=== PATIENT | female | born 1955 | race Caucasian/White ===

== ENCOUNTER → 2017-04-22 12:23 | Outpatient (CLI) | payer OTHER, SELFPAY ==
[2017-04-22 14:18] LABS: Hematocrit 42.1 % (37-47); Hemoglobin 14.1 g/dl (12.0-15.0); Mean Corp Hgb Conc 33.5 g/gl (32-36); Mean Corpuscular Hgb 35.6 pg (27.0-32.0); Mean Corpuscular Volume 106.3 fL (81-99); Mean Platelet Vol. 10.5 fl (6.2-12.0); Platelet Count 216 K/mm3 (150-450); RBC Distribution Width CV 15.3 % (11.6-14.6); Red Blood Count 3.96 M/mm3 (4.2-5.4)
[2017-04-22 14:19] LABS: Scan Indicated on CBC? Y/N NO
[2017-04-22 14:24] LABS: AST(SGOT) 49 U/L (15-37); Alanine Aminotransfer ALT/SGPT 49 U/L (12-78); Albumin, Serum 3.6 g/dL (3.4-5.0); Alkaline Phosphatase 45 U/L (45-117); Bilirubin, Direct 0.12 mg/dL (0.00-0.30); CPK Total, Creatine Kinase 924 U/L (26-192); Creatinine, Serum 0.56 mg/dL (0.55-1.02); EST Glomerular Filtration Rate 117 mL/min (>60); Est Glom Filt Rate - Afr Amer 142 mL/min (>60); Protein, Total 7.6 g/dL (6.4-8.2)
== END ==
PROVIDERS: Family Provider Internal Medicine; PCP Internal Medicine
DX: D89.89 Other specified disorders involving the immune mechanism, not elsewhere classified (principal); Z79.899 Other long term (current) drug therapy
CPT/HCPCS: 36415; 80076; 82550; 82565; 85027

== ENCOUNTER → 2017-06-18 09:28 | Outpatient (CLI) | payer OTHER, SELFPAY ==
[2017-06-18 12:28] LABS: Hematocrit 39.9 % (37-47); Hemoglobin 13.3 g/dl (12.0-15.0); Mean Corp Hgb Conc 33.3 g/gl (32-36); Mean Corpuscular Hgb 35.7 pg (27.0-32.0); Platelet Count 209 K/mm3 (150-450); RBC Distribution Width CV 15.9 % (11.6-14.6); RBC Distribution Width SD 61.8 fl (35.1-43.9); Red Blood Count 3.73 M/mm3 (4.2-5.4); White Blood Count 4.1 K/mm3 (4.4-11.0)
[2017-06-18 12:43] LABS: Scan Indicated on CBC? Y/N NO
[2017-06-18 13:28] LABS: AST(SGOT) 60 U/L (15-37); Alanine Aminotransfer ALT/SGPT 59 U/L (13-56); Albumin, Serum 3.4 g/dL (3.2-5.0); Alkaline Phosphatase 48 U/L (45-117); Bilirubin, Direct 0.12 mg/dL (0.00-0.30); CPK Total, Creatine Kinase 1418 U/L (26-192); Creatinine, Serum 0.41 mg/dL (0.55-1.02); EST Glomerular Filtration Rate 166 mL/min (>60); Est Glom Filt Rate - Afr Amer 201 mL/min (>60); Globulin 3.6 g/dL (2.2-4.2)
== END ==
PROVIDERS: Family Provider Internal Medicine; PCP Internal Medicine; Visit Provider Internal Medicine Rheumatology
DX: D89.89 Other specified disorders involving the immune mechanism, not elsewhere classified (principal); Z79.899 Other long term (current) drug therapy
CPT/HCPCS: 36415; 80076; 82550; 82565; 85027

== ENCOUNTER → 2017-07-14 14:09 | Outpatient (CLI) | payer OTHER, SELFPAY ==
[2017-07-14 15:41] LABS: Hemoglobin 13.1 g/dl (12.0-15.0); Mean Corp Hgb Conc 33.6 g/gl (32-36); Mean Corpuscular Hgb 35.7 pg (27.0-32.0); Mean Corpuscular Volume 106.3 fL (81-99); Mean Platelet Vol. 11.1 fl (6.2-12.0); Platelet Count 209 K/mm3 (150-450); RBC Distribution Width SD 57.7 fl (35.1-43.9); Red Blood Count 3.67 M/mm3 (4.2-5.4); White Blood Count 4.9 K/mm3 (4.4-11.0)
[2017-07-14 15:47] LABS: Scan Indicated on CBC? Y/N NO
[2017-07-14 15:51] LABS: AST(SGOT) 57 U/L (15-37); Alanine Aminotransfer ALT/SGPT 56 U/L (13-56); Albumin, Serum 3.6 g/dL (3.2-5.0); Alkaline Phosphatase 49 U/L (45-117); Bilirubin, Direct 0.13 mg/dL (0.00-0.30); Creatinine, Serum 0.49 mg/dL (0.55-1.02); EST Glomerular Filtration Rate 135 mL/min (>60); Est Glom Filt Rate - Afr Amer 164 mL/min (>60); Globulin 3.6 g/dL (2.2-4.2); Protein, Total 7.2 g/dL (6.4-8.2)
== END ==
PROVIDERS: Family Provider Internal Medicine; PCP Internal Medicine; Visit Provider Internal Medicine Rheumatology
DX: D89.89 Other specified disorders involving the immune mechanism, not elsewhere classified (principal); Z79.899 Other long term (current) drug therapy
CPT/HCPCS: 36415; 80076; 82565; 85027

== ENCOUNTER → 2017-08-23 09:13 | Outpatient (CLI) | payer OTHER, SELFPAY ==
[2017-08-23 12:41] LABS: Hematocrit 41.3 % (37-47); Mean Corp Hgb Conc 33.9 g/gl (32-36); Mean Corpuscular Hgb 36.2 pg (27.0-32.0); Mean Corpuscular Volume 106.7 fL (81-99); Mean Platelet Vol. 10.1 fl (6.2-12.0); Platelet Count 228 K/mm3 (150-450); RBC Distribution Width CV 14.9 % (11.6-14.6); Red Blood Count 3.87 M/mm3 (4.2-5.4); White Blood Count 3.5 K/mm3 (4.4-11.0)
[2017-08-23 13:08] LABS: AST(SGOT) 44 U/L (15-37); Alanine Aminotransfer ALT/SGPT 49 U/L (13-56); Albumin, Serum 3.5 g/dL (3.2-5.0); Alkaline Phosphatase 52 U/L (45-117); Bilirubin, Direct 0.16 mg/dL (0.00-0.30); CPK Total, Creatine Kinase 909 U/L (26-192); Creatinine, Serum 0.43 mg/dL (0.55-1.02); EST Glomerular Filtration Rate 159 mL/min (>60); Est Glom Filt Rate - Afr Amer 192 mL/min (>60); Globulin 3.8 g/dL (2.2-4.2); Protein, Total 7.3 g/dL (6.4-8.2)
[2017-08-23 13:14] LABS: Scan Indicated on CBC? Y/N NO
[2017-08-24 04:08] LABS: HEPATITIS B SURFACE AG Negative (Negative); Immunoglobulin A 165 mg/dL (87-352); Immunoglobulin G 1092 mg/dL (700-1600); Immunoglobulin M 202 mg/dL (26-217)
[2017-08-24 17:41] LABS: Hep B Surface Antibodies Reactive (.); Hep C Antibodies 0.1 s/co ratio (0.0-0.9); Hepatitis B Core Ab Total Negative (Negative)
== END ==
PROVIDERS: Family Provider Internal Medicine; PCP Internal Medicine
DX: Z79.899 Other long term (current) drug therapy (principal); D89.89 Other specified disorders involving the immune mechanism, not elsewhere classified
CPT/HCPCS: 36415; 80076; 82550; 82565; 82784; 85027; 86704; 86706; 86803; 87340

== ENCOUNTER → 2017-09-13 10:20 | Outpatient (CLI) | payer OTHER, SELFPAY ==
[2017-09-13 12:53] LABS: Absolute Lymphocyte Count 0.27 X10^3/ul (0.83-4.51); Absolute Neutrophil Count 3.5 X10^3/uL (2.0-7.7); Basophil# 0.03 X10^3/uL; Basophil% 0.7 % (0-1); Eosinophil# 0.09 X10^3/uL; Eosinophils% 2.2 % (0-5); Hematocrit 38.8 % (37-47); Hemoglobin 13.1 g/dl (12.0-15.0); Lymphocyte # 0.27 X10^3/ul (4.0); Lymphocyte % 6.5 % (19-41); Mean Corp Hgb Conc 33.8 g/gl (32-36); Mean Corpuscular Hgb 35.5 pg (27.0-32.0); Mean Corpuscular Volume 105.1 fL (81-99); Mean Platelet Vol. 10.5 fl (6.2-12.0); Monocyte# 0.25 X10^3/uL; Neutrophil # 3.51 X10^3/uL (2.7-7.7); Neutrophil % 84.4 % (47-70); Platelet Count 238 K/mm3 (150-450); RBC Distribution Width CV 14.8 % (11.6-14.6); RBC Distribution Width SD 55.6 fl (35.1-43.9); Red Blood Count 3.69 M/mm3 (4.2-5.4); White Blood Count 4.2 K/mm3 (4.4-11.0)
[2017-09-13 12:56] LABS: Differential Indicated SCAN CRITERIA MET; POSITIVE COUNT NO; POSITIVE DIFFERENTIAL YES; POSITIVE MORPHOLOGY NO
[2017-09-13 13:21] LABS: Basophilic Stippling RARE; Platelet Estimate ADEQUATE (ADEQ)
== END ==
PROVIDERS: Family Provider Internal Medicine; PCP Internal Medicine; Visit Provider Internal Medicine Rheumatology
DX: D72.819 Decreased white blood cell count, unspecified (principal)
CPT/HCPCS: 36415; 85025

== ENCOUNTER → 2017-10-22 12:13 | Outpatient (CLI) | payer OTHER, SELFPAY ==
[2017-10-22 14:18] LABS: Hematocrit 39.5 % (37-47); Hemoglobin 13.2 g/dl (12.0-15.0); Mean Corp Hgb Conc 33.4 g/gl (32-36); Mean Corpuscular Hgb 34.4 pg (27.0-32.0); Mean Corpuscular Volume 102.9 fL (81-99); Mean Platelet Vol. 10.2 fl (6.2-12.0); Platelet Count 204 K/mm3 (150-450); RBC Distribution Width SD 59.6 fl (35.1-43.9); Red Blood Count 3.84 M/mm3 (4.2-5.4)
[2017-10-22 14:19] LABS: Scan Indicated on CBC? Y/N NO
[2017-10-22 14:29] LABS: AST(SGOT) 33 U/L (15-37); Alanine Aminotransfer ALT/SGPT 36 U/L (13-56); Albumin, Serum 3.8 g/dL (3.2-5.0); Alkaline Phosphatase 43 U/L (45-117); Bilirubin, Direct 0.16 mg/dL (0.00-0.30); CPK Total, Creatine Kinase 577 U/L (26-192); Creatinine, Serum 0.49 mg/dL (0.55-1.02); EST Glomerular Filtration Rate 135 mL/min (>60); Est Glom Filt Rate - Afr Amer 163 mL/min (>60); Globulin 3.7 g/dL (2.2-4.2); Protein, Total 7.5 g/dL (6.4-8.2)
== END ==
PROVIDERS: Family Provider Internal Medicine; PCP Internal Medicine; Visit Provider Internal Medicine Rheumatology
DX: D89.89 Other specified disorders involving the immune mechanism, not elsewhere classified (principal); Z79.899 Other long term (current) drug therapy
CPT/HCPCS: 36415; 80076; 82550; 82565; 85027

== ENCOUNTER 2017-11-30 02:27 | Emergency (ER) | payer OTHER, SELFPAY ==
[2017-11-30 02:27] VITALS: BP 132/81; PULSE 89; RESP 18; TEMP 36.8; O2SAT 96; BMI 27.3
[2017-11-30] MEDS: Morphine 4 MG/ML Syringe IV ×2 (02:49→07:40)
[2017-11-30] MEDS: Ondansetron 4 MG/2 ML Vial IV (02:49)
[2017-11-30] MEDS: 0.9% Normal Saline 1,000 ML 150 ML IV (02:49)
[2017-11-30 03:04] LABS: Absolute Lymphocyte Count 0.21 X10^3/ul (0.83-4.51); Absolute Neutrophil Count 2.9 X10^3/uL (2.0-7.7); Basophil# 0.01 X10^3/uL; Basophil% 0.3 % (0-1); Eosinophil# 0.09 X10^3/uL; Eosinophils% 2.6 % (0-5); Hematocrit 38.9 % (37-47); Hemoglobin 13.6 g/dl (12.0-15.0); Lymphocyte # 0.21 X10^3/ul (4.0); Lymphocyte % 6.1 % (19-41); Mean Corpuscular Hgb 37.6 pg (27.0-32.0); Mean Corpuscular Volume 107.5 fL (81-99); Mean Platelet Vol. 9.8 fl (6.2-12.0); Monocyte# 0.22 X10^3/uL; Monocyte% 6.3 % (0-10); Neutrophil # 2.93 X10^3/uL (2.7-7.7); Neutrophil % 84.4 % (47-70); Platelet Count 182 K/mm3 (150-450); RBC Distribution Width CV 15.6 % (11.6-14.6); RBC Distribution Width SD 60.2 fl (35.1-43.9); Red Blood Count 3.62 M/mm3 (4.2-5.4); White Blood Count 3.5 K/mm3 (4.4-11.0)
[2017-11-30 03:10] LABS: Differential Indicated SCAN CRITERIA MET; POSITIVE COUNT NO; POSITIVE DIFFERENTIAL YES; POSITIVE MORPHOLOGY NO
[2017-11-30 03:17] LABS: AST(SGOT) 32 U/L (15-37); Alanine Aminotransfer ALT/SGPT 36 U/L (13-56); Albumin, Serum 3.6 g/dL (3.2-5.0); Alkaline Phosphatase 46 U/L (45-117); Anion Gap 10 (5-15); BUN 6 mg/dL (7-18); BUN/Creat Ratio 11.4 RATIO (10-20); Bilirubin, Direct 0.27 mg/dL (0.00-0.30); Calcium,Total 8.2 mg/dL (8.5-10.1); Chloride 101 mmol/L (98-107); Creatinine, Serum 0.53 mg/dL (0.55-1.02); EST Glomerular Filtration Rate 125 mL/min (>60); Est Glom Filt Rate - Afr Amer 151 mL/min (>60); Estimated Creatinine Clearance 95.04 ml/min; Globulin 3.9 g/dL (2.2-4.2); Glucose 103 mg/dL (74-106); Lipase 171 U/L (73-393); Potassium 3.6 mmol/L (3.5-5.1); Protein, Total 7.5 g/dL (6.4-8.2); Sodium Level 137 mmol/L (136-145)
[2017-11-30 03:56] LABS: Differential Comment SCANNED
--- NOTE | 2017-11-30 04:12 | US_ITS ---
STUDY: ABDOMINAL ULTRASOUND - RIGHT UPPER QUADRANT REASON FOR VISIT: Female, 62 years old. Right upper quadrant pain, nausea and vomiting TECHNIQUE: Ultrasound evaluation of the right upper quadrant was performed with real-time and static coe-scale imaging. TECHNICAL QUALITY: Adequate. COMPARISON: None. FINDINGS: Liver: The liver measures 16.2 cm. There is normal echogenicity of the liver. The bile ducts are within normal limits. There is hepatic color flow. The direction of portal flow is hepatopetal. There is no demonstrated mass lesion. Gallbladder: Normal distended gallbladder. The gallbladder wall measures 3 mm. There is a negative sonographic Wan's sign. There is no pericholecystic fluid. There are no gallstones. Common Bile Duct (C.B.D.): The common bile duct measures 3.2 mm. Pancreas: Normal size of the head, body and tail of the pancreas. There is normal echogenicity of the pancreas. There is no demonstrated pancreatic mass or cyst. Right Kidney: Normal size of the right kidney. The right kidney measures 11.4 x 6.3 x 5.5 cm. Normal renal cortex. The right cortex measures 1.9 cm. There is no demonstrated renal mass or cyst. There is no right hydronephrosis. US/Gallbladder IMPRESSION: Normal right upper quadrant ultrasound examination. Electronically Signed: Joseph Tony DO at 8:59 EDT Tel , Service support ,
--- NOTE | 2017-11-30 04:23 | ED.DCSUM_ITS ---
- ER Visit Summary Date of Service: 11/30/17 Chief Complaint: Patient arrives with colicky right upper quadrant abdominal pain radiating through to her back. History of Present Illness: The patient is a 62 F who presents because of colicky right upper quadrant pain for the past several hours associated with nausea and vomiting. Pain was made worse after eating chips. She does give history of intermittent pain with greasy/rich food. [place] She denies any leg pain or discoloration. She denies shortness of breath, chest pain of any type including pleuritic. She denies cough. She denies fever, chills or night sweats. She denies any ocular, auditory or visual symptoms. She denies trauma. She denies skin lesions. She denies dysuria, frequency, urgency or hematuria. She apparently did not feel well prior to vomiting. Physical Examination: Vital signs are marked for slight elevation in blood pressure. HEENT exam is marked for dry mucosa. Heart is regular without murmur , gallop or rub. S1 and S2 are normal. Lungs are clear to auscultation with good movement of air bilaterally. Abdomen is soft with tenderness in the right upper quadrant and the clinical Wan sign. Bowel sounds are slightly diminished. There is no tympana. There is no rebound tenderness. There is no CVA tenderness noted. There are no skin lesions and specifically lesions to suggest herpes varicella-zoster. Lower extremity exam is remarkable for bilateral pedal edema. Neuro exam is nonfocal. Test Results: CBC is 3.5 with 88 segs. Electro panels unremarkable. Hepatic is remarkable for total bilirubin of 1.1. 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 This may explain her neutropenia. Emergency Department Course and Treatment: IV was established she was medicated with 4 mg of Zofran and 4 mg of morphine. She had a 50% reduction in her pain. She states the pain is presently a 5. Appropriate blood work was obtained to evaluate for biliary disease and to determine if an emergent ultrasound was indicated versus waiting to the morning or outpatient. Treatment Plan: Patient was informed of her results. She was given option of staying until the weigh box tender presents in the morning for ultrasound or make arrangements for outpatient. She elected to stay in the department. At 0700 I was informed that patient requested more pain medicine. An additional 4 mg of morphine was ordered. Disposition: Pending ultrasound of the right upper quadrant. Patient was turned over Dr. Eliezer Sethi to make disposition. Impression: Acute right upper quadrant pain with nausea and vomiting This note was generated with [employer] dictation software. It may contain incorrect words, spelling, and punctuation that were not noted in review of the chart prior to signing ED Disposition - Plan for ED Patient: Chief Complaint: Abd Pain Referrals: Lorena Talbot MD [Primary Care Provider] -
[2017-11-30 05:01] VITALS: RESP 18
[2017-11-30 05:30] VITALS: BP 109/66; PULSE 71; RESP 18; O2SAT 99
[2017-11-30 07:34] VITALS: BP 102/58; PULSE 75; RESP 14; O2SAT 98
[2017-11-30 09:04] VITALS: BP 111/76; PULSE 67; RESP 14; O2SAT 97
--- NOTE | 2017-11-30 09:34 | ED.VISSUMM ---
- ER Visit Summary Date of Service: 11/30/17 Chief Complaint: [] History of Present Illness: The patient is a 62 F [] Physical Examination: [] Test Results: [] Emergency Department Course and Treatment: [] Treatment Plan: [] Disposition: [] Impression: [] This note was generated with [employer] dictation software. It may contain incorrect words, spelling, and punctuation that were not noted in review of the chart prior to signing ED Disposition - Plan for ED Patient: Disposition: Home or Assisted Living Chief Complaint: Abd Pain Diagnosis: Right upper quadrant abdominal pain of unknown etiology Instructions: ED Abdominal Pain Unkn Cause Prescriptions: Hydrocodone Bitart/Apap 5-325 [[place] 5MG-325MG] 1 tab PO Q6H PRN PRN 3 Days #10 tab PRN Reason: Pain Omeprazole [Prilosec] 20 mg PO DAILY #30 cap Referrals: Lorena Talbot MD [Primary Care Provider] -
--- NOTE | 2017-11-30 09:37 | ED.DCSUM_ITS ---
- ER Visit Summary Date of Service: 11/30/17 Chief Complaint: [] History of Present Illness: The patient is a 62 F [] Physical Examination: [] Test Results: [] Emergency Department Course and Treatment: [] Treatment Plan: [] Disposition: [] Impression: [] This note was generated with [employer] dictation software. It may contain incorrect words, spelling, and punctuation that were not noted in review of the chart prior to signing ED Disposition - Plan for ED Patient: Disposition: Home or Assisted Living Chief Complaint: Abd Pain Diagnosis: Right upper quadrant abdominal pain of unknown etiology Instructions: ED Abdominal Pain Unkn Cause Prescriptions: Hydrocodone Bitart/Apap 5-325 [[place] 5MG-325MG] 1 tab PO Q6H PRN PRN 3 Days #10 tab PRN Reason: Pain Omeprazole [Prilosec] 20 mg PO DAILY #30 cap Referrals: Lorena Talbot MD [Primary Care Provider] -
[2017-11-30 10:04] VITALS: BP 107/63; PULSE 73; RESP 16; O2SAT 100
== END 2017-11-30 10:06 | disposition home or self-care (01) ==
PROVIDERS: Emergency Provider Emergency Medicine; Family Provider Internal Medicine; PCP Internal Medicine
DX: R10.11 Right upper quadrant pain (principal); R11.2 Nausea with vomiting, unspecified; D89.89 Other specified disorders involving the immune mechanism, not elsewhere classified; Z87.891 Personal history of nicotine dependence; Z79.52 Long term (current) use of systemic steroids; Z79.899 Other long term (current) drug therapy
CPT/HCPCS: 76705; 80048; 80076; 83690; 85025; 96361; 96374; 96375; 96376; 99284; J7030; A4216; J2405

== ENCOUNTER → 2018-03-14 13:40 | Outpatient (CLI) | payer OTHER, SELFPAY ==
[2018-03-14 16:25] LABS: Absolute Lymphocyte Count 0.29 X10^3/ul (0.83-4.51); Absolute Neutrophil Count 5.5 X10^3/uL (2.0-7.7); Basophil# 0.02 X10^3/uL; Basophil% 0.3 % (0-1); Eosinophil# 0.06 X10^3/uL; Hematocrit 41.1 % (37-47); Hemoglobin 13.5 g/dl (12.0-15.0); Lymphocyte # 0.29 X10^3/ul (4.0); Lymphocyte % 4.8 % (19-41); Mean Corp Hgb Conc 32.8 g/gl (32-36); Mean Corpuscular Hgb 34.4 pg (27.0-32.0); Mean Corpuscular Volume 104.6 fL (81-99); Mean Platelet Vol. 9.9 fl (6.2-12.0); Monocyte# 0.14 X10^3/uL; Monocyte% 2.3 % (0-10); Neutrophil # 5.51 X10^3/uL (2.7-7.7); Neutrophil % 91.6 % (47-70); Platelet Count 255 K/mm3 (150-450); RBC Distribution Width CV 15.6 % (11.6-14.6); RBC Distribution Width SD 58.5 fl (35.1-43.9); Red Blood Count 3.93 M/mm3 (4.2-5.4)
[2018-03-14 16:32] LABS: Differential Indicated SCAN CRITERIA MET; POSITIVE COUNT NO; POSITIVE DIFFERENTIAL YES; POSITIVE MORPHOLOGY NO
[2018-03-14 16:50] LABS: AST(SGOT) 76 U/L (15-37); Alanine Aminotransfer ALT/SGPT 92 U/L (13-56); Albumin, Serum 3.6 g/dL (3.2-5.0); Alkaline Phosphatase 61 U/L (45-117); Bilirubin, Direct 0.14 mg/dL (0.00-0.30); CPK Total, Creatine Kinase 1954 U/L (26-192); Creatinine, Serum 0.57 mg/dL (0.55-1.02); EST Glomerular Filtration Rate 113 mL/min (>60); Est Glom Filt Rate - Afr Amer 137 mL/min (>60); Globulin 3.7 g/dL (2.2-4.2); Protein, Total 7.3 g/dL (6.4-8.2)
== END ==
PROVIDERS: Family Provider Internal Medicine; PCP Internal Medicine; Referring Provider Internal Medicine Rheumatology; Visit Provider Internal Medicine Rheumatology
DX: D89.89 Other specified disorders involving the immune mechanism, not elsewhere classified (principal); Z79.899 Other long term (current) drug therapy
CPT/HCPCS: 36415; 80076; 82550; 82565; 85025

== ENCOUNTER → 2018-03-24 09:18 | Outpatient (CLI) | payer OTHER, SELFPAY ==
--- NOTE | 2018-03-24 09:21 | BI_ITS ---
MAMMOGRAPHY - BILATERAL SCREENING REASON FOR EXAM: Female, 63 years old. Routine annual screening examination. PERTINENT HISTORY: Personal history of breast cancer. Prior left lumpectomy with radiation therapy. Sr. With breast cancer. Mother with breast cancer. Aunt with breast cancer. TECHNIQUE: Digital bilateral breast shanice (3D mammographic acquisition) in the CC and MLO projections. 2-D mediolateral oblique (MLO) and craniocaudad (CC) views of both breasts were obtained. CAD: Full Field Digital Mammography with Computer Added Detection was performed. COMPARISON: Comparison is made with prior examination dated March 16, 2017 and March 10, 2016. FINDINGS: Breast Composition: The breasts are heterogeneously dense, which may obscure small masses. There are no dominant masses or suspicious calcifications. Once again, there is evidence of a focal area of architectural distortion in the inferior midportion of the left breast in keeping with prior lumpectomy and radiation therapy. Stable postoperative scarring and focal calcification. A tissue clip marker is seen in the deep slightly lateral portion of the left breast. Stable skin thickening of the left breast. No other significant abnormalities are identified. There has been no significant change since the prior study. BI/SCREENING MAMM (CAD), BILAT IMPRESSION: Stable bilateral screening mammogram. Yearly follow-up mammogram recommended. (A) ASSESSMENT CATEGORY: BIRADS Category 2: Benign. A letter regarding these results will be sent to the patient by the facility within 30 days. Approximately 10% of breast cancers are not detected by mammography. A normal mammogram should not delay biopsy of a clinically suspicious abnormality. [id number] Electronically Signed: Tobin Salcido MD at 11:21 EST Tel [phone], Service support ,
--- NOTE | 2018-03-24 09:24 | BD_ITS ---
STUDY: DUAL ENERGY X-RAY ABSORPTIOMETRY / DXA REASON FOR EXAM: Female, 63 years old. The patient is postmenopausal. Loss of height. TECHNIQUE: Bone Mineral Density (BMD) measurements of lumbar spine and bilateral hips were obtained. COMPARISON: Comparison is made with prior study dated March 10, 2016. FINDINGS: Lumbar Spine (L1-L4): g/cm2 (1.214) / T-score (0.4) / Z-score (1.8) Findings are suggestive of normal bone density with a low fracture risk. Left Femur Total: g/cm2 (0.788) / T-score (-1.7) / Z-score (-0.7) Left Femoral Neck: g/cm2 (0.727) / T-score (-2.2) / Z-score (-0.9) Right Femur Total: g/cm2 (0.791) / T-score (-1.7) / Z-score (-0.6) Right Femoral Neck: g/cm2 (0.728) / T-score (-2.2) / Z-score (0.9) The T-Scores on the most recent prior examination were: Lumbar Spine (L1-L4): There has been improvement of bone density since the previous examination. Left Femur Total: which represents an improvement of 2.1%. Right Femur Total: which represents an improvement of 0.8%. BD/Dexa Bone Density Study IMPRESSION: The patient is considered osteopenic as outlined below according to World Jose Organization (WHO) criteria with a moderate fracture risk. There has been improvement of bone density since the previous examination. Reference Information: The T-score is the number of standard deviations above or below the standard which is normal for young adults at their peak bone mineral density. The World Health Organization (WHO) interprets the T-scores as follows: Above -1 Normal bone density Between -1 and -2.5 Osteopenia Equal to / or below -2.5 Osteoporosis As a practical clinical guideline, osteopenia may be graded as follows: Mild -1 through -1.5 Moderate -1.6 through -2.0 Severe -2.1 through -2.4 The Z-score is the number of standard deviations above or below age-matched controls. A Z-score of less than -1.5 would be considered abnormal. References: 1. NIH Osteoporosis and Related Bone Diseases http://www.osteo.org 2. International Society for Clinical Densitometry http://www.iscd.org 3. National Osteoporosis Foundation http://www.nof.org Electronically Signed: Tobin Salcido MD at 12:33 EST Tel [phone], Service support ,
--- OUTSIDE RECORDS SUMMARY | 2018-05-19 10:00 | XMS RPT_ITS | Continuity of Care Document ---
:1955 Author Organization [facility] Address [facility] [facility] [address] [place] [address] Phone Care Team Providers Name Role Phone Dahiana HERRING, Lorena Lewis Unavailable Trevor HERRING, Darline Lewis Unavailable Betzy HERRING, Jaxon Tee Unavailable Cricket Paz Unavailable Antonio Vang Unavailable Dr. Arsh Gimenez Unavailable Zaida Corbin LPN Unavailable Unavailable VINICIO Hillman Unavailable Unavailable Unavailable Unavailable Problems Name Dates Details Abdominal pain (R10.9, 789.00) Status: Active Abnormal ankle brachial index (R68.89, 796.4) Status: Active Acute foot pain, right (M79.671, 729.5) Comments: had over corrected bunion and now think needs fusion. 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 nesbitt-- CPK can be 3000+ currently 1900 / inflammation responding to treatment Status: Active BMI 25.0-25.9,adult (Z68.25, V85.21) Status: Active Cellulitis of arm (L03.119, 682.3) Comments: on omnicef 300mg bid x 10 days Status: Active Cough (R05, 786.2) Comments: not in [place] here in [place]. some PND no reflux. Status: Active Deliveries (Parity) Comments: 2 Status: Active Disordered sleep (G47.9, 780.50) Comments: using calm day and working stay away from [facility]. Status: Active Epigastric pain (R10.13, 789.06) Status: Active Hyperlipidemia, mild (E78.5, 272.4) Comments: reveiwed with patient recent tests adn ldl up but comp fairly good MPO good. willincrease fish , raw tree nuts, exercise and work with Dr. Gamble on nutural. supplements Status: Active Immunocompromised, acquired (D84.9, 279.3) Comments: from meds Status: Active Increased mean corpuscular volume (R71.8, 790.09) Comments: since 2013 ? meds tsh good. had vit b12 folate checked. usual ETOH twice a week Status: Active Inflammatory arthritis (M19.90, 714.9) Comments: saw Dr. Fitzpatrick at [facility] told antisynthatase syndrome. 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 Status: Active Nonsmoker (Z78.9, V49.89) Status: Active Osteoarthrosis, not specified whether generalized/localized, lower leg (M17.9, 715.96) Status: Active Osteoporosis (M81.0, 733.00) Comments: on Boniva 6 months and not help, doing Prolia due May 2017 labs good. no Forteo with XRT Status: Active Positive PPD (R76.11, 795.51) Comments: see ID at [facility] in past Status: Active Pregnancies () Comments: 2 Status: Active Preop examination (Z01.818, V72.84) Status: Active Screening mammogram, encounter for (Z12.31, V76.12) Status: Active Stress reaction (Renamed from Acute reaction to stress) (F43.0, 308.9) Comments: some issue with son. broke off with relationship had 2 years ago. some is winter. ding better. Status: Active Thrombophlebitis arm (I80.8, 451.84) Comments: she is already on Augmentin I do not think this is infectious I told her to use warm compresses Aleve two tablets twice a day just for a few days because of her liver elevation and a baby aspirin a day if it does not get better over the next few days or worsens will have to do an ultrasound and consider a different anabiotic Status: Active Well woman exam (Renamed from Encounter for well woman exam) (Z01.419, V72.31) Comments: 06-25-17 [facility] exam: Mammogram 03-16-17, Bone density 03-10-16, PHQ-9=46CIT=28/28 hx of total hysterectomy no pap and told by Dr. phillips no pap. colonscopy 11-06 good but family history colon cancer. need prevnar 13 Status: Active Medications Name Dates Details Ativan 1 MG Oral Tablet 1 (one) Tablet take one 30 min before flying for 0 days Quantity: 5 {Tablet} Refills: 0 Ordered:02-Nov-2017 Lorena Talbot MD, MD, Dana M Start : 02-Nov-2017 Active Comments:five11-02-17 called to BMT AZATHIOPRINE, 100MG (Oral Tablet) 2 Tablet daily for 0 days Quantity: 30 {Tablet} Refills: 0 Ordered:01-Jan-2015 Carmen Holt LPN Start : 28-Nov-2013 Active Comments:per Dr. Amari Mendoza 0.05 % External Cream 1 (one) Cream bid for 0 days Quantity: 1 {Tube} Refills: 0 Ordered:16-Apr-2016 Lorena Talbot MD, MD, Dana M Start : 16-Apr-2016 Active Hydrocodone-Acetaminophen 5-325 MG Oral Tablet 1 (one) Tablet every 6 hours prn for 0 days Quantity: 30 {Tablet} Refills: 0 Ordered:03-Apr-2016 Lorena Talbot MD, MD, Dana M Start : 03-Apr-2016 Active Comments:thirty OMEGA 3, 1000MG (Oral Capsule) qd (1000 MG) Active PredniSONE 5 MG Oral Tablet 1 (one) Tablet qd for 0 days Quantity: 18 {Tablet} Refills: 0 Ordered:28-Feb-2018 Lorena Talbot MD, MD, Dana M Start : 28-Feb-2018 Active Prolia 60 MG/ML Subcutaneous Solution 1 (one) Solution Solution every 6 months for 0 days Quantity: 1 {Each} Refills: 4 Ordered:16-Apr-2016 VINICIO Hillman Start : 02-Apr-2016 Active Proventil HFA 108 (90 Base) MCG/ACT Inhalation Aerosol Solution 1 (one) Aerosol Soln Aerosol Soln 2 puffs tid for 0 days Quantity: 1 {Each} Refills: 0 Ordered:02-Jul-2016 VINICIO Hillman Start : 02-Jul-2016 Active Turmeric 450 MG Oral Capsule 1 (one) Capsule qd for 0 days Quantity: 30 {Capsule} Refills: 0 Ordered:22-Sep-2016 Lorena Talbot MD, MD, Dana M Start : 22-Sep-2016 Active Align 4 MG Oral Capsule 1 (one) Capsule Capsule daily for 0 days Quantity: 30 {Capsule} Refills: 0 Ordered:31-Oct-2015 VINICIO Hillman Start : 11-Jul-2015 End : 31-Oct-2015 Inactive ALPRAZolam 1 MG Oral Tablet uad Tablet take 1/2 hour before travel and prn there after for 0 days Quantity: 5 {Tablet} Refills: 0 Ordered:09-Jan-2016 VINICIO Hillman Start : 09-Dec-2015 End : 09-Jan-2016 Inactive ARIMIDEX, 1MG (Oral Tablet) 1 qd for 0 days Refills: 0 Ordered:26-Jun-2010 VINICIO Hillman End : 26-Jun-2010 Inactive Augmentin 875-125 MG Oral Tablet 1 (one) Tablet Tablet bid for 10 days Quantity: 20 {Tablet} Refills: 0 Ordered:02-Jul-2016 Lorena Talbot MD, MD, Dana M Start : 02-Jul-2016 End : 12-Jul-2016 Inactive Cefdinir 300 MG Oral Capsule 1 (one) Capsule bid for 0 days Quantity: 20 {Capsule} Refills: 0 Ordered:30-Nov-2017 VINICIO Hillman Start : 20-Jul-2017 End : 30-Nov-2017 Inactive CHERATUSSIN AC, 100-10MG/5ML (Oral Syrup) 1-2 Teaspoon qhs prn for 0 days Quantity: 6 {Ounce} Refills: 0 Ordered:29-Mar-2015 Nichole Fuentes LPN Start : 04-Mar-2015 End : 29-Mar-2015 Inactive CIPROFLOXACIN HCL, 750MG (Oral Tablet) 1 Tablet daily for 3 days Quantity: 3 {Tablet} Refills: 0 Ordered:04-May-2011 Dahiana HERRING, Lorena Cheney MD, Lorena Lewis Start : 04-May-2011 End : 07-May-2011 Inactive CLARITIN, 10MG (Oral Capsule) 1 (one) Capsule Capsule daily for 0 days Quantity: 30 {Capsule} Refills: 0 Ordered:18-Dec-2013 Nichole Fuentes LPN Start : 18-Jul-2013 End : 18-Dec-2013 Inactive CLOBEX SPRAY, 0.05% (External Liquid) 1 Liquid apply to areas in hair bid for 0 days Quantity: 1 {Liquid} Refills: 0 Ordered:18-Jul-2013 Evelin Lance Start : 07-Oct-2012 End : 18-Jul-2013 Inactive FLEXERIL, 10MG (Oral Tablet) 1 Tablet three times daily, as needed for 0 days Quantity: 20 {Tablet} Refills: 0 Ordered:03-Sep-2009 VINICIO Hillman Start : 31-May-2009 Inactive Comments:Medication taken as needed. FLONASE, 50MCG/ACT (Nasal Suspension) 1 (one) Suspension Suspension 2 spray each nostril daily for 0 days Quantity: 1 {Container} Refills: 0 Ordered:18-Dec-2013 Nichole Fuentes LPN Start : 18-Jul-2013 End : 18-Dec-2013 Inactive FOLIC ACID, 1MG (Oral Tablet) 1 (one) Tablet Tablet qd for 0 days Quantity: 30 {Tablet} Refills: 0 Ordered:18-Dec-2013 Nichole Fuentes LPN Start : 08-May-2013 End : 18-Dec-2013 Inactive HYDROCODONE-ACETAMINOPHEN, 5-300MG (Oral Tablet) 1 Tablet at night for 0 days Quantity: 30 {Tablet} Refills: 0 Ordered:08-Jun-2013 Nichole Fuentes LPN Start : 07-Apr-2013 End : 08-Jun-2013 Inactive Comments:thirty LASIX, 20MG (Oral Tablet) 1 (one) Tablet daily for 3 days Quantity: 20 {Tablet} Refills: 0 Ordered:11-Aug-2013 Pat Buchanan CNP Start : 11-Aug-2013 End : 14-Aug-2013 Inactive Comments:ok for twenty pills but only taking for 3 days LIDODERM, 5% (External Patch) 1 for 0 days Refills: 0 Ordered:03-Apr-2008 Marilee Villavicencio Start : 03-Apr-2008 End : 27-Jun-2008 Inactive MERIDIA, 10MG (Oral Capsule) 1 Capsule daily for 0 days Quantity: 30 {Capsule} Refills: 0 Ordered:26-Jun-2010 VINICIO Hillman Start : 14-Nov-2009 End : 26-Jun-2010 Inactive METHOTREXATE, 2.5MG (Oral Tablet) 6 Tablet Tablet q weekly for 0 days Quantity: 16 {Tablet} Refills: 0 Ordered:19-Sep-2013 Elisa Mcgregor LPN Start : 18-Jul-2013 End : 19-Sep-2013 Inactive MOBIC, 7.5MG (Oral Tablet) 1 (one) Tablet bid for 0 days Quantity: 60 {Tablet} Refills: 0 Ordered:03-Sep-2009 VINICIO Hillman Start : 31-Jul-2009 Inactive Comments:with food MULTIVITAMIN (Oral Liquid) 1 (one) qd Inactive OMEPRAZOLE, 20MG (Oral Tablet Delayed Release) 1 (one) Tablet DR Tablet DR qd for 0 days Quantity: 30 {Tablet} Refills: 0 Ordered:18-Dec-2013 Nichole Fuentes LPN Start : 21-Jul-2013 End : 18-Dec-2013 Inactive POTASSIUM CHLORIDE ER, 20MEQ (Oral Tablet Extended Release) 1 (one) Tablet ER daily for 3 days Quantity: 20 {Tablet} Refills: 0 Ordered:11-Aug-2013 Jodyprincecirilo GARCIAPat Start : 11-Aug-2013 End : 14-Aug-2013 Inactive Comments:ok for twenty tabs PredniSONE 20 MG Oral Tablet 1 (one) Tablet 1 bid for 3 dys then 1 day for 3 days then 1.2 daily for 3 days then back to the 5 mg a day for 9 days Quantity: 9 {Tablet} Refills: 0 Ordered:02-Jul-2016 Dahiana HERRING, Lorena Cheney MD, Lorena Lewis Start : 02-Jul-2016 End : 11-Jul-2016 Inactive Sucralfate 1 GM Oral Tablet 1 (one) Tablet Tablet before meals and before bedtime for 2 weeks for 14 days Quantity: 56 {Tablet} Refills: 0 Ordered:30-Nov-2017 Lorena Talbot MD, MD, Dana M Start : 30-Nov-2017 End : 14-Dec-2017 Inactive TAMOXIFEN CITRATE, 20MG (Oral Tablet) 1 qd (20 MG) Inactive TiZANidine HCl 4 MG Oral Tablet 1 (one) Tablet Tablet q 6-8 hours prn for 0 days Quantity: 20 {Tablet} Refills: 0 Ordered:02-Apr-2016 VINICIO Hillman Start : 09-Jan-2016 End : 02-Apr-2016 Inactive Comments:twenty TOPICORT, 0.25% (External Cream) 1 Cream bid for 0 days Quantity: 1 {Cream} Refills: 0 Ordered:16-Oct-2008 VINICIO Hillman Start : 16-Oct-2008 End : 04-Apr-2009 Inactive TWINRIX, 720-20 (Intramuscular Suspension) 1 Suspension q weekly for 1 days Quantity: 1 {Suspension} Refills: 0 Ordered:04-May-2012 Lorena Talbot MD, MD, Dana M Start : 04-May-2012 End : 05-May-2012 Inactive Comments:#3 injection Zanaflex 4 MG Oral Tablet 1 (one) Tablet every 8 hours prn for 0 days Quantity: 20 {Tablet} Refills: 0 Ordered:25-Jun-2017 VINICIO Hillman Start : 22-Sep-2016 End : 25-Jun-2017 Inactive Zithromax Z-Jd 250 MG Oral Tablet uad Tablet Tablet until gone for 0 days Quantity: 1 {Package} Refills: 0 Ordered:22-Sep-2016 VINICIO Hillman Start : 30-Jun-2016 End : 22-Sep-2016 Inactive AMOXICILLIN, 125MG (Oral Tablet Chewable) 1 BID for 0 days Refills: 0 Ordered:27-Jun-2008 Marilee Villavicencio End : 02-Sep-2007 Discontinued BONIVA, 150MG (Oral Tablet) 1 (one) Tablet monthly for 0 days Quantity: 1 {Tablet} Refills: 5 Ordered:01-Jan-2015 Slarb Carmen BENAVIDES Start : 22-Feb-2014 End : 01-Jan-2015 Discontinued PATANOL, 0.1% (Ophthalmic Solution) 1 (one) Drop(s) BID for 0 days Quantity: 1 {Solution} Refills: 1 Ordered:23-Sep-2007 Marilee Villavicencio Start : 23-Sep-2007 End : 03-Apr-2008 Discontinued RANITIDINE HCL, 150MG (Oral Tablet) 1 (one) Tablet Tablet qhs for 0 days Quantity: 30 {Tablet} Refills: 0 Ordered:01-Jan-2015 Carmen Holt LPN Start : 21-Jul-2013 End : 01-Jan-2015 Discontinued TAMOXIFEN CITRATE, 20MG (Oral Tablet) 1 QD for 0 days Refills: 0 Ordered:27-Jun-2008 Marilee Villavicencio End : 02-Sep-2007 Discontinued TRAMADOL HCL, 50MG (Oral Tablet) 1 (one) Tablet Tablet every 6 horu prn severe pain for 0 days Quantity: 30 {Tablet} Refills: 0 Ordered:11-Jul-2015 Dahiana HERRING, Lorena Cheney MD, Lorena Lewis Start : 11-Jul-2015 End : 11-Jul-2015 Discontinued Comments:thirtycalled to BMT 01/02 cmanchak Allergies and Adverse Reactions Name Dates Details No Known Drug Allergies (Allergy) Status: Active Past Medical History Name Dates Details Abnormal blood chemistry (R79.9, 790.6) Comments: pos PATRICK-- pos CCP but neg RF Status: Inactive as of 11-Jul-2015 Acute bronchitis and bronchiolitis (J20.9, 466.0) Status: Inactive as of 22-Sep-2016 BMI 25.0-25.9,adult (Z68.25, V85.21) Status: Inactive as of 22-Sep-2016 BMI between 19-24,adult (V85.1) Status: Resolved as of 25-Jun-2017 Body mass index (BMI) of 19.0-24.9 (V85.1) Status: Resolved as of 25-Jun-2017 Breast density (R92.2, 611.79) Comments: Left breast 1.6x2x.8cm Density Left breast, deep in breast tissue Status: Inactive as of 11-Jul-2015 Breast pain, left (N64.4, 611.71) Comments: left 1pm position and left 7 pm positition Status: Inactive as of 11-Jul-2015 Breast screening (Z12.39, V76.10) Status: Inactive as of 11-Jul-2015 Carpal tunnel syndrome, unspecified laterality (G56.00, 354.0) Status: Inactive as of 11-Jul-2015 Cellulitis of arm (L03.119, 682.3) Comments: better on right arm clearing up .she is off aziathioprine for 2 weeks. Status: Inactive as of 22-Sep-2016 Cerumen impaction (H61.20, 380.4) Status: Inactive as of 11-Jul-2015 Contact dermatitis due to poison farhana (L23.7, 692.6) Status: Inactive as of 23-Oct-2008 Elevated CPK (R74.8, 790.5) Comments: REPEAT today with standing order labs Status: Inactive as of 11-Jul-2015 ETD (eustachian tube dysfunction), left (H69.82, 381.81) Comments: with recent sinusitis will take zyetic D and use afrin before on planen if continues or ongoingissue with travel and ears plugged and paintheb to ENT for tube and allergy testing Status: Inactive as of 24-Apr-2016 GERD (gastroesophageal reflux disease) (K21.9, 530.81) Status: Inactive as of 22-Sep-2016 Headache, occipital (R51, 784.0) Comments: think muscular had temporal artery biopsy negative on that side. last CRP adn ESR gbetter almost normal. alot stres right now. willdo stretches heat mscule relaxant. Status: Inactive as of 26-Nov-2016 Hearing loss of left ear due to cerumen impaction (H61.22, 389.8) Status: Inactive as of 22-Sep-2016 Joint pain (M25.50, 719.40) Status: Inactive as of 11-Jul-2015 Knee pain (M25.569, 719.46) Comments: do injection in knees reveiwed with patient xrays look up from the [facility]. CPPD. Status: Inactive as of 11-Jul-2015 Lipoma (D17.9, 214.9) Status: Inactive as of 11-Jul-2015 Low back pain (M54.5, 724.2) Status: Inactive as of 03-Oct-2008 Malnutrition (E46, 263.9) Status: Inactive as of 11-Jul-2015 Neck pain (M54.2, 723.1) Status: Inactive as of 22-Sep-2016 Obesity, unspecified (E66.9, 278.00) Status: Inactive as of 22-Sep-2016 Osteoarthritis (M17.10, 715.96) [facility] Status: Inactive as of 11-Jul-2015 Otalgia, unspecified ear (H92.09, 388.70) Status: Inactive as of 11-Jul-2015 Other general medical examination for administrative purposes (Z02.89, V70.3) Comments: mission trip physical Status: Inactive as of 11-Jul-2015 Otitis Media (382.9) Status: Inactive as of 11-Jul-2015 Pain in forearm, unspecified laterality (M79.639, 729.5) Comments: wrist Status: Inactive as of 11-Jul-2015 Pain in thoracic spine (M54.6, 724.1) Status: Inactive as of 11-Jul-2015 Pain of hand, unspecified laterality (M79.643, 729.5) Comments: in wrist on left. Status: Inactive as of 11-Jul-2015 Paresthesia (R20.2, 782.0) Status: Inactive as of 11-Jul-2015 Physical exam, routine (Z00.00, V70.0) Comments: working on weight loss. exercise alot. very active.working on diet. good BD 10-11. TAHBSO. getting mammo yearly. colonscopy 2000. chol fall 11 good Status: Inactive as of 11-Jul-2015 Plantar fasciitis (M72.2, 728.71) Status: Inactive as of 11-Jul-2015 Pneumonia (J18.9, 486) Status: Resolved as of 25-Jun-2017 Pre-operative general physical examination (Z01.818, V72.83) Status: Inactive as of 11-Jul-2015 Rash (R21, 782.1) Comments: around latera eye canthus. think contact dermatitis by look if vesicles like singles or pain. or if warm red hot then call Status: Inactive as of 22-Sep-2016 Sinusitis (J32.9, 473.9) Status: Inactive as of 22-Sep-2016 Sinusitis, acute (J01.90, 461.9) Status: Inactive as of 11-Jul-2015 Swelling (R60.9, 782.3) Comments: equal both legs recently off of prednisonehas Status: Inactive as of 11-Jul-2015 Tinnitus (H93.19, 388.30) Comments: ? related to MTX ? related sinus allergies Status: Inactive as of 11-Jul-2015 Tobacco abuse, in remission (Renamed from Tobacco dependence in remission) (F17.201, V15.82) Status: Inactive as of 20-Jul-2017 Travel sickness (T75.3XXA, 994.6) Status: Resolved as of 25-Jun-2017 Unspecified breast disorder (611.9) Status: Inactive as of 11-Jul-2015 Unspecified conjunctivitis (H10.9, 372.30) Comments: allergic Status: Inactive as of 03-Oct-2008 Unspecified Diagnosis Status: Inactive as of 11-Jul-2015 Unspecified Diagnosis Status: Inactive as of 11-Jul-2015 Unspecified Diagnosis Status: Inactive as of 11-Jul-2015 Unspecified Diagnosis Status: Inactive as of 10-Jan-2016 Unspecified Diagnosis Status: Inactive as of 11-Jul-2015 Unspecified Diagnosis Status: Inactive as of 11-Jul-2015 Upper respiratory disease (J39.9, 478.9) Comments: probably viral will return if no better in 7 days or sooner if develop new sx or get worse Status: Inactive as of 11-Jul-2015 WWV Status: Inactive as of 11-Jul-2015 Procedures Procedure Dates Details Appendectomy Completed Comments: 1961 Arthoscopic knee surgery left 1999 Completed bilateral foot [id number] Completed Carpal Tunnel Completed Comments: left 2010 Dr. Chandler Carpal Tunnel right wrist Completed Comments: Dr. Chandler 06-03-10 Colonoscopy Completed Comments: 11-06-13 Dr. Gimenez repeat in 10 years Hernia 1997 Completed Hysterectomy, Total Completed Comments: Dr. Mabry Lumpectomy Completed Comments: 06/2006- breast Tonsillectomy Completed Comments: 1960 Date Value Details 30-Nov-2017 Emergency Department Summary Result: Comments: See Note; NOTES: [facility] Medical Records Department [address] [place] [address] Emergency Department Summary 11/30/17 0934 MR#: [id number] Acct: [id number] Name: SYLVIA RAMIREZ Rep #: [id number] : 1955 62 From: Eliezer Ojeda DO PCP: Lorena Talbot MD Status: REG ER - ER Visit Summary Date of Service: 11/30/17 Chief Complaint: [] History of Present Il lness: The patient is a 62 F [] Physical Examination: [] Test Results: [] Emergency Department Course and Treatment: [] Treatment Plan: [] Disposition: [] Impression: [] This note was generated with [employer] software. It may contain incorrect words, spelling, and punctuation that were not noted in review of the chart prior to signing ED Disposition - Plan for ED Patient: Dispositio n: Home or Assisted Living Chief Complaint: Abd Pain Diagnosis: Right upper quadrant abdominal pain of unknown etiology Instructions: ED Abdominal Pain Unkn Cause Prescriptions: Hydrocodone Bitart/Apap 5-325 [Goree 5MG-325MG] 1 tab PO Q6H PRN PRN 3 Days #10 tab PRN Reason: Pain Omeprazole [Prilosec] 20 mg PO DAILY #30 cap Referrals: Lorena Talbot MD [Primary Care Provider] - What to do if you have Problems For any increased pain, shortness of breath, bleeding, nausea or vomiting, chest pain, or any unexpected problems, contact your Primary Care Provider. Call [facility] ([phone]) or report to the closest Emergency Room. Call 911 if necessary. 11/30/17 0937 <Electronically signed by Eliezer Ojeda DO> Date Eliezer sanchez DO Cosigner Signature (If Indicated): Date CC: Lorena Talbot MD 30-Nov-2017 Emergency Department Summary Result: Comments: See Note; NOTES: [facility] Medical Records Department [address] [place] [address] Emergency Department Summary 11/30/17 0417 MR#: [id number] Acct: [id number] Name: SYLVIA RAMIREZ Rep #: [id number] : 1955 62 From: Bladimir Parikh MD PCP: Lorena Talbot MD Status: REG ER ADDENDUM by Eliezer Ojeda DO on 11/30/17 at 0934 Care of the patient was turned over to ri a t 7 AM. Right upper quadrant ultrasound was obtained and was normal. Patient was given a prescription for Prilosec and a short course of Goree. Patient was instructed to follow-up with her primary care physician in 3-5 days. Patient understood and was agreeable with the plan. All questions were answered. Date Eliezer Ojeda DO cc: Lorena Talbot MD * Signed - ER Visit Summary Date of Service: 11/30/17 Chief Complaint: Patient arrives with colicky right upper quadrant abdominal pain radiating through to her back. History of Present Illness: The patient is a 62 F who presents because of colicky right upper quadrant pain for the past several hours associated with nausea and vomiting. Pain was made worse after eating chips. She does give history of intermittent pain with greasy/rich food. [place] and [place] was [place]. She denies any leg pain or discoloration. She denies shortness of breath, chest pain of any type including pleuritic. She denies cough. She denies fever, chills or night sweats. She denies any ocular, auditory or visual symptoms. She denies trauma. She denies skin lesions. She denies dysuria, frequency, ur gency or hematuria. She apparently did not feel well prior to vomiting. Physical Examination: Vital signs are marked for slight elevation in blood pressure. HEENT exam is marked for dry mucosa. Heart i s regular without murmur, gallop or rub. S1 and S2 are normal. Lungs are clear to auscultation with good movement of air bilaterally. Abdomen is soft with tenderness in the right upper quadrant and the clinical Wan sign. Bowel sounds are slightly diminished. There is no tympana. There is no rebound tenderness. There is no CVA tenderness noted. There are no skin lesions and specifically lesions to s uggest herpes varicella-zoster. Lower extremity exam is remarkable for bilateral pedal edema. Neuro exam is nonfocal. Test Results: CBC is 3.5 with 88 segs. Electro panels unremarkable. Hepatic is michelle rkable for total bilirubin of 1.1. 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 This may explain her neutropenia. Emergency Department Course and Hebert atment: IV was established she was medicated with 4 mg of Zofran and 4 mg of morphine. She had a 50% reduction in her pain. She states the pain is presently a 5. Appropriate blood work was obtained to e valuate for biliary disease and to determine if an emergent ultrasound was indicated versus waiting to the morning or outpatient. Treatment Plan: Patient was informed of her results. She was given opti on of staying until the international accounting manager presents in the morning for ultrasound or make arrangements for outpatient. She elected to stay in the department. At 0700 I was informed that patient requested more pain medicine. An additional 4 mg of morphine was ordered. Disposition: Pending ultrasound of the right upper quadrant. Patient was turned over Dr. Eliezer Sethi to make disposition. Impression: Acut e right upper quadrant pain with nausea and vomiting This note was generated with [employer] dictation software. It may contain incorrect words, spelling, and punctuation that were not noted in review of the chart prior to signing ED Disposition - Plan for ED Patient: Chief Complaint: Abd Pain Referrals: Lorena Talbot MD [Primary Care Provider] - What to do if you have Problems For any increased pain, shortness of breath, bleeding, nausea or vomiting, chest pain, or any unexpected problems, contact your Primary Care Provider. Call [facility] ([phone]) or report to the closest Emerge ncy Room. Call 911 if necessary. 11/30/17 0702 <Electronically signed by Bladimir Parikh MD> Date Bladimir Parikh MD Cosigner Signature (If Ind icated): Date CC: Lorena Talbot MD 30-Nov-2017 Emergency Department Summary Result: Comments: See Note; NOTES: [facility] Medical Records Department [address] [place] [address] Emergency Department Summary 11/30/17 0417 MR#: [id number] Acct: [id number] Name: SYLVIA RAMIREZ Rep #: [id number] : 1955 62 From: Bladimir Parikh MD PCP: Lorena Talbot MD Status: REG ER - ER Visit Summary Date of Service: 11/30/17 Chief Complaint: Patient arrives with colicky right upper quadrant abdominal pain radiating through to her back. History of Present Illness: The patient is a 62 F who presents because of colicky right upper quadrant pain for the past several hours associated with nausea and vomiting. Pain was made worse after eating chips. She does give history of intermittent pain with greasy/rich food. [place] and [place]. She den ies any leg pain or discoloration. She denies shortness of breath, chest pain of any type including pleuritic. She denies cough. She denies fever, chills or night sweats. She denies any ocular, casket liner y or visual symptoms. She denies trauma. She denies skin lesions. She denies dysuria, frequency, urgency or hematuria. She apparently did not feel well prior to vomiting. Physical Examination: Vital si gns are marked for slight elevation in blood pressure. HEENT exam is marked for dry mucosa. Heart is regular without murmur, gallop or rub. S1 and S2 are normal. Lungs are clear to auscultation with goo d movement of air bilaterally. Abdomen is soft with tenderness in the right upper quadrant and the clinical Wan sign. Bowel sounds are slightly diminished. There is no tympana. There is no rebound te nderness. There is no CVA tenderness noted. There are no skin lesions and specifically lesions to suggest herpes varicella-zoster. Lower extremity exam is remarkable for bilateral pedal edema. Neuro exa m is nonfocal. Test Results: CBC is 3.5 with 88 segs. Electro panels unremarkable. Hepatic is remarkable for total bilirubin of 1.1. 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 This may explain her neutropenia. Emergency Department Course and Treatment: IV was established she was medicated with 4 mg of Zofran and 4 mg of morphine. She had a 50% re duction in her pain. She states the pain is presently a 5. Appropriate blood work was obtained to evaluate for biliary disease and to determine if an emergent ultrasound was indicated versus waiting to the morning or outpatient. Treatment Plan: Patient was informed of her results. She was given option of staying until the international accounting manager presents in the morning for ultrasound or make arrangements for out patient. She elected to stay in the department. At 0700 I was informed that patient requested more pain medicine. An additional 4 mg of morphine was ordered. Disposition: Pending ultrasound of the rig ht upper quadrant. Patient was turned over Dr. Eliezer Sethi to make disposition. Impression: Acute right upper quadrant pain with nausea and vomiting This note was generated with [employer] s oftware. It may contain incorrect words, spelling, and punctuation that were not noted in review of the chart prior to signing ED Disposition - Plan for ED Patient: Chief Complaint: Abd Pain Referral s: Lorena Talbot MD [Primary Care Provider] - What to do if you have Problems For any increased pain, shortness of breath, bleeding, nausea or vomiting, chest pain, or any unexpected problems, conta ct your Primary Care Provider. Call [facility] ([phone]) or report to the closest Emergency Room. Call 911 if necessary. 11/30/17 0702 <Electronically signed by Bladimir Parikh MD&#62 ; Date Bladimir Parikh MD Cosigner Signature (If Indicated): Date CC: Lorena Talbot MD 30-Nov-2017 Gallbladder Result: Comments: See Note; NOTES: [facility] Imaging Services [address] [place] [address] Gallbladder MR#: [id number] Acct: [id number] Name: SYLVIA RAMIREZ Rep #: [id number] : 1 05/18/1954 F 62 From: Joseph Tony DO PCP: Lorena Talobt MD Status: REG ER Study: Gallbladder Date of Exam: 11/30/17 Exam# [id number] Ordering Dr: Bladimir Parikh MD STUDY: ABDOMINAL ULTRASOUND - RIGHT UP PER QUADRANT REASON FOR VISIT: Female, 62 years old. Right upper quadrant pain, nausea and vomiting TECHNIQUE: Ultrasound evaluation of the right upper quadrant was performed with real-time and static coe-scale imaging. TECHNICAL QUALITY: Adequate. COMPARISON: None. FINDINGS: Liver: The liver measures 16.2 cm. There is normal echogenicity of the liver. The bi le ducts are within normal limits. There is hepatic color flow. The direction of portal flow is hepatopetal. There is no demonstrated mass lesion. Gallbladder: Normal distended gallbladder. The gallbla dder wall measures 3 mm. There is a negative sonographic Wan's sign. There is no pericholecystic fluid. There are no gallstones. Common Bile Duct (C.B.D.): The common bile duct measures 3.2 mm. [place] creas: Normal size of the head, body and tail of the pancreas. There is normal echogenicity of the pancreas. There is no demonstrated pancreatic mass or cyst. Right Kidney: Normal size of the right kid hoang. The right kidney measures 11.4 x 6.3 x 5.5 cm. Normal renal cortex. The right cortex measures 1.9 cm. There is no demonstrated renal mass or cyst. There is no right hydronephrosis. US/Gallbladder IMPRESSION: Normal right upper quadrant ultrasound examination. Electronically Signed: Joseph Tony DO at 8:59 EDT Tel , Service support , CC: Lorena Talbot MD; Bladimir Parikh MD Hydroelectric Plant Mechanical Engineer: Signed 16-Mar-2017 SCREENING MAMM (CAD), BILAT Result: Comments: See Note; NOTES: [facility] Imaging Services [address] [place] [address] SCREENING MAMM (CAD), BILAT MR#: [id number] Acct: [id number] Name: SYLVIA RAMIREZ Rep #: [id number] : 1955 F 61 From: Tobin Sawant MD PCP: Lorena Talbot MD Status: REG CLI Study: SCREENING MAMM (CAD), BILAT Date of Exam: 03/16/17 Exam# [id number] Ordering Dr: Yomi Pérez AMMOGRAPHY - BILATERAL SCREENING REASON FOR EXAM: Female, 61 years old. Routine annual screening examination. PERTINENT HISTORY: Personal history of breast cancer. Prior left lumpectomy with radiation therapy. Sr. with breast cancer. Mother with breast cancer. Grandmother with breast cancer. Prior bilateral breast reduction. TECHNIQUE: Digital bilateral breast shanice (3D mammographic acquisition) in the CC and MLO projections. 2-D mediolateral oblique (MLO) and craniocaudad (CC) views of both breasts were obtained. CAD: Full Field Digital Mammography with Computer Added Detection was performed. CO MPARISON: Comparison is made with prior examination dated March 10, 2016 and March 08, 2015. FINDINGS: Breast Composition: The breasts are heterogeneously dens e, which may obscure small masses. There are no dominant masses or suspicious calcifications. Stable focal area of architectural distortion and tissue clip marker placement seen in the deep slightly la teral aspect of the left breast. This is in keeping with prior lumpectomy and stereotactic biopsy. There is evidence of postoperative scarring. The skin overlying the left breast is thickened. No other significant abnormalities are identified. There has been no significant change since the prior study. HPBI/SCREENING MAMM (CAD), BILAT IMPRESSIO N: Stable bilateral screening mammogram. Yearly follow-up mammogram recommended. (A) ASSESSMENT CATEGORY: BIRADS Category 2: Benign. A letter regarding these result s will be sent to the patient by the facility within 30 days. Approximately 10% of breast cancers are not detected by mammography. A normal mammogram should not delay biopsy of a clinically suspicious abnormality. [id number] Electronically Signed: Tobin Sawant MD at 10:39 EST Tel [phone], Service support , CC: Lorena Talbot MD; Yomi Pérez DO Hydroelectric Plant Mechanical Engineer: Signed 02-Jul-2016 Chest PA and Lateral Result: Comments: See Note; NOTES: [facility] Imaging Services [address] [place] [address] Verdana 4d Chest PA and Lateral MR#: [id number] Acct: [id number] Name: SYLVIA RAMIREZ Rep #: [id number] : 1955 F 61 From: Yecenia Khan MD PCP: Lorena Talbot MD Status: REG CLI Study: Chest PA and Lateral Date of Exam: 07/02/16 Exam# [id number] Ordering Dr: Lorena Talbot MD STUDY: X-RAY CHEST REASON FOR EXAM: Female, 61 years old. Acute bronchitis TECHNIQUE: 2 views COMPARISON: None. FINDINGS: The lung alston remain generally well expande d. Persistent bibasilar chronic changes appearing somewhat increased above the right costophrenic angle and in the retrocardiac left lung base. Mid and upper lung zones remain unchanged. Normal size he art. Normal mediastinum and kaz. Normal visualized pulmonary arteries. There is atherosclerotic calcification of the aortic arch with tortuosity. There are diffuse degenerative changes of the visualiz ed thoracic spine. Normal visualized ribs, clavicles, and shoulders. Surgical dipika associated with the soft tissues of the left breast and left axilla. RAD/Chest PA and Lateral IMPRESSION: Bilateral chronic lung changes most severe at the lung bases with a mild increase in airspace disease at the right lung base and in the retrocardiac area of the left lung base. Potential new atelectasis/infiltrate on pre-existing changes. Negative for pleural effusion. Electronically Signed: Yecenia Khan MD at 15:38 EST , Service support [phone], CC: Lorena Talbot MD Hydroelectric Plant Mechanical Engineer: Signed 10-Apr-2016 Vascular Test/LEAS/UEAS Result: Comments: See Note; NOTES: [facility] Cardiovascular Services [address] [place] [address] Verdana 4d Lower Ext Art Exam w/o Exercis MR#: [id number] Acct: [id number] Name: SYLVIA GUADARRAMA Rep #: [id number] : 1955 61 From: Jim Martin MD Primary Care: Lorena Talbot MD Status: REG CLI Ordering Dr: Lorena Talbot MD Sex: F C DATE OF SERVICE: 04/08/2016 NONINVASIVE LOWER EXTREMITY ARTERIAL STUDY: DATE OF STUDY: 04/08/2016. This is a 61-year-old female with a suspicion of atherosclerotic peripheral arterial occlusive disease. Suspecting the presence of such david rial occlusive disease, the patient was brought to the Noninvasive Vascular Laboratory at this time for the purpose of bilateral noninvasive lower extremity arterial assessment. Doppler signal assessme nt was used to evaluate the pulses at ankle level bilaterally. The posterior tibial and dorsalis pedis pulses were triphasic bilaterally. Segmental limb pressures were obtained at ankle level bilateral ly. The right ankle pressure, as determined by posterior tibial pulse, was measured at 118 mmHg. The right ankle pressure, as determined by dorsalis pedis pulse, was measured at 125 mmHg. The left ankle pressure, as determined by posterior tibial pulse, was measured at 126 mmHg. The left ankle pressure, as determined by dorsalis pedis pulse, was measured at 116 mmHg. Pulse-volume recordings were obta ined bilaterally and segmentally. Waveform amplitudes appeared to be satisfactory at all levels bilaterally, including low thigh, calf, ankle, and digital levels. Resting ankle-brachial indices were ca lculated bilaterally. The resting right ankle-brachial index was calculated to be 1.04. The resting left ankle-brachial index was calculated to be 1.05. IMPRESSION: Based upon the findings of this rest ing noninvasive lower extremity arterial study, there is no evidence of significant atherosclerotic peripheral arterial occlusive disease in the lower extremities bilaterally. Triphasic waveforms were n oted at ankle level bilaterally. Resting ankle-brachial indices were bilaterally normal. In summary, this represents a normal resting noninvasive lower extremity arterial study bilaterally. Jim Vidal MD T: NTS JOB: [id number] 04/10/16 1306 <Electronically signed by Jim Martin MD> Date Jim Martin MD CC: Lorena Talbot MD Date Dictated: 04/08/161722 Date Transcribed: 04/08/161722 Hydroelectric Plant Mechanical Engineer: Signed 10-Mar-2016 Bilat Scrn Digital AND CAD Result: Comments: See Note; NOTES: [facility] Imaging Services [address] [place] [address] Verdana 4d Bilat Scrn Digital AND CAD MR#: [id number] Acct: [id number] Name: SYLVIA RAMIREZ Rep #: [id number] : 1955 F 60 From: Tobin Sawant MD PCP: Lorena Talbot MD Status: REG CLI Study: Bilat Scrn Digital AND CAD Date of Exam: 03/10/16 Exam# [id number] Ordering Dr: Jose Pérez ul DO MAMMOGRAPHY - BILATERAL SCREENING REASON FOR EXAM: Female, 60 years old. Routine annual screening examination. PERTINENT HISTORY: Personal history of breast cancer. Sister with breast cancer, mother with breast cancer, grandmother and aunt with breast cancer. The patient is status post left lumpectomy with radiation treatment. TECHNIQUE: Digital bilateral breast shanice (3D mammographic acquis ition) in the CC and MLO projections. 2-D mediolateral oblique (MLO) and craniocaudad (CC) views of both breasts were obtained. CAD: Full Field Digital Mammography with Computer Added Detection was perf ormed. COMPARISON: Comparison is made with prior study dated February 21, 2014 and March 08, 2015. FINDINGS: Breast Composition: The breasts are heterogeneously d ense, which may obscure small masses. There are no dominant masses or suspicious calcifications. Focal area of architectural distortion and tissue clip marker is seen in the deep slightly lateral aspec t of the left breast in comparison with prior stereotactic biopsy and lumpectomy. There is evidence of overlying skin thickening in keeping with postoperative change. No other significant abnormalities are identified. There has been no significant change since the prior study. HPBI/Bilat Scrn Digital AND CAD IMPRESSION: Stable bilateral screeni ng mammogram. Yearly follow-up mammogram recommended. (A) ASSESSMENT CATEGORY: BIRADS Category 2: Benign. A [facility] regarding these results [facility] the facility within 30 days. Approximately 10% of breast cancers are not detected by mammography. A normal mammogram should not delay biopsy of a clinically suspicious abnormality. [id number] Elect ronically Signed: Tobin Sawant MD at 11:03 EST Tel [phone], Service support [phone], CC: Lorena Talbot MD; Yomi Pérez DO Hydroelectric Plant Mechanical Engineer: Signed 10-Mar-2016 Dexa Bone Density Study (HP) Result: Comments: See Note; NOTES: [facility] Imaging Services [address] [place] [address] Verdana 4d Dexa Bone Density Study () MR#: [id number] Acct: [id number] Name: MARCELA RAMIREZ Rep #: [id number] : 1955 F 60 From: Tobin Sawant MD PCP: Lorena Talbot MD Status: REG CLI Study: Dexa Bone Density Study () Date of Exam: 03/10/16 Exam# [id number] Ordering Dr: KODY NESBITT STUDY: DUAL ENERGY X-RAY ABSORPTIOMETRY / DXA REASON FOR EXAM: Female, 60 years old. The patient is postmenopausal. Prednisone use. TECHNIQUE: Bone Mineral Density (BMD) measurements of lum bar spine and bilateral hips were obtained. COMPARISON: Comparison is made with prior study dated February 21, 2014. FINDINGS: Lumbar Spine (L1-L4): g/cm2 (1.136) / T-score (-0.3) / Z-score (1.0) Findings are suggestive of normal bone density with a low fracture risk. Left Femur Total: g/cm2 (0.772) / T-score (-1.9) / Z-score (-0.9) Left Femoral Neck: g/cm2 (0.69 1) / T-score (-2.5) / Z-score (-1.2) Right Femur Total: g/cm2 (0.785) / T-score (-1.8) / Z-score (-0.8) Right Femoral Neck: g/cm2 (0.709) / T-score (-2.4) / Z- score (-1.1) The T-Scores on the most rece nt prior examination were: Lumbar Spine (L1-L4): There has been worsening of bone density since the previous examination. Left Femur Total: which represents a worsening of 8.1%. Right Femur Total: whi ch represents a worsening of 5.4%. HPBD/Dexa Bone Density Study (HP) IMPRESSION: The patient is considered osteopenic as outlined below according to World Jose Organization (WHO) criteria with a moderate fracture risk. There has been worsening of bone density since the previous examination. Reference Inform ation: The T-score is the number of standard deviations above or below the standard which is normal for young adults at their peak bone mineral density. The World Health Organization (WHO) interprets th e T-scores as follows: Above -1 Normal bone density Between -1 and -2.5 Osteopenia Equal to / or below -2.5 Osteoporosis As a practical clinical guideline, osteopenia may be graded as follows: Mild -1 through -1.5 Moderate -1.6 through -2.0 Severe -2.1 through -2.4 The Z-score is the number of standard deviations above or below age-matched controls. A Z- score of less than -1.5 would be considered a bnormal. References: 1. NIH Osteoporosis and Related Bone Diseases http://www.osteo.org 2. International Society for Clinical Densitometry http://www.iscd.org 3. National Osteoporosis Foundation http:/ /www.nof.org Electronically Signed: Tobin Sawant MD at 10:18 EST Tel [phone], Service support [phone], CC: Lorena Talbot MD; KODY NESBITT Hydroelectric Plant Mechanical Engineer: Signed 07-Jul-2015 History and Physical Exam Result: Comments: See Note; NOTES: [facility] Medical Records Department [address] [place] [address] History and Physical 07/07/15 1809 MR#: [id number] Acct: [id number] Name: SYLVIA RAMIREZ Rep #: [id number] : 1955 60 From: Lucy Figueroa MD PCP: Lorena Talbot MD Status: REG ER Y Location: ED Problem List (1) Cellulitis of left upper extremity Stat us: Acute (2) Antisynthetase syndrome Status: Chronic (3) History of breast cancer Status: Chronic (4) Mild interstitial lung disease Status: Chronic History of Present Illness Date of Admi ssion: 07/07/15 Chief Complaint: Left upper extremity soreness, swelling and redness. The patient is a 60 year old F with past medical history as mentioned above presented to the emergency room [facility] of left upper extremity soreness, pain, erythema and swelling. Her symptoms started 2 days ago with redness in the middle of her left arm associated with mild pain and soreness as well as swelling. Yesterday, the redness and soreness start to extend up to her left upper arm and down to her left hand. She continued to have significant dull aching pain, mild pain, 3-4 out of 10 in severity in the left upper extremity with worsening erythema and swelling. She had a small dry wound on the dorsal aspect of the left hand, no drainage. She denied fever or chills. She had a history of anti-synthetas e syndrome and she is on immunosuppressive drugs including prednisone and azathioprine. In the emergency room, her vital signs were stable, afebrile, not tachycardic. Routine blood work is unremarkabl e. She is being admitted for left upper extremity cellulitis. Past Medical History Past Medical History (Chronic Problems): Chronic Problems Antisynthetase syndrome (Chronic) History of breast c ancer (Chronic) Mild interstitial lung disease (Chronic) Allergies No Known Allergies Allergy (Verified 07/07/15 16:18) Home Medications: Ambulatory Orders Medication Instructions Recorde d Azathioprine 200 mg PO DAILY 04/04/15 PredniSONE 15 mg PO DAILY 04/04/15 Acetaminophen [Tylenol Extra 500 mg PO Q6H PRN PRN 07/07/15 Strength] Cholecalciferol (VIT D3) [Vitamin 2,000 unit PO DAILY 07/07/15 D] Rotan-3 Fatty Acids/Fish Oil 2 each PO DAILY 07/07/15 [Rotan 3 1,000 mg Softgel] Turmeric [Turmeric Root] gm MC DAILY 07/07/15 Surgical History: hysterectomy, - - Carpal tu nnel surgery. Lumpectomy for breast cancer Psychiatric History: No pertinent psych hx Smoking Status: Former smoker Alcohol: Rare Drugs: None - *Family History Maternal History Items: No per tinent history Paternal History Items: No pertinent history Review of Systems Constitutional: Denies: Anorexia, Chills, Fever, Weakness Eyes: Denies: Blurred vision, Double vision, Drainage, Redness HEENT: Denies: Difficulty Hearing, Ear Pain, Eye Pain, Nasal Congestion, Sore Throat Cardiovascular: Denies: Chest Pain, Chest Pressure, Chest Tightness, Edema, Heaviness, Palpitations, Parox ysmal Noc. Dyspnea, Syncope Respiratory: Denies: Cough, Hemoptysis, Shortness of Breath, Sputum production, Wheezing Gastrointestinal: Denies: Abdominal Pain, Constipation, Diarrhea, Nausea, Vomiting Genitourinary: Denies: Dysuria, Frequency, Hematuria Musculoskeletal: Reports: Arm Pain. Denies: Back Pain, Foot Pain, Joint Tenderness, Leg Pain Neurological: Denies: Balance problems, Blurred visio n, Double vision, Change in Speech, Slurred speech, Headaches, Incoordination, Numbness Psychiatric: Denies: Anxiety, Depression Endocrine: Denies: Change in Body Habitus, Polydipsia VTE Informatio n - Inpt Only VTE Present on Admission: No VTE Mechan Device Prophylaxis: None VTE Pharm Prophylaxis ordered?: Yes - Physical Exam General: Alert, Oriented x3, Cooperative, No apparent distress H EENT: Atraumatic, PERRLA, EOMI Oral: Moist Mucosa, No Gingival or Mucosal Lesions/ Ulcerations Neck: Supple, No JVD, Negative Carotid Bruits, Thyroid Normal Size and Texture Lungs: Clear to auscultat ion, No rhonchi, No wheeze, No rales, Diminished Cardiovascular: Regular rate, Regular Rhythm, Normal S1, Normal S2 Abdomen: Bowel Sounds Present, Soft, Non Tender, Non-Distended, No Hepato-splenomega ly Extremities: No clubbing, No cyanosis, No edema Skin: No rashes, No breakdown Musculoskeletal: - - Left upper extremity: Erythema and swelling on the palmar aspect of the left hand, left forearm extending up to left upper arm, no lymphadenopathy. No open wounds or drainage. Neurological: Cranial nerves II-XII grossly intact, Motor Exam 5/5 strength throughout Psych/Mental Status: Normal Affe ct, Appropriate Vital Signs Temp Pulse Resp BP Pulse Ox 99.0 F 84 18 120/83 98 07/07/15 16:21 07/07/15 16:21 07/07/15 16:21 07/07/15 16:21 07/07/15 16:21 Oxygen Delivery Method Room Air Nacho ght: 151 lb 0.266 oz Body Mass Index (BMI) 26.3 Laboratory Tests Past 24 Hrs 07/07/15 16:46 WBC 5.1 RBC 3.85 L Hgb 12.9 Hct 39.7 MCV 103.1 H MCH 33.5 H MCHC 32.5 RDW 16.1 H RDW Differential 60.9 H Plt Count 225 MPV 10.0 Immature Gran % (Auto) 0.200 Neut % (Auto) 92.3 H Lymph % (Auto) 4.1 L [place] % (Auto) 2.2 Eos % (Auto) 1.0 Baso % (Auto) 0.2 Absolute Neuts ( auto) 4.7 Absolute Lymphs (auto) 0.21 L Total Counted Not Reportable Differential Comment SCANNED Platelet Estimate ADEQUATE Anisocytosis 1+ Sodium 138 Potassium 4.2 Chloride 108 H Car bon Dioxide 27.0 Anion Gap 3 L BUN 10 Creatinine 0.69 Estim Creat Clear Calc 71.72 Est GFR (MDRD) Af Amer 112 Est GFR (MDRD) Non-Af 93 BUN/Creatinine Ratio 14.6 Glucose 111 H Calcium 8 .8 Assessment/Plan Active and Suspected Problems Cellulitis of left upper extremity (Acute) This is a 60 years old female patient admitted because of left upper extremity swelling, erythema a nd soreness and she was found to have left upper extremity cellulitis and she is immune, mild patient because she is on prednisone and azathioprine for anti- synthetase syndrome. #1 left upper extrem ity cellulitis: No evidence of sepsis or septic shock. This patient is immunecomprised because she is on prednisone and azathioprine. Plan: Admit to MedSurg floor, IV fluids for hydration, blood cultur e already done in the ER, start IV clindamycin every 8 hours, Tylenol when necessary for pain and fever, repeat CBC and BMP tomorrow morning. #2 anti-synthetase syndrome: Continue prednisone and azath ioprine. #3 mild interstitial lung disease: Clinically stable, maintaining her O2 saturation at 98% on room air. Chest is clear to auscultation. #4 history of breast cancer: Status post lumpectomy and radiation therapy. In remission, no acute issues. #5 DVT prophylaxis: Subcu Lovenox. This note was generated with Dragon dictation software. It may contain incorrect words, spelling, and punct uation that were not noted in checking the note before signing. 07/07/158 <Electronically signed by Lucy Figueroa MD> Date Lucy Figueroa MD Cosigner Signature (if applicable): Date CC: Lorena Talbot MD; Lucy Figueroa Signed 18-Apr-2015 Operative Report Result: Comments: See Note; NOTES: [facility] Medical Records Department [address] [place] [address] Operative Report MR#: [id number] Acct: [id number] Name: KIRSTEN RAMIREZ Rep #: [id number] : 1955 60 From: Galileo Quinones DPM PCP: Lorena Talbot MD Status: [facility] DATE OF SERVICE: DATE OF SURGERY: April 12, 2015. PROCEDURE: Excision of right 3rd in termetatarsal space neuroma. PREOPERATIVE DIAGNOSIS: Third intermetatarsal space neuroma, right foot. POSTOPERATIVE DIAGNOSIS: Third intermetatarsal space neuroma, right foot. SURGEON: Galileo Quinones D.P.M. ASSISTANTS: Rufino Haney D.P.M. ANESTHESIA: MAC anesthesia with local anesthesia. HEMOSTASIS: Right ankle pneumatic tourniquet set at 250 mmHg for a total of 32 minutes. MATE RIALS: 3-0 Vicryl, 4-0 Monocryl. INJECTABLES: 15 mL of 0.5 percent bupivacaine plain as well as 11 mL of 1 percent lidocaine plain given as a regional infiltrative nerve block around the 3rd interme tatarsal space on the right foot. 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 COMPLICATIONS: None. INDICATIONS: This is a 60-year-old female who has had chronic pain to the right foot despite extensive conservative management. She has tried changes in shoe gear, orthotics, corticosteroid injections, immobilization, anti- inflammatories, activity modifications; lenin nielsen, still has pain chronic pian to the right 3rd intermetatarsal space. 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 The surgical options were discussed with her and she wanted to proceed forward with excision of the 3rd intermetatarsal space neuroma on the right foot. All the risks and potential complications versus the possible benefits were discussed with her in great detail. All alternative options were reviewed with her as well. She expressed understanding and agreement and want ed to proceed forward with surgical intervention as noted above. The consent form was reviewed with her and she freely signed it. OPERATIVE PROCEDURE: The patient was brought back into the operating room and was placed on to the operating table in supine position. A safety belt was placed around her waist to carefully secure her to the operating room table. A timeout was performed and the patien t was properly identified and surgical plan was confirmed. The patient received 2 g of intravenous Ancef for antibiotic prophylaxis for this procedure. The patient received MAC anesthesia per the anes thesiologist and then a total of 10 mL of 0.5 percent bupivacaine plain was given as a regional infiltrative nerve block around the 3rd intermetatarsal space of the right foot, after the overlying skin was cleansed with 70 percent isopropyl alcohol, this was given in sterile fashion. A well- padded pneumatic tourniquet was applied around the right ankle. The right foot was scrubbed, prepped, and dr aped in the usual aseptic fashion. The right foot was elevated for a total of 3 minutes and the right ankle pneumatic tourniquet was inflated to 250 mmHg. Using #15 scalpel blade, a linear longitudin al skin incision was made on the dorsal aspect of the 3rd intermetatarsal space. Careful blunt dissection was completed down to the deep transverse intermetatarsal ligament. This was carefully release d. There was noted to be a large intermetatarsal space neuroma present in the 3rd intermetatarsal space. It was hypertrophic, yellow and degenerative with perineural fibrosis. This neuroma was carefu lly dissected out proximally and the branches were carefully dissected out distally. The neuroma was carefully excised. The proximal nerve stump was buried into the muscles of the plantar foot. At this time, all of the remaining tissues in the area appeared to be healthy, viable and stable at this time. All vital structures including all vital neurovascular structures to the area were identified, p rotected and retracted as necessary. The site was flushed with copious amounts of normal saline solution. The subcutaneous tissue layer was carefully reapproximated using 3-0 Vicryl and the skin was c arefully reapproximated using 4-0 Monocryl. Cavilon was gently painted along the skin edges, and Steri-Strips were applied across the sutured skin incision. A total of 6 mL of 1 percent lidocaine plai n had to be injected intraoperatively for further local anesthesia. At the end of operative procedure, an additional 5 mL of 0.5 percent lidocaine plain and 5 mL of 0.5 percent bupivacaine plain were given as the further infiltrative nerve block to the 3rd intermetatarsal space of the right foot. A dressing was applied which consisted of Betadine-soaked adaptic, 4 x 4 gauze, Kerlix and an Rajeev ban dage. The right ankle pneumatic tourniquet was deflated and there was immediate return of warmth and perfusion to the right foot and to all 5 toes of the right foot. Capillary refill time was within no rmal limits, it was less than 2 seconds. The patient was transported from the operating room to recovery room with vital signs stable and in good condition. Postoperative orders were placed. Postopera tive instructions were dispensed both verbal and written. She will follow up with me in 1 week or sooner if needed. Galileo Quinones DPM T: KRISHAN JOB: [id number] 04/18/15 0757 <Electronic ally signed by Galileo Quinones DPM> Date Galileo Quinones DPM Cosigner Signature (If Indicated): Date CC: Lorena Talbot MD; Galileo Quinones DPM Date Dictated: 04/12/151647 Date Transcribed: 04/12/151647 Hydroelectric Plant Mechanical Engineer: Signed 12-Apr-2015 Discharge Instruction Result: Comments: See Note; NOTES: [facility] Medical Records Department [address] [place] [address] Instructions for Home/Discharge Instructions 04/12/15 1639 MR#: [id number] Acct: [id number] Name: SYLVIA RAMIREZ Rep #: [id number] : 1955 60 From: Galileo Quinones DPM PCP: Lorena Talbot MD Status: REG SDC Discharge Diet: Light diet - advance as tolerated D ischarge Activity: May Not Drive Weight Bearing Status: Partial weight bearing - Heel weightbearing right foot, - Keep extremity elevated above heart level: Right Leg - Keep right foot elevated Call your doctor if your incision/area has: Increased Pain/ Swelling Call your doctor if you observe: Fever of 101 or Higher, Coldness, Increased Pain, Shortness of breath, Chest pain, Increased palpitation s (irregular heartbeat), Calf discomfort, Uncontrolled pain Cleanse incision/area with: Do not get Incision Wet, Keep Dressing Clean AND Dry Allergies/Adverse Reactions: Allergies No Known Allergie s Allergy (Verified 04/04/15 15:10) Medications to take at Discharge Azathioprine 200 mg PO DAILY 04/04/15 PredniSONE 5 mg PO DAILY 04/04/15 Please Follow Up With: Galileo Quinones When: 1 wee k or sooner if needed 04/12/151640 <Electronically signed by Galileo Quinones DPM> Date Galileo Quinones DPM CC: Lorena Talbot MD 04-Apr-2015 Chest PA and Lateral Result: Comments: See Note; NOTES: [facility] Imaging Services [address] [place] [address] Verdana 4d Chest PA and Lateral MR#: [id number] Acct: [id number] Name: SYLVIA RAMIREZ Rep #: [id number] : 1955 F 60 From: Jose Fagan MD PCP: Lorena Talbot MD Status: PRE [facility] Study: Chest PA and Lateral Date of Exam: 04/04/15 Exam# [id number] Ordering Dr: Virgen Quinones DPM STUDY: X-RAY CHEST REASON FOR EXAM: Female, 60 years old. Preop TECHNIQUE: PA and lateral views of the chest. COMPARISON: None. FINDINGS: Th e lungs are clear and expanded. There is no demonstrated pleural abnormality. Normal size heart. Normal mediastinum and kaz. Normal visualized pulmonary arteries. Normal visualized aortic arch and descending thoracic aorta. Normal visualized thoracic spine. Normal visualized ribs, clavicles, and shoulders. There are surgical clips in the left axilla. There is no demonstrated abnormality of the visualized soft tissue structures of the upper abdomen. IMPRESSION: No signs of acute cardiopulmonary disease Electronically Signed: Jose Fagan MD , FACR at 13:58 EST , Service support [phone], RAD/Chest PA and Lateral IMPRESSION: No signs of acute cardiopulmonary disease Electronically Signed: Jose Fagan MD, FACR at 13:58 EST , Service support [phone], CC: Lorena Talbot MD; Galileo Quinones DPM Hydroelectric Plant Mechanical Engineer: Signed 29-Mar-2015 EKG ([id number]) Comments: nsr no acute chg poor R wave progression Result: [MEASUREMENTS ANALYSIS] Date of Test: 03/29/2015 13:38:32; Heart Rate: 73; WV Interval: 180; QRS: 88; QT Interval: 380; Corrected QT Interval (QTc): 402; P Wave [place]: 33; QRS Wave [place]: 30; T Wave [place]: 29; Blood Pressure: 120/78 [ECG DIAGNOSTIC STATEMENTS] Date of Test: 03/29/2015 13:38:32; Summary: Sinus Rhythm WITHIN NORMAL LIMITS -Mar-2015 Inital Evaluation - PT Result: Comments: See Note; NOTES: [facility] Physical Therapy [facility] [address] [place] [address] Fax REHABILITATION SE RVICES INITIAL EVALUATION MR#: [id number] Acct: [id number] Name: SYLVIA RAMIREZ Rep #: [id number] : 1955 60 From: Gurdeep Carson Referring Dr.: Galileo Quinones DPM Status: REG RCR Ins urance: [facility] Date: Patient's Visit Information SYLVIA RAMIREZ is a 60 year old F, referred to Physical Therapy by Galileo Quinones,, with a diagnosis of R foot pain. Date of Evaluation: 03/28/15 Physical Therapist: Gurdeep Carson - Visit Plan Frequency: 2-3x /Week Duration: 2 Weeks - Subjective Pain since October. 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 Pt reports she has surgery scheduled for 04/12/15 to remove it. Pt reports she is hoping PT will make a difference. Pt reports she will occasionlly get tingling is she walks for a long time. Pt de nies sleep diff secondary to pain. Pt reports she is limited with her ex's here at secondary to pain and limited ROM. Pt reports her goal is to experience relief and not to have surgery. 0/[address], 9/10 at worst - Objective Palpation: Pt is tender with compression to R foot. No obvious deformity. Neuro: B LE sensation is WNL to light touch. MMT: B ankles= 5/5 throughout. ROM: L ankle DF= 9 , R ankle DF=0. 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 For Medicare and Medicare HMO plans, please review the plan of care and approve it. It will ne ed to be FAXED BACK to us at [phone] for Medicare purposes. Please let me know if there are questions or concerns regarding this plan of care. Physician Signature: Date: <Electronically signed by Gurdeep Carson > 03/28/15 1140 CC: Lorena Talbot MD; Galileo Quinones DPM [facility] Jeanne d For Medicare only, by signing this I certify the plan of care. Physicians Signature Date 08-Mar-2015 Unilat Rt Scrn Digital AND CAD Result: Comments: See Note; NOTES: [facility] Imaging Services [address] [place] [address] Verdana 4d Unilat Rt Scrn Digital AND CAD MR#: [id number] Acct: [id number] Na me: SYLVIA RAMIREZ Rep #: [id number] : 1955 F 59 From: Tobin Sawant MD PCP: Lorena Talbot MD Status: REG CLI Study: Unilat Rt Scrn Digital AND CAD Date of Exam: 03/08/15 Exam# [id number] Ordering Dr: Pat Buchanan MAMMOGRAPHY - UNILATERAL SCREENING: RIGHT BREAST REASON FOR EXAM: Female, 59 years old. Routine annual screening examination (unilateral). PERTINENT HISTORY: Personal history of breast cancer. Sister with breast cancer. Mother with breast cancer. Prior bilateral breast reduction. TECHNIQUE: Digital examination. Mediolateral oblique (MLO) and craniocaudad (CC) vie ws of the breast were obtained. CAD: CAD was performed on this study. COMPARISON: Comparison is made with prior study dated February 21, 2014 and February 20, 2013. _ FINDINGS: Breast Composition: The breasts are heterogeneously dense, which may obscure small masses. There are no dominant masses or suspicious calcifications. No other significant abnormaliti es are identified. There has been no significant change since the prior study. IMPRESSION: Stable unilateral screening mammogram. Yearly follow-up recommended. ( A) ASSESSMENT CATEGORY: BIRADS Category 2: Benign. A letter regarding these results will be sent to the patient by the facility within 30 days. Approximately 10% of breast cancers are not detected by mammography. A normal mammogram should not delay biopsy of a clinically suspicious abnormality. [id number] Electronically Signed: Tobin Sawant MD 201 09/03/12 at 11:11 EST Tel [phone], Service support [phone], CC: Pat Buchanan; Lorena Talbot MD Hydroelectric Plant Mechanical Engineer: Signed 04-Mar-2015 Lower Ext/No Jt/w/o Result: Comments: See Note; NOTES: [facility] Imaging Services [address] [place] [address] Verdana 4d Lower Ext/No Jt/w/o MR#: [id number] Acct: [id number] Name: Cirilo RAMIREZ Rep #: [id number] : 1955 F 59 From: Jose Fagan MD PCP: Lorena Talbot MD Status: REG CLI Study: Lower Ext/No Jt/w/o Date of Exam: 03/04/15 Exam# [id number] Ordering Dr: Ward Quinones DPM STUDY: MRI RIGHT FOOT REASON FOR EXAM: Female, 59 years old. Capsulitis,neuroma, pain third toe mainly also 2nd, pain into m.t, no injury TECHNIQUE: Standardized fat and water weighted pulse sequences were obtained in all 3 orthogonal planes. COMPARISON: None. FINDINGS: Normal talonavicular articulation. Normal calcaneocuboid articulation. Normal navicular-cuneiform articulations. Normal intercuneiform articulations. Normal first tarsometatarsal articulation. Normal Lisfranc ligament. Normal second and third tarsometatarsal articulati ons. Normal cuboid fourth and cuboid fifth tarsometatarsal articulation. There are postsurgical changes in the proximal first metatarsal probably related to prior hallux valgus surgery (coronal T2 s eries 9 image 12). Normal second through fifth metatarsals There are degenerative changes of the first MTP joint with joint space narrowing and marginal osteophytes. There are degenerative changes o f the first metatarsal sesamoid joints Normal metatarsal phalangeal joints and interphalangeal joints. There is a nodular lesion in the third interspace measuring approximately 5 mm in transverse diameter (axial T1 series 7 image 21 and 20), consistent with an intermetatarsal neuroma. Normal tibialis anterior tendon. Normal extensor hallucis longus tendon. Normal extensor digitorum longus te ndons. Normal peroneus longus tendon and distal insertion. Normal peroneus brevis tendon and distal insertion. Normal intrinsic muscles of the mid and forefoot region. Normal extensor digitorum brev is muscle. Normal subcutis adipose space. IMPRESSION: Nodular lesion in the third interspace consistent with an intermetatarsal neuroma. Degenerative changes of first MTP joint and first metatarsal sesamoid joints. Post surgical changes in the proximal first metatarsal. Electronically Signed: Jose Fagan MD, FACR at 10:47 EST Tel , Service support [phone], CC: Lorena Talbot MD; Galileo Quinones DPM Hydroelectric Plant Mechanical Engineer: Signed 15-Jan-2015 Breast Limited Unilateral Result: Comments: See Note; NOTES: [facility] Imaging Services [address] [place] [address] Ultrasound Report MR#: [id number] Acct: [id number] Name: SYLVIA RAMIREZ Rep #: [id number] : 1955 F 59 From: Tobin Sawant MD PCP: Lorena Talbot MD Status: REG CLI Study: Breast Limited Unilateral Date of Exam: 01/15/15 Exam# [id number] Ordering Dr: Pat Buchanan STUDY : ULTRASOUND BREAST - LEFT REASON FOR EXAM: Female, 59 years old. History of left lumpectomy and left breast pain. TECHNIQUE: Axial and longitudinal images of the LEFT breast were performed with a high resolution ultrasound transducer. COMPARISON: Comparison is made with prior mammogram dated January 01, 2015 and prior ultrasound dated January 01, 2015. FINDINGS: LEFT Breast: There is a 1.6 cm x 2 cm x 0.8 cm hypoechoic slightly irregular density deep in the left breast at the 3 to 4:00 position of the breast. A biopsy is recommended for further evaluation. IMPRESSION: 1.6 cm x 2 cm x 0.8 cm hypoechoic density deep in the breast adjacent to the chest wall at the 3 to 4:00 position. A biopsy is recommend ed for further evaluation. ASSESSMENT CATEGORY: BIRADS Category 4: Suspicious - Biopsy Should Be Considered. A letter regarding these results will be sent to th e patient by the facility within 30 days. Electronically Signed: Tobin Sawant MD at 13:27 EDT Tel [phone], Service support [phone], CC: Pat Buchanan ; Lorena Talbto MD Hydroelectric Plant Mechanical Engineer: Signed 01-Jan-2015 Breast Limited Unilateral Result: Comments: See Note; NOTES: [facility] Imaging Services [address] [place] [address] Ultrasound Report MR#: [id number] Acct: [id number] Name: SYLVIA RAMIREZ Rep #: [id number] : 1955 F 59 From: Frantz Rojas MD PCP: Lorena Talbot MD Status: REG CLI Study: Breast Limited Unilateral Date of Exam: 01/01/15 Exam# [id number] Ordering Dr: Pat Buchanan STUDY: ULT RASOUND BREAST - LEFT REASON FOR EXAM: Female, 59 years old. Pain left breast TECHNIQUE: Axial and longitudinal images of the LEFT breast were performed with a high resolution ultrasound transducer . COMPARISON: Mammogram from January 01, 2015 FINDINGS: LEFT Breast: There is a lesion in the upper outer quadrant. The lesion measures 1.7x1.6x0.9 cm in si ze. Clock notation: 3:30 o'clock position. Distance from nipple: 5 cm. Posterior Enhancement: No. Posterior Shadowing: Strong. Margins: Indistinct and jagged. Echogenicity: Hypoechoic. Compressio n effect on Shape: No change. IMPRESSION: Scar at the site of previous lumpectomy. There is no evidence of suspicious mass. There is no evidence of abscess or he matoma. ASSESSMENT CATEGORY: BIRADS Category 2: Benign. A letter regarding these results will be sent to the patient by the facility within 30 days. Benson maciel Signed: Laly Rojas MD at 15:39 EDT Tel , Service support [phone], CC: Pat Buchanan; Lorena Talbot MD Hydroelectric Plant Mechanical Engineer: Signed 01-Jan-2015 Unilat Lt Diag Digital AND CAD Result: Comments: See Note; NOTES: [facility] Imaging Services [address] [place] [address] Breast Imaging Report MR#: [id number] Acct: [id number] Name: SYLVIA RAMIREZ Rep #: [id number] : 1955 F 59 From: Frantz Rojas MD PCP: Lorena Talbot MD Status: REG CLI Study: Unilat Lt Diag Digital AND CAD Date of Exam: 01/01/15 Exam# [id number] Ordering Dr: Pat Buchanan AMMOGRAPHY - UNILATERAL DIAGNOSTIC: LEFT BREAST REASON FOR EXAM: Female, 59 years old. Left breast pain PERTINENT HISTORY: LEFT BREAST PAIN- FM HX- MOTHER @ 66, SISTER @ 49, MAT GMA 70'S. 2 MAT AUN TS 50'S. LT LUMPECTOMY 2006 WOTH RAD TX. BILAT REDUCTION 2010 T 2011. ON MED FOR RARE IMMUNE DZ. C/O LT UOQ PAIN IN LUMPECTOMY SITE X 4 DAYS, LT MOLE MARKED. TECHNIQUE: Digital examination. Mediolat eral oblique (MLO) and craniocaudad (CC) views of the breast were obtained. CAD: CAD was performed on this study. COMPARISON: February 21, 2014 and February 20, 2013 and February 19, 2012 FINDINGS: Breast Composition: The breasts are heterogeneously dense, which may obscure small masses. There is a spiculated mass with architectural distortion in the posteri or aspect of the upper outer quadrant of the left breast measures 2 cm. It has not changed since the previous study most likely represent radial scar. Once again, there is evidence of overlying skin thickening and architectural distortion in the left breast incomplete with prior surgery. No definite abnormality is seen to explain the patient's symptoms. There are suspicious calcifications. No other significant abnormalities are identified. IMPRESSION: Further mammographic evaluation recommended, as described above. (E) ASSESSMENT CATEGORY: BIRADS Category 0: Incomplete. Need additional imaging evaluation. A letter regarding these results will be sent to the patient by the facility within 30 days. Approxim ately 10% of breast cancers are not detected by mammography. A normal mammogram should not delay biopsy of a clinically suspicious abnormality. Electronically Signed: Laly Rojas MD a t 15:34 EDT Tel , Service support [phone], CC: Pat Buchanan; Lorena Talbot MD Hydroelectric Plant Mechanical Engineer: Signed 21-Feb-2014 Bilmarcin Moraes Digital & CAD Result: Comments: See Note; NOTES: [facility] Imaging Services [address] [place] [address] Breast Imaging Report MR#: [id number] Acct: [id number] Name: SYLVIA RAMIREZ Rep #: [id number] : 1955 F 58 From: Tobin Sawant MD PCP: Lorena Talbot MD [facility] Exam# [id number] Ordering Dr: Lorena Talbot MD MAMMOGRAPHY - BILATERAL SCREENING REASON FOR EXAM: Female, 58 years old. Routine annual screening examination. PERTINENT HISTORY: Personal history of breast cancer. The patient is status post left lumpectomy and bilateral breast reduction. Sister wi th breast cancer. Mother with breast cancer. Grandmother with breast cancer. TECHNIQUE: Digital examination. Mediolateral oblique (MLO) and craniocaudad (CC) views of both breasts were obtained. CAD : CAD was performed on this study. COMPARISON: Comparison is made with prior study dated February 20, 2013 and February 19, 2012. FINDINGS: Breast Composition: The breasts are heterogeneously dense, which may obscure small masses. There are no dominant masses or suspicious calcifications. Once again, there is evidence of architectural distortion of the lef t breast with overlying skin thickening. This is in keeping with prior lumpectomy and radiation treatment. Surgical clips are also seen in the left axillary region. No other significant abnormaliti es are identified. There has been no significant change since the prior study. IMPRESSION: Stable bilateral screening mammogram. Yearly follow-up recommended. (A ) ASSESSMENT CATEGORY: BIRADS Category 2: Benign finding(s). A letter regarding these results will be sent to the patient by the facility within 30 days. Appro ximately 10% of breast cancers are not detected by mammography. A normal mammogram should not delay biopsy of a clinically suspicious abnormality. Electronically Signed: Tobin Sawant MD 201 08/03/28 at 9:41 EDT Tel [phone], Service support [phone], CC: Lorena Talbot MD Hydroelectric Plant Mechanical Engineer: Signed 21-Feb-2014 Dexa Bone Density Study (HP) Result: Comments: See Note; NOTES: [facility] Imaging Services [address] [place] [address] Bone Density Report MR#: [id number] Acct: [id number] Name: SYLVIA RAMIREZ Rep #: [id number] : 1955 F 58 From: Tobin Sawant MD PCP: Lorena Talbot MD Status: REG CLI Study: Dexa Bone Density Study (HP) Date of Exam: 02/21/14 Exam# [id number] Ordering Dr: Lorena Talbot MD STUDY: DUAL ENERGY X-RAY ABSORPTIOMETRY / DXA REASON FOR EXAM: Female, 58 years old. The patient is postmenopausal. TECHNIQUE: Bone Mineral Density (BMD) measurements of lumbar spine and bilate ral hips were obtained. COMPARISON: Comparison is made with prior study dated February 17, 2011. FINDINGS: Lumbar Spine (L1-L4): g/cm2 (1.210) / T-score (0.3) / Z-score (1.4) Findings are suggestive of normal bone density with a low fracture risk. Left Femur Total: g/cm2 (0.840) / T-score (-1.3) / Z-score (-0.5) Left Femoral Neck: g/cm2 (0.746) / T-score ( -2.1) / Z-score (-0.9) Right Femur Total: g/cm2 (0.830) / T-score (-1.4) / Z- score (-0.6) Right Femoral Neck: g/cm2 (0.793) / T-score (-1.8) / Z-score (- 0.6) The T-Scores on the most recent prior ex amination were: Lumbar Spine (L1-L4): There has been worsening of bone density since the previous examination. Left Femur Total: which represents a worsening of 17.2%. Right Femur Total: which rep resents a worsening of 17.9%. IMPRESSION: The patient is considered osteopenic as outlined below according to World Jose Organization (WHO) criteria with a mode rate fracture risk. There has been worsening of bone density since the previous examination. Reference Information: The T-score is the number of standard deviat ions above or below the standard which is normal for young adults at their peak bone mineral density. The World Health Organization (WHO) interprets the T- scores as follows: Above -1 Normal bone de nsity Between -1 and -2.5 Osteopenia Equal to / or below -2.5 Osteoporosis As a practical clinical guideline, osteopenia may be graded as follows: Mild - 1 through -1.5 Moderate -1.6 through -2.0 Severe -2.1 through -2.4 The Z-score is the number of standard deviations above or below age-matched controls. A Z-score of less than -1.5 would be considered abnormal. References: 1. NIH Osteopor osis and Related Bone Diseases http://www.osteo.org 2. International Society for Clinical Densitometry http://www.iscd.org 3. National Osteoporosis Foundation http://www.nof.org Electronically Jeanne d: Tobin Sawant MD at 12:35 EDT Tel [phone], Service support [phone], CC: Lorena Talbot MD [employer] Mechanical Engineer: Signed 08-Feb-2014 PT Discharge Summary Result: Comments: See Note; NOTES: [facility] [address] [place] [address] Fax REHABILITATION SERVICES DISCHARGE SUMMARY MR#: [id number] Acct: [id number] Name: SYLVIA RAMIREZ Rep #: [id number] : 1955 58 From: Karrie Chris Referring DrMontrell: Haile Aguilera DO Status: REG RCR Eval Date: Disch rg Date: DATE OF SERVICE: Date of initial evaluation was January 01, 2014. The patient attended physical therapy for 8 visits. Subjectively, she reports that she feels great. She has pain on ly at night and very rarely. She feels that she has her life back. OBJECTIVE: POSTURE: Good throughout treatment session. GAIT: Slightly antalgic with decreased stance time on the left lower extrem ity out of habit. PALPATION: Not tender. STRENGTH: Core is fair plus. Hip is 5/5. Balance: She is able to single leg stance for approximately 15 seconds and then upper extremity assistance is requir ed. GOALS: The patient has either met or made progress towards all and PT feels it is appropriate she be discharged from [facility] and continue independent home exercise progra m. The patient was encouraged to call if she does have any questions or concerns. Karrie Chris DPT T: NTS JOB: [id number] <Electronically signed by Karrie Chris > 02/08/14 0705 CC: Signed 02-Jan-2014 Inital Evaluation - PT Result: Comments: See Note; NOTES: [facility] [address] [place], [place] [id number] Fax REHABILITATION SERVICES INITIAL EVALUATION MR#: [id number] Acct: [id number] Name: SYLVIA RAMIREZ Rep #: [id number] : 1955 58 From: Karrie Chris Referring Dr.: Haile Aguilera DO Status: REG R Insurance: [facility] Eval Date: DATE OF SERVICE: 01/01/2014 Sylvia Ramirez is a 58-year-old female referred to physical therapy by Dr. Aguilera with a medical diagnosis of hip pain. SUBJECTIVE: The patient repor ts that she was diagnosed with an autoimmune disease in April of last year. They have changed her medications and she has gotten incredibly better since spring and 95 percent better. Currently, at this time she reports that she has a bilateral knee pain and hip pain. The hip has been about 5 years and she thinks it is bursitis. Knee pain at its worse is 10/10, best is 0/10, currently is 0/10. It feels like tightness. The hip worst is 5/10, best is 0/10, currently is 0/10. Hips are more dull and achy. The patient reports aggravated by walking downhill, standing up from sitting. Eases ar e sitting and elevating her feet. Her sleep is disturbed when she rolls over, when she extends her knees. She has no problems going up and down steps and she sees a chiropractor for rib problems. On Wednesday she is leaving for the [employer] and will be gone for approximately 2 weeks and they would like to start physical therapy when she gets back. She does not work outside of her home and she does come in and work out with friend. PAST MEDICAL HISTORY: Includes autoimmune disease and breast cancer. MEDICATIONS: Medication for autoimmune disease and Tramadol. OBJECTIVE: POS TURE: Forward head, rounded shoulders, increased kyphosis. GAIT: Antalgic. She has decreased stance time on the right lower extremity and mild hip drop on the right. No assistive device. PALPATION: T rhoda medial joint line bilaterally on the knees and IT band from the knee to the greater trochanter of the hip on the right. RANGE OF MOTION: Within functional limits in all planes. SENSATION/REFLE XES: Intact. FLEXIBILITY: Hamstrings have a moderate restriction, gastrocs has a moderate restriction. STRENGTH: Core strength/stabilization is fair minus. Hip strength is 4-/5 throughout, knee fle xion extension is 5/5, dorsiflexion and plantarflexion 5/5. BALANCE: The patient is able to weight shift; however, she is unable to single leg stance on the right without upper extremity assistance. INITIAL TREATMENT EVALUATION: Educated the patient on diagnosis and plan of care. The patient is agreeable to plan of care. Instructed the patient on home exercise program, which included isometric abdominals, bridging, hip abduction and adduction, IT band stretching and hamstring stretching. ASSESSMENT: Sylvia is a 58-year-old female referred to physical therapy by Dr. Aguilera with a medic al diagnosis of hip pain. The patient presents with hypomobility. The patient has decreased lower extremity strength, flexibility, muscular endurance, decreased core strength/stabilization and abnor mal gait pattern. The patient's rehabilitation potential is fair. The patient will benefit from skilled physical therapy to solve the following problems and meet the following goals. PROBLEM LIST: 1. Decreased knowledge of exercise program. 2. Decreased lower extremity strength. 3. Decreased core strength/stabilization. 4. Abnormal gait pattern. GOALS: 1. The patient will be independent w ith home exercise program progression. 2. The patient will demonstrate 5/5 strength in lower extremities to ease ADLs. 3. The patient will maintain proper posture throughout treatment session and dem onstrate increased core strength/stabilization. 4. The patient will demonstrate ability to ambulate greater than 300 feet with a normalized gait pattern. PLAN OF CARE: The patient will be seen 2 times a week for 4 weeks when she returns from vacation. The patient will be educated on diagnosis and plan of care. The patient will be educated in home exercise program progression. Interventions to include therapeutic exercise, therapeutic activity, neuromuscular education, gait, manual modalities. The patient's anticipated discharge plan is independent with home exercise program and return to normal activities with decreased pain. Karrie Chris DPT T: NTS JOB: [id number] <Electronically signed by Karrie Chris > 01/02/14907 CC: Signed For Medicare only, by signing this I certify the plan of care. Physicians Signature Date Family History Unknown Family Member Name Dates Details Brother 1 Comments: diabetes Status: Active Brother 2 Comments: jaw cancer Status: Active Father Comments: polyps of colon, scarlet fever adn valve issuese Status: Active Mother Comments: breast cancer,colon cancer Status: Active Sister 1 Comments: breastcancer,kayleen hole in heart,emphysemia,pre diabetic Status: Active Social History Name Dates Details Alcohol Use Comments: Occasional alcohol use Status: Active Caffeine Use Comments: 3 cups of coffee a day Status: Active Current Work/Study Status Comments: Unemployed not looking for work Status: Active Exercise History Comments: Moderate Status: Active Living Situation Comments: single lives alone, annie olivares [phone] dtr Status: Active No Drug Use Status: Active Non Smoker/No Tobacco Use Status: Active Number of Adult (age 18 or over) Dependents Comments: 2 Status: Active Tobacco use: Former smoker. Status: Active Smoking Status Name Dates Details Former smoker Vital Signs Date Test Result Details [id number] Pulse 70 /min Comments: Pattern: Regular Respiration Rate 18 /min O2 SAT 97 % Comments: Room air BP Systolic 114 mm[Hg] Comments: Patient Position: Sitting BP Diastolic 70 mm[Hg] Comments: Patient Position: Sitting [id number] Temperature 97.6 f Comments: Method: Temporal Pulse 97 /min Comments: Pattern: Regular Respiration Rate 16 /min Comments: Pattern: Unlabored O2 SAT 98 % Comments: Room air BP Systolic 132 mm[Hg] Comments: Patient Position: Sitting; Cuff Location: Left Arm; Cuff Size: Standard BP Diastolic 70 mm[Hg] Comments: Patient Position: Sitting; Cuff Location: Left Arm; Cuff Size: Standard Weight 144 lb Height 63 in Body Mass Index Calculated 25.51 kg/m2 Body Surface Area Calculated 1.68 m2 :21 Temperature 97.6 f Comments: Method: Temporal Pulse 84 /min Comments: Pattern: Regular Respiration Rate 20 /min Comments: Pattern: Unlabored O2 SAT 97 % Comments: Room air BP Systolic 124 mm[Hg] Comments: Patient Position: Sitting; Cuff Location: Left Arm; Cuff Size: Standard BP Diastolic 76 mm[Hg] Comments: Patient Position: Sitting; Cuff Location: Left Arm; Cuff Size: Standard Weight 144 lb Height 63 in Body Mass Index Calculated 25.51 kg/m2 Body Surface Area Calculated 1.68 m2 :15 Temperature 97.8 f Comments: Method: Temporal Pulse 72 /min Comments: Pattern: Regular Respiration Rate 20 /min Comments: Pattern: Unlabored O2 SAT 99 % Comments: Room air BP Systolic 110 mm[Hg] Comments: Patient Position: Sitting; Cuff Location: Left Arm; Cuff Size: Standard BP Diastolic 74 mm[Hg] Comments: Patient Position: Sitting; Cuff Location: Left Arm; Cuff Size: Standard Weight 143 lb Height 63.5 in Body Mass Index Calculated 24.93 kg/m2 Body Surface Area Calculated 1.69 m2 :33 Temperature 98.3 f Comments: Method: Tympanic Pulse 80 /min Comments: Pattern: Regular Respiration Rate 18 /min Comments: Pattern: Unlabored O2 SAT 98 % Comments: Room air BP Systolic 102 mm[Hg] Comments: Patient Position: Sitting; Cuff Location: Left Arm; Cuff Size: Standard BP Diastolic 60 mm[Hg] Comments: Patient Position: Sitting; Cuff Location: Left Arm; Cuff Size: Standard Weight 143 lb Height 63.5 in Body Mass Index Calculated 24.93 kg/m2 Body Surface Area Calculated 1.69 m2 [id number] Temperature 97.6 f Comments: Method: Temporal Pulse 84 /min Comments: Pattern: Regular Respiration Rate 20 /min Comments: Pattern: Unlabored O2 SAT 98 % Comments: Room air BP Systolic 110 mm[Hg] Comments: Patient Position: Sitting; Cuff Location: Left Arm; Cuff Size: Standard BP Diastolic 74 mm[Hg] Comments: Patient Position: Sitting; Cuff Location: Left Arm; Cuff Size: Standard Weight 143 lb Height 63.5 in Body Mass Index Calculated 24.93 kg/m2 Body Surface Area Calculated 1.69 m2 :09 Temperature 97.9 f Comments: Method: Temporal Pulse 90 /min Comments: Pattern: Regular Respiration Rate 18 /min Comments: Pattern: Unlabored O2 SAT 98 % Comments: Room air BP Systolic 120 mm[Hg] Comments: Patient Position: Sitting; Cuff Location: Left Arm; Cuff Size: Standard BP Diastolic 78 mm[Hg] Comments: Patient Position: Sitting; Cuff Location: Left Arm; Cuff Size: Standard Weight 143 lb Height 63.5 in Body Mass Index Calculated 24.93 kg/m2 Body Surface Area Calculated 1.69 m2 :13 Temperature 98 f Pulse 78 /min Comments: Pattern: Regular Respiration Rate 16 /min Comments: Pattern: Unlabored O2 SAT 95 % Comments: Room air BP Systolic 104 mm[Hg] Comments: Patient Position: Sitting; Cuff Location: Left Arm; Cuff Size: Standard BP Diastolic 58 mm[Hg] Comments: Patient Position: Sitting; Cuff Location: Left Arm; Cuff Size: Standard Weight 149 lb Height 63 in Body Mass Index Calculated 26.39 kg/m2 Body Surface Area Calculated 1.71 m2 :01 Temperature 98.8 f Comments: Method: Temporal Pulse 74 /min Comments: Pattern: Regular Respiration Rate 18 /min Comments: Pattern: Unlabored O2 SAT 97 % Comments: Room air BP Systolic 116 mm[Hg] Comments: Patient Position: Sitting; Cuff Location: Left Arm; Cuff Size: Standard BP Diastolic 76 mm[Hg] Comments: Patient Position: Sitting; Cuff Location: Left Arm; Cuff Size: Standard Weight 149 lb Height 63 in Body Mass Index Calculated 26.39 kg/m2 Body Surface Area Calculated 1.71 m2 :17 Temperature 98 f Comments: Method: Temporal Pulse 74 /min Comments: Pattern: Regular Respiration Rate 20 /min Comments: Pattern: Unlabored O2 SAT 94 % Comments: Room air BP Systolic 118 mm[Hg] Comments: Patient Position: Sitting; Cuff Location: Left Arm; Cuff Size: Standard BP Diastolic 76 mm[Hg] Comments: Patient Position: Sitting; Cuff Location: Left Arm; Cuff Size: Standard Weight 149 lb Height 63 in Body Mass Index Calculated 26.39 kg/m2 Body Surface Area Calculated 1.71 m2 :40 Temperature 97.6 f Comments: Method: Temporal Pulse 90 /min Comments: Pattern: Regular Respiration Rate 20 /min Comments: Pattern: Unlabored O2 SAT 97 % Comments: Room air BP Systolic 116 mm[Hg] Comments: Patient Position: Sitting; Cuff Location: Left Arm; Cuff Size: Standard BP Diastolic 76 mm[Hg] Comments: Patient Position: Sitting; Cuff Location: Left Arm; Cuff Size: Standard Weight 149 lb Height 63 in Body Mass Index Calculated 26.39 kg/m2 Body Surface Area Calculated 1.71 m2 :13 Temperature 97.6 f Comments: Method: Temporal Pulse 78 /min Comments: Pattern: Regular Respiration Rate 18 /min Comments: Pattern: Unlabored O2 SAT 98 % Comments: Room air BP Systolic 140 mm[Hg] Comments: Patient Position: Sitting; Cuff Location: Left Arm; Cuff Size: Standard BP Diastolic 90 mm[Hg] Comments: Patient Position: Sitting; Cuff Location: Left Arm; Cuff Size: Standard Weight 149 lb Height 63 in Body Mass Index Calculated 26.39 kg/m2 Body Surface Area Calculated 1.71 m2 :25 Pulse 64 /min Comments: Pattern: Regular Respiration Rate 18 /min Comments: Pattern: Unlabored O2 SAT 98 % Comments: Room air BP Systolic 120 mm[Hg] Comments: Patient Position: Sitting; Cuff Location: Left Arm; Cuff Size: Standard BP Diastolic 78 mm[Hg] Comments: Patient Position: Sitting; Cuff Location: Left Arm; Cuff Size: Standard Weight 149.25 lb Height 63 in Body Mass Index Calculated 26.44 kg/m2 Body Surface Area Calculated 1.71 m2 :54 Temperature 99.6 f Comments: Method: Tympanic Respiration Rate 18 /min Comments: Pattern: Unlabored O2 SAT 98 % Comments: Room air BP Systolic 116 mm[Hg] Comments: Patient Position: Sitting; Cuff Location: Left Arm; Cuff Size: Standard BP Diastolic 64 mm[Hg] Comments: Patient Position: Sitting; Cuff Location: Left Arm; Cuff Size: Standard Weight 147 lb Height 63 in Body Mass Index Calculated 26.04 kg/m2 Body Surface Area Calculated 1.7 m2 :11 Temperature 98.4 f Pulse 79 /min Comments: Pattern: Regular Respiration Rate 16 /min Comments: Pattern: Unlabored O2 SAT 98 % Comments: Room air BP Systolic 118 mm[Hg] Comments: Patient Position: Sitting; Cuff Location: Left Arm; Cuff Size: Standard BP Diastolic 78 mm[Hg] Comments: Patient Position: Sitting; Cuff Location: Left Arm; Cuff Size: Standard Weight 146 lb Height 63 in Body Mass Index Calculated 25.86 kg/m2 Body Surface Area Calculated 1.69 m2 :54 Temperature 99.3 f Comments: Method: Oral Pulse 84 /min Comments: Pattern: Regular Respiration Rate 18 /min Comments: Pattern: Unlabored O2 SAT 97 % Comments: Room air BP Systolic 128 mm[Hg] Comments: Patient Position: Sitting; Cuff Location: Right Arm; Cuff Size: Standard BP Diastolic 78 mm[Hg] Comments: Patient Position: Sitting; Cuff Location: Right Arm; Cuff Size: Standard Weight 146 lb Height 63 in Body Mass Index Calculated 25.86 kg/m2 Body Surface Area Calculated 1.69 m2 :49 Temperature 98.5 f Comments: Method: Oral Pulse 84 /min Comments: Pattern: Regular Respiration Rate 16 /min Comments: Pattern: Unlabored BP Systolic 108 mm[Hg] Comments: Patient Position: Sitting; Cuff Location: Left Arm; Cuff Size: Standard BP Diastolic 70 mm[Hg] Comments: Patient Position: Sitting; Cuff Location: Left Arm; Cuff Size: Standard Weight 155.25 lb Height 63 in Body Mass Index Calculated 27.5 kg/m2 Body Surface Area Calculated 1.74 m2 :43 Temperature 97.6 f Comments: Method: Oral Pulse 74 /min Comments: Pattern: Regular Respiration Rate 16 /min O2 SAT 97 % Comments: Room air BP Systolic 118 mm[Hg] Comments: Patient Position: Sitting; Cuff Location: Left Arm; Cuff Size: Standard BP Diastolic 78 mm[Hg] Comments: Patient Position: Sitting; Cuff Location: Left Arm; Cuff Size: Standard Weight 155.25 lb Height 63 in Body Mass Index Calculated 27.5 kg/m2 Body Surface Area Calculated 1.74 m2 :11 Temperature 98.2 f Comments: Method: Temporal Pulse 85 /min Comments: Pattern: Regular Respiration Rate 16 /min Comments: Pattern: Unlabored O2 SAT 97 % Comments: Room air BP Systolic 124 mm[Hg] Comments: Patient Position: Sitting; Cuff Location: Left Arm; Cuff Size: Standard BP Diastolic 62 mm[Hg] Comments: Patient Position: Sitting; Cuff Location: Left Arm; Cuff Size: Standard Weight 155.25 lb Height 63 in Body Mass Index Calculated 27.5 kg/m2 Body Surface Area Calculated 1.74 m2 [id number] Temperature 98.9 f Comments: Method: Oral Pulse 82 /min Comments: Pattern: Regular Respiration Rate 16 /min O2 SAT 97 % Comments: Room air BP Systolic 122 mm[Hg] Comments: Patient Position: Sitting; Cuff Location: Left Arm; Cuff Size: Standard BP Diastolic 70 mm[Hg] Comments: Patient Position: Sitting; Cuff Location: Left Arm; Cuff Size: Standard Weight 159.25 lb Height 63 in Body Mass Index Calculated 28.21 kg/m2 Body Surface Area Calculated 1.76 m2 :09 Pulse 79 /min Comments: Pattern: Regular Respiration Rate 16 /min Comments: Pattern: Unlabored O2 SAT 98 % Comments: Room air BP Systolic 120 mm[Hg] Comments: Patient Position: Sitting; Cuff Location: Left Arm; Cuff Size: Standard BP Diastolic 76 mm[Hg] Comments: Patient Position: Sitting; Cuff Location: Left Arm; Cuff Size: Standard :12 Temperature 99.4 f Comments: Method: Oral Pulse 88 /min Comments: Pattern: Regular Respiration Rate 16 /min O2 SAT 97 % Comments: Room air BP Systolic 116 mm[Hg] Comments: Patient Position: Sitting; Cuff Location: Left Arm; Cuff Size: Standard BP Diastolic 70 mm[Hg] Comments: Patient Position: Sitting; Cuff Location: Left Arm; Cuff Size: Standard Weight 159.25 lb Height 63 in Body Mass Index Calculated 28.21 kg/m2 Body Surface Area Calculated 1.76 m2 :33 Temperature 97.4 f Comments: Method: Oral Pulse 81 /min Comments: Pattern: Regular Respiration Rate 16 /min Comments: Pattern: Unlabored O2 SAT 98 % Comments: Room air BP Systolic 122 mm[Hg] Comments: Patient Position: Sitting; Cuff Location: Left Arm; Cuff Size: Standard BP Diastolic 70 mm[Hg] Comments: Patient Position: Sitting; Cuff Location: Left Arm; Cuff Size: Standard Weight 154 lb Height 63 in Body Mass Index Calculated 27.28 kg/m2 Body Surface Area Calculated 1.73 m2 :54 Pulse 93 /min Comments: Pattern: Regular Respiration Rate 20 /min Comments: Pattern: Unlabored O2 SAT 97 % Comments: Room air BP Systolic 118 mm[Hg] Comments: Patient Position: Sitting; Cuff Location: Left Arm; Cuff Size: Large BP Diastolic 78 mm[Hg] Comments: Patient Position: Sitting; Cuff Location: Left Arm; Cuff Size: Large Weight 154 lb Height 63 in Body Mass Index Calculated 27.28 kg/m2 Body Surface Area Calculated 1.73 m2 :07 Temperature 97 f Comments: Method: Temporal Pulse 72 /min Comments: Pattern: Regular Respiration Rate 16 /min Comments: Pattern: Unlabored O2 SAT 98 % Comments: Room air BP Systolic 104 mm[Hg] Comments: Patient Position: Sitting; Cuff Location: Left Arm; Cuff Size: Standard BP Diastolic 72 mm[Hg] Comments: Patient Position: Sitting; Cuff Location: Left Arm; Cuff Size: Standard Weight 154 lb Height 63 in Body Mass Index Calculated 27.28 kg/m2 Body Surface Area Calculated 1.73 m2 :45 Temperature 98.2 f Comments: Method: Oral Pulse 80 /min Comments: Pattern: Regular Respiration Rate 20 /min Comments: Pattern: Unlabored BP Systolic 132 mm[Hg] Comments: Patient Position: Sitting; Cuff Location: Left Arm; Cuff Size: Large BP Diastolic 86 mm[Hg] Comments: Patient Position: Sitting; Cuff Location: Left Arm; Cuff Size: Large Weight 154 lb Height 63 in Body Mass Index Calculated 27.28 kg/m2 Body Surface Area Calculated 1.73 m2 :06 Pulse 60 /min Comments: Pattern: Regular Respiration Rate 16 /min Comments: Pattern: Unlabored BP Systolic 122 mm[Hg] Comments: Patient Position: Sitting; Cuff Location: Left Arm; Cuff Size: Large BP Diastolic 80 mm[Hg] Comments: Patient Position: Sitting; Cuff Location: Left Arm; Cuff Size: Large Weight 154 lb Height 63 in Body Mass Index Calculated 27.28 kg/m2 Body Surface Area Calculated 1.73 m2 :57 Temperature 98.2 f Comments: Method: Temporal Pulse 68 /min Comments: Pattern: Regular Respiration Rate 16 /min Comments: Pattern: Unlabored O2 SAT 98 % Comments: Room air BP Systolic 122 mm[Hg] Comments: Patient Position: Sitting; Cuff Location: Left Arm; Cuff Size: Standard BP Diastolic 74 mm[Hg] Comments: Patient Position: Sitting; Cuff Location: Left Arm; Cuff Size: Standard Weight 154 lb Height 63 in Body Mass Index Calculated 27.28 kg/m2 Body Surface Area Calculated 1.73 m2 :17 Temperature 97.8 f Comments: Method: Oral Pulse 70 /min Comments: Pattern: Regular Respiration Rate 18 /min Comments: Pattern: Unlabored BP Systolic 118 mm[Hg] Comments: Patient Position: Sitting; Cuff Location: Left Arm; Cuff Size: Standard BP Diastolic 78 mm[Hg] Comments: Patient Position: Sitting; Cuff Location: Left Arm; Cuff Size: Standard Weight 154 lb Height 63 in Body Mass Index Calculated 27.28 kg/m2 Body Surface Area Calculated 1.73 m2 :28 Temperature 98.2 f Comments: Method: Oral Pulse 70 /min Comments: Pattern: Regular Respiration Rate 18 /min Comments: Pattern: Unlabored BP Systolic 124 mm[Hg] Comments: Patient Position: Sitting; Cuff Location: Left Arm; Cuff Size: Standard BP Diastolic 78 mm[Hg] Comments: Patient Position: Sitting; Cuff Location: Left Arm; Cuff Size: Standard Weight 157 lb Height 63 in Body Mass Index Calculated 27.81 kg/m2 Body Surface Area Calculated 1.74 m2 :05 Temperature 98.2 f Comments: Method: Oral Pulse 70 /min Comments: Pattern: Regular Respiration Rate 18 /min Comments: Pattern: Unlabored BP Systolic 114 mm[Hg] Comments: Patient Position: Sitting; Cuff Location: Left Arm; Cuff Size: Standard BP Diastolic 74 mm[Hg] Comments: Patient Position: Sitting; Cuff Location: Left Arm; Cuff Size: Standard Weight 157 lb Height 63 in Body Mass Index Calculated 27.81 kg/m2 Body Surface Area Calculated 1.74 m2 :59 Pulse 68 /min Comments: Pattern: Regular Respiration Rate 18 /min Comments: Pattern: Unlabored BP Systolic 106 mm[Hg] Comments: Patient Position: Sitting; Cuff Location: Left Arm; Cuff Size: Standard BP Diastolic 72 mm[Hg] Comments: Patient Position: Sitting; Cuff Location: Left Arm; Cuff Size: Standard Weight 157 lb :18 Temperature 98.3 f Comments: Method: Oral Pulse 68 /min Comments: Pattern: Regular Respiration Rate 18 /min Comments: Pattern: Unlabored BP Systolic 108 mm[Hg] Comments: Patient Position: Sitting; Cuff Location: Right Arm; Cuff Size: Standard BP Diastolic 60 mm[Hg] Comments: Patient Position: Sitting; Cuff Location: Right Arm; Cuff Size: Standard Weight 157.5625 lb :33 Pulse 70 /min Comments: Pattern: Regular Respiration Rate 18 /min Comments: Pattern: Unlabored BP Systolic 112 mm[Hg] Comments: Patient Position: Sitting; Cuff Location: Left Arm; Cuff Size: Standard BP Diastolic 78 mm[Hg] Comments: Patient Position: Sitting; Cuff Location: Left Arm; Cuff Size: Standard Weight 156 lb :39 Pulse 72 /min Comments: Pattern: Regular Respiration Rate 18 /min Comments: Pattern: Unlabored BP Systolic 120 mm[Hg] Comments: Patient Position: Sitting; Cuff Location: Left Arm; Cuff Size: Standard BP Diastolic 92 mm[Hg] Comments: Patient Position: Sitting; Cuff Location: Left Arm; Cuff Size: Standard :35 Pulse 72 /min Comments: Pattern: Regular Respiration Rate 18 /min Comments: Pattern: Unlabored BP Systolic 114 mm[Hg] Comments: Patient Position: Sitting; Cuff Location: Left Arm; Cuff Size: Standard BP Diastolic 74 mm[Hg] Comments: Patient Position: Sitting; Cuff Location: Left Arm; Cuff Size: Standard Weight 161 lb Height 63 in Body Mass Index Calculated 28.52 kg/m2 Body Surface Area Calculated 1.76 m2 :12 Pulse 60 /min Comments: Pattern: Regular Respiration Rate 18 /min Comments: Pattern: Unlabored BP Systolic 116 mm[Hg] Comments: Patient Position: Sitting; Cuff Location: Left Arm; Cuff Size: Standard BP Diastolic 70 mm[Hg] Comments: Patient Position: Sitting; Cuff Location: Left Arm; Cuff Size: Standard Weight 158 lb :53 Pulse 70 /min Comments: Pattern: Regular Respiration Rate 16 /min Comments: Pattern: Unlabored BP Systolic 114 mm[Hg] Comments: Patient Position: Sitting; Cuff Location: Left Arm; Cuff Size: Standard BP Diastolic 68 mm[Hg] Comments: Patient Position: Sitting; Cuff Location: Left Arm; Cuff Size: Standard Weight 0 lb Height 0 in Head Circumference 0.00 cm :08 Temperature 98.4 f Comments: Method: Oral Pulse 74 /min Comments: Pattern: Regular Respiration Rate 16 /min Comments: Pattern: Unlabored BP Systolic 120 mm[Hg] Comments: Patient Position: Sitting; Cuff Location: Left Arm; Cuff Size: Standard BP Diastolic 78 mm[Hg] Comments: Patient Position: Sitting; Cuff Location: Left Arm; Cuff Size: Standard Weight 162 lb Height 0 in Head Circumference 0.00 cm :03 Pulse 72 /min Comments: Pattern: Regular Respiration Rate 20 /min Comments: Pattern: Unlabored BP Systolic 102 mm[Hg] Comments: Patient Position: Sitting; Cuff Location: Right Arm; Cuff Size: Standard BP Diastolic 68 mm[Hg] Comments: Patient Position: Sitting; Cuff Location: Right Arm; Cuff Size: Standard Weight 162 lb Height 63.5 in Body Mass Index Calculated 28.25 kg/m2 Body Surface Area Calculated 1.78 m2 Head Circumference 0.00 cm :44 Temperature 97.8 f Comments: Method: Oral Pulse 76 /min Comments: Pattern: Regular Respiration Rate 18 /min Comments: Pattern: Unlabored BP Systolic 122 mm[Hg] Comments: Patient Position: Sitting; Cuff Location: Right Arm; Cuff Size: Standard BP Diastolic 74 mm[Hg] Comments: Patient Position: Sitting; Cuff Location: Right Arm; Cuff Size: Standard Weight 0 lb Height 0 in Head Circumference 0.00 cm :18 Temperature 97.7 f Comments: Method: Oral Pulse 78 /min Comments: Pattern: Regular Respiration Rate 18 /min Comments: Pattern: Unlabored BP Systolic 112 mm[Hg] Comments: Patient Position: Sitting; Cuff Location: Left Arm; Cuff Size: Standard BP Diastolic 66 mm[Hg] Comments: Patient Position: Sitting; Cuff Location: Left Arm; Cuff Size: Standard Weight 162 lb Height 63.5 in Body Mass Index Calculated 28.25 kg/m2 Body Surface Area Calculated 1.78 m2 Head Circumference 0.00 cm :03 Temperature 98.4 f Comments: Method: Oral Pulse 74 /min Comments: Pattern: Regular Respiration Rate 16 /min Comments: Pattern: Unlabored BP Systolic 122 mm[Hg] Comments: Patient Position: Sitting; Cuff Location: Left Arm; Cuff Size: Standard BP Diastolic 78 mm[Hg] Comments: Patient Position: Sitting; Cuff Location: Left Arm; Cuff Size: Standard Weight 0 lb Height 0 in Head Circumference 0.00 cm :02 Temperature 98.2 f Comments: Method: Oral Pulse 70 /min Comments: Pattern: Regular Respiration Rate 18 /min Comments: Pattern: Unlabored BP Systolic 118 mm[Hg] Comments: Patient Position: Sitting; Cuff Location: Left Arm; Cuff Size: Standard BP Diastolic 72 mm[Hg] Comments: Patient Position: Sitting; Cuff Location: Left Arm; Cuff Size: Standard Weight 0 lb Height 0 in Head Circumference 0.00 cm :02 Temperature 98.2 f Comments: Method: Oral Pulse 68 /min Comments: Pattern: Regular Respiration Rate 18 /min Comments: Pattern: Unlabored BP Systolic 124 mm[Hg] Comments: Patient Position: Sitting; Cuff Location: Left Arm; Cuff Size: Standard BP Diastolic 76 mm[Hg] Comments: Patient Position: Sitting; Cuff Location: Left Arm; Cuff Size: Standard Weight 0 lb Height 0 in Head Circumference 0.00 cm :10 Temperature 98.8 f Comments: Method: Oral Pulse 68 /min Comments: Pattern: Regular Respiration Rate 16 /min Comments: Pattern: Unlabored BP Systolic 108 mm[Hg] Comments: Patient Position: Sitting; Cuff Location: Right Arm; Cuff Size: Standard BP Diastolic 78 mm[Hg] Comments: Patient Position: Sitting; Cuff Location: Right Arm; Cuff Size: Standard Weight 162.5625 lb Height 63.5 in Body Mass Index Calculated 28.34 kg/m2 Body Surface Area Calculated 1.78 m2 Head Circumference 0.00 cm Results Date Description Value Details :49 CBC W/Diff, Automated Comments: [facility] [address] [place], [place], [id number] SMEAR COMMENT (Normal) Comments: LYMPHOPENIA NOTED Absolute Lymph 0.29 {X10_3/ul} (Abnormal) Range: 0.83-4.51 Absolute Neut 5.5 {X10_3/uL} (Normal) Range: 2.0-7.7 IM GRAN % 0.000 % (Normal) Range: 0.0-0.9 Comments: IG% - Immature Granulocytes (promyelocytes, myelocytes andmetamyelocytes) > 1% indicates that a LEFT SHIFT is Present. BASO% 0.3 % (Normal) Range: 0-1 EO% 1.0 % (Normal) Range: 0-5 MONO% 2.3 % (Normal) Range: 0-10 LY% 4.8 % (Abnormal) Range: 19-41 NEUT% 91.6 % (Abnormal) Range: 47-70 MPV 9.9 fL (Normal) Range: 6.2-12.0 PLT 255 K/mm3 (Normal) Range: 150-450 RDW SD 58.5 fL (Abnormal) Range: 35.1-43.9 RDW CV 15.6 % (Abnormal) Range: 11.6-14.6 MCHC 32.8 {g/gl} (Normal) Range: 32-36 MCH 34.4 pg (Abnormal) Range: 27.0-32.0 MCV 104.6 fL (Abnormal) Range: 81-99 HCT 41.1 % (Normal) Range: 37-47 HGB 13.5 g/dL (Normal) Range: 12.0-15.0 RBC 3.93 {M/mm3} (Abnormal) Range: 4.2-5.4 WBC 6.0 K/mm3 (Normal) Range: 4.4-11.0 02-Cdt-092785:49 CPK Total, Creatine Kinase Comments: [address], [id number] CPK TOTAL 1954 U/L (Abnormal) Range: 26-192 76-Qet-160611:49 Liver Profile Comments: [address], [address] D BILI 0.14 mg/dL (Normal) Range: 0.00-0.30 T BILI 0.60 mg/dL (Normal) Range: 0.20-1.00 ALT 92 U/L (Abnormal) Range: 13-56 ALK P 61 U/L (Normal) Range: 45-117 AST 76 U/L (Abnormal) Range: 15-37 GLOB 3.7 g/dL (Normal) Range: 2.2-4.2 ALB 3.6 g/dL (Normal) Range: 3.2-5.0 T PROT 7.3 g/dL (Normal) Range: 6.4-8.2 14-Frz-675250:49 Serum Creatinine AND GFR Comments: [address], [id number] EST GFR - AA 137 mL/min (Normal) Comments: GFR Calc EST GFR 113 mL/min (Normal) Comments: Non- GFR Calc CREAT,SERUM 0.57 mg/dL (Normal) Range: 0.55-1.02 Comments: The validity of the calculated GFR AND GFRAA in patients over70 years has not been determined. Clinical correlation isessential. 51-Eqq-[id number]:35 Methymalonic Acid, Serum Comments: PATIENT NOT FASTINGPERFORMED BY: [address] [id number] BY: [place] [id number] [facility] [id number] ([id number]) Disclaimer: SPRCS (Normal) Comments: This test was developed and its performance characteristicsdetermined by manetch. It has not been cleared or approvedby the Food and Drug Administration. Methylmalonic Acid, Serum 82 nmol/L (Normal) Range: 0-378 81-Zsh-980059:35 Vitamin B-12 Comments: PATIENT NOT FASTINGPERFORMED BY: [address] [id number] BY: [facility] HospitalQuaDPharmaTodd [place] [id number] [facility] [id number] (cyanocobalamin) (73021) Vitamin B12 852 pg/mL (Normal) Range: 232-1245 57-Gcc-274487:35 HELICOBACTER PYLORI Comments: PATIENT NOT FASTINGPERFORMED BY: [address] [id number] BY: [place] [id number] [facility] [id number] ANTIBODY (44594) H. pylori, IgG Abs 0.17 {Index_Value} (Normal) Range: 0.00-0.79 Comments: Negative <0.80 Equivocal 0.80 - 0.89 Positive >0.89 55-Fkc-553857:35 Creatine Kinase Total Comments: PATIENT NOT FASTINGPERFORMED BY: [address] [id number] BY: [place] [id number] [facility] [id number] (39429) Creatine Kinase,Total 425 U/L (Abnormal) Range: 24-173 23-Cwe-991867:35 C-Reactive Protein Comments: PATIENT NOT FASTINGPERFORMED BY: [address] [place] [id number] BY: [facility] Uzaavu5[address] Brian FoxLake [facility] [place] [id number] ([address]) C-Reactive Protein, Quant 6.0 mg/L (Abnormal) Range: 0.0-4.9 :50 Basic Metabolic Profile (BMP) Comments: [facility] [address] [place], [place], [id number] GAP 10 (Normal) Range: 5-15 CO2 26.0 mmol/L (Normal) Range: 21.0-32.0 CL 101 mmol/L (Normal) Range: 98-107 K 3.6 mmol/L (Normal) Range: 3.5-5.1 NA 137 mmol/L (Normal) Range: 136-145 CA 8.2 mg/dL (Abnormal) Range: 8.5-10.1 BUN/CRE 11.4 {RATIO} (Normal) Range: 10-20 Estimated CRCL 95.04 ml/min (Normal) EST GFR - AA 151 mL/min (Normal) Comments: GFR Calc EST GFR 125 mL/min (Normal) Comments: Non- GFR Calc CREAT,SERUM 0.53 mg/dL (Abnormal) Range: 0.55-1.02 Comments: The validity of the calculated GFR AND GFRAA in patients over70 years has not been determined. Clinical correlation isessential. BUN 6 mg/dL (Abnormal) Range: 7-18 GLU 103 mg/dL (Normal) Range: 74-106 Comments: Fasting Glucose result from 100 to 125 mg/dLsuggests IMPAIRED HOMEOSTASIS per A.D.A. criteria.Please note revised GLUCOSE reference range /02/2018. :50 CBC W/Diff, Automated Comments: [facility] [address]. [place], [place], [id number] SMEAR COMMENT SCANNED (Normal) Absolute Lymph 0.21 {X10_3/ul} (Abnormal) Range: 0.83-4.51 Absolute Neut 2.9 {X10_3/uL} (Normal) Range: 2.0-7.7 IM GRAN % 0.300 % (Normal) Range: 0.0-0.9 Comments: IG% - Immature Granulocytes (promyelocytes, myelocytes andmetamyelocytes) > 1% indicates that a LEFT SHIFT is Present. BASO% 0.3 % (Normal) Range: 0-1 EO% 2.6 % (Normal) Range: 0-5 MONO% 6.3 % (Normal) Range: 0-10 LY% 6.1 % (Abnormal) Range: 19-41 NEUT% 84.4 % (Abnormal) Range: 47-70 MPV 9.8 fL (Normal) Range: 6.2-12.0 PLT 182 K/mm3 (Normal) Range: 150-450 RDW SD 60.2 fL (Abnormal) Range: 35.1-43.9 RDW CV 15.6 % (Abnormal) Range: 11.6-14.6 MCHC 35.0 {g/gl} (Normal) Range: 32-36 MCH 37.6 pg (Abnormal) Range: 27.0-32.0 MCV 107.5 fL (Abnormal) Range: 81-99 HCT 38.9 % (Normal) Range: 37-47 HGB 13.6 g/dL (Normal) Range: 12.0-15.0 RBC 3.62 {M/mm3} (Abnormal) Range: 4.2-5.4 WBC 3.5 K/mm3 (Abnormal) Range: 4.4-11.0 :50 Lipase Comments: [facility] [address] [place] [address], [id number] LIPASE 171 U/L (Normal) Range: 73-393 :50 Liver Profile Comments: [facility] [address] [place] [address], [id number] D BILI 0.27 mg/dL (Normal) Range: 0.00-0.30 T BILI 1.10 mg/dL (Abnormal) Range: 0.20-1.00 ALT 36 U/L (Normal) Range: 13-56 ALK P 46 U/L (Normal) Range: 45-117 AST 32 U/L (Normal) Range: 15-37 GLOB 3.9 g/dL (Normal) Range: 2.2-4.2 ALB 3.6 g/dL (Normal) Range: 3.2-5.0 T PROT 7.5 g/dL (Normal) Range: 6.4-8.2 43-Awt-611063:27 CBC-Complete Blood Cnt No Diff Comments: [facility] [address] [place], [place], [id number] MPV 10.2 fL (Normal) Range: 6.2-12.0 PLT 204 K/mm3 (Normal) Range: 150-450 RDW SD 59.6 fL (Abnormal) Range: 35.1-43.9 RDW CV 16.0 % (Abnormal) Range: 11.6-14.6 MCHC 33.4 {g/gl} (Normal) Range: 32-36 MCH 34.4 pg (Abnormal) Range: 27.0-32.0 MCV 102.9 fL (Abnormal) Range: 81-99 HCT 39.5 % (Normal) Range: 37-47 HGB 13.2 g/dL (Normal) Range: 12.0-15.0 RBC 3.84 {M/mm3} (Abnormal) Range: 4.2-5.4 WBC 4.0 K/mm3 (Abnormal) Range: 4.4-11.0 75-Tga-493352:27 CPK Total, Creatine Kinase Comments: [facility] [address] [place], [place], [id number] CPK TOTAL 577 U/L (Abnormal) Range: 26-192 36-Bmb-586338:27 Liver Profile Comments: [facility] [address] [place], [place], [address] D BILI 0.16 mg/dL (Normal) Range: 0.00-0.30 T BILI 0.90 mg/dL (Normal) Range: 0.20-1.00 ALT 36 U/L (Normal) Range: 13-56 ALK P 43 U/L (Abnormal) Range: 45-117 AST 33 U/L (Normal) Range: 15-37 GLOB 3.7 g/dL (Normal) Range: 2.2-4.2 ALB 3.8 g/dL (Normal) Range: 3.2-5.0 T PROT 7.5 g/dL (Normal) Range: 6.4-8.2 22-Eyo-866512:27 Serum Creatinine AND GFR Comments: [facility] [address] [place], [place], [address] EST GFR - AA 163 mL/min (Normal) Comments: GFR Calc EST GFR 135 mL/min (Normal) Comments: Non- GFR Calc CREAT,SERUM 0.49 mg/dL (Abnormal) Range: 0.55-1.02 Comments: The validity of the calculated GFR AND GFRAA in patients over70 years has not been determined. Clinical correlation isessential. 32-Gkg-568633:23 CBC W/Diff, Automated Comments: [facility] [address] [place], [place], [id number] BASO STIP RARE (Normal) PLT EST ADEQUATE (Normal) Absolute Lymph 0.27 {X10_3/ul} (Abnormal) Range: 0.83-4.51 Absolute Neut 3.5 {X10_3/uL} (Normal) Range: 2.0-7.7 IM GRAN % 0.200 % (Normal) Range: 0.0-0.9 Comments: IG% - Immature Granulocytes (promyelocytes, myelocytes andmetamyelocytes) > 1% indicates that a LEFT SHIFT is Present. BASO% 0.7 % (Normal) Range: 0-1 EO% 2.2 % (Normal) Range: 0-5 MONO% 6.0 % (Normal) Range: 0-10 LY% 6.5 % (Abnormal) Range: 19-41 NEUT% 84.4 % (Abnormal) Range: 47-70 MPV 10.5 fL (Normal) Range: 6.2-12.0 PLT 238 K/mm3 (Normal) Range: 150-450 RDW SD 55.6 fL (Abnormal) Range: 35.1-43.9 RDW CV 14.8 % (Abnormal) Range: 11.6-14.6 MCHC 33.8 {g/gl} (Normal) Range: 32-36 MCH 35.5 pg (Abnormal) Range: 27.0-32.0 MCV 105.1 fL (Abnormal) Range: 81-99 HCT 38.8 % (Normal) Range: 37-47 HGB 13.1 g/dL (Normal) Range: 12.0-15.0 RBC 3.69 {M/mm3} (Abnormal) Range: 4.2-5.4 WBC 4.2 K/mm3 (Abnormal) Range: 4.4-11.0 :34 CBC-Complete Blood Cnt No Diff Comments: [facility] [address] [place], [place], [phone] MPV 10.1 fL (Normal) Range: 6.2-12.0 PLT 228 K/mm3 (Normal) Range: 150-450 RDW SD 58.0 fL (Abnormal) Range: 35.1-43.9 RDW CV 14.9 % (Abnormal) Range: 11.6-14.6 MCHC 33.9 {g/gl} (Normal) Range: 32-36 MCH 36.2 pg (Abnormal) Range: 27.0-32.0 MCV 106.7 fL (Abnormal) Range: 81-99 HCT 41.3 % (Normal) Range: 37-47 HGB 14.0 g/dL (Normal) Range: 12.0-15.0 RBC 3.87 {M/mm3} (Abnormal) Range: 4.2-5.4 WBC 3.5 K/mm3 (Abnormal) Range: 4.4-11.0 :34 CPK Total, Creatine Kinase Comments: [facility] [address] [place], [place], [id number] CPK TOTAL 909 U/L (Abnormal) Range: 26-192 :34 Liver Profile Comments: [address] [place], [place], [id number] D BILI 0.16 mg/dL (Normal) Range: 0.00-0.30 T BILI 0.70 mg/dL (Normal) Range: 0.20-1.00 ALT 49 U/L (Normal) Range: 13-56 ALK P 52 U/L (Normal) Range: 45-117 AST 44 U/L (Abnormal) Range: 15-37 GLOB 3.8 g/dL (Normal) Range: 2.2-4.2 ALB 3.5 g/dL (Normal) Range: 3.2-5.0 T PROT 7.3 g/dL (Normal) Range: 6.4-8.2 :34 Serum Creatinine AND GFR Comments: [facility] [address] [place], [place], [phone] EST GFR - AA 192 mL/min (Normal) Comments: GFR Calc EST GFR 159 mL/min (Normal) Comments: Non- GFR Calc CREAT,SERUM 0.43 mg/dL (Abnormal) Range: 0.55-1.02 Comments: The validity of the calculated GFR AND GFRAA in patients over70 years has not been determined. Clinical correlation isessential. :23 Hep B Surface Antibodies Comments: Is Patient Fasting? [facility] (refer to report for specific site)refer to report for address and phone number Hep B Michael AB Reactive (Normal) Comments: Non Reactive: Inconsistent with immunity, less than 10 mIU/mL Reactive: Consistent with immunity, greater than 9.9 mIU/mL :23 Hepatitis B Surface Ag Comments: Is Patient Fasting? [facility] (refer to report for specific site)refer to report for address and phone number HB SURF AG Negative (Normal) :23 Hepatitis B Core Ab Total Comments: Is Patient Fasting? [facility] (refer to report for specific site)refer to report for address and phone number HEP B CORE,TOT Negative (Normal) Comments: Performed at: [facility] [id number] Director: Arsh Cuellar PhD, Phone: [phone] :23 Hepatitis C Antibodies Comments: Is Patient Fasting? [facility] (refer to report for specific site)refer to report for address and phone number HEP C AB 0.1 {s/co_ratio} (Normal) Range: 0.0-0.9 Comments: Negative: < 0.8 Indeterminate: 0.8 - 0.9 Positive: > 0.9 The CDC recommends that a positive HCV antibody result be followed up with a HCV Nucleic Acid Amplification test (452379). :23 Immunoglobulins G/A/M Comments: Is Patient Fasting? [facility] (refer to report for specific site)refer to report for address and phone number IMMUNOGL M 202 mg/dL (Normal) Range: 26-217 IMMUNO A 165 mg/dL (Normal) Range: 87-352 IMMUNO G 1092 mg/dL (Normal) Range: 700-1600 30-Zjz-137017:18 CBC-Complete Blood Cnt No Diff Comments: [facility] [address] [place], [place], [id number] MPV 11.1 fL (Normal) Range: 6.2-12.0 PLT 209 K/mm3 (Normal) Range: 150-450 RDW SD 57.7 fL (Abnormal) Range: 35.1-43.9 RDW CV 15.0 % (Abnormal) Range: 11.6-14.6 MCHC 33.6 {g/gl} (Normal) Range: 32-36 MCH 35.7 pg (Abnormal) Range: 27.0-32.0 MCV 106.3 fL (Abnormal) Range: 81-99 HCT 39.0 % (Normal) Range: 37-47 HGB 13.1 g/dL (Normal) Range: 12.0-15.0 RBC 3.67 {M/mm3} (Abnormal) Range: 4.2-5.4 WBC 4.9 K/mm3 (Normal) Range: 4.4-11.0 39-Xxi-573500:18 Liver Profile Comments: [facility] [address] [place], [place], [id number] D BILI 0.13 mg/dL (Normal) Range: 0.00-0.30 T BILI 0.60 mg/dL (Normal) Range: 0.20-1.00 ALT 56 U/L (Normal) Range: 13-56 Comments: Please note revised ALT reference range hmbonlpqo76/28/2018. ALK P 49 U/L (Normal) Range: 45-117 AST 57 U/L (Abnormal) Range: 15-37 GLOB 3.6 g/dL (Normal) Range: 2.2-4.2 ALB 3.6 g/dL (Normal) Range: 3.2-5.0 T PROT 7.2 g/dL (Normal) Range: 6.4-8.2 74-Jzm-809544:18 Serum Creatinine AND GFR Comments: [facility] [address] [place], [place], [id number] EST GFR - AA 164 mL/min (Normal) Comments: GFR Calc EST GFR 135 mL/min (Normal) Comments: Non- GFR Calc CREAT,SERUM 0.49 mg/dL (Abnormal) Range: 0.55-1.02 Comments: The validity of the calculated GFR AND GFRAA in patients over70 years has not been determined. Clinical correlation isessential. :40 CBC-Complete Blood Cnt No Diff Comments: [facility] [address] [place], [address] MPV 11.0 fL (Normal) Range: 6.2-12.0 PLT 209 K/mm3 (Normal) Range: 150-450 RDW SD 61.8 fL (Abnormal) Range: 35.1-43.9 RDW CV 15.9 % (Abnormal) Range: 11.6-14.6 MCHC 33.3 {g/gl} (Normal) Range: 32-36 MCH 35.7 pg (Abnormal) Range: 27.0-32.0 MCV 107.0 fL (Abnormal) Range: 81-99 HCT 39.9 % (Normal) Range: 37-47 HGB 13.3 g/dL (Normal) Range: 12.0-15.0 RBC 3.73 {M/mm3} (Abnormal) Range: 4.2-5.4 WBC 4.1 K/mm3 (Abnormal) Range: 4.4-11.0 :40 CPK Total, Creatine Kinase Comments: [facility] [address] [place], [address] CPK TOTAL 1418 U/L (Abnormal) Range: 26-192 16-Giv-35705:40 Liver Profile Comments: [facility] [address] [place], [address] D BILI 0.12 mg/dL (Normal) Range: 0.00-0.30 T BILI 0.60 mg/dL (Normal) Range: 0.20-1.00 ALT 59 U/L (Abnormal) Range: 13-56 Comments: Please note revised ALT reference range icqsflind64/28/2018. ALK P 48 U/L (Normal) Range: 45-117 AST 60 U/L (Abnormal) Range: 15-37 GLOB 3.6 g/dL (Normal) Range: 2.2-4.2 ALB 3.4 g/dL (Normal) Range: 3.2-5.0 T PROT 7.0 g/dL (Normal) Range: 6.4-8.2 86-Nfx-93185:40 Serum Creatinine AND GFR Comments: [facility] [address] [place], [place], [address] EST GFR - AA 201 mL/min (Normal) Comments: GFR Calc EST GFR 166 mL/min (Normal) Comments: Non- GFR Calc CREAT,SERUM 0.41 mg/dL (Abnormal) Range: 0.55-1.02 Comments: The validity of the calculated GFR AND GFRAA in patients over70 years has not been determined. Clinical correlation isessential. 34-Dwf-752412:31 CBC-Complete Blood Cnt No Diff Comments: [facility] [address] [place], [place], [phone] MPV 10.5 fL (Normal) Range: 6.2-12.0 PLT 216 K/mm3 (Normal) Range: 150-450 RDW SD 59.0 fL (Abnormal) Range: 35.1-43.9 RDW CV 15.3 % (Abnormal) Range: 11.6-14.6 MCHC 33.5 {g/gl} (Normal) Range: 32-36 MCH 35.6 pg (Abnormal) Range: 27.0-32.0 MCV 106.3 fL (Abnormal) Range: 81-99 HCT 42.1 % (Normal) Range: 37-47 HGB 14.1 g/dL (Normal) Range: 12.0-15.0 RBC 3.96 {M/mm3} (Abnormal) Range: 4.2-5.4 WBC 5.0 K/mm3 (Normal) Range: 4.4-11.0 96-Uhh-727317:31 CPK Total, Creatine Kinase Comments: [facility] [address] [place], [place], [id number] CPK TOTAL 924 U/L (Abnormal) Range: 26-192 19-Jab-605466:31 Liver Profile Comments: [facility] [address] [place], [place], [id number] D BILI 0.12 mg/dL (Normal) Range: 0.00-0.30 T BILI 0.70 mg/dL (Normal) Range: 0.20-1.00 ALT 49 U/L (Normal) Range: 12-78 ALK P 45 U/L (Normal) Range: 45-117 AST 49 U/L (Abnormal) Range: 15-37 GLOB 4.0 g/dL (Normal) Range: 2.2-4.2 ALB 3.6 g/dL (Normal) Range: 3.4-5.0 Comments: Please note revised Albumin AND Globulin reference rangeeffective 2017. T PROT 7.6 g/dL (Normal) Range: 6.4-8.2 10-Vpr-360359:31 Serum Creatinine AND GFR Comments: [facility] [address] [place], [place], [address] EST GFR - AA 142 mL/min (Normal) Comments: GFR Calc EST GFR 117 mL/min (Normal) Comments: Non- GFR Calc CREAT,SERUM 0.56 mg/dL (Normal) Range: 0.55-1.02 Comments: The validity of the calculated GFR AND GFRAA in patients over70 years has not been determined. Clinical correlation isessential. 06-Btc-34935:18 CBC-Complete Blood Cnt No Diff Comments: [facility] [address] [place], [place], [address] MPV 10.6 fL (Normal) Range: 6.2-12.0 PLT 227 K/mm3 (Normal) Range: 150-450 RDW SD 58.0 fL (Abnormal) Range: 35.1-43.9 RDW CV 15.1 % (Abnormal) Range: 11.6-14.6 MCHC 35.3 {g/gl} (Normal) Range: 32-36 MCH 36.8 pg (Abnormal) Range: 27.0-32.0 MCV 104.1 fL (Abnormal) Range: 81-99 HCT 38.5 % (Normal) Range: 37-47 HGB 13.6 g/dL (Normal) Range: 12.0-15.0 RBC 3.70 {M/mm3} (Abnormal) Range: 4.2-5.4 WBC 5.3 K/mm3 (Normal) Range: 4.4-11.0 :18 CPK Total, Creatine Kinase Comments: [facility] [address] [place], [place], [id number] CPK TOTAL 1718 U/L (Abnormal) Range: 26-192 :18 Liver Profile Comments: [facility] [id number] [place], [place], [id number] D BILI 0.14 mg/dL (Normal) Range: 0.00-0.30 T BILI 0.60 mg/dL (Normal) Range: 0.20-1.00 ALT 58 U/L (Normal) Range: 12-78 ALK P 48 U/L (Normal) Range: 45-117 AST 60 U/L (Abnormal) Range: 15-37 GLOB 3.7 g/dL (Normal) Range: 2.2-4.2 ALB 3.5 g/dL (Normal) Range: 3.4-5.0 Comments: Please note revised Albumin AND Globulin reference rangeeffective 2017. T PROT 7.2 g/dL (Normal) Range: 6.4-8.2 :18 Serum Creatinine AND GFR Comments: [facility] [id number] [place], [place], [id number] EST GFR - AA 175 mL/min (Normal) Comments: GFR Calc EST GFR 145 mL/min (Normal) Comments: Non- GFR Calc CREAT,SERUM 0.46 mg/dL (Abnormal) Range: 0.55-1.02 Comments: The validity of the calculated GFR AND GFRAA in patients over70 years has not been determined. Clinical correlation isessential. [id number] Basic Metabolic Profile (BMP) Comments: [facility] [address] [place], [place], [id number] GAP 9 (Normal) Range: 5-15 CO2 26.0 mmol/L (Normal) Range: 21.0-32.0 CL 103 mmol/L (Normal) Range: 98-107 K 4.1 mmol/L (Normal) Range: 3.5-5.1 NA 138 mmol/L (Normal) Range: 136-145 CA 8.7 mg/dL (Normal) Range: 8.5-10.1 BUN/CRE 23.9 {RATIO} (Abnormal) Range: 10-20 EST GFR - AA 177 mL/min (Normal) Comments: GFR Calc EST GFR 146 mL/min (Normal) Comments: Non- GFR Calc CREAT,SERUM 0.46 mg/dL (Abnormal) Range: 0.55-1.02 Comments: The validity of the calculated GFR AND GFRAA in patients over70 years has not been determined. Clinical correlation isessential. BUN 11 mg/dL (Normal) Range: 7-18 GLU 97 mg/dL (Normal) Range: 70-110 01-Vhl-024893:43 CBC W/Diff, Automated Comments: [facility] [address] [place], [place], [id number] OVALOCYTE RARE (Normal) MACROCYTE 1+ (Normal) PLT MORPH LARGE (Normal) Absolute Lymph 0.30 {X10_3/ul} (Abnormal) Range: 0.83-4.51 Absolute Neut 4.9 {X10_3/uL} (Normal) Range: 2.0-7.7 IM GRAN % 0.200 % (Normal) Range: 0.0-0.9 Comments: IG% - Immature Granulocytes (promyelocytes, myelocytes andmetamyelocytes) > 1% indicates that a LEFT SHIFT is Present. BASO% 0.5 % (Normal) Range: 0-1 EO% 2.0 % (Normal) Range: 0-5 MONO% 3.4 % (Normal) Range: 0-10 LY% 5.4 % (Abnormal) Range: 19-41 NEUT% 88.5 % (Abnormal) Range: 47-70 MPV 10.0 fL (Normal) Range: 6.2-12.0 PLT 214 K/mm3 (Normal) Range: 150-450 RDW SD 62.1 fL (Abnormal) Range: 35.1-43.9 RDW CV 15.9 % (Abnormal) Range: 11.6-14.6 MCHC 32.8 {g/gl} (Normal) Range: 32-36 MCH 35.0 pg (Abnormal) Range: 27.0-32.0 MCV 106.6 fL (Abnormal) Range: 81-99 HCT 40.5 % (Normal) Range: 37-47 HGB 13.3 g/dL (Normal) Range: 12.0-15.0 RBC 3.80 {M/mm3} (Abnormal) Range: 4.2-5.4 WBC 5.5 K/mm3 (Normal) Range: 4.4-11.0 92-Sxz-287539:43 CPK Total, Creatine Kinase Comments: [facility] [address] [place], [place], [phone] CPK TOTAL 1846 U/L (Abnormal) Range: 26-192 88-Hgi-696391:43 Liver Profile Comments: [facility] [address] [place], [place], [id number] D BILI 0.17 mg/dL (Normal) Range: 0.00-0.30 T BILI 0.70 mg/dL (Normal) Range: 0.20-1.00 ALT 60 U/L (Normal) Range: 12-78 ALK P 55 U/L (Normal) Range: 45-117 AST 69 U/L (Abnormal) Range: 15-37 GLOB 3.4 g/dL (Normal) Range: 2.3-3.5 ALB 3.7 g/dL (Normal) Range: 3.4-5.0 T PROT 7.1 g/dL (Normal) Range: 6.4-8.2 31-Vxi-924717:26 Basic Metabolic Profile (BMP) Comments: [facility] [address] [place], [place], [id number] GAP 6 (Normal) Range: 5-15 CO2 27.0 mmol/L (Normal) Range: 21.0-32.0 CL 106 mmol/L (Normal) Range: 98-107 K 4.1 mmol/L (Normal) Range: 3.5-5.1 NA 139 mmol/L (Normal) Range: 136-145 CA 8.9 mg/dL (Normal) Range: 8.5-10.1 BUN/CRE 27.4 {RATIO} (Abnormal) Range: 10-20 EST GFR - AA 207 mL/min (Normal) Comments: GFR Calc EST GFR 171 mL/min (Normal) Comments: Non- GFR Calc CREAT,SERUM 0.40 mg/dL (Abnormal) Range: 0.55-1.02 Comments: The validity of the calculated GFR AND GFRAA in patients over70 years has not been determined. Clinical correlation isessential. BUN 11 mg/dL (Normal) Range: 7-18 GLU 96 mg/dL (Normal) Range: 70-110 36-Kvt-374114:26 CBC W/Diff, Automated Comments: [facility] [address] [place], [place], [phone] Absolute Lymph 0.33 {X10_3/ul} (Abnormal) Range: 0.83-4.51 Absolute Neut 4.5 {X10_3/uL} (Normal) Range: 2.0-7.7 IM GRAN % 0.000 % (Normal) Range: 0.0-0.9 Comments: IG% - Immature Granulocytes (promyelocytes, myelocytes andmetamyelocytes) > 1% indicates that a LEFT SHIFT is Present. BASO% 0.8 % (Normal) Range: 0-1 EO% 2.7 % (Normal) Range: 0-5 MONO% 3.3 % (Normal) Range: 0-10 LY% 6.3 % (Abnormal) Range: 19-41 NEUT% 86.9 % (Abnormal) Range: 47-70 MPV 10.1 fL (Normal) Range: 6.2-12.0 PLT 210 K/mm3 (Normal) Range: 150-450 RDW SD 57.9 fL (Abnormal) Range: 35.1-43.9 RDW CV 15.2 % (Abnormal) Range: 11.6-14.6 MCHC 33.9 {g/gl} (Normal) Range: 32-36 MCH 36.1 pg (Abnormal) Range: 27.0-32.0 MCV 106.5 fL (Abnormal) Range: 81-99 HCT 39.2 % (Normal) Range: 37-47 HGB 13.3 g/dL (Normal) Range: 12.0-15.0 RBC 3.68 {M/mm3} (Abnormal) Range: 4.2-5.4 WBC 5.2 K/mm3 (Normal) Range: 4.4-11.0 63-Nhy-538060:26 CPK Total, Creatine Kinase Comments: [facility] [address] [place], [place], [address] CPK TOTAL 1661 U/L (Abnormal) Range: 26-192 03-Aok-125869:26 Liver Profile Comments: [facility] [address] [place], [place], [phone] D BILI 0.12 mg/dL (Normal) Range: 0.00-0.30 T BILI 0.60 mg/dL (Normal) Range: 0.20-1.00 ALT 54 U/L (Normal) Range: 12-78 ALK P 50 U/L (Normal) Range: 45-117 AST 58 U/L (Abnormal) Range: 15-37 GLOB 3.9 g/dL (Abnormal) Range: 2.3-3.5 ALB 3.6 g/dL (Normal) Range: 3.4-5.0 T PROT 7.5 g/dL (Normal) Range: 6.4-8.2 1-Dld-265672:44 CBC W/Diff, Automated Comments: ADD TO 0503:[id number] TO 0503:N199YlnezhkChristopher V[address] [place], [address] SMEAR COMMENT COMMENT (Normal) Comments: SLIDE SCANNED - LYMPHOPENIA NOTED. Absolute Lymph 0.26 {X10_3/ul} (Abnormal) Range: 0.83-4.51 Absolute Neut 4.9 {X10_3/uL} (Normal) Range: 2.0-7.7 IM GRAN % 0.400 % (Normal) Range: 0.0-0.9 Comments: IG% - Immature Granulocytes (promyelocytes, myelocytes andmetamyelocytes) > 1% indicates that a LEFT SHIFT is Present. BASO% 0.4 % (Normal) Range: 0-1 EO% 2.0 % (Normal) Range: 0-5 MONO% 2.2 % (Normal) Range: 0-10 LY% 4.8 % (Abnormal) Range: 19-41 NEUT% 90.2 % (Abnormal) Range: 47-70 MPV 11.4 fL (Normal) Range: 6.2-12.0 PLT 210 K/mm3 (Normal) Range: 150-450 RDW SD 65.0 fL (Abnormal) Range: 35.1-43.9 RDW CV 16.0 % (Abnormal) Range: 11.6-14.6 MCHC 32.3 {g/gl} (Normal) Range: 32-36 MCH 36.0 pg (Abnormal) Range: 27.0-32.0 MCV 111.7 fL (Abnormal) Range: 81-99 HCT 40.0 % (Normal) Range: 37-47 HGB 12.9 g/dL (Normal) Range: 12.0-15.0 RBC 3.58 {M/mm3} (Abnormal) Range: 4.2-5.4 WBC 5.4 K/mm3 (Normal) Range: 4.4-11.0 2-Wup-772597:42 CPK Total, Creatine Comments: ADD CPK/BMP/SUTAIOY0-1-KLbvuaax[facility] [address] [facility] [address] [place], [place], [phone] Kinase CPK TOTAL 1438 U/L (Abnormal) Range: 26-192 8-Xqu-560807:42 CRP Comments: ADD CPK/BMP/MNWPYPF0-0-IZelvktrCleveland Clinic [facility]ina Hospital [address] [place], [place], [phone] C-REACTIVE PROT 4.67 mg/L (Abnormal) Range: 0.0-3.0 Comments: C-Reactive Protein (CRP) provides useful information for thediagnosis, therapy and monitoring of inflammatory processesand associated diseases. For the evaluation of Relative Riskfor Cardiovascular Dise ase, a High Sensitivity CRP (HSCRP)should be ordered. 5-Trv-[id number]:42 Erythrocyte Sed Rate Comments: [facility] [address] [place], [place], [phone] SED RATE 39 mm/h (Abnormal) Range: 0-30 2-Ono-367806:42 Hepatitis ABC Profile Comments: [facility] (refer to report for specific site)refer to report for address and phone number COMMENT Comment (Normal) Comments: Non reactive HCV antibody screen is consistent with no HCVinfection, unless recent infection is suspected or otherevidence exists to indicate HCV infection.Performed at: - [facility] [address] [id number] Director: Arsh Cuellar PhD, Phone: [phone] HCV Ab <0.1 {s/co_ratio} (Normal) Range: 0.0-0.9 Hep B Michael AB Reactive (Normal) Comments: Non Reactive: Inconsistent with immunity, less than 10 mIU/mL Reactive: Consistent with immunity, greater than 9.9 mIU/mL HEP B CORE,TOT Negative (Normal) HB CORE [id number] Negative (Normal) HB SURF AG Negative (Normal) HEP A AB,T.6726 Positive (Abnormal) HEP A IgM 6734 Negative (Normal) 95-Zxv-650425:35 Basic Metabolic Profile (BMP) Comments: [facility] [address] [facility] [address] [place], [place], [phone] GAP 7 (Normal) Range: 5-15 CO2 26.0 mmol/L (Normal) Range: 21.0-32.0 CL 107 mmol/L (Normal) Range: 98-107 K 4.0 mmol/L (Normal) Range: 3.5-5.1 NA 140 mmol/L (Normal) Range: 136-145 CA 8.4 mg/dL (Abnormal) Range: 8.5-10.1 BUN/CRE 18.1 {RATIO} (Normal) Range: 10-20 EST GFR - AA 186 mL/min (Normal) Comments: GFR Calc EST GFR 154 mL/min (Normal) Comments: Non- GFR Calc CREAT,SERUM 0.44 mg/dL (Abnormal) Range: 0.55-1.02 Comments: The validity of the calculated GFR AND GFRAA in patients over70 years has not been determined. Clinical correlation isessential. BUN 8 mg/dL (Normal) Range: 7-18 GLU 105 mg/dL (Normal) Range: 70-110 28-Uek-684684:35 CBC W/Diff, Automated Comments: [facility] [address] [place], [place], [phone] Absolute Lymph 0.28 {X10_3/ul} (Abnormal) Range: 0.83-4.51 Absolute Neut 4.8 {X10_3/uL} (Normal) Range: 2.0-7.7 IM GRAN % 0.400 % (Normal) Range: 0.0-0.9 Comments: IG% - Immature Granulocytes (promyelocytes, myelocytes andmetamyelocytes) > 1% indicates that a LEFT SHIFT is Present. BASO% 0.4 % (Normal) Range: 0-1 EO% 2.3 % (Normal) Range: 0-5 MONO% 1.3 % (Normal) Range: 0-10 LY% 5.3 % (Abnormal) Range: 19-41 NEUT% 90.3 % (Abnormal) Range: 47-70 MPV 10.9 fL (Normal) Range: 6.2-12.0 PLT 229 K/mm3 (Normal) Range: 150-450 RDW SD 61.8 fL (Abnormal) Range: 35.1-43.9 RDW CV 15.7 % (Abnormal) Range: 11.6-14.6 MCHC 31.9 {g/gl} (Abnormal) Range: 32-36 MCH 34.2 pg (Abnormal) Range: 27.0-32.0 MCV 107.4 fL (Abnormal) Range: 81-99 HCT 40.5 % (Normal) Range: 37-47 HGB 12.9 g/dL (Normal) Range: 12.0-15.0 RBC 3.77 {M/mm3} (Abnormal) Range: 4.2-5.4 WBC 5.3 K/mm3 (Normal) Range: 4.4-11.0 55-Nzs-325515:35 CPK Total, Creatine Kinase Comments: [facility] [address] [place], [place], [phone] CPK TOTAL 2479 U/L (Abnormal) Range: 26-192 07-Fxd-703159:35 Liver Profile Comments: [facility] [address] [facility] [address] [place], [place], [phone] D BILI 0.17 mg/dL (Normal) Range: 0.00-0.30 T BILI 0.90 mg/dL (Normal) Range: 0.20-1.00 ALT 105 U/L (Abnormal) Range: 12-78 ALK P 52 U/L (Normal) Range: 45-117 AST 102 U/L (Abnormal) Range: 15-37 GLOB 3.6 g/dL (Abnormal) Range: 2.3-3.5 ALB 3.5 g/dL (Normal) Range: 3.4-5.0 T PROT 7.1 g/dL (Normal) Range: 6.4-8.2 :33 Basic Metabolic Profile (BMP) Comments: [facility] [address] [place], [place], [phone] GAP 9 (Normal) Range: 5-15 CO2 27.0 mmol/L (Normal) Range: 21.0-32.0 CL 104 mmol/L (Normal) Range: 98-107 K 3.9 mmol/L (Normal) Range: 3.5-5.1 NA 140 mmol/L (Normal) Range: 136-145 CA 8.4 mg/dL (Abnormal) Range: 8.5-10.1 BUN/CRE 18.2 {RATIO} (Normal) Range: 10-20 EST GFR - AA 218 mL/min (Normal) Comments: GFR Calc EST GFR 180 mL/min (Normal) Comments: Non- GFR Calc CREAT,SERUM 0.38 mg/dL (Abnormal) Range: 0.55-1.02 Comments: The validity of the calculated GFR AND GFRAA in patients over70 years has not been determined. Clinical correlation isessential. BUN 7 mg/dL (Normal) Range: 7-18 GLU 94 mg/dL (Normal) Range: 70-110 :33 CBC W/Diff, Automated Comments: [facility] [address] [place], [place], [phone] ANISO 2+ (Normal) Absolute Lymph 0.32 {X10_3/ul} (Abnormal) Range: 0.83-4.51 Absolute Neut 4.2 {X10_3/uL} (Normal) Range: 2.0-7.7 IM GRAN % 0.200 % (Normal) Range: 0.0-0.9 Comments: IG% - Immature Granulocytes (promyelocytes, myelocytes andmetamyelocytes) > 1% indicates that a LEFT SHIFT is Present. BASO% 0.2 % (Normal) Range: 0-1 EO% 2.1 % (Normal) Range: 0-5 MONO% 2.9 % (Normal) Range: 0-10 LY% 6.6 % (Abnormal) Range: 19-41 NEUT% 88.0 % (Abnormal) Range: 47-70 MPV 9.7 fL (Normal) Range: 6.2-12.0 PLT 242 K/mm3 (Normal) Range: 150-450 RDW SD 60.7 fL (Abnormal) Range: 35.1-43.9 RDW CV 15.5 % (Abnormal) Range: 11.6-14.6 MCHC 32.7 {g/gl} (Normal) Range: 32-36 MCH 35.0 pg (Abnormal) Range: 27.0-32.0 MCV 106.8 fL (Abnormal) Range: 81-99 HCT 39.4 % (Normal) Range: 37-47 HGB 12.9 g/dL (Normal) Range: 12.0-15.0 RBC 3.69 {M/mm3} (Abnormal) Range: 4.2-5.4 WBC 4.8 K/mm3 (Normal) Range: 4.4-11.0 8-Qjy-920617:33 CPK Total, Creatine Kinase Comments: [facility] [address] [place], [place], [address] CPK TOTAL 2987 U/L (Abnormal) Range: 26-192 9-Ntp-486185:33 Liver Profile Comments: [facility] [address] [place], [place], [address] D BILI 0.09 mg/dL (Normal) Range: 0.00-0.30 T BILI 0.60 mg/dL (Normal) Range: 0.20-1.00 ALT 120 U/L (Abnormal) Range: 12-78 ALK P 62 U/L (Normal) Range: 45-117 AST 115 U/L (Abnormal) Range: 15-37 GLOB 3.6 g/dL (Abnormal) Range: 2.3-3.5 ALB 3.5 g/dL (Normal) Range: 3.4-5.0 T PROT 7.1 g/dL (Normal) Range: 6.4-8.2 94-Kcu-229396:54 Basic Metabolic Profile (BMP) Comments: [facility] [address] [place], [place], [phone] GAP 11 (Normal) Range: 5-15 CO2 25.0 mmol/L (Normal) Range: 21.0-32.0 CL 107 mmol/L (Normal) Range: 98-107 K 3.7 mmol/L (Normal) Range: 3.5-5.1 NA 143 mmol/L (Normal) Range: 136-145 CA 8.6 mg/dL (Normal) Range: 8.5-10.1 BUN/CRE 21.9 {RATIO} (Abnormal) Range: 10-20 EST GFR - AA 179 mL/min (Normal) Comments: GFR Calc EST GFR 148 mL/min (Normal) Comments: Non- GFR Calc CREAT,SERUM 0.46 mg/dL (Abnormal) Range: 0.55-1.02 Comments: The validity of the calculated GFR AND GFRAA in patients over70 years has not been determined. Clinical correlation isessential. BUN 10 mg/dL (Normal) Range: 7-18 GLU 102 mg/dL (Normal) Range: 70-110 31-Spn-959338:54 CBC W/Diff, Automated Comments: [facility] [address] [facility] [address] [place], [place], [phone] POIK RARE (Normal) PLT EST ADEQUATE (Normal) SMEAR COMMENT SCANNED (Normal) Absolute Lymph 0.26 {X10_3/ul} (Abnormal) Range: 0.83-4.51 Absolute Neut 4.6 {X10_3/uL} (Normal) Range: 2.0-7.7 IM GRAN % 0.200 % (Normal) Range: 0.0-0.9 Comments: IG% - Immature Granulocytes (promyelocytes, myelocytes andmetamyelocytes) > 1% indicates that a LEFT SHIFT is Present. BASO% 0.4 % (Normal) Range: 0-1 EO% 2.2 % (Normal) Range: 0-5 MONO% 2.4 % (Normal) Range: 0-10 LY% 5.1 % (Abnormal) Range: 19-41 NEUT% 89.7 % (Abnormal) Range: 47-70 MPV 10.0 fL (Normal) Range: 6.2-12.0 PLT 230 K/mm3 (Normal) Range: 150-450 RDW SD 56.5 fL (Abnormal) Range: 35.1-43.9 RDW CV 14.9 % (Abnormal) Range: 11.6-14.6 MCHC 33.8 {g/gl} (Normal) Range: 32-36 MCH 36.2 pg (Abnormal) Range: 27.0-32.0 MCV 107.1 fL (Abnormal) Range: 81-99 HCT 39.1 % (Normal) Range: 37-47 HGB 13.2 g/dL (Normal) Range: 12.0-15.0 RBC 3.65 {M/mm3} (Abnormal) Range: 4.2-5.4 WBC 5.1 K/mm3 (Normal) Range: 4.4-11.0 46-Lfl-699098:54 CPK Total, Creatine Kinase Comments: [address], [phone] CPK TOTAL 1840 U/L (Abnormal) Range: 26-192 01-Wac-213855:54 Liver Profile Comments: [address], [id number] D BILI 0.13 mg/dL (Normal) Range: 0.00-0.30 T BILI 0.50 mg/dL (Normal) Range: 0.20-1.00 ALT 70 U/L (Normal) Range: 12-78 ALK P 56 U/L (Normal) Range: 45-117 AST 76 U/L (Abnormal) Range: 15-37 GLOB 3.7 g/dL (Abnormal) Range: 2.3-3.5 ALB 3.5 g/dL (Normal) Range: 3.4-5.0 T PROT 7.2 g/dL (Normal) Range: 6.4-8.2 07-Kje-941840:55 TEMPORAL ARTERY BX See Note (Normal) Comments: [address], [phone] Comments: Patient: SYLVIA RAMIREZ : 1955 (60/F) Acct Num: [id number] Phys: Keri HERRING,Lyndon Unit Num: [id number] Loc: [facility] Specimen: [id number] Received: 01/20/16 - 1814 Spec Type : TEMPORAL TISSUES TISSUES: COMMENT Elastic stain with matched control is used in the evaluation of the specimen. GROSS DESCRIPTION Received is one container labeled with the pat ient's name and designated left temporal artery. The specimen consists of a single elongated fragment of wiley tissue measuring 0.5 x <0.1 x <0.1 cm. The specimen is totally submitted in oneca ette for post fixation serial sectioning. / AM:rickie 01/21/16 TC:5 CPT:00715, 73441 HEADER OPERATION: Left temporal artery biopsy PRE-OP DIAGNOSIS: Increased sed. rate; possible temporal arteri tis; S/P left temporal artery biopsy TISSUE SUBMITTED: Portion of left temporal artery MICROSCOPIC DESCRIPTION Slides are reviewed. MICROSCOPIC DIAGNOSIS Left temporal artery, biopsy: Negative for giant cell arteritis. Mild intimal hyperplasia. SJ:rickie 01/22/16 Signed Hi Hernandez 01/22/16 <signature on file> 92-Qqh-10102:05 CBC W/Diff, Automated Comments: Order Date: 01/10/16Order Date: [facility]16[facility] [address] [place], [place], [phone] SMEAR COMMENT SCANNED (Normal) Absolute Lymph 0.26 {X10_3/ul} (Abnormal) Range: 0.83-4.51 Absolute Neut 5.6 {X10_3/uL} (Normal) Range: 2.0-7.7 IM GRAN % 0.200 % (Normal) Range: 0.0-0.9 Comments: IG% - Immature Granulocytes (promyelocytes, myelocytes andmetamyelocytes) > 1% indicates that a LEFT SHIFT is Present. BASO% 0.3 % (Normal) Range: 0-1 EO% 1.1 % (Normal) Range: 0-5 MONO% 4.8 % (Normal) Range: 0-10 LY% 4.1 % (Abnormal) Range: 19-41 NEUT% 89.5 % (Abnormal) Range: 47-70 MPV 10.3 fL (Normal) Range: 6.2-12.0 PLT 219 K/mm3 (Normal) Range: 150-450 RDW SD 61.2 fL (Abnormal) Range: 35.1-43.9 RDW CV 16.0 % (Abnormal) Range: 11.6-14.6 MCHC 34.2 {g/gl} (Normal) Range: 32-36 MCH 35.9 pg (Abnormal) Range: 27.0-32.0 MCV 105.2 fL (Abnormal) Range: 81-99 HCT 36.3 % (Abnormal) Range: 37-47 HGB 12.4 g/dL (Normal) Range: 12.0-15.0 RBC 3.45 {M/mm3} (Abnormal) Range: 4.2-5.4 WBC 6.3 K/mm3 (Normal) Range: 4.4-11.0 :05 CRP Comments: Order Date: 01/10/16Order Date: 01/10/16[facility] [address] [place], [place], [address] C-REACTIVE PROT 192.00 mg/L (Abnormal) Range: 0.0-3.0 Comments: C-Reactive Protein (CRP) provides useful information for thediagnosis, therapy and monitoring of inflammatory processesand associated diseases. For the evaluation of Relative Riskfor Cardiovascular Dise ase, a High Sensitivity CRP (HSCRP)should be ordered. :05 Erythrocyte Sed Rate Comments: Order Date: 01/10/16Order Date: 01/10/16[facility] [address] [place] [place], [address] SED RATE 79 mm/h (Abnormal) Range: 0-30 :46 Basic Metabolic Profile (BMP) Comments: [facility] [address] [place], [address] GAP 3 (Abnormal) Range: 5-15 CO2 27.0 mmol/L (Normal) Range: 21.0-32.0 CL 108 mmol/L (Abnormal) Range: 98-107 K 4.2 mmol/L (Normal) Range: 3.5-5.1 NA 138 mmol/L (Normal) Range: 136-145 CA 8.8 mg/dL (Normal) Range: 8.5-10.1 BUN/CRE 14.6 {RATIO} (Normal) Range: 10-20 Estimated CRCL 71.72 ml/min (Normal) EST GFR - AA 112 mL/min (Normal) Comments: GFR Calc EST GFR 93 mL/min (Normal) Comments: Non- GFR Calc CREAT,SERUM 0.69 mg/dL (Normal) Range: 0.55-1.20 Comments: The validity of the calculated GFR AND GFRAA in patients over70 years has not been determined. Clinical correlation isessential. BUN 10 mg/dL (Normal) Range: 7-18 GLU 111 mg/dL (Abnormal) Range: 70-110 Comments: Fasting Glucose result from 110 to <126 mg/dLsuggests IMPAIRED HOMEOSTASIS per A.D.A. criteria. 77-Wmc-757100:46 CBC W/Diff, Automated Comments: [facility] [address] [place], [place], [id number] ANISO 1+ (Normal) PLT EST ADEQUATE (Normal) SMEAR COMMENT SCANNED (Normal) Absolute Lymph 0.21 {X10_3/ul} Range: 0.83-4.51 (Abnormal) Absolute Neut 4.7 {X10_3/uL} Range: 2.0-7.7 (Normal) IM GRAN % 0.200 % (Normal) Range: 0.0-0.9 Comments: IG% - Immature Granulocytes (promyelocytes, myelocytes andmetamyelocytes) > 1% indicates that a LEFT SHIFT is Present. BASO% 0.2 % (Normal) Range: 0-1 EO% 1.0 % (Normal) Range: 0-5 MONO% 2.2 % (Normal) Range: 0-10 LY% 4.1 % (Abnormal) Range: 19-41 NEUT% 92.3 % (Abnormal) Range: 47-70 MPV 10.0 fL (Normal) Range: 6.2-12.0 PLT 225 K/mm3 (Normal) Range: 150-450 RDW SD 60.9 fL (Abnormal) Range: 35.1-43.9 RDW CV 16.1 % (Abnormal) Range: 11.6-14.6 MCHC 32.5 {g/gl} (Normal) Range: 32-36 MCH 33.5 pg (Abnormal) Range: 27.0-32.0 MCV 103.1 fL (Abnormal) Range: 81-99 HCT 39.7 % (Normal) Range: 37-47 HGB 12.9 g/dL (Normal) Range: 12.0-15.0 RBC 3.85 {M/mm3} Range: 4.2-5.4 (Abnormal) WBC 5.1 K/mm3 (Normal) Range: 4.4-11.0 : NEUROMA - See Note (Normal) Comments: [facility] [address] [place], [place], [address] 00 FOUNTAIN'S/TRAUMATIC Comments: Patient: SYLVIA RAMIREZ : 1955 (60/F) Acct Num: [id number] Phys: Omari Quinones DPMrey Unit Num: [id number] Loc: [facility] [place] Specimen: [id number] Received: 04/15/15 - 0755 Spec Type: N EUROMA TISSUES TISSUES: GROSS DESCRIPTION Received is one container labeled with the patient name and designated right third intermetatarsal space neuroma. The specimen consists of multiple pieces of wiley-yellow soft tissue measuring in aggregate 2.5 x 2 x 0.3 cm. The specimenis totally submitted in one cassette. 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 MICROSCOPIC DIAGNOSIS Soft tissue of right hand, third intermetatarsal space, excision: Consistent with neuroma. AM: 04/16/15 Signed [facility] 04/16/15 <signature on file> : BREAST BIOPSY (CHOOSE See Note (Normal) Comments: [facility] [address] [place], [address] 10 SITE) Comments: Patient: SYLVIA RAMIREZ : 1955 (59/F) Acct Num: [id number] Phys: Preeti HERRING,Jaxon Unit Num: [id number] Loc: LABSPEC Specimen: [id number] Received: 02/06/151614 Spec Type: BREAST BX TISSUES TISSUES: COMMENT Reference is made to the patient's previous specimen, ([id number]) left breast, mastectomy/lumpectomy with diagnosis of invasive lobular carcinoma. GROSS DESCRIPTION Received is one container labeled with the patient name and designated needle core biopsy. The specimen consists of two irregular and elongated fragments oftan-white soft tis gloria measuring in aggregate 2.2 x 0.2 x 0.1 cm. The specimen is totally submitted in one cassette. / AM: 02/07/15 TC:5 CPT: 16698 HEADER OPERATION: U/S guided core biopsy left breast PRE-OP DIAGNOSIS: Abnormal mammogram R92.8 TISSUE SUBMITTED: Needle core biopsy left breast ISCHEMIC TIME: 5 seconds MICROSCOPIC DESCRIPTION Slides are reviewed. MICROSCOPIC DIAGNOSIS Left br east, U/S guided core biopsy: Extensive dense fibrosis and fibrocystic changes. Negative for atypia or malignancy in the submitted specimen. SJ: 02/08/15 Signed Hi Hernandez 02/08/15 <signature on file> :45 LIPID VLDL 12 mg/dL (Normal) Range: 5-40 LDL 132 mg/dL (Abnormal) Range: 0-130 HDL 69 mg/dL (Normal) Comments: Reference RangeHDL <40 mg/dL Low HDL CholesterolHDL >or= 60 mg/dL High HDL Cholesterol TRIG 59 mg/dL (Normal) Range: 0-199 Comments: Serum Triglycerides Reference IntervalNormal <150 mg/dLBorderline high 150 - 199 mg/dLHigh 200 - 499 mg/ dLVery High > or = 500 mg/dL CHOL 213 mg/dL (Abnormal) Comments: <200 mg/dL [id number] mg/dL Borderline>240 mg/dL High Risk [id number] PARATHORMONE (98024) Comments: PATIENT NOT FASTINGPERFORMED BY: CB [facility] [address] [place] [id number] Information: R88254,2ND ORDER NO DRAW F EE PTH, Intact 23 pg/mL (Normal) Range: 15-65 [id number]-Spp-[id number]:02 TSH (THYROID STIMULATING Comments: PATIENT NOT FASTINGPERFORMED BY: CB [facility] [id number] [place] [id number] HORMONE) (80580) TSH 0.733 {uIU/mL} (Normal) Range: 0.450-4.500 06-Nfe-924958:02 CALCIFEDIOL (84687) Comments: PATIENT NOT FASTINGPERFORMED BY: CB [facility] [id number] [place] [id number] Vitamin D, 25-Hydroxy 28.9 ng/mL (Abnormal) Range: 30.0-100.0 Comments: Vitamin D deficiency has been defined by the [employer] and an Endocrine Society practice guideline as alevel of serum 25-OH vitamin D less than 20 ng/mL (1,2).The Endocrine Society went on to further define vitamin Dinsufficiency as a level between 21 and 29 ng/mL (2).1. IOM ([place] [employer]). 2010. Dietary reference intakes for calcium and D. [place]: The National Academies Press.2. Fernie MF, Saida NC, Esdras JIMENEZ, et al. Evaluation, treatment, and prevention of vitamin D deficiency: an Endocrine Society clinical practice guideline. JCEM. 2010; 96(7):1911-30. 50-Dsz-814416:02 METABOLIC PANEL, Comments: PATIENT NOT FASTINGPERFORMED BY: CB [facility] Nxeemb7[address] RoadDublin [place] [id number] Information: [id number] COMPREHENSIVE (68044) ALT (SGPT) 77 [iU]/L (Abnormal) Range: 0-32 AST (SGOT) 90 [iU]/L (Abnormal) Range: 0-40 Alkaline Phosphatase, S 74 [iU]/L (Normal) Range: 39-117 Bilirubin, Total 0.4 mg/dL (Normal) Range: 0.0-1.2 A/G Ratio 1.8 (Normal) Range: 1.1-2.5 Globulin, Total 2.3 g/dL (Normal) Range: 1.5-4.5 Albumin, Serum 4.1 g/dL (Normal) Range: 3.5-5.5 Protein, Total, Serum 6.4 g/dL (Normal) Range: 6.0-8.5 Calcium, Serum 9.3 mg/dL (Normal) Range: 8.7-10.2 Carbon Dioxide, Total 21 mmol/L (Normal) Range: 18-29 Chloride, Serum 99 mmol/L (Normal) Range: 97-108 Potassium, Serum 4.4 mmol/L (Normal) Range: 3.5-5.2 Sodium, Serum 137 mmol/L (Normal) Range: 134-144 BUN/Creatinine Ratio 26 (Abnormal) Range: 9-23 eGFR If Africn Am 126 mL/min/1.73 (Normal) eGFR If NonAfricn Am 109 mL/min/1.73 (Normal) Creatinine, Serum 0.47 mg/dL (Abnormal) Range: 0.57-1.00 BUN 12 mg/dL (Normal) Range: 6-24 Glucose, Serum 110 mg/dL (Abnormal) Range: 65-99 69-Ggb-140012:28 CBCD Comments: NO CHARGE REDRAW ANC 7.5 {X10_3/uL} (Normal) Range: 2.0-7.7 IG% 0.100 % (Normal) Range: 0.0-0.9 Comments: IG% - Immature Granulocytes (promyelocytes, myelocytes andmetamyelocytes) > 1% indicates that a LEFT SHIFT is Present. B% 0.4 % (Normal) Range: 0-1 E% 2.5 % (Normal) Range: 0-5 M% 3.2 % (Normal) Range: 0-10 L% 6.1 % (Abnormal) Range: 19-41 MPV 10.2 fL (Normal) Range: 6.2-12.0 N% 87.7 % (Abnormal) Range: 47-70 PLT 304 K/mm3 (Normal) Range: 150-450 RDWSD 47.0 fL (Abnormal) Range: 35.1-43.9 RDWCV 14.4 % (Normal) Range: 11.6-14.6 MCH 30.5 pg (Normal) Range: 27.0-32.0 MCHC 33.6 {g/gl} (Normal) Range: 32-36 MCV 90.7 fL (Normal) Range: 81-99 HCT 39.9 % (Normal) Range: 37-47 HGB 13.4 g/dL (Normal) Range: 12.0-15.0 RBC 4.40 {M/mm3} (Normal) Range: 4.2-5.4 WBC 8.6 K/mm3 (Normal) Range: 4.4-11.0 43-Ecz-996934:29 SED Comments: NO CHARGE REDRAW tSEDRATE 20 mm/h (Normal) Range: 0-30 61-Wfc-775658:42 Urinalysis, Office (56677) UA - LEUKOCYTE ESTERASE Negative (Normal) UA - NITRITE Negative (Normal) URINE UROBILINGN MARIE TIMED Normal mg/dL (Normal) UA - PROTEIN Negative mg/dL (Normal) UA - PH 7 (Normal) UA - BLOOD Negative (Normal) UA - SPECIFIC GRAVITY 1.020 (Normal) UA - KETONES Small mg/dL (Normal) UA - BILIRUBIN Negative (Normal) UA - GLUCOSE Negative (Normal) 5-Qyk-755924:38 Systemic Lupus Profile Comments: PATIENT NOT FASTINGPERFORMED BY: [facility] [id number] [facility] [id number] Information: [id number] (06043) Anti-DNA (DS) Ab Qn 3 {IU/mL} (Normal) Range: 0-9 Comments: Negative <5 Equivocal 5 - 9 Positive >9 Sjogren's Anti-SS-B 0.2 {AI} (Normal) Range: 0.0-0.9 Sjogren's Anti-SS-A <0.2 {AI} (Normal) Range: 0.0-0.9 Antichromatin Antibodies <0.2 {AI} (Normal) Range: 0.0-0.9 RA Latex Turbid. 8.4 {IU/mL} (Normal) Range: 0.0-13.9 Iraheta Antibodies <0.2 {AI} (Normal) Range: 0.0-0.9 CASHIER HOST/HOSTESS Antibodies <0.2 {AI} (Normal) Range: 0.0-0.9 0-Mow-645530:05 HAND MIN 3 VIEWS Radiology Report See Note Comments: PROCEDURE: X-RAY - RIGHT HAND REASON FOR EXAM: Female, 57 years old. Swelling and pain. TECHNIQUE: Three view(s) of the hand. COMPARISON: None. FINDINGS:Flori (Normal) l visualized carpal bones and carpal articulations. Normal carpometacarpal articulation of the thumb. Normal second throughfifth carpometacarpal joints. Normal metacarpi. Normal metacarpophalangeal (M CP) joints. Normalvisualized phalanges and interphalangeal joints. Soft tissue swelling. IMPRESSION:Soft tissue swelling. Signed:Tobin Sawant M.D.November 25 3 at 2:42:01 PM [id number] Signed GP/GP If you are the referring physician and would like to consult with theradiologist who provided this interpretation, please contact Amber calixto M.D. at [phone]. If this radiologist is unavailable, youwill be directed to another radiologist to assist. If you are a patient with a question regarding this report, pleasecontactyour referr ing physician directly. Professional Interpretation Provided By: [employer], Phone , These documents contain legally protected and confidential healthinformation intended only for the use of the individual or entity namedabove. If you are not the intended recipient, you are hereby notifiedthatany disclosure, copying, distribution, or other use of these documents isstrict ly prohibited. If you have received this information in error,pleasenotify the sender immediately and arrange for the return or destructionofthese documents. Dictated on 11/25/12 1442 by Stacy Sawant MDribed on 11/25/12 1454 by ITS IMPORTSign by Tobin Sawant MD on 11/25/12 1454 Sign by: Tobin Sawant MD 0-Rhv-409483:04 HAND MIN 3 VIEWS Radiology Report See Note Comments: PROCEDURE: X-RAY - LEFT HAND REASON FOR EXAM: Female, 57 years old. Swelling and joint pain. TECHNIQUE: Three view(s) of the hand. COMPARISON: None. FINDINGS: (Normal) Normal visualized carpal bones and carpal articulations. Normal carpometacarpal articulation of the thumb. Normal second throughfifth carpometacarpal joints. Normal metacarpi. Normal metacarpophalange al (MCP) joints. Normalvisualized phalanges and interphalangeal joints. Soft tissue swelling. IMPRESSION:Soft tissue swelling. Signed:Tobin Sawant M.D.November at 2:42:30 PM [id number] Signed GP/GP If you are the referring physician and would like to consult with theradiologist who provided this interpretation, please contact Tobin Sawant M.D. at [phone]. If this radiologist is unavailable, youwill be directed to another radiologist to assist. If you are a patient with a question regarding this report, pleasecontactyour [facility] physician directly. Professional Interpretation Provided By: [employer], Phone , These documents contain legally protected and confidential healthinformation inte nded only for the use of the individual or entity namedabove. If you are not the intended recipient, you are hereby notifiedthatany disclosure, copying, distribution, or other use of these documents iss trictly prohibited. If you have received this information in error,pleasenotify the sender immediately and arrange for the return or destructionofthese documents. Dictated on 11/25/12 1442 by Vera Ornelas MDscribed on 11/25/12 1453 by ITS IMPORTSign by Tobin Sawant MD on 11/25/12 1454 Sign by: Tobin Sawant MD 6-Ntu-067860:04 WRIST MIN 3 VIEWS Radiology See Note Comments: PROCEDURE: X-RAY - RIGHT WRIST REASON FOR EXAM: Female, 57 years old. Pain and swelling. TECHNIQUE: Three views of the wrist were obtained. COMPARISON: None. Report (Normal) FINDINGS:Normal visualized distal radius and ulna. Normal radiocarpalarticulation.Normal distal radioulnar articulation. Normal carpal bones. Normalcarpal articulations. Normal carpometacarpal articu lation of the thumb. Normal second throughfifth carpometacarpal articulations. Normal visualized metacarpal bones. The soft tissue structures are unremarkable. IMPRES JOSE:Normal x-ray examination of the wrist. Signed:Tobin Sawant M.D.November 25, 2012 at 2:43:33 PM [id number] Signed GP/GP If you are the referring physician and would like to co nsult with theradiologist who provided this interpretation, please contact Jaz Falk at [phone]. If this radiologist is unavailable, youwill be directed to another radiologist to [facility] ling. If you are a patient with a question regarding this report, pleasecontactyour referring physician directly. Professional Interpretation Provided By: [employer], Phone ,Fax These documents contain legally protected and confidential healthinformation intended only for the use of the individual or entity namedabove. If you are not the intended recipient, you are hereby not ifiedthatany disclosure, copying, distribution, or other use of these documents isstrictly prohibited. If you have received this information in error,pleasenotify the sender immediately and arrange for the return or destructionofthese documents. Dictated on 11/25/12 1443 by Ru Sawant MDranscribed on 11/25/12 1455 by ITS IMPORTSign by Tobin Sawant MD on 11/25/12 1456 Sign by: Tobin Sawant MD 9-Gry-953296:04 WRIST MIN 3 VIEWS Radiology See Note Comments: PROCEDURE: X-RAY - LEFT WRIST REASON FOR EXAM: Female, 57 years old. Pain and swelling. TECHNIQUE: Three views of the wrist were obtained. COMPARISON: None. F Report (Normal) INDINGS:Normal visualized distal radius and ulna. Normal radiocarpalarticulation.Normal distal radioulnar articulation. Normal carpal bones. Normalcarpal articulations. Normal carpometacarpal articul ation of the thumb. Normal second throughfifth carpometacarpal articulations. Normal visualized metacarpal bones. The soft tissue structures are unremarkable. IMPRESS ION:Normal x-ray examination of the wrist. Signed:Tobin Sawant M.D.November 25, 2012 at 2:42:31 PM [id number] Signed GP/GP If you are the referring physician and would like to con sult with theradiologist who provided this interpretation, please contact Jaz Falk at [phone]. If this radiologist is unavailable, youwill be directed to another radiologist to ed slaughter. If you are a patient with a question regarding this report, pleasecontactyour referring physician directly. Professional Interpretation Provided By: [employer], Phone , These documents contain legally protected and confidential healthinformation intended only for the use of the individual or entity namedabove. If you are not the intended recipient, you are hereby noti fiedthatany disclosure, copying, distribution, or other use of these documents isstrictly prohibited. If you have received this information in error,pleasenotify the sender immediately and arrange for t he return or destructionofthese documents. Dictated on 11/25/12 1442 by Loly HERRING,CurtriRomeoranscribed on 11/25/12 145 by ITS IMPORTSign by Tobin Sawant MD on 11/25/121456 Sign by: Tobin Sawant MD 3-Qav-244295:50 CCP ANTIBODY (52418) Comments: PATIENT NOT FASTINGPERFORMED BY: ShopifyMeadowlands Hospital Medical CenterNxcdac6860 [facility] [id number] BY: [address] [id number] CCP Antibodies IgG/IgA 21 {units} (Abnormal) Range: 0-19 Comments: Negative <20 Weak positive 20 - 39 Moderate positive 40 - 59 Strong positive >59 3-Qhd-081813:50 SED RATE ERYTHROCYTE Comments: PATIENT NOT FASTINGPERFORMED BY: BioAegis TherapeuticsMeadowlands Hospital Medical CenterLvykwu0074 [facility] [id number] BY: [address] [id number] (12002) Sedimentation Rate-Westergren 2 mm/h (Normal) Range: 0-40 1-Tsv-441167:50 C-REACTIVE PROTEIN (76471) Comments: PATIENT NOT FASTINGPERFORMED BY: BioAegis TherapeuticsMeadowlands Hospital Medical CenterOencwd1194 [facility] [id number] BY: [address] [id number] C-Reactive Protein, Quant 1.6 mg/L (Normal) Range: 0.0-4.9 5-Mgw-010689:50 TSH (44524) Comments: PATIENT NOT FASTINGPERFORMED BY: [facility]6370 [facility] [id number] BY: [address] [id number] TSH 1.410 {uIU/mL} (Normal) Range: 0.450-4.500 3-Qbt-700841:50 RHEUMATOID FACTOR-QUANT Comments: PATIENT NOT FASTINGPERFORMED BY: [facility] 8571870 [facility] [id number] BY: [address] [id number] (03801) RA Latex Turbid. 5.4 {IU/mL} (Normal) Range: 0.0-13.9 7-Ope-260220:50 PATRICK (ANTINUCLEAR ANTIBODY) Comments: PATIENT NOT FASTINGPERFORMED BY: Lab[place] 8571870 [facility] [id number] BY: [address] [id number] (92466) PATRICK Direct Positive (Abnormal) 5-Mhs-119458:50 CBC WITH MANUAL DIFF Comments: PATIENT NOT FASTINGPERFORMED BY: Lab[place] 8571870 [facility] [id number] BY: [address] [id number] Inf ormation: [id number] (75654) Immature Grans (Abs) 0.0 {x10E3/uL} (Normal) Range: 0.0-0.1 Immature Granulocytes 0 % (Normal) Range: 0-2 Baso (Absolute) 0.0 {x10E3/uL} (Normal) Range: 0.0-0.2 Eos (Absolute) 0.1 {x10E3/uL} (Normal) Range: 0.0-0.4 Monocytes(Absolute) 0.4 {x10E3/uL} (Normal) Range: 0.1-1.0 Lymphs (Absolute) 1.1 {x10E3/uL} (Normal) Range: 0.7-4.5 Neutrophils (Absolute) 3.1 {x10E3/uL} (Normal) Range: 1.8-7.8 Basos 1 % (Normal) Range: 0-3 Eos 2 % (Normal) Range: 0-7 Monocytes 9 % (Normal) Range: 4-13 Lymphs 24 % (Normal) Range: 14-46 Neutrophils 64 % (Normal) Range: 40-74 Platelets 225 {x10E3/uL} (Normal) Range: 140-415 RDW 13.6 % (Normal) Range: 12.3-15.4 MCHC 32.9 g/dL (Normal) Range: 31.5-35.7 MCH 30.4 pg (Normal) Range: 26.6-33.0 MCV 93 fL (Normal) Range: 79-97 Hematocrit 44.4 % (Normal) Range: 34.0-46.6 Hemoglobin 14.6 g/dL (Normal) Range: 11.1-15.9 RBC 4.80 {x10E6/uL} (Normal) Range: 3.77-5.28 WBC 4.7 {x10E3/uL} (Normal) Range: 4.0-10.5 7-Qzm-351692:50 METABOLIC PANEL, Comments: PATIENT NOT FASTINGPERFORMED BY: CB [facility] Xohndo8148 [facility] [id number] BY: BN [facility] [address] [id number] [facility] (43911) ALT (SGPT) 22 [iU]/L (Normal) Range: 0-32 AST (SGOT) 21 [iU]/L (Normal) Range: 0-40 Alkaline Phosphatase, S 78 [iU]/L (Normal) Range: 42-107 Bilirubin, Total 0.5 mg/dL (Normal) Range: 0.0-1.2 A/G Ratio 2.1 (Normal) Range: 1.1-2.5 Globulin, Total 2.3 g/dL (Normal) Range: 1.5-4.5 Albumin, Serum 4.8 g/dL (Normal) Range: 3.5-5.5 Protein, Total, Serum 7.1 g/dL (Normal) Range: 6.0-8.5 Calcium, Serum 9.9 mg/dL (Normal) Range: 8.7-10.2 Carbon Dioxide, Total 22 mmol/L (Normal) Range: 19-28 Chloride, Serum 103 mmol/L (Normal) Range: 97-108 Potassium, Serum 3.9 mmol/L (Normal) Range: 3.5-5.2 Sodium, Serum 141 mmol/L (Normal) Range: 134-144 BUN/Creatinine Ratio 16 (Normal) Range: 9-23 eGFR If Africn Am 112 mL/min/1.73 (Normal) eGFR If NonAfricn Am 97 mL/min/1.73 (Normal) Creatinine, Serum 0.68 mg/dL (Normal) Range: 0.57-1.00 BUN 11 mg/dL (Normal) Range: 6-24 Glucose, Serum 93 mg/dL (Normal) Range: 65-99 :49 LIPID,HEALTHPNT VLDL 14 mg/dL (Normal) Range: 5-40 LDL 131 mg/dL (Abnormal) Range: 0-130 HDL 81 mg/dL (Normal) Comments: Reference Range HDL <40 mg/dL Low HDL Cholesterol HDL >or= 60 mg/dL High HDL Cholesterol TRIG 72 mg/dL (Normal) Comments: Serum Triglycerides Reference Interval Normal <150 mg/dL Borderline high 150 - 199 mg/dL High 200 - 499 mg/dL Very High > or = 500 mg/dL CHOL 226 mg/dL (Abnormal) Comments: <200 mg/dL Desirable 200-240 mg/dL Borderline >240 mg/dL High Risk :18 METABOLIC PANEL, COMPREHENSIVE Comments: PATIENT WAS FASTINGPERFORMED BY: LabCoMeadowlands Hospital Medical CenterQbgisn8081 [facility] [id number] (51523) ALT (SGPT) 20 [iU]/L (Normal) Range: 0-40 Alkaline Phosphatase, S 79 [iU]/L (Normal) Range: 25-150 AST (SGOT) 21 [iU]/L (Normal) Range: 0-40 Bilirubin, Total 0.6 mg/dL (Normal) Range: 0.1-1.2 A/G Ratio 2.0 (Normal) Range: 1.1-2.5 Albumin, Serum 4.4 g/dL (Normal) Range: 3.5-5.5 Calcium, Serum 9.3 mg/dL (Normal) Range: 8.7-10.2 Globulin, Total 2.2 g/dL (Normal) Range: 1.5-4.5 Protein, Total, Serum 6.6 g/dL (Normal) Range: 6.0-8.5 Carbon Dioxide, Total 23 mmol/L (Normal) Range: 20-32 Chloride, Serum 104 mmol/L (Normal) Range: 97-108 Potassium, Serum 4.0 mmol/L (Normal) Range: 3.5-5.2 Sodium, Serum 142 mmol/L (Normal) Range: 135-145 BUN/Creatinine Ratio 10 (Normal) Range: 8-27 eGFR AfricanAmerican >59 mL/min/1.73 Comments: Note: Persistent reduction for 3 months or more in an eGFR<60 mL/min/1.73 m2 defines CKD. Patients with eGFR values>/=60 mL/min/1.73 m2 may also have CKD if evidence of persistentproteinuria is (Normal) present. Additional information may be found [email or web address]. Creatinine, Serum 0.73 mg/dL (Normal) Range: 0.57-1.00 eGFR >59 mL/min/1.73 (Normal) BUN 7 mg/dL (Normal) Range: 5-26 Glucose, Serum 93 mg/dL (Normal) Range: 65-99 31-Jul-20099:18 CBC WITH MANUAL DIFF Comments: PATIENT WAS FASTINGPERFORMED BY: [facility]Be[facility]6370 [facility] [id number] Information: [id number] (24106) Baso (Absolute) 0.0 {x10E3/uL} (Normal) Range: 0.0-0.2 Eos (Absolute) 0.1 {x10E3/uL} (Normal) Range: 0.0-0.4 Lymphs (Absolute) 1.0 {x10E3/uL} (Normal) Range: 0.7-4.5 Monocytes(Absolute) 0.3 {x10E3/uL} (Normal) Range: 0.1-1.0 Neutrophils (Absolute) 2.3 {x10E3/uL} (Normal) Range: 1.8-7.8 Basos 1 % (Normal) Range: 0-3 Eos 3 % (Normal) Range: 0-7 Lymphs 26 % (Normal) Range: 14-46 Monocytes 9 % (Normal) Range: 4-13 Neutrophils 61 % (Normal) Range: 40-74 Platelets 197 {x10E3/uL} (Normal) Range: 140-415 MCH 32.7 pg (Normal) Range: 27.0-34.0 MCHC 34.6 g/dL (Normal) Range: 32.0-36.0 RDW 13.6 % (Normal) Range: 11.7-15.0 Hematocrit 42.0 % (Normal) Range: 34.0-44.0 Hemoglobin 14.5 g/dL (Normal) Range: 11.5-15.0 MCV 95 fL (Normal) Range: 80-98 RBC 4.44 {x10E6/uL} (Normal) Range: 3.80-5.10 WBC 3.7 {x10E3/uL} (Abnormal) Range: 4.0-10.5 :18 LIPID PANEL (23907) Comments: PATIENT WAS FASTINGPERFORMED BY: LabCoMeadowlands Hospital Medical CenterGjpqjd7285 [facility] [id number] LDL Cholesterol Calc 128 mg/dL (Abnormal) Range: 0-99 LDL/HDL Ratio 1.4 {ratio_units} (Normal) Range: 0.0-3.2 VLDL Cholesterol Jeffrey 8 mg/dL (Normal) Range: 5-40 HDL Cholesterol 89 mg/dL (Normal) Comments: According to ATP-III Guidelines, HDL-C >59 mg/dL is considered anegative risk factor for CHD. Triglycerides 41 mg/dL (Normal) Range: 0-149 Cholesterol, Total 225 mg/dL (Abnormal) Range: 100-199 :05 RIBS,UNI,MIN 3V,W/PA CHEST Radiology Report See Note (Normal) Comments: Exam Number: [id number] UNILATERAL LEFT RIBS Several views of the left ribs were obtained. HISTORYThis is a 54-year-old female patient with history of left mid chestpain. FINDINGSSurgical clips are seen in the left axillary region in keeping withprior axillary node dissection. There is no evidence of rib fracture.No bony destruction is seen. IMPRESSIONNo significant abnormality is present. Surgical c lips are seen in theleft axillary region in keeping with the prior axillary nodedissection. Reported By: TOBIN SAWANT :04 DORSAL SPINE,3 VIEWS Radiology Report See Note (Normal) Comments: Exam Number: [id number] DORSAL SPINE AP and lateral views were obtained. HISTORYThis is a 54-year-old female patient with history of left posteriorchest pain. FINDINGSThere is evidence of disc space narr owing throughout the dorsal spine.There is no evidence of vertebral compression fracture. No bonydestruction is seen. Reported By: TOBIN SAWANT :36 CBCD BASO% 0.7 % (Normal) Range: 0-1 EO% 2.1 % (Normal) Range: 0-5 HCT 40.0 % (Normal) Range: 37-47 HGB 13.9 g/dL (Normal) Range: 12.0-16.0 LY% 29.7 % (Normal) Range: 19-41 MCH 32.9 pg (Abnormal) Range: 27.0-32.0 MCHC 34.8 g/dL (Normal) Range: 32-36 MCV 94.4 fL (Normal) Range: 81-99 MONO% 10.2 % (Abnormal) Range: 0-10 MPV 9.2 fL (Normal) Range: 6.5-12.0 NEUT% 57.3 % (Normal) Range: 47-70 PLT 181 K/mm3 (Normal) Range: 150-450 RBC 4.23 {M/mm3} (Normal) Range: 4.2-5.4 RDW 12.9 % (Normal) Range: 11.6-14.6 WBC 3.1 K/mm3 (Abnormal) Range: 4.4-11.0 :36 COMP METABOLIC A/G 1.1 {RATIO} (Normal) Range: 0.9-2.4 ALB 3.2 g/dL (Abnormal) Range: 3.4-5.0 ALK P 35 U/L (Abnormal) Range: 50-136 ALT 30 [iU]/L (Normal) Range: 30-65 AST 20 U/L (Normal) Range: 15-37 CA 8.5 mg/dL (Normal) Range: 8.5-10.1 CL 105 mmol/L (Normal) Range: 98-107 CO2 27.8 mmol/L (Normal) Range: 21.0-32.0 Comments: Please Note Reference Interval Change GAP 7 (Normal) Range: 5-15 GLOB 3.0 g/dL (Normal) Range: 2.7-4.2 Comments: Please Note Reference Interval Change K 3.4 mmol/L (Abnormal) Range: 3.5-5.1 NA 140 mmol/L (Normal) Range: 136-145 T BILI 0.42 mg/dL (Normal) Range: 0.00-1.00 BUN 8 mg/dL (Normal) Range: 7-18 BUN/CRE 11.4 {RATIO} (Normal) Range: 10-20 CREAT,SERUM 0.7 mg/dL (Normal) Range: 0.6-1.0 GLU 89 mg/dL (Normal) Range: 70-110 T PROT 6.2 g/dL (Abnormal) Range: 6.4-8.2 :36 ROUTINE UA BILIRUBIN URINE SeeNote (Normal) Comments: Result: NEGATIVE CLARITY CLEAR (Normal) COLOR YELLOW (Normal) GLUCOSE, UR SeeNote (Normal) Comments: Result: NEGATIVE KETONE UR SeeNote mg/dL (Normal) Comments: Result: NEGATIVE LEUK ESTERASE SeeNote (Normal) Comments: Result: NEGATIVE NITRITE UR SeeNote (Normal) Comments: Result: NEGATIVE OCCULT BLOOD-UR 1+ (Abnormal) pH UR 6.5 (Normal) Range: 5.0-8.0 PROT DIPSTX SeeNote (Normal) Comments: Result: NEGATIVE SP.GR. DIPSTX 1.010 (Normal) Range: 1.002-1.030 UROBILI 0.2 EU/dl (Normal) Range: 0.2 - 1.0 Plan of Care Name Dates Details Instructions Nonsmoker : Follow up if no improvement or if symptoms worsen Indication: Nonsmoker Cellulitis of arm : Reviewed Diagnostic Tests Indication: Cellulitis of arm Cellulitis of arm : Reviewed Lab Indication: Cellulitis of arm Nonsmoker : Eprescribed prescriptions (G8553) Indication: Nonsmoker BMI between 19-24,adult : Eprescribed prescriptions (G8553) Indication: BMI between 19-24,adult Thrombophlebitis arm : Eprescribed prescriptions (G8553) Indication: Thrombophlebitis arm Pre-operative general physical examination : Instructions for the Patient Before and After Surgery *: instructions Indication: Pre-operative general physical examination Cough : *URI Treatment Indication: Cough Cough : *URI Symptoms Indication: Cough Breast pain, left : Follow up - Make appt after diagnostic tests Indication: Breast pain, left Knee pain : Knee Injections Indication: Knee pain Knee pain : Bursitis: knee Indication: Knee pain Knee pain : Eprescribed prescriptions (G8553) Indication: Knee pain Knee pain : Reviewed Diagnostic Tests Indication: Knee pain Knee pain : Follow up in 1 week please neida stauffer for Dr. Looney to injedt her knees with steroid. 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 Malnutrition : Diet, Exercise, and Wt loss Indication: Malnutrition Joint pain : Reviewed Lab Indication: Joint pain Joint pain : Reviewed Diagnostic Tests Indication: Joint pain Joint pain : Follow up in 1 week Indication: Joint pain Pain in forearm, unspecified laterality : Carpal Tunnel Injection Indication: Pain in forearm, unspecified laterality Carpal tunnel syndrome, unspecified laterality : Carpal Tunnel Injection Indication: Carpal tunnel syndrome, unspecified laterality Carpal tunnel syndrome, unspecified laterality : Carpal Tunnel Injection Indication: Carpal tunnel syndrome, unspecified laterality Carpal tunnel syndrome, unspecified laterality : Carpal Tunnel Injection Indication: Carpal tunnel syndrome, unspecified laterality Contact dermatitis due to poison farhana : Poison Farhana Education Indication: Contact dermatitis due to poison farhana Carpal tunnel syndrome, unspecified laterality : Carpal Tunnel Injection Indication: Carpal tunnel syndrome, unspecified laterality Carpal tunnel syndrome, unspecified laterality : Carpal Tunnel Injection Indication: Carpal tunnel syndrome, unspecified laterality Carpal tunnel syndrome, unspecified laterality : Carpal Tunnel Injection Indication: Carpal tunnel syndrome, unspecified laterality Planned Observations METABOLIC PANEL, COMPREHENSIVE (71494)Indication: Hyperlipidemia, mild On: :49 Request LIPOPROTEIN, BLD, BY NMR (88983)Indication: Hyperlipidemia, mild On: :49 Request HEPATIC FUNCTION PANEL (39198)Indication: Hyperlipidemia, mild On: Request LIPOPROTEIN, BLD, BY NMR ([id number])Indication: Hyperlipidemia, mild On: Request CBC, Platelets & Auto Diff ([id number])Indication: Headache, occipital On: Request Comments: all labs stat C-Reactive Protein ([id number])Indication: Headache, occipital On: : Request Sed Rate Erythrocyte ([id number])Indication: Headache, occipital On: Request Sed Rate Erythrocyte ([id number])Indication: Headache, occipital On: :09 Request LIPID PANEL ([id number])Indication: Osteoarthrosis, not specified whether generalized/localized, lower leg On: Request Parathyroid Hormone-related Peptide (PTH-rP) ([id number])Indication: Abnormal blood chemistry On: 38-Tou-460117:02 Request METABOLIC PANEL, COMPREHENSIVE ([id number])Indication: Swelling On: 15 Request Comments: Add to standing order to be done today CPK TOTAL & ISOENZYMES ([id number])Indication: Elevated CPK On: :14 Request Comments: repeat today add to standing labs C-Reactive Protein ([id number])Indication: Elevated CPK On: :14 Request Comments: include with standing labs today TSH ([id number])Indication: Swelling On: :12 Request Comments: Add to current standing order for today only Print this for pt MICROALBUMIN URINE QUANT ([id number])Indication: Swelling On: 43 Request MICROALBUMIN: CREATININE RATIO ([id number]) AND ([id number])Indication: Swelling On: :43 Request EXTRCTBL NUCLR ANTGEN EA ([id number]) test code 520407Fmhqwlmpta: Abnormal blood chemistry On: Request ANTI-Sm (ANTI [place] ANTIBODY) (03541) test code 362930Hragnansml: Abnormal blood chemistry On: Request ANTI-CASHIER HOST/HOSTESS (ANTI RIBONUCLEAR PROTEIN ANTIBODY) ([id number]) test code [id number]: Abnormal blood chemistry On: Request DNA ANTIBODY-NATV/DBL ST ([id number]) test code [id number]: Abnormal blood chemistry On: 0-Krt-895229:25 Request URINALYSIS ([id number])Indication: Malignant neoplasm of breast (female) On: :27 Request CBC (Auto) ([id number])Indication: Malignant neoplasm of breast (female) On: :22 Request Metabolic Panel, Comprehensive ([id number])Indication: Malignant neoplasm of breast (female) On: : Request Planned Procedures MAMMOGRAM BREAST BILATERAL On: 21-Mar-2018 Intent SCREENING DIGITAL ([id number])By: Lorena Talbot MD, MD, Dana M INJECTION, PROLIA ([id number])By: Visit, On: 24-Feb-2018 Intent Nurse Comments: [id number] syringer arm, SCMLONG Bone Density StudyBy: Dahiana HERRING, On: 01-Feb-2018 Intent Lorena Hopson MD Comments: due after 03-10-18 INJECTION, PROLIA ([id number])By: On: 14-Jul-2017 Intent Lorena Talbot MD, MD, Dana Comments: lot: [id number]: 09/2019site/route: R arm/SQamt: prefilled syringeVIS signed when applicableBLU Waters INJECTION, PROLIA ([id number])By: On: 17-Dec-2016 Lorena Holbrook MD, MD, Dana Comments: Lot:[id number]:02/11Dose:60mlRoute:sub q Site:r armGiven By:CHARLETTE signed M Radiology - ChestBy: Dahiana HERRING, On: 02-Jul-2016 Intent Lorena Hopson MD Comments: recheck approx. 4 weeks check before 08-03-16 follow up Radiology - Chest- PA and LatBy: On: 02-Jul-2016 Intent Lorena Talbot MD, MD, Dana M Inhaler Demo ([id number])By: Dahiana HERRING, On: 02-Jul-2016 Intent Lorena Hopson MD Aerosol Treatment ([id number])By: On: 02-Jul-2016 Intent Lorena Talbot MD, MD, Dana M INJECTION, PROLIA ([id number])By: On: 12-Jun-2016 Intent Lorena Talbot MD, MD, Dana Comments: lot: [id number]: 08/12site/route: R arm/SQamt: prefilled syringe 60mgVIS signed when applicableBLU Waters LE Arterial Exam - LowerBy: Dahiana On: 02-Apr-2016 Intent Lorena HERRING MD, Dana M Aerosol Treatment ([id number])By: Dewayne On: 04-Mar-2015 Intent Pat GARCIA RIGHT MAMMOGRAM ([id number])By: Dewayne On: 04-Mar-2015 Pat Patel CNP Breast Ultrasound - LeftBy: Dewayne On: 01-Jan-2015 Pat Patel CNP Comments: call results to [facility] at [facility] LEFT MAMMOGRAM ([id number])By: Dewayne On: 01-Jan-2015 Intent Pat GARCIA Comments: call MMontrell Buchanan at [facility] with results Bone Density StudyBy: Dahiana HERRING, On: 31-Jan-2014 Intent Lorena Hopson MD BILATERAL MAMMOGRAMS ([id number])By: On: 31-Jan-2014 Intent Lorena Talbot MD, MD, Dana M Kenalog Injection, 10 mgm On: 05-Dec-2013 Intent ([id number])By: Lorena Talbot MD Comments: lot: [id number]: 04/09site/route: L and R knee/joint injamt: 1cc in each kneeVIS signed when applicablex8 Lorena Talbot MD Echo CompleteBy: Pat Buchanan CNP On: 11-Aug-2013 Intent Eprescribed prescriptions On: 11-Aug-2013 Intent ([id number])By: Pat Buchanan CNP Eprescribed prescriptions On: 18-Jul-2013 Intent ([id number])By: Lorena Talbot MD, MD, Dana M Eprescribed prescriptions On: 08-Jun-2013 Intent ([id number])By: Becky Bryan DO Wax CurettesBy: Becky Bryan DO On: 08-Jun-2013 Intent Ear Irrigation ([id number])By: Randi On: 08-Jun-2013 Intent Becky THOMAS Comments: small amt came out of both ears but still thin film on rim Radiology - Wrist - BilateralBy: On: 25-Nov-2012 Intent Becky Bryan DO Radiology - Hand - BilateralBy: On: 25-Nov-2012 Intent Becky Bryan DO IMMUNIZATION ADMIN ([id number])By: On: 04-May-2012 Intent Katerina Broderick Comments: Lot:[id number]:07-30-13Dose:prefilledRoute:IMSite:R armGiven By:ALYSSA COMPLETE ON THIS DATE IMMUNIZATION ADMIN ([id number])By: On: 09-Jun-2011 Intent Eneida Beth Comments: Lot:[id number]:01/30/13Amt:prefilledRoute:IMSite:right deltGiven By: KENNEDY Greene IMMUNIZATION ADMIN ([id number])By: On: 11-May-2011 Intent Shavon Bunch LPN Comments: Lot #[id number]/1/13Site-right deltoidgiven by: Jeffrey Bunch LPN TDAP VACCINE >7 IM ([id number])By: On: 04-May-2011 Intent Lorena Talbot MD, MD, Dana M IMMUNIZATION ADMIN ([id number])By: On: 04-May-2011 Intent Lorena Talbot MD, MD, Dana M Kenalog Injection, 10 mgm On: 27-Jun-2010 Intent ([id number])By: Lorena Talbot MD, MD, Dana M Kenalog Injection, 10 mgm On: 27-Jun-2010 Intent ([id number])By: Lorena Talbot MD, MD, Dana M DXA, BONE DENSITY, AXIAL SKELETON On: 14-Nov-2009 Intent ([id number])By: Lorena Talbot MD Comments: estrogen def, medication high risk Lorena Talbot MD Venous Doppler - LeftBy: Dahiana On: 25-Sep-2009 Intent Lorena HERRING MD, Dana M Comments: lower Hveebizyn-Rdb-Tmjz ([id number])By: On: 31-May-2009 Intent Dahiana HERRING, Lorena Hopson MD Comments: pain along rib M Radiology - Thoracic SpineBy: On: 31-May-2009 Intent Lorena Talbot MD, MD, Dana M PHYSICAL THERAPY EVALUATION On: 03-Apr-2008 Intent ([id number])By: Dewayne GARCIA, [place] Radiology - ChestBy: Ciesa PRE ASSEMBLY WIRER, On: 03-Apr-2008 Intent Asuncion Kenalog Injection, 10 mgm On: 04-Nov-2007 Intent ([id number])By: Lorena Talbot MD Comments: x 4 Lorena Talbot MD EMGBy: Lorena Talbot MD On: 02-Sep-2007 Intent Lorena HERRING Nerve ConductionBy: Dahiana HERRING, On: 02-Sep-2007 Intent Lorena Hopson MD Comments: upper extremities bilateral Planned Medications INJECTION, PROLIA Ordered: 12-Jun-2016 Pending Lorena Talbot MD, MD, Dana M INJECTION, PROLIA Ordered: 17-Dec-2016 Pending Lorena Talbot MD, MD, Lorena Lewis INJECTION, PROLIA Ordered: 14-Jul-2017 Pending Lorena Talbot MD, MD, Lorena Lewis INJECTION, PROLIA Ordered: 24-Feb-2018 Pending Visit, Nurse INJECTION, TRIAMCINOLONE ACETONIDE, NOT OTHERWISE SPECIFIED, 10 MG Ordered: 27-Jun-2010 PendLorena Farrar MD, MD, Dana M INJECTION, TRIAMCINOLONE ACETONIDE, NOT OTHERWISE SPECIFIED, 10 MG Ordered: 27-Jun-2010 Pending Lorena Talbot MD, MD, Dana M INJECTION, TRIAMCINOLONE ACETONIDE, NOT OTHERWISE SPECIFIED, 10 MG Ordered: 05-Dec-2013 Pending Lorena Talbot MD, MD, Dana M Instructions Name Dates Details Nonsmoker : Patient Instructions Indication: Nonsmoker Nonsmoker : How to access health information online Indication: Nonsmoker Nonsmoker : How to access health information online - Detail Indication: Nonsmoker Headache, occipital : How to access health information online Indication: Headache, occipital Headache, occipital : How to access health information online - Detail Indication: Headache, occipital Headache, occipital : Patient Instructions Indication: Headache, occipital BMI between 19-24,adult : How to access health information online - Detail Indication: BMI between 19-24,adult BMI between 19-24,adult : How to access health information online Indication: BMI between 19-24,adult BMI between 19-24,adult : Patient Instructions Indication: BMI between 19-24,adult BMI 25.0-25.9,adult : How to access health information online Indication: BMI 25.0-25.9,adult BMI 25.0-25.9,adult : How to access health information online - Detail Indication: BMI 25.0-25.9,adult BMI 25.0-25.9,adult : Patient Instructions Indication: BMI 25.0-25.9,adult Thrombophlebitis arm : How to access health information online Indication: Thrombophlebitis arm Thrombophlebitis arm : How to access health information online - Detail Indication: Thrombophlebitis arm Thrombophlebitis arm : Patient Instructions Indication: Thrombophlebitis arm Headache, occipital : How to access health information online Indication: Headache, occipital Headache, occipital : How to access health information online - Detail Indication: Headache, occipital Headache, occipital : Patient Instructions Indication: Headache, occipital Travel sickness : How to access health information online Indication: Travel sickness Travel sickness : How to access health information online - Detail Indication: Travel sickness Travel sickness : Patient Instructions Indication: Travel sickness Sinusitis : How to access health information online Indication: Sinusitis Sinusitis : How to access health information online - Detail Indication: Sinusitis Sinusitis : Patient Instructions Indication: Sinusitis Cellulitis of arm : How to access health information online Indication: Cellulitis of arm Cellulitis of arm : How to access health information online - Detail Indication: Cellulitis of arm Cellulitis of arm : Patient Instructions Indication: Cellulitis of arm Pre-operative general physical examination : How to access health information online Indication: Pre-operative general physical examination Pre-operative general physical examination : How to access health information online - Detail Indication: Pre-operative general physical examination Pre-operative general physical examination : Patient Instructions Indication: Pre-operative general physical examination Antisynthetase syndrome : How to access health information online Indication: Antisynthetase syndrome Antisynthetase syndrome : How to access health information online - Detail Indication: Antisynthetase syndrome Antisynthetase syndrome : Patient Instructions Indication: Antisynthetase syndrome Knee pain : How to access health information online Indication: Knee pain Knee pain : How to access health information online - Detail Indication: Knee pain Knee pain : Patient Instructions Indication: Knee pain Osteoarthritis : Patient Instructions Indication: Osteoarthritis Lipoma : Patient Instructions Indication: Lipoma Swelling : Patient Instructions Indication: Swelling Otitis Media : Patient Instructions Indication: Otitis Media Cerumen impaction : Patient Instructions Indication: Cerumen impaction Encounters Phone Encounter On: 21-Mar-2018 11:24 Encounter Diagnosis: Screening mammogram, encounter for End: 21-Mar-2018 11:25 [facility] Office Visit On: 24-Feb-2018 14:47 Encounter Reason: Injections - The medication the patient is here to receive is other.Encounter Diagnosis: Osteoporosis End: 24-Feb-2018 15:08 [facility] Phone Encounter On: 01-Feb-2018 11:20 Encounter Diagnosis: Osteoporosis End: 01-Feb-2018 11:22 [facility] Office Visit On: 06-Dec-2017 10:26 Encounter Diagnosis: Antisynthetase syndrome, Epigastric pain, Increased mean corpuscular volume, Preop examination End: 06-Dec-2017 11:10 [facility] Phone Encounter On: 30-Nov-2017 10:28 Encounter Diagnosis: Abdominal pain End: 30-Nov-2017 10:30 [facility] Phone Encounter On: 20-Jul-2017 12:31 Encounter Diagnosis: Cellulitis of arm End: 20-Jul-2017 12:44 [facility] Office Visit On: 20-Jul-2017 10:55 Encounter Reason: Follow up acute care visit - The patient improving (started atb Wednesday). Note for Follow up acute care visit: In [place] and noted left arm red streak from left antecubital down forearm( called D End: 20-Jul-2017 11:53 marivel Talbot) called in med antibiotic x 4 days. Rt hand swelling and left hand swelling anti synthitase syndrome followed by Dr. Nesbitt in [facility] on imuran. But holding it now.Encounter Diagnosis: BMI 25.0-25.9,adult, Nonsmoker, Antisynthetase syndrome, Cellulitis of arm [facility] Office Visit On: 14-Jul-2017 14:52 Encounter Reason: Injections - The medication the patient is here to receive is other (prolia).Encounter Diagnosis: Osteoporosis End: 15-Jul-2017 19:17 [facility] Office Visit On: 25-Jun-2017 9:20 Encounter Reason: Physical female exam - Last seen between 6-12 months ago. General health: feels well with minor complaints and has good energy level. The patient's appetite is normal. Nutrition: supplemental vitamins & End: 28-Jun-2017 7:21 amp; iron. Sleeps on average 7 hours per night. Normal bowel and bladder habits. Safety measures include appropriate use of safety belts and home smoke detectors. screening, colonoscopy (2013) and screening, mammography (). Encounter Diagnosis: BMI 25.0-25.9,adult, Tobacco abuse, in remission (Renamed from Tobacco dependence in remission), Well woman exam (Renamed from Encounter for well woman exam), Antisynthetase syndrome, Disordered sleep, Immunocompromised, acquired , Inflammatory arthritis, Acute foot pain, right, Increased mean corpuscular volume, Thrombophlebitis arm, Osteoarthrosis, not specified whether generalized/localized, lower leg, Interstitial lung disease, Osteoporosis, Abnormal ankle brachial index , Hyperlipidemia, mild, Positive PPD, Malignant neoplasm of breast (female), Cough, Stress reaction (Renamed from Acute reaction to stress) [facility] Office Visit On: 17-Dec-2016 13:54 Encounter Reason: Injections - The medication the patient is here to receive is vitamin B12 IM.Encounter Diagnosis: Osteoporosis End: 18-Dec-2016 12:00 [facility] Office Visit On: 22-Sep-2016 13:14 Encounter Diagnosis: Tobacco abuse, in remission (Renamed from Tobacco dependence in remission), Body mass index (BMI) of 19.0-24.9, Headache, occipital End: 22-Sep-2016 13:42 [facility] Phone Encounter On: 02-Jul-2016 15:51 Encounter Diagnosis: Pneumonia End: 02-Jul-2016 15:54 [facility] Office Visit On: 02-Jul-2016 10:29 Encounter Reason: Cough - The cough is characterized as productive of mucoid sputum (feels stuck).Encounter Diagnosis: Nonsmoker, BMI between 19-24,adult, Acute bronchitis and bronchiolitis End: 02-Jul-2016 10:51 [facility] Office Visit On: 12-Jun-2016 10:14 Encounter Reason: Injections - The medication the patient is here to receive is other (prolia).Encounter Diagnosis: Osteoporosis End: 15-Jun-2016 7:07 [facility] Office Visit On: 16-Apr-2016 10:17 Encounter Diagnosis: Rash (782.1) End: 16-Apr-2016 10:44 [facility] Phone Encounter On: 03-Apr-2016 10:15 [facility] End: 03-Apr-2016 10:16 Office Visit On: 02-Apr-2016 6:40 Encounter Diagnosis: BMI 25.0-25.9,adult, Well woman exam (Renamed from Encounter for well woman exam), Tobacco abuse, in remission (Renamed from Tobacco dependence in remission), Sinusitis, Inflammatory arthritis, End: 03-Apr-2016 7:27 GERD (gastroesophageal reflux disease), Obesity, unspecified, Interstitial lung disease, Immunocompromised, acquired, Antisynthetase syndrome, Hearing loss of left ear due to cerumen impaction, Neck pain, Disordered sleep, Thrombophlebitis arm, Headache, occipital, Nonsmoker, Osteoarthrosis, not specified whether generalized/localized, lower leg, Positive PPD, Malignant neoplasm of breast (female), BMI between 19- 24,adult, Travel sickness, ETD (eustachian tube dysfunction), left, Cellulitis of arm, Arch pain of left foot, Hyperlipidemia, mild, Increased mean corpuscular volume, Abnormal ankle brachial index, Osteoporosis [facility] Office Visit On: 23-Jan-2016 9:09 Encounter Reason: Cellulitis - The last clinic visit was 3 day(s) ago. Symptoms include pain, swelling and tenderness. Symptoms are located on the left arm. The patient describes the pain as aching (bruised feeling). The End: 23-Jan-2016 11:33 symptoms occur constantly. The patient describes this as mild.Encounter Diagnosis: BMI between 19-24,adult, Nonsmoker, Thrombophlebitis arm, Headache, occipital [facility] Office Visit On: 10-Jan-2016 7:01 Encounter Diagnosis: Headache, occipital, Tobacco abuse, in remission (Renamed from Tobacco dependence in remission), Immunocompromised, acquired End: 10-Jan-2016 7:34 [facility] Refill Request On: 09-Jan-2016 9:53 Encounter Diagnosis: Neck pain End: 09-Jan-2016 9:55 [facility] Office Visit On: 09-Dec-2015 15:16 Encounter Reason: Earache - The onset of the earache has been acute and has been occurring in a persistent pattern for days. The course has been increasing. The earache is described as a pressure sensation. It affects elder End: 10-Dec-2015 13:10 th ears. The pain affects the internal ear. There has been associated decreased hearing and nasal congestion. Note for Earache: will be leaving wednesday for [facility]. had sinusitis month ag o. feel great but mucous tickle cough, truied mucinex help little. Encounter Diagnosis: Travel sickness, Tobacco abuse, in remission (Renamed from Tobacco dependence in remission), Hearing loss of left ear due to cerumen impaction, ETD (eustachian tube dysfunction), left [facility] Annotation/Addendum On: 31-Oct-2015 13:17 Encounter Diagnosis: Unspecified Diagnosis End: 07-Nov-2015 7:06 [facility] Office Visit On: 31-Oct-2015 12:39 Encounter Reason: Sinusitis/ - The duration of the symptoms are 2 weeks The course has been gradually worsening. The sinusitis/ has no relieving factors. Associated features include The symptoms have been associated with End: 31-Oct-2015 13:17 cough, nasal discharge/stuffy nose and sinus pain.Encounter Diagnosis: Sinusitis, Tobacco abuse, in remission (Renamed from Tobacco dependence in remission), Immunocompromised, acquired, Antisynthetase syndrome [facility] Office Visit On: 11-Jul-2015 12:13 Encounter Reason: Follow up hospital - Reason for ER visit: note: (cellulitus ). The patient feels well with no complaints and has good energy level. Patient has been compliant with instructions. Current medication use: End: 11-Jul-2015 12:51 no side effects and compliant with dosing regimen. Patient sleeps 7 hours per night. Impact of disease: emotional impact-mild. Nutrition: balanced diet and supplemental vitamins.Encounter Diagnosis: Cellulitis of arm, Tobacco abuse, in remission (Renamed from Tobacco dependence in remission), Inflammatory arthritis, Immunocompromised, acquired [facility] Office Visit On: 29-Mar-2015 13:14 Encounter Reason: Pre-Op Visit - The procedure scheduled is a rt foot sx on 04/12. The surgeon for the procedure will be Dr. Rohan Quinones.Encounter Diagnosis: Pre-operative general physical examination, Immunocompromised, acquired, End: 29-Mar-2015 14:27 Antisynthetase syndrome, Interstitial lung disease [facility] Office Visit On: 04-Mar-2015 10:47 Encounter Reason: Cough - Symptoms include cough, chills, fever and stuffy nose. The cough is described as brassy and loose. Cough onset was gradual 1 week(s) ago. Symptoms are relieved by cough medicine. Associated symp End: 04-Mar-2015 11:24 toms include headache. Note for Cough: Cough 6 days[place] Diagnosis[place] Breast screening, Cough [facility] Annotation/Addendum On: 15-Jan-2015 14:26 Encounter Diagnosis: Breast density End: 15-Jan-2015 14:36 [facility] Office Visit On: 01-Jan-2015 11:06 Encounter Reason: Breast pain - The onset of the breast pain has been sudden (4) and has been occurring for days. The course has been constant. The breast pain is described as moderate. The location of the pain is in the End: 01-Jan-2015 11:27 left upper outer quadrant. The pain is described as throbbing (feels bruised).Encounter Diagnosis: Breast pain, left [facility] Office Visit On: 26-Feb-2014 6:42 Encounter Diagnosis: Positive PPD End: 26-Feb-2014 6:44 [facility] Phone Encounter On: 22-Feb-2014 9:11 Encounter Diagnosis: Unspecified Diagnosis End: 22-Feb-2014 9:16 [facility] Phone Encounter On: 31-Jan-2014 11:07 Encounter Diagnosis: osteoarthrosis, lower leg (715.36) End: 31-Jan-2014 11:14 [facility] Phone Encounter On: 31-Jan-2014 10:55 Encounter Diagnosis: Breast screening End: 31-Jan-2014 11:06 [facility] Office Visit On: 18-Dec-2013 11:54 Encounter Diagnosis: Upper respiratory disease, Antisynthetase syndrome End: 18-Dec-2013 12:38 [facility] Phone Encounter On: 14-Dec-2013 14:57 Encounter Diagnosis: Abnormal Blood Chemistry (790.6) End: 14-Dec-2013 14:58 [facility] Phone Encounter On: 08-Dec-2013 15:54 Encounter Diagnosis: Abnormal Blood Chemistry (790.6) End: 08-Dec-2013 16:03 [facility] Annotation/Addendum On: 07-Dec-2013 10:25 Encounter Diagnosis: osteoarthrosis, lower leg (715.36) End: 07-Dec-2013 10:27 [facility] Office Visit On: 05-Dec-2013 15:46 Encounter Reason: Injections - The medication the patient is here to receive is other (knee injections).Encounter Diagnosis: Knee pain (719.46) End: 07-Dec-2013 10:15 [facility] Annotation/Addendum On: 01-Dec-2013 15:24 Encounter Diagnosis: Unspecified Diagnosis End: 01-Dec-2013 15:25 [facility] Office Visit On: 28-Nov-2013 15:28 Encounter Reason: Follow up tests - Diagnostic tests include X-Ray (knee). Date: (11/22/13). Follow up visit with no current symptoms.Encounter Diagnosis: Osteoarthritis (715.96), Inflammatory arthritis (714.9), Knee pain (719.46) End: 28-Nov-2013 16:27 [facility] Phone Encounter On: 27-Nov-2013 16:18 [facility] End: 27-Nov-2013 16:19 Office Visit On: 02-Nov-2013 12:08 Encounter Reason: LumpsEncounter Diagnosis: Inflammatory arthritis (714.9), Lipoma End: 02-Nov-2013 12:46 [facility] Office Visit On: 19-Sep-2013 10:57 Encounter Reason: Sore Throat - Symptoms include sore throat, odynophagia and swollen glands. The symptoms are symmetrical. The pain radiates to the right neck. Onset was sudden. The symptoms occur constantly. The patien End: 19-Sep-2013 11:35 t describes this as moderate in severity and worsening. Associated symptoms include headache and hoarseness.Encounter Diagnosis: SINUSITIS, ACUTE NOS (461.9), Cerumen Impaction (380.4) [facility] Annotation/Addendum On: 11-Aug-2013 14:38 Encounter Diagnosis: Swelling End: 11-Aug-2013 14:49 [facility] Office Visit On: 11-Aug-2013 11:04 Encounter Reason: Follow up acute care visit - The patient feeling better since last seen. Patient has been compliant with instructions., [ADDITIONAL REASON] Follow up tests - Date: (08/11/13 blood work). Encounter Diagnosis: Swelling, Elevated CPK End: 11-Aug-2013 11:53 [facility] Office Visit On: 08-Aug-2013 11:02 Encounter Reason: Edema - The onset of the edema has been sudden and has been occurring in a persistent pattern for 2 weeks. The course has been constant. The edema is described as being located in both lower extremities End: 08-Aug-2013 12:18 . The symptoms have been associated with fatigue, while the symptoms have not been associated with wheezing, cough or short of breath. Note for Edema: 2 weeks ago on feet for long On methotrexate and prednisone, until first week of June. Encounter Diagnosis: Swelling, Antisynthetase syndrome, Malnutrition, Elevated CPK [facility] Refill Request On: 21-Jul-2013 6:43 Encounter Diagnosis: GERD (gastroesophageal reflux disease) End: 21-Jul-2013 6:44 [facility] Office Visit On: 18-Jul-2013 14:28 Encounter Reason: Tinnitus - The onset of the tinnitus has been acute and has been occurring in a persistent pattern for 1 month. The course has been constant. It is characterized as ringing. It affects both ears. There End: 18-Jul-2013 15:26 has been no associated dizziness, headache, hearing loss or vertigo.Encounter Diagnosis: Otitis Media (382.9), Inflammatory arthritis (714.9), Antisynthetase syndrome, Tinnitus, Interstitial lung disease, WWV [facility] Office Visit On: 08-Jun-2013 10:48 Encounter Reason: Earache - The onset of the earache has been sudden and has been occurring in a persistent pattern for 1 month. The course has been constant. The earache is described as a mild pressure sensation. It aff End: 08-Jun-2013 12:19 ects the left ear. The pain affects the internal ear. There has been associated decreased hearing, while there has been no chills, crying or fever.Encounter Diagnosis: Immunocompromised, acquired, Otalgia, Unspecified (388.70), Cerumen Impaction (380.4), Otitis Media (382.9) [facility] Prescription Refill On: 08-May-2013 7:32 Encounter Diagnosis: Inflammatory arthritis (714.9) End: 08-May-2013 7:34 [facility] Office Visit On: 07-Apr-2013 14:05 Encounter Reason: Joint Pain - Onset was 3 year(s) ago.Encounter Diagnosis: Inflammatory arthritis (714.9), Rash (782.1) End: 07-Apr-2013 14:41 [facility] Office Visit On: 02-Dec-2012 10:32 Encounter Reason: Follow up tests - Date: (labs and x-ray 11-25-12).Encounter Diagnosis: Abnormal Blood Chemistry (790.6), Joint pain (719.40) End: 02-Dec-2012 11:28 [facility] Office Visit On: 25-Nov-2012 11:04 Encounter Reason: Joint Pain - The last clinic visit was week(s) ago. Symptoms include joint pain, joint swelling, joint stiffness, decreased range of motion and morning stiffness, while symptoms do not include joint red End: 25-Nov-2012 14:50 ness, joint warmth or joint deformity. Symptoms are located in the left wrist and right wrist. The patient describes the pain as aching. Onset was gradual week(s) ago. There is no known event that prece ded symptom onset. The symptoms occur constantly. The patient describes this as moderate in severity and worsening.Encounter Diagnosis: Joint pain (719.40), Calf pain (729.5), Forearm Pain (719.43) [facility] Office Visit On: 07-Oct-2012 8:56 Encounter Reason: Rash - The last clinic visit was 3 week(s) ago.Encounter Diagnosis: Rash (782.1), WWV End: 07-Oct-2012 9:29 [facility] Office Visit On: 04-May-2012 11:53 Encounter Reason: Nurse procedure visitEncounter Diagnosis: Unspecified Diagnosis End: 06-May-2012 5:56 [facility] Office Visit On: 27-Nov-2011 8:17 Encounter Reason: Physical female exam - Last seen between 6-12 months ago. General health: feels well with no complaints, has good energy level and is sleeping well. The patient's appetite is normal. Nutrition: normal/a End: 27-Nov-2011 8:58 dequate. Exercises 3 days per week. Sleeps on average 7 hours per night. Normal bowel and bladder habits. Safety measures include appropriate use of safety belts and home smoke detectors. There are no c urrent emotional problems. screening, colonoscopy (never has had one needs new order ), screening, mammography (January 2011 ) and screening, Pap smear (seen Dr. Phillips end of last year says dont need to have any more paps ).Encounter Diagnosis: Physical exam, routine (V70.0), Breast Cancer (174.9) [facility] Office Visit On: 09-Jun-2011 14:53 Encounter Reason: Injections - The medication the patient is here to receive is other (twinrix (hep a and b)).Encounter Diagnosis: Unspecified Diagnosis End: 11-Jun-2011 6:37 [facility] Office Visit On: 11-May-2011 15:11 Encounter Reason: Injections - The medication the patient is here to receive is other (Hep A & B).Encounter Diagnosis: Unspecified Diagnosis End: 12-May-2011 9:46 [facility] Office Visit On: 04-May-2011 8:27 Encounter Diagnosis: Other general medical examination for administrative purposes (V70.3) End: 04-May-2011 8:56 [facility] Phone Encounter On: 02-Mar-2011 7:49 [facility] End: 02-Mar-2011 7:49 Office Visit On: 26-Jun-2010 11:04 Encounter Reason: Injections - The medication the patient is here to receive is other (left wrist 1/2cc marcaine, 1/2cc kenalog ).Encounter Diagnosis: Hand Pain (719.44), Forearm Pain (719.43) End: 27-Jun-2010 15:24 [facility] Office Visit On: 14-Nov-2009 12:58 Encounter Reason: Injections - The medication the patient is here to receive is other (right wrist 1/2cc marcaine 1/2cc kenalog). Encounter Diagnosis: Obesity,unspecified (278.00), Carpel tunnel syndrome (354.0), [facility] End: 14-Nov-2009 13:25 [facility] Office Visit On: 25-Sep-2009 9:12 Encounter Reason: Calf pain - The onset of the pain has been acute and has been occurring in an intermittent pattern for 3 days. The course has been recurrent. The pain is described as moderate. The symptoms exercise. End: 25-Sep-2009 9:42 e symptoms are relieved by elevating the legs (decreases the pain but the swelling remains). The symptoms have been associated with calf swelling (left). Note for Calf pain: drove to [place] and at [employer] wearing fit flops. in 4-10 left knee injury and better now.Encounter Diagnosis: Calf pain (729.5) [facility] Office Visit On: 03-Sep-2009 14:32 Encounter Reason: Jade visit - Exercises 4 times per week. The patient's dietary intake is no fast food ,no fried food ,no regular soda and restricting calories. Weight [employer]. Encounter Diagnosis: Obesity,unspecified (278.00) End: 03-Sep-2009 15:06 [facility] Office Visit On: 31-Jul-2009 8:32 Encounter Reason: Knee Pain - The onset of the knee pain has been sudden following an incident not at work (working out at [employer] and has been occurring in an intermittent pattern for 5 days. The course has been recurre End: 01-Aug-2009 23:35 nt. The knee pain is moderate to severe. The knee pain is characterized as a dull aching (to sharp). The knee pain is described as being located in the posterior knee (left knee) and medial knee. The kn ee pain is aggravated by physical activity (more she is up on it the more it hurts) and prolonged rest. The knee pain is relieved by elevation of leg (and keeping leg straight). The symptoms have been a ssociated with muscle swelling ,muscle weakness ,medial pain ,painful ROM ,decreased ROM and difficulty going up and down stairs, while the symptoms have not been associated with muscle stiffness ,catch ing ,locking ,lateral pain ,popping/crepitus ,warmth ,burning sensation ,fever ,chills or difficulty arising from chair. Note for Knee Pain: had meniscus sx 10 years ago on same knee- swollen no purpl e- did ice- and has gotten alittle better- but gets worse through day-hurts behind and medial left knee- felt popEncounter Diagnosis: Knee pain (719.46) [facility] Office Visit On: 25-Jul-2009 10:35 Encounter Reason: Physical female exam - Last seen between 1-3 months ago. General health: feels well with minor complaints ,has decreased energy level and is sleeping poorly. The patient's appetite is normal. Nutrition: End: 25-Jul-2009 11:30 normal/adequate. Exercises 3 days per week. Sleeps on average 4 hours per night. Normal bowel and bladder habits. Safety measures include appropriate use of safety belts and home smoke detectors. Curre nt emotional problems include sleep disturbances. screening, colonoscopy (approx. 8-10 years ago) ,screening, mammography (2009) and screening, Pap smear (hysterectomy). Encounter Diagnosis: Breast Cancer (174.9), Carpel tunnel syndrome (354.0), Osteoarthritis (715.96), Sleep disorder (780.50), Obesity,unspecified (278.00), [facility] Office Visit On: 31-May-2009 7:11 Encounter Diagnosis: Pain in thoracic spine (724.1) End: 31-May-2009 15:25 [facility] Office Visit On: 04-Apr-2009 10:52 Encounter Reason: Injections - The medication the patient is here to receive is other (1/2 cc kenalog, 1/2cc marcaine right wrist ). Encounter Diagnosis: Carpel tunnel syndrome (354.0), Plantar Fascititis (728.71) End: 04-Apr-2009 11:13 [facility] Office Visit On: 16-Oct-2008 8:05 Encounter Reason: Rash - The onset of the rash has been acute and has been occurring in a persistent pattern for 4 days. The course has been constant. The rash is characterized as red. The rash was first seen on the lowe End: 16-Oct-2008 8:18 r extremity. It spread to the trunk. There has been associated itching. Encounter Diagnosis: CONTACT DERMATITIS D/T POISON FARHANA, (692.6) [facility] Office Visit On: 03-Oct-2008 11:00 Encounter Reason: Numbness and tingling - The onset of the numbness and tingling has been gradual and has been occurring in a persistent pattern for 3 weeks. The course has been constant. The numbness and tingling is described as moderate. End: 03-Oct-2008 11:16 Encounter Diagnosis: Carpel tunnel syndrome (354.0) [facility] Office Visit On: 27-Jun-2008 11:38 Encounter Reason: Wrist Pain - The onset of the wrist pain has been sudden following no specific incident and has been occurring in a persistent pattern for 3 weeks. The course has been gradually worsening. The wrist doris End: 27-Jun-2008 12:39 n is moderate to severe. The wrist pain is characterized as a cramping. The wrist pain is described as being located in the entire wrist. Aggravating factors include physical activity and any movement. There are no relieving factors. Associated features include: muscle cramps ,muscle weakness ,instability ,painful ROM ,decreased ROM ,burning sensation and other joint complaints (left wrist), but not m uscle atrophy ,muscle stiffness ,muscle swelling ,joint swelling ,popping/crepitus ,warmth ,erythema ,fever ,chills ,difficulty opening doors ,difficulty turning keys in the ignition ,difficulty with sh aking hands ,difficulty with fine motor skills or difficulty with lifting. The wrist pain was preceeded by wrist problem as a child. Previous diagnostic tests include EMG/PNCV's. Previous evaluations jimenez ve included primary care physician. There has been no previous physical therapies. There have been no previous surgeries. Assistive devices have included wrist splint. Previous medications have included Ibuprofen. Encounter Diagnosis: Carpel tunnel syndrome (354.0) [facility] Office Visit On: 03-Apr-2008 15:14 Encounter Reason: Back pain - The onset of the pain has been acute and has been occurring in a persistent pattern for 1 weeks. The course has been constant. The pain is characterized as stabbing. The pain is described as End: 03-Apr-2008 16:47 being located in the upper back. The pain does not radiate. There are no precipitating factors. The symptoms have no aggravating factors. The symptoms have no relieving factors. There has been no assoc iated abdominal pain ,chills ,back stiffness ,dysuria ,flank pain or hip pain. Encounter Diagnosis: Breast Cancer (174.9), Low back pain (724.2) [facility] Office Visit On: 04-Nov-2007 9:03 Encounter Reason: Injections - The medication the patient is here to receive is other (1cc marcaine 1/2 cc kenalog right wrist ). Encounter Diagnosis: Carpel tunnel syndrome (354.0) End: 04-Nov-2007 9:40 [facility] Office Visit On: 23-Sep-2007 11:01 Encounter Reason: Follow up acute care visit - The patient feeling better since last seen and improving. Patient has been compliant with instructions. Current medication use: no side effects ,experiencing side effects ,h End: 23-Sep-2007 11:26 as decreased dose ,has increased dose ,compliant with dosing regimen ,non-compliant with dosing regimen ,considered effective by patient and not considered effective by patient. Patient sleeps 6 hours p er night. Impact of disease: emotional impact-mild. Nutrition: balanced diet. The medical issues the patient is following up for include other (paraesthesia ). Encounter Diagnosis: Parasthesia (782.0), Conjunctivitis, unspecified (372.30) [facility] Office Visit On: 02-Sep-2007 14:01 Encounter Reason: Follow up, Diagnostic Procedure Results - Diagnostic tests include X-Ray. Current symptoms include other (cervical/neck pain, numbness tingling in bilateral arms and hands ). There is a family history o End: 02-Sep-2007 15:35 f cardiovascular disease. Past medical history includes other (hx breast cancer ). Note for Follow up, Diagnostic Procedure Results: 1 month ago tingling in fingers. had on and off before. have troubl e with sleeping the hands fall asleep at night--had xray of neck mild degenerative changes. had to use pain meds. 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 General health: feels well with minor complaints (soreness in L breast) ,has good energy level and i End: 07-Jan-2007 14:29 s sleeping poorly. The patient's appetite is normal. Nutrition: supplemental vitamins & iron. Exercises 3 days per week. Sleeps on average 7 hours per night. Normal bowel and bladder habits. Safety measures include appropriate use of safety belts and home smoke detectors. There are no current emotional problems. screening, colonoscopy (1999) ,screening, mammography () and screening, Pap smear ( was last pap). Encounter Diagnosis: Breast Cancer (174.9), WWV, Osteoarthritis (715.96), Unspecified breast disorder (611.9) [facility] Payers Tiffanie RAMIREZ; a guarantor
--- OUTSIDE RECORDS SUMMARY | 2018-05-19 10:01 | XMS RPT_ITS | Continuity of Care Document ---
:1955 Author Organization [facility] Address [address] [facility] [address] [place] [address] Phone Care Team Providers Name Role Phone Dahiana HERRING, Lorena Lewis Unavailable Trevor HERRING, Darline Lewis Unavailable Betzy HERRING, Jaxon Tee Unavailable Cricket Paz Unavailable Antonio Vang Unavailable Dr. Arsh Gimenez Unavailable Zaida Corbin LPN Unavailable Unavailable Unavailable Unavailable Problems Name Dates [...] Active Cough (R05, 786.2) Comments: not in [place] here in [place]. some PND no reflux. Status: Active Deliveries (Parity) Comments: 2 Status: Active Disordered sleep (G47.9, 780.50) Comments: using calm day and working stay away from [facility]. 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 [facility] 11-16 PFTs normal stable Status: Active Malignant [...] PPD (R76.11, 795.51) Comments: see ID at [facility] in past Status: Active Pregnancies () Comments: 2 Status: Active Preop examination (Z01.818, V72.84) Status: Active Stress reaction (Renamed from Acute [...] Quantity: 5 {Tablet} Refills: 0 Ordered:09-Jan-2016 VINICIO Hillamn Start : 09-Dec-2015 End : 09-Jan-2016 Inactive [...] days Quantity: 20 {Tablet} Refills: 0 Ordered:03-Sep-2009 VNIICIO Hillman Start : 31-May-2009 Inactive Comments:Medication taken [...] days Quantity: 20 {Tablet} Refills: 0 Ordered:11-Aug-2013 Dewayne GARCIA Asuncion Start : 11-Aug-2013 End : 14-Aug-2013 Inactive [...] days Quantity: 20 {Tablet} Refills: 0 Ordered:11-Aug-2013 Dewayne GARCIAPat Start : 11-Aug-2013 End : 14-Aug-2013 Inactive Comments:ok for twenty tabs PredniSONE 20 MG Oral Tablet 1 (one) Tablet 1 bid for 3 dys then 1 day for 3 days then 1.2 daily for 3 days then back to the 5 mg a day for 9 days Quantity: 9 {Tablet} Refills: 0 Ordered:02-Jul-2016 Lorena Talbot MD, MD, Dana M Start : 02-Jul-2016 End : 11-Jul-2016 Inactive Sucralfate 1 GM Oral Tablet 1 (one) Tablet Tablet before meals and before bedtime for 2 weeks for 14 days Quantity: 56 {Tablet} Refills: 0 Ordered:30-Nov-2017 Lorena Talbot MD, MD, Lorena Lewis Start : 30-Nov-2017 End : 14-Dec-2017 Inactive [...] Refills: 0 Ordered:04-May-2012 Lorena Talbot MD, MD, Lorena Lewis Start : 04-May-2012 End : 05-May-2012 Inactive [...] days Quantity: 1 {Tablet} Refills: 5 Ordered:01-Jan-2015 Carmen Holt LPN Start : 22-Feb-2014 End : 01-Jan-2015 Discontinued [...] QD for 0 days Refills: 0 Ordered:27-Jun-2008 Saud Marilee End : 02-Sep-2007 Discontinued TRAMADOL HCL, 50MG [...] with patient xrays look up from the [facility]. CPPD. Status: Inactive as of 11-Jul-2015 Lipoma (D17.9, 214.9) Status: Inactive as of 11-Jul-2015 Low back pain (M54.5, 724.2) Status: Inactive as of 03-Oct-2008 Malnutrition (E46, 263.9) Status: Inactive as of 11-Jul-2015 Neck pain (M54.2, 723.1) Status: Inactive as of 22-Sep-2016 Obesity, unspecified (E66.9, 278.00) Status: Inactive as of 22-Sep-2016 Osteoarthritis (M17.10, 715.96) [facility] compartment Status: [...] knee surgery left 1999 Completed bilateral foot [id number] Completed Carpal Tunnel Completed Comments: left 2010 Dr. Chandler Carpal Tunnel right wrist Completed Comments: Dr. Chandler 06-03-10 Colonoscopy Completed Comments: 11-06-13 Dr. Gimenez repeat in 10 years Hernia 1998 Completed Hysterectomy, Total Completed Comments: Dr. Mabry Lumpectomy Completed Comments: 06/2006-lft breast Tonsillectomy Completed Comments: 1960 Date Value Details 30-Nov-2017 Emergency Department Summary Result: Comments: See Note; NOTES: [facility] Medical Records Department [address] [place] [address] Emergency Department Summary 11/30/17 0934 MR#: [id number] Acct: [id number] Name: SYLVIA RAMIREZ Rep #: [id number] : 1955 62 From: Eliezer Ojeda DO PCP: Lorena Talbot MD Status: REG ER - ER Visit Summary Date of Service: 11/30/17 Chief Complaint: [] History of Present Il lness: The patient is a 62 F [] Physical Examination: [] Test Results: [] Emergency Department Course and Treatment: [] Treatment Plan: [] Disposition: [] Impression: [] This note was generated with Intellect Neurosciencesation software. It may contain incorrect words, spelling, and punctuation that were not noted in review of the chart prior to signing ED Disposition - Plan for ED Patient: Dispositio n: Home or Assisted Living Chief Complaint: Abd Pain Diagnosis: Right upper quadrant abdominal pain of unknown etiology Instructions: ED Abdominal Pain Unkn Cause Prescriptions: Hydrocodone Bitart/Apap 5-325 [Livonia 5MG-325MG] 1 tab PO Q6H PRN PRN 3 Days #10 tab PRN Reason: Pain Omeprazole [Prilosec] 20 mg PO DAILY #30 cap Referrals: Lorena Talbot MD [Primary Care Provider] - What to do if you have Problems For any increased pain, shortness of breath, bleeding, nausea or vomiting, chest pain, or any unexpected problems, contact your Primary Care Provider. Call [facility] ([phone]) or report to the closest Emergency Room. Call 911 if necessary. 11/30/17 0937 <Electronically signed by Eliezer Ojeda DO> Date Eliezer sanchez DO Cosigner Signature (If Indicated): Date CC: Lorena Talbot MD 30-Nov-2017 Emergency Department Summary Result: Comments: See Note; NOTES: [facility] Medical Records Department [address] [place] [address] Emergency Department Summary 11/30/17 0417 MR#: [id number] Acct: [id number] Name: SYLVIA RAMIREZ Rep #: [id number] : 1955 62 From: Bladimir Parikh MD PCP: Lorena Talbot MD Status: REG ER ADDENDUM by Eliezer Ojeda DO on 11/30/17 at 0934 Care of the patient was turned over to me a t 7 AM. Right upper quadrant ultrasound was obtained and was normal. Patient was given a prescription for Prilosec and a short course of [place]. Patient was instructed to follow-up with her [...] given opti on of staying until the composition floor setter presents in the morning for ultrasound or [...] and vomiting This note was generated with ServiceFrame dictation software. It may contain incorrect words, [...] your Primary Care Provider. Call [facility] ([phone]) or report to the closest Emerge ncy Room. Call 911 if necessary. 11/30/17 0702 <Electronically signed by Bladimir Parikh MD> Date Bladimir Parikh MD Cosigner Signature (If Ind icated): Date CC: Lorena Talbot MD 30-Nov-2017 Emergency Department Summary Result: Comments: See Note; NOTES: [facility] Medical Records Department [address] [place] [address] Emergency Department Summary 11/30/17 0417 MR#: [id number] Acct: [id number] Name: SYLVIA RAMIREZ Rep #: [id number] : 1955 62 From: Bladimir Parikh MD [...] or night sweats. She denies any ocular, account auditor y or visual symptoms. She denies trauma. [...] was given option of staying until the composition floor setter presents in the morning for ultrasound or [...] and vomiting This note was generated with [employer] s go2 mediatware. It may contain incorrect words, spelling, and [...] your Primary Care Provider. Call [facility] ([phone]) or report to the closest Emergency Room. Call 911 if necessary. 11/30/17 0702 <Electronically signed by lBadimir Parikh MD&#62 ; Date Bladimir Parikh MD Cosigner Signature (If Indicated): Date CC: Lorena Talbot MD 30-Nov-2017 Gallbladder Result: Comments: See Note; NOTES: [facility] Imaging Services [address] [place] [address] [place] [address] Gallbladder MR#: [id number] Acct: [id number] Name: SYLVIA RAMIREZ Rep #: [id number] : 1 05/18/1954 F 62 From: Joseph Tony DO PCP: Lorena Talbot MD Status: REG ER Study: Gallbladder Date of Exam: 11/30/17 Exam# [id number] Ordering Dr: Bladimir Parikh MD STUDY: ABDOMINAL [...] CC: Lorena Talbot MD; Bladimir Parikh MD Greige Goods Inspector: Signed 16-Mar-2017 SCREENING MAMM (CAD), BILAT Result: Comments: See Note; NOTES: [facility] Imaging Services [address] [place] [address] SCREENING MAMM (CAD), BILAT MR#: [id number] Acct: [id number] Name: SYLVIA RAMIREZ Rep #: [id number] : 1955 F 61 From: Tobin Sawant MD PCP: Lorena Talbot MD Status: REG CLI Study: SCREENING MAMM (CAD), BILAT Date of Exam: 03/16/17 Exam# [id number] Ordering Dr: Yomi Pérez AMMOGRAPHY - BILATERAL [...] since the prior study. HPBI/SCREENING MAMM (CAD), EFREN GUZMANIO N: Stable bilateral screening mammogram. Yearly follow-up mammogram recommended. (A) ASSESSMENT CATEGORY: BIRADS Category 2: Benign. A letter regarding these result s will be sent to the patient by the facility within 30 days. Approximately 10% of breast cancers are not detected by mammography. A normal mammogram should not delay biopsy of a clinically suspicious abnormality. [id number] Electronically Signed: Tobin Sawant MD at 10:39 EST Tel [phone], Service support , CC: Lorena Talbot MD; Yomi Pérez DO Greige Goods Inspector: Signed 02-Jul-2016 Chest PA and Lateral Result: Comments: See Note; NOTES: [facility] Imaging Services [address] [place] [address] Verdana 4d Chest PA and Lateral MR#: [id number] Acct: [id number] Name: SYLVIA RAMIREZ Rep #: [id number] : 1955 F 61 From: Yecenia Khan MD PCP: Lorena Talbot MD Status: REG CLI Study: Chest PA and Lateral Date of Exam: 07/02/16 Exam# [id number] Ordering Dr: Lorena Talbot MD STUDY: X-RAY [...] MD at 15:38 EST , Service support [phone], CC: Lorena Talbot MD Greige Goods Inspector: Signed 10-Apr-2016 Vascular Test/LEAS/UEAS Result: Comments: See Note; NOTES: [facility] Cardiovascular Services [address] [place] [address] Verdana 4d Lower Ext Art Exam w/o Exercis MR#: [id number] Acct: [id number] Name: SYLVIA GUADARRAMA Rep #: [id number] : 1955 61 From: Jim Martin MD [...] bilaterally. Jim Vidal MD T: NTS JOB: [id number] 04/10/16 1306 <Electronically signed by Jim Martin MD> Date Jim Martin MD CC: Lorena Talbot MD Date Dictated: 04/08/161722 Date Transcribed: 04/08/161722 Greige Goods Inspector: Signed 10-Mar-2016 Bilat Scrn Digital AND CAD Result: Comments: See Note; NOTES: [facility] Imaging Services [address] [place] [address] Verdana 4d Bilat Scrn Digital AND CAD MR#: [id number] Acct: [id number] Name: SYLVIA RAMIREZ Rep #: [id number] : 1955 F 60 From: Tobin Sawant MD PCP: Lorena Talbot MD Status: REG CLI Study: Bilat Scrn Digital AND CAD Date of Exam: 03/10/16 Exam# [id number] Ordering Dr: Jose Pérez ul DO MAMMOGRAPHY [...] no significant change since the prior study. BI/Bilat Scrn Digital AND CAD IMPRESSION: Stable bilateral screeni ng mammogram. Yearly follow-up mammogram recommended. (A) ASSESSMENT CATEGORY: BIRADS Category 2: Benign. A [facility] regarding these results [facility] the facility within 30 days. Approximately 10% of breast cancers are not detected by mammography. A normal mammogram should not delay biopsy of a clinically suspicious abnormality. [id number] Elect ronically Signed: Tobin Sawant MD at 11:03 EST Tel [phone], Service support [phone], CC: Lorena Talbot MD; Yomi Pérez DO Greige Goods Inspector: Signed 10-Mar-2016 Dexa Bone Density Study (HP) Result: Comments: See Note; NOTES: [facility] Imaging Services [address] [place] [address] Verdana 4d Dexa Bone Density Study (HP) MR#: [id number] Acct: [id number] Name: MARCELA RAMIREZ Rep #: [id number] : 1955 F 60 From: Tobin Sawant MD PCP: Lorena Talbot MD Status: REG CLI Study: Dexa Bone Density Study (HP) Date of Exam: 03/10/16 Exam# [id number] Ordering Dr: KODY NESBITT STUDY: DUAL ENERGY [...] Tobin Sawant MD at 10:18 EST Tel [phone], Service support [phone], CC: Lorena Talbot MD; KODY NESBITT Greige Goods Inspector: Signed 07-Jul-2015 History and Physical Exam Result: Comments: See Note; NOTES: [facility] Medical Records Department [address] [place] [address] History and Physical 07/07/15 1809 MR#: [id number] Acct: [id number] Name: ALICIA RAMIREZETTE Rep #: [id number] : 1955 60 From: Lucy Figueroa MD [...] mentioned above presented to the emergency room [facility] of left upper extremity soreness, pain, [...] [Vitamin 2,000 unit PO DAILY 07/07/15 D] Burnside-3 Fatty Acids/Fish Oil 2 each PO DAILY 07/07/15 [Burnside 3 1,000 mg Softgel] Turmeric [Turmeric Root] [...] 92.3 H Lymph % (Auto) 4.1 L Alger % (Auto) 2.2 Eos % (Auto) 1.0 [...] Subcu Lovenox. This note was generated with ServiceFrame dictation software. It may contain incorrect words, spelling, and punct uation that were not noted in checking the note before signing. 07/07/15 1818 <Electronically signed by Lucy Figueroa MD> Date Lucy Figueroa MD Cosigner Signature (if applicable): Date CC: Lorena Talbot MD; Lucy Figueroa Signed 18-Apr-2015 Operative Report Result: Comments: See Note; NOTES: [facility] Medical Records Department [address] [place] [address] Operative Report MR#: [id number] Acct: [id number] Name: KIRSTEN RAMIREZ Rep #: [id number] : 1955 60 From: Galileo Quinones DPM PCP: Lorena Talbot MD Status: [facility] DATE OF SERVICE: DATE OF SURGERY: April [...] sooner if needed. Galileo Quinones DPM T: NTS JOB: [id number] 04/18/15 0757 <Electronic ally signed by Galileo Quinones DPM> Date Galileo Quinones DPM Cosigner Signature (If Indicated): Date CC: Lorena Talbot MD; Galileo Quinones DPM Date Dictated: 04/12/15 1648 Date Transcribed: 04/12/151647 Greige Goods Inspector: Signed 12-Apr-2015 Discharge Instruction Result: Comments: See Note; NOTES: [facility] Medical Records Department [address] [place] [address] Instructions for Home/Discharge Instructions 04/12/15 1639 MR#: [id number] Acct: [id number] Name: SYLVIA RAMIREZ Rep #: [id number] : 1955 60 From: Galileo Quinones DPM [...] Result: Comments: See Note; NOTES: [facility] Imaging Services [address] [place] [address] Verdana 4d Chest PA and Lateral MR#: [id number] Acct: [id number] Name: ALICIA RAMIREZETTE Rep #: [id number] : 1955 F 60 From: Jose Fagan MD PCP: Lorena Talbot MD Status: PRE SDC Study: Chest PA and Lateral Date of Exam: 04/04/15 Exam# [id number] Ordering Dr: Virgen Quinones DPM STUDY: X-RAY [...] FACR at 13:58 EST , Service support [phone], RAD/Chest PA and Lateral IMPRESSION: No signs of acute cardiopulmonary disease Electronically Signed: Jose Fagan MD, FACR at 13:58 EST , Service support [phone], CC: Lorena Talbot MD; Galileo Quinones DPM Greige Goods Inspector: Signed 29-Mar-2015 EKG ([id number]) Comments: nsr no acute chg poor R wave progression Result: [MEASUREMENTS ANALYSIS] Date of Test: 03/29/2015 13:38:32; Heart Rate: 73; IN Interval: 180; QRS: 88; QT Interval: 380; Corrected QT Interval (QTc): 402; P Wave [place]: 33; QRS Wave [place]: 30; T Wave [place]: 29; Blood Pressure: 120/78 [ECG DIAGNOSTIC STATEMENTS] Date of Test: 03/29/2015 13:38:32; Summary: Sinus Rhythm WITHIN NORMAL LIMITS -Mar-2015 Inital Evaluation - PT Result: Comments: See Note; NOTES: [facility] [address] [place] [address] Fax REHABILITATION SE DEL CID INITIAL EVALUATION MR#: [id number] Acct: [id number] Name: SYLVIA RAMIREZ Rep #: [id number] : 1955 60 From: Gurdeep Carson Referring Dr.: Galileo Quinones DPM Status: REG RCR Ins urance: [facility] Date: Patient's Visit Information SYLVIA RAMIREZ [...] to be FAXED BACK to us at [phone] for Medicare purposes. Please let me know if there are questions or concerns regarding this plan of care. Physician Signature: Date: <Electronically signed by Gurdeep Carson > 03/28/15 1140 CC: Lorena Talbot MD; Galileo Quinones DPM [facility] Jeanne d For Medicare only, by signing this I certify the plan of care. Physicians Signature Date 08-Mar-2015 Unilat Rt Scrn Digital AND CAD Result: Comments: See Note; NOTES: [facility] Imaging Services [address] [place] [address] Verdana 4d Unilat Rt Scrn Digital AND CAD MR#: [id number] Acct: [id number] Na me: SYLVIA RAMIREZ Rep #: [id number] : 1955 F 59 From: Tobin Sawant MD PCP: Lorena Talbot MD Status: REG CLI Study: Unilat Rt Scrn Digital AND CAD Date of Exam: 03/08/15 Exam# [id number] Ordering Dr: Pat Buchanan MAMMOGRAPHY - UNILATERAL [...] delay biopsy of a clinically suspicious abnormality. [id number] Electronically Signed: Tobin Sawant MD 201 09/03/12 at 11:11 EST Tel [phone], Service support [phone], CC: Pat Buchanan; Lorena Talbot MD Greige Goods Inspector: Signed 04-Mar-2015 Lower Ext/No Jt/w/o Result: Comments: See Note; NOTES: [facility] Imaging Services [address] [place] [address] Verdana 4d Lower Ext/No Jt/w/o MR#: [id number] Acct: [id number] Name: Cirilo RAMIREZ Rep #: [id number] : 1955 F 59 From: Jose Fagan MD PCP: Lorena Talbot MD Status: REG CLI Study: Lower Ext/No Jt/w/o Date of Exam: 03/04/15 Exam# [id number] Ordering Dr: Ward Quinones DPM STUDY: MRI [...] at 10:47 EST Tel , Service support [phone], CC: Lorena Talbot MD; Galileo Quinones DPM Greige Goods Inspector: Signed 15-Jan-2015 Breast Limited Unilateral Result: Comments: See Note; NOTES: [facility] Imaging Services [address] [place] [address] Ultrasound Report MR#: [id number] Acct: [id number] Name: SYLVIA RAMIREZ Rep #: [id number] : 1955 F 59 From: Tobin Sawant MD PCP: Lorena Talbot MD Status: REG CLI Study: Breast Limited Unilateral Date of Exam: 01/15/15 Exam# [id number] Ordering Dr: Pat Buchanan STUDY : ULTRASOUND [...] regarding these results will be sent to e patient by the facility within 30 days. Electronically Signed: Tobin Sawant MD at 13:27 EDT Tel [phone], Service support [phone], CC: Pat Buchanan ; Lorena Talbot MD Greige Goods Inspector: Signed 01-Jan-2015 Breast Limited Unilateral Result: Comments: See Note; NOTES: [facility] Imaging Services [address] [place] [address] Ultrasound Report MR#: [id number] Acct: [id number] Name: SYLVIA RAMIREZ Rep #: [id number] : 1955 F 59 From: Frantz Rojas MD PCP: Lorena Talbot MD Status: REG CLI Study: Breast Limited Unilateral Date of Exam: 01/01/15 Exam# [id number] Ordering Dr: Pat Buchanan STUDY: ULT RASOUND [...] patient by the facility within 30 days. Bneson maciel Signed: Laly Rojas MD at 15:39 EDT Tel , Service support [phone], CC: Pat Buchanan; Lorena Talbot MD Greige Goods Inspector: Signed 01-Jan-2015 Unilat Lt Diag Digital AND CAD Result: Comments: See Note; NOTES: [facility] Imaging Services [address] [place] [address] Breast Imaging Report MR#: [id number] Acct: [id number] Name: SYLVIA RAMIREZ Rep #: [id number] : 1955 F 59 From: Frantz Rojas MD PCP: Lorena Talbot MD Status: REG CLI Study: Unilat Lt Diag Digital AND CAD Date of Exam: 01/01/15 Exam# [id number] Ordering Dr: Pat Buchanan AMMOGRAPHY - UNILATERAL [...] t 15:34 EDT Tel , Service support [phone], CC: Pat Buchanan; Lorena Talbot MD Greige Goods Inspector: Signed 21-Feb-2014 Bilat Scrn Digital & CAD Result: Comments: See Note; NOTES: [facility] Imaging Services [address] [place] [address] Breast Imaging Report MR#: [id number] Acct: [id number] Name: SYLVIA RAMIREZ Rep #: [id number] : 1955 F 58 From: Tobin Sawant MD PCP: Lorena Talbot MD Status: REG CLI Exam# [id number] Ordering Dr: Lorena Talbot MD MAMMOGRAPHY - [...] MD 201 08/03/28 at 9:41 EDT Tel [phone], Service support [phone], CC: Lorena Talbot MD Greige Goods Inspector: Signed 21-Feb-2014 Dexa Bone Density Study (HP) Result: Comments: See Note; NOTES: [facility] Imaging Services [address] [place] [address] Bone Density Report MR#: [id number] Acct: [id number] Name: SYLVIA RAMIREZ Rep #: [id number] : 1955 F 58 From: Tobin Sawant MD PCP: Lorena Talbot MD Status: [facility] CLI Study: Dexa Bone Density Study (HP) Date of Exam: 02/21/14 Exam# [id number] Ordering Dr: Lorena Talbot MD STUDY: DUAL [...] Osteoporosis Foundation [email or web address] Electronically Jeanne d: Tobin Sawnat MD at 12:35 EDT Tel [phone], Service support [phone], CC: Lorena Talbot MD Greige Goods Inspector: Signed 08-Feb-2014 PT Discharge Summary Result: Comments: See Note; NOTES: [facility] [address] [place] [address] Fax REHABILITATION SERVICES DISCHARGE SUMMARY MR#: [id number] Acct: [id number] Name: SYLVIA RAMIREZ Rep #: [id number] : 1955 58 From: Karrie Chris Referring Dr.: Haile Aguilera DO Status: REG RCR Eval Date: Discha rg Date: DATE OF SERVICE: Date of [...] it is appropriate she be discharged from [facility] and continue independent home exercise progra m. The patient was encouraged to call if she does have any questions or concerns. Karrie Chris DPT T: KRISHAN JOB: [id number] <Electronically signed by Karrie Chris > 02/08/14 0705 CC: Signed 02-Jan-2014 Inital Evaluation - PT Result: Comments: See Note; NOTES: [facility] [address] [place] [address] Fax REHABILITATION SERVICES INITIAL EVALUATION MR#: [id number] Acct: [id number] Name: SYLVIA RAMIREZ Rep #: [id number] : 1955 58 From: Karrie Chris Referring Dr.: Haile Aguilera DO Status: REG R [facility] Eval Date: DATE OF SERVICE: 01/01/2014 [...] On Wednesday she is leaving for the [place] and will be gone for approximately 2 [...] pain. Karrie Chris DPT T: NTS JOB: [id number] <Electronically signed by Karrie Jhaveri Aries > 01/02/14 0908 CC: Signed For Medicare only, by signing [...] Situation Comments: single lives alone, annie olivares [phone] dtr Status: Active No Drug Use Status: Active Non Smoker/No Tobacco Use Status: Active Number of Adult (age 18 or over) Dependents Comments: 2 Status: Active Tobacco use: Former smoker. Status: Active Smoking Status Name Dates Details Former smoker Vital Signs Date Test Result Details 70-Fxf-727875:39 Pulse 70 /min Comments: Pattern: Regular Respiration Rate 18 /min O2 SAT 97 % Comments: Room air BP Systolic 114 mm[Hg] Comments: Patient Position: Sitting BP Diastolic 70 mm[Hg] Comments: Patient Position: Sitting 88-Tfi-344073:58 Temperature 97.6 f Comments: Method: Temporal Pulse [...] kg/m2 Body Surface Area Calculated 1.69 m2 :17 Temperature 97.6 f Comments: Method: Temporal Pulse [...] kg/m2 Body Surface Area Calculated 1.74 m2 :02 Temperature 98.9 f Comments: Method: Oral Pulse [...] 0.00 cm Results Date Description Value Details 30-Hkx-350627:35 Methymalonic Acid, Serum Comments: PATIENT NOT FASTINGPERFORMED BY: [employer] [id number] BY: [address] [id number] ([address]) Disclaimer: SPRCS (Normal) Comments: This test was developed and its performance characteristicsdetermined by [employer]. It has not been cleared or approvedby the Food and Drug Administration. Methylmalonic Acid, Serum 82 nmol/L (Normal) Range: 0-378 91-Mhw-723833:35 Vitamin B-12 Comments: PATIENT NOT FASTINGPERFORMED BY: [employer] [id number] BY: [employer] [id number] (cyanocobalamin) (15773) Vitamin B12 852 pg/mL (Normal) Range: 232-1245 10-Zvk-043736:35 HELICOBACTER PYLORI Comments: PATIENT NOT FASTINGPERFORMED BY: [address] [id number] BY: [facility] [facility] [id number] ANTIBODY (77406) H. pylori, IgG Abs 0.17 {Index_Value} (Normal) Range: 0.00-0.79 Comments: Negative <0.80 Equivocal 0.80 - 0.89 Positive >0.89 94-Otz-736377:35 Creatine Kinase Total Comments: PATIENT NOT FASTINGPERFORMED BY: [employer] [id number] BY: [place] [id number] [facility] [id number] ([id number]) Creatine Kinase,Total 425 U/L (Abnormal) Range: 24-173 33-Djr-850405:35 C-Reactive Protein Comments: PATIENT NOT FASTINGPERFORMED BY: [employer] [id number] BY: [address] [id number] ([id number]) C-Reactive Protein, Quant 6.0 mg/L (Abnormal) Range: 0.0-4.9 30-Nov-20172:50 Basic Metabolic Profile (BMP) Comments: [facility] Onayposhub5257 [place], [address] GAP 10 (Normal) Range: 5-15 CO2 26.0 [...] A.D.A. criteria.Please note revised GLUCOSE reference range rkofzqfwm72/02/2018. :50 CBC W/Diff, Automated Comments: [facility] Tljbvzwkdj5754 [address]. [place], [place], [id number] SMEAR COMMENT SCANNED (Normal) Absolute Lymph 0.21 [...] K/mm3 (Abnormal) Range: 4.4-11.0 :50 Lipase Comments: [facility] Afsbowfuxw7[address] [place], [id number] LIPASE 171 U/L (Normal) Range: 73-393 30-Nov-20172:50 Liver Profile Comments: [address] [place], [id number] D BILI 0.27 mg/dL (Normal) Range: 0.00-0.30 T BILI 1.10 mg/dL (Abnormal) Range: 0.20-1.00 ALT 36 U/L (Normal) Range: 13-56 ALK P 46 U/L (Normal) Range: 45-117 AST 32 U/L (Normal) Range: 15-37 GLOB 3.9 g/dL (Normal) Range: 2.2-4.2 ALB 3.6 g/dL (Normal) Range: 3.2-5.0 T PROT 7.5 g/dL (Normal) Range: 6.4-8.2 82-Vsq-313093:27 CBC-Complete Blood Cnt No Diff Comments: [address] [place], [place], [address] MPV 10.2 fL (Normal) Range: 6.2-12.0 PLT [...] 4.2-5.4 WBC 4.0 K/mm3 (Abnormal) Range: 4.4-11.0 10-Isn-644379:27 CPK Total, Creatine Kinase Comments: [address] [place], [address] CPK TOTAL 577 U/L (Abnormal) Range: 26-192 46-Djf-782445:27 Liver Profile Comments: [facility] Ktxkjuzcfc7480 [address]. [place], [place], [address] D BILI 0.16 mg/dL (Normal) Range: 0.00-0.30 T BILI 0.90 mg/dL (Normal) Range: 0.20-1.00 ALT 36 U/L (Normal) Range: 13-56 ALK P 43 U/L (Abnormal) Range: 45-117 AST 33 U/L (Normal) Range: 15-37 GLOB 3.7 g/dL (Normal) Range: 2.2-4.2 ALB 3.8 g/dL (Normal) Range: 3.2-5.0 T PROT 7.5 g/dL (Normal) Range: 6.4-8.2 01-Uom-112887:27 Serum Creatinine AND GFR Comments: [facility] Yzvsyjjlpr1230 [address] [place], [place], [address] EST GFR - AA 163 mL/min (Normal) Comments: GFR Calc EST GFR 135 mL/min (Normal) Comments: Non- GFR Calc CREAT,SERUM 0.49 mg/dL (Abnormal) Range: 0.55-1.02 Comments: The validity of the calculated GFR AND GFRAA in patients over70 years has not been determined. Clinical correlation isessential. 91-Jef-186665:23 CBC W/Diff, Automated Comments: [facility] Ykvxhjpabn6138 [address] [place], [place], [id number] BASO STIP RARE (Normal) PLT EST ADEQUATE [...] :34 CBC-Complete Blood Cnt No Diff Comments: [facility] Tblowhlztk9146 [facility] [address] [place], [place], [phone](090) MPV 10.1 fL (Normal) Range: 6.2-12.0 PLT [...] 4.4-11.0 :34 CPK Total, Creatine Kinase Comments: [facility] [address] [place], [place], [address] CPK TOTAL 909 U/L (Abnormal) Range: 26-192 :34 Liver Profile Comments: [facility] Nilxmelykd6365 [place], [address] D BILI 0.16 mg/dL (Normal) Range: 0.00-0.30 T BILI 0.70 mg/dL (Normal) Range: 0.20-1.00 ALT 49 U/L (Normal) Range: 13-56 ALK P 52 U/L (Normal) Range: 45-117 AST 44 U/L (Abnormal) Range: 15-37 GLOB 3.8 g/dL (Normal) Range: 2.2-4.2 ALB 3.5 g/dL (Normal) Range: 3.2-5.0 T PROT 7.3 g/dL (Normal) Range: 6.4-8.2 :34 Serum Creatinine AND GFR Comments: [facility] Lbbuzicixn8627 [address] [place], [place], [address] EST GFR - AA 192 mL/min (Normal) [...] B CORE,TOT Negative (Normal) Comments: Performed at: - [facility] [id number] Director: Arsh Cuellar PhD, Phone: [phone] 06-Qjt-23376:23 Hepatitis C Antibodies Comments: [facility] Patient F[facility]? [facility] (refer to report for specific site)refer to report for address and phone number HEP C AB 0.1 {s/co_ratio} (Normal) Range: 0.0-0.9 Comments: Negative: < 0.8 Indeterminate: 0.8 - 0.9 Positive: > 0.9 The CDC recommends that a positive HCV antibody result be followed up with a HCV Nucleic Acid Amplification test (961957). :23 Immunoglobulins G/A/M Comments: Is Patient Fasting? [facility] (refer to report for specific site)refer to report for address and phone number IMMUNOGL M 202 mg/dL (Normal) Range: 26-217 IMMUNO A 165 mg/dL (Normal) Range: 87-352 IMMUNO G 1092 mg/dL (Normal) Range: 700-1600 20-Wme-183598:18 CBC-Complete Blood Cnt No Diff Comments: [facility] [address] [place], [place], [address] MPV 11.1 fL (Normal) Range: 6.2-12.0 PLT [...] 4.2-5.4 WBC 4.9 K/mm3 (Normal) Range: 4.4-11.0 86-Fsg-254246:18 Liver Profile Comments: [facility] [address] [place], [place], [address] D BILI 0.13 mg/dL (Normal) Range: 0.00-0.30 T BILI 0.60 mg/dL (Normal) Range: 0.20-1.00 ALT 56 U/L (Normal) Range: 13-56 Comments: Please note revised ALT reference range /28/2018. ALK P 49 U/L (Normal) Range: 45-117 AST 57 U/L (Abnormal) Range: 15-37 GLOB 3.6 g/dL (Normal) Range: 2.2-4.2 ALB 3.6 g/dL (Normal) Range: 3.2-5.0 T PROT 7.2 g/dL (Normal) Range: 6.4-8.2 77-Sex-307274:18 Serum Creatinine AND GFR Comments: [facility] Fsonuazncf2805 [facility] [address] [place], [place], [address] EST GFR - AA 164 mL/min (Normal) Comments: GFR Calc EST GFR 135 mL/min (Normal) Comments: Non- GFR Calc CREAT,SERUM 0.49 mg/dL (Abnormal) Range: 0.55-1.02 Comments: The validity of the calculated GFR AND GFRAA in patients over70 years has not been determined. Clinical correlation isessential. 13-Hta-57365:40 CBC-Complete Blood Cnt No Diff Comments: [facility] Wwuqpyuepz9732 [address]. [place], [place], [address] MPV 11.0 fL (Normal) Range: 6.2-12.0 PLT [...] 4.4-11.0 :40 CPK Total, Creatine Kinase Comments: [facility] Rcymdmechh4653 [address] [place], [address] CPK TOTAL 1418 U/L (Abnormal) Range: 26-192 72-Xil-17788:40 Liver Profile Comments: [place] [address] [place], [address] D BILI 0.12 mg/dL (Normal) Range: 0.00-0.30 T BILI 0.60 mg/dL (Normal) Range: 0.20-1.00 ALT 59 U/L (Abnormal) Range: 13-56 Comments: Please note revised ALT reference range fqoyqekgx44/28/2018. ALK P 48 U/L (Normal) Range: 45-117 AST 60 U/L (Abnormal) Range: 15-37 GLOB 3.6 g/dL (Normal) Range: 2.2-4.2 ALB 3.4 g/dL (Normal) Range: 3.2-5.0 T PROT 7.0 g/dL (Normal) Range: 6.4-8.2 :40 Serum Creatinine AND GFR Comments: [facility] Nadzadhbfe7545 [place], [address] EST GFR - AA 201 mL/min (Normal) Comments: GFR Calc EST GFR 166 mL/min (Normal) Comments: Non- GFR Calc CREAT,SERUM 0.41 mg/dL (Abnormal) Range: 0.55-1.02 Comments: The validity of the calculated GFR AND GFRAA in patients over70 years has not been determined. Clinical correlation isessential. 00-Hlm-796975:31 CBC-Complete Blood Cnt No Diff Comments: [facility] Uriodpppyg6320 [place], [address] MPV 10.5 fL (Normal) Range: 6.2-12.0 PLT [...] 4.2-5.4 WBC 5.0 K/mm3 (Normal) Range: 4.4-11.0 59-Vng-773118:31 CPK Total, Creatine Kinase Comments: [facility] Abklkbxhyr2035 [facility] [address] [place], [place], [address] CPK TOTAL 924 U/L (Abnormal) Range: 26-192 44-Xkh-784786:31 Liver Profile Comments: [facility] Bwbkjvqgbf0697 [address] [place], [place], [address] D BILI 0.12 mg/dL (Normal) Range: 0.00-0.30 T BILI 0.70 mg/dL (Normal) Range: 0.20-1.00 ALT 49 U/L (Normal) Range: 12-78 ALK P 45 U/L (Normal) Range: 45-117 AST 49 U/L (Abnormal) Range: 15-37 GLOB 4.0 g/dL (Normal) Range: 2.2-4.2 ALB 3.6 g/dL (Normal) Range: 3.4-5.0 Comments: Please note revised Albumin AND Globulin reference rangeeffective 2017. T PROT 7.6 g/dL (Normal) Range: 6.4-8.2 46-Pyp-665388:31 Serum Creatinine AND GFR Comments: [facility] Ojfumhxedn1174 [address]. [place], [place], [address] EST GFR - AA 142 mL/min (Normal) Comments: GFR Calc EST GFR 117 mL/min (Normal) Comments: Non- GFR Calc CREAT,SERUM 0.56 mg/dL (Normal) Range: 0.55-1.02 Comments: The validity of the calculated GFR AND GFRAA in patients over70 years has not been determined. Clinical correlation isessential. :18 CBC-Complete Blood Cnt No Diff Comments: [facility] Cjnuttlpow0605 [address]. [place], [address] MPV 10.6 fL (Normal) Range: 6.2-12.0 PLT [...] 4.4-11.0 :18 CPK Total, Creatine Kinase Comments: [facility] Xjhbjxouwx2398 [address] [place], [place], [address] CPK TOTAL 1718 U/L (Abnormal) Range: 26-192 :18 Liver Profile Comments: [facility] Jjbhkwkynv9555 [address]. [place], [place], [address] D BILI 0.14 mg/dL (Normal) Range: 0.00-0.30 T BILI 0.60 mg/dL (Normal) Range: 0.20-1.00 ALT 58 U/L (Normal) Range: 12-78 ALK P 48 U/L (Normal) Range: 45-117 AST 60 U/L (Abnormal) Range: 15-37 GLOB 3.7 g/dL (Normal) Range: 2.2-4.2 ALB 3.5 g/dL (Normal) Range: 3.4-5.0 Comments: Please note revised Albumin AND Globulin reference rangeeffective 2017. T PROT 7.2 g/dL (Normal) Range: 6.4-8.2 66-Esk-94774:18 Serum Creatinine AND GFR Comments: [facility] Gqwqtpxmmt6046 [address] [place], [place], [address] EST GFR - AA 175 mL/min (Normal) Comments: GFR Calc EST GFR 145 mL/min (Normal) Comments: Non- GFR Calc CREAT,SERUM 0.46 mg/dL (Abnormal) Range: 0.55-1.02 Comments: The validity of the calculated GFR AND GFRAA in patients over70 years has not been determined. Clinical correlation isessential. 87-Tzg-310808:43 Basic Metabolic Profile (BMP) Comments: [facility] Zyrnupzmku4706 [place], [address] GAP 9 (Normal) Range: 5-15 CO2 26.0 [...] 7-18 GLU 97 mg/dL (Normal) Range: 70-110 11-Nyd-527494:43 CBC W/Diff, Automated Comments: [facility] Pcubiytoqo6417 [place], [address] OVALOCYTE RARE (Normal) MACROCYTE 1+ (Normal) PLT [...] 4.2-5.4 WBC 5.5 K/mm3 (Normal) Range: 4.4-11.0 00-Btm-984018:43 CPK Total, Creatine Kinase Comments: [facility] [address] [place], [place], [address] CPK TOTAL 1846 U/L (Abnormal) Range: 26-192 24-Xut-518220:43 Liver Profile Comments: [facility] Dvbhvnepfs4688 [facility]. [place], [place], [address] D BILI 0.17 mg/dL (Normal) Range: 0.00-0.30 T BILI 0.70 mg/dL (Normal) Range: 0.20-1.00 ALT 60 U/L (Normal) Range: 12-78 ALK P 55 U/L (Normal) Range: 45-117 AST 69 U/L (Abnormal) Range: 15-37 GLOB 3.4 g/dL (Normal) Range: 2.3-3.5 ALB 3.7 g/dL (Normal) Range: 3.4-5.0 T PROT 7.1 g/dL (Normal) Range: 6.4-8.2 53-Rvi-771702:26 Basic Metabolic Profile (BMP) Comments: [facility] Sxlnvhnbnz7022 [address] [place], [place], [address] GAP 6 (Normal) Range: 5-15 CO2 27.0 [...] 7-18 GLU 96 mg/dL (Normal) Range: 70-110 94-Lcm-307361:26 CBC W/Diff, Automated Comments: [facility] Fnpsbwbuqb2464 [address] [place], [place], [address] Absolute Lymph 0.33 {X10_3/ul} (Abnormal) Range: 0.83-4.51 [...] 4.2-5.4 WBC 5.2 K/mm3 (Normal) Range: 4.4-11.0 65-Vth-515492:26 CPK Total, Creatine Kinase Comments: [facility] [address] [place] [address], [address] CPK TOTAL 1661 U/L (Abnormal) Range: 26-192 29-Qfr-152522:26 Liver Profile Comments: [address], [address] D BILI 0.12 mg/dL (Normal) Range: 0.00-0.30 T BILI 0.60 mg/dL (Normal) Range: 0.20-1.00 ALT 54 U/L (Normal) Range: 12-78 ALK P 50 U/L (Normal) Range: 45-117 AST 58 U/L (Abnormal) Range: 15-37 GLOB 3.9 g/dL (Abnormal) Range: 2.3-3.5 ALB 3.6 g/dL (Normal) Range: 3.4-5.0 T PROT 7.5 g/dL (Normal) Range: 6.4-8.2 4-Bqu-966463:44 CBC W/Diff, Automated Comments: ADD TO 0503:A194RLA TO 0503:U180CtftsptOhioHealth [facility] Jgrowfhuff5668 [facility] [place], [address] SMEAR COMMENT COMMENT (Normal) Comments: [...] 4.2-5.4 WBC 5.4 K/mm3 (Normal) Range: 4.4-11.0 0-Ufs-583214:42 CPK Total, Creatine Comments: ADD CPK/BMP/VCKVYQR6-6-ZRfgpvocMer[facility] [place] [facility] Snesbedtee6606 [address] [place], [address] Kinase CPK TOTAL 1438 U/L (Abnormal) Range: 26-192 8-Pzo-111087:42 CRP Comments: ADD CPK/BMP/LDEGCVM8-5-CXxfsakoMer[facility] [place] [facility] Lggajtwlya1586 [place], [address] C-REACTIVE PROT 4.67 mg/L (Abnormal) Range: 0.0-3.0 Comments: C-Reactive Protein (CRP) provides useful information for thediagnosis, therapy and monitoring of inflammatory processesand associated diseases. For the evaluation of Relative Riskfor Cardiovascular Dise ase, a High Sensitivity CRP (HSCRP)should be ordered. 4-Gid-834104:42 Erythrocyte Sed Rate Comments: [facility] Ulrmfcljry8207 [place], [address] SED RATE 39 mm/h (Abnormal) Range: 0-30 0-Osj-713238:42 Hepatitis ABC Profile Comments: [facility] (refer to report for specific site)refer to report for address and phone number COMMENT Comment (Normal) Comments: Non reactive HCV antibody screen is consistent with no HCVinfection, unless recent infection is suspected or otherevidence exists to indicate HCV infection.Performed at: [facility] [address] [id number] Director: Arsh Cuellar PhD, Phone: [phone] HCV Ab <0.1 {s/co_ratio} (Normal) Range: 0.0-0.9 Hep B Michael AB Reactive (Normal) Comments: Non Reactive: Inconsistent with immunity, less than 10 mIU/mL Reactive: Consistent with immunity, greater than 9.9 mIU/mL HEP B CORE,TOT Negative (Normal) HB CORE [id number] Negative (Normal) HB SURF AG Negative (Normal) HEP A AB,T.6726 Positive (Abnormal) HEP A IgM 6734 Negative (Normal) 42-Pkz-445144:35 Basic Metabolic Profile (BMP) Comments: [facility] Dfnqnqjpnm9916 [place], [address] GAP 7 (Normal) Range: 5-15 CO2 26.0 [...] 7-18 GLU 105 mg/dL (Normal) Range: 70-110 24-Fqu-182141:35 CBC W/Diff, Automated Comments: [facility] Scdafjbikg5207 [address] [place], [place], [address] Absolute Lymph 0.28 {X10_3/ul} (Abnormal) Range: 0.83-4.51 [...] 4.2-5.4 WBC 5.3 K/mm3 (Normal) Range: 4.4-11.0 60-Jvu-035513:35 CPK Total, Creatine Kinase Comments: [facility] Vmwboptzzj5510 [address] [place], [place], [address] CPK TOTAL 2479 U/L (Abnormal) Range: 26-192 32-Vmf-052467:35 Liver Profile Comments: [facility] Wqbvatwwqs7434 [address] [place], [place], [address] D BILI 0.17 mg/dL (Normal) Range: 0.00-0.30 T BILI 0.90 mg/dL (Normal) Range: 0.20-1.00 ALT 105 U/L (Abnormal) Range: 12-78 ALK P 52 U/L (Normal) Range: 45-117 AST 102 U/L (Abnormal) Range: 15-37 GLOB 3.6 g/dL (Abnormal) Range: 2.3-3.5 ALB 3.5 g/dL (Normal) Range: 3.4-5.0 T PROT 7.1 g/dL (Normal) Range: 6.4-8.2 2-Gta-024253:33 Basic Metabolic Profile (BMP) Comments: [facility] Xazfgqtpsp2357 [address] [place], [place], [address] GAP 9 (Normal) Range: 5-15 CO2 27.0 [...] 7-18 GLU 94 mg/dL (Normal) Range: 70-110 2-Okl-189253:33 CBC W/Diff, Automated Comments: [facility] Dwnwpvcryj1654 [address] [place], [place], [address] ANISO 2+ (Normal) Absolute Lymph 0.32 {X10_3/ul} [...] 4.2-5.4 WBC 4.8 K/mm3 (Normal) Range: 4.4-11.0 1-Tkq-577220:33 CPK Total, Creatine Kinase Comments: [facility] Sxjifuogyx2373 [place], [address] CPK TOTAL 2987 U/L (Abnormal) Range: 26-192 8-Tbt-252478:33 Liver Profile Comments: [facility] Qaibrgnzke8062 [address]. [place], [place], [address] D BILI 0.09 mg/dL (Normal) Range: 0.00-0.30 T BILI 0.60 mg/dL (Normal) Range: 0.20-1.00 ALT 120 U/L (Abnormal) Range: 12-78 ALK P 62 U/L (Normal) Range: 45-117 AST 115 U/L (Abnormal) Range: 15-37 GLOB 3.6 g/dL (Abnormal) Range: 2.3-3.5 ALB 3.5 g/dL (Normal) Range: 3.4-5.0 T PROT 7.1 g/dL (Normal) Range: 6.4-8.2 92-Wuy-668467:54 Basic Metabolic Profile (BMP) Comments: [facility] Mhxsabkzln9327 [address] [place], [place], [address] GAP 11 (Normal) Range: 5-15 CO2 25.0 [...] 7-18 GLU 102 mg/dL (Normal) Range: 70-110 11-Pis-643891:54 CBC W/Diff, Automated Comments: [facility] Mwqasbqgvw8563 [address] [place], [place], [address] POIK RARE (Normal) PLT EST ADEQUATE (Normal) [...] 4.2-5.4 WBC 5.1 K/mm3 (Normal) Range: 4.4-11.0 79-Vct-488463:54 CPK Total, Creatine Kinase Comments: [facility] [address] [place], [place], [address] CPK TOTAL 1840 U/L (Abnormal) Range: 26-192 40-Wsz-797033:54 Liver Profile Comments: [facility] [address] [place], [place], [address] D BILI 0.13 mg/dL (Normal) Range: 0.00-0.30 T BILI 0.50 mg/dL (Normal) Range: 0.20-1.00 ALT 70 U/L (Normal) Range: 12-78 ALK P 56 U/L (Normal) Range: 45-117 AST 76 U/L (Abnormal) Range: 15-37 GLOB 3.7 g/dL (Abnormal) Range: 2.3-3.5 ALB 3.5 g/dL (Normal) Range: 3.4-5.0 T PROT 7.2 g/dL (Normal) Range: 6.4-8.2 :55 TEMPORAL ARTERY BX See Note (Normal) Comments: [facility] Quuqhgvlub9056 [address] [place], [place], [address] Comments: Patient: SYLVIA RAMIREZ : 1955 (60/F) Acct Num: [id number] Phys: Lyndon Saavedra MD Unit Num: [id number] Loc: [facility] Specimen: [id number] Received: 01/20/161813 Spec Type : TEMPORAL TISSUES TISSUES: COMMENT Elastic stain with matched control is used in the evaluation of the specimen. GROSS DESCRIPTION Received is one container labeled with the pat ient's name and designated left temporal artery. The specimen consists of a single elongated fragment of wiley tissue measuring 0.5 x <0.1 x <0.1 cm. The specimen is totally submitted in [facility] ette for post fixation serial sectioning. / AM:rickie 01/21/16 TC:5 CPT:60082, 41364 HEADER OPERATION: Left temporal artery biopsy PRE-OP DIAGNOSIS: Increased sed. rate; possible temporal arteri tis; S/P left temporal artery biopsy TISSUE SUBMITTED: Portion of left temporal artery MICROSCOPIC DESCRIPTION Slides are reviewed. MICROSCOPIC DIAGNOSIS Left temporal artery, biopsy: Negative for giant cell arteritis. Mild intimal hyperplasia. SJ:rickie 01/22/16 Signed Hi Hernandez 01/22/16 <signature on file> :05 CBC W/Diff, Automated Comments: Order Date: 01/10/16Order Date: [facility]16[facility] Iikfrypwyu9060 [place], [address] SMEAR COMMENT SCANNED (Normal) Absolute Lymph 0.26 [...] 4.2-5.4 WBC 6.3 K/mm3 (Normal) Range: 4.4-11.0 25-Azo-92535:05 CRP Comments: Order Date: 01/10/16Order Date: 01/10/16[facility] Sviooxttmd5868 [place], [address] C-REACTIVE PROT 192.00 mg/L (Abnormal) Range: 0.0-3.0 Comments: C-Reactive Protein (CRP) provides useful information for thediagnosis, therapy and monitoring of inflammatory processesand associated diseases. For the evaluation of Relative Riskfor Cardiovascular Dise ase, a High Sensitivity CRP (HSCRP)should be ordered. :05 Erythrocyte Sed Rate Comments: Order Date: 01/10/16Order Date: 01/10/16W[facility] Xkgfpsymzp8025 [address] [place], [address] SED RATE 79 mm/h (Abnormal) Range: 0-30 35-Cbe-588456:46 Basic Metabolic Profile (BMP) Comments: [facility] Hhgxwjbchb5856 [address] [place], [address] GAP 3 (Abnormal) Range: 5-15 CO2 27.0 [...] <126 mg/dLsuggests IMPAIRED HOMEOSTASIS per A.D.A. criteria. :46 CBC W/Diff, Automated Comments: [facility] Jauqwhmmaz2334 [address] [place], [address] ANISO 1+ (Normal) PLT EST ADEQUATE (Normal) [...] (Abnormal) WBC 5.1 K/mm3 (Normal) Range: 4.4-11.0 84-Wxx-952075: NEUROMA - See Note (Normal) Comments: [facility] Nbqwsmyofi5894 [place], [address] 00 [facility]/TRAUMATIC Comments: Patient: SYLVIA RAMIREZ : 1955 (60/F) Acct Num: [id number] Phys: Stacie BEARDENTyler Unit Num: [id number] Loc: [facility] [place] Specimen: [id number] Received: 04/15/15 - 0755 Spec Type: N EUROMA TISSUES TISSUES: GROSS DESCRIPTION Received is one container labeled with the patient name and designated right third intermetatarsal space neuroma. The specimen consists of multiple pieces of wiley-yellow soft tissue measuring in aggregate 2.5 x 2 x 0.3 cm. The specimenis totally submitted in one cassette. 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 MICROSCOPIC DIAGNOSIS Soft tissue of right hand, third intermetatarsal space, excision: Consistent with neuroma. AM: 04/16/15 Signed [facility] 04/16/15 <signature on file> 92-Ubq-708340: BREAST BIOPSY (CHOOSE See Note (Normal) Comments: [facility] Qaezgpugtf8921 [place], [address] 10 SITE) Comments: Patient: SYLVIA RAMIREZ : 1955 (59/F) Acct Num: [id number] Phys: Preeti HERRING,Jaxon Unit Num: [id number] Loc: [facility] Specimen: [id number] Received: 02/06/151614 Spec Type: BREAST BX TISSUES [...] one cassette. / AM: 02/07/15 TC:5 CPT: 83076 HEADER OPERATION: U/S guided core biopsy left [...] CHOL 213 mg/dL (Abnormal) Comments: <200 mg/dL Xdyxwqfqa543-517 mg/dL Borderline>240 mg/dL High Risk 54-Tux-739748:03 PARATHORMONE (33119) Comments: PATIENT NOT FASTINGPERFORMED BY: [place] [id number] Information: [id number],2ND ORDER NO DRAW F EE PTH, Intact 23 pg/mL (Normal) Range: 15-65 26-Vry-531377:02 TSH (THYROID STIMULATING Comments: PATIENT NOT FASTINGPERFORMED BY: [employer] LabEdynrp Yifhbc3461 REVShareFormerly [facility] [id number] HORMONE) (59746) TSH 0.733 {uIU/mL} (Normal) Range: 0.450-4.500 :02 CALCIFEDIOL (16176) Comments: PATIENT NOT FASTINGPERFORMED BY: [employer] [facility] Ydzpmn9088 [facility] [place] [id number] Vitamin D, 25-Hydroxy 28.9 ng/mL (Abnormal) Range: 30.0-100.0 Comments: Vitamin D deficiency has been defined by the [place] of[place] and an Endocrine Society practice guideline as alevel of serum 25-OH vitamin D less than 20 ng/mL (1,2).The Endocrine Society went on to further define vitamin Dinsufficiency as a level between 21 and 29 ng/mL (2).1. IOM ([place] of [employer]). 2010. Dietary reference intakes for calcium and D. [place]: The National Academies Press.2. Holick MF, Saida OCONNOR, Esdras JIMENEZ, et al. Evaluation, treatment, and prevention of vitamin D deficiency: an Endocrine Society clinical practice guideline. JCEM. 2010; 96(7):1911-30. [id number]-Hgb-[id number]:02 METABOLIC PANEL, Comments: PATIENT NOT FASTINGPERFORMED BY: [facility] [id number] [facility] [id number] Information: [id number] COMPREHENSIVE (91434) ALT (SGPT) 77 [iU]/L (Abnormal) Range: 0-32 [...] Glucose, Serum 110 mg/dL (Abnormal) Range: 65-99 [id number]-Jxw-053719:28 CBCD Comments: NO CHARGE REDRAW ANC 7.5 [...] 4.2-5.4 WBC 8.6 K/mm3 (Normal) Range: 4.4-11.0 [id number]-Yvr-[id number] SED Comments: NO CHARGE REDRAW tSEDRATE 20 mm/h (Normal) Range: 0-30 46-Ysv-800431:42 Urinalysis, Office (42189) UA - LEUKOCYTE ESTERASE Negative (Normal) UA - NITRITE Negative (Normal) URINE UROBILINGN MARIE TIMED Normal mg/dL (Normal) UA - PROTEIN Negative mg/dL (Normal) UA - PH 7 (Normal) UA - BLOOD Negative (Normal) UA - SPECIFIC GRAVITY 1.020 (Normal) UA - KETONES Small mg/dL (Normal) UA - BILIRUBIN Negative (Normal) UA - GLUCOSE Negative (Normal) [id number]-[id number] Systemic Lupus Profile Comments: PATIENT NOT FASTINGPERFORMED BY: [id number] [id number] Information: [id number] ([id number]) Anti-DNA (DS) Ab Qn 3 {IU/mL} (Normal) Range: 0-9 Comments: Negative <5 Equivocal 5 - 9 Positive >9 Sjogren's Anti-SS-B 0.2 {AI} (Normal) Range: 0.0-0.9 Sjogren's Anti-SS-A <0.2 {AI} (Normal) Range: 0.0-0.9 Antichromatin Antibodies <0.2 {AI} (Normal) Range: 0.0-0.9 RA Latex Turbid. 8.4 {IU/mL} (Normal) Range: 0.0-13.9 Iraheta Antibodies <0.2 {AI} (Normal) Range: 0.0-0.9 COIL PLACER Antibodies <0.2 {AI} (Normal) Range: 0.0-0.9 [id number]-Csu-[id number]:05 HAND MIN 3 VIEWS Radiology Report See [...] IMPRESSION:Soft tissue swelling. Signed:Tobin Sawant M.D.November 25 at 2:42:01 PM [id number] Signed GP/GP If you are the referring physician and would like to consult with theradiologist who provided this interpretation, please contact Amber calixto M.D. at [phone]. If this radiologist is unavailable, youwill be directed to another radiologist to assist. If you are a patient with a question regarding this report, pleasecontactyour referr ing physician directly. Professional Interpretation Provided By: Maimaibao, Phone , These documents contain legally protected [...] documents. Dictated on 11/25/12 1442 by Vera Sawant MDscribed on 11/25/12 1454 by ITS IMPORTSign by Tobin Sawant MD on 11/25/124 Sign by: Tobin Sawant MD 3-Tuo-224374:04 HAND MIN 3 VIEWS Radiology Report See [...] swelling. Signed:Tobin Sawant M.D.November at 2:42:30 PM [id number] Signed GP/GP If you are the referring physician and would like to consult with theradiologist who provided this interpretation, please contact Tobin Sawant M.D. at [phone]. If this radiologist is unavailable, youwill be directed to another radiologist to assist. If you are a patient with a question regarding this report, pleasecontactyour daniel fry physician directly. Professional Interpretation Provided By: Maimaibao, Phone , These documents contain legally protected [...] destructionofthese documents. Dictated on 11/25/12 1442 by Judy harden MD,Verascribed on 11/25/12 1453 by ITS IMPORTSign by Tobin Sawant MD on 11/25/12 1454 Sign by: Tobin Sawant MD 4-Ehv-664622:04 WRIST MIN 3 VIEWS Radiology See Note [...] Sawant M.D.November 25, 2012 at 2:42:31 PM [id number] Signed GP/GP If you are the referring physician and would like to con sult with theradiologist who provided this interpretation, please contact Jaz Falk at [phone]. If this radiologist is unavailable, youwill be directed to another radiologist to ed slaughter. If you are a patient with a question regarding this report, pleasecontactyour referring physician directly. Professional Interpretation Provided By: Maimaibao, Phone , These documents contain legally protected [...] documents. Dictated on 11/25/12 1442 by Loly HERRING,Ruranscribed on 11/25/12 1456 by ITS IMPORTSign by Tobin Sawant MD on 11/25/12 1457 Sign by: Tobin Sawant MD 1-Upo-341095:04 WRIST MIN 3 VIEWS Radiology See Note [...] Sawant M.D.November 25, 2012 at 2:43:33 PM [id number] Signed GP/GP If you are the referring physician and would like to co nsult with theradiologist who provided this interpretation, please contact Jaz Falk at [phone]. If this radiologist is unavailable, youwill be directed to another radiologist to [facility]. If you are a patient with a question regarding this report, pleasecontactyour referring physician directly. Professional Interpretation Provided By: Maimaibao, Phone ,Fax These documents contain legally protected [...] 11/25/12 1456 Sign by: Tobin Sawant MD 5-Ooy-903728:50 CCP ANTIBODY (81757) Comments: PATIENT NOT FASTINGPERFORMED BY: CB [facility] Isydbh6525 [facility] [id number] BY: BN [facility] [address] [id number] CCP Antibodies IgG/IgA 21 {units} (Abnormal) Range: 0-19 Comments: Negative <20 Weak positive 20 - 39 Moderate positive 40 - 59 Strong positive >59 4-Vcc-028726:50 SED RATE ERYTHROCYTE Comments: PATIENT NOT FASTINGPERFORMED BY: [facility] Bqyzbi5077 [facility] [place] [id number] BY: [address] [id number] (69587) Sedimentation Rate-Westergren 2 mm/h (Normal) Range: 0-40 3-Qfl-352573:50 C-REACTIVE PROTEIN (55304) Comments: PATIENT NOT FASTINGPERFORMED BY: [facility] Pauxks7194 [facility] [id number] BY: [address] [id number] C-Reactive Protein, Quant 1.6 mg/L (Normal) Range: 0.0-4.9 9-Ahs-589127:50 TSH (86834) Comments: PATIENT NOT FASTINGPERFORMED BY: [facility] Xidjoz8596 [facility] [id number] BY: [address] [id number] TSH 1.410 {uIU/mL} (Normal) Range: 0.450-4.500 6-Jkl-816751:50 RHEUMATOID FACTOR-QUANT Comments: PATIENT NOT FASTINGPERFORMED BY: [facility]6370 [facility] [id number] BY: [address] [id number] (92293) RA Latex Turbid. 5.4 {IU/mL} (Normal) Range: 0.0-13.9 4-Fmi-593087:50 PATRICK (ANTINUCLEAR ANTIBODY) Comments: PATIENT NOT FASTINGPERFORMED BY: [facility] Rhgwuk7182 [facility] [id number] BY: [address] [id number] (69802) PATRICK Direct Positive (Abnormal) 3-Tkp-944157:50 CBC WITH MANUAL DIFF Comments: PATIENT NOT FASTINGPERFORMED BY: [facility] Sopado4420 [facility] [id number] BY: BN [facility] [id number] Inf ormation: [id number] ([id number]) Immature Grans (Abs) 0.0 {x10E3/uL} (Normal) Range: [...] 3.77-5.28 WBC 4.7 {x10E3/uL} (Normal) Range: 4.0-10.5 6-Hzb-697292:50 METABOLIC PANEL, Comments: PATIENT NOT FASTINGPERFORMED BY: [facility] HospitalAfhpmp0468 [facility] [id number] BY: [facility] [id number] [facility] (78930) ALT (SGPT) 22 [iU]/L (Normal) Range: 0-32 [...] Glucose, Serum 93 mg/dL (Normal) Range: 65-99 17-Dov-32508:49 LIPID,HEALTHPNT VLDL 14 mg/dL (Normal) Range: 5-40 [...] PANEL, COMPREHENSIVE Comments: PATIENT WAS FASTINGPERFORMED BY: [facility] Avdsym2040 [facility] [id number] ([id number]) ALT (SGPT) 20 [iU]/L (Normal) Range: 0-40 [...] Glucose, Serum 93 mg/dL (Normal) Range: 65-99 :18 CBC WITH MANUAL DIFF Comments: PATIENT WAS FASTINGPERFORMED BY: [facility] Obyylj5875 [facility] [id number] Information: [id number] (57461) Baso (Absolute) 0.0 {x10E3/uL} (Normal) Range: 0.0-0.2 [...] {x10E3/uL} (Abnormal) Range: 4.0-10.5 :18 LIPID PANEL (63497) Comments: PATIENT WAS FASTINGPERFORMED BY: [facility] HospitalFmxmoo4225 [facility] [id number] LDL Cholesterol Calc 128 mg/dL (Abnormal) Range: [...] Report See Note (Normal) Comments: Exam Number: [id number] UNILATERAL LEFT RIBS Several views of the [...] Report See Note (Normal) Comments: Exam Number: [id number] DORSAL SPINE AP and lateral views were [...] Follow up in 1 week please neida next for Dr. Looney to injedt her knees [...] unspecified laterality Planned Observations METABOLIC PANEL, COMPREHENSIVE (92545)Indication: Hyperlipidemia, mild On: :49 Request LIPOPROTEIN, BLD, BY NMR (06118)Indication: Hyperlipidemia, mild On: :49 Request HEPATIC FUNCTION PANEL (92047)Indication: Hyperlipidemia, mild On: :28 Request LIPOPROTEIN, BLD, BY NMR (33006)Indication: Hyperlipidemia, mild On: :28 Request CBC, Platelets & Auto Diff (50615)Indication: Headache, occipital On: :26 Request Comments: all labs stat C-Reactive Protein (56985)Indication: Headache, occipital On: : Request Sed Rate Erythrocyte (31955)Indication: Headache, occipital On: : Request Sed Rate Erythrocyte (37615)Indication: Headache, occipital On: :09 Request LIPID PANEL (13122)Indication: Osteoarthrosis, not specified whether generalized/localized, lower leg On: 2-Stp-435795:11 Request Parathyroid Hormone-related Peptide (PTH-rP) (31995)Indication: Abnormal blood chemistry On: 09-Wll-524133:02 Request METABOLIC PANEL, COMPREHENSIVE (70448)Indication: Swelling On: :15 Request Comments: Add to standing order to be done today CPK TOTAL & ISOENZYMES (77015)Indication: Elevated CPK On: 14-Huf-166752:14 Request Comments: repeat today add to standing labs C-Reactive Protein (20618)Indication: Elevated CPK On: 53-Vyd-404985:14 Request Comments: include with standing labs today TSH (61422)Indication: Swelling On: 08-Oiv-493877:12 Request Comments: Add to current standing order for today only Print this for pt MICROALBUMIN URINE QUANT (58755)Indication: Swelling On: 53-Ywp-015765:43 Request MICROALBUMIN: CREATININE RATIO (79569) AND (04045)Indication: Swelling On: :43 Request EXTRCTBL NUCLR ANTGEN EA (08959) test code 071156Grozvnpznv: Abnormal blood chemistry On: Request ANTI-Sm (ANTI IRAHETA ANTIBODY) (77873) test code 501126Aedktocfqb: Abnormal blood chemistry On: Request ANTI-COIL PLACER (ANTI RIBONUCLEAR PROTEIN ANTIBODY) (17574) test code 893062Gfrtkvibxm: Abnormal blood chemistry On: Request DNA ANTIBODY-NATV/DBL ST (68558) test code 964089Xuahltaprr: Abnormal blood chemistry On: Request URINALYSIS (78444)Indication: Malignant neoplasm of breast (female) On: :27 Request CBC (Auto) (70031)Indication: Malignant neoplasm of breast (female) On: :22 Request Metabolic Panel, Comprehensive (00160)Indication: Malignant neoplasm of breast (female) On: :22 Request Planned Procedures INJECTION, PROLIA (J0897)By: On: 24-Feb-2018 Intent Visit, Nurse Comments: [id number] syringer arm, SCMLONG Bone Density StudyBy: Dahiana On: 01-Feb-2018 Lorena Patel MD, MD, Dana M Comments: due after 03-10-18 INJECTION, PROLIA (J0897)By: On: 14-Jul-2017 Amanda Talbot MD, Lorena Talbot MD, Comments: lot: [id number]: 09/2019site/route: R arm/SQamt: prefilled syringeVIS signed when applicableBLU Waters INJECTION, PROLIA (J0897)By: On: 17-Dec-2016 Amanda Talbot MD, Lorena Talbot MD, Comments: Lot:[id number]:02/11Dose:60mlRoute:sub q Site:r armGiven By:JKMVIS signed Lorena Lewis Radiology - ChestBy: Dahiana On: 02-Jul-2016 Lorena Patel MD, MD, Dana M Comments: recheck approx. 4 weeks check before 08-03-16 follow up Radiology - Chest- PA and On: 02-Jul-2016 Intent LatBy: Lorena Talbot MD, MD, Dana M Inhaler Demo (34361)By: Dahiana On: 02-Jul-2016 Lorena Patel MD, MD, Dana M Aerosol Treatment (81983)By: On: 02-Jul-2016 Lorena Holbrook MD, MD, Dana M INJECTION, PROLIA (J0897)By: On: 12-Jun-2016 Lorena Holbrook MD, MD, Comments: lot: [id number]: 08/12site/route: R arm/SQamt: prefilled syringe 60mgVIS signed when applicableBLU Waters LE Arterial Exam - LowerBy: On: 02-Apr-2016 Lorena Holbrook MD, MD, Dana M Aerosol Treatment (85283)By: On: 04-Mar-2015 Pat Bright CNP RIGHT MAMMOGRAM (53510)By: On: 04-Mar-2015 Pat Bright CNP Breast Ultrasound - LeftBy: On: 01-Jan-2015 Pat Bright CNP Comments: call results to Nabil at [facility] LEFT MAMMOGRAM ([id number])By: Dewayne On: 01-Jan-2015 Pat Patel CNP Comments: call Agus Buchanan at [facility] with results Bone Density StudyBy: Dahiana On: 31-Jan-2014 Lorena Patel MD, MD, Dana M BILATERAL MAMMOGRAMS (04987)By: On: 31-Jan-2014 Lorena Holbrook MD, MD, Dana M Kenalog Injection, 10 mgm On: 05-Dec-2013 Intent (J3301)By: Lorena Talbot MD Comments: lot: [id number]: 04/09site/route: L and R knee/joint injamt: 1cc in each kneeVIS signed when applicablex8 Dahiana HERRING, Lorena Lewis Echo CompleteBy: Dewayne GARCIA, On: 11-Aug-2013 Intent Asuncion Eprescribed prescriptions On: 11-Aug-2013 Intent (G8553)By: Dewayne GARCIA, Asuncion Eprescribed prescriptions On: 18-Jul-2013 Intent (G8553)By: Lorena Talbot MD, MD, Dana M Eprescribed prescriptions On: 08-Jun-2013 Intent (G8553)By: Becky Bryan DO Wax CurettesBy: Randi THOMAS, On: 08-Jun-2013 Intent Becky Ear Irrigation (23375)By: On: 08-Jun-2013 Intent Becky Bryan DO Comments: small amt came out of both ears but still thin film on rim Radiology - Wrist - On: 25-Nov-2012 Intent BilateralBy: Becky Bryan DO Radiology - Hand - BilateralBy: On: 25-Nov-2012 Intent Becky Bryan DO IMMUNIZATION ADMIN (75418)By: On: 04-May-2012 Intent Katerina Broderick Comments: Lot:[id number]:07-30-13Dose:prefilledRoute:IMSite:R armGiven By:ALYSSA COMPLETE ON THIS DATE IMMUNIZATION ADMIN (95353)By: On: 09-Jun-2011 Intent Eneida Beth Comments: Lot:[id number]:01/30/13Amt:prefilledRoute:IMSite:right deltGiven By: KENNEDY Greene IMMUNIZATION ADMIN (51206)By: On: 11-May-2011 Intent Shavon Bunch LPN Comments: Lot #[id number]/1/13Site-right deltoidgiven by: Jeffrey Bunch LPN TDAP VACCINE >7 IM (80046)By: On: 04-May-2011 Intent Lorena Talbot MD, MD, Dana M IMMUNIZATION ADMIN (58793)By: On: 04-May-2011 Intent Lorena Talbot MD, MD, Lorena M Kenalog Injection, 10 mgm On: 27-Jun-2010 Intent (J3301)By: Lorena Talbot MD, MD, Dana M Kenalog Injection, 10 mgm On: 27-Jun-2010 Intent (J3301)By: Lorena Talbot MD, MD, Dana M DXA, BONE DENSITY, AXIAL On: 14-Nov-2009 Intent SKELETON (14853)By: Dahiana HERRING, Comments: estrogen def, medication high risk Lorena Hopson MD Venous Doppler - LeftBy: On: 25-Sep-2009 Intent Lorena Talbot MD, MD, Comments: lower Lorena Lewis Ftoywkkjw-Ksg-Xjxz (80008)By: On: 31-May-2009 Intent Lorena Talbot MD, MD, Comments: pain along rib Lorena Lewis Radiology - Thoracic SpineBy: On: 31-May-2009 Intent Lorena Talbot MD, MD, Dana M PHYSICAL THERAPY EVALUATION On: 03-Apr-2008 Intent (35637)By: Dewayne MEDIC TECHNICIAN, Pat Dowling Radiology - ChestBy: Ciesa MEDIC TECHNICIAN, On: 03-Apr-2008 Intent Asuncion Kenalog Injection, 10 mgm On: 04-Nov-2007 Intent (J3301)By: Lorena Talbot MD Comments: x 4 Lorena Talbot MD EMGBy: Lorena Talbot MD On: 02-Sep-2007 Intent Lorena Talbot MD Nerve ConductionBy: Dahiana HERRING, On: 02-Sep-2007 Intent Lorena Hopson MD Comments: upper extremities bilateral Planned Medications INJECTION, PROLIA Ordered: 12-Jun-2016 Pending Lorena Talbot MD, MD, Dana M INJECTION, PROLIA Ordered: 17-Dec-2016 Pending Lorena Talbot MD, MD, Dana M INJECTION, PROLIA Ordered: 14-Jul-2017 Pending Lorena Talbot MD, MD, Dana M INJECTION, PROLIA Ordered: 24-Feb-2018 Pending Visit, Nurse INJECTION, TRIAMCINOLONE ACETONIDE, NOT OTHERWISE SPECIFIED, 10 MG Ordered: 27-Jun-2010 Pending Dahiana HERRING, Lorena Talbot MD, Lorena Lewis INJECTION, TRIAMCINOLONE ACETONIDE, NOT OTHERWISE SPECIFIED, 10 MG Ordered: 27-Jun-2010 Pending Dahiana HERRING, Lorena Talbot MD, Lorena Lewis INJECTION, TRIAMCINOLONE ACETONIDE, NOT OTHERWISE SPECIFIED, 10 MG Ordered: 05-Dec-2013 Pending Dahiana HERRING, Lorena Talbot MD, Lorena Lewis Instructions Name Dates Details Nonsmoker : Patient [...] : Patient Instructions Indication: Cerumen impaction Encounters Office Visit On: 24-Feb-2018 14:47 Encounter Reason: [...] for Follow up acute care visit: In [place] and noted left arm red streak from [...] for Earache: will be leaving wednesday for [facility]. had sinusitis month ag o. feel great [...] Diagnosis: Obesity,unspecified (278.00), Carpel tunnel syndrome (354.0), WWV End: 14-Nov-2009 13:25 Comprehensive Internal Medicine Office Visit On: 25-Sep-2009 9:12 Encounter Reason: Calf pain - The onset of the pain has been acute and has been occurring in an intermittent pattern for 3 days. The course has been recurrent. The pain is described as moderate. The symptoms exercise. Th End: 25-Sep-2009 9:42 e symptoms are relieved by elevating the legs (decreases the pain but the swelling remains). The symptoms have been associated with calf swelling (left). Note for Calf pain: [place] to [place] and at [employer]. wearing fit flops. in - left knee injury and better now.Encounter Diagnosis: [...] incident not at work (working out at [employer]) and has been occurring in an intermittent [...] Osteoarthritis (715.96), Sleep disorder (780.50), Obesity,unspecified (278.00), [facility] Comprehensive Internal Medicine Office Visit On: 31-May-2009 [...] and type alot and also restart at [facility] Diagnosis: Parasthesia (782.0) Comprehensive Internal Medicine Office [...]
--- OUTSIDE RECORDS SUMMARY | 2018-05-19 10:02 | XMS RPT_ITS | Continuity of Care Document ---
:1955 Author Organization [facility] Address [address] [facility] [address] [place] [address] Phone Care Team Providers Name Role Phone [...] Comments: [place] in [place] here in [place]. some PND no reflux. Status: Active Deliveries (Parity) Comments: 2 Status: Active Disordered sleep (G47.9, 780.50) Comments: using calm day and working stay away from [facility]. 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 Status: Active Interstitial lung disease (J84.9, 515) Comments: fall 2014 lung fcn was normal - consultants intern dr Liang at [facility] 11-16 PFTs normal stable Status: Active [...] PPD (R76.11, 795.51) Comments: see ID at [facility] in past Status: Active Pregnancies () [...] with patient xrays look up from the [facility]. CPPD. Status: Inactive as of 11-Jul-2015 Lipoma (D17.9, 214.9) Status: Inactive as of 11-Jul-2015 Low back pain (M54.5, 724.2) Status: Inactive as of 03-Oct-2008 Malnutrition (E46, 263.9) Status: Inactive as of 11-Jul-2015 Neck pain (M54.2, 723.1) Status: Inactive as of 22-Sep-2016 Obesity, unspecified (E66.9, 278.00) Status: Inactive as of 22-Sep-2016 Osteoarthritis (M17.10, 715.96) Comments[facility] [...] knee surgery left 1999 Completed bilateral foot [id number] Completed Carpal Tunnel Completed Comments: left 2010 Dr. Chandler Carpal Tunnel right wrist Completed Comments: Dr. Chandler 06-03-10 Colonoscopy Completed Comments: 11-06-13 Dr. Gimenez repeat in 10 years Hernia 1998 Completed Hysterectomy, Total Completed Comments: Dr. Mabry Lumpectomy Completed Comments: 06/2006-lft breast Tonsillectomy Completed Comments: 1960 Date Value Details 30-Nov-2017 Emergency Department Summary Result: Comments: See Note; NOTES: [facility] Medical Records Department [address] [place] [address] Emergency Department Summary 11/30/17 0934 MR#: [id number] Acct: [id number] Name: SYLVIA RAMIREZ Rep #: [id number] : 1955 62 From: Eliezer Ojeda DO PCP: Lorena Talbot MD Status: REG ER - ER Visit Summary Date of Service: 11/30/17 Chief Complaint: [] History of Present Il lness: The patient is a 62 F [] Physical Examination: [] Test Results: [] Emergency Department Course and Treatment: [] Treatment Plan: [] Disposition: [] Impression: [] This note was generated with Swoon Editionsation software. It may contain incorrect words, spelling, and punctuation that were not noted in review of the chart prior to signing ED Disposition - Plan for ED Patient: Dispositio n: Home or Assisted Living Chief Complaint: Abd Pain Diagnosis: Right upper quadrant abdominal pain of unknown etiology Instructions: ED Abdominal Pain Unkn Cause Prescriptions: Hydrocodone Bitart/Apap 5-325 [Eldorado 5MG-325MG] 1 tab PO Q6H PRN PRN 3 Days #10 tab PRN Reason: Pain Omeprazole [Prilosec] 20 mg PO DAILY #30 cap Referrals: Lorena Talbot MD [Primary Care Provider] - What to do if you have Problems For any increased pain, shortness of breath, bleeding, nausea or vomiting, chest pain, or any unexpected problems, contact your Primary Care Provider. Call [facility] ([phone]) or report to the closest Emergency Room. Call 911 if necessary. 11/30/17 0937 <Electronically signed by Eliezer Ojeda DO> Date Eliezer sanchez DO Cosigner Signature (If Indicated): Date CC: Lorena Talbot MD 30-Nov-2017 Emergency Department Summary Result: Comments: See Note; NOTES: [facility] Medical Records Department [address] [place] [address] Emergency Department Summary 11/30/17 0417 MR#: [id number] Acct: [id number] Name: SYLVIA RAMIREZ Rep #: [id number] : 1955 62 From: Bladimir Parikh MD PCP: Lorena Talbot MD Status: REG ER ADDENDUM by Eliezer Ojeda DO on 11/30/17 at 0934 Care of the patient was turned over to me a t 7 AM. Right upper quadrant ultrasound was obtained and was normal. Patient was given a prescription for Prilosec and a short course of [place]orado. Patient was instructed to follow-up with her [...] given opti on of staying until the crown perforator operator presents in the morning for ultrasound or [...] and vomiting This note was generated with Be-Bound dictation software. It may contain incorrect words, [...] your Primary Care Provider. Call [facility] ([phone]) or report to the closest Emerge ncy Room. Call 911 if necessary. 11/30/17 0702 <Electronically signed by Bladimir Parikh MD> Date Bladimir Parikh MD Cosigner Signature (If Ind icated): Date CC: Lorena Talbot MD 30-Nov-2017 Emergency Department Summary Result: Comments: See Note; NOTES: [facility] Medical Records Department [address] [place] [address] Emergency Department Summary 11/30/17 0417 MR#: [id number] Acct: [id number] Name: SYLVIA RAMIREZ Rep #: [id number] : 1955 62 From: Bladimir Parikh MD [...] or night sweats. She denies any ocular, coding compliance auditor y or visual symptoms. She denies [...] was given option of staying until the crown perforator operator presents in the morning for ultrasound or [...] and vomiting This note was generated with Intelligent Fingerprinting s Horn[employer] Network[employer]. It may contain incorrect words, spelling, and [...] your Primary Care Provider. Call [facility] ([phone]) or report to the closest Emergency Room. Call 911 if necessary. 11/30/17 0702 <Electronically signed by Bladimir Parikh MD&#62 ; Date Bladimir Parikh MD Cosigner Signature (If Indicated): Date CC: Lorena Talbot MD 30-Nov-2017 Gallbladder Result: Comments: See Note; NOTES: [facility] Imaging Services [address] [place] [address] [place] [address] Gallbladder MR#: [id number] Acct: [id number] Name: SYLVIA RAMIREZ Rep #: [id number] : 1 05/18/1954 F 62 From: Joseph Tony DO PCP: Lorena Talbot MD Status: REG ER Study: Gallbladder Date of Exam: 11/30/17 Exam# [id number] Ordering Dr: Bladimir Parikh MD STUDY: ABDOMINAL [...] CC: Lorena Talbot MD; Bladimir Parikh MD Dredge Engineer: Signed 16-Mar-2017 SCREENING MAMM (CAD), BILAT Result: Comments: See Note; NOTES: [facility] Imaging Services [address] [place] [address] SCREENING MAMM (CAD), BILAT MR#: [id number] Acct: [id number] Name: SYLVIA RAMIREZ Rep #: [id number] : 1955 F 61 From: Tobin Sawant MD PCP: Lorena Talbot MD Status: REG CLI Study: SCREENING MAMM (CAD), BILAT Date of Exam: 03/16/17 Exam# [id number] Ordering Dr: Yomi Pérez AMMOGRAPHY - BILATERAL [...] delay biopsy of a clinically suspicious abnormality. [id number] Electronically Signed: Tobin Sawant MD at 10:39 EST Tel [phone], Service support , CC: Lorena Talbot MD; Yomi Pérez DO Dredge Engineer: Signed 02-Jul-2016 Chest PA and Lateral Result: Comments: See Note; NOTES: [facility] Imaging Services [address] [place] [address] Verdana 4d Chest PA and Lateral MR#: [id number] Acct: [id number] Name: SYLVIA RAMIREZ Rep #: [id number] : 1955 F 61 From: Yecenia Khan MD PCP: Lorena Talbot MD Status: REG CLI Study: Chest PA and Lateral Date of Exam: 07/02/16 Exam# [id number] Ordering Dr: Lorena Talbot MD STUDY: X-RAY [...] MD at 15:38 EST , Service support [phone], CC: Lorena Talbot MD Dredge Engineer: Signed 10-Apr-2016 Vascular Test/LEAS/UEAS Result: Comments: See Note; NOTES: [facility] Cardiovascular Services [address] [place] [address] Verdana 4d Lower Ext Art Exam w/o Exercis MR#: [id number] Acct: [id number] Name: SYLVIA GUADARRAMA Rep #: [id number] : 1955 61 From: Jim Martin MD [...] bilaterally. Jim Vidal MD T: NTS JOB: [id number] 04/10/16 1306 <Electronically signed by Jim Martin MD> Date Jim Martin MD CC: Lorena Talbot MD Date Dictated: 04/08/161722 Date Transcribed: 04/08/161722 Dredge Engineer: Signed 10-Mar-2016 Bilat Scrn Digital AND CAD Result: Comments: See Note; NOTES: [facility] Imaging Services [address] [place] [address] Verdana 4d Bilat Scrn Digital AND CAD MR#: [id number] Acct: [id number] Name: SYLVIA RAMIREZ Rep #: [id number] : 1955 F 60 From: Tobin Sawant MD PCP: Lorena Talbot MD Status: REG CLI Study: Bilat Scrn Digital AND CAD Date of Exam: 03/10/16 Exam# [id number] Ordering Dr: Jose Pérez ul DO MAMMOGRAPHY [...] these results will be sent to [facility] by the facility within 30 days. Approximately 10% of breast cancers are not detected by mammography. A normal mammogram should not delay biopsy of a clinically suspicious abnormality. [id number] Elect ronically Signed: Tobin Sawant MD at 11:03 EST Tel [phone], Service support [phone], CC: Lorena Talbot MD; Yomi Pérez DO Dredge Engineer: Signed 10-Mar-2016 Dexa Bone Density Study (HP) Result: Comments: See Note; NOTES: [facility] Imaging Services [address] [place] [address] Verdana 4d Dexa Bone Density Study (HP) MR#: [id number] Acct: [id number] Name: MARCELA RAMIREZ Rep #: [id number] : 1955 F 60 From: Tobin Sawant MD PCP: Lorena Talbot MD Status: REG CLI Study: Dexa Bone Density Study (HP) Date of Exam: 03/10/16 Exam# [id number] Ordering Dr: KODY NESBITT STUDY: DUAL ENERGY [...] Tobin Sawant MD at 10:18 EST Tel [phone], Service support [phone], CC: Lorena Talbot MD; KODY NESBITT Dredge Engineer: Signed 07-Jul-2015 History and Physical Exam Result: Comments: See Note; NOTES: [facility] Medical Records Department [address] [place] [address] History and Physical 07/07/15 1809 MR#: [id number] Acct: [id number] Name: ALICIA RAMIREZETTE Rep #: [id number] : 1955 60 From: Lucy Figueroa MD [...] mentioned above presented to the emergency room [facility] of left upper extremity soreness, pain, erythema [...] [Vitamin 2,000 unit PO DAILY 07/07/15 D] [place]-3 Fatty Acids/Fish Oil 2 each PO DAILY 07/07/15 [[place] 3 1,000 mg Softgel] Turmeric [Turmeric Root] [...] 92.3 H Lymph % (Auto) 4.1 L [place] % (Auto) 2.2 Eos % (Auto) 1.0 [...] Subcu Lovenox. This note was generated with Be-Bound dictation software. It may contain incorrect words, spelling, and punct uation that were not noted in checking the note before signing. 07/07/15 1818 <Electronically signed by Lucy Figueroa MD> Date Lucy Figueroa MD Cosigner Signature (if applicable): Date CC: Lorena Talbot MD; Lucy Figueroa Signed 18-Apr-2015 Operative Report Result: Comments: See Note; NOTES: [facility] Medical Records Department [address] [place] [address] Operative Report MR#: [id number] Acct: [id number] Name: KIRSTEN RAMIREZ Rep #: [id number] : 1955 60 From: Galileo Quinones DPM PCP: Lorena Talbot MD Status: [facility] DATE OF SERVICE: DATE OF SURGERY: April [...] needed. Galileo Quinones DPM T: NTS JOB: [id number] 04/18/15 0757 <Electronic ally signed by Galileo Quinones DPM> Date Galileo Quinones DPM Cosigner Signature (If Indicated): Date CC: Lorena Talbot MD; Galileo Quinones DPM Date Dictated: 04/12/15 1648 Date Transcribed: 04/12/151647 Dredge Engineer: Signed 12-Apr-2015 Discharge Instruction Result: Comments: See Note; NOTES: [facility] Medical Records Department [address] [place] [address] Instructions for Home/Discharge Instructions 04/12/15 1639 MR#: [id number] Acct: [id number] Name: SYLVIA RAMIREZ Rep #: [id number] : 1955 60 From: Galileo Quinones DPM [...] and Lateral Result: Comments: See Note; NOTES: [facility] Imaging Services [address] [place] [address] Verdana 4d Chest PA and Lateral MR#: [id number] Acct: [id number] Name: ALICIA RAMIREZETTE Rep #: [id number] : 1955 F 60 From: Jose Fagan MD PCP: Lorena Talbot MD Status: PRE SDC Study: Chest PA and Lateral Date of Exam: 04/04/15 Exam# [id number] Ordering Dr: Virgen Quinones DPM STUDY: X-RAY [...] FACR at 13:58 EST , Service support [phone], RAD/Chest PA and Lateral IMPRESSION: No signs of acute cardiopulmonary disease Electronically Signed: Jose Fagan MD, FACR at 13:58 EST , Service support [phone], CC: Lorena Talbot MD; Galileo Quinones DPM Dredge Engineer: Signed 29-Mar-2015 EKG ([id number]) Comments: nsr no acute chg poor R wave progression Result: [MEASUREMENTS ANALYSIS] Date of Test: 03/29/2015 13:38:32; Heart Rate: 73; NV Interval: 180; QRS: 88; QT Interval: 380; Corrected QT Interval (QTc): 402; P Wave [place]: 33; QRS Wave [place]: 30; T Wave [place]: 29; Blood Pressure: 120/78 [ECG DIAGNOSTIC STATEMENTS] Date of Test: 03/29/2015 13:38:32; Summary: Sinus Rhythm WITHIN NORMAL LIMITS -Mar-2015 Inital Evaluation - PT Result: Comments: See Note; NOTES: [facility] [address] [place] [address] Fax REHABILITATION SE DEL CID INITIAL EVALUATION MR#: [id number] Acct: [id number] Name: SYLVIA RAMIREZ Rep #: [id number] : 1955 60 From: Gurdeep Carson Referring Dr.: Galileo Quinones DPM Status: REG RCR Ins urance: [facility] Date: Patient's Visit Information SYLVIA RAMIREZ is [...] to be FAXED BACK to us at [phone] for Medicare purposes. Please let me know if there are questions or concerns regarding this plan of care. Physician Signature: Date: <Electronically signed by Gurdeep Carson > 03/28/15 1140 CC: Lorena Talbot MD; Galileo Quinones DPM [facility] Jeanne d For Medicare only, by signing this I certify the plan of care. Physicians Signature Date 08-Mar-2015 Unilat Rt Scrn Digital AND CAD Result: Comments: See Note; NOTES: [facility] Imaging Services [address] [place] [address] Verdana 4d Unilat Rt Scrn Digital AND CAD MR#: [id number] Acct: [id number] Na me: SYLVIA RAMIREZ Rep #: [id number] : 1955 F 59 From: Tobin Sawant MD PCP: Lorena Talbot MD Status: REG CLI Study: Unilat Rt Scrn Digital AND CAD Date of Exam: 03/08/15 Exam# [id number] Ordering Dr: Pat Buchanan MAMMOGRAPHY - UNILATERAL [...] delay biopsy of a clinically suspicious abnormality. [id number] Electronically Signed: Tobin Sawant MD 201 09/03/12 at 11:11 EST Tel [phone], Service support [phone], CC: Pat Buchanan; Lorena Talbot MD Dredge Engineer: Signed 04-Mar-2015 Lower Ext/No Jt/w/o Result: Comments: See Note; NOTES: [facility] Imaging Services [address] [place] [address] Verdana 4d Lower Ext/No Jt/w/o MR#: [id number] Acct: [id number] Name: Cirilo RAMIREZ Rep #: [id number] : 1955 F 59 From: Joes Fagan MD PCP: Lorena Talbot MD Status: REG CLI Study: Lower Ext/No Jt/w/o Date of Exam: 03/04/15 Exam# [id number] Ordering Dr: Ward Quinones DPM STUDY: MRI [...] at 10:47 EST Tel , Service support [phone], CC: Lorena Talbot MD; Galileo Quinones DPM Dredge Engineer: Signed 15-Jan-2015 Breast Limited Unilateral Result: Comments: See Note; NOTES: [facility] Imaging Services [address] [place] [address] Ultrasound Report MR#: [id number] Acct: [id number] Name: SYLVIA RAMIREZ Rep #: [id number] : 1955 F 59 From: Tobin Sawant MD PCP: Lorena Talbot MD Status: REG CLI Study: Breast Limited Unilateral Date of Exam: 01/15/15 Exam# [id number] Ordering Dr: Pat Buchanan STUDY : ULTRASOUND [...] Tobin Sawant MD at 13:27 EDT Tel [phone], Service support [phone], CC: Pat Buchanan ; Lorena Talbot MD Dredge Engineer: Signed 01-Jan-2015 Breast Limited Unilateral Result: Comments: See Note; NOTES: [facility] Imaging Services [address] [place] [address] Ultrasound Report MR#: [id number] Acct: [id number] Name: SYLVIA RAMIREZ Rep #: [id number] : 1955 F 59 From: Frantz Rojas MD PCP: Lorena Talbot MD Status: REG CLI Study: Breast Limited Unilateral Date of Exam: 01/01/15 Exam# [id number] Ordering Dr: Pat Buchanan STUDY: ULT RASOUND [...] at 15:39 EDT Tel , Service support [phone], CC: Pat Buchanan; Lorena Talbot MD Dredge Engineer: Signed 01-Jan-2015 Unilat Lt Diag Digital AND CAD Result: Comments: See Note; NOTES: [facility] Imaging Services [address] [place] [address] Breast Imaging Report MR#: [id number] Acct: [id number] Name: SYLVIA RAMIREZ Rep #: [id number] : 1955 F 59 From: Frantz Rojas MD PCP: Lorena Talbot MD Status: REG CLI Study: Unilat Lt Diag Digital AND CAD Date of Exam: 01/01/15 Exam# [id number] Ordering Dr: Pat Buchanan AMMOGRAPHY - UNILATERAL [...] t 15:34 EDT Tel , Service support [phone], CC: Pat Buchanan; Lorena Talbot MD Dredge Engineer: Signed 21-Feb-2014 Bilat Scrn Digital & CAD Result: Comments: See Note; NOTES: [facility] Imaging Services [address] [place] [address] Breast Imaging Report MR#: [id number] Acct: [id number] Name: SYLVIA RAMIREZ Rep #: [id number] : 1955 F 58 From: Tobin Sawant MD PCP: Lorena Talbot MD Status: REG CLI Exam# [id number] Ordering Dr: Lorena Talbot MD MAMMOGRAPHY - [...] MD 201 08/03/28 at 9:41 EDT Tel [phone], Service support [phone], CC: Lorena Talbot MD Dredge Engineer: Signed 21-Feb-2014 Dexa Bone Density Study (HP) Result: Comments: See Note; NOTES: [facility] Imaging Services [address] [place] [address] Bone Density Report MR#: [id number] Acct: [id number] Name: SYLVIA RAMIREZ Rep #: [id number] : 1955 F 58 From: Tobin Sawant MD PCP: Lorena Talbot MD Status: [facility] CLI Study: Dexa Bone Density Study (HP) Date of Exam: 02/21/14 Exam# [id number] Ordering Dr: Lorena Talbot MD STUDY: DUAL [...] Tobin Sawant MD at 12:35 EDT Tel [phone], Service support [phone], CC: Lorena Talbot MD Dredge Engineer: Signed 08-Feb-2014 PT Discharge Summary Result: Comments: See Note; NOTES: [facility] [address] [place] [address] Fax REHABILITATION SERVICES DISCHARGE SUMMARY MR#: [id number] Acct: [id number] Name: SYLVIA RAMIREZ Rep #: [id number] : 1955 58 From: Karrie Chris Referring [...] it is appropriate she be discharged from [facility] and continue independent home exercise progra m. The patient was encouraged to call if she does have any questions or concerns. Karrie Chris DPT T: KRISHAN JOB: [id number] <Electronically signed by Karrie Chris > 02/08/14 0705 CC: Signed 02-Jan-2014 Inital Evaluation - PT Result: Comments: See Note; NOTES: [facility] [address] [place] [address] Fax REHABILITATION SERVICES INITIAL EVALUATION MR#: [id number] Acct: [id number] Name: SYLVIA RAMIREZ Rep #: [id number] : 1955 58 From: Karrie Chris Referring Dr.: Haile Aguilera DO Status: REG R Insurance: [facility] Eval Date: DATE OF SERVICE: 01/01/2014 [...] On Wednesday she is leaving for the [facility] and will be gone for approximately 2 [...] pain. Karrie Chris DPT T: NTS JOB: [id number] <Electronically signed by Karrie Jhaveri Aries > [...] Situation Comments: single lives alone, annie olivares [phone] dtr Status: Active No Drug Use Status: Active Non Smoker/No Tobacco Use Status: Active Number of Adult (age 18 or over) Dependents Comments: 2 Status: Active Tobacco use: Former smoker. Status: Active Smoking Status Name Dates Details Former smoker Vital Signs Date Test Result Details 36-Npt-045576:39 Pulse 70 /min Comments: Pattern: Regular Respiration Rate 18 /min O2 SAT 97 % Comments: Room air BP Systolic 114 mm[Hg] Comments: Patient Position: Sitting BP Diastolic 70 mm[Hg] Comments: Patient Position: Sitting 76-Aza-406626:58 Temperature 97.6 f Comments: Method: Temporal Pulse [...] 0.00 cm Results Date Description Value Details 31-Izr-536597:35 Methymalonic Acid, Serum Comments: PATIENT NOT FASTINGPERFORMED BY: [email or web address] [id number] BY: [address] [id number] ([address]) Disclaimer: SPRCS (Normal) Comments: This test was developed and its performance characteristicsdetermined by [employer]. It has not been cleared or approvedby the Food and Drug Administration. Methylmalonic Acid, Serum 82 nmol/L (Normal) Range: 0-378 77-Mdh-496823:35 Vitamin B-12 Comments: PATIENT NOT FASTINGPERFORMED BY: [employer] [id number] BY: [employer] [id number] (cyanocobalamin) (04147) Vitamin B12 852 pg/mL (Normal) Range: 232-1245 56-Wxp-948451:35 HELICOBACTER PYLORI Comments: PATIENT NOT FASTINGPERFORMED BY: [address] [id number] BY: [facility] [id number] ANTIBODY (62118) H. pylori, IgG Abs 0.17 {Index_Value} (Normal) Range: 0.00-0.79 Comments: Negative <0.80 Equivocal 0.80 - 0.89 Positive >0.89 63-Lcy-067224:35 Creatine Kinase Total Comments: PATIENT NOT FASTINGPERFORMED BY: [employer] [id number] BY: [place] [address] [id number] (378[address]) Creatine Kinase,Total 425 U/L (Abnormal) Range: 24-173 60-Ytq-428275:35 C-Reactive Protein Comments: PATIENT NOT FASTINGPERFORMED BY: [email or web address] [id number] BY: [address] [id number] (93325) C-Reactive Protein, Quant 6.0 mg/L (Abnormal) Range: 0.0-4.9 30-Nov-20172:50 Basic Metabolic Profile (BMP) Comments: [facility] [address] [place], [address] GAP 10 (Normal) Range: 5-15 CO2 26.0 [...] A.D.A. criteria.Please note revised GLUCOSE reference range marxzguyh75/02/2018. :50 CBC W/Diff, Automated Comments: [facility] [address] [place], [place], [id number] SMEAR COMMENT SCANNED (Normal) Absolute Lymph 0.21 [...] K/mm3 (Abnormal) Range: 4.4-11.0 :50 Lipase Comments: [facility] [address] [place], [id number] LIPASE 171 U/L (Normal) Range: 73-393 30-Nov-20172:50 Liver Profile Comments: [address] [place], [id number] D BILI 0.27 mg/dL (Normal) Range: 0.00-0.30 T BILI 1.10 mg/dL (Abnormal) Range: 0.20-1.00 ALT 36 U/L (Normal) Range: 13-56 ALK P 46 U/L (Normal) Range: 45-117 AST 32 U/L (Normal) Range: 15-37 GLOB 3.9 g/dL (Normal) Range: 2.2-4.2 ALB 3.6 g/dL (Normal) Range: 3.2-5.0 T PROT 7.5 g/dL (Normal) Range: 6.4-8.2 17-Crh-069420:27 CBC-Complete Blood Cnt No Diff Comments: [address] [place], [place], [id number] MPV 10.2 fL (Normal) Range: 6.2-12.0 PLT [...] 4.2-5.4 WBC 4.0 K/mm3 (Abnormal) Range: 4.4-11.0 37-Jpw-683962:27 CPK Total, Creatine Kinase Comments: [address] [place], [address] CPK TOTAL 577 U/L (Abnormal) Range: 26-192 59-Roy-946937:27 Liver Profile Comments: [facility] [address] [place], [place], [address] D BILI 0.16 mg/dL (Normal) Range: 0.00-0.30 T BILI 0.90 mg/dL (Normal) Range: 0.20-1.00 ALT 36 U/L (Normal) Range: 13-56 ALK P 43 U/L (Abnormal) Range: 45-117 AST 33 U/L (Normal) Range: 15-37 GLOB 3.7 g/dL (Normal) Range: 2.2-4.2 ALB 3.8 g/dL (Normal) Range: 3.2-5.0 T PROT 7.5 g/dL (Normal) Range: 6.4-8.2 01-Oec-473600:27 Serum Creatinine AND GFR Comments: [facility] [address] [place], [place], [phone] EST GFR - AA 163 mL/min (Normal) Comments: GFR Calc EST GFR 135 mL/min (Normal) Comments: Non- GFR Calc CREAT,SERUM 0.49 mg/dL (Abnormal) Range: 0.55-1.02 Comments: The validity of the calculated GFR AND GFRAA in patients over70 years has not been determined. Clinical correlation isessential. 33-Naz-346736:23 CBC W/Diff, Automated Comments: [facility] [address] [place], [place], [phone] BASO STIP RARE (Normal) PLT EST ADEQUATE [...] :34 CBC-Complete Blood Cnt No Diff Comments: [facility] [address] [place], [place], [phone]) MPV 10.1 fL (Normal) Range: 6.2-12.0 PLT [...] 4.4-11.0 :34 CPK Total, Creatine Kinase Comments: [facility] [address] [place], [place], [address] CPK TOTAL 909 U/L (Abnormal) Range: 26-192 :34 Liver Profile Comments: [facility] [address] [place], [address] D BILI 0.16 mg/dL (Normal) Range: 0.00-0.30 T BILI 0.70 mg/dL (Normal) Range: 0.20-1.00 ALT 49 U/L (Normal) Range: 13-56 ALK P 52 U/L (Normal) Range: 45-117 AST 44 U/L (Abnormal) Range: 15-37 GLOB 3.8 g/dL (Normal) Range: 2.2-4.2 ALB 3.5 g/dL (Normal) Range: 3.2-5.0 T PROT 7.3 g/dL (Normal) Range: 6.4-8.2 :34 Serum Creatinine AND GFR Comments: [facility] Rprexhwfdh[address] [place], [place], [id number] EST GFR - AA 192 mL/min (Normal) [...] for address and phone number Hep B [place] AB Reactive (Normal) Comments: Non Reactive: Inconsistent [...] CORE,TOT Negative (Normal) Comments: Performed at: - [facility] [id number] Director: Arsh Cuellar PhD, Phone: [phone] 24-Lhq-18719:23 Hepatitis C Antibodies Comments: Is Patient Fasting? [facility] (refer to report for specific site)refer to report for address and phone number HEP C AB 0.1 {s/co_ratio} (Normal) Range: 0.0-0.9 Comments: Negative: < 0.8 Indeterminate: 0.8 - 0.9 Positive: > 0.9 The CDC recommends that a positive HCV antibody result be followed up with a HCV Nucleic Acid Amplification test (393973). :23 Immunoglobulins G/A/M Comments: Is Patient Fasting? [facility] (refer to report for specific site)refer to report for address and phone number IMMUNOGL M 202 mg/dL (Normal) Range: 26-217 IMMUNO A 165 mg/dL (Normal) Range: 87-352 IMMUNO G 1092 mg/dL (Normal) Range: 700-1600 29-Hqg-754950:18 CBC-Complete Blood Cnt No Diff Comments: [facility] [address] [place], [place], [id number] MPV 11.1 fL (Normal) Range: 6.2-12.0 PLT [...] 4.2-5.4 WBC 4.9 K/mm3 (Normal) Range: 4.4-11.0 80-Gfj-831964:18 Liver Profile Comments: [facility] [address] [place], [place], [address] D BILI 0.13 mg/dL (Normal) Range: 0.00-0.30 T BILI 0.60 mg/dL (Normal) Range: 0.20-1.00 ALT 56 U/L (Normal) Range: 13-56 Comments: Please note revised ALT reference range lkkmsufpe57/28/2018. ALK P 49 U/L (Normal) Range: 45-117 AST 57 U/L (Abnormal) Range: 15-37 GLOB 3.6 g/dL (Normal) Range: 2.2-4.2 ALB 3.6 g/dL (Normal) Range: 3.2-5.0 T PROT 7.2 g/dL (Normal) Range: 6.4-8.2 06-Xxb-408167:18 Serum Creatinine AND GFR Comments: [facility] Qamxptoahf4495 [facility] [address]. [place], [place], [id number] EST GFR - AA 164 mL/min (Normal) Comments: GFR Calc EST GFR 135 mL/min (Normal) Comments: Non- GFR Calc CREAT,SERUM 0.49 mg/dL (Abnormal) Range: 0.55-1.02 Comments: The validity of the calculated GFR AND GFRAA in patients over70 years has not been determined. Clinical correlation isessential. 81-Pzl-03678:40 CBC-Complete Blood Cnt No Diff Comments: [facility] [address]vwr[address] [place], [place], [address] MPV 11.0 fL (Normal) Range: 6.2-12.0 PLT [...] 4.4-11.0 :40 CPK Total, Creatine Kinase Comments: [facility] [address]co[address] [place], [id number] CPK TOTAL 1418 U/L (Abnormal) Range: 26-192 62-Usy-27268:40 Liver Profile Comments: [place] [address] [place], [address] D BILI 0.12 mg/dL (Normal) Range: 0.00-0.30 T BILI 0.60 mg/dL (Normal) Range: 0.20-1.00 ALT 59 U/L (Abnormal) Range: 13-56 Comments: Please note revised ALT reference range faohparxi47/28/2018. ALK P 48 U/L (Normal) Range: 45-117 AST 60 U/L (Abnormal) Range: 15-37 GLOB 3.6 g/dL (Normal) Range: 2.2-4.2 ALB 3.4 g/dL (Normal) Range: 3.2-5.0 T PROT 7.0 g/dL (Normal) Range: 6.4-8.2 :40 Serum Creatinine AND GFR Comments: [facility] [address] [place], [address] EST GFR - AA 201 mL/min (Normal) Comments: GFR Calc EST GFR 166 mL/min (Normal) Comments: Non- GFR Calc CREAT,SERUM 0.41 mg/dL (Abnormal) Range: 0.55-1.02 Comments: The validity of the calculated GFR AND GFRAA in patients over70 years has not been determined. Clinical correlation isessential. 25-Gug-570586:31 CBC-Complete Blood Cnt No Diff Comments: [facility] [address] [place], [address] MPV 10.5 fL (Normal) Range: 6.2-12.0 [...] 4.2-5.4 WBC 5.0 K/mm3 (Normal) Range: 4.4-11.0 46-Ovw-779510:31 CPK Total, Creatine Kinase Comments: [facility] Spqkcwnykc9702 [facility] [address]. [place], [place], [address] CPK TOTAL 924 U/L (Abnormal) Range: 26-192 75-Mhu-190832:31 Liver Profile Comments: [facility] [address] [place], [place], [phone] D BILI 0.12 mg/dL (Normal) Range: 0.00-0.30 T BILI 0.70 mg/dL (Normal) Range: 0.20-1.00 ALT 49 U/L (Normal) Range: 12-78 ALK P 45 U/L (Normal) Range: 45-117 AST 49 U/L (Abnormal) Range: 15-37 GLOB 4.0 g/dL (Normal) Range: 2.2-4.2 ALB 3.6 g/dL (Normal) Range: 3.4-5.0 Comments: Please note revised Albumin AND Globulin reference rangeeffective 2017. T PROT 7.6 g/dL (Normal) Range: 6.4-8.2 08-Qul-849720:31 Serum Creatinine AND GFR Comments: [facility] [address] [place], [place], [address] EST GFR - AA 142 mL/min (Normal) Comments: GFR Calc EST GFR 117 mL/min (Normal) Comments: Non- GFR Calc CREAT,SERUM 0.56 mg/dL (Normal) Range: 0.55-1.02 Comments: The validity of the calculated GFR AND GFRAA in patients over70 years has not been determined. Clinical correlation isessential. :18 CBC-Complete Blood Cnt No Diff Comments: [facility] [address] [place], [id number] MPV 10.6 fL (Normal) Range: 6.2-12.0 PLT [...] 4.4-11.0 :18 CPK Total, Creatine Kinase Comments: [facility] [address] [place], [place], [address] CPK TOTAL 1718 U/L (Abnormal) Range: 26-192 :18 Liver Profile Comments: [facility] [address] [place], [place], [address] D BILI 0.14 mg/dL (Normal) Range: 0.00-0.30 T BILI 0.60 mg/dL (Normal) Range: 0.20-1.00 ALT 58 U/L (Normal) Range: 12-78 ALK P 48 U/L (Normal) Range: 45-117 AST 60 U/L (Abnormal) Range: 15-37 GLOB 3.7 g/dL (Normal) Range: 2.2-4.2 ALB 3.5 g/dL (Normal) Range: 3.4-5.0 Comments: Please note revised Albumin AND Globulin reference rangeeffective 2017. T PROT 7.2 g/dL (Normal) Range: 6.4-8.2 74-Qrt-85319:18 Serum Creatinine AND GFR Comments: [facility] [address] [place], [place], [address] EST GFR - AA 175 mL/min (Normal) Comments: GFR Calc EST GFR 145 mL/min (Normal) Comments: Non- GFR Calc CREAT,SERUM 0.46 mg/dL (Abnormal) Range: 0.55-1.02 Comments: The validity of the calculated GFR AND GFRAA in patients over70 years has not been determined. Clinical correlation isessential. 51-Thd-345841:43 Basic Metabolic Profile (BMP) Comments: [facility] [address] [place], [address] GAP 9 (Normal) Range: 5-15 [...] 7-18 GLU 97 mg/dL (Normal) Range: 70-110 57-Rjl-422062:43 CBC W/Diff, Automated Comments: [facility] [address] [place], [address] OVALOCYTE RARE (Normal) MACROCYTE 1+ [...] 4.2-5.4 WBC 5.5 K/mm3 (Normal) Range: 4.4-11.0 94-Raj-057165:43 CPK Total, Creatine Kinase Comments: [facility] [address] [place], [place], [address] CPK TOTAL 1846 U/L (Abnormal) Range: 26-192 69-Akb-267412:43 Liver Profile Comments: [facility] Lfcjpydjlc9376 [facility]. [place], [place], [address] D BILI 0.17 mg/dL (Normal) Range: 0.00-0.30 T BILI 0.70 mg/dL (Normal) Range: 0.20-1.00 ALT 60 U/L (Normal) Range: 12-78 ALK P 55 U/L (Normal) Range: 45-117 AST 69 U/L (Abnormal) Range: 15-37 GLOB 3.4 g/dL (Normal) Range: 2.3-3.5 ALB 3.7 g/dL (Normal) Range: 3.4-5.0 T PROT 7.1 g/dL (Normal) Range: 6.4-8.2 02-Krm-018331:26 Basic Metabolic Profile (BMP) Comments: [facility] [address] [place], [place], [address] GAP 6 (Normal) Range: 5-15 CO2 27.0 [...] 7-18 GLU 96 mg/dL (Normal) Range: 70-110 43-Alf-220624:26 CBC W/Diff, Automated Comments: [facility] [address] [place], [place], [address] Absolute Lymph 0.33 {X10_3/ul} (Abnormal) Range: 0.83-4.51 [...] 4.2-5.4 WBC 5.2 K/mm3 (Normal) Range: 4.4-11.0 64-Weg-550629:26 CPK Total, Creatine Kinase Comments: [facility] [address] [place] [address], [address] CPK TOTAL 1661 U/L (Abnormal) Range: 26-192 21-Npq-965500:26 Liver Profile Comments: [address], [address] D BILI 0.12 mg/dL (Normal) Range: 0.00-0.30 T BILI 0.60 mg/dL (Normal) Range: 0.20-1.00 ALT 54 U/L (Normal) Range: 12-78 ALK P 50 U/L (Normal) Range: 45-117 AST 58 U/L (Abnormal) Range: 15-37 GLOB 3.9 g/dL (Abnormal) Range: 2.3-3.5 ALB 3.6 g/dL (Normal) Range: 3.4-5.0 T PROT 7.5 g/dL (Normal) Range: 6.4-8.2 4-Ajt-637820:44 CBC W/Diff, Automated Comments: ADD TO 0503:V851PBP TO 0503:E456PdahjraKindred Hospital Lima Cxlszbxful3902 [facility] [place], [address] SMEAR COMMENT COMMENT (Normal) Comments: [...] 4.2-5.4 WBC 5.4 K/mm3 (Normal) Range: 4.4-11.0 7-Bqc-053125:42 CPK Total, Creatine Comments: ADD CPK/BMP/HIKITGN1-8-RFszucggFirelands [facility] Center X[address]stkgqwa56[address] [place], [address] Kinase CPK TOTAL 1438 U/L (Abnormal) Range: 26-192 3-Fja-837385:42 CRP Comments: ADD CPK/BMP/KSPZQYL2-4-IOquxwcyFirelands Regional Medical Center [address]cl[address]heqr5[address] [place], [address] C-REACTIVE PROT 4.67 mg/L (Abnormal) Range: 0.0-3.0 Comments: C-Reactive Protein (CRP) provides useful information for thediagnosis, therapy and monitoring of inflammatory processesand associated diseases. For the evaluation of Relative Riskfor Cardiovascular Dise ase, a High Sensitivity CRP (HSCRP)should be ordered. 5-Naf-526057:42 Erythrocyte Sed Rate Comments: [facility] [address] [place], [address] SED RATE 39 mm/h (Abnormal) Range: 0-30 7-Hbj-978736:42 Hepatitis ABC Profile Comments: [facility] (refer to report for specific site)refer to report for address and phone number COMMENT Comment (Normal) Comments: Non reactive HCV antibody screen is consistent with no HCVinfection, unless recent infection is suspected or otherevidence exists to indicate HCV infection.Performed at: [facility] [address] [id number] Director: Arsh Cuellar PhD, Phone: [phone] HCV Ab <0.1 {s/co_ratio} (Normal) Range: 0.0-0.9 Hep B Michael AB Reactive (Normal) Comments: Non Reactive: Inconsistent with immunity, less than 10 mIU/mL Reactive: Consistent with immunity, greater than 9.9 mIU/mL HEP B CORE,TOT Negative (Normal) HB CORE IJ48570 Negative (Normal) HB SURF AG Negative (Normal) HEP A AB,T.6726 Positive (Abnormal) HEP A IgM 6734 Negative (Normal) 14-Rde-101815:35 Basic Metabolic Profile (BMP) Comments: [facility] [address] [place], [address] GAP 7 (Normal) Range: 5-15 [...] 7-18 GLU 105 mg/dL (Normal) Range: 70-110 82-Orh-768796:35 CBC W/Diff, Automated Comments: [facility] [address] [place], [place], [address] Absolute Lymph 0.28 {X10_3/ul} (Abnormal) Range: 0.83-4.51 [...] 4.2-5.4 WBC 5.3 K/mm3 (Normal) Range: 4.4-11.0 00-Mdg-918920:35 CPK Total, Creatine Kinase Comments: [facility] [address]fwtvmztkc[address] [place], [place], [address] CPK TOTAL 2479 U/L (Abnormal) Range: 26-192 56-Ztw-799886:35 Liver Profile Comments: [facility] [address] [place], [place], [address] D BILI 0.17 mg/dL (Normal) Range: 0.00-0.30 T BILI 0.90 mg/dL (Normal) Range: 0.20-1.00 ALT 105 U/L (Abnormal) Range: 12-78 ALK P 52 U/L (Normal) Range: 45-117 AST 102 U/L (Abnormal) Range: 15-37 GLOB 3.6 g/dL (Abnormal) Range: 2.3-3.5 ALB 3.5 g/dL (Normal) Range: 3.4-5.0 T PROT 7.1 g/dL (Normal) Range: 6.4-8.2 3-Mgk-414006:33 Basic Metabolic Profile (BMP) Comments: [facility] [address] [place], [place], [address] GAP 9 (Normal) Range: 5-15 CO2 27.0 [...] 7-18 GLU 94 mg/dL (Normal) Range: 70-110 3-Zta-951691:33 CBC W/Diff, Automated Comments: [facility] [address] [place], [place], [address] ANISO 2+ (Normal) Absolute Lymph 0.32 {X10_3/ul} [...] 4.2-5.4 WBC 4.8 K/mm3 (Normal) Range: 4.4-11.0 3-Zvo-920651:33 CPK Total, Creatine Kinase Comments: [facility] [address]mpx[address] [place], [address] CPK TOTAL 2987 U/L (Abnormal) Range: 26-192 8-Gnd-201887:33 Liver Profile Comments: [facility] Oxrxeesckc[address] [place], [place], [address] D BILI 0.09 mg/dL (Normal) Range: 0.00-0.30 T BILI 0.60 mg/dL (Normal) Range: 0.20-1.00 ALT 120 U/L (Abnormal) Range: 12-78 ALK P 62 U/L (Normal) Range: 45-117 AST 115 U/L (Abnormal) Range: 15-37 GLOB 3.6 g/dL (Abnormal) Range: 2.3-3.5 ALB 3.5 g/dL (Normal) Range: 3.4-5.0 T PROT 7.1 g/dL (Normal) Range: 6.4-8.2 07-Dsu-430541:54 Basic Metabolic Profile (BMP) Comments: [facility] [address] [place], [place], [address] GAP 11 (Normal) Range: 5-15 CO2 25.0 [...] 7-18 GLU 102 mg/dL (Normal) Range: 70-110 41-Skd-435224:54 CBC W/Diff, Automated Comments: [facility] [address] [place], [place], [address] POIK RARE (Normal) PLT EST ADEQUATE (Normal) [...] 4.2-5.4 WBC 5.1 K/mm3 (Normal) Range: 4.4-11.0 23-Cwh-971052:54 CPK Total, Creatine Kinase Comments: [facility] [address] [place], [place], [address] CPK TOTAL 1840 U/L (Abnormal) Range: 26-192 77-Cja-510958:54 Liver Profile Comments: [facility] [address] [place], [place], [address] D BILI 0.13 mg/dL (Normal) Range: 0.00-0.30 T BILI 0.50 mg/dL (Normal) Range: 0.20-1.00 ALT 70 U/L (Normal) Range: 12-78 ALK P 56 U/L (Normal) Range: 45-117 AST 76 U/L (Abnormal) Range: 15-37 GLOB 3.7 g/dL (Abnormal) Range: 2.3-3.5 ALB 3.5 g/dL (Normal) Range: 3.4-5.0 T PROT 7.2 g/dL (Normal) Range: 6.4-8.2 :55 TEMPORAL ARTERY BX See Note (Normal) Comments: [facility] [address] [place], [place], [address] Comments: Patient: SYLVIA RAMIREZ : 1955 (60/F) Acct Num: [id number] Phys: Lyndon Saavedra MD Unit Num: [id number] Loc: [facility] Specimen: [id number] Received: 01/20/161813 Spec Type : TEMPORAL TISSUES TISSUES: COMMENT Elastic stain with matched control is used in the evaluation of the specimen. GROSS DESCRIPTION Received is one container labeled with the pat ient's name and designated left temporal artery. The specimen consists of a single elongated fragment of wiley tissue measuring 0.5 x <0.1 x <0.1 cm. The specimen is totally submitted in [facility] ette for post fixation serial sectioning. / AM:rickie 01/21/16 TC:5 CPT:27382, 20476 HEADER OPERATION: Left temporal artery biopsy PRE-OP [...] W/Diff, Automated Comments: Order Date: 01/10/16[facility] Date: [facility]16[facility] Sqlulyqcda93[address] [place], [address] SMEAR COMMENT SCANNED (Normal) Absolute [...] 4.2-5.4 WBC 6.3 K/mm3 (Normal) Range: 4.4-11.0 49-Pyl-99146:05 CRP Comments: Order Date: 01/10/16Order Date: [facility]/10/16[facility] [address]asxluyhc87[address] [place], [address] C-REACTIVE PROT 192.00 mg/L (Abnormal) Range: 0.0-3.0 Comments: C-Reactive Protein (CRP) provides useful information for thediagnosis, therapy and monitoring of inflammatory processesand associated diseases. For the evaluation of Relative Riskfor Cardiovascular Dise ase, a High Sensitivity CRP (HSCRP)should be ordered. :05 Erythrocyte Sed Rate Comments: Order Date: 01/10/16Order Date: [facility]/10/16[facility] [address]sfxwllpw[address] [place], [address] SED RATE 79 mm/h (Abnormal) Range: 0-30 69-Rgl-368898:46 Basic Metabolic Profile (BMP) Comments: [facility] Ujsbwempax9[address] [place], [address] GAP 3 (Abnormal) Range: 5-15 CO2 27.0 [...] A.D.A. criteria. :46 CBC W/Diff, Automated Comments: [facility] [address]jgghp4[address] [place], [address] ANISO 1+ (Normal) PLT EST ADEQUATE (Normal) [...] (Abnormal) WBC 5.1 K/mm3 (Normal) Range: 4.4-11.0 95-Kdc-490671: NEUROMA - See Note (Normal) Comments: [facility] [address] [place], [address] FOUNTAIN'S/TRAUMATIC Comments: Patient: SYLVIA RAMIREZ : 1955 (60/F) Acct Num: [id number] Phys: Stacie BEARDENPeridot Unit Num: [id number] Loc: [facility] Specimen: [id number] Received: 04/15/15 - 0755 Spec Type: N EUROMA TISSUES TISSUES: GROSS DESCRIPTION Received is one container labeled with the patient name and designated right third intermetatarsal space neuroma. The specimen consists of multiple pieces of wiley-yellow soft tissue measuring in aggregate 2.5 x 2 x 0.3 cm. The specimenis totally submitted in one cassette. 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 MICROSCOPIC DIAGNOSIS Soft tissue of right hand, third intermetatarsal space, excision: Consistent with neuroma. AM: 04/16/[address] [facility] 04/16/15 <signature on file> 16-Jrh-314416: BREAST BIOPSY (CHOOSE See Note (Normal) Comments: [facility] [address]bvuv[address] [place], [address] 10 SITE) Comments: Patient: SYLVIA RAMIREZ : 1955 (59/F) Acct Num: [id number] Phys: Preeti HERRING,Jaxon Unit Num: [id number] Loc: [facility] Specimen: [id number] Received: 02/06/151614 Spec Type: BREAST BX TISSUES [...] one cassette. / AM: 02/07/15 TC:5 CPT: 71637 HEADER OPERATION: U/S guided core biopsy left [...] CHOL 213 mg/dL (Abnormal) Comments: <200 mg/dL Ijgodjtjj444-838 mg/dL Borderline>240 mg/dL High Risk 33-Dbv-488735:03 PARATHORMONE (48603) Comments: PATIENT NOT FASTINGPERFORMED BY: [employer] [place] [id number] Information: [id number],2ND ORDER NO DRAW F EE PTH, Intact 23 pg/mL (Normal) Range: 15-65 49-Tvn-561599:02 TSH (THYROID STIMULATING Comments: PATIENT NOT FASTINGPERFORMED BY: AVOB [facility] Rjvalh3068 [facility] [id number] HORMONE) (11359) TSH 0.733 {uIU/mL} (Normal) Range: 0.450-4.500 :02 CALCIFEDIOL (25363) Comments: PATIENT NOT FASTINGPERFORMED BY: AVOB [facility] Hmecpz2145 Torres [facility] [place] [id number] Vitamin D, 25-Hydroxy 28.9 ng/mL (Abnormal) Range: 30.0-100.0 Comments: Vitamin D deficiency has been defined by the [place] of[place]icine and an Endocrine Society practice guideline as alevel of serum 25-OH vitamin D less than 20 ng/mL (1,2).The Endocrine Society went on to further define vitamin Dinsufficiency as a level between 21 and 29 ng/mL (2).1. IOM ([place] of Medicine). 2010. Dietary reference intakes for calcium and D. [place]: The National Academies Press.2. Holick MF, Saida OCONNOR, Esdras JIMENEZ, et al. Evaluation, treatment, and prevention of vitamin D deficiency: an Endocrine Society clinical practice guideline. JCEM. 2010; 96(7):1911-30. 63-Jfb-162985:02 METABOLIC PANEL, Comments: PATIENT NOT FASTINGPERFORMED BY: [facility] Cravyb2671 [facility] [id number] Information: [id number] COMPREHENSIVE (58819) ALT (SGPT) 77 [iU]/L (Abnormal) Range: 0-32 [...] Glucose, Serum 110 mg/dL (Abnormal) Range: 65-99 18-Lkh-335809:28 CBCD Comments: NO CHARGE REDRAW ANC 7.5 [...] 4.2-5.4 WBC 8.6 K/mm3 (Normal) Range: 4.4-11.0 04-Ord-518484:29 SED Comments: NO CHARGE REDRAW tSEDRATE 20 mm/h (Normal) Range: 0-30 05-Hqr-692900:42 Urinalysis, Office (81511) UA - LEUKOCYTE ESTERASE Negative (Normal) UA - NITRITE Negative (Normal) URINE UROBILINGN MARIE TIMED Normal mg/dL (Normal) UA - PROTEIN Negative mg/dL (Normal) UA - PH 7 (Normal) UA - BLOOD Negative (Normal) UA - SPECIFIC GRAVITY 1.020 (Normal) UA - KETONES Small mg/dL (Normal) UA - BILIRUBIN Negative (Normal) UA - GLUCOSE Negative (Normal) 0-Aue-055565:38 Systemic Lupus Profile Comments: PATIENT NOT FASTINGPERFORMED BY: [facility]Fnfwbb2326 [facility] [id number] Information: [id number] (56057) Anti-DNA (DS) Ab Qn 3 {IU/mL} (Normal) Range: 0-9 Comments: Negative <5 Equivocal 5 - 9 Positive >9 Sjogren's Anti-SS-B 0.2 {AI} (Normal) Range: 0.0-0.9 Sjogren's Anti-SS-A <0.2 {AI} (Normal) Range: 0.0-0.9 Antichromatin Antibodies <0.2 {AI} (Normal) Range: 0.0-0.9 RA Latex Turbid. 8.4 {IU/mL} (Normal) Range: 0.0-13.9 Iraheta Antibodies <0.2 {AI} (Normal) Range: 0.0-0.9 CLERK TELEGRAPH SERVICE Antibodies <0.2 {AI} (Normal) Range: 0.0-0.9 8-Sdg-315527:05 HAND MIN 3 VIEWS Radiology Report See [...] Signed:Tobin Sawant M.D.November 25 at 2:42:01 PM [id number] Signed GP/GP If you are the referring physician and would like to consult with theradiologist who provided this interpretation, please contact Amber calixto M.D. at [phone]. If this radiologist is unavailable, youwill be directed to another radiologist to assist. If you are a patient with a question regarding this report, pleasecontactyour referr ing physician directly. Professional Interpretation Provided By: [employer], Phone , These documents contain legally protected [...] 11/25/12 1454 by ITS IMPORTSign by Tobin aSwant MD on 11/25/124 Sign by: Tobin Sawant MD 8-Wdb-727064:04 HAND MIN 3 VIEWS Radiology Report See [...] swelling. Signed:Tobin Sawant M.D.November at 2:42:30 PM [id number] Signed GP/GP If you are the referring physician and would like to consult with theradiologist who provided this interpretation, please contact Tobin Sawant M.D. at [phone]. If this radiologist is unavailable, youwill be directed to another radiologist to assist. If you are a patient with a question regarding this report, pleasecontactyour daniel fry physician directly. Professional Interpretation Provided By: [employer], Phone , These documents contain legally protected [...] 11/25/12 1454 Sign by: Tobin Sawant MD 8-Kng-144046:04 WRIST MIN 3 VIEWS Radiology See Note [...] Sawant M.D.November 25, 2012 at 2:43:33 PM [id number] Signed GP/GP If you are the referring physician and would like to co nsult with theradiologist who provided this interpretation, please contact Jaz Falk at [phone]. If this radiologist is unavailable, youwill be directed to another radiologist to [facility] . If you are a patient with a question regarding this report, pleasecontactyour referring physician directly. Professional Interpretation Provided By: [employer], Phone ,Fax These documents contain legally protected [...] 11/25/12 1456 Sign by: Tobin Sawant MD 5-Qkr-994622:04 WRIST MIN 3 VIEWS Radiology See Note [...] Sawant M.D.November 25, 2012 at 2:42:31 PM [id number] Signed GP/GP If you are the referring physician and would like to con sult with theradiologist who provided this interpretation, please contact Jaz Falk at [phone]. If this radiologist is unavailable, youwill be directed to another radiologist to ed slaughter. If you are a patient with a question regarding this report, pleasecontactyour referring physician directly. Professional Interpretation Provided By: [facility], Phone , These documents contain legally protected [...] destructionofthese documents. Dictated on 11/25/12 1442 by Ru Sawant MDranscribed on 11/25/12 1456 by ITS IMPORTSign by Tobin Sawant MD on 11/25/12 1457 Sign by: Tobin Sawant MD 3-Toc-020046:50 CCP ANTIBODY ([id number]) Comments: PATIENT NOT FASTINGPERFORMED BY: CB [facility] [id number] [facility] [id number] BY: BN [facility] [address] [id number] CCP Antibodies IgG/IgA 21 {units} (Abnormal) Range: 0-19 Comments: Negative <20 Weak positive 20 - 39 Moderate positive 40 - 59 Strong positive >59 [id number]:50 SED RATE ERYTHROCYTE Comments: PATIENT NOT FASTINGPERFORMED BY: [facility] Isdauu8440 [facility] [place] [id number] BY: [address] [id number] ([id number]) Sedimentation Rate-Westergren 2 mm/h (Normal) Range: 0-40 9-Sfn-444460:50 C-REACTIVE PROTEIN ([id number]) Comments: PATIENT NOT FASTINGPERFORMED BY: [facility] [id number] [facility] [id number] BY: [address] [id number] C-Reactive Protein, Quant 1.6 mg/L (Normal) Range: 0.0-4.9 1-Tvq-734936:50 TSH ([id number]) Comments: PATIENT NOT FASTINGPERFORMED BY: [facility] Ekahsw0149 [facility] [id number] BY: [address] [id number] TSH 1.410 {uIU/mL} (Normal) Range: 0.450-4.500 2-Sjy-990016:50 RHEUMATOID FACTOR-QUANT Comments: PATIENT NOT FASTINGPERFORMED BY: [facility]6[address] [facility] [id number] BY: [address] [id number] ([id number]) RA Latex Turbid. 5.4 {IU/mL} (Normal) Range: 0.0-13.9 4-Pkk-816380:50 PATRICK (ANTINUCLEAR ANTIBODY) Comments: PATIENT NOT FASTINGPERFORMED BY: [facility] Knodav8048 [facility] [id number] BY: [address] [id number] ([id number]) PATRICK Direct Positive (Abnormal) 5-Pcu-373051:50 CBC WITH MANUAL DIFF Comments: PATIENT NOT FASTINGPERFORMED BY: [facility] Zhxsrx8476 [facility] [id number] BY: BN [facility] [id number] Inf ormation: [id number] ([id number]) Immature Grans (Abs) 0.0 {x10E3/uL} (Normal) Range: [...] 3.77-5.28 WBC 4.7 {x10E3/uL} (Normal) Range: 4.0-10.5 4-Etq-420101:50 METABOLIC PANEL, Comments: PATIENT NOT FASTINGPERFORMED BY: [facility]Sdgfds1327 [facility] [id number] BY: [facility] [id number] [facility] (13343) ALT (SGPT) 22 [iU]/L (Normal) Range: 0-32 [...] Glucose, Serum 93 mg/dL (Normal) Range: 65-99 67-Zwi-41742:49 LIPID,HEALTHPNT VLDL 14 mg/dL (Normal) Range: 5-40 [...] PANEL, COMPREHENSIVE Comments: PATIENT WAS FASTINGPERFORMED BY: [facility] Cfnxiq7769 [facility] [id number] (03467) ALT (SGPT) 20 [iU]/L (Normal) Range: 0-40 [...] MANUAL DIFF Comments: PATIENT WAS FASTINGPERFORMED BY: [facility] Mpaokn7628 [facility] [id number] Information: [id number] (49726) Baso (Absolute) 0.0 {x10E3/uL} (Normal) Range: 0.0-0.2 [...] {x10E3/uL} (Abnormal) Range: 4.0-10.5 :18 LIPID PANEL (47400) Comments: PATIENT WAS FASTINGPERFORMED BY: [facility]Co[facility]Cnufcj2068 [facility] [id number] LDL Cholesterol Calc 128 mg/dL (Abnormal) Range: [...] Report See Note (Normal) Comments: Exam Number: [id number] UNILATERAL LEFT RIBS Several views of the [...] Report See Note (Normal) Comments: Exam Number: [id number] DORSAL SPINE AP and lateral views were [...] unspecified laterality Planned Observations METABOLIC PANEL, COMPREHENSIVE (53870)Indication: Hyperlipidemia, mild On: :49 Request LIPOPROTEIN, BLD, BY NMR (62410)Indication: Hyperlipidemia, mild On: :49 Request HEPATIC FUNCTION PANEL (43822)Indication: Hyperlipidemia, mild On: :28 Request LIPOPROTEIN, BLD, BY NMR (78020)Indication: Hyperlipidemia, mild On: :28 Request CBC, Platelets & Auto Diff (85496)Indication: Headache, occipital On: :26 Request Comments: all labs stat C-Reactive Protein (23260)Indication: Headache, occipital On: : Request Sed Rate Erythrocyte (17270)Indication: Headache, occipital On: : Request Sed Rate Erythrocyte (28020)Indication: Headache, occipital On: :09 Request LIPID PANEL (33617)Indication: Osteoarthrosis, not specified whether generalized/localized, lower leg On: 8-Hma-643773:11 Request Parathyroid Hormone-related Peptide (PTH-rP) (79717)Indication: Abnormal blood chemistry On: 72-Npi-215596:02 Request METABOLIC PANEL, COMPREHENSIVE (82907)Indication: Swelling On: :15 Request Comments: Add to standing order to be done today CPK TOTAL & ISOENZYMES (56654)Indication: Elevated CPK On: 38-Ckh-110514:14 Request Comments: repeat today add to standing labs C-Reactive Protein (15197)Indication: Elevated CPK On: 37-Hws-094843:14 Request Comments: include with standing labs today TSH (29651)Indication: Swelling On: 40-Pcb-110233:12 Request Comments: Add to current standing order for today only Print this for pt MICROALBUMIN URINE QUANT (65617)Indication: Swelling On: 19-Tvh-617734:43 Request MICROALBUMIN: CREATININE RATIO (10203) AND (03523)Indication: Swelling On: :43 Request EXTRCTBL NUCLR ANTGEN EA (64317) test code 686164Ueryslavol: Abnormal blood chemistry On: Request ANTI-Sm (ANTI [place]HE[place] ANTIBODY) (70232) test code 047869Preelxvgaw: Abnormal blood chemistry On: Request ANTI-CLERK TELEGRAPH SERVICE (ANTI RIBONUCLEAR PROTEIN ANTIBODY) (08051) test code 691842Ukcleviagh: Abnormal blood chemistry On: Request DNA ANTIBODY-NATV/DBL ST (30071) test code 175987Mfafoaspfi: Abnormal blood chemistry On: Request URINALYSIS (17208)Indication: Malignant neoplasm of breast (female) On: :27 Request CBC (Auto) (21300)Indication: Malignant neoplasm of breast (female) On: :22 Request Metabolic Panel, Comprehensive (34624)Indication: Malignant neoplasm of breast (female) On: :22 Request Planned Procedures INJECTION, PROLIA (J0897)By: On: 24-Feb-2018 Intent Visit, Nurse Comments: [id number] syringer arm, SCMLONG Bone Density StudyBy: Dahiana On: 01-Feb-2018 Lorena Patel MD, MD, Dana M Comments: due after 03-10-18 INJECTION, PROLIA (J0897)By: On: 14-Jul-2017 Amanda Talbot MD, Lorena Talbot MD, Comments: lot: [id number]: 09/2019site/route: R arm/SQamt: prefilled syringeVIS signed when applicableBLU Waters INJECTION, PROLIA (J0897)By: On: 17-Dec-2016 Amanda Talbot MD, Lorena Talbot MD, Comments: Lot:[id number]:02/11Dose:60mlRoute:sub q Site:r armGiven By:JKMVIS signed Lorena Lewis Radiology - ChestBy: Dahiana On: 02-Jul-2016 Lorena Patel MD, MD, Dana M Comments: recheck approx. 4 weeks check before 08-03-16 follow up Radiology - Chest- PA and On: 02-Jul-2016 Intent LatBy: Lorena Talbot MD, MD, Dana M Inhaler Demo ([id number])By: Dahiana On: 02-Jul-2016 Lorena Patel MD, MD, Dana M Aerosol Treatment (20969)By: On: 02-Jul-2016 Lorena Holbrook MD, MD, Dana M INJECTION, PROLIA (J0897)By: On: 12-Jun-2016 Lorena Holbrook MD, MD, Comments: lot: [id number]: 08/12site/route: R arm/SQamt: prefilled syringe 60mgVIS signed when applicableBLU Waters LE Arterial Exam - LowerBy: On: 02-Apr-2016 Lorena Holbrook MD, MD, Dana M Aerosol Treatment (19101)By: On: 04-Mar-2015 Pat Bright CNP RIGHT MAMMOGRAM (21318)By: On: 04-Mar-2015 Pat Bright CNP Breast Ultrasound - LeftBy: On: 01-Jan-2015 Pat Bright CNP Comments: call results to Nabil at [facility] LEFT MAMMOGRAM ([id number])By: Dewayne On: 01-Jan-2015 Pat Patel CNP Comments: call Agus Buchanan at [facility] with results Bone Density StudyBy: Dahiana On: 31-Jan-2014 Lorena Patel MD, MD, Dana M BILATERAL MAMMOGRAMS (56451)By: On: 31-Jan-2014 Lorena Holbrook MD, MD, Dana M Kenalog Injection, 10 mgm On: 05-Dec-2013 Intent (J3301)By: Lorena Talbot MD Comments: lot: [id number]: 04/09site/route: L and R knee/joint injamt: 1cc [...] THOMAS, On: 08-Jun-2013 Intent Becky Ear Irrigation (96309)By: On: 08-Jun-2013 Intent Becky Bryan DO Comments: small amt came out of both ears but still thin film on rim Radiology - Wrist - On: 25-Nov-2012 Intent BilateralBy: Becky Bryan DO Radiology - Hand - BilateralBy: On: 25-Nov-2012 Intent Becky Bryan DO IMMUNIZATION ADMIN (11243)By: On: 04-May-2012 Intent Katerina Broderick Comments: Lot:[id number]:07-30-13Dose:prefilledRoute:IMSite:R armGiven By:ALYSSA COMPLETE ON THIS DATE IMMUNIZATION ADMIN (60002)By: On: 09-Jun-2011 Intent Eneida Beth Comments: Lot:[id number]:01/30/13Amt:prefilledRoute:IMSite:right deltGiven By: KENNEDY Greene IMMUNIZATION ADMIN (12549)By: On: 11-May-2011 Intent Shavon Bunch LPN Comments: Lot #[id number]/1/13Site-right deltoidgiven by: Jeffrey Bunch LPN TDAP VACCINE >7 IM (47997)By: On: 04-May-2011 Intent Lorena Talbot MD, MD, Dana M IMMUNIZATION ADMIN (01647)By: On: 04-May-2011 Intent Lorena Talbot MD, MD, Lorena M Kenalog Injection, 10 mgm On: 27-Jun-2010 Intent (J3301)By: Lorena Talbot MD, MD, Dana M Kenalog Injection, 10 mgm On: 27-Jun-2010 Intent (J3301)By: Lorena Talbot MD, MD, Dana M DXA, BONE DENSITY, AXIAL On: 14-Nov-2009 Intent SKELETON (37044)By: Dahiana HERRING, Comments: estrogen def, medication high risk Lorena Hopson MD Venous Doppler - LeftBy: On: 25-Sep-2009 Intent Lorena Talbot MD, MD, Comments: lower Lorena Lewis Fexpmyiht-Yau-Emyh (43890)By: On: 31-May-2009 Intent Lorena Talbot MD, MD, Comments: pain along rib Lorena Lewis Radiology - Thoracic SpineBy: On: 31-May-2009 Intent Lorena Talbot MD, MD, Dana M PHYSICAL THERAPY EVALUATION On: 03-Apr-2008 Intent ([id number])By: Dewayne LABORER WHARF, Pat Dowling Radiology - ChestBy: Ciesa LABORER WHARF, On: 03-Apr-2008 Intent Asuncion Kenalog Injection, 10 [...] for Follow up acute care visit: In [place] and noted left arm red streak from [...] described as a pressure sensation. It affects leder End: 10-Dec-2015 13:10 th ears. The pain affects the internal ear. There has been associated decreased hearing and nasal congestion. Note for Earache: will be leaving wednesday for [facility]. had sinusitis month ag o. feel great [...] (left). Note for Calf pain: drove to [place] and at [employer]. wearing fit flops. in - left knee [...] incident not at work (working out at [employer]) and has been occurring in an intermittent [...] Osteoarthritis (715.96), Sleep disorder (780.50), Obesity,unspecified (278.00), [facility] Comprehensive Internal Medicine Office Visit On: [...] and type alot and also restart at [facility] Diagnosis: Parasthesia (782.0) Comprehensive Internal Medicine Office [...]
--- OUTSIDE RECORDS SUMMARY | 2018-05-19 10:03 | XMS RPT_ITS | Continuity of Care Document ---
:1955 Author Organization [facility] Address [address] [place] [address] Phone Care Team Providers Name Role Phone [...] Active Cough (R05, 786.2) Comments: [place] in [place] here in [place]. some PND no reflux. Status: Active Deliveries (Parity) Comments: 2 Status: Active Disordered sleep (G47.9, 780.50) Comments: using calm day and working stay away from [facility]. 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 at [facility] 11-16 PFTs normal stable Status: Active Malignant [...] PPD (R76.11, 795.51) Comments: see ID at [facility] in past Status: Active Pregnancies () Comments: [...] Active PredniSONE 5 MG Oral Tablet 1 Tablet once daily for 0 days Quantity: 30 {Tablet} Refills: 0 Ordered:30-Nov-2017 Lorena Talbot MD, MD, Dana M Start : 30-Nov-2017 Active Prolia 60 MG/ML Subcutaneous Solution 1 [...] days Quantity: 9 {Tablet} Refills: 0 Ordered:02-Jul-2016 Daihana HERRING, Lorena Sanchez MD Start : 02-Jul-2016 End : 11-Jul-2016 Inactive [...] for 0 days Refills: 0 Ordered:27-Jun-2008 Marilee Vlilavicencio End : 02-Sep-2007 Discontinued BONIVA, 150MG (Oral Tablet) 1 (one) Tablet monthly for 0 days Quantity: 1 {Tablet} Refills: 5 Ordered:01-Jan-2015 SlaCarmen malloy LPN Start : 22-Feb-2014 End : 01-Jan-2015 [...] with patient xrays look up from the [facility]. CPPD. Status: Inactive as of 11-Jul-2015 Lipoma (D17.9, 214.9) Status: Inactive as of 11-Jul-2015 Low back pain (M54.5, 724.2) Status: Inactive as of 03-Oct-2008 Malnutrition (E46, 263.9) Status: Inactive as of 11-Jul-2015 Neck pain (M54.2, 723.1) Status: Inactive as of 22-Sep-2016 Obesity, unspecified (E66.9, 278.00) Status: Inactive as of 22-Sep-2016 Osteoarthritis (M17.10, 715.96) Comments: [facility] lateral left joint compartment Status: [...] knee surgery left 1999 Completed bilateral foot nyyyvdpci-2011-1527 Completed Carpal Tunnel Completed Comments: left 2010 Dr. Chandler Carpal Tunnel right wrist Completed Comments: Dr. Chandler 06-03-10 Colonoscopy Completed Comments: 11-06-13 Dr. Gimenez repeat in 10 years Hernia 1998 Completed Hysterectomy, Total Completed Comments: Dr. Mabry Lumpectomy Completed Comments: 06/2006-lft breast Tonsillectomy Completed Comments: 1959 Date Value Details 30-Nov-2017 Emergency Department Summary Result: Comments: See Note; NOTES: [facility] Medical Records Department [address] [place] [address] Emergency Department Summary 11/30/17 0934 MR#: [id number] Acct: [id number] Name: SYLVIA RAMIREZ Rep #: [id number] : 1955 62 From: Eliezer Ojeda DO PCP: Lorena Talbot MD Status: REG ER - ER Visit Summary Date of Service: 11/30/17 Chief Complaint: [] History of Present Il lness: The patient is a 62 F [] Physical Examination: [] Test Results: [] Emergency Department Course and Treatment: [] Treatment Plan: [] Disposition: [] Impression: [] This note was generated with Trips n Salsaation software. It may contain incorrect words, spelling, and punctuation that were not noted in review of the chart prior to signing ED Disposition - Plan for ED Patient: Dispositio n: Home or Assisted Living Chief Complaint: Abd Pain Diagnosis: Right upper quadrant abdominal pain of unknown etiology Instructions: ED Abdominal Pain Unkn Cause Prescriptions: Hydrocodone Bitart/Apap 5-325 [Enid 5MG-325MG] 1 tab PO Q6H PRN PRN 3 Days #10 tab PRN Reason: Pain Omeprazole [Prilosec] 20 mg PO DAILY #30 cap Referrals: Lorena Talbot MD [Primary Care Provider] - What to do if you have Problems For any increased pain, shortness of breath, bleeding, nausea or vomiting, chest pain, or any unexpected problems, contact your Primary Care Provider. Call [facility] ([phone]) or report to the closest Emergency Room. Call 911 if necessary. 11/30/17 0937 <Electronically signed by Eliezer Ojeda DO> Date Eliezer sanchez DO Cosigner Signature (If Indicated): Date CC: Lorena Talbot MD 30-Nov-2017 Emergency Department Summary Result: Comments: See Note; NOTES: [facility] Medical Records Department [address] [facility] [place] [address] Emergency Department Summary 11/30/17 0417 MR#: [id number] Acct: [id number] Name: SYLVIA RAMIREZ Rep #: [id number] : 1955 62 From: Bladimir Parikh MD PCP: Lorena Talbot MD Status: REG ER ADDENDUM by Eliezer Ojeda DO on 11/30/17 at 0934 Care of the patient was turned over to me a t 7 AM. Right upper quadrant ultrasound was obtained and was normal. Patient was given a prescription for Prilosec and a short course of Enid. Patient was instructed to follow-up with her [...] given opti on of staying until the stablehand presents in the morning for ultrasound or [...] and vomiting This note was generated with InsightSquared dictation software. It may contain incorrect words, [...] your Primary Care Provider. Call [facility] ([phone]) or report to the closest Emerge ncy Room. Call 911 if necessary. 11/30/17 0702 <Electronically signed by Bladimir Parikh MD> Date Bladimir Parikh MD Cosigner Signature (If Ind icated): Date CC: Lorena Talbot MD 30-Nov-2017 Emergency Department Summary Result: Comments: See Note; NOTES: [facility] Medical Records Department [address] [place] [address] Emergency Department Summary 11/30/17 0417 MR#: [id number] Acct: [id number] Name: SYLVIA RAMIREZ Rep #: [id number] : 1955 62 From: Bladimir Parikh MD [...] or night sweats. She denies any ocular, county auditor y or visual symptoms. She denies [...] was given option of staying until the stablehand presents in the morning for ultrasound or [...] and vomiting This note was generated with crossvertise s oftware. It may contain incorrect words, [...] your Primary Care Provider. Call [facility] ([phone]) or report to the closest Emergency Room. Call 911 if necessary. 11/30/17 0702 <Electronically signed by Bladimir Parikh MD&#62 ; Date Bladimir Parikh MD Cosigner Signature (If Indicated): Date CC: Lorena Talbot MD 30-Nov-2017 Gallbladder Result: Comments: See Note; NOTES: [facility] Imaging Services [address] [place], [place] [address] [address] Gallbladder MR#: [id number] Acct: [id number] Name: SYLVIA RAMIREZ Rep #: [id number] : 1 05/18/1954 F 62 From: Joseph Tony DO PCP: Lorena Talbot MD Status: REG ER Study: Gallbladder Date of Exam: 11/30/17 Exam# [id number] Ordering Dr: Bladimir Parikh MD STUDY: ABDOMINAL [...] CC: Lorena Talbot MD; Bladimir Parikh MD Movie Stunt Performer: Signed 16-Mar-2017 SCREENING MAMM (CAD), BILAT Result: Comments: See Note; NOTES: [facility] Imaging Services [address] [place] [address] SCREENING MAMM (CAD), BILAT MR#: [id number] Acct: [id number] Name: SYLVIA RAMIREZ Rep #: [id number] : 1955 F 61 From: Tobin Sawant MD PCP: Lorena Talbot MD Status: REG CLI Study: SCREENING MAMM (CAD), BILAT Date of Exam: 03/16/17 Exam# [id number] Ordering Dr: Yomi Pérez AMMOGRAPHY - BILATERAL [...] the prior study. HPBI/SCREENING MAMM (CAD), EFREN MEGANIO N: Stable bilateral screening mammogram. Yearly follow-up mammogram recommended. (A) ASSESSMENT CATEGORY: BIRADS Category 2: Benign. A letter regarding these result s will be sent to the patient by the facility within 30 days. Approximately 10% of breast cancers are not detected by mammography. A normal mammogram should not delay biopsy of a clinically suspicious abnormality. [id number] Electronically Signed: Tobin Sawant MD at 10:39 EST Tel [phone], Service support , CC: Lorena Talbot MD; Yomi Pérez DO Movie Stunt Performer: Signed 02-Jul-2016 Chest PA and Lateral Result: Comments: See Note; NOTES: [facility] Imaging Services [address] [place] [address] Verdana 4d Chest PA and Lateral MR#: [id number] Acct: [id number] Name: SYLVIA RAMIREZ Rep #: [id number] : 1955 F 61 From: Yecenia Khan MD PCP: Lorena Talbot MD Status: REG CLI Study: Chest PA and Lateral Date of Exam: 07/02/16 Exam# [id number] Ordering Dr: Lorena Talbot MD STUDY: X-RAY [...] MD at 15:38 EST , Service support [phone], CC: Lorena Talbot MD Movie Stunt Performer: Signed 10-Apr-2016 Vascular Test/LEAS/UEAS Result: Comments: See Note; NOTES: [facility] Cardiovascular Services [address] [place] [address] Verdana 4d Lower Ext Art Exam w/o Exercis MR#: [id number] Acct: [id number] Name: SYLVIA GUADARRAMA Rep #: [id number] : 1955 61 From: Jim Martin MD [...] bilaterally. Jim Vidal MD T: NTS JOB: [id number] 04/10/16 1306 <Electronically signed by Jim Martin MD> Date Jim Martin MD CC: Lorena Talbot MD Date Dictated: 04/08/161722 Date Transcribed: 04/08/161722 Movie Stunt Performer: Signed 10-Mar-2016 Bilat Scrn Digital AND CAD Result: Comments: See Note; NOTES: [facility] Imaging Services [address] [place] [address] Verdana 4d Bilat Scrn Digital AND CAD MR#: [id number] Acct: [id number] Name: SYLVIA RAMIREZ Rep #: [id number] : 1955 F 60 From: Tobin Sawant MD PCP: Lorena Talbot MD Status: REG CLI Study: Bilat Scrn Digital AND CAD Date of Exam: 03/10/16 Exam# [id number] Ordering Dr: Jose Pérez ul DO MAMMOGRAPHY [...] these results will be sent to the [facility] by the facility within 30 days. Approximately 10% of breast cancers are not detected by mammography. A normal mammogram should not delay biopsy of a clinically suspicious abnormality. [id number] Elect ronically Signed: Tobin Sawant MD at 11:03 EST Tel [phone], Service support [phone], CC: Lorena Talbot MD; Yomi Pérez DO Movie Stunt Performer: Signed 10-Mar-2016 Dexa Bone Density Study (HP) Result: Comments: See Note; NOTES: [facility] Imaging Services [address] [place] [address] Verdana 4d Dexa Bone Density Study (HP) MR#: [id number] Acct: [id number] Name: MARCELA RAMIREZ Rep #: [id number] : 1955 F 60 From: Tobin Sawant MD PCP: Loerna Talbot MD Status: REG CLI Study: Dexa Bone Density Study (HP) Date of Exam: 03/10/16 Exam# [id number] Ordering Dr: KODY NESBITT STUDY: DUAL ENERGY [...] Tobin Sawant MD at 10:18 EST Tel [phone], Service support [phone], CC: Lorena Talbot MD; KODY NESBITT Movie Stunt Performer: Signed 07-Jul-2015 History and Physical Exam Result: Comments: See Note; NOTES: [facility] Medical Records Department [address] [place] [address] History and Physical 07/07/15 1809 MR#: [id number] Acct: [id number] Name: ANNAMARIASYLVIA Rep #: [id number] : 1955 60 From: Lucy Figueroa MD [...] mentioned above presented to the emergency room [facility] of left upper extremity soreness, pain, erythema [...] [Vitamin 2,000 unit PO DAILY 07/07/15 D] [place]-3 Fatty Acids/Fish Oil 2 each PO DAILY 07/07/15 [[place] 3 1,000 mg Softgel] Turmeric [Turmeric Root] [...] 92.3 H Lymph % (Auto) 4.1 L [place] % (Auto) 2.2 Eos % (Auto) 1.0 [...] Subcu Lovenox. This note was generated with Trips n Salsaation software. It may contain incorrect words, spelling, and punct uation that were not noted in checking the note before signing. 07/07/15 1818 <Electronically signed by Lucy Figueroa MD> Date Lucy Figueroa MD Cosigner Signature (if applicable): Date CC: Lroena Talbot MD; Lucy Figueroa Signed 18-Apr-2015 Operative Report Result: Comments: See Note; NOTES: [facility] Medical Records Department [address] [place] [address] Operative Report MR#: [id number] Acct: [id number] Name: KIRSTEN RAMIREZ Rep #: [id number] : 1955 60 From: Galileo Quinones DPM PCP: Lorena Talbot MD Status: [facility] DATE OF SERVICE: DATE OF SURGERY: April [...] corticosteroid injections, immobilization, anti- inflammatories, activity modifications; phelps morales, still has pain chronic pian to the [...] needed. Galileo Quinones DPM T: NTS JOB: [id number] 04/18/15 0757 <Electronic ally signed by Galileo Quinones DPM> Date Galileo Quinones DPM Cosigner Signature (If Indicated): Date CC: Lorena Talbot MD; Galileo Quinones DPM Date Dictated: 04/12/15 1647 Date Transcribed: 04/12/151647 Movie Stunt Performer: Signed 12-Apr-2015 Discharge Instruction Result: Comments: See Note; NOTES: [facility] Medical Records Department [address] [place] [address] Instructions for Home/Discharge Instructions 04/12/15 1639 MR#: [id number] Acct: [id number] Name: SYLVIA RAMIREZ Rep #: [id number] : 1955 60 From: Galileo Quinones DPM PCP: Lorena Talbot MD Status: REG [facility] Discharge Diet: Light diet - advance as [...] and Lateral Result: Comments: See Note; NOTES: [facility] Imaging Services [address] [place] [address] Verdana 4d Chest PA and Lateral MR#: [id number] Acct: [id number] Name: ALICIA RAMIREZETTE Rep #: [id number] : 1955 F 60 From: Jose Fagan MD PCP: Lorena Talbot MD Status: PRE SDC Study: Chest PA and Lateral Date of Exam: 04/04/15 Exam# [id number] Ordering Dr: Virgen Quinones DPM STUDY: X-RAY [...] FACR at 13:58 EST , Service support [phone], RAD/Chest PA and Lateral IMPRESSION: No signs of acute cardiopulmonary disease Electronically Signed: Jose Fagan MD, FACR at 13:58 EST , Service support [phone], CC: Lorena Talbot MD; Galileo Quinones DPM Movie Stunt Performer: Signed 29-Mar-2015 EKG (34834) Comments: nsr no acute chg poor R wave progression Result: [MEASUREMENTS ANALYSIS] Date of Test: 03/29/2015 13:38:32; Heart Rate: 73; DC Interval: 180; QRS: 88; QT Interval: 380; Corrected QT Interval (QTc): 402; P Wave [place]: 33; QRS Wave [place]: 30; T Wave [place]: 29; Blood Pressure: 120/78 [ECG DIAGNOSTIC STATEMENTS] Date of Test: 03/29/2015 13:38:32; Summary: Sinus Rhythm WITHIN NORMAL LIMITS -Mar-2015 Inital Evaluation - PT Result: Comments: See Note; NOTES: [facility] [address] [place] [address] Fax REHABILITATION SE DEL CID INITIAL EVALUATION MR#: [id number] Acct: [id number] Name: SYLVIA RAMIREZ Rep #: [id number] : 1955 60 From: Gurdeep Carson Referring Dr.: Galileo Quinones DPM Status: REG RCR Ins urance: [facility] Evva Date: Patient's Visit Information SYLVIA RAMIREZ is [...] to be FAXED BACK to us at [phone] for Medicare purposes. Please let me know if there are questions or concerns regarding this plan of care. Physician Signature: Date: <Electronically signed by Gurdeep Carson > 03/28/15 1140 CC: Lorena Talbot MD; Galileo Quinones DPM [facility] Jeanne d For Medicare only, by signing this I certify the plan of care. Physicians Signature Date 08-Mar-2015 Unilat Rt Scrn Digital AND CAD Result: Comments: See Note; NOTES: [facility] Imaging Services [address] [place] [address] Verdana 4d Unilat Rt Scrn Digital AND CAD MR#: [id number] Acct: [id number] Na me: SYLVIA RAMIREZ Rep #: [id number] : 1955 F 59 From: Tobin Sawant MD PCP: Lorena Talbot MD Status: REG CLI Study: Unilat Rt Scrn Digital AND CAD Date of Exam: 03/08/15 Exam# [id number] Ordering Dr: Pat Buchanan MAMMOGRAPHY - UNILATERAL [...] delay biopsy of a clinically suspicious abnormality. [id number] Electronically Signed: Tobin Sawant MD 201 09/03/12 at 11:11 EST Tel [phone], Service support [phone], CC: Pat Buchanan; Lorena Talbot MD Movie Stunt Performer: Signed 04-Mar-2015 Lower Ext/No Jt/w/o Result: Comments: See Note; NOTES: [facility] Imaging Services [address] [place] [address] Verdalila 4d Lower Ext/No Jt/w/o MR#: [id number] Acct: [id number] Name: Cirilo RAMIREZ Rep #: [id number] : 1955 F 59 From: Jose Fagan MD PCP: Lorena Talbot MD Status: REG CLI Study: Lower Ext/No Jt/w/o Date of Exam: 03/04/15 Exam# [id number] Ordering Dr: Ward Quinones DPM STUDY: MRI [...] at 10:47 EST Tel , Service support [phone], CC: Lorena Talbot MD; Galileo Quinones DPM Movie Stunt Performer: Signed 15-Jan-2015 Breast Limited Unilateral Result: Comments: See Note; NOTES: [facility] Imaging Services [address] [place] [address] Ultrasound Report MR#: [id number] Acct: [id number] Name: SYLVIA RAMIREZ Rep #: [id number] : 1955 F 59 From: Tobin Sawant MD PCP: Lorena Talbot MD Status: REG CLI Study: Breast Limited Unilateral Date of Exam: 01/15/15 Exam# [id number] Ordering Dr: Pat Buchanan STUDY : ULTRASOUND [...] Tobin Sawant MD at 13:27 EDT Tel [phone], Service support [phone], CC: Pat Buchanan ; Lorena Talbot MD Movie Stunt Performer: Signed 01-Jan-2015 Breast Limited Unilateral Result: Comments: See Note; NOTES: [facility] Imaging Services [address] [place] [address] Ultrasound Report MR#: [id number] Acct: [id number] Name: SYLVIA RAMIREZ Rep #: [id number] : 1955 F 59 From: Frantz Rojas MD PCP: Lorena Talbot MD Status: REG CLI Study: Breast Limited Unilateral Date of Exam: 01/01/15 Exam# [id number] Ordering Dr: Pat Buchanan STUDY: ULT RASOUND [...] patient by the facility within 30 days. Azucenai janell Signed: Laly Rojas MD at 15:39 EDT Tel , Service support [phone], CC: Pat Buchanan; Lorena Talbot MD Movie Stunt Performer: Signed 01-Jan-2015 Unilat Lt Diag Digital AND CAD Result: Comments: See Note; NOTES: [facility] Imaging Services [address] [place] [address] Breast Imaging Report MR#: [id number] Acct: [id number] Name: SYLVIA RAMIREZ Rep #: [id number] : 1955 F 59 From: Frantz Rojas MD PCP: Lorena Talbot MD Status: REG CLI Study: Unilat Lt Diag Digital AND CAD Date of Exam: 01/01/15 Exam# [id number] Ordering Dr: Pat Buchanan AMMOGRAPHY - UNILATERAL [...] t 15:34 EDT Tel , Service support [phone], CC: Pat Buchanan; Lorena Talbot MD Movie Stunt Performer: Signed 21-Feb-2014 Bilat Scrn Digital & CAD Result: Comments: See Note; NOTES: [facility] Imaging Services [address] [place] [address] Breast Imaging Report MR#: [id number] Acct: [id number] Name: SYLVIA RAMIREZ Rep #: [id number] : 1955 F 58 From: Tobin Sawant MD PCP: Lorena Talbot MD Status: REG CLI Exam# [id number] Ordering Dr: Lorena Talbot MD MAMMOGRAPHY - [...] MD 201 08/03/28 at 9:41 EDT Tel [phone], Service support [phone], CC: Lorena Talbot MD Movie Stunt Performer: Signed 21-Feb-2014 Dexa Bone Density Study (HP) Result: Comments: See Note; NOTES: [facility] Imaging Services [address] [place] [address] Bone Density Report MR#: [id number] Acct: [id number] Name: SYLVIA RAMIREZ Rep #: [id number] : 1955 F 58 From: Tobin Sawant MD PCP: Lorena Talbot MD Status: [facility] CLI Study: Dexa Bone Density Study (HP) Date of Exam: 02/21/14 Exam# [id number] Ordering Dr: Lorena Talbot MD STUDY: DUAL [...] Tobin Sawant MD at 12:35 EDT Tel [phone], Service support [phone], CC: Lorena Talbot MD Movie Stunt Performer: Signed 08-Feb-2014 PT Discharge Summary Result: Comments: See Note; NOTES: [facility] [place] [address] Fax REHABILITATION SERVICES DISCHARGE SUMMARY MR#: [id number] Acct: [id number] Name: SYLVIA RAMIREZ Rep #: [id number] : 1955 58 From: Karrie Chris Referring [...] it is appropriate she be discharged from [facility] and continue independent home exercise progra m. The patient was encouraged to call if she does have any questions or concerns. Karrie Chris DPT T: KRISHAN JOB: [id number] <Electronically signed by Karrie Chris > 02/08/14 0705 CC: Signed 02-Jan-2014 Inital Evaluation - PT Result: Comments: See Note; NOTES: [facility] [address] [place] [address] Fax REHABILITATION SERVICES INITIAL EVALUATION MR#: [id number] Acct: [id number] Name: SYLVIA RAMIREZ Rep #: [id number] : 1955 58 From: Karrie Chris Referring Dr.: Haile Aguilera DO Status: REG R [facility] Eval Date: DATE OF SERVICE: [...] On Wednesday she is leaving for the [place] and will be gone for approximately 2 [...] return to normal activities with decreased pain. ERIN [place]: KRISHAN JOB: [id number] <Electronically signed by Karrie Chris > 01/02/14 0908 CC: Signed For Medicare [...] Situation Comments: single lives alone, annie olivares [phone] dtr Status: Active No Drug Use Status: Active Non Smoker/No Tobacco Use Status: Active Number of Adult (age 18 or over) Dependents Comments: 2 Status: Active Tobacco use: Former smoker. Status: Active Smoking Status Name Dates Details Former smoker Vital Signs Date Test Result Details :39 Pulse 70 /min Comments: Pattern: Regular Respiration Rate 18 /min O2 SAT 97 % Comments: Room air BP Systolic 114 mm[Hg] Comments: Patient Position: Sitting BP Diastolic 70 mm[Hg] Comments: Patient Position: Sitting :58 Temperature 97.6 f Comments: Method: Temporal Pulse [...] 0.00 cm Results Date Description Value Details 29-Pfu-879466:35 Methymalonic Acid, Serum Comments: PATIENT NOT FASTINGPERFORMED BY: [employer] [id number] BY: [employer] [id number] ([address]) Disclaimer: SPRCS (Normal) Comments: This test was developed and its performance characteristicsdetermined by [employer]. It has not been cleared or approvedby the Food and Drug Administration. Methylmalonic Acid, Serum 82 nmol/L (Normal) Range: 0-378 50-Ebh-160923:35 Vitamin B-12 Comments: PATIENT NOT FASTINGPERFORMED BY: [employer] [id number] BY: [employer] [id number] (cyanocobalamin) (94005) Vitamin B12 852 pg/mL (Normal) Range: 232-1245 83-Nul-264798:35 HELICOBACTER PYLORI Comments: PATIENT NOT FASTINGPERFORMED BY: [employer] [id number] BY: [facility] [facility] [id number] ANTIBODY (03044) H. pylori, IgG Abs 0.17 {Index_Value} (Normal) Range: 0.00-0.79 Comments: Negative <0.80 Equivocal 0.80 - 0.89 Positive >0.89 60-Mdq-869066:35 Creatine Kinase Total Comments: PATIENT NOT FASTINGPERFORMED BY: [address] [id number] BY: [place] [id number] [facility] [id number] (78240) Creatine Kinase,Total 425 U/L (Abnormal) Range: 24-173 76-Jiy-400257:35 C-Reactive Protein Comments: PATIENT NOT FASTINGPERFORMED BY: [employer] [id number] BY: [address] [id number] ([address]) C-Reactive Protein, Quant 6.0 mg/L (Abnormal) Range: 0.0-4.9 30-Nov-20172:50 Basic Metabolic Profile (BMP) Comments: [facility] [address] [place], [address] GAP 10 (Normal) Range: 5-15 CO2 26.0 [...] A.D.A. criteria.Please note revised GLUCOSE reference range nuhczichy97/02/2018. :50 CBC W/Diff, Automated Comments: [facility] [address] [place], [place], [id number] SMEAR COMMENT SCANNED (Normal) Absolute Lymph 0.21 [...] 4.4-11.0 :50 Lipase Comments: [facility] [address] [place], [id number] LIPASE 171 U/L (Normal) Range: 73-393 30-Nov-20172:50 Liver Profile Comments: [address] [place], [id number] D BILI 0.27 mg/dL (Normal) Range: 0.00-0.30 T BILI 1.10 mg/dL (Abnormal) Range: 0.20-1.00 ALT 36 U/L (Normal) Range: 13-56 ALK P 46 U/L (Normal) Range: 45-117 AST 32 U/L (Normal) Range: 15-37 GLOB 3.9 g/dL (Normal) Range: 2.2-4.2 ALB 3.6 g/dL (Normal) Range: 3.2-5.0 T PROT 7.5 g/dL (Normal) Range: 6.4-8.2 82-Rik-238865:27 CBC-Complete Blood Cnt No Diff Comments: [facility] [address] [place], [place], [id number] MPV 10.2 fL (Normal) Range: 6.2-12.0 PLT [...] 4.2-5.4 WBC 4.0 K/mm3 (Abnormal) Range: 4.4-11.0 71-Umz-480564:27 CPK Total, Creatine Kinase Comments: [address] [place], [id number] CPK TOTAL 577 U/L (Abnormal) Range: 26-192 56-Vhq-127238:27 Liver Profile Comments: [facility] [address] [place], [place], [address] D BILI 0.16 mg/dL (Normal) Range: 0.00-0.30 T BILI 0.90 mg/dL (Normal) Range: 0.20-1.00 ALT 36 U/L (Normal) Range: 13-56 ALK P 43 U/L (Abnormal) Range: 45-117 AST 33 U/L (Normal) Range: 15-37 GLOB 3.7 g/dL (Normal) Range: 2.2-4.2 ALB 3.8 g/dL (Normal) Range: 3.2-5.0 T PROT 7.5 g/dL (Normal) Range: 6.4-8.2 44-Vvi-757775:27 Serum Creatinine AND GFR Comments: [facility] [address] [place], [place], [address] EST GFR - AA 163 mL/min (Normal) Comments: GFR Calc EST GFR 135 mL/min (Normal) Comments: Non- GFR Calc CREAT,SERUM 0.49 mg/dL (Abnormal) Range: 0.55-1.02 Comments: The validity of the calculated GFR AND GFRAA in patients over70 years has not been determined. Clinical correlation isessential. 24-Zic-390154:23 CBC W/Diff, Automated Comments: [facility] [address] [place], [place], [address] BASO STIP RARE (Normal) PLT EST ADEQUATE [...] Cnt No Diff Comments: [facility] [address] [place], [place], [address] MPV 10.1 fL (Normal) Range: 6.2-12.0 PLT [...] Total, Creatine Kinase Comments: [facility] [address] [place], [place], [address] CPK TOTAL 909 U/L (Abnormal) Range: 26-192 :34 Liver Profile Comments: [facility] [address] [place], [address] D BILI 0.16 mg/dL (Normal) Range: 0.00-0.30 T BILI 0.70 mg/dL (Normal) Range: 0.20-1.00 ALT 49 U/L (Normal) Range: 13-56 ALK P 52 U/L (Normal) Range: 45-117 AST 44 U/L (Abnormal) Range: 15-37 GLOB 3.8 g/dL (Normal) Range: 2.2-4.2 ALB 3.5 g/dL (Normal) Range: 3.2-5.0 T PROT 7.3 g/dL (Normal) Range: 6.4-8.2 :34 Serum Creatinine AND GFR Comments: [facility] [address] [place], [place], [address] EST GFR - AA 192 mL/min (Normal) [...] B CORE,TOT Negative (Normal) Comments: Performed at: [facility] [place], [place] [id number] Director: Arsh Cuellar PhD, Phone: [phone] 13-Tbp-32500:23 Hepatitis C Antibodies Comments: Is Patient F[facility]? [facility] (refer to report for specific site)refer to report for address and phone number HEP C AB 0.1 {s/co_ratio} (Normal) Range: 0.0-0.9 Comments: Negative: < 0.8 Indeterminate: 0.8 - 0.9 Positive: > 0.9 The CDC recommends that a positive HCV antibody result be followed up with a HCV Nucleic Acid Amplification test (029887). :23 Immunoglobulins G/A/M Comments: Is Patient Fasting? [facility] (refer to report for specific site)refer to report for address and phone number IMMUNOGL M 202 mg/dL (Normal) Range: 26-217 IMMUNO A 165 mg/dL (Normal) Range: 87-352 IMMUNO G 1092 mg/dL (Normal) Range: 700-1600 87-Rxv-347151:18 CBC-Complete Blood Cnt No Diff Comments: [facility] [address] [place], [place], [address] MPV 11.1 fL (Normal) Range: 6.2-12.0 PLT [...] 4.2-5.4 WBC 4.9 K/mm3 (Normal) Range: 4.4-11.0 93-Lkg-102937:18 Liver Profile Comments: [facility] [address] [place], [address] D BILI 0.13 mg/dL (Normal) Range: 0.00-0.30 T BILI 0.60 mg/dL (Normal) Range: 0.20-1.00 ALT 56 U/L (Normal) Range: 13-56 Comments: Please note revised ALT reference range lrhufbfbl94/28/2018. ALK P 49 U/L (Normal) Range: 45-117 AST 57 U/L (Abnormal) Range: 15-37 GLOB 3.6 g/dL (Normal) Range: 2.2-4.2 ALB 3.6 g/dL (Normal) Range: 3.2-5.0 T PROT 7.2 g/dL (Normal) Range: 6.4-8.2 87-Ygj-728316:18 Serum Creatinine AND GFR Comments: [facility] F[address]wf[address]azgmo79[address] [facility] [address]. [place], [place], [address] EST GFR - AA 164 mL/min (Normal) Comments: GFR Calc EST GFR 135 mL/min (Normal) Comments: Non- GFR Calc CREAT,SERUM 0.49 mg/dL (Abnormal) Range: 0.55-1.02 Comments: The validity of the calculated GFR AND GFRAA in patients over70 years has not been determined. Clinical correlation isessential. 22-Jjs-26932:40 CBC-Complete Blood Cnt No Diff Comments: [facility] [address] [place], [address] MPV 11.0 fL (Normal) Range: [...] Total, Creatine Kinase Comments: [facility] [address] [place], [address] CPK TOTAL 1418 U/L (Abnormal) Range: 26-192 25-Gzh-93812:40 Liver Profile Comments: [facility] [address] [place], [address] D BILI 0.12 mg/dL (Normal) Range: 0.00-0.30 T BILI 0.60 mg/dL (Normal) Range: 0.20-1.00 ALT 59 U/L (Abnormal) Range: 13-56 Comments: Please note revised ALT reference range pzgfqbuqe53/28/2018. ALK P 48 U/L (Normal) Range: 45-117 AST 60 U/L (Abnormal) Range: 15-37 GLOB 3.6 g/dL (Normal) Range: 2.2-4.2 ALB 3.4 g/dL (Normal) Range: 3.2-5.0 T PROT 7.0 g/dL (Normal) Range: 6.4-8.2 :40 Serum Creatinine AND GFR Comments: [facility] [address] [place], [address] EST GFR - AA 201 mL/min (Normal) Comments: GFR Calc EST GFR 166 mL/min (Normal) Comments: Non- GFR Calc CREAT,SERUM 0.41 mg/dL (Abnormal) Range: 0.55-1.02 Comments: The validity of the calculated GFR AND GFRAA in patients over70 years has not been determined. Clinical correlation isessential. 61-Rdw-357609:31 CBC-Complete Blood Cnt No Diff Comments: [facility] [address] [place] [place], [address] MPV 10.5 fL (Normal) Range: 6.2-12.0 PLT [...] 4.2-5.4 WBC 5.0 K/mm3 (Normal) Range: 4.4-11.0 76-Lkt-809792:31 CPK Total, Creatine Kinase Comments: [facility] N[address]xf[address] [facility] [address]. [place], [place], [address] CPK TOTAL 924 U/L (Abnormal) Range: 26-192 33-Xkd-667366:31 Liver Profile Comments: [facility] [address] [place], [address] D BILI 0.12 mg/dL (Normal) [...] T PROT 7.6 g/dL (Normal) Range: 6.4-8.2 88-Mvl-859699:31 Serum Creatinine AND GFR Comments: [facility] [address] [place], [place], [address] EST GFR - AA 142 mL/min (Normal) Comments: GFR Calc EST GFR 117 mL/min (Normal) Comments: Non- GFR Calc CREAT,SERUM 0.56 mg/dL (Normal) Range: 0.55-1.02 Comments: The validity of the calculated GFR AND GFRAA in patients over70 years has not been determined. Clinical correlation isessential. :18 CBC-Complete Blood Cnt No Diff Comments: [facility] [address] [place], [place], [address] MPV 10.6 fL (Normal) Range: 6.2-12.0 PLT [...] 4.2-5.4 WBC 5.3 K/mm3 (Normal) Range: 4.4-11.0 03-Pih-10371:18 CPK Total, Creatine Kinase Comments: [facility] [address] [place], [place], [address] CPK TOTAL 1718 U/L (Abnormal) Range: 26-192 05-Yjy-25719:18 Liver Profile Comments: [facility] [address] [place], [place], [address] D BILI 0.14 mg/dL (Normal) Range: 0.00-0.30 T BILI 0.60 mg/dL (Normal) Range: 0.20-1.00 ALT 58 U/L (Normal) Range: 12-78 ALK P 48 U/L (Normal) Range: 45-117 AST 60 U/L (Abnormal) Range: 15-37 GLOB 3.7 g/dL (Normal) Range: 2.2-4.2 ALB 3.5 g/dL (Normal) Range: 3.4-5.0 Comments: Please note revised Albumin AND Globulin reference rangeeffective 2017. T PROT 7.2 g/dL (Normal) Range: 6.4-8.2 94-Eig-05795:18 Serum Creatinine AND GFR Comments: [facility] [address] [place], [place], [address] EST GFR - AA 175 mL/min (Normal) Comments: GFR Calc EST GFR 145 mL/min (Normal) Comments: Non- GFR Calc CREAT,SERUM 0.46 mg/dL (Abnormal) Range: 0.55-1.02 Comments: The validity of the calculated GFR AND GFRAA in patients over70 years has not been determined. Clinical correlation isessential. 90-Ulc-074150:43 Basic Metabolic Profile (BMP) Comments: [facility] [address] [place], [address] GAP 9 (Normal) Range: 5-15 [...] 7-18 GLU 97 mg/dL (Normal) Range: 70-110 08-Rce-944749:43 CBC W/Diff, Automated Comments: [facility] [address] [place], [address] OVALOCYTE RARE (Normal) MACROCYTE 1+ [...] 4.2-5.4 WBC 5.5 K/mm3 (Normal) Range: 4.4-11.0 65-Iyf-038905:43 CPK Total, Creatine Kinase Comments: [facility] [address] [place], [place], [address] CPK TOTAL 1846 U/L (Abnormal) Range: 26-192 47-Lfu-013510:43 Liver Profile Comments: [facility] Birjdvcvfi7930 [facility] [place], [place], [address] D BILI 0.17 mg/dL (Normal) Range: 0.00-0.30 T BILI 0.70 mg/dL (Normal) Range: 0.20-1.00 ALT 60 U/L (Normal) Range: 12-78 ALK P 55 U/L (Normal) Range: 45-117 AST 69 U/L (Abnormal) Range: 15-37 GLOB 3.4 g/dL (Normal) Range: 2.3-3.5 ALB 3.7 g/dL (Normal) Range: 3.4-5.0 T PROT 7.1 g/dL (Normal) Range: 6.4-8.2 41-Kka-667143:26 Basic Metabolic Profile (BMP) Comments: [facility] [address] [place], [place], [address] GAP 6 (Normal) Range: 5-15 CO2 27.0 [...] 7-18 GLU 96 mg/dL (Normal) Range: 70-110 93-Inq-262675:26 CBC W/Diff, Automated Comments: [facility] [address] [place], [place], [address] Absolute Lymph 0.33 {X10_3/ul} (Abnormal) Range: 0.83-4.51 [...] 4.2-5.4 WBC 5.2 K/mm3 (Normal) Range: 4.4-11.0 27-Tou-291832:26 CPK Total, Creatine Kinase Comments: [facility] [address] [place] [address], [address] CPK TOTAL 1661 U/L (Abnormal) Range: 26-192 60-Dqv-090545:26 Liver Profile Comments: [address], [address] D BILI 0.12 mg/dL (Normal) Range: 0.00-0.30 T BILI 0.60 mg/dL (Normal) Range: 0.20-1.00 ALT 54 U/L (Normal) Range: 12-78 ALK P 50 U/L (Normal) Range: 45-117 AST 58 U/L (Abnormal) Range: 15-37 GLOB 3.9 g/dL (Abnormal) Range: 2.3-3.5 ALB 3.6 g/dL (Normal) Range: 3.4-5.0 T PROT 7.5 g/dL (Normal) Range: 6.4-8.2 6-Fcr-994412:44 CBC W/Diff, Automated Comments: ADD TO 0503:I822YKN TO 0503:H545[facility] [address]rfkkg[address] [place] [address], [address] SMEAR COMMENT COMMENT (Normal) Comments: SLIDE [...] 4.2-5.4 WBC 5.4 K/mm3 (Normal) Range: 4.4-11.0 4-Tlm-688096:42 CPK Total, Creatine Comments: ADD CPK/BMP/MQTZOTY8-6-HAhwwlxyUniversity [facility]als [facility] [address] [place], [place], [address] Kinase CPK TOTAL 1438 U/L (Abnormal) Range: 26-192 7-Gas-464945:42 CRP Comments: ADD CPK/BMP/PXTYPYL0-4-FDhswwqcUniversity Hospitals [facility] [address] [place], [place], [address] C-REACTIVE PROT 4.67 mg/L (Abnormal) Range: 0.0-3.0 Comments: C-Reactive Protein (CRP) provides useful information for thediagnosis, therapy and monitoring of inflammatory processesand associated diseases. For the evaluation of Relative Riskfor Cardiovascular Dise ase, a High Sensitivity CRP (HSCRP)should be ordered. 2-Lxa-327071:42 Erythrocyte Sed Rate Comments: [facility] [address] [place], [address] SED RATE 39 mm/h (Abnormal) Range: 0-30 9-Hbd-767311:42 Hepatitis ABC Profile Comments: [facility] (refer to report for specific site)refer to report for address and phone number COMMENT Comment (Normal) Comments: Non reactive HCV antibody screen is consistent with no HCVinfection, unless recent infection is suspected or otherevidence exists to indicate HCV infection.Performed at: [facility] [address] [id number] Director: Arsh Cuellar PhD, Phone: [phone] HCV Ab <0.1 {s/co_ratio} (Normal) Range: 0.0-0.9 Hep B Michael AB Reactive (Normal) Comments: Non Reactive: Inconsistent with immunity, less than 10 mIU/mL Reactive: Consistent with immunity, greater than 9.9 mIU/mL HEP B CORE,TOT Negative (Normal) HB CORE MC85219 Negative (Normal) HB SURF AG Negative (Normal) HEP A AB,T.6726 Positive (Abnormal) HEP A IgM 6734 Negative (Normal) 44-Iiu-930836:35 Basic Metabolic Profile (BMP) Comments: [facility] [address] [place], [address] GAP 7 (Normal) Range: 5-15 [...] 7-18 GLU 105 mg/dL (Normal) Range: 70-110 71-Qxb-023519:35 CBC W/Diff, Automated Comments: [facility] [address] [place], [place], [address] Absolute Lymph 0.28 {X10_3/ul} (Abnormal) Range: 0.83-4.51 [...] 4.2-5.4 WBC 5.3 K/mm3 (Normal) Range: 4.4-11.0 90-Kkl-058448:35 CPK Total, Creatine Kinase Comments: [facility] [address] [place], [place], [address] CPK TOTAL 2479 U/L (Abnormal) Range: 26-192 57-Ufa-227493:35 Liver Profile Comments: [facility] [address] [place], [place], [address] D BILI 0.17 mg/dL (Normal) Range: 0.00-0.30 T BILI 0.90 mg/dL (Normal) Range: 0.20-1.00 ALT 105 U/L (Abnormal) Range: 12-78 ALK P 52 U/L (Normal) Range: 45-117 AST 102 U/L (Abnormal) Range: 15-37 GLOB 3.6 g/dL (Abnormal) Range: 2.3-3.5 ALB 3.5 g/dL (Normal) Range: 3.4-5.0 T PROT 7.1 g/dL (Normal) Range: 6.4-8.2 5-Bag-291518:33 Basic Metabolic Profile (BMP) Comments: [facility] [address] [place], [place], [address] GAP 9 (Normal) Range: 5-15 CO2 27.0 [...] 7-18 GLU 94 mg/dL (Normal) Range: 70-110 6-Opc-346411:33 CBC W/Diff, Automated Comments: [facility] [address] [place], [address] ANISO 2+ (Normal) Absolute Lymph 0.32 {X10_3/ul} [...] 4.2-5.4 WBC 4.8 K/mm3 (Normal) Range: 4.4-11.0 1-Sqy-349663:33 CPK Total, Creatine Kinase Comments: [facility] [address]td[address] [place], [place], [address] CPK TOTAL 2987 U/L (Abnormal) Range: 26-192 3-Ilu-887576:33 Liver Profile Comments: [facility] [address] [place], [place], [address] D BILI 0.09 mg/dL (Normal) Range: 0.00-0.30 T BILI 0.60 mg/dL (Normal) Range: 0.20-1.00 ALT 120 U/L (Abnormal) Range: 12-78 ALK P 62 U/L (Normal) Range: 45-117 AST 115 U/L (Abnormal) Range: 15-37 GLOB 3.6 g/dL (Abnormal) Range: 2.3-3.5 ALB 3.5 g/dL (Normal) Range: 3.4-5.0 T PROT 7.1 g/dL (Normal) Range: 6.4-8.2 48-Vaz-570617:54 Basic Metabolic Profile (BMP) Comments: [facility] [address] [place], [place], [address] GAP 11 (Normal) Range: 5-15 CO2 25.0 [...] 7-18 GLU 102 mg/dL (Normal) Range: 70-110 17-Oxe-898631:54 CBC W/Diff, Automated Comments: [facility] [address] [place], [place], [address] POIK RARE (Normal) PLT EST ADEQUATE (Normal) [...] 4.2-5.4 WBC 5.1 K/mm3 (Normal) Range: 4.4-11.0 56-Jlh-389795:54 CPK Total, Creatine Kinase Comments: [facility] [address] [place], [place], [address] CPK TOTAL 1840 U/L (Abnormal) Range: 26-192 00-Rxx-583946:54 Liver Profile Comments: [facility] [address] [place], [place], [address] D BILI 0.13 mg/dL (Normal) Range: 0.00-0.30 T BILI 0.50 mg/dL (Normal) Range: 0.20-1.00 ALT 70 U/L (Normal) Range: 12-78 ALK P 56 U/L (Normal) Range: 45-117 AST 76 U/L (Abnormal) Range: 15-37 GLOB 3.7 g/dL (Abnormal) Range: 2.3-3.5 ALB 3.5 g/dL (Normal) Range: 3.4-5.0 T PROT 7.2 g/dL (Normal) Range: 6.4-8.2 :55 TEMPORAL ARTERY BX See Note (Normal) Comments: [facility] [address] [place], [place], [address] Comments: Patient: SYLVIA RAMIREZ : 1955 (60/F) Acct Num: [id number] Phys: Lyndon Saavedra MD Unit Num: [id number] Loc: LABSPEC Specimen: [id number] Received: 01/20/161813 Spec Type : TEMPORAL TISSUES TISSUES: COMMENT Elastic stain with matched control is used in the evaluation of the specimen. GROSS DESCRIPTION Received is one container labeled with the pat ient's name and designated left temporal artery. The specimen consists of a single elongated fragment of wiley tissue measuring 0.5 x <0.1 x <0.1 cm. The specimen is totally submitted in [facility] ette for post fixation serial sectioning. / AM:rickie 01/21/16 TC:5 CPT:38371, 34463 HEADER OPERATION: Left temporal artery biopsy PRE-OP [...] W/Diff, Automated Comments: Order Date: 01/10/16[facility] Date: [facility] [address]dcdiufaot4[address] [place], [place], [address] SMEAR COMMENT SCANNED (Normal) Absolute Lymph 0.26 [...] :05 CRP Comments: Order Date: 01/10/16Order Date: [facility] [address]czzg[address] [place], [place], [address] C-REACTIVE PROT 192.00 mg/L (Abnormal) Range: 0.0-3.0 Comments: C-Reactive Protein (CRP) provides useful information for thediagnosis, therapy and monitoring of inflammatory processesand associated diseases. For the evaluation of Relative Riskfor Cardiovascular Dise ase, a High Sensitivity CRP (HSCRP)should be ordered. :05 Erythrocyte Sed Rate Comments: Order Date: 01/10/16Order Date: [facility] [address]gxjuab[address] [place], [address] SED RATE 79 mm/h (Abnormal) Range: 0-30 46-Sdm-216293:46 Basic Metabolic Profile (BMP) Comments: [facility] [address]td[address] [place], [address] GAP 3 (Abnormal) Range: 5-15 CO2 27.0 [...] CBC W/Diff, Automated Comments: [facility] [address] [place], [address] ANISO 1+ (Normal) PLT EST ADEQUATE (Normal) [...] (Abnormal) WBC 5.1 K/mm3 (Normal) Range: 4.4-11.0 65-Nqr-246825: NEUROMA - See Note (Normal) Comments: [facility] [address] [place], [address] [facility]/TRAUMATIC Comments: Patient: SYLVIA RAMIREZ : 1955 (60/F) Acct Num: [id number] Phys: Stacie [facility] Unit Num: [id number] [place] [facility]: [id number] Received: 04/15/15 - 0755 Spec Type: N EUROMA TISSUES TISSUES: GROSS DESCRIPTION Received is one container labeled with the patient name and designated right third intermetatarsal space neuroma. The specimen consists of multiple pieces of wiley-yellow soft tissue measuring in aggregate 2.5 x 2 x 0.3 cm. The specimenis totally submitted in one cassette. 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 MICROSCOPIC DIAGNOSIS Soft tissue of right hand, third intermetatarsal space, excision: Consistent with neuroma. AM: 04/16/15 Signed [facility] 04/16/15 <signature on file> 12-Ttx-488128: BREAST BIOPSY (CHOOSE See Note (Normal) Comments: [facility] [address] [place], [address] 10 SITE) Comments: Patient: SYLVIA RAMIREZ : 1955 (59/F) Acct Num: [id number] Phys: Preeti HERRING,Jaxon Unit Num: [id number] Loc: LABSPEC Specimen: [id number] Received: 02/06/151614 Spec Type: BREAST BX TISSUES [...] one cassette. / AM: 02/07/15 TC:5 CPT: 49340 HEADER OPERATION: U/S guided core biopsy left [...] CHOL 213 mg/dL (Abnormal) Comments: <200 mg/dL Qzxepmpcu359-115 mg/dL Borderline>240 mg/dL High Risk 47-Mfk-795665:03 PARATHORMONE (49259) Comments: PATIENT NOT FASTINGPERFORMED BY: [facility]VoltsEC[facility] [id number] Information: G76687,2ND ORDER NO DRAW F EE PTH, Intact 23 pg/mL (Normal) Range: 15-65 27-Xpc-214187:02 TSH (THYROID STIMULATING Comments: PATIENT NOT FASTINGPERFORMED BY: [employer] LabWanna Migraterp Hgqrwv7364 NewzstandEC[facility] [id number] HORMONE) (47922) TSH 0.733 {uIU/mL} (Normal) Range: 0.450-4.500 :02 CALCIFEDIOL (91611) Comments: PATIENT NOT FASTINGPERFORMED BY: [facility] Lffdiq3260 [facility] [place] [id number] Vitamin D, 25-Hydroxy 28.9 ng/mL (Abnormal) Range: 30.0-100.0 Comments: Vitamin D deficiency has been defined by the [place] ofMedicine and an Endocrine Society practice guideline as alevel of serum 25-OH vitamin D less than 20 ng/mL (1,2).The Endocrine Society went on to further define vitamin Dinsufficiency as a level between 21 and 29 ng/mL (2).1. IOM ([place] of Medicine). 2010. Dietary reference intakes for calcium and D. [place]: The National Academies Press.2. Fernie FERGUSON, Saida OCONNOR, Esdras JIMENEZ, et al. Evaluation, treatment, and prevention of vitamin D deficiency: an Endocrine Society clinical practice guideline. JCEM. 2010; 96(7):1911-30. 30-Hnz-034045:02 METABOLIC PANEL, Comments: PATIENT NOT FASTINGPERFORMED BY: STEPH [facility] Jvilzx2964 [facility] [id number] Information: [id number],X02122 COMPREHENSIVE (39707) ALT (SGPT) 77 [iU]/L (Abnormal) Range: 0-32 [...] Glucose, Serum 110 mg/dL (Abnormal) Range: 65-99 04-Epb-538145:28 CBCD Comments: NO CHARGE REDRAW ANC 7.5 [...] 4.2-5.4 WBC 8.6 K/mm3 (Normal) Range: 4.4-11.0 86-Qva-138994:29 SED Comments: NO CHARGE REDRAW tSEDRATE 20 mm/h (Normal) Range: 0-30 13-Ayr-430336:42 Urinalysis, Office (75495) UA - LEUKOCYTE ESTERASE Negative (Normal) UA - NITRITE Negative (Normal) URINE UROBILINGN MARIE TIMED Normal mg/dL (Normal) UA - PROTEIN Negative mg/dL (Normal) UA - PH 7 (Normal) UA - BLOOD Negative (Normal) UA - SPECIFIC GRAVITY 1.020 (Normal) UA - KETONES Small mg/dL (Normal) UA - BILIRUBIN Negative (Normal) UA - GLUCOSE Negative (Normal) 9-Mgy-523082:38 Systemic Lupus Profile Comments: PATIENT NOT FASTINGPERFORMED BY: [facility]CoAdvanced [facility] Southern New MexicoEjeayn2534 [facility] [id number] Information: [id number] (76117) Anti-DNA (DS) Ab Qn 3 {IU/mL} (Normal) Range: 0-9 Comments: Negative <5 Equivocal 5 - 9 Positive >9 Sjogren's Anti-SS-B 0.2 {AI} (Normal) Range: 0.0-0.9 Sjogren's Anti-SS-A <0.2 {AI} (Normal) Range: 0.0-0.9 Antichromatin Antibodies <0.2 {AI} (Normal) Range: 0.0-0.9 RA Latex Turbid. 8.4 {IU/mL} (Normal) Range: 0.0-13.9 Iraheta Antibodies <0.2 {AI} (Normal) Range: 0.0-0.9 BATCH ATTENDANT Antibodies <0.2 {AI} (Normal) Range: 0.0-0.9 2-Ecr-383762:05 HAND MIN 3 VIEWS Radiology Report See [...] Signed:Tobin Sawant M.D.November 25 at 2:42:01 PM [id number] Signed GP/GP If you are the referring physician and would like to consult with theradiologist who provided this interpretation, please contact Amber calixto M.D. at [phone]. If this radiologist is unavailable, youwill be directed to another radiologist to assist. If you are a patient with a question regarding this report, pleasecontactyour referr ing physician directly. Professional Interpretation Provided By: [employer], Phone , These documents contain legally protected [...] documents. Dictated on 11/25/12 1442 by Loly HERRING ,Verascribed on 11/25/124 by ITS IMPORTSign by Tobin Sawant MD on 11/25/124 Sign by: Tobin Sawant MD [id number] HAND MIN 3 VIEWS Radiology Report See [...] swelling. Signed:Tobin Sawant M.D.November at 2:42:30 PM [id number] Signed GP/GP If you are the referring physician and would like to consult with theradiologist who provided this interpretation, please contact Tobin Sawant M.D. at [phone]. If this radiologist is unavailable, youwill be directed to another radiologist to assist. If you are a patient with a question regarding this report, pleasecontactyoanur daniel fry physician directly. Professional Interpretation Provided By: [employer], Phone , These documents contain legally protected [...] Dictated on 11/25/12 1442 by Judy harden MD,Ruranscribed on 11/25/12 1453 by ITS IMPORTSign by Tobin Sawant MD on 11/25/12 1454 Sign by: Tobin Sawant MD [id number] WRIST MIN 3 VIEWS Radiology See Note [...] Sawant M.D.November 25, 2012 at 2:43:33 PM [id number] Signed GP/GP If you are the referring physician and would like to co nsult with theradiologist who provided this interpretation, please contact Jaz Falk at [phone]. If this radiologist is unavailable, youwill be directed to another radiologist to nan ling. If you are a patient with a question regarding this report, pleasecontactyour referring physician directly. Professional Interpretation Provided By: [employer], Phone ,Fax These documents contain legally protected [...] 11/25/12 1456 Sign by: Tobin Sawant MD [id number] WRIST MIN 3 VIEWS Radiology See Note [...] Sawant M.D.November 25, 2012 at 2:42:31 PM [id number] Signed GP/GP If you are the referring physician and would like to con sult with theradiologist who provided this interpretation, please contact Jaz Falk at [phone]. If this radiologist is unavailable, youwill be directed to another radiologist to ed slaughter. If you are a patient with a question regarding this report, pleasecontactyour referring physician directly. Professional Interpretation Provided By: [employer], Phone , These documents contain legally protected [...] 11/25/12 1457 Sign by: Tobin Sawant MD 8-Iwt-572267:50 CCP ANTIBODY ([id number]) Comments: PATIENT NOT FASTINGPERFORMED BY: CB [facility] Snhrhk1671 [facility] [id number] BY: [facility] [address] [id number] CCP Antibodies IgG/IgA 21 {units} (Abnormal) Range: 0-19 Comments: Negative <20 Weak positive 20 - 39 Moderate positive 40 - 59 Strong positive >59 4-Fbh-482879:50 SED RATE ERYTHROCYTE Comments: PATIENT NOT FASTINGPERFORMED BY: CB [facility] Xdqgyd5203 [facility] [place] [id number] BY: [address] [id number] (34007) Sedimentation Rate-Westergren 2 mm/h (Normal) Range: 0-40 4-Zvf-561527:50 C-REACTIVE PROTEIN ([id number]) Comments: PATIENT NOT FASTINGPERFORMED BY: [facility] Eitrqi7065 [facility] [id number] BY: [address] [id number] C-Reactive Protein, Quant 1.6 mg/L (Normal) Range: 0.0-4.9 5-Hhm-195221:50 TSH (51306) Comments: PATIENT NOT FASTINGPERFORMED BY: [facility] Onzgzo6595 [facility] [id number] BY: [address] [id number] TSH 1.410 {uIU/mL} (Normal) Range: 0.450-4.500 5-Hil-565316:50 RHEUMATOID FACTOR-QUANT Comments: PATIENT NOT FASTINGPERFORMED BY: [facility]6370 [facility] [id number] BY: [address] [id number] ([id number]) RA Latex Turbid. 5.4 {IU/mL} (Normal) Range: 0.0-13.9 8-Cfv-425545:50 PATRICK (ANTINUCLEAR ANTIBODY) Comments: PATIENT NOT FASTINGPERFORMED BY: [facility] Eoknph8802 [facility] [id number] BY: [address] [id number] ([id number]) PATRICK Direct Positive (Abnormal) 5-Wuh-451994:50 CBC WITH MANUAL DIFF Comments: PATIENT NOT FASTINGPERFORMED BY: [facility] Oejhph5661 [facility] [id number] BY: [place] 325517 [facility] [id number] Inf ormation: [id number] ([id number]) Immature Grans (Abs) 0.0 {x10E3/uL} (Normal) Range: [...] 3.77-5.28 WBC 4.7 {x10E3/uL} (Normal) Range: 4.0-10.5 6-Fhx-105932:50 METABOLIC PANEL, Comments: PATIENT NOT FASTINGPERFORMED BY: [facility]Co[facility] CenterHfvxqa9509 [facility] [id number] BY: LabWanna MigrateLeslie [place] 877557 [facility] [id number] COMPREHENSIVE (14153) ALT (SGPT) 22 [iU]/L (Normal) Range: 0-32 [...] PANEL, COMPREHENSIVE Comments: PATIENT WAS FASTINGPERFORMED BY: STEPH [employer] Tbvppv8470 [facility] [id number] (36121) ALT (SGPT) 20 [iU]/L (Normal) Range: 0-40 [...] MANUAL DIFF Comments: PATIENT WAS FASTINGPERFORMED BY: [employer] Frdabl2500 [facility] [id number] Information: [id number] (34613) Baso (Absolute) 0.0 {x10E3/uL} (Normal) Range: 0.0-0.2 [...] 3.80-5.10 WBC 3.7 {x10E3/uL} (Abnormal) Range: 4.0-10.5 31-Jul-20099:18 LIPID PANEL (39046) Comments: PATIENT WAS FASTINGPERFORMED BY: LabCoChristopher [place] 9696870 [facility] [id number] LDL Cholesterol Calc 128 mg/dL (Abnormal) Range: [...] Report See Note (Normal) Comments: Exam Number: [id number] UNILATERAL LEFT RIBS Several views of the [...] Report See Note (Normal) Comments: Exam Number: [id number] DORSAL SPINE AP and lateral views were [...] unspecified laterality Planned Observations METABOLIC PANEL, COMPREHENSIVE (54977)Indication: Hyperlipidemia, mild On: :49 Request LIPOPROTEIN, BLD, BY NMR (52905)Indication: Hyperlipidemia, mild On: :49 Request HEPATIC FUNCTION PANEL (88885)Indication: Hyperlipidemia, mild On: :28 Request LIPOPROTEIN, BLD, BY NMR (64067)Indication: Hyperlipidemia, mild On: :28 Request CBC, Platelets & Auto Diff (20182)Indication: Headache, occipital On: :26 Request Comments: all labs stat C-Reactive Protein (63502)Indication: Headache, occipital On: : Request Sed Rate Erythrocyte (96770)Indication: Headache, occipital On: : Request Sed Rate Erythrocyte (58831)Indication: Headache, occipital On: :09 Request LIPID PANEL (14398)Indication: Osteoarthrosis, not specified whether generalized/localized, lower leg On: 5-Oqs-838830:11 Request Parathyroid Hormone-related Peptide (PTH-rP) (58161)Indication: Abnormal blood chemistry On: 98-Mtm-164883:02 Request METABOLIC PANEL, COMPREHENSIVE (70967)Indication: Swelling On: :15 Request Comments: Add to standing order to be done today CPK TOTAL & ISOENZYMES (71036)Indication: Elevated CPK On: 51-Raz-230850:14 Request Comments: repeat today add to standing labs C-Reactive Protein (74547)Indication: Elevated CPK On: 81-Itc-812077:14 Request Comments: include with standing labs today TSH (53243)Indication: Swelling On: 98-Oyq-168851:12 Request Comments: Add to current standing order for today only Print this for pt MICROALBUMIN URINE QUANT (18579)Indication: Swelling On: 88-Drm-904638:43 Request MICROALBUMIN: CREATININE RATIO (48018) AND (30833)Indication: Swelling On: :43 Request EXTRCTBL NUCLR ANTGEN EA (40208) test code 661356Ohynkopscs: Abnormal blood chemistry On: : Request ANTI-Sm (ANTI IRAHETA ANTIBODY) (12260) test code 683904Yapbbyjrxi: Abnormal blood chemistry On: Request ANTI-BATCH ATTENDANT (ANTI RIBONUCLEAR PROTEIN ANTIBODY) (54795) test code 079252Slqsupqqbu: Abnormal blood chemistry On: Request DNA ANTIBODY-NATV/DBL ST (20746) test code 987865Gyjqxisgbs: Abnormal blood chemistry On: Request URINALYSIS (56893)Indication: Malignant neoplasm of breast (female) On: :27 Request CBC (Auto) (32768)Indication: Malignant neoplasm of breast (female) On: :22 Request Metabolic Panel, Comprehensive (72155)Indication: Malignant neoplasm of breast (female) On: :22 Request Planned Procedures INJECTION, PROLIA (J0897)By: On: 24-Feb-2018 Intent Visit, Nurse Comments: [id number] syringer arm, SCMLONG Bone Density StudyBy: Dahiana On: 01-Feb-2018 Lorena Patel MD, MD, Dana M Comments: due after 03-10-18 INJECTION, PROLIA (J0897)By: On: 14-Jul-2017 Amanda Talbot MD, Lorena Talbot MD, Comments: lot: [id number]: 09/2019site/route: R arm/SQamt: prefilled syringeVIS signed when applicableBLU Waters INJECTION, PROLIA (J0897)By: On: 17-Dec-2016 Amanda Talbot MD, Lorena Talbot MD, Comments: Lot:[id number]:02/11Dose:60mlRoute:sub q Site:r armGiven By:JKMVIS signed Lorena Lewis Radiology - ChestBy: Dahiana On: 02-Jul-2016 Lorena Patel MD, MD, Dana M Comments: recheck approx. 4 weeks check before 08-03-16 follow up Radiology - Chest- PA and On: 02-Jul-2016 Intent LatBy: Lorena Talbot MD, MD, Dana M Inhaler Demo (37539)By: Dahiana On: 02-Jul-2016 Lorena Patel MD, MD, Dana M Aerosol Treatment (65637)By: On: 02-Jul-2016 Lorena Holbrook MD, MD, Dana M INJECTION, PROLIA (J0897)By: On: 12-Jun-2016 Lorena Holbrook MD, MD, Comments: lot: [id number]: 08/12site/route: R arm/SQamt: prefilled syringe 60mgVIS signed when applicableBLU Waters LE Arterial Exam - LowerBy: On: 02-Apr-2016 Intent Lorena Talbot MD, MD, Dana M Aerosol Treatment (05680)By: On: 04-Mar-2015 Pat Bright CNP RIGHT MAMMOGRAM (39924)By: On: 04-Mar-2015 Pat Bright CNP Breast Ultrasound - LeftBy: On: 01-Jan-2015 Pat Bright CNP Comments: call results to Nabil at [facility] LEFT MAMMOGRAM ([id number])By: Dewayne On: 01-Jan-2015 Pat Patel CNP Comments: call Agus Buchanan at [facility] with results Bone Density StudyBy: Dahiana On: 31-Jan-2014 Lorena Patel MD, MD, Dana M BILATERAL MAMMOGRAMS (56150)By: On: 31-Jan-2014 Lorena Holbrook MD, MD, Dana M Kenalog Injection, 10 mgm On: 05-Dec-2013 Intent (J3301)By: Lorena Talbot MD Comments: lot: [id number]: 04/09site/route: L and R knee/joint injamt: 1cc in each kneeVIS signed when applicablex8 Dahiana HERRING, Lorena Lewis Echo CompleteBy: Dewayne GARCIA, On: 11-Aug-2013 Intent Asuncion Eprescribed prescriptions On: 11-Aug-2013 Intent (G8553)By: Dewayne GARCIA, Pat Dowling Eprescribed prescriptions On: 18-Jul-2013 Intent (G8553)By: Lorena Talbot MD, MD, Dana M Eprescribed prescriptions On: 08-Jun-2013 Intent (G8553)By: Becky Bryan DO Wax CurettesBy: Randi THOMAS, On: 08-Jun-2013 Intent Becky Ear Irrigation (19859)By: On: 08-Jun-2013 Intent Becky Bryan DO Comments: small amt came out of both ears but still thin film on rim Radiology - Wrist - On: 25-Nov-2012 Intent BilateralBy: Becky Bryan DO Radiology - Hand - BilateralBy: On: 25-Nov-2012 Intent Becky Bryan DO IMMUNIZATION ADMIN ([id number])By: On: 04-May-2012 Intent Katerina Broderick Comments: Lot:[id number]:07-30-13Dose:prefilledRoute:IMSite:R armGiven By:ALYSSA COMPLETE ON THIS DATE IMMUNIZATION ADMIN ([id number])By: On: 09-Jun-2011 Intent Eneida Beth Comments: Lot:[id number]:01/30/13Amt:prefilledRoute:IMSite:right deltGiven By: KENNEDY Greene IMMUNIZATION ADMIN (59774)By: On: 11-May-2011 Intent Shavon Bunch LPN Comments: Lot #[id number]-01/1/13Site-right deltoidgiven by: Jeffrey Bunch LPN TDAP VACCINE >7 IM (91010)By: On: 04-May-2011 Intent Lorena Talbot MD, MD, Dana M IMMUNIZATION ADMIN (08018)By: On: 04-May-2011 Intent Lorena Talbot MD, MD, Lorena Lewis Kenalog Injection, 10 mgm On: 27-Jun-2010 Intent (J3301)By: Lorena Talbot MD, MD, Dana M Kenalog Injection, 10 mgm On: 27-Jun-2010 Intent (J3301)By: Lorena Talbot MD, MD, Dana M DXA, BONE DENSITY, AXIAL On: 14-Nov-2009 Intent SKELETON (63603)By: Dahiana HERRING, Comments: estrogen def, medication high risk Lorena Hopson MD Venous Doppler - LeftBy: On: 25-Sep-2009 Intent Lorena Talbot MD, MD, Comments: lower Lorena Lewis Ftnhzcdoj-Hnp-Esfl (66324)By: On: 31-May-2009 Intent Lorena Talbot MD, MD, Comments: pain along rib Lorena Lewis Radiology - Thoracic SpineBy: On: 31-May-2009 Intent Lorena Talbot MD, MD, Dana M PHYSICAL THERAPY EVALUATION On: 03-Apr-2008 Intent (97171)By: Dewayne GARCIA, Asuncion Radiology - ChestBy: Cimark TIRE INSPECTOR, On: 03-Apr-2008 Intent Asuncion Kenalog Injection, 10 [...] for Follow up acute care visit: In [place] and noted left arm red streak from [...] will be leaving wednesday for [facility]. had sinusitis month ag o. feel [...] (left). Note for Calf pain: drove to [place] and at [employer]. wearing fit flops. in - left knee [...] incident not at work (working out at [employer]) and has been occurring in an intermittent [...] Osteoarthritis (715.96), Sleep disorder (780.50), Obesity,unspecified (278.00), [facility] Comprehensive Internal Medicine Office Visit On: [...] and type alot and also restart at [facility] Diagnosis: Parasthesia (782.0) Comprehensive Internal Medicine [...]
--- OUTSIDE RECORDS SUMMARY | 2018-05-19 10:05 | XMS RPT_ITS | Continuity of Care Document ---
:1955 Author Organization [facility] Address [address] [place] [address] Phone Care Team Providers Name Role Phone Dahiana HERRING, Lorena Lewis Unavailable Trevor HERRING, Darline Lewis Unavailable Betzy HERRING, Jaxon Tee Unavailable Cricket Paz Unavailable Antonio Vang Unavailable Dr. Arsh Gimenez Unavailable Zaida Corbin LPN Unavailable Unavailable VINICIO Hillman Unavailable Unavailable Unavailable Unavailable Problems Name Dates Details Abnormal ankle brachial index (R68.89, 796.4) Status: Active Acute foot pain, right (M79.671, 729.5) Comments: had over corrected bunion and now think needs fusion. 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 nesbitt-- CPK can be 3000+ currently 1900 / inflammation responding to treatment Status: Active BMI 25.0-25.9,adult (Z68.25, V85.21) Status: Active Deliveries (Parity) Comments: 2 Status: Active Disordered sleep (G47.9, 780.50) Comments: using calm day and working stay away from [facility]. Status: Active Epigastric pain (R10.13, 789.06) Status: [...] (M19.90, 714.9) Comments: saw Dr. Fitzpatrick at [facility] told antisynthatase syndrome. 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 Status: Active Nonsmoker (Z78.9, V49.89) Status: Active Osteoarthrosis, not specified whether generalized/localized, lower leg (M17.9, 715.96) Status: Active Osteoporosis (M81.0, 733.00) Comments: on Boniva 6 months and not help, doing Prolia due May 2017 labs good. no Forteo with XRT Status: Active Positive PPD (R76.11, 795.51) Comments: see ID at [facility] in past Status: Active Pregnancies () Comments: 2 Status: Active Stress reaction (Renamed from Acute reaction to stress) (F43.0, 308.9) Comments: some issue with son. broke off with relationship had 2 years ago. some is winter. ding better. Status: Active Unspecified Diagnosis Status: Active Well woman exam (Renamed from Encounter for well woman exam) (Z01.419, V72.31) Comments: 06-25-17 [facility] Wellness exam: Mammogram 11-21-17, Bone density 11-15-16, PHQ-9=46CIT=28/28 hx of total hysterectomy no pap and told by Dr. phillips no pap. colonscopy 7-14 good but family history colon cancer. need prevnar 13 Status: Active Medications Name Dates Details AcetaZOLAMIDE 125 MG Oral Tablet uad Tablet 1 or 2 bid-tid as directed for 0 days Quantity: 25 {Tablet} Refills: 0 Ordered:25-Mar-2018 Rafy VINICIO Start : 25-Mar-2018 Active Comments:begin taking 1-2 days prior to ascent and continue for next 5 days during higher altitudeas needed Ativan 1 MG Oral Tablet 1 (one) Tablet take one 30 min before flying for 0 days Quantity: 10 {Tablet} Refills: 0 Ordered:24-Mar-2018 Lorena Talbot MD, MD, Dana M Start : 24-Mar-2018 Active Comments:ten AZATHIOPRINE, 100MG (Oral Tablet) 2 Tablet daily for 0 days Quantity: 30 {Tablet} Refills: 0 Ordered:01-Jan-2015 Carmen Holt LPN Start : 28-Nov-2013 Active Comments:per Dr. Fitzpatrick [place] 0.05 % External Cream 1 (one) Cream bid for 0 days Quantity: 1 {Tube} Refills: 0 Ordered:16-Apr-2016 Lorena Talbot MD, MD, Dana M Start : 16-Apr-2016 Active Hydrocodone-Acetaminophen 5-325 MG Oral Tablet 1 (one) Tablet every 6 hours prn for 0 days Quantity: 30 {Tablet} Refills: 0 Ordered:03-Apr-2016 Lorena Talbot MD, MD, Dana M Start : 03-Apr-2016 Active Comments:thirty Levaquin 500 MG Oral Tablet 1 (one) Tablet daily for 0 days Quantity: 7 {Tablet} Refills: 0 Ordered:25-Mar-2018 Lorena Talbot MD, MD, Dana M Start : 25-Mar-2018 Active OMEGA 3, 1000MG (Oral Capsule) qd (1000 [...] Ordered:02-Jul-2016 VINICIO Hillman Start : 02-Jul-2016 Active TraMADol HCl 50 MG Oral Tablet 1 (one) Tablet q 6 hours prn pain for 0 days Quantity: 30 {Tablet} Refills: 0 Ordered:24-Mar-2018 Lorena Talbot MD, MD, Dana M Start : 24-Mar-2018 Active Comments:thirtyDX:M17.9 Turmeric 450 MG Oral Capsule 1 (one) [...] 20 {Tablet} Refills: 0 Ordered:11-Aug-2013 Dewayne GARCIA Pat Dowling Start : 11-Aug-2013 End : 14-Aug-2013 Inactive Comments:ok for twenty pills but only taking for 3 days LIDODERM, 5% (External Patch) 1 for 0 days Refills: 0 Ordered:03-Apr-2008 Saud Marilee Start : 03-Apr-2008 End : 27-Jun-2008 Inactive [...] 20 {Tablet} Refills: 0 Ordered:11-Aug-2013 Dewayne GARCIA Pat Dowling Start : 11-Aug-2013 End : 14-Aug-2013 Inactive [...] days Quantity: 30 {Tablet} Refills: 0 Ordered:01-Jan-2015 Slarb Carmen BENAVIDES Start : 21-Jul-2013 End : 01-Jan-2015 Discontinued TAMOXIFEN CITRATE, 20MG (Oral Tablet) 1 QD for 0 days Refills: 0 Ordered:27-Jun-2008 Marilee Villavicencio End : 02-Sep-2007 Discontinued Allergies and Adverse Reactions Name Dates Details No Known Drug Allergies (Allergy) Status: Active Past Medical History Name Dates Details Abdominal pain (R10.9, 789.00) Status: Resolved as of 24-Mar-2018 Abnormal blood chemistry (R79.9, 790.6) Comments: pos [...] 2 weeks. Status: Inactive as of 22-Sep-2016 Cellulitis of arm (L03.119, 682.3) Comments: on omnicef 300mg bid x 10 days Status: Resolved as of 24-Mar-2018 Cerumen impaction (H61.20, 380.4) Status: Inactive as of 11-Jul-2015 Contact dermatitis due to poison farhana (L23.7, 692.6) Status: Inactive as of 23-Oct-2008 Cough (R05, 786.2) Comments: not in [place] here in [place]. some PND no reflux. Status: Resolved as of 24-Mar-2018 Elevated CPK (R74.8, 790.5) Comments: REPEAT today [...] (M17.10, 715.96) Comments[facility] [place] lateral left joint compartment Status: [...] (J18.9, 486) Status: Resolved as of 25-Jun-2017 Preop examination (Z01.818, V72.84) Status: Resolved as of 24-Mar-2018 Pre-operative general physical examination (Z01.818, V72.83) Status: Inactive as of 11-Jul-2015 Rash (R21, 782.1) Comments: around latera eye canthus. think contact dermatitis by look if vesicles like singles or pain. or if warm red hot then call Status: Inactive as of 22-Sep-2016 Screening mammogram, encounter for (Z12.31, V76.12) Status: Resolved as of 24-Mar-2018 Sinusitis (J32.9, 473.9) Status: Inactive as of 22-Sep-2016 Sinusitis, acute (J01.90, 461.9) Status: Inactive as of 11-Jul-2015 Swelling (R60.9, 782.3) Comments: equal both legs recently off of prednisonehas Status: Inactive as of 11-Jul-2015 Thrombophlebitis arm (I80.8, 451.84) Comments: she is [...] ultrasound and consider a different anabiotic Status: Resolved as of 24-Mar-2018 Tinnitus (H93.19, 388.30) Comments: ? related to [...] Unspecified Diagnosis Status: Inactive as of 10-Jan-2016 Upper respiratory disease (J39.9, 478.9) Comments: probably viral will return if no better in 7 days or sooner if develop new sx or get worse Status: Inactive as of 11-Jul-2015 WWV Status: Inactive as of 11-Jul-2015 Procedures Procedure Dates Details Appendectomy Completed Comments: 1961 Arthoscopic knee surgery left 1999 Completed bilateral foot [id number] Completed Carpal Tunnel Completed Comments: left 2010 Dr. Chandler Carpal Tunnel right wrist Completed Comments: Dr. Chandler 06-03-10 Colonoscopy Completed Comments: 11-06-13 Dr. Gimenez repeat in 10 years Hernia 1997 Completed Hysterectomy, Total Completed Comments: Dr. Mabry Lumpectomy Completed Comments: 06/2006- breast Tonsillectomy Completed Comments: 1959 Date Value Details 24-Mar-2018 Dexa Bone Density Study Result: Comments: See Note; NOTES: [facility] Imaging Services [address] [place] [address] Dexa Bone Density Study MR#: [id number] Acct: [id number] Name: SYLVIA RAMIREZ Rep #: [id number] : 1955 F 63 From: Tobin Sawant MD PCP: Lorena Talbot MD Status: REG CLI Study: Dexa Bone Density Study Date of Exam: 03/24/18 Exam# [id number] Ordering Dr: Lorena Talbot MD STUDY: D UAL ENERGY X-RAY ABSORPTIOMETRY / DXA REASON FOR EXAM: Female, 63 years old. The patient is postmenopausal. Loss of height. TECHNIQUE: Bone Mineral Density (BMD) measurements of lumbar spine and bilat eral hips were obtained. COMPARISON: Comparison is made with prior study dated March 10, 2016. FINDINGS: Lumbar Spine (L1-L4): g/cm2 (1.214) / T-score (0.4) / Z -score (1.8) Findings are suggestive of normal bone density with a low fracture risk. Left Femur Total: g/cm2 (0.788) / T-score (-1.7) / Z-score (-0.7) Left Femoral Neck: g/cm2 (0.727) / T-score (-2.2) / Z-score (-0.9) Right Femur Total: g/cm2 (0.791) / T-score (-1.7) / Z-score (-0.6) Right Femoral Neck: g/cm2 (0.728) / T-score (-2.2) / Z-score (0.9) The T-Scores on the most recent prior examination were: Lumbar Spine (L1-L4): There has been improvement of bone density since the previous examination. Left Femur Total: which represents an improvement of 2.1%. Right Femur Total: which represents a n improvement of 0.8%. BD/Dexa Bone Density Study IMPRESSION: The patient is considered osteopenic as outlined below according to World [place] Org anization (WHO) criteria with a moderate fracture risk. There has been improvement of bone density since the previous examination. Reference Information: The T-scor e is the number of standard deviations above or below the standard which is normal for young adults at their peak bone mineral density. The World Health Organization (WHO) interprets the T-scores as fol lows: Above -1 Normal bone density Between -1 and -2.5 Osteopenia Equal to / or below -2.5 Osteoporosis As a practical clinical guideline, osteopenia may be graded as follows: Mild -1 through -1.5 Mod erate -1.6 through -2.0 Severe -2.1 through -2.4 The Z-score is the number of standard deviations above or below age-matched controls. A Z-score of less than -1.5 would be considered abnormal. Referen gio: 1. NIH Osteoporosis and Related Bone Diseases http://www.osteo.org 2. International Society for Clinical Densitometry http://www.iscd.org 3. National Osteoporosis Foundation http://www.nof.org Kaylie ctronically Signed: Tobin Sawant MD at 12:33 EST Tel [phone], Service support , CC: Lorena Talbot MD Mask Inspector: Signed 24-Mar-2018 SCREENING MAMM (CAD), BILAT Result: Comments: See Note; NOTES: [facility] Imaging Services [address] [place] [address] SCREENING MAMM (CAD), BILAT MR#: [id number] Acct: [id number] Name: SYLVIA RAMIREZ Rep #: [id number] : 1955 F 63 From: Tobin Sawant MD PCP: Lorena Talbot MD Status: REG CLI Study: SCREENING MAMM (CAD), BILAT Date of Exam: 03/24/18 Exam# [id number] Ordering Dr: Lorena Talbot MD MAMMOGRAPHY - BILATERAL SCREENING REASON FOR EXAM: Female, 63 years old. Routine annual screening examination. PERTINENT HISTORY: Personal history of breast cancer. Prior left lumpectomy with radiatio n therapy. Sr. With breast cancer. Mother with breast cancer. Aunt with breast cancer. TECHNIQUE: Digital bilateral breast shanice (3D mammographic acquisition) in the CC and MLO projections. 2-D mediolat eral oblique (MLO) and craniocaudad (CC) views of both breasts were obtained. CAD: Full Field Digital Mammography with Computer Added Detection was performed. COMPARISON: Comparison is made with prior examination dated March 16, 2017 and March 10, 2016. FINDINGS: Breast Composition: The breasts are heterogeneously dense, which may obscure small masses. Ther e are no dominant masses or suspicious calcifications. Once again, there is evidence of a focal area of architectural distortion in the inferior midportion of the left breast in keeping with prior lumpe ctomy and radiation therapy. Stable postoperative scarring and focal calcification. A tissue clip marker is seen in the deep slightly lateral portion of the left breast. Stable skin thickening of the le ft breast. No other significant abnormalities are identified. There has been no significant change since the prior study. BI/SCREENING MAMM (CAD ), BILAT IMPRESSION: Stable bilateral screening mammogram. Yearly follow-up mammogram recommended. (A) ASSESSMENT CATEGORY: BIRADS Category 2: Benign. A letter rega rding these results will be sent to the patient by the facility within 30 days. Approximately 10% of breast cancers are not detected by mammography. A normal mammogram should not delay biopsy of a clin ically suspicious abnormality. [id number] Electronically Signed: Tobin Sawant MD at 11:21 EST Tel [phone], Service support , CC: Lorena Talbot MD Mask Inspector: Signed 30-Nov-2017 Emergency Department Summary Result: Comments: See Note; NOTES: [facility] Medical Records Department [address] [place] [address] Emergency Department Summary 11/30/17 0934 MR#: [id number] Acct: [id number] Name: SYLVIA RAMIREZ Rep #: [id number] : 1955 62 From: Eliezer Ojeda DO PCP: Lorena Talbot MD Status: REG ER - ER Visit Summary Date of Service: 11/30/17 Chief Complaint: [] History of Present Il lness: The patient is a 62 F [] Physical Examination: [] Test Results: [] Emergency Department Course and Treatment: [] Treatment Plan: [] Disposition: [] Impression: [] This note was generated with Hatchtech dictation software. It may contain incorrect words, spelling, and punctuation that were not noted in review of the chart prior to signing ED Disposition - Plan for ED Patient: Dispositio n: Home or Assisted Living Chief Complaint: Abd Pain Diagnosis: Right upper quadrant abdominal pain of unknown etiology Instructions: ED Abdominal Pain Unkn Cause Prescriptions: Hydrocodone Bitart/Apap 5-325 [Chester 5MG-325MG] 1 tab PO Q6H PRN PRN 3 Days #10 tab PRN Reason: Pain Omeprazole [Prilosec] 20 mg PO DAILY #30 cap Referrals: Lorena Talbot MD [Primary Care Provider] - What to do if you have Problems For any increased pain, shortness of breath, bleeding, nausea or vomiting, chest pain, or any unexpected problems, contact your Primary Care Provider. Call [facility] ([phone]) or report to the closest Emergency Room. Call 911 if necessary. 11/30/17 0937 <Electronically signed by Eliezer Ojeda DO> Date Eliezer sanchez DO Cosigner Signature (If Indicated): Date CC: Lorena Talbot MD 30-Nov-2017 Emergency Department Summary Result: Comments: See Note; NOTES: [facility] Medical Records Department [address] [place] [address] Emergency Department Summary 11/30/17 0417 MR#: [id number] Acct: [id number] Name: SYLVIA RAMIREZ Rep #: [id number] : 1955 62 From: Bladimir Parikh MD PCP: Lorena Talbot MD Status: REG ER ADDENDUM by Eliezer Ojeda DO on 11/30/17 at 0934 Care of the patient was turned over to me a t 7 AM. Right upper quadrant ultrasound was obtained and was normal. Patient was given a prescription for Prilosec and a short course of Chester. Patient was instructed to follow-up with her [...] given opti on of staying until the agency service coordinator presents in the morning for ultrasound or [...] and vomiting This note was generated with Hatchtech dictation software. It may contain incorrect words, [...] your Primary Care Provider. Call [facility] ([phone]) or report to the closest Emerge ncy Room. Call 911 if necessary. 11/30/17 0702 <Electronically signed by Bladimir Parikh MD> Date Bladimir Parikh MD Cosigner Signature (If Ind icated): Date CC: Lorena Talbot MD 30-Nov-2017 Emergency Department Summary Result: Comments: See Note; NOTES: [facility] Medical Records Department [address] [place] [address] Emergency Department Summary 11/30/17 0417 MR#: [id number] Acct: [id number] Name: SYLVIA RAMIREZ Rep #: [id number] : 1955 62 From: Bladimir Parikh MD [...] or night sweats. She denies any ocular, loan auditor y or visual symptoms. She denies [...] was given option of staying until the agency service coordinator presents in the morning for ultrasound or [...] and vomiting This note was generated with Loog[employer]ation s oftware. It may contain incorrect words, [...] your Primary Care Provider. Call [facility] ([phone]) or report to the closest Emergency Room. Call 911 if necessary. 11/30/17 0702 <Electronically signed by Bladimir Parikh MD&#62 ; Date Bladimir Parikh MD Cosigner Signature (If Indicated): Date CC: Lorena Talbot MD 30-Nov-2017 Gallbladder Result: Comments: See Note; NOTES: [facility] Imaging Services [address] [place] [address] Gallbladder MR#: [id number] Acct: [id number] Name: SYLVIA RAMIREZ Rep #: [id number] : 1 05/18/1954 F 62 From: Joseph Tony DO PCP: Lorena Talbot MD Status: REG ER Study: Gallbladder Date of Exam: 11/30/17 Exam# [id number] Ordering Dr: Bladimir Parikh MD STUDY: ABDOMINAL [...] CC: Lorena Talbot MD; Bladimir Parikh MD Mask Inspector: Signed 16-Mar-2017 SCREENING MAMM (CAD), BILAT Result: Comments: See Note; NOTES: [facility] Imaging Services [address] [place] [address] SCREENING MAMM (CAD), BILAT MR#: [id number] Acct: [id number] Name: ALICIA RAMIREZCALLUM Kelley Rep #: [id number] : 1955 F 61 From: Tobin Sawant MD PCP: Lorena Talbot MD Status: REG CLI Study: SCREENING MAMM (CAD), BILAT Date of Exam: 03/16/17 Exam# [id number] Ordering Dr: Yomi Pérez AMMOGRAPHY - BILATERAL [...] delay biopsy of a clinically suspicious abnormality. [id number] Electronically Signed: Tobin Sawant MD at 10:39 EST Tel [phone], Service support , CC: Lorena Talbot MD; Yomi Pérez DO Mask Inspector: Signed 02-Jul-2016 Chest PA and Lateral Result: Comments: See Note; NOTES: [facility] Imaging Services [address] [place] [address] Verdana 4d Chest PA and Lateral MR#: [id number] Acct: [id number] Name: SYLVIA RAMIREZ Rep #: [id number] : 1955 F 61 From: Yecenia Khan MD PCP: Lorena Talbot MD Status: REG CLI Study: Chest PA and Lateral Date of Exam: 07/02/16 Exam# [id number] Ordering Dr: Lorena Talbot MD STUDY: X-RAY [...] MD at 15:38 EST , Service support [phone], CC: Lorena Talbot MD Mask Inspector: Signed 10-Apr-2016 Vascular Test/LEAS/UEAS Result: Comments: See Note; NOTES: [facility] Cardiovascular Services [address] [place] [address] Verdana 4d Lower Ext Art Exam w/o Exercis MR#: [id number] Acct: [id number] Name: SYLVIA GUADARRAMA Rep #: [id number] : 1955 61 From: Jim Martin MD [...] bilaterally. Jim Vidal MD T: NTS JOB: [id number] 04/10/16 1306 <Electronically signed by Jim Martin MD> Date Jim Martin MD CC: Lorena Talbot MD Date Dictated: 04/08/161722 Date Transcribed: 04/08/161722 Mask Inspector: Signed 10-Mar-2016 Bilat Scrn Digital AND CAD Result: Comments: See Note; NOTES: [facility] Imaging Services [address] [place] [address] Verdana 4d Bilat Scrn Digital AND CAD MR#: [id number] Acct: [id number] Name: SYLVIA RAMIREZ Rep #: [id number] : 1955 F 60 From: Tobin Sawant MD PCP: Lorena Talbot MD Status: REG CLI Study: Bilat Scrn Digital AND CAD Date of Exam: 03/10/16 Exam# [id number] Ordering Dr: Jose Pérez DO MAMMOGRAPHY - BILATERAL SCREENING REASON FOR [...] [facility] facility within 30 days. Approximately 10% of breast cancers are not detected by mammography. A normal mammogram should not delay biopsy of a clinically suspicious abnormality. [id number] Elect ronically Signed: Tobin Sawant MD at 11:03 EST Tel [phone], Service support [phone], CC: Lorena Talbot MD; Yomi Pérez DO Mask Inspector: Signed 10-Mar-2016 Dexa Bone Density Study (HP) Result: Comments: See Note; NOTES: [facility] Imaging Services [address] [place] [address] Verdana 4d Dexa Bone Density Study () MR#: [id number] Acct: [id number] Name: MARCELA RAMIREZ Rep #: [id number] : 1955 F 60 From: Tobin Sawant MD PCP: Lorena Talbot MD Status: REG CLI Study: Dexa Bone Density Study (HP) Date of Exam: 03/10/16 Exam# [id number] Ordering Dr: KODY NESBITT STUDY: DUAL ENERGY [...] Tobin Sawant MD at 10:18 EST Tel [phone], Service support [phone], CC: Lorena Talbot MD; KODY NESBITT Mask Inspector: Signed 07-Jul-2015 History and Physical Exam Result: Comments: See Note; NOTES: [facility] Medical Records Department [address] [place] [address] History and Physical 07/07/15 1809 MR#: [id number] Acct: [id number] Name: SYLVIA RAMIREZ Rep #: [id number] : 1955 60 From: Lucy Figueroa MD [...] mentioned above presented to the emergency [facility] of left upper extremity soreness, pain, [...] [Vitamin 2,000 unit PO DAILY 07/07/15 D] Terra [place]ta-3 Fatty Acids/Fish Oil 2 each PO DAILY 07/07/15 [Terra [place] 3 1,000 mg Softgel] Turmeric [Turmeric Root] [...] 92.3 H Lymph % (Auto) 4.1 L [place] % (Auto) 2.2 Eos % (Auto) 1.0 [...] on prednisone and azathioprine. Plan: Admit to [facility] floor, IV fluids for hydration, blood cultur [...] Subcu Lovenox. This note was generated with Hatchtech dictation software. It may contain incorrect words, spelling, and punct uation that were not noted in checking the note before signing. 07/07/151817 <Electronically signed by Lucy Figueroa MD> Date Lucy Figueroa MD Cosigner Signature (if applicable): Date CC: Lorena Talbot MD; Lucy Figueroa Signed 18-Apr-2015 Operative Report Result: Comments: See Note; NOTES: [facility] Medical Records Department [address] [place] [address] Operative Report MR#: [id number] Acct: [id number] Name: KIRSTEN RAMIREZ Nitesh Rep #: [id number] : 1955 60 From: Galileo Quinones DPM PCP: Lorena Talbot MD Status: [facility] DATE OF SERVICE: DATE OF SURGERY: [...] needed. Galileo Quinones DPM T: NTS JOB: [id number] 04/18/15 0757 <Electronic ally signed by Galileo Quinones DPM> Date Galileo Quinones DPM Cosigner Signature (If Indicated): Date CC: Lorena Talbot MD; Galileo Quinones DPM Date Dictated: 04/12/151647 Date Transcribed: 04/12/151647 Mask Inspector: Signed 12-Apr-2015 Discharge Instruction Result: Comments: See Note; NOTES: [facility] Medical Records Department [address] [place] [address] Instructions for Home/Discharge Instructions 04/12/15 1639 MR#: [id number] Acct: [id number] Name: ALICIA RAMIREZETTE Rep #: [id number] : 1955 60 From: Galileo Quinones DPM PCP: Lorena Talbot MD Status: REG [facility] Discharge Diet: Light diet - advance as [...] 1 wee k or sooner if needed 04/12/15 1641 <Electronically signed by Galileo Quinones DPM> Date Galileo Quinones DPM CC: Lorena Talbot MD 04-Apr-2015 Chest PA and Lateral Result: Comments: See Note; NOTES: [facility] Imaging Services [address] [place] [address] Verdana 4d Chest PA and Lateral MR#: [id number] Acct: [id number] Name: SYLVIA RAMIREZ Rep #: [id number] : 1955 F 60 From: Jose Fagan MD PCP: Lorena Talbot MD Status: PRE SDC Study: Chest PA and Lateral Date of Exam: 04/04/15 Exam# [id number] Ordering Dr: Virgen Quinones DPM STUDY: X-RAY [...] FACR at 13:58 EST , Service support [phone], RAD/Chest PA and Lateral IMPRESSION: No signs of acute cardiopulmonary disease Electronically Signed: Jose Fagan MD, FACR at 13:58 EST , Service support [phone], CC: Lorena Talbot MD; Galileo Quinones DPM Mask Inspector: Signed 29-Mar-2015 EKG (98200) Comments: nsr no acute chg poor R wave progression Result: [MEASUREMENTS ANALYSIS] Date of Test: 03/29/2015 13:38:32; Heart Rate: 73; MT Interval: 180; QRS: 88; QT Interval: 380; Corrected QT Interval (QTc): 402; P Wave Arp: 33; QRS Wave Arp: 30; T Wave Arp: 29; Blood Pressure: 120/78 [ECG DIAGNOSTIC STATEMENTS] Date of Test: 03/29/2015 13:38:32; Summary: Sinus Rhythm WITHIN NORMAL LIMITS 28-Mar-2015 Inital Evaluation - PT Result: Comments: See Note; NOTES: [facility] [address] [place] [address]. [address] [place] [address] Fax REHABILITATION SE RVICES INITIAL EVALUATION MR#: [id number] Acct: [id number] Name: SYLVIA RAMIREZ Rep #: [id number] : 1955 60 From: Gurdeep Carson Referring DrMontrell: Galileo Quinones DPM Status: REG RCR Ins urance: [facility] Date: Patient's Visit Information SYLVIA RAMIREZ is [...] is limited with her ex's here at [facility] secondary to pain and limited ROM. Pt [...] to be FAXED BACK to us at [phone] for Medicare purposes. Please let me know if there are questions or concerns regarding this plan of care. Physician Signature: Date: <Electronically signed by Gurdeep Carson > 03/28/15 1140 CC: Lorena Talbot MD; Galileo Quinones DPM [facility] Jeanne d For Medicare only, by signing this I certify the plan of care. Physicians Signature Date 08-Mar-2015 Unilat Rt Scrn Digital AND CAD Result: Comments: See Note; NOTES: [facility] Imaging Services [address] [place] [address] Verdana 4d Unilat Rt Scrn Digital AND CAD MR#: [id number] Acct: [id number] Na me: LEATHAAllieSYLVIA Rep #: [id number] : 1955 F 59 From: Tobin Sawant MD PCP: Lorena Talbot MD Status: REG CLI Study: Unilat Rt Scrn Digital AND CAD Date of Exam: 03/08/15 Exam# [id number] Ordering Dr: Pat Buchanan MAMMOGRAPHY - UNILATERAL [...] delay biopsy of a clinically suspicious abnormality. [id number] Electronically Signed: Tobin Sawant MD 201 09/03/12 at 11:11 EST Tel [phone], Service support [phone], CC: Pat Buchanan; Lorena Talbot MD Mask Inspector: Signed 04-Mar-2015 Lower Ext/No Jt/w/o Result: Comments: See Note; NOTES: [facility] Imaging Services [address] [place] [address] Verdana 4d Lower Ext/No Jt/w/o MR#: [id number] Acct: [id number] Name: Cirilo RAMIREZ Rep #: [id number] : 1955 F 59 From: Jose Fagan MD PCP: Lorena Talbot MD Status: REG CLI Study: Lower Ext/No Jt/w/o Date of Exam: 03/04/15 Exam# [id number] Ordering Dr: Ward Quinones DPM STUDY: MRI [...] at 10:47 EST Tel , Service support [phone], CC: Lorena Talbot MD; Galileo Quinones DPM Mask Inspector: Signed 15-Jan-2015 Breast Limited Unilateral Result: Comments: See Note; NOTES: [facility] Imaging Services [address] [place] [address] Ultrasound Report MR#: [id number] Acct: [id number] Name: SYLVIA RAMIREZ Rep #: [id number] : 1955 F 59 From: Tobin Sawant MD PCP: Lorena Talbot MD Status: REG CLI Study: Breast Limited Unilateral Date of Exam: 01/15/15 Exam# [id number] Ordering Dr: Pat Buchanan STUDY : ULTRASOUND [...] Tobin Sawant MD at 13:27 EDT Tel [phone], Service support [phone], CC: Pat Buchanan ; Lorena Talbot MD Mask Inspector: Signed 01-Jan-2015 Breast Limited Unilateral Result: Comments: See Note; NOTES: [facility] Imaging Services [address] [place] [address] Ultrasound Report MR#: [id number] Acct: [id number] Name: SYLVIA RAMIREZ Rep #: [id number] : 1955 F 59 From: Frantz Rojas MD PCP: Lorena Talbot MD Status: REG CLI Study: Breast Limited Unilateral Date of Exam: 01/01/15 Exam# [id number] Ordering Dr: Pat Buchanan STUDY: ULT RASOUND [...] at 15:39 EDT Tel , Service support [phone], CC: Pat Buchanan; Lorena Talbot MD Mask Inspector: Signed 01-Jan-2015 Shadow Puppet Diag Digital AND CAD Result: Comments: See Note; NOTES: [facility] Imaging Services [address] [place] [address] Breast Imaging Report MR#: [id number] Acct: [id number] Name: SYLVIA RAMIREZ Rep #: [id number] : 1955 F 59 From: Frantz Rojas MD PCP: Lorena Talbot MD Status: REG CLI Study: Unilat Lt Diag Digital AND CAD Date of Exam: 01/01/15 Exam# [id number] Ordering Dr: Pat Buchanan AMMOGRAPHY - UNILATERAL DIAGNOSTIC: LEFT BREAST REASON FOR EXAM: Female, 59 years old. Left breast pain PERTINENT HISTORY: LEFT BREAST PAIN- FM HX- MOTHER @ 66, SISTER @ 49, MAT GMA 70'S. 2 MAT AUN TS 50'S. LT LUMPECTOMY 2007 WOTH RAD [place]. BILAT REDUCTION 2010 T [...] t 15:34 EDT Tel , Service support [phone], CC: Pat Buchanan; Lorena Talbot MD Mask Inspector: Signed 21-Feb-2014 Bilat Scrn Digital & CAD Result: Comments: See Note; NOTES: [facility] Imaging Services [address] [place] [address] Breast Imaging Report MR#: [id number] Acct: [id number] Name: SYLVIA RAMIREZ Rep #: [id number] : 1955 F 58 From: Tobin Sawant MD PCP: Lorena Talbot MD Status: REG CLI Exam# [id number] Ordering Dr: Lorena Talbot MD MAMMOGRAPHY - [...] MD 201 08/03/28 at 9:41 EDT Tel [phone], Service support [phone], CC: Lorena Talbot MD Mask Inspector: Signed 21-Feb-2014 Dexa Bone Density Study ([facility]) Result: Comments: See Note; NOTES: [facility] Imaging Services [address] [place] [address] Bone Density Report MR#: [id number] Acct: [id number] Name: SYLVIA RAMIREZ Rep #: [id number] : 1955 F 58 From: Tobin Sawant MD PCP: Lorena Talbot MD Status: REG CLI Study: Dexa Bone Density Study ([facility]) Date of Exam: 02/21/14 Exam# [id number] Ordering Dr: Lorena Talbot MD STUDY: DUAL [...] Tobin Sawant MD at 12:35 EDT Tel [phone], Service support [phone], CC: Lorena Talbot MD Mask Inspector: Signed 08-Feb-2014 PT Discharge Summary Result: Comments: See Note; NOTES: [facility] [address] [place] [address]. [address] [place], [place] [address] Fax REHABILITATION SERVICES DISCHARGE SUMMARY MR#: [id number] Acct: [id number] Name: SYLVIA RAMIREZ Rep #: [id number] : 1955 58 From: Karrie Chris Referring : Haile Aguilera DO Status: REG RCR Eval Date: Disch rge Date: DATE OF SERVICE: Date of initial [...] it is appropriate she be discharged from [facility] and continue independent home exercise progra m. The patient was encouraged to call if she does have any questions or concerns. Karrie Chris DPT T: KRISHAN JOB: [id number] <Electronically signed by Karrie Chris > 02/08/14 0705 CC: Signed 02-Jan-2014 Inital Evaluation - PT Result: Comments: See Note; NOTES: [facility] [address] [place] [address]. [address] [place] [phone] Fax REHABILITATION SERVICES INITIAL EVALUATION MR#: [id number] Acct: [id number] Name: SYLVIA RAMIREZ Rep #: [id number] : 1955 58 From: Karrie Chris Referring : Haile Aguilera DO Status: REG RCR [facility] Eval Date: DATE OF SERVICE: 01/01/2014 [...] On Wednesday she is leaving for the [employer] and will be gone for approximately 2 [...] with decreased pain. Karrie Chris DPT T: KRISHAN JOB: [id number] <Electronically signed by Karrie Chris > 01/02/14 [...] Situation Comments: single lives alone, annie olivares [phone] dtr Status: Active No Drug Use Status: [...] Value Details :49 CBC W/Diff, Automated Comments: [facility] [address] [place], [place], [id number] SMEAR COMMENT (Normal) Comments: LYMPHOPENIA NOTED Absolute [...] 4.2-5.4 WBC 6.0 K/mm3 (Normal) Range: 4.4-11.0 34-Hdp-219442:49 CPK Total, Creatine Kinase Comments: [facility] [address] [place], [address] CPK TOTAL 1954 U/L (Abnormal) Range: 26-192 01-Lya-346590:49 Liver Profile Comments: [facility] [address] [facility] [place], [address] D BILI 0.14 mg/dL (Normal) Range: 0.00-0.30 T BILI 0.60 mg/dL (Normal) Range: 0.20-1.00 ALT 92 U/L (Abnormal) Range: 13-56 ALK P 61 U/L (Normal) Range: 45-117 AST 76 U/L (Abnormal) Range: 15-37 GLOB 3.7 g/dL (Normal) Range: 2.2-4.2 ALB 3.6 g/dL (Normal) Range: 3.2-5.0 T PROT 7.3 g/dL (Normal) Range: 6.4-8.2 40-Upr-798853:49 Serum Creatinine AND GFR Comments: [facility] [address] [place], [place], [address] EST GFR - AA 137 mL/min (Normal) Comments: GFR Calc EST GFR 113 mL/min (Normal) Comments: Non- GFR Calc CREAT,SERUM 0.57 mg/dL (Normal) Range: 0.55-1.02 Comments: The validity of the calculated GFR AND GFRAA in patients over70 years has not been determined. Clinical correlation isessential. 88-Mcb-276039:35 Methymalonic Acid, Serum Comments: PATIENT NOT FASTINGPERFORMED BY: [employer] [id number] BY: [employer] [id number] ([address]) Disclaimer: SPR (Normal) Comments: This test was developed and its performance characteristicsdetermined by [employer]. It has not been cleared or approvedby the Food and Drug Administration. Methylmalonic Acid, Serum 82 nmol/L (Normal) Range: 0-378 42-Yob-552320:35 Vitamin B-12 Comments: PATIENT NOT FASTINGPERFORMED BY: [employer] [id number] BY: [employer] [id number] (cyanocobalamin) (68103) Vitamin B12 852 pg/mL (Normal) Range: 232-1245 82-Clp-543561:35 HELICOBACTER PYLORI Comments: PATIENT NOT FASTINGPERFORMED BY: [employer] [id number] BY: [facility] Hospital[facility] AssociatesAmanda [place] [address] [facility] [id number] ANTIBODY (86059) H. pylori, IgG Abs 0.17 {Index_Value} (Normal) Range: 0.00-0.79 Comments: Negative <0.80 Equivocal 0.80 - 0.89 Positive >0.89 64-Bkj-541986:35 Creatine Kinase Total Comments: PATIENT NOT FASTINGPERFORMED BY: [employer] [id number] BY: [facility] [id number] ([address]) Creatine Kinase,Total 425 U/L (Abnormal) Range: 24-173 36-Khu-340240:35 C-Reactive Protein Comments: PATIENT NOT FASTINGPERFORMED BY: [employer] [id number] BY: [employer] [id number] ([address]) C-Reactive Protein, Quant 6.0 mg/L (Abnormal) Range: 0.0-4.9 30-Nov-20172:50 Basic Metabolic Profile (BMP) Comments: [facility] [address] [place], [address] GAP 10 (Normal) Range: 5-15 CO2 26.0 [...] A.D.A. criteria.Please note revised GLUCOSE reference range oxlrjiwar76/02/2018. 30-Nov-20172:50 CBC W/Diff, Automated Comments: [facility] [address] [place], [place], [address] SMEAR COMMENT SCANNED (Normal) Absolute Lymph 0.21 [...] K/mm3 (Abnormal) Range: 4.4-11.0 :50 Lipase Comments: [facility] [address] [place], [place], [address] LIPASE 171 U/L (Normal) Range: 73-393 30-Nov-20172:50 Liver Profile Comments: [facility] [address] [place], [place], [address] D BILI 0.27 mg/dL (Normal) Range: 0.00-0.30 T BILI 1.10 mg/dL (Abnormal) Range: 0.20-1.00 ALT 36 U/L (Normal) Range: 13-56 ALK P 46 U/L (Normal) Range: 45-117 AST 32 U/L (Normal) Range: 15-37 GLOB 3.9 g/dL (Normal) Range: 2.2-4.2 ALB 3.6 g/dL (Normal) Range: 3.2-5.0 T PROT 7.5 g/dL (Normal) Range: 6.4-8.2 48-Xly-167440:27 CBC-Complete Blood Cnt No Diff Comments: [facility] [address] [place], [place], [address] MPV 10.2 fL (Normal) Range: 6.2-12.0 PLT [...] 4.2-5.4 WBC 4.0 K/mm3 (Abnormal) Range: 4.4-11.0 09-Uri-943449:27 CPK Total, Creatine Kinase Comments: [facility] [address] [place], [place], [address] CPK TOTAL 577 U/L (Abnormal) Range: 26-192 09-Won-932843:27 Liver Profile Comments: [facility] [address] [place], [place], [address] D BILI 0.16 mg/dL (Normal) Range: 0.00-0.30 T BILI 0.90 mg/dL (Normal) Range: 0.20-1.00 ALT 36 U/L (Normal) Range: 13-56 ALK P 43 U/L (Abnormal) Range: 45-117 AST 33 U/L (Normal) Range: 15-37 GLOB 3.7 g/dL (Normal) Range: 2.2-4.2 ALB 3.8 g/dL (Normal) Range: 3.2-5.0 T PROT 7.5 g/dL (Normal) Range: 6.4-8.2 36-Zhi-430110:27 Serum Creatinine AND GFR Comments: [facility] [address] [place], [place], [address] EST GFR - AA 163 mL/min (Normal) Comments: GFR Calc EST GFR 135 mL/min (Normal) Comments: Non- GFR Calc CREAT,SERUM 0.49 mg/dL (Abnormal) Range: 0.55-1.02 Comments: The validity of the calculated GFR AND GFRAA in patients over70 years has not been determined. Clinical correlation isessential. 27-Tpf-201658:23 CBC W/Diff, Automated Comments: [facility] [address] [place], [place], [address] BASO STIP RARE (Normal) PLT EST ADEQUATE [...] 4.2-5.4 WBC 4.2 K/mm3 (Abnormal) Range: 4.4-11.0 21-Tjb-60324:34 CBC-Complete Blood Cnt No Diff Comments: [facility] [address] [place], [place], [address](176) MPV 10.1 fL (Normal) Range: 6.2-12.0 PLT [...] 4.4-11.0 :34 CPK Total, Creatine Kinase Comments: [facility] [address] [place], [place], [address] CPK TOTAL 909 U/L (Abnormal) Range: 26-192 :34 Liver Profile Comments: [facility] [address] [place], [place], [address] D BILI 0.16 mg/dL (Normal) Range: 0.00-0.30 T BILI 0.70 mg/dL (Normal) Range: 0.20-1.00 ALT 49 U/L (Normal) Range: 13-56 ALK P 52 U/L (Normal) Range: 45-117 AST 44 U/L (Abnormal) Range: 15-37 GLOB 3.8 g/dL (Normal) Range: 2.2-4.2 ALB 3.5 g/dL (Normal) Range: 3.2-5.0 T PROT 7.3 g/dL (Normal) Range: 6.4-8.2 :34 Serum Creatinine AND GFR Comments: [facility] [address] [place], [place], [address] EST GFR - AA 192 mL/min (Normal) [...] CORE,TOT Negative (Normal) Comments: Performed at: - [facility] [id number] Director: Arsh Cuellar PhD, Phone: [phone] 75-Gos-21810:23 Hepatitis C Antibodies Comments: [facility] Patient F[facility]? [facility] (refer to report for specific site)refer to report for address and phone number HEP C AB 0.1 {s/co_ratio} (Normal) Range: 0.0-0.9 Comments: Negative: < 0.8 Indeterminate: 0.8 - 0.9 Positive: > 0.9 The CDC recommends that a positive HCV antibody result be followed up with a HCV Nucleic Acid Amplification test (883931). :23 Immunoglobulins G/A/M Comments: Is Patient Fasting? [facility] (refer to report for specific site)refer to report for address and phone number IMMUNOGL M 202 mg/dL (Normal) Range: 26-217 IMMUNO A 165 mg/dL (Normal) Range: 87-352 IMMUNO G 1092 mg/dL (Normal) Range: 700-1600 47-Vfi-907350:18 CBC-Complete Blood Cnt No Diff Comments: [facility] [address] [place], [place], [address] MPV 11.1 fL (Normal) Range: 6.2-12.0 PLT [...] 4.2-5.4 WBC 4.9 K/mm3 (Normal) Range: 4.4-11.0 11-Ifv-033812:18 Liver Profile Comments: [facility] [address] [place], [place], [address] D BILI 0.13 mg/dL (Normal) Range: 0.00-0.30 T BILI 0.60 mg/dL (Normal) Range: 0.20-1.00 ALT 56 U/L (Normal) Range: 13-56 Comments: Please note revised ALT reference range innnkalke35/28/2018. ALK P 49 U/L (Normal) Range: 45-117 AST 57 U/L (Abnormal) Range: 15-37 GLOB 3.6 g/dL (Normal) Range: 2.2-4.2 ALB 3.6 g/dL (Normal) Range: 3.2-5.0 T PROT 7.2 g/dL (Normal) Range: 6.4-8.2 48-Cmj-354829:18 Serum Creatinine AND GFR Comments: [facility] [address] [place], [place], [address] EST GFR - AA 164 mL/min (Normal) Comments: GFR Calc EST GFR 135 mL/min (Normal) Comments: Non- GFR Calc CREAT,SERUM 0.49 mg/dL (Abnormal) Range: 0.55-1.02 Comments: The validity of the calculated GFR AND GFRAA in patients over70 years has not been determined. Clinical correlation isessential. 17-Xvs-92468:40 CBC-Complete Blood Cnt No Diff Comments: [facility] [address] [place], [place], [address] MPV 11.0 fL (Normal) Range: 6.2-12.0 PLT [...] 4.4-11.0 :40 CPK Total, Creatine Kinase Comments: [facility] [address] [place], [place], [address] CPK TOTAL 1418 U/L (Abnormal) Range: 26-192 :40 Liver Profile Comments: [facility] [address] [place], [address] D BILI 0.12 mg/dL (Normal) Range: 0.00-0.30 T BILI 0.60 mg/dL (Normal) Range: 0.20-1.00 ALT 59 U/L (Abnormal) Range: 13-56 Comments: Please note revised ALT reference range rjbbdtiaq15/28/2018. ALK P 48 U/L (Normal) Range: 45-117 AST 60 U/L (Abnormal) Range: 15-37 GLOB 3.6 g/dL (Normal) Range: 2.2-4.2 ALB 3.4 g/dL (Normal) Range: 3.2-5.0 T PROT 7.0 g/dL (Normal) Range: 6.4-8.2 :40 Serum Creatinine AND GFR Comments: [facility] [address] [place], [address] EST GFR - AA 201 mL/min (Normal) Comments: GFR Calc EST GFR 166 mL/min (Normal) Comments: Non- GFR Calc CREAT,SERUM 0.41 mg/dL (Abnormal) Range: 0.55-1.02 Comments: The validity of the calculated GFR AND GFRAA in patients over70 years has not been determined. Clinical correlation isessential. 95-Zsv-519712:31 CBC-Complete Blood Cnt No Diff Comments: [facility] [address] [place], [address] MPV 10.5 fL (Normal) Range: 6.2-12.0 [...] 4.2-5.4 WBC 5.0 K/mm3 (Normal) Range: 4.4-11.0 05-Sqn-842164:31 CPK Total, Creatine Kinase Comments: [facility] [address] [facility] [place], [place], [address] CPK TOTAL 924 U/L (Abnormal) Range: 26-192 94-Irk-297004:31 Liver Profile Comments: [facility] [address] [facility] [place], [place], [address] D BILI 0.12 mg/dL (Normal) Range: 0.00-0.30 T BILI 0.70 mg/dL (Normal) Range: 0.20-1.00 ALT 49 U/L (Normal) Range: 12-78 ALK P 45 U/L (Normal) Range: 45-117 AST 49 U/L (Abnormal) Range: 15-37 GLOB 4.0 g/dL (Normal) Range: 2.2-4.2 ALB 3.6 g/dL (Normal) Range: 3.4-5.0 Comments: Please note revised Albumin AND Globulin reference rangeeffective 2017. T PROT 7.6 g/dL (Normal) Range: 6.4-8.2 78-Wtj-412864:31 Serum Creatinine AND GFR Comments: [facility] [address] [place], [place], [address] EST GFR - AA 142 mL/min (Normal) Comments: GFR Calc EST GFR 117 mL/min (Normal) Comments: Non- GFR Calc CREAT,SERUM 0.56 mg/dL (Normal) Range: 0.55-1.02 Comments: The validity of the calculated GFR AND GFRAA in patients over70 years has not been determined. Clinical correlation isessential. :18 CBC-Complete Blood Cnt No Diff Comments: [facility] [address] [place], [place], [address] MPV 10.6 fL (Normal) Range: 6.2-12.0 PLT [...] 4.4-11.0 :18 CPK Total, Creatine Kinase Comments: [facility] [address] [place], [place], [address] CPK TOTAL 1718 U/L (Abnormal) Range: 26-192 :18 Liver Profile Comments: [facility] [address] [place], [place], [address] D BILI 0.14 mg/dL (Normal) Range: 0.00-0.30 T BILI 0.60 mg/dL (Normal) Range: 0.20-1.00 ALT 58 U/L (Normal) Range: 12-78 ALK P 48 U/L (Normal) Range: 45-117 AST 60 U/L (Abnormal) Range: 15-37 GLOB 3.7 g/dL (Normal) Range: 2.2-4.2 ALB 3.5 g/dL (Normal) Range: 3.4-5.0 Comments: Please note revised Albumin AND Globulin reference rangeeffective 2017. T PROT 7.2 g/dL (Normal) Range: 6.4-8.2 02-Vas-01646:18 Serum Creatinine AND GFR Comments: [facility] [address] [place], [place], [address] EST GFR - AA 175 mL/min (Normal) Comments: GFR Calc EST GFR 145 mL/min (Normal) Comments: Non- GFR Calc CREAT,SERUM 0.46 mg/dL (Abnormal) Range: 0.55-1.02 Comments: The validity of the calculated GFR AND GFRAA in patients over70 years has not been determined. Clinical correlation isessential. 20-Ejw-751845:43 Basic Metabolic Profile (BMP) Comments: [facility] [address] [place], [place], [address] GAP 9 (Normal) Range: 5-15 CO2 26.0 [...] 7-18 GLU 97 mg/dL (Normal) Range: 70-110 64-Kna-169493:43 CBC W/Diff, Automated Comments: [facility] [address] [place], [place], [address] OVALOCYTE RARE (Normal) MACROCYTE 1+ (Normal) PLT [...] 4.2-5.4 WBC 5.5 K/mm3 (Normal) Range: 4.4-11.0 90-Lcb-232078:43 CPK Total, Creatine Kinase Comments: [facility] [address] [place] [address], [address] CPK TOTAL 1846 U/L (Abnormal) Range: 26-192 52-Jvt-488168:43 Liver Profile Comments: [address], [address] D BILI 0.17 mg/dL (Normal) Range: 0.00-0.30 T BILI 0.70 mg/dL (Normal) Range: 0.20-1.00 ALT 60 U/L (Normal) Range: 12-78 ALK P 55 U/L (Normal) Range: 45-117 AST 69 U/L (Abnormal) Range: 15-37 GLOB 3.4 g/dL (Normal) Range: 2.3-3.5 ALB 3.7 g/dL (Normal) Range: 3.4-5.0 T PROT 7.1 g/dL (Normal) Range: 6.4-8.2 :26 Basic Metabolic Profile (BMP) Comments: [facility] [address] [place], [place], [address] GAP 6 (Normal) Range: 5-15 CO2 27.0 [...] 7-18 GLU 96 mg/dL (Normal) Range: 70-110 :26 CBC W/Diff, Automated Comments: [facility] [address] [place], [place], [address] Absolute Lymph 0.33 {X10_3/ul} (Abnormal) Range: 0.83-4.51 [...] 4.2-5.4 WBC 5.2 K/mm3 (Normal) Range: 4.4-11.0 22-Loq-730906:26 CPK Total, Creatine Kinase Comments: [facility] [address] [place] [address], [address] CPK TOTAL 1661 U/L (Abnormal) Range: 26-192 03-Lhj-613392:26 Liver Profile Comments: [facility] [address] [place] [address], [address] D BILI 0.12 mg/dL (Normal) Range: 0.00-0.30 T BILI 0.60 mg/dL (Normal) Range: 0.20-1.00 ALT 54 U/L (Normal) Range: 12-78 ALK P 50 U/L (Normal) Range: 45-117 AST 58 U/L (Abnormal) Range: 15-37 GLOB 3.9 g/dL (Abnormal) Range: 2.3-3.5 ALB 3.6 g/dL (Normal) Range: 3.4-5.0 T PROT 7.5 g/dL (Normal) Range: 6.4-8.2 :44 CBC W/Diff, Automated Comments: ADD TO 0503:A324QGM TO 0503:F758GmverucGreen Cross Hospital [address] [place], [address] SMEAR COMMENT COMMENT (Normal) Comments: [...] 4.2-5.4 WBC 5.4 K/mm3 (Normal) Range: 4.4-11.0 9-Pgx-596920:42 CPK Total, Creatine Comments: ADD CPK/BMP/SPTFFEJ6-5-DDwzuvwcA[facility] [address] [place], [address] Kinase CPK TOTAL 1438 U/L (Abnormal) Range: 26-192 7-Myq-512828:42 CRP Comments: ADD CPK/BMP/RNFFDKU4-3-YLkrwqlkAultman [facility] Hospital [address] [place], [address] C-REACTIVE PROT 4.67 mg/L (Abnormal) Range: 0.0-3.0 Comments: C-Reactive Protein (CRP) provides useful information for thediagnosis, therapy and monitoring of inflammatory processesand associated diseases. For the evaluation of Relative Riskfor Cardiovascular Dise ase, a High Sensitivity CRP (HSCRP)should be ordered. 2-Yrp-638002:42 Erythrocyte Sed Rate Comments: [facility] [address] [place], [address] SED RATE 39 mm/h (Abnormal) Range: 0-30 6-Eei-845238:42 Hepatitis ABC Profile Comments: [facility] (refer to report for specific site)refer to report for address and phone number COMMENT Comment (Normal) Comments: Non reactive HCV antibody screen is consistent with no HCVinfection, unless recent infection is suspected or otherevidence exists to indicate HCV infection.Performed at: - [facility] [id number] Director: Arsh Cuellar PhD, Phone: [phone] HCV Ab <0.1 {s/co_ratio} (Normal) Range: 0.0-0.9 Hep B Michael AB Reactive (Normal) Comments: Non Reactive: Inconsistent with immunity, less than 10 mIU/mL Reactive: Consistent with immunity, greater than 9.9 mIU/mL HEP B CORE,TOT Negative (Normal) HB CORE [id number] Negative (Normal) HB SURF AG Negative (Normal) HEP A AB,T.6726 Positive (Abnormal) HEP A IgM 6734 Negative (Normal) 95-Ycl-256477:35 Basic Metabolic Profile (BMP) Comments: [facility] [address] [place], [place], [address] GAP 7 (Normal) Range: 5-15 CO2 26.0 [...] 7-18 GLU 105 mg/dL (Normal) Range: 70-110 43-Gqg-543152:35 CBC W/Diff, Automated Comments: [facility] [address] [place], [address] Absolute Lymph 0.28 {X10_3/ul} (Abnormal) Range: 0.83-4.51 [...] 4.2-5.4 WBC 5.3 K/mm3 (Normal) Range: 4.4-11.0 92-Wya-973417:35 CPK Total, Creatine Kinase Comments: [facility] [id number] [place], [place], [id number] CPK TOTAL 2479 U/L (Abnormal) Range: 26-192 13-Mxq-576634:35 Liver Profile Comments: [facility] [id number] [facility] [address] [place], [place], [id number] D BILI 0.17 mg/dL (Normal) Range: 0.00-0.30 T BILI 0.90 mg/dL (Normal) Range: 0.20-1.00 ALT 105 U/L (Abnormal) Range: 12-78 ALK P 52 U/L (Normal) Range: 45-117 AST 102 U/L (Abnormal) Range: 15-37 GLOB 3.6 g/dL (Abnormal) Range: 2.3-3.5 ALB 3.5 g/dL (Normal) Range: 3.4-5.0 T PROT 7.1 g/dL (Normal) Range: 6.4-8.2 3-Rsl-[id number]:33 Basic Metabolic Profile (BMP) Comments: [facility] [address] [facility] [address] [place], [place], [id number] GAP 9 (Normal) Range: 5-15 CO2 27.0 [...] Range: 70-110 :33 CBC W/Diff, Automated Comments: [facility] [id number] [place], [place], [id number] ANISO 2+ (Normal) Absolute Lymph 0.32 {X10_3/ul} [...] 4.2-5.4 WBC 4.8 K/mm3 (Normal) Range: 4.4-11.0 :33 CPK Total, Creatine Kinase Comments: [facility] [address] [place], [place], [address] CPK TOTAL 2987 U/L (Abnormal) Range: 26-192 8-Gyd-378757:33 Liver Profile Comments: [facility] [address] [place], [id number] D BILI 0.09 mg/dL (Normal) Range: 0.00-0.30 T BILI 0.60 mg/dL (Normal) Range: 0.20-1.00 ALT 120 U/L (Abnormal) Range: 12-78 ALK P 62 U/L (Normal) Range: 45-117 AST 115 U/L (Abnormal) Range: 15-37 GLOB 3.6 g/dL (Abnormal) Range: 2.3-3.5 ALB 3.5 g/dL (Normal) Range: 3.4-5.0 T PROT 7.1 g/dL (Normal) Range: 6.4-8.2 75-Mme-176610:54 Basic Metabolic Profile (BMP) Comments: [facility] [address] [place], [place], [address] GAP 11 (Normal) Range: 5-15 CO2 25.0 [...] 7-18 GLU 102 mg/dL (Normal) Range: 70-110 31-Hhp-336309:54 CBC W/Diff, Automated Comments: [facility] [address] [place], [address] POIK RARE (Normal) PLT EST ADEQUATE (Normal) [...] 4.2-5.4 WBC 5.1 K/mm3 (Normal) Range: 4.4-11.0 62-Zzs-232895:54 CPK Total, Creatine Kinase Comments: [facility] [address] [place], [address] CPK TOTAL 1840 U/L (Abnormal) Range: 26-192 72-Qki-587610:54 Liver Profile Comments: [facility] [address] [place], [address] D BILI 0.13 mg/dL (Normal) Range: 0.00-0.30 T BILI 0.50 mg/dL (Normal) Range: 0.20-1.00 ALT 70 U/L (Normal) Range: 12-78 ALK P 56 U/L (Normal) Range: 45-117 AST 76 U/L (Abnormal) Range: 15-37 GLOB 3.7 g/dL (Abnormal) Range: 2.3-3.5 ALB 3.5 g/dL (Normal) Range: 3.4-5.0 T PROT 7.2 g/dL (Normal) Range: 6.4-8.2 :55 TEMPORAL ARTERY BX See Note (Normal) Comments: [facility] [address] [place], [place], [address] Comments: Patient: SYLVIA RAMIREZ : 1955 (60/F) Acct Num: [id number] Phys: Lyndon Saavedra MD Unit Num: [id number] Loc: LABSPEC Specimen: [id number] Received: 01/20/161813 Spec Type : TEMPORAL TISSUES [...] fixation serial sectioning. / AM:rickie 01/21/16 TC:5 CPT:56659, 18042 HEADER OPERATION: Left temporal artery biopsy PRE-OP [...] W/Diff, Automated Comments: Order Date: 01/10/16Order Date: 01/10/16[facility] [address] [place], [address] SMEAR COMMENT SCANNED (Normal) Absolute [...] :05 CRP Comments: Order Date: 01/10/16Order Date: 01/10/16[facility] [address] [place], [id number] C-REACTIVE PROT 192.00 mg/L (Abnormal) Range: 0.0-3.0 Comments: C-Reactive Protein (CRP) provides useful information for thediagnosis, therapy and monitoring of inflammatory processesand associated diseases. For the evaluation of Relative Riskfor Cardiovascular Dise ase, a High Sensitivity CRP (HSCRP)should be ordered. :05 Erythrocyte Sed Rate Comments: Order Date: 01/10/16[facility] Date: [facility] [address] [place], [id number] SED RATE 79 mm/h (Abnormal) Range: 0-30 76-Mnh-701570:46 Basic Metabolic Profile (BMP) Comments: [facility] [address] [place], [address] GAP 3 (Abnormal) Range: 5-15 CO2 27.0 [...] <126 mg/dLsuggests IMPAIRED HOMEOSTASIS per A.D.A. criteria. 76-Mxw-349118:46 CBC W/Diff, Automated Comments: [facility] [address] [place], [address] ANISO 1+ (Normal) PLT EST ADEQUATE (Normal) [...] (Abnormal) WBC 5.1 K/mm3 (Normal) Range: 4.4-11.0 76-Waj-033445: NEUROMA - See Note (Normal) Comments: [facility] [address] [place], [place], [address] 00 [facility]TRAUMATIC Comments: Patient: SYLVIA RAMIREZ : 1955 (60/F) Acct Num: [id number] Phys: Omari Quinones DPMrey Unit Num: [id number] Loc: [facility] Specimen: [id number] Received: 04/15/15 0755 Spec Type: N EUROMA TISSUES TISSUES: GROSS DESCRIPTION Received is one container labeled with the patient name and designated right third intermetatarsal space neuroma. The specimen consists of multiple pieces of wiley-yellow soft tissue measuring in aggregate 2.5 x 2 x 0.3 cm. The specimenis totally submitted in one cassette. 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 MICROSCOPIC DIAGNOSIS Soft tissue of right hand, third intermetatarsal space, excision: Consistent with neuroma. AM: 04/16/15 Signed Joel [facility] 04/16/15 <signature on file> 43-Lzo-026215: BREAST BIOPSY (CHOOSE See Note (Normal) Comments: [facility] [address] [place], [place], [address] 10 [facility]) Comments: Patient: SYLVIA RAMIREZ : 1955 (59/F) Acct Num: [id number] Phys: Preeti HERRING,Jaxon Unit Num: [id number] Loc: LABSPEC Specimen: [id number] Received: 02/06/151614 Spec Type: BREAST BX TISSUES [...] one cassette. / AM: 02/07/15 TC:5 CPT: 99674 HEADER OPERATION: U/S guided core biopsy left breast PRE-OP DIAGNOSIS: Abnormal mammogram R92.8 TISSUE SUBMITTED: Needle core biopsy left breast ISCHEMIC TIME: 5 seconds MICROSCOPIC DESCRIPTION Slides are reviewed. MICROSCOPIC DIAGNOSIS Left br east, U/S guided core biopsy: Extensive dense fibrosis and fibrocystic changes. Negative for atypia or malignancy in the submitted specimen. SJ: 02/08/15 Signed Hi Hernandez 02/08/15 <signature on file> 10-Bxa-28199:45 LIPID VLDL 12 mg/dL (Normal) Range: 5-40 [...] CHOL 213 mg/dL (Abnormal) Comments: <200 mg/dL Weipyfbku262-029 mg/dL Borderline>240 mg/dL High Risk 03-Eax-580818:03 PARATHORMONE (79589) Comments: PATIENT NOT FASTINGPERFORMED BY: [facility] [address] [id number] Information: K53687,2ND ORDER NO DRAW F EE PTH, Intact 23 pg/mL (Normal) Range: 15-65 93-Gjb-238743:02 TSH (THYROID STIMULATING Comments: PATIENT NOT FASTINGPERFORMED BY: [facility] [address] GridD[place] [id number] HORMONE) (75624) TSH 0.733 {uIU/mL} (Normal) Range: 0.450-4.500 80-Aoo-097339:02 CALCIFEDIOL (83756) Comments: PATIENT NOT FASTINGPERFORMED BY: [facility] Mjitsj[address] Torres RoadDublin [place] [id number] Vitamin D, 25-Hydroxy 28.9 ng/mL (Abnormal) Range: 30.0-100.0 Comments: Vitamin D deficiency has been defined by the [place] [employer] and an Endocrine Society practice guideline as alevel of serum 25-OH vitamin D less than 20 ng/mL (1,2).The Endocrine Society went on to further define vitamin Dinsufficiency as a level between 21 and 29 ng/mL (2).1. IOM ([place] [employer]). 2010. Dietary reference intakes for calcium and D. [place]: The National Academies Press.2. Fernie MF, Saida COONNOR, Esdras JIMENEZ, et al. Evaluation, treatment, and prevention of vitamin D deficiency: an Endocrine Society clinical practice guideline. JCEM. 2010; 96(7):1911-30. :02 METABOLIC PANEL, Comments: PATIENT NOT FASTINGPERFORMED BY: [facility] Vaw[address]un2186 [facility] [id number] Information: [id number] COMPREHENSIVE (98995) ALT (SGPT) 77 [iU]/L (Abnormal) Range: 0-32 [...] Glucose, Serum 110 mg/dL (Abnormal) Range: 65-99 12-Xkz-793450:28 CBCD Comments: NO CHARGE REDRAW ANC 7.5 [...] 4.2-5.4 WBC 8.6 K/mm3 (Normal) Range: 4.4-11.0 59-Nsy-562483:29 SED Comments: NO CHARGE REDRAW tSEDRATE 20 mm/h (Normal) Range: 0-30 03-Zvn-652564:42 Urinalysis, Office (46669) UA - LEUKOCYTE ESTERASE Negative (Normal) UA - NITRITE Negative (Normal) URINE UROBILINGN MARIE TIMED Normal mg/dL (Normal) UA - PROTEIN Negative mg/dL (Normal) UA - PH 7 (Normal) UA - BLOOD Negative (Normal) UA - SPECIFIC GRAVITY 1.020 (Normal) UA - KETONES Small mg/dL (Normal) UA - BILIRUBIN Negative (Normal) UA - GLUCOSE Negative (Normal) 2-Cwb-181412:38 Systemic Lupus Profile Comments: PATIENT NOT FASTINGPERFORMED BY: STEPH [facility] Zdwnsk1058 Brian EspinoAt[facility] Health [facility] West [id number] Information: [id number] (38115) Anti-DNA (DS) Ab Qn 3 {IU/mL} (Normal) Range: 0-9 Comments: Negative <5 Equivocal 5 - 9 Positive >9 Sjogren's Anti-SS-B 0.2 {AI} (Normal) Range: 0.0-0.9 Sjogren's Anti-SS-A <0.2 {AI} (Normal) Range: 0.0-0.9 Antichromatin Antibodies <0.2 {AI} (Normal) Range: 0.0-0.9 RA Latex Turbid. 8.4 {IU/mL} (Normal) Range: 0.0-13.9 Iraheta Antibodies <0.2 {AI} (Normal) Range: 0.0-0.9 COMPUTER TECH Antibodies <0.2 {AI} (Normal) Range: 0.0-0.9 8-Cqs-485515:05 HAND MIN 3 VIEWS Radiology Report See [...] Sawant M.D.November 25 3 at 2:42:01 PM [id number] Signed GP/GP If you are the referring physician and would like to consult with theradiologist who provided this interpretation, please contact Amber calixto M.D. at [phone]. If this radiologist is unavailable, youwill be directed to another radiologist to assist. If you are a patient with a question regarding this report, pleasecontactyour referr ing physician directly. Professional Interpretation Provided By: [employer], Phone , These documents contain legally protected [...] Dictated on 11/25/12 1442 by Loly HERRING ,Ruranscribed on 11/25/12 1454 by ITS IMPORTSign by Tobin Sawant MD on 11/25/12 1454 Sign by: Tobin Sawant MD 3-Anp-502376:04 HAND MIN 3 VIEWS Radiology Report See [...] swelling. Signed:Tobin Sawant M.D.November at 2:42:30 PM [id number] Signed GP/GP If you are the referring physician and would like to consult with theradiologist who provided this interpretation, please contact Tobin Sawant M.D. at [phone]. If this radiologist is unavailable, youwill be directed to another radiologist to assist. If you are a patient with a question regarding this report, pleasecontactyour r joleenerring physician directly. Professional Interpretation Provided By: [employer], Phone , These documents contain legally protected [...] 11/25/12 1454 Sign by: Tobin Sawant MD 8-Grd-978656:04 WRIST MIN 3 VIEWS Radiology See Note [...] Sawant M.D.November 25, 2012 at 2:43:33 PM [id number] Signed GP/GP If you are the referring physician and would like to co nsult with theradiologist who provided this interpretation, please contact Jaz Falk at [phone]. If this radiologist is unavailable, youwill be directed to another radiologist to [facility]. If you are a patient with a question regarding this report, pleasecontactyour referring physician directly. Professional Interpretation Provided By: [employer], Phone ,Fax These documents contain legally protected [...] destructionofthese documents. Dictated on 11/25/12 1443 by Vera Sawant MDscribed on 11/25/12 1455 by ITS IMPORTSign by Tobin Sawant MD on 11/25/12 1456 Sign by: Tobin Sawant MD 0-Iis-939262:04 WRIST MIN 3 VIEWS Radiology See Note [...] Sawant M.D.November 25, 2012 at 2:42:31 PM [id number] Signed GP/GP If you are the referring physician and would like to con sult with theradiologist who provided this interpretation, please contact Jaz Falk at [phone]. If this radiologist is unavailable, youwill be directed to another radiologist to [facility]. If you are a patient with a question regarding this report, pleasecontactyour referring physician directly. Professional Interpretation Provided By: [employer], Phone , These documents contain legally protected [...] 11/25/12 1457 Sign by: Tobin Sawant MD 9-Nqo-897726:50 CCP ANTIBODY (25113) Comments: PATIENT NOT FASTINGPERFORMED BY: [facility] Drziom2287 [facility] [id number] BY: [facility] [address] [id number] CCP Antibodies IgG/IgA 21 {units} (Abnormal) Range: 0-19 Comments: Negative <20 Weak positive 20 - 39 Moderate positive 40 - 59 Strong positive >59 8-Xdf-748597:50 SED RATE ERYTHROCYTE Comments: PATIENT NOT FASTINGPERFORMED BY: LabCynthia [place] 3032070 [facility] [id number] BY: [address] [id number] (81055) Sedimentation Rate-Westergren 2 mm/h (Normal) Range: 0-40 7-Ndn-267090:50 C-REACTIVE PROTEIN (94428) Comments: PATIENT NOT FASTINGPERFORMED BY: [place] 2686270 [facility] [id number] BY: [address] [id number] C-Reactive Protein, Quant 1.6 mg/L (Normal) Range: 0.0-4.9 2-Zky-735524:50 TSH (18574) Comments: PATIENT NOT FASTINGPERFORMED BY: [facility] [place] 3032070 [facility] [id number] BY: [address] [id number] TSH 1.410 {uIU/mL} (Normal) Range: 0.450-4.500 4-Qzj-063828:50 RHEUMATOID FACTOR-QUANT Comments: PATIENT NOT FASTINGPERFORMED BY: [place] 2686270 [facility] [id number] BY: [address] [id number] (50777) RA Latex Turbid. 5.4 {IU/mL} (Normal) Range: 0.0-13.9 7-Fgg-390914:50 PATRICK (ANTINUCLEAR ANTIBODY) Comments: PATIENT NOT FASTINGPERFORMED BY: [facility] 3032070 [facility] [id number] BY: [address] [id number] (78205) PATRICK Direct Positive (Abnormal) 5-Yys-409913:50 CBC WITH MANUAL DIFF Comments: PATIENT NOT FASTINGPERFORMED BY: STEPH Work in Field Gbvvbl0879 [facility] [id number] BY: LabUtility AssociatesDaniel Ville 169287 [facility] [id number] Inf ormation: [id number] (90453) Immature Grans (Abs) 0.0 {x10E3/uL} (Normal) Range: [...] 3.77-5.28 WBC 4.7 {x10E3/uL} (Normal) Range: 4.0-10.5 6-Mvx-268177:50 METABOLIC PANEL, Comments: PATIENT NOT FASTINGPERFORMED BY: STEPH Work in FieldNew Bridge Medical CenterKcsxil5987 [facility] [id number] BY: [facility] [address] [id number] [facility] (37341) ALT (SGPT) 22 [iU]/L (Normal) Range: 0-32 [...] Glucose, Serum 93 mg/dL (Normal) Range: 65-99 98-Ien-94413:49 LIPID,HEALTHPNT VLDL 14 mg/dL (Normal) Range: 5-40 [...] COMPREHENSIVE Comments: PATIENT WAS FASTINGPERFORMED BY: STE[facility] Lxgfjx3250 [facility] [id number] (99633) ALT (SGPT) 20 [iU]/L (Normal) Range: 0-40 [...] MANUAL DIFF Comments: PATIENT WAS FASTINGPERFORMED BY: Work in FieldSanta Ana Health CenterXcpbgw6563 [facility] [id number] Information: [id number] (86522) Baso (Absolute) 0.0 {x10E3/uL} (Normal) Range: 0.0-0.2 [...] {x10E3/uL} (Abnormal) Range: 4.0-10.5 :18 LIPID PANEL (50363) Comments: PATIENT WAS FASTINGPERFORMED BY: CloudAppsCoNew Bridge Medical CenterDiozza2777 [facility] [id number] LDL Cholesterol Calc 128 mg/dL (Abnormal) Range: [...] Report See Note (Normal) Comments: Exam Number: [id number] UNILATERAL LEFT RIBS Several views of the [...] Report See Note (Normal) Comments: Exam Number: [id number] DORSAL SPINE AP and lateral views were [...] unspecified laterality Planned Observations METABOLIC PANEL, COMPREHENSIVE (91410)Indication: Hyperlipidemia, mild On: 9-Liz-914771:49 Request LIPOPROTEIN, BLD, BY NMR (23290)Indication: Hyperlipidemia, mild On: 7-Zyv-434991:49 Request HEPATIC FUNCTION PANEL (58429)Indication: Hyperlipidemia, mild On: :28 Request LIPOPROTEIN, BLD, BY NMR (12358)Indication: Hyperlipidemia, mild On: :28 Request CBC, Platelets & Auto Diff (46651)Indication: Headache, occipital On: : Request Comments: all labs stat C-Reactive Protein (31387)Indication: Headache, occipital On: : Request Sed Rate Erythrocyte (05626)Indication: Headache, occipital On: : Request Sed Rate Erythrocyte (69570)Indication: Headache, occipital On: :09 Request LIPID PANEL (42219)Indication: Osteoarthrosis, not specified whether generalized/localized, lower leg On: 5-Faq-253123:11 Request Parathyroid Hormone-related Peptide (PTH-rP) (28266)Indication: Abnormal blood chemistry On: 16-Llg-062291:02 Request METABOLIC PANEL, COMPREHENSIVE (88991)Indication: Swelling On: 84-Uqg-545550:15 Request Comments: Add to standing order to be done today CPK TOTAL & ISOENZYMES (26511)Indication: Elevated CPK On: 93-Phj-674625:14 Request Comments: repeat today add to standing labs C-Reactive Protein (27485)Indication: Elevated CPK On: 78-Wxd-165125:14 Request Comments: include with standing labs today TSH (45158)Indication: Swelling On: :12 Request Comments: Add to current standing order for today only Print this for pt MICROALBUMIN URINE QUANT (97564)Indication: Swelling On: 91-Cfe-161579:43 Request MICROALBUMIN: CREATININE RATIO (18268) AND (08695)Indication: Swelling On: 11-Jiz-256166:43 Request EXTRCTBL NUCLR ANTGEN EA (26263) test code 568527Gceaepwjmu: Abnormal blood chemistry On: : Request ANTI-Sm (ANTI IRAHETA ANTIBODY) (46249) test code 223109Cajkcktecd: Abnormal blood chemistry On: : Request ANTI-COMPUTER TECH (ANTI RIBONUCLEAR PROTEIN ANTIBODY) (44616) test code 072283Xpcrmfgjal: Abnormal blood chemistry On: : Request DNA ANTIBODY-NATV/DBL ST (57995) test code 515970Vldjrpimdx: Abnormal blood chemistry On: :25 Request URINALYSIS (93000)Indication: Malignant neoplasm of breast (female) On: :27 Request CBC (Auto) (68882)Indication: Malignant neoplasm of breast (female) On: 72-Cdd-518485:22 Request Metabolic Panel, Comprehensive (40310)Indication: Malignant neoplasm of breast (female) On: 66-Oqb-173152:22 Request Planned Encounters Medical; [facility] Pre Wellness Exam (DB Nurse) - On: 03-Jun-2018 8:30 [facility] VINICIO Hillman; VIP Pre Wellness Exam (DB Nurse) - On: 05-Jul-2018 8:00 [facility] Dahiana HERRING, Lorena Talbot MD, Lorena Lewis Planned Procedures MAMMOGRAM BREAST BILATERAL On: 21-Mar-2018 Intent SCREENING DIGITAL (47584)By: Dahiana HERRING, Lorena Hopson MD INJECTION, PROLIA (J0897)By: Visit, On: 24-Feb-2018 Intent Nurse Comments: [id number]/20prefilled syringer arm, SCMLONG Bone Density StudyBy: Dahiana HERRING, On: 01-Feb-2018 Intent Lorena Hopson MD Comments: due after 03-10-18 INJECTION, PROLIA (J0897)By: On: 14-Jul-2017 Intent Lorena Talbot MD, MD, Dana Comments: lot: [id number]: 09/2019site/route: R arm/SQamt: prefilled syringeVIS signed when applicableBLU Waters INJECTION, PROLIA (J0897)By: On: 17-Dec-2016 Intent Lorena Talbot MD, MD, Dana Comments: Lot:[id number]:02/11Dose:60mlRoute:sub q Site:r armGiven By:JKMEDUAR mooney M Radiology - ChestBy: Dahiana HERRING, On: 02-Jul-2016 Intent Lorena Hopson MD Comments: recheck approx. 4 weeks check before 08-03-16 follow up Radiology - Chest- PA and LatBy: On: 02-Jul-2016 Intent Lorena Talbot MD, MD, Dana M Inhaler Demo (18170)By: Dahiana HERRING, On: 02-Jul-2016 Intent Lorena Hopson MD Aerosol Treatment (70699)By: On: 02-Jul-2016 Intent Lorena Talbot MD, MD, Dana M INJECTION, PROLIA (J0897)By: On: 12-Jun-2016 Intent Lorena Talbot MD, MD, Dana Comments: lot: [id number]: 08/12site/route: R arm/SQamt: prefilled syringe 60mgVIS signed when applicableBLU Waters LE Arterial Exam - LowerBy: Dahiana On: 02-Apr-2016 Intent Lorena HERRING MD, Dana M Aerosol Treatment (55004)By: Dewayne On: 04-Mar-2015 Intent Pat GARCIA RIGHT MAMMOGRAM (81901)By: Dewayne On: 04-Mar-2015 Intent Pat GARCIA Breast Ultrasound - LeftBy: Dewayne On: 01-Jan-2015 Intent Pat GARCIA Comments: call results to Nabil at [facility] LEFT MAMMOGRAM (72557)By: Dewayne On: 01-Jan-2015 Intent Pat GARCIA Comments: call Agus Buchanan at [facility] with results Bone Density StudyBy: Dahiana HERRING, On: 31-Jan-2014 Intent Lorena Hopson MD BILATERAL MAMMOGRAMS (24219)By: On: 31-Jan-2014 Intent Lorena Talbot MD, MD, Dana M Kenalog Injection, 10 mgm On: 05-Dec-2013 Intent (J3301)By: Lorena Talbot MD Comments: lot: [id number]: 04/09site/route: L and R knee/joint injamt: 1cc in each kneeVIS signed when applicablex8 Lorena Talbot MD Echo CompleteBy: Pat Buchanan CNP On: 11-Aug-2013 Intent Eprescribed prescriptions On: 11-Aug-2013 Intent (G8553)By: Pat Buchanan CNP Eprescribed prescriptions On: 18-Jul-2013 Intent (G8553)By: Lorena Talbot MD, MD, Dana M Eprescribed prescriptions On: 08-Jun-2013 Intent (G8553)By: Becky Bryan DO Wax CurettesBy: Becky Byran DO On: 08-Jun-2013 Intent Ear Irrigation (43000)By: Randi On: 08-Jun-2013 Intent Becky THOMAS Comments: small amt came out of both ears but still thin film on rim Radiology - Wrist - BilateralBy: On: 25-Nov-2012 Intent Becky Bryan DO Radiology - Hand - BilateralBy: On: 25-Nov-2012 Intent Becky Bryan DO IMMUNIZATION ADMIN (32358)By: On: 04-May-2012 Intent Katerina Broderick Comments: Lot:[id number]:07-30-13Dose:prefilledRoute:IMSite:R armGiven By:JKMSERSEKOU COMPLETE ON THIS DATE IMMUNIZATION ADMIN (48829)By: On: 09-Jun-2011 Intent Eneida Beth Comments: Lot:[id number]:01/30/13Amt:prefilledRoute:IMSite:right deltGiven By: KENNEDY Greene IMMUNIZATION ADMIN (66749)By: On: 11-May-2011 Intent Julio C BENAVIDESShavon Comments: Lot #[id number]-09/1/13Site-right deltoidgiven by: Jeffrey Bunch LPN TDAP VACCINE >7 IM (19262)By: On: 04-May-2011 Intent Lorena Talbot MD, MD, Dana M IMMUNIZATION ADMIN (55876)By: On: 04-May-2011 Intent Lorena Talbot MD, MD, Dana M Kenalog Injection, 10 mgm On: 27-Jun-2010 Intent (J3301)By: Lorena Talbot MD, MD, Dana M Kenalog Injection, 10 mgm On: 27-Jun-2010 Intent (J3301)By: Lorena Talbot MD, MD, Dana M DXA, BONE DENSITY, AXIAL SKELETON On: 14-Nov-2009 Intent (05065)By: Lorena Talbot MD Comments: estrogen def, medication high risk Lorena Talbot MD Venous Doppler - LeftBy: Dahiana On: 25-Sep-2009 Intent Lorena HERRING MD, Dana M Comments: lower Gnstdykma-Qdb-Ebdm (19912)By: On: 31-May-2009 Intent Lorena Talbot MD, MD, Dana Comments: pain along rib M Radiology - Thoracic SpineBy: On: 31-May-2009 Intent Lorena Talbot MD, MD, Dana M PHYSICAL THERAPY EVALUATION On: 03-Apr-2008 Intent (52302)By: Dewayne GARCIA, Pat Dowling Radiology - ChestBy: [employer] GEOTECHNICIAL PROPERTIES TECHNICIAN, On: 03-Apr-2008 Intent Asuncion Kenalog Injection, 10 mgm On: 04-Nov-2007 Intent (J3301)By: Lorena Talbot MD Comments: x 4 Lorena Talbot MD EMGBy: Lorena Talbot MD On: 02-Sep-2007 Intent Lorena HERRING Nerve ConductionBy: Dahiana HERRING, On: 02-Sep-2007 Intent Lorena Talbot MD, Lorena Lewis Comments: upper extremities bilateral Planned Medications INJECTION, PROLIA Ordered: 12-Jun-2016 Ender Talbot MD, Lorena Talbot MD, Lorena Lewis INJECTION, PROLIA Ordered: 17-Dec-2016 Lorena Smith MD, MD, Lorena Lewis INJECTION, PROLIA Ordered: 14-Jul-2017 Pending Lorena Talbot MD, MD, Lorena Lewis INJECTION, PROLIA Ordered: 24-Feb-2018 Pending Visit, Nurse INJECTION, TRIAMCINOLONE ACETONIDE, NOT OTHERWISE SPECIFIED, 10 MG Ordered: 27-Jun-2010 Ender Talbot MD, Lorena Talbot MD, Lorena Lewis INJECTION, TRIAMCINOLONE ACETONIDE, NOT OTHERWISE SPECIFIED, 10 MG Ordered: 27-Jun-2010 Lorena Smith MD, MD, Lorena Lewis INJECTION, TRIAMCINOLONE ACETONIDE, NOT OTHERWISE SPECIFIED, 10 MG Ordered: 05-Dec-2013 Pendolive Talbot MD, Lorena Talbot MD, Lorena Lewis Instructions Name [...] Indication: Cerumen impaction Encounters Phone Encounter On: 25-Mar-2018 11:50 Encounter Diagnosis: Altitude sickness prophylaxis End: 25-Mar-2018 11:54 [facility] Office Visit On: 25-Mar-2018 10:33 Encounter Diagnosis: Unspecified Diagnosis End: 25-Mar-2018 10:34 [facility] Phone Encounter On: 21-Mar-2018 11:24 Encounter Diagnosis: [...] for Follow up acute care visit: In [place] and noted left arm red streak from [...] for Earache: will be leaving wednesday for [facility]. had sinusitis month ag o. feel [...] (left). Note for Calf pain: drove to [place] and at [employer]. wearing fit flops. in 4-10 left knee [...] incident not at work (working out at [employer]) and has been occurring in an intermittent [...] Osteoarthritis (715.96), Sleep disorder (780.50), Obesity,unspecified (278.00), [facility] Office Visit On: [...] and type alot and also restart at [facility] Diagnosis: Parasthesia (782.0) [facility] [...]
--- OUTSIDE RECORDS SUMMARY | 2018-05-19 10:06 | XMS RPT_ITS | Continuity of Care Document ---
:1955 Author Organization [facility] Address [facility] [place] [address] Phone Care Team Providers Name Role Phone [...] calm day and working stay away from [facility]. Status: Active Epigastric pain (R10.13, 789.06) [...] (M19.90, 714.9) Comments: saw Dr. 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 broke off with relationship had 2 years ago. some is winter. ding better. Status: Active Well woman exam (Renamed from Encounter for well woman exam) (Z01.419, V72.31) Comments: 06-25-17 [facility] Wellness exam: Mammogram 03-16-17, Bone density 03-10-16, [...] 0 Ordered:01-Jan-2015 Slarb Carmen BENAVIDES Start : 28-Nov-2013 Active Comments:per Dr. Fitzpatrick Desonide 0.05 % External Cream 1 (one) Cream [...] days Quantity: 30 {Tablet} Refills: 0 Ordered:24-Mar-2018 BoneLorena burroughs MD, MD, Dana M Start : 24-Mar-2018 [...] days Quantity: 3 {Tablet} Refills: 0 Ordered:04-May-2011 Lorena Talbot MD, MD, Dana M Start : 04-May-2011 End : 07-May-2011 Inactive [...] days Quantity: 20 {Tablet} Refills: 0 Ordered:11-Aug-2013 Jodymark RADHAPat Start : 11-Aug-2013 End : 14-Aug-2013 Inactive [...] days Quantity: 30 {Tablet} Refills: 0 Ordered:01-Jan-2015 Binu Holt LPNa Start : 21-Jul-2013 End : 01-Jan-2015 Discontinued [...] 23-Oct-2008 Cough (R05, 786.2) Comments: [place] here in [place]. some PND no reflux. Status: Resolved as [...] with patient xrays look up from the [facility]. CPPD. Status: Inactive as of 11-Jul-2015 Lipoma (D17.9, 214.9) Status: Inactive as of 11-Jul-2015 Low back pain (M54.5, 724.2) Status: Inactive as of 03-Oct-2008 Malnutrition (E46, 263.9) Status: Inactive as of 11-Jul-2015 Neck pain (M54.2, 723.1) Status: Inactive as of 22-Sep-2016 Obesity, unspecified (E66.9, 278.00) Status: Inactive as of 22-Sep-2016 Osteoarthritis (M17.10, 715.96) Comments[facility] [place] lateral left joint compartment Status: [...] knee surgery left 1999 Completed bilateral foot [id number] Completed Carpal Tunnel Completed Comments: left 2010 Dr. Chandler Carpal Tunnel right wrist Completed Comments: Dr. Chandler 06-03-10 Colonoscopy Completed Comments: 11-06-13 Dr. Gimenez repeat in 10 years Hernia 1997 Completed Hysterectomy, Total Completed Comments: Dr. Mabry Lumpectomy Completed Comments: 06/2006-lft breast Tonsillectomy Completed Comments: 1959 Date Value Details 24-Mar-2018 Dexa Bone Density Study Result: Comments: See Note; NOTES: [facility] Imaging Services [address] [place] [address] Dexa Bone Density Study MR#: [id number] Acct: [id number] Name: SYLVIA RAMIREZ Rep #: [id number] : 1955 F 63 From: Tobin Sawant MD PCP: Lorena Talbot MD Status: REG CLI Study: Dexa Bone Density Study Date of Exam: 03/24/18 Exam# [id number] Ordering Dr: Lorena Talbot MD STUDY: D [...] Densitometry http://www.iscd.org 3. National Osteoporosis Foundation http://www.nof.org Akylie ctronically Signed: Tobin Sawant MD at 12:33 EST Tel [phone], Service support , CC: Lorena Talbot MD Manager Fleet: Signed 24-Mar-2018 SCREENING MAMM (CAD), BILAT Result: Comments: See Note; NOTES: [facility] Imaging Services [address] [place] [address] SCREENING MAMM (CAD), BILAT MR#: [id number] Acct: [id number] Name: SYLVIA RAMIREZ Rep #: [id number] : 1955 F 63 From: Tobin Sawant MD PCP: Lorena Talbot MD Status: [facility] CL Study: SCREENING MAMM (CAD), BILAT Date of Exam: 03/24/18 Exam# [id number] Ordering Dr: Lorena Talbot MD MAMMOGRAPHY - [...] biopsy of a clin ically suspicious abnormality. [id number] Electronically Signed: Tobin Sawant MD at 11:21 EST Tel [phone], Service support , CC: Lorena Talbot MD Manager Fleet: Signed 30-Nov-2017 Emergency Department Summary Result: Comments: See Note; NOTES: [facility] Medical Records Department [address] [place] [address] Emergency Department Summary 11/30/17 0934 MR#: [id number] Acct: [id number] Name: SYLVIA RAMIREZ Rep #: [id number] : 1955 62 From: Eliezer Ojeda DO PCP: Lorena Talbot MD Status: REG ER - ER Visit Summary Date of Service: 11/30/17 Chief Complaint: [] History of Present Il lness: The patient is a 62 F [] Physical Examination: [] Test Results: [] Emergency Department Course and Treatment: [] Treatment Plan: [] Disposition: [] Impression: [] This note was generated with [employer] Midstream[employer] software. It may contain incorrect words, spelling, and punctuation that were not noted in review of the chart prior to signing ED Disposition - Plan for ED Patient: Dispositio n: Home or Assisted Living Chief Complaint: Abd Pain Diagnosis: Right upper quadrant abdominal pain of unknown etiology Instructions: ED Abdominal Pain Unkn Cause Prescriptions: Hydrocodone Bitart/Apap 5-325 [[place] 5MG-325MG] 1 tab PO Q6H PRN PRN 3 Days #10 tab PRN Reason: Pain Omeprazole [Prilosec] 20 mg PO DAILY #30 cap Referrals: Lorena Talbot MD [Primary Care Provider] - What to do if you have Problems For any increased pain, shortness of breath, bleeding, nausea or vomiting, chest pain, or any unexpected problems, contact your Primary Care Provider. Call [facility] ([phone]) or report to the closest Emergency Room. Call 911 if necessary. 11/30/17 0937 <Electronically signed by Eliezer Ojeda DO> Date Eliezer sanchez DO Cosigner Signature (If Indicated): Date CC: Lorena Talbot MD 30-Nov-2017 Emergency Department Summary Result: Comments: See Note; NOTES: [facility] Medical Records Department [address] [place] [address] Emergency Department Summary 11/30/17 0417 MR#: [id number] Acct: [id number] Name: SYLVIA RAMIREZ Rep #: [id number] : 1955 62 From: Bladimir Parikh MD PCP: Lorena Talbot MD Status: REG ER ADDENDUM by Eliezer Ojeda DO on 11/30/17 at 0934 Care of the patient was turned over to de a t 7 AM. Right upper quadrant ultrasound was obtained and was normal. Patient was given a prescription for Prilosec and a short course of [place]. Patient was instructed to follow-up with her [...] given opti on of staying until the nurse private duty presents in the morning for ultrasound or [...] and vomiting This note was generated with [employer] dictation software. It may contain incorrect words, [...] your Primary Care Provider. Call [facility] ([phone]) or report to the closest Emerge ncy Room. Call 911 if necessary. 11/30/17 0702 <Electronically signed by Bladimir Parikh MD> Date Bladimir Parikh MD Cosigner Signature (If Ind icated): Date CC: Lorena Talbot MD 30-Nov-2017 Emergency Department Summary Result: Comments: See Note; NOTES: [facility] Medical Records Department [address] [place] [address] Emergency Department Summary 11/30/17 0417 MR#: [id number] Acct: [id number] Name: SYLVIA RAMIREZ Rep #: [id number] : 1955 62 From: Bladimir Parikh MD [...] or night sweats. 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 She denies [...] was given option of staying until the nurse private duty presents in the morning for ultrasound or [...] and vomiting This note was generated with [employer] Midstream[employer] s oftware. It may contain incorrect words, [...] your Primary Care Provider. Call [facility] ([phone]) or report to the closest Emergency Room. Call 911 if necessary. 11/30/17 0702 <Electronically signed by Bladimir Parikh MD&#62 ; Date Bladimir Parikh MD Cosigner Signature (If Indicated): Date CC: Lorena Talbot MD 30-Nov-2017 Gallbladder Result: Comments: See Note; NOTES: [facility] Imaging Services [address] [place] [address] Gallbladder MR#: [id number] Acct: [id number] Name: SYLVIA RAMIREZ Rep #: [id number] : 1 05/18/1954 F 62 From: Joseph Tony DO PCP: Lorena Talbot MD Status: REG ER Study: Gallbladder Date of Exam: 11/30/17 Exam# [id number] Ordering Dr: Bladimir Parikh MD STUDY: ABDOMINAL [...] upper quadrant ultrasound examination. Electronically Signed: Joseph TonyDO at 8:59 EDT Tel , Service support , CC: Lorena Talbot MD; Bladimir Parikh MD Manager Fleet: Signed 16-Mar-2017 SCREENING MAMM (CAD), BILAT Result: Comments: See Note; NOTES: [facility] Imaging Services [address] [place] [address] SCREENING MAMM (CAD), BILAT MR#: [id number] Acct: [id number] Name: SYLVIA RAMIREZ Rep #: [id number] : 1955 F 61 From: Tobin Sawant MD PCP: Lorena Talbot MD Status: REG CLI Study: SCREENING MAMM (CAD), BILAT Date of Exam: 03/16/17 Exam# [id number] Ordering Dr: Yomi Pérez AMMOGRAPHY - BILATERAL [...] delay biopsy of a clinically suspicious abnormality. [id number] Electronically Signed: Tobin Sawant MD at 10:39 EST Tel [phone], Service support , CC: Lorena Talbot MD; Yomi Pérez DO Manager Fleet: Signed 02-Jul-2016 Chest PA and Lateral Result: Comments: See Note; NOTES: [facility] Imaging Services [address] [place] [address] Verdana 4d Chest PA and Lateral MR#: [id number] Acct: [id number] Name: ANNAMARIASYLVIA S Rep #: [id number] : 1955 F 61 From: Yecenia Khan MD PCP: Lorena Talbot MD Status: REG CLI Study: Chest PA and Lateral Date of Exam: 07/02/16 Exam# [id number] Ordering Dr: Lorena Talbot MD STUDY: X-RAY [...] MD at 15:38 EST , Service support [phone], CC: Lorena Talbot MD Manager Fleet: Signed 10-Apr-2016 Vascular Test/LEAS/UEAS Result: Comments: See Note; NOTES: [facility] Cardiovascular Services [address] [place] [address] Verdana 4d Lower Ext Art Exam w/o Exercis MR#: [id number] Acct: [id number] Name: ALICIA GUADARRAMACALLUM Kelley Rep #: [id number] : 1955 61 From: Jim Martin MD [...] bilaterally. Jim Vidal MD T: NTS JOB: [id number] 04/10/16 1306 <Electronically signed by Jim Martin MD> Date Jim Martin MD CC: Lorena Talbot MD Date Dictated: 04/08/161722 Date Transcribed: 04/08/161722 Manager Fleet: Signed 10-Mar-2016 Bilat Scrn Digital AND CAD Result: Comments: See Note; NOTES: [facility] Imaging Services [address] [place] [address] Verdana 4d Bilat Scrn Digital AND CAD MR#: [id number] Acct: [id number] Name: SYLVIA RAMIREZ Rep #: [id number] : 1955 F 60 From: Tobin Sawant MD PCP: Lorena Talbot MD Status: REG CLI Study: Bilat Scrn Digital AND CAD Date of Exam: 03/10/16 Exam# [id number] Ordering Dr: Jose Pérez ul DO MAMMOGRAPHY [...] will be sent to the [facility] by the facility within 30 days. Approximately 10% of breast cancers are not detected by mammography. A normal mammogram should not delay biopsy of a clinically suspicious abnormality. [id number] Elect ronically Signed: Tobin Sawant MD at 11:03 EST Tel [phone], Service support [phone], CC: Lorena aTlbot MD; Yomi Pérez DO Manager Fleet: Signed 10-Mar-2016 Dexa Bone Density Study (HP) Result: Comments: See Note; NOTES: [facility] Imaging Services [address] [place] [address] Verdana 4d Dexa Bone Density Study (HP) MR#: [id number] Acct: [id number] Name: MARCELA RAMIREZ Rep #: [id number] : 1955 F 60 From: Tobin Sawant MD PCP: Lorena Talbot MD Status: REG CLI Study: Dexa Bone Density Study () Date of Exam: 03/10/16 Exam# [id number] Ordering Dr: KODY NESBITT STUDY: DUAL ENERGY [...] Tobin Sawant MD at 10:18 EST Tel [phone], Service support [phone], CC: Lorena Talbot MD; KODY NESBITT Manager Fleet: Signed 07-Jul-2015 History and Physical Exam Result: Comments: See Note; NOTES: [facility] Medical Records Department [address] [place] [address] History and Physical 07/07/15 1809 MR#: [id number] Acct: [id number] Name: SYLVIA RAMIREZ Rep #: [id number] : 1955 60 From: Lucy Figueroa MD [...] presented to the emergency room [facility] of left upper extremity soreness, [...] [Vitamin 2,000 unit PO DAILY 07/07/15 D] [place]-3 Fatty Acids/Fish Oil 2 each PO DAILY 07/07/15 [[place] 3 1,000 mg Softgel] Turmeric [Turmeric Root] [...] 92.3 H Lymph % (Auto) 4.1 L [place] % (Auto) 2.2 Eos % (Auto) 1.0 [...] Subcu Lovenox. This note was generated with Cardinal Midstreamation software. It may contain incorrect words, spelling, and punct uation that were not noted in checking the note before signing. 07/07/15 1818 <Electronically signed by Lucy Figueroa MD> Date Lucy Figueroa MD Cosigner Signature (if applicable): Date CC: Lorena Talbot MD; Lucy Figueroa Signed 18-Apr-2015 Operative Report Result: Comments: See Note; NOTES: [facility] Medical Records Department [address] [place] [address] Operative Report MR#: [id number] Acct: [id number] Name: KIRSTEN RAMIREZ Rep #: [id number] : 1955 60 From: Galileo Quinones DPM PCP: Lorena Talbot MD Status: [facility] DATE OF SERVICE: DATE OF SURGERY: April [...] injections, immobilization, anti- inflammatories, activity modifications; phelps jovanny, still has pain chronic pian to the [...] transverse intermetatarsal ligament. This was carefully release dMontrell There was noted to be a large [...] needed. Galileo Quinones DPM T: KRISHAN JOB: [id number] 04/18/15 0757 <Electronic ally signed by Galileo Quinones DPM> Date Galileo Quinones DPM Cosigner Signature (If Indicated): Date CC: Lorena Talbot MD; Galileo Quinones DPM Date Dictated: 04/12/151647 Date Transcribed: 04/12/151647 Manager Fleet: Signed 12-Apr-2015 Discharge Instruction Result: Comments: See Note; NOTES: [facility] Medical Records Department [address] [place] [address] Instructions for Home/Discharge Instructions 04/12/15 1639 MR#: [id number] Acct: [id number] Name: SYLVIA RAMIREZ Rep #: [id number] : 1955 60 From: Galileo Quinones DPM PCP: Lorena Talbot MD Status: [facility] [place] Diet: Light diet - advance as [...] and Lateral Result: Comments: See Note; NOTES: [facility] Imaging Services [address] [place] [address] Jovannydana 4d Chest PA and Lateral MR#: [id number] Acct: [id number] Name: SYLVIA RAMIREZ Rep #: [id number] : 1955 F 60 From: Jose Fagan MD PCP: Lorena Talbot MD Status: PRE IDC Study: Chest PA and Lateral Date of Exam: 04/04/15 Exam# [id number] Ordering Dr: Virgen Quinones DPM STUDY: X-RAY [...] FACR at 13:58 EST , Service support [phone], RAD/Chest PA and Lateral IMPRESSION: No signs of acute cardiopulmonary disease Electronically Signed: Jose Fagan MD, FACR at 13:58 EST , Service support [phone], CC: Lorena Talbot MD; Galileo Quinones DPM Manager Fleet: Signed 29-Mar-2015 EKG ([id number]) Comments: nsr no acute chg poor R wave progression Result: [MEASUREMENTS ANALYSIS] Date of Test: 03/29/2015 13:38:32; Heart Rate: 73; [place] Interval: 180; QRS: 88; QT Interval: 380; Corrected QT Interval (QTc): 402; P Wave [place]: 33; QRS Wave [place]: 30; T Wave [place]: 29; Blood Pressure: 120/78 [ECG DIAGNOSTIC STATEMENTS] Date of Test: 03/29/2015 13:38:32; Summary: Sinus Rhythm WITHIN NORMAL LIMITS 28-Mar-2015 Inital Evaluation - PT Result: Comments: See Note; NOTES: [facility] [address] [place] [address] Fax REHABILITATION [facility] INITIAL EVALUATION MR#: [id number] Acct: [id number] Name: SYLVIA RAMIREZ Rep #: [id number] : 1955 60 From: Gurdeep Carson Referring Dr.: Galileo Quinones DPM Status: REG RCR Ins urance: [facility] Date: Patient's Visit Information SYLVIA RAMIREZ [...] to be FAXED BACK to us at [phone] for Medicare purposes. Please let me know if there are questions or concerns regarding this plan of care. Physician Signature: Date: <Electronically signed by Gurdeep Carson > 03/28/15 1140 CC: Lorena Talbot MD; Galileo Quinones DPM [facility] Jeanne d For Medicare only, by signing this I certify the plan of care. Physicians Signature Date 08-Mar-2015 Unilat Rt Scrn Digital AND CAD Result: Comments: See Note; NOTES: [facility] Imaging Services [address] [place] [address] Verdana 4d Unilat Rt Scrn Digital AND CAD MR#: [id number] Acct: [id number] Na me: SYLVIA RAMIREZ Rep #: [id number] : 1955 F 59 From: Tobin Sawant MD PCP: Lorena Talbot MD Status: REG CLI Study: Unilat Rt Scrn Digital AND CAD Date of Exam: 03/08/15 Exam# [id number] Ordering Dr: Pat Buchanan MAMMOGRAPHY - UNILATERAL [...] delay biopsy of a clinically suspicious abnormality. [id number] Electronically Signed: Tobin Sawant MD 201 09/03/12 at 11:11 EST Tel [phone], Service support [phone], CC: Pat Buchanan; Lorena Talbot MD Manager Fleet: Signed 04-Mar-2015 Lower Ext/No Jt/w/o Result: Comments: See Note; NOTES: [facility] Imaging Services [address] [place] [address] Verdana 4d Lower Ext/No Jt/w/o MR#: [id number] Acct: [id number] Name: Cirilo RAMIREZ Rep #: [id number] : 1955 F 59 From: Jose Fagan MD PCP: Lorena Talbot MD Status: REG CLI Study: Lower Ext/No Jt/w/o Date of Exam: 03/04/15 Exam# [id number] Ordering Dr: Ward Quinones DPM STUDY: MRI [...] at 10:47 EST Tel , Service support [phone], CC: Lorena Talbot MD; Galileo Quinones DPM Manager Fleet: Signed 15-Jan-2015 Breast Limited Unilateral Result: Comments: See Note; NOTES: [facility] Imaging Services [address] [place] [address] Ultrasound Report MR#: [id number] Acct: [id number] Name: SYLVIA RAMIREZ Rep #: [id number] : 1955 F 59 From: Tobin Sawant MD PCP: Lorena Talbot MD Status: REG CLI Study: Breast Limited Unilateral Date of Exam: 01/15/15 Exam# [id number] Ordering Dr: Pat Buchanan STUDY : ULTRASOUND [...] Tobin Sawant MD at 13:27 EDT Tel [phone], Service support [phone], CC: Pat Buchanan ; Lorena Talbot MD Manager Fleet: Signed 01-Jan-2015 Breast Limited Unilateral Result: Comments: See Note; NOTES: [facility] Imaging Services [address] [place] [address] Ultrasound Report MR#: [id number] Acct: [id number] Name: SYLVIA RAMIREZ Rep #: [id number] : 1955 F 59 From: Frantz Rojas MD PCP: Lorena Talbot MD Status: REG CLI Study: Breast Limited Unilateral Date of Exam: 01/01/15 Exam# [id number] Ordering Dr: Pat Buchanan STUDY: ULT RASOUND [...] at 15:39 EDT Tel , Service support [phone], CC: Pat Buchanan; Lorena Talbot MD Manager Fleet: Signed 01-Jan-2015 Unilat Lt Diag Digital AND CAD Result: Comments: See Note; NOTES: [facility] Imaging Services [address] [place] [address] Breast Imaging Report MR#: [id number] Acct: [id number] Name: SYLVIA RAMIREZ Rep #: [id number] : 1955 F 59 From: Frantz Rojas MD PCP: Lorena Talbot MD Status: REG CLI Study: Unilat Lt Diag Digital AND CAD Date of Exam: 01/01/15 Exam# [id number] Ordering Dr: Pat Buchanan AMMOGRAPHY - UNILATERAL [...] t 15:34 EDT Tel , Service support [phone], CC: Pat Buchanan; Lorena Talbot MD Manager Fleet: Signed 21-Feb-2014 Abhay Moraes Digital & CAD Result: Comments: See Note; NOTES: [facility] Imaging Services [address] [place] [address] Breast Imaging Report MR#: [id number] Acct: [id number] Name: SYLVIA RAMIREZ Rep #: [id number] : 1955 F 58 From: Tobin Sawant MD PCP: Lorena Talbot MD Status: REG CLI Exam# [id number] Ordering Dr: Lorena Talbot MD MAMMOGRAPHY - [...] MD 201 08/03/28 at 9:41 EDT Tel [phone], Service support [phone], CC: Lorena Talbot MD Manager Fleet: Signed 21-Feb-2014 Dexa Bone Density Study (HP) Result: Comments: See Note; NOTES: [facility] Imaging Services [address] [facility] [place] [address] Bone Density Report MR#: [id number] Acct: [id number] Name: SYLVIA RAMIREZ Rep #: [id number] : 1955 F 58 From: Tobin Sawant MD PCP: Lorena Talbot MD Status: REG CLI Study: Dexa Bone Density Study () Date of Exam: 02/21/14 Exam# [id number] Ordering Dr: Lorena Talbot MD STUDY: DUAL [...] Tobin Sawant MD at 12:35 EDT Tel [phone], Service support [phone], CC: Lorena Talbot MD Manager Fleet: Signed 08-Feb-2014 PT Discharge Summary Result: Comments: See Note; NOTES: [facility] [address] [place] [address]. [address] [place], [place] [address] Fax REHABILITATION SERVICES DISCHARGE SUMMARY MR#: [id number] Acct: [id number] Name: SYLVIA RAMIREZ Rep #: [id number] : 1955 58 From: Karrie Chris Referring : Haile Aguilera DO Status: REG RCR Eval Date: Discha rge Date: DATE OF SERVICE: Date of [...] appropriate she be discharged from [facility] and continue independent home exercise progra m. The patient was encouraged to call if she does have any questions or concerns. Karrie Chris DPT T: NTS JOB: [id number] <Electronically signed by Karrie Chris > 02/08/14 0705 CC: Signed 02-Jan-2014 Inital Evaluation - PT Result: Comments: See Note; NOTES: [facility] [facility] [place], [place] [address] Fax REHABILITATION SERVICES INITIAL EVALUATION MR#: [id number] Acct: [id number] Name: SYLVIA RAMIREZ Rep #: [id number] : 1955 58 From: Karrie Chris Referring Dr.: Haile Aguilera DO Status: REG R Insurance: [facility] Eval Date: DATE OF SERVICE: 01/01/2014 [...] On Wednesday she is leaving for the [employer] and will be gone for approximately 2 [...] with decreased pain. Karrie Chris DPT T: [facility] JOB: [id number] <Electronically signed by Karrie Chris > 01/02/14907 [...] Active Living Situation Comments: single lives alone, [facility] [place] [phone] dtr Status: Active No Drug Use Status: [...] 0.00 cm Results Date Description Value Details 04-Vfe-584499:49 CBC W/Diff, Automated Comments: [facility] [address] [place], [place], [id number] SMEAR COMMENT (Normal) Comments: LYMPHOPENIA NOTED Absolute [...] 4.2-5.4 WBC 6.0 K/mm3 (Normal) Range: 4.4-11.0 87-Crl-424154:49 CPK Total, Creatine Kinase Comments: [facility] [address] [place], [address] CPK TOTAL 1954 U/L (Abnormal) Range: 26-192 21-Avn-241853:49 Liver Profile Comments: [address] [place], [place], [address] D BILI 0.14 mg/dL (Normal) Range: 0.00-0.30 T BILI 0.60 mg/dL (Normal) Range: 0.20-1.00 ALT 92 U/L (Abnormal) Range: 13-56 ALK P 61 U/L (Normal) Range: 45-117 AST 76 U/L (Abnormal) Range: 15-37 GLOB 3.7 g/dL (Normal) Range: 2.2-4.2 ALB 3.6 g/dL (Normal) Range: 3.2-5.0 T PROT 7.3 g/dL (Normal) Range: 6.4-8.2 69-Pci-318616:49 Serum Creatinine AND GFR Comments: [address] [place], [address] EST GFR - AA 137 mL/min (Normal) Comments: GFR Calc EST GFR 113 mL/min (Normal) Comments: Non- GFR Calc CREAT,SERUM 0.57 mg/dL (Normal) Range: 0.55-1.02 Comments: The validity of the calculated GFR AND GFRAA in patients over70 years has not been determined. Clinical correlation isessential. 65-Ktm-909569:35 Methymalonic Acid, Serum Comments: PATIENT NOT FASTINGPERFORMED BY: [employer] [id number] BY: [facility] [id number] ([id number]) Disclaimer: SPRCS (Normal) Comments: This test was developed and its performance characteristicsdetermined by [employer]. It has not been cleared or approvedby the Food and Drug Administration. Methylmalonic Acid, Serum 82 nmol/L (Normal) Range: 0-378 27-Eda-101659:35 Vitamin B-12 Comments: PATIENT NOT FASTINGPERFORMED BY: [employer] [address] [id number] BY: [employer] [facility] [id number] (cyanocobalamin) (00666) Vitamin B12 852 pg/mL (Normal) Range: 232-1245 90-Aim-425697:35 HELICOBACTER PYLORI Comments: PATIENT NOT FASTINGPERFORMED BY: [facility] [id number] BY: [employer] [facility] [id number] ANTIBODY (29833) H. pylori, IgG Abs 0.17 {Index_Value} (Normal) Range: 0.00-0.79 Comments: Negative <0.80 Equivocal 0.80 - 0.89 Positive >0.89 49-Oua-635878:35 Creatine Kinase Total Comments: PATIENT NOT FASTINGPERFORMED BY: [employer] [id number] BY: [employer] [id number] (52204) Creatine Kinase,Total 425 U/L (Abnormal) Range: 24-173 46-Gwd-824637:35 C-Reactive Protein Comments: PATIENT NOT FASTINGPERFORMED BY: [facility] Imutdhbcbb4335 [facility] [id number] BY: [facility] CenterJxvahz8423 [facility] [id number] (02857) C-Reactive Protein, Quant 6.0 mg/L (Abnormal) Range: 0.0-4.9 30-Nov-20172:50 Basic Metabolic Profile (BMP) Comments: [facility] [address] [place], [address] GAP 10 (Normal) Range: 5-15 CO2 26.0 [...] A.D.A. criteria.Please note revised GLUCOSE reference range bjkidqkpr48/02/2018. 30-Nov-20172:50 CBC W/Diff, Automated Comments: [facility] [address] [place], [place], [id number] SMEAR COMMENT SCANNED (Normal) Absolute Lymph 0.21 [...] 4.2-5.4 WBC 3.5 K/mm3 (Abnormal) Range: 4.4-11.0 30-Nov-20172:50 Lipase Comments: [facility] [address] [place], [place], [id number] LIPASE 171 U/L (Normal) Range: 73-393 :50 Liver Profile Comments: [facility] Hzaocgjvze3356 [facility]. [place], [place], [address] D BILI 0.27 mg/dL (Normal) Range: 0.00-0.30 T BILI 1.10 mg/dL (Abnormal) Range: 0.20-1.00 ALT 36 U/L (Normal) Range: 13-56 ALK P 46 U/L (Normal) Range: 45-117 AST 32 U/L (Normal) Range: 15-37 GLOB 3.9 g/dL (Normal) Range: 2.2-4.2 ALB 3.6 g/dL (Normal) Range: 3.2-5.0 T PROT 7.5 g/dL (Normal) Range: 6.4-8.2 64-Ihg-421439:27 CBC-Complete Blood Cnt No Diff Comments: [address] [place], [place], [address] MPV 10.2 fL (Normal) Range: 6.2-12.0 PLT [...] 4.2-5.4 WBC 4.0 K/mm3 (Abnormal) Range: 4.4-11.0 87-Gqk-380238:27 CPK Total, Creatine Kinase Comments: [address] [place], [place], [address] CPK TOTAL 577 U/L (Abnormal) Range: 26-192 30-Izl-551931:27 Liver Profile Comments: [address] [place], [address] D BILI 0.16 mg/dL (Normal) Range: 0.00-0.30 T BILI 0.90 mg/dL (Normal) Range: 0.20-1.00 ALT 36 U/L (Normal) Range: 13-56 ALK P 43 U/L (Abnormal) Range: 45-117 AST 33 U/L (Normal) Range: 15-37 GLOB 3.7 g/dL (Normal) Range: 2.2-4.2 ALB 3.8 g/dL (Normal) Range: 3.2-5.0 T PROT 7.5 g/dL (Normal) Range: 6.4-8.2 98-Ips-586362:27 Serum Creatinine AND GFR Comments: [facility] [address] [place], [place], [address] EST GFR - AA 163 mL/min (Normal) Comments: GFR Calc EST GFR 135 mL/min (Normal) Comments: Non- GFR Calc CREAT,SERUM 0.49 mg/dL (Abnormal) Range: 0.55-1.02 Comments: The validity of the calculated GFR AND GFRAA in patients over70 years has not been determined. Clinical correlation isessential. 20-Rjn-674615:23 CBC W/Diff, Automated Comments: [facility] [address] [place], [address] BASO STIP RARE (Normal) PLT EST ADEQUATE [...] 4.2-5.4 WBC 4.2 K/mm3 (Abnormal) Range: 4.4-11.0 65-Jyo-55693:34 CBC-Complete Blood Cnt No Diff Comments: [facility] [address] [place], [place], [address] MPV 10.1 fL (Normal) Range: 6.2-12.0 PLT [...] 4.4-11.0 :34 CPK Total, Creatine Kinase Comments: [facility] [address] [place], [place], [address] CPK TOTAL 909 U/L (Abnormal) Range: 26-192 :34 Liver Profile Comments: [address] [place], [place], [address] D BILI 0.16 mg/dL (Normal) Range: 0.00-0.30 T BILI 0.70 mg/dL (Normal) Range: 0.20-1.00 ALT 49 U/L (Normal) Range: 13-56 ALK P 52 U/L (Normal) Range: 45-117 AST 44 U/L (Abnormal) Range: 15-37 GLOB 3.8 g/dL (Normal) Range: 2.2-4.2 ALB 3.5 g/dL (Normal) Range: 3.2-5.0 T PROT 7.3 g/dL (Normal) Range: 6.4-8.2 :34 Serum Creatinine AND GFR Comments: [facility] [address] [place], [address] EST GFR - AA 192 mL/min (Normal) [...] CORE,TOT Negative (Normal) Comments: Performed at: - [facility] [id number] Director: Arsh Cuellar PhD, Phone: [phone] :[phone] Hepatitis C Antibodies Comments: Is Patient Fasting? [facility] (refer to report for specific site)refer to report for address and phone number HEP C AB 0.1 {s/co_ratio} (Normal) Range: 0.0-0.9 Comments: Negative: < 0.8 Indeterminate: 0.8 - 0.9 Positive: > 0.9 The CDC recommends that a positive HCV antibody result be followed up with a HCV Nucleic Acid Amplification test (208893). 20-Keu-52854:23 Immunoglobulins G/A/M Comments: Is Patient Fasting? [facility] (refer to report for specific site)refer to report for address and phone number IMMUNOGL M 202 mg/dL (Normal) Range: 26-217 IMMUNO A 165 mg/dL (Normal) Range: 87-352 IMMUNO G 1092 mg/dL (Normal) Range: 700-1600 90-Vmf-165773:18 CBC-Complete Blood Cnt No Diff Comments: [facility] [address] [facility] [address] [place], [place], [address] MPV 11.1 fL (Normal) Range: 6.2-12.0 PLT [...] 4.2-5.4 WBC 4.9 K/mm3 (Normal) Range: 4.4-11.0 68-Rgh-074792:18 Liver Profile Comments: [facility] [address] [facility] [address] [place], [place], [address] D BILI 0.13 mg/dL (Normal) Range: 0.00-0.30 T BILI 0.60 mg/dL (Normal) Range: 0.20-1.00 ALT 56 U/L (Normal) Range: 13-56 Comments: Please note revised ALT reference range eyysculxp89/28/2018. ALK P 49 U/L (Normal) Range: 45-117 AST 57 U/L (Abnormal) Range: 15-37 GLOB 3.6 g/dL (Normal) Range: 2.2-4.2 ALB 3.6 g/dL (Normal) Range: 3.2-5.0 T PROT 7.2 g/dL (Normal) Range: 6.4-8.2 79-Ckk-721144:18 Serum Creatinine AND GFR Comments: [facility] [address] [place], [id number] EST GFR - AA 164 mL/min (Normal) Comments: GFR Calc EST GFR 135 mL/min (Normal) Comments: Non- GFR Calc CREAT,SERUM 0.49 mg/dL (Abnormal) Range: 0.55-1.02 Comments: The validity of the calculated GFR AND GFRAA in patients over70 years has not been determined. Clinical correlation isessential. :40 CBC-Complete Blood Cnt No Diff Comments: [facility] [address] [place], [id number] MPV 11.0 fL (Normal) Range: 6.2-12.0 PLT [...] 4.4-11.0 :40 CPK Total, Creatine Kinase Comments: [facility] [address] [place], [address] CPK TOTAL 1418 U/L (Abnormal) Range: 26-192 :40 Liver Profile Comments: [facility] [address] [place], [address] D BILI 0.12 mg/dL (Normal) Range: 0.00-0.30 T BILI 0.60 mg/dL (Normal) Range: 0.20-1.00 ALT 59 U/L (Abnormal) Range: 13-56 Comments: Please note revised ALT reference range rkjlawggn75/28/2018. ALK P 48 U/L (Normal) Range: 45-117 AST 60 U/L (Abnormal) Range: 15-37 GLOB 3.6 g/dL (Normal) Range: 2.2-4.2 ALB 3.4 g/dL (Normal) Range: 3.2-5.0 T PROT 7.0 g/dL (Normal) Range: 6.4-8.2 86-Hbm-38697:40 Serum Creatinine AND GFR Comments: [facility] [address] [place], [place], [address] EST GFR - AA 201 mL/min (Normal) Comments: GFR Calc EST GFR 166 mL/min (Normal) Comments: Non- GFR Calc CREAT,SERUM 0.41 mg/dL (Abnormal) Range: 0.55-1.02 Comments: The validity of the calculated GFR AND GFRAA in patients over70 years has not been determined. Clinical correlation isessential. 62-Pgj-896245:31 CBC-Complete Blood Cnt No Diff Comments: [facility] [address] [place], [place], [address] MPV 10.5 fL (Normal) Range: 6.2-12.0 PLT [...] 4.2-5.4 WBC 5.0 K/mm3 (Normal) Range: 4.4-11.0 61-Nsx-385347:31 CPK Total, Creatine Kinase Comments: [facility] [address] [place], [address] CPK TOTAL 924 U/L (Abnormal) Range: 26-192 50-Tnz-154161:31 Liver Profile Comments: [facility] [address] [place], [address] D BILI 0.12 mg/dL (Normal) Range: 0.00-0.30 T BILI 0.70 mg/dL (Normal) Range: 0.20-1.00 ALT 49 U/L (Normal) Range: 12-78 ALK P 45 U/L (Normal) Range: 45-117 AST 49 U/L (Abnormal) Range: 15-37 GLOB 4.0 g/dL (Normal) Range: 2.2-4.2 ALB 3.6 g/dL (Normal) Range: 3.4-5.0 Comments: Please note revised Albumin AND Globulin reference rangeeffective 2017. T PROT 7.6 g/dL (Normal) Range: 6.4-8.2 06-Dzc-029557:31 Serum Creatinine AND GFR Comments: [facility] [address] [place], [id number] EST GFR - AA 142 mL/min (Normal) Comments: GFR Calc EST GFR 117 mL/min (Normal) Comments: Non- GFR Calc CREAT,SERUM 0.56 mg/dL (Normal) Range: 0.55-1.02 Comments: The validity of the calculated GFR AND GFRAA in patients over70 years has not been determined. Clinical correlation isessential. 02-Wmg-49923:18 CBC-Complete Blood Cnt No Diff Comments: [facility] [address] [place], [address] MPV 10.6 fL (Normal) Range: 6.2-12.0 PLT [...] 4.4-11.0 :18 CPK Total, Creatine Kinase Comments: [facility] [address] [facility] [address] [place], [place], [address] CPK TOTAL 1718 U/L (Abnormal) Range: 26-192 :18 Liver Profile Comments: [facility] [address] [place], [place], [address] D BILI 0.14 mg/dL (Normal) Range: 0.00-0.30 [...] 6.4-8.2 :18 Serum Creatinine AND GFR Comments: [facility] [address] [place], [place], [address] EST GFR - AA 175 mL/min (Normal) Comments: GFR Calc EST GFR 145 mL/min (Normal) Comments: Non- GFR Calc CREAT,SERUM 0.46 mg/dL (Abnormal) Range: 0.55-1.02 Comments: The validity of the calculated GFR AND GFRAA in patients over70 years has not been determined. Clinical correlation isessential. 95-Czp-518869:43 Basic Metabolic Profile (BMP) Comments: [facility] [address] [place], [place], [address] GAP 9 (Normal) Range: 5-15 CO2 26.0 [...] 7-18 GLU 97 mg/dL (Normal) Range: 70-110 :43 CBC W/Diff, Automated Comments: [facility] [address] [place], [place], [address] OVALOCYTE RARE (Normal) MACROCYTE 1+ (Normal) PLT [...] 4.2-5.4 WBC 5.5 K/mm3 (Normal) Range: 4.4-11.0 18-Lbp-690574:43 CPK Total, Creatine Kinase Comments: [facility] [address] [place], [place], [address] CPK TOTAL 1846 U/L (Abnormal) Range: 26-192 34-Ecz-340089:43 Liver Profile Comments: [facility] [address] [place], [place], [address] D BILI 0.17 mg/dL (Normal) Range: 0.00-0.30 T BILI 0.70 mg/dL (Normal) Range: 0.20-1.00 ALT 60 U/L (Normal) Range: 12-78 ALK P 55 U/L (Normal) Range: 45-117 AST 69 U/L (Abnormal) Range: 15-37 GLOB 3.4 g/dL (Normal) Range: 2.3-3.5 ALB 3.7 g/dL (Normal) Range: 3.4-5.0 T PROT 7.1 g/dL (Normal) Range: 6.4-8.2 96-Cgk-206931:26 Basic Metabolic Profile (BMP) Comments: [facility] [address] [place], [place], [address] GAP 6 (Normal) Range: 5-15 CO2 27.0 [...] 7-18 GLU 96 mg/dL (Normal) Range: 70-110 99-Daq-014017:26 CBC W/Diff, Automated Comments: [facility] [address] [place], [place], [address] Absolute Lymph 0.33 {X10_3/ul} (Abnormal) Range: 0.83-4.51 [...] 4.2-5.4 WBC 5.2 K/mm3 (Normal) Range: 4.4-11.0 :26 CPK Total, Creatine Kinase Comments: [facility] [address] [place], [place], [address] CPK TOTAL 1661 U/L (Abnormal) Range: 26-192 95-Qrx-825960:26 Liver Profile Comments: [address] [place], [place], [address] D BILI 0.12 mg/dL (Normal) Range: 0.00-0.30 T BILI 0.60 mg/dL (Normal) Range: 0.20-1.00 ALT 54 U/L (Normal) Range: 12-78 ALK P 50 U/L (Normal) Range: 45-117 AST 58 U/L (Abnormal) Range: 15-37 GLOB 3.9 g/dL (Abnormal) Range: 2.3-3.5 ALB 3.6 g/dL (Normal) Range: 3.4-5.0 T PROT 7.5 g/dL (Normal) Range: 6.4-8.2 9-Tny-365891:44 CBC W/Diff, Automated Comments: ADD TO 0503:N870LBH TO 0503:X580Uelwaxu[address] [place], [place], [address] SMEAR COMMENT COMMENT (Normal) Comments: SLIDE SCANNED [...] 4.2-5.4 WBC 5.4 K/mm3 (Normal) Range: 4.4-11.0 :42 CPK Total, Creatine Comments: ADD CPK/BMP/JILHHQR0-9-FJaceqjaAdena [facility] [address] [place], [address] Kinase CPK TOTAL 1438 U/L (Abnormal) Range: 26-192 8-Ptk-976384:42 CRP Comments: ADD CPK/BMP/DRFEGHQ2-8-HZexejivAdena [facility] [address] [place], [address] C-REACTIVE PROT 4.67 mg/L (Abnormal) Range: 0.0-3.0 Comments: C-Reactive Protein (CRP) provides useful information for thediagnosis, therapy and monitoring of inflammatory processesand associated diseases. For the evaluation of Relative Riskfor Cardiovascular Dise ase, a High Sensitivity CRP (HSCRP)should be ordered. 7-Mhd-312408:42 Erythrocyte Sed Rate Comments: [facility] [address] [place], [address] SED RATE 39 mm/h (Abnormal) Range: 0-30 6-Jsj-534166:42 Hepatitis ABC Profile Comments: [facility] (refer to report for specific site)refer to report for address and phone number COMMENT Comment (Normal) Comments: Non reactive HCV antibody screen is consistent with no HCVinfection, unless recent infection is suspected or otherevidence exists to indicate HCV infection.Performed at: [facility] [id number] Director: Arsh Cuellar PhD, Phone: [phone] HCV Ab <0.1 {s/co_ratio} (Normal) Range: 0.0-0.9 Hep B Michael AB Reactive (Normal) Comments: Non Reactive: Inconsistent with immunity, less than 10 mIU/mL Reactive: Consistent with immunity, greater than 9.9 mIU/mL HEP B CORE,TOT Negative (Normal) HB CORE QT89153 Negative (Normal) HB SURF AG Negative (Normal) HEP A AB,T.6726 Positive (Abnormal) HEP A IgM 6734 Negative (Normal) 92-Ggn-614381:35 Basic Metabolic Profile (BMP) Comments: [facility] [address] [place], [address] GAP 7 (Normal) Range: 5-15 CO2 26.0 [...] 7-18 GLU 105 mg/dL (Normal) Range: 70-110 15-Dyx-833372:35 CBC W/Diff, Automated Comments: [facility] [address] [place], [address] Absolute Lymph 0.28 {X10_3/ul} (Abnormal) Range: 0.83-4.51 [...] 4.2-5.4 WBC 5.3 K/mm3 (Normal) Range: 4.4-11.0 95-Goz-758866:35 CPK Total, Creatine Kinase Comments: [facility] [address]ts[address] [facility] [place], [address] CPK TOTAL 2479 U/L (Abnormal) Range: 26-192 43-Ijj-708482:35 Liver Profile Comments: [facility] [address] [place], [address] D BILI 0.17 mg/dL (Normal) Range: 0.00-0.30 T BILI 0.90 mg/dL (Normal) Range: 0.20-1.00 ALT 105 U/L (Abnormal) Range: 12-78 ALK P 52 U/L (Normal) Range: 45-117 AST 102 U/L (Abnormal) Range: 15-37 GLOB 3.6 g/dL (Abnormal) Range: 2.3-3.5 ALB 3.5 g/dL (Normal) Range: 3.4-5.0 T PROT 7.1 g/dL (Normal) Range: 6.4-8.2 5-Zxx-495799:33 Basic Metabolic Profile (BMP) Comments: [facility] [address] [place], [address] GAP 9 (Normal) Range: 5-15 CO2 27.0 [...] 7-18 GLU 94 mg/dL (Normal) Range: 70-110 6-Rrc-481734:33 CBC W/Diff, Automated Comments: [facility] [address] [place], [address] ANISO 2+ (Normal) Absolute Lymph [...] 4.2-5.4 WBC 4.8 K/mm3 (Normal) Range: 4.4-11.0 0-Yhl-558886:33 CPK Total, Creatine Kinase Comments: [facility] [address] [place] [address], [address] CPK TOTAL 2987 U/L (Abnormal) Range: 26-192 3-Bmf-763025:33 Liver Profile Comments: [facility] [address] [place], [place], [address] D BILI 0.09 mg/dL (Normal) Range: 0.00-0.30 T BILI 0.60 mg/dL (Normal) Range: 0.20-1.00 ALT 120 U/L (Abnormal) Range: 12-78 ALK P 62 U/L (Normal) Range: 45-117 AST 115 U/L (Abnormal) Range: 15-37 GLOB 3.6 g/dL (Abnormal) Range: 2.3-3.5 ALB 3.5 g/dL (Normal) Range: 3.4-5.0 T PROT 7.1 g/dL (Normal) Range: 6.4-8.2 80-Isj-628234:54 Basic Metabolic Profile (BMP) Comments: [facility] [address] [place], [place], [address] GAP 11 (Normal) Range: 5-15 CO2 25.0 [...] 7-18 GLU 102 mg/dL (Normal) Range: 70-110 87-Dga-736405:54 CBC W/Diff, Automated Comments: [facility] [address] [place], [place], [id number] POIK RARE (Normal) PLT EST ADEQUATE (Normal) [...] 4.2-5.4 WBC 5.1 K/mm3 (Normal) Range: 4.4-11.0 :54 CPK Total, Creatine Kinase Comments: [address], [address] CPK TOTAL 1840 U/L (Abnormal) Range: 26-192 28-Ckn-213038:54 Liver Profile Comments: [address], [address] D BILI 0.13 mg/dL (Normal) Range: 0.00-0.30 T BILI 0.50 mg/dL (Normal) Range: 0.20-1.00 ALT 70 U/L (Normal) Range: 12-78 ALK P 56 U/L (Normal) Range: 45-117 AST 76 U/L (Abnormal) Range: 15-37 GLOB 3.7 g/dL (Abnormal) Range: 2.3-3.5 ALB 3.5 g/dL (Normal) Range: 3.4-5.0 T PROT 7.2 g/dL (Normal) Range: 6.4-8.2 :55 TEMPORAL ARTERY BX See Note (Normal) Comments: [address], [address] Comments: Patient: SYLVIA RAMIREZ : 1955 (60/F) Acct Num: [id number] Phys: Lyndon Saavedra MD Unit Num: [id number] Loc: [facility] Specimen: [id number] Received: 01/20/161813 Spec Type : TEMPORAL TISSUES [...] fixation serial sectioning. / AM:rickie 01/21/16 TC:5 CPT:65345, 74635 HEADER OPERATION: Left temporal artery biopsy PRE-OP DIAGNOSIS: Increased sed. rate; possible temporal arteri tis; S/P left temporal artery biopsy TISSUE SUBMITTED: Portion of left temporal artery MICROSCOPIC DESCRIPTION Slides are reviewed. MICROSCOPIC DIAGNOSIS Left temporal artery, biopsy: Negative for giant cell arteritis. Mild intimal hyperplasia. SJ:rickie 01/22/16 Signed Hi Hernandez 01/22/16 <signature on file> 15-Jnx-95852:05 CBC W/Diff, Automated Comments: Order Date: 01/10/16Order Date: 01/10/16[facility] [address] [place], [place], [address] SMEAR COMMENT SCANNED (Normal) Absolute Lymph 0.26 [...] :05 CRP Comments: Order Date: 01/10/16Order Date: 01/10/16[facility] [address] [place], [place], [address] C-REACTIVE PROT 192.00 mg/L (Abnormal) Range: 0.0-3.0 Comments: C-Reactive Protein (CRP) provides useful information for thediagnosis, therapy and monitoring of inflammatory processesand associated diseases. For the evaluation of Relative Riskfor Cardiovascular Dise ase, a High Sensitivity CRP (HSCRP)should be ordered. :05 Erythrocyte Sed Rate Comments: Order Date: 01/10/16Order Date: 01/10/16[facility] [address] [place], [address] SED RATE 79 mm/h (Abnormal) Range: 0-30 :46 Basic Metabolic Profile (BMP) Comments: [facility] [address] [place], [address] GAP 3 (Abnormal) Range: 5-15 CO2 27.0 [...] <126 mg/dLsuggests IMPAIRED HOMEOSTASIS per A.D.A. criteria. 95-Ezu-163152:46 CBC W/Diff, Automated Comments: [facility] [address] [place], [place], [address] ANISO 1+ (Normal) PLT EST ADEQUATE (Normal) [...] : NEUROMA - See Note (Normal) Comments: [facility] [address] [place], [address] 00 [facility]/TRAUMATIC Comments: Patient: SYLVIA RAMIREZ : 1955 (60/F) Acct Num: [id number] Phys: Stacie PORTILLOFalling Waters Unit Num: [id number] [place] [facility] [place]: [id number] Received: 04/15/15 - 0755 Spec Type: N EUROMA TISSUES TISSUES: GROSS DESCRIPTION Received is one container labeled with the patient name and designated right third intermetatarsal space neuroma. The specimen consists of multiple pieces of wiley-yellow soft tissue measuring in aggregate 2.5 x 2 x 0.3 cm. The specimenis totally submitted in one cassette. 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 MICROSCOPIC DIAGNOSIS Soft tissue of right hand, third intermetatarsal space, excision: Consistent with neuroma. AM:lonny 04/16/15 Signed [facility] 04/16/15 <signature on file> : BREAST BIOPSY (CHOOSE See Note (Normal) Comments: [facility] [address] [place], [address] 10 SITE) Comments: Patient: SYLVIA RAMIREZ : 1955 (59/F) Acct Num: [id number] Phys: Jaxon Álvarez MD Unit Num: [id number] Loc: [facility] Specimen: [id number] Received: 02/06/151614 Spec Type: BREAST BX TISSUES [...] one cassette. / AM: 02/07/15 TC:5 CPT: 32128 HEADER OPERATION: U/S guided core biopsy left breast PRE-OP DIAGNOSIS: Abnormal mammogram R92.8 TISSUE SUBMITTED: Needle core biopsy left breast ISCHEMIC TIME: 5 seconds MICROSCOPIC DESCRIPTION Slides are reviewed. MICROSCOPIC DIAGNOSIS Left br east, U/S guided core biopsy: Extensive dense fibrosis and fibrocystic changes. Negative for atypia or malignancy in the submitted specimen. SJ: 02/08/15 Signed Hi Hernandez 02/08/15 <signature on file> 41-Vwr-18192:45 LIPID VLDL 12 mg/dL (Normal) Range: 5-40 [...] CHOL 213 mg/dL (Abnormal) Comments: <200 mg/dL Xfdmyvfty487-686 mg/dL Borderline>240 mg/dL High Risk 86-Xwp-059344:03 PARATHORMONE (95706) Comments: PATIENT NOT FASTINGPERFORMED BY: [facility] Qpbtgy[address] [facility] [place] [id number] Information: [id number],2ND ORDER NO DRAW F EE PTH, Intact 23 pg/mL (Normal) Range: 15-65 13-Edm-990116:02 TSH (THYROID STIMULATING Comments: PATIENT NOT FASTINGPERFORMED BY: [facility] Zuekpb[address] [facility] [place] [id number] HORMONE) (23400) TSH 0.733 {uIU/mL} (Normal) Range: 0.450-4.500 :02 CALCIFEDIOL (47669) Comments: PATIENT NOT FASTINGPERFORMED BY: [facility] Jxgkwn4[address] [facility] [place] [id number] Vitamin D, 25-Hydroxy 28.9 ng/mL (Abnormal) Range: 30.0-100.0 Comments: Vitamin D deficiency has been defined by the [place] ofMedicine and an Endocrine Society practice guideline as alevel of serum 25-OH vitamin D less than 20 ng/mL (1,2).The Endocrine Society went on to further define vitamin Dinsufficiency as a level between 21 and 29 ng/mL (2).1. IOM ([place] of Medicine). 2010. Dietary reference intakes for calcium and D. [place]: The National Academies Press.2. Fernie MF, Saida NC, Esdras JIMENEZ, et al. Evaluation, treatment, and prevention of vitamin D deficiency: an Endocrine Society clinical practice guideline. JCEM. 2010; 96(7):1911-30. 48-[id number]:02 METABOLIC PANEL, Comments: PATIENT NOT FASTINGPERFORMED BY: [facility] [id number] RoadDublin [place] [id number] Information: [id number] COMPREHENSIVE ([id number]) ALT (SGPT) 77 [iU]/L (Abnormal) Range: 0-32 [...] Glucose, Serum 110 mg/dL (Abnormal) Range: 65-99 48-Tjg-[id number] CBCD Comments: NO CHARGE REDRAW ANC 7.5 [...] 4.2-5.4 WBC 8.6 K/mm3 (Normal) Range: 4.4-11.0 72-Pet-[id number]:29 SED Comments: NO CHARGE REDRAW tSEDRATE 20 mm/h (Normal) Range: 0-30 49-Mmz-054731:42 Urinalysis, Office ([id number]) UA - LEUKOCYTE ESTERASE Negative (Normal) UA - NITRITE Negative (Normal) URINE UROBILINGN MARIE TIMED Normal mg/dL (Normal) UA - PROTEIN Negative mg/dL (Normal) UA - PH 7 (Normal) UA - BLOOD Negative (Normal) UA - SPECIFIC GRAVITY 1.020 (Normal) UA - KETONES Small mg/dL (Normal) UA - BILIRUBIN Negative (Normal) UA - GLUCOSE Negative (Normal) [id number]-Amw-[id number]:38 Systemic Lupus Profile Comments: PATIENT NOT FASTINGPERFORMED BY: [id number] [id number] Information: [id number] ([id number]) Anti-DNA (DS) Ab Qn 3 {IU/mL} (Normal) Range: 0-9 Comments: Negative <5 Equivocal 5 - 9 Positive >9 Sjogren's Anti-SS-B 0.2 {AI} (Normal) Range: 0.0-0.9 Sjogren's Anti-SS-A <0.2 {AI} (Normal) Range: 0.0-0.9 Antichromatin Antibodies <0.2 {AI} (Normal) Range: 0.0-0.9 RA Latex Turbid. 8.4 {IU/mL} (Normal) Range: 0.0-13.9 Iraheta Antibodies <0.2 {AI} (Normal) Range: 0.0-0.9 VIBRATION TECHNICIAN Antibodies <0.2 {AI} (Normal) Range: 0.0-0.9 4-Dyq-[id number]:05 HAND MIN 3 VIEWS Radiology Report See [...] Signed:Tobin Sawant M.D.November 25 at 2:42:01 PM [id number] Signed GP/GP If you are the referring physician and would like to consult with theradiologist who provided this interpretation, please contact Amber calixto M.D. at [phone]. If this radiologist is unavailable, youwill be directed to another radiologist to assist. If you are a patient with a question regarding this report, pleasecontactyour referr ing physician directly. Professional Interpretation Provided By: [email or web address], Phone , These documents contain legally protected [...] 11/25/12 1454 Sign by: Tobin Sawant MD 9-Wnf-607474:04 HAND MIN 3 VIEWS Radiology Report See [...] swelling. Signed:Tobin Sawant M.D.November at 2:42:30 PM [id number] Signed GP/GP If you are the referring physician and would like to consult with theradiologist who provided this interpretation, please contact Tobin Sawant M.D. at [phone]. If this radiologist is unavailable, youwill be directed to another radiologist to assist. If you are a patient with a question regarding this report, pleasecontactyour daniel fry physician directly. Professional Interpretation Provided By: [email or web address], Phone , These documents contain legally protected [...] 11/25/12 1454 Sign by: Tobin Sawant MD 9-Hrf-195026:04 WRIST MIN 3 VIEWS Radiology See Note [...] Sawant M.D.November 25, 2012 at 2:43:33 PM [id number] Signed GP/GP If you are the referring physician and would like to co nsult with theradiologist who provided this interpretation, please contact Jaz Falk at [phone]. If this radiologist is unavailable, youwill be directed to another radiologist to nan ling. If you are a patient with a question regarding this report, pleasecontactyour referring physician directly. Professional Interpretation Provided By: [email or web address], Phone ,Fax These documents contain legally protected [...] 11/25/12 1456 Sign by: Tobin Sawant MD 9-Tgg-866764:04 WRIST MIN 3 VIEWS Radiology See Note [...] Sawant M.D.November 25, 2012 at 2:42:31 PM [id number] Signed GP/GP If you are the referring physician and would like to con sult with theradiologist who provided this interpretation, please contact Jaz Falk at [phone]. If this radiologist is unavailable, youwill be directed to another radiologist to ed slaughter. If you are a patient with a question regarding this report, pleasecontactyour referring physician directly. Professional Interpretation Provided By: [email or web address], Phone , These documents contain legally protected [...] IMPORTSign by Tobin Sawant MD on 11/25/12 145 Sign by: Tobin Sawant MD 4-Mws-183185:50 CCP ANTIBODY (52887) Comments: PATIENT NOT FASTINGPERFORMED BY: [employer] [id number] BY: [employer] [id number] CCP Antibodies IgG/IgA 21 {units} (Abnormal) Range: 0-19 Comments: Negative <20 Weak positive 20 - 39 Moderate positive 40 - 59 Strong positive >59 3-Vyi-891057:50 SED RATE ERYTHROCYTE Comments: PATIENT NOT FASTINGPERFORMED BY: [facility]6[address] [employer] [facility] [id number] BY: [employer] [id number] ([id number]) Sedimentation Rate-Westergren 2 mm/h (Normal) Range: 0-40 0-Ppz-097367:50 C-REACTIVE PROTEIN (47472) Comments: PATIENT NOT FASTINGPERFORMED BY: [employer]70 [facility] [id number] BY: [address] [id number] C-Reactive Protein, Quant 1.6 mg/L (Normal) Range: 0.0-4.9 :50 TSH (29735) Comments: PATIENT NOT FASTINGPERFORMED BY: [address] [id number] BY: [address] [id number] TSH 1.410 {uIU/mL} (Normal) Range: 0.450-4.500 8-Mco-989506:50 RHEUMATOID FACTOR-QUANT Comments: PATIENT NOT FASTINGPERFORMED BY: [address] [id number] BY: [address] [id number] (23363) RA Latex Turbid. 5.4 {IU/mL} (Normal) Range: 0.0-13.9 :50 PATRICK (ANTINUCLEAR ANTIBODY) Comments: PATIENT NOT FASTINGPERFORMED BY: [address] [id number] BY: [address] [id number] (33086) PATRICK Direct Positive (Abnormal) :50 CBC WITH MANUAL DIFF Comments: PATIENT NOT FASTINGPERFORMED BY: [address] [id number] BY: [address] [id number] Inf ormation: [id number] (17554) Immature Grans (Abs) 0.0 {x10E3/uL} (Normal) Range: [...] 3.77-5.28 WBC 4.7 {x10E3/uL} (Normal) Range: 4.0-10.5 2-Zwp-626789:50 METABOLIC PANEL, Comments: PATIENT NOT FASTINGPERFORMED BY: CB [facility] Trjiip9248 [facility] [id number] BY: [facility] [address] [id number] [facility] (03290) ALT (SGPT) 22 [iU]/L (Normal) Range: 0-32 [...] 200-240 mg/dL Borderline >240 mg/dL High Risk 31-Jul-20099:18 METABOLIC PANEL, COMPREHENSIVE Comments: PATIENT WAS FASTINGPERFORMED BY: [facility] CenterFtmihg9875 [facility] [id number] ([id number]) ALT (SGPT) 20 [iU]/L (Normal) Range: 0-40 [...] MANUAL DIFF Comments: PATIENT WAS FASTINGPERFORMED BY: [facility]6370 [facility] [id number] Information: [id number] (55930) Baso (Absolute) 0.0 {x10E3/uL} (Normal) Range: 0.0-0.2 [...] {x10E3/uL} (Abnormal) Range: 4.0-10.5 :18 LIPID PANEL (23395) Comments: PATIENT WAS FASTINGPERFORMED BY: [facility] CenterAlamzs2503 [facility] [id number] LDL Cholesterol Calc 128 mg/dL (Abnormal) Range: [...] Report See Note (Normal) Comments: Exam Number: [id number] UNILATERAL LEFT RIBS Several views of the [...] Report See Note (Normal) Comments: Exam Number: [id number] DORSAL SPINE AP and lateral views were [...] unspecified laterality Planned Observations METABOLIC PANEL, COMPREHENSIVE (98088)Indication: Hyperlipidemia, mild On: :49 Request LIPOPROTEIN, BLD, BY NMR (04001)Indication: Hyperlipidemia, mild On: :49 Request HEPATIC FUNCTION PANEL (05634)Indication: Hyperlipidemia, mild On: :28 Request LIPOPROTEIN, BLD, BY NMR (07789)Indication: Hyperlipidemia, mild On: : Request CBC, Platelets & Auto Diff (00715)Indication: Headache, occipital On: : Request Comments: all labs stat C-Reactive Protein (16582)Indication: Headache, occipital On: Request Sed Rate Erythrocyte (33796)Indication: Headache, occipital On: Request Sed Rate Erythrocyte (04080)Indication: Headache, occipital On: :09 Request LIPID PANEL (37622)Indication: Osteoarthrosis, not specified whether generalized/localized, lower leg On: :11 Request Parathyroid Hormone-related Peptide (PTH-rP) (51665)Indication: Abnormal blood chemistry On: 14-Dvc-537036:02 Request METABOLIC PANEL, COMPREHENSIVE (45159)Indication: Swelling On: :15 Request Comments: Add to standing order to be done today CPK TOTAL & ISOENZYMES (57335)Indication: Elevated CPK On: :14 Request Comments: repeat today add to standing labs C-Reactive Protein (37183)Indication: Elevated CPK On: :14 Request Comments: include with standing labs today TSH (27113)Indication: Swelling On: :12 Request Comments: Add to current standing order for today only Print this for pt MICROALBUMIN URINE QUANT (83440)Indication: Swelling On: 43 Request MICROALBUMIN: CREATININE RATIO (35508) AND (02993)Indication: Swelling On: :43 Request EXTRCTBL NUCLR ANTGEN EA (12609) test code 774159Lipheyflfq: Abnormal blood chemistry On: :25 Request ANTI-Sm (ANTI IRAHE[place] ANTIBODY) (30502) test code 297105Mzrzcbxszp: Abnormal blood chemistry On: Request ANTI-VIBRATION TECHNICIAN (ANTI RIBONUCLEAR PROTEIN ANTIBODY) (87635) test code 510240Kqfwruljbw: Abnormal blood chemistry On: Request DNA ANTIBODY-NATV/DBL ST (47948) test code 738350Dxxwcdurkm: Abnormal blood chemistry On: Request URINALYSIS (84102)Indication: Malignant neoplasm of breast (female) On: : Request CBC (Auto) (86245)Indication: Malignant neoplasm of breast (female) On: : Request Metabolic Panel, Comprehensive (87745)Indication: Malignant neoplasm of breast (female) On: Request Planned Procedures MAMMOGRAM BREAST BILATERAL On: 21-Mar-2018 Intent SCREENING DIGITAL (69282)By: Lorena Talbot MD, MD, Dana M INJECTION, PROLIA (J0897)By: Visit, On: 24-Feb-2018 Intent Nurse Comments: [id number]/20prefilled syringer arm, SCMLONG Bone Density StudyBy: Dahiana HERRING, On: 01-Feb-2018 Intent Lorena Hopson MD Comments: due after 03-10-18 INJECTION, PROLIA (J0897)By: On: 14-Jul-2017 Intent Lorena Talbot MD, MD, Dana Comments: lot: [id number]: 09/2019site/route: R arm/SQamt: prefilled syringeVIS signed when applicableBLU Waters INJECTION, PROLIA (J0897)By: On: 17-Dec-2016 Intent Lorena Talbot MD, MD, Dana Comments: Lot:[id number]:02/11Dose:60mlRoute:sub q Site:r armGiven By:CHARLETTE mooney M Radiology - ChestBy: Dahiana HERRING, On: 02-Jul-2016 Intent Lorena Hopson MD Comments: recheck approx. 4 weeks check before 17 follow up Radiology - Chest- PA and LatBy: On: 02-Jul-2016 Intent Lorena Talbot MD, MD, Dana M Inhaler Demo (41362)By: Dahiana HERRING, On: 02-Jul-2016 Intent Lorena Hopson MD Aerosol Treatment (75424)By: On: 02-Jul-2016 Intent Lorena Talbot MD, MD, Dana M INJECTION, PROLIA (J0897)By: On: 12-Jun-2016 Intent Lorena Talbot MD, MD, Dana Comments: lot: [id number]: 08/12site/route: R arm/SQamt: prefilled syringe 60mgVIS signed when applicableBLU Waters LE Arterial Exam - LowerBy: Dahiana On: 02-Apr-2016 Intent Lorena HERRING MD, Dana M Aerosol Treatment (20000)By: Dewayne On: 04-Mar-2015 Pat Patel CNP RIGHT MAMMOGRAM (02620)By: Dewayne On: 04-Mar-2015 Pat Patel CNP Breast Ultrasound - LeftBy: Dewayne On: 01-Jan-2015 Pat Patel CNP Comments: call results to Nabil at [facility] LEFT MAMMOGRAM (05529)By: Dewayne On: 01-Jan-2015 Pat Patel CNP Comments: call Agus Buchanan at [facility] with results Bone Density StudyBy: Dahiana HERRING, On: 31-Jan-2014 Intent Lorena Hopson MD BILATERAL MAMMOGRAMS (08817)By: On: 31-Jan-2014 Intent Lorena Talbot MD, MD, Dana M Kenalog Injection, 10 mgm On: 05-Dec-2013 Intent (J3301)By: Lorena Talbot MD Comments: lot: [id number]: 04/09site/route: L and R knee/joint injamt: 1cc in each kneeVIS signed when applicablex8 Lorena Talbot MD Echo CompleteBy: Pat Buchanan CNP On: 11-Aug-2013 Intent Eprescribed prescriptions On: 11-Aug-2013 Intent (G8553)By: Pat Buchanan CNP Eprescribed prescriptions On: 18-Jul-2013 Intent (G8553)By: Lorena Talbot MD, MD, Lorena Lewis Eprescribed prescriptions On: 08-Jun-2013 Intent (G8553)By: Becky Bryan DO Wax CurettesBy: Becky Bryan DO On: 08-Jun-2013 Intent Ear Irrigation (96332)By: Randi On: 08-Jun-2013 Intent Becky THOMAS Comments: small amt came out of both ears but still thin film on rim Radiology - Wrist - BilateralBy: On: 25-Nov-2012 Intent Becky Bryan DO Radiology - Hand - BilateralBy: On: 25-Nov-2012 Intent Becky Bryan DO IMMUNIZATION ADMIN (94882)By: On: 04-May-2012 Intent Katerina Broderick Comments: Lot:[id number]:07-30-13Dose:prefilledRoute:IMSite:R armGiven By:JKMKAYE COMPLETE ON THIS DATE IMMUNIZATION ADMIN (89334)By: On: 09-Jun-2011 Intent Eneida Beth Comments: Lot:[id number]:01/30/13Amt:prefilledRoute:IMSite:right deltGiven By: KENNEDY Greene IMMUNIZATION ADMIN (18082)By: On: 11-May-2011 Intent Shavon Bunch LPN Comments: Lot #[id number]-11/1/13Site-right deltoidgiven by: Jeffrey Bunch LPN TDAP VACCINE >7 IM (01045)By: On: 04-May-2011 Intent Dahiana HERRING, Lorena Hopson MD IMMUNIZATION ADMIN (44641)By: On: 04-May-2011 Intent Lorena Talbot MD, MD, Dana M Kenalog Injection, 10 mgm On: 27-Jun-2010 Intent (J3301)By: Lorena Talbot MD, MD, Dana M Kenalog Injection, 10 mgm On: 27-Jun-2010 Intent (J3301)By: Lorena Talbot MD, MD, Dana M DXA, BONE DENSITY, AXIAL SKELETON On: 14-Nov-2009 Intent (68761)By: Lorena Talbot MD Comments: estrogen def, medication high risk Lorena Talbot MD Venous Doppler - LeftBy: Dahiana On: 25-Sep-2009 Intent Lorena HERRING MD, Dana M Comments: lower Unhmumyzh-Kis-Eddx (15769)By: On: 31-May-2009 Intent Lorena Talbot MD, MD, Dana Comments: pain along rib M Radiology - Thoracic SpineBy: On: 31-May-2009 Intent Lorena Talbot MD, MD, Dana M PHYSICAL THERAPY EVALUATION On: 03-Apr-2008 Intent (25949)By: Dewayne ENGINE INSTALLER, Pat Dowling Radiology - ChestBy: Ciesa ENGINE INSTALLER, On: 03-Apr-2008 Intent Pat Dowling Kenalog Injection, 10 mgm On: 04-Nov-2007 Intent [...] for Follow up acute care visit: In [place] and noted left arm red streak from [...] for Earache: will be leaving wednesday for [facility]. had sinusitis month ag o. [...] (left). Note for Calf pain: [place] and at [employer]. wearing fit flops. in 4-10 left knee [...] incident not at work (working out at [employer]) and has been occurring in an intermittent [...] type alot and also restart at [facility] Diagnosis: Parasthesia (782.0) [facility] [...] WWV, Osteoarthritis (715.96), Unspecified breast disorder (611.9) [facility] Payers Tiffanie RAMIREZ; a guarantor
--- OUTSIDE RECORDS SUMMARY | 2018-05-19 10:07 | XMS RPT_ITS | Continuity of Care Document ---
:1955 Author Organization [facility] Address [facility] [address] [place] [address] Phone Care Team Providers Name Role Phone [...] Active Cough (R05, 786.2) Comments: [place] in [place] in [place]. some PND no reflux. 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 Status: Active Interstitial lung disease (J84.9, 515) Comments: fall 2014 lung fcn was normal - cribber dr Liang at [facility] 11-16 PFTs normal stable Status: Active Malignant [...] PPD (R76.11, 795.51) Comments: see ID at [facility] in past Status: Active Pregnancies () Comments: [...] with patient xrays look up from the [facility]. CPPD. Status: Inactive as of 11-Jul-2015 Lipoma (D17.9, 214.9) Status: Inactive as of 11-Jul-2015 Low back pain (M54.5, 724.2) Status: Inactive as of 03-Oct-2008 Malnutrition (E46, 263.9) Status: Inactive as of 11-Jul-2015 Neck pain (M54.2, 723.1) Status: Inactive as of 22-Sep-2016 Obesity, unspecified (E66.9, 278.00) Status: Inactive as of 22-Sep-2016 Osteoarthritis (M17.10, 715.96) [facility] [...] knee surgery left 1999 Completed bilateral foot evqtplbyp-[id number] Completed Carpal Tunnel Completed Comments: left 2010 Dr. Chandler Carpal Tunnel right wrist Completed Comments: Dr. Chandler 06-03-10 Colonoscopy Completed Comments: 11-06-13 Dr. Gimenez repeat in 10 years Hernia 1997 Completed Hysterectomy, Total Completed Comments: Dr. Mabry Lumpectomy Completed Comments: 06/2006- breast Tonsillectomy Completed Comments: 1960 Date Value Details 30-Nov-2017 Emergency Department Summary Result: Comments: See Note; NOTES: [facility] Medical Records Department [address] [place] [address] Emergency Department Summary 11/30/17 0934 MR#: [id number] Acct: [id number] Name: SYLVIA RAMIREZ Rep #: [id number] : 1955 62 From: Eliezer Ojeda DO PCP: Lorena Talbot MD Status: REG ER - ER Visit Summary Date of Service: 11/30/17 Chief Complaint: [] History of Present Il lness: The patient is a 62 F [] Physical Examination: [] Test Results: [] Emergency Department Course and Treatment: [] Treatment Plan: [] Disposition: [] Impression: [] This note was generated with Fresh Interactive Technologiesation software. It may contain incorrect words, spelling, and punctuation that were not noted in review of the chart prior to signing ED Disposition - Plan for ED Patient: Dispositio n: Home or Assisted Living Chief Complaint: Abd Pain Diagnosis: Right upper quadrant abdominal pain of unknown etiology Instructions: ED Abdominal Pain Unkn Cause Prescriptions: Hydrocodone Bitart/Apap 5-325 [Alto 5MG-325MG] 1 tab PO Q6H PRN PRN 3 Days #10 tab PRN Reason: Pain Omeprazole [Prilosec] 20 mg PO DAILY #30 cap Referrals: Lorena Talbot MD [Primary Care Provider] - What to do if you have Problems For any increased pain, shortness of breath, bleeding, nausea or vomiting, chest pain, or any unexpected problems, contact your Primary Care Provider. Call [facility] ([phone]) or report to the closest Emergency Room. Call 911 if necessary. 11/30/17 0937 <Electronically signed by Eliezer Ojeda DO> Date Eliezer sanchez DO Cosigner Signature (If Indicated): Date CC: Lorena Talbot MD 30-Nov-2017 Emergency Department Summary Result: Comments: See Note; NOTES: [facility] Medical Records Department [address] [place] [address] Emergency Department Summary 11/30/17 0417 MR#: [id number] Acct: [id number] Name: SYLVIA RAMIREZ Rep #: [id number] : 1955 62 From: Bladimir Parikh MD PCP: Lorena Talbot MD Status: REG ER ADDENDUM by Eliezer Ojeda DO on 11/30/17 at 0934 Care of the patient was turned over to nc a t 7 AM. Right upper quadrant ultrasound was obtained and was normal. Patient was given a prescription for Prilosec and a short course of Alto. Patient was instructed to follow-up with her [...] given opti on of staying until the program arranger presents in the morning for ultrasound or [...] and vomiting This note was generated with Webt[employer] dictation software. It may contain incorrect words, [...] your Primary Care Provider. Call [facility] ([phone]) or report to the closest Emerge ncy Room. Call 911 if necessary. 11/30/17 0702 <Electronically signed by Bladimir Parikh MD> Date Bladimir Parikh MD Cosigner Signature (If Ind icated): Date CC: Lorena Talbot MD 30-Nov-2017 Emergency Department Summary Result: Comments: See Note; NOTES: [facility] Medical Records Department [address] [place] [address] Emergency Department Summary 11/30/17 0417 MR#: [id number] Acct: [id number] Name: SYLVIA RAMIREZ Rep #: [id number] : 1955 62 From: Bladimir Parikh MD [...] or night sweats. She denies any ocular, financial services auditor y or visual symptoms. She denies [...] was given option of staying until the program arranger presents in the morning for ultrasound or [...] and vomiting This note was generated with Exav[employer] s oftware. It may contain incorrect words, [...] your Primary Care Provider. Call [facility] ([phone]) or report to the closest Emergency Room. Call 911 if necessary. 11/30/17 0702 <Electronically signed by Bladimir Parikh MD&#62 ; Date Bladimir Parikh MD Cosigner Signature (If Indicated): Date CC: Lorena Talbot MD 30-Nov-2017 Gallbladder Result: Comments: See Note; NOTES: [facility] Imaging Services [address] [place] [address] Gallbladder MR#: [id number] Acct: [id number] Name: SYLVIA RAMIREZ Rep #: [id number] : 1 05/18/1954 F 62 From: Joseph Tony DO PCP: Lorena Talbot MD Status: REG ER Study: Gallbladder Date of Exam: 11/30/17 Exam# [id number] Ordering Dr: Bladimir Parikh MD STUDY: ABDOMINAL [...] CC: Lorena Talbot MD; Bladimir Parikh MD Cage Clerk: Signed 16-Mar-2017 SCREENING MAMM (CAD), BILAT Result: Comments: See Note; NOTES: [facility] Imaging Services [address] [place] [address] SCREENING MAMM (CAD), BILAT MR#: [id number] Acct: [id number] Name: SYLVIA RAMIREZ Rep #: [id number] : 1955 F 61 From: Tobin Sawant MD PCP: Lorena Talbot MD Status: REG CLI Study: SCREENING MAMM (CAD), BILAT Date of Exam: 03/16/17 Exam# [id number] Ordering Dr: Yomi Pérez AMMOGRAPHY - BILATERAL [...] delay biopsy of a clinically suspicious abnormality. [id number] Electronically Signed: Tobin Sawant MD at 10:39 EST Tel [phone], Service support , CC: Lorena Talbot MD; Yomi Pérez DO Cage Clerk: Signed 02-Jul-2016 Chest PA and Lateral Result: Comments: See Note; NOTES: [facility] Imaging Services [address] [place] [address] Verdana 4d Chest PA and Lateral MR#: [id number] Acct: [id number] Name: SYLVIA RAMIREZ Rep #: [id number] : 1955 F 61 From: Yecenia Khan MD PCP: Lorena Talbot MD Status: REG CLI Study: Chest PA and Lateral Date of Exam: 07/02/16 Exam# [id number] Ordering Dr: Lorena Talbot MD STUDY: X-RAY [...] MD at 15:38 EST , Service support [phone], CC: Lorena Talbot MD Cage Clerk: Signed 10-Apr-2016 Vascular Test/LEAS/UEAS Result: Comments: See Note; NOTES: [facility] Cardiovascular Services [address] [place] [address] Verdana 4d Lower Ext Art Exam w/o Exercis MR#: [id number] Acct: [id number] Name: SYLVIA GUADARRAMA Rep #: [id number] : 1955 61 From: Jim Martin MD [...] bilaterally. Jim Vidal MD T: NTS JOB: [id number] 04/10/16 1306 <Electronically signed by Jim Martin MD> Date Jim Martin MD CC: Lorena Talbot MD Date Dictated: 04/08/161722 Date Transcribed: 04/08/161722 Cage Clerk: Signed 10-Mar-2016 Bilat Scrn Digital AND CAD Result: Comments: See Note; NOTES: [facility] Imaging Services [address] [place] [address] Verdana 4d Bilat Scrn Digital AND CAD MR#: [id number] Acct: [id number] Name: SYLVIA RAMIREZ Rep #: [id number] : 1955 F 60 From: Tobin Sawant MD PCP: Lorena Talbot MD Status: REG CLI Study: Bilat Scrn Digital AND CAD Date of Exam: 03/10/16 Exam# [id number] Ordering Dr: Jose Pérez ul DO MAMMOGRAPHY [...] results will be sent to the [facility] by the facility within 30 days. Approximately 10% of breast cancers are not detected by mammography. A normal mammogram should not delay biopsy of a clinically suspicious abnormality. [id number] Elect ronically Signed: Tobin Sawant MD at 11:03 EST Tel [phone], Service support [phone], CC: Lorena Talbot MD; Yomi Pérez DO Cage Clerk: Signed 10-Mar-2016 Dexa Bone Density Study (HP) Result: Comments: See Note; NOTES: [facility] Imaging Services [address] [place] [address] Verdana 4d Dexa Bone Density Study () MR#: [id number] Acct: [id number] Name: MARCELA RAMIREZ Rep #: [id number] : 1955 F 60 From: Tobin Sawant MD PCP: Lorena Talbot MD Status: REG CLI Study: Dexa Bone Density Study () Date of Exam: 03/10/16 Exam# [id number] Ordering Dr: KODY NESBITT STUDY: DUAL ENERGY [...] Tobin Sawant MD at 10:18 EST Tel [phone], Service support [phone], CC: Lorena Talbot MD; KODY NESBITT Cage Clerk: Signed 07-Jul-2015 History and Physical Exam Result: Comments: See Note; NOTES: [facility] Medical Records Department [address] [place] [address] History and Physical 07/07/15 1809 MR#: [id number] Acct: [id number] Name: SYLVIA RAMIREZ Rep #: [id number] : 1955 60 From: Lucy Figueroa MD [...] mentioned above presented to the emergency room [facility] of left upper extremity soreness, [...] [Vitamin 2,000 unit PO DAILY 07/07/15 D] Waleska-3 Fatty Acids/Fish Oil 2 each PO DAILY 07/07/15 [Waleska 3 1,000 mg Softgel] Turmeric [Turmeric Root] [...] 92.3 H Lymph % (Auto) 4.1 L [place] % (Auto) 2.2 Eos % (Auto) 1.0 [...] Result: Comments: See Note; NOTES: [facility] Medical Records Department [address] [place] [address] Operative Report MR#: [id number] Acct: [id number] Name: KIRSTEN RAMIREZ Rep #: [id number] : 1955 60 From: Galileo Quinones DPM PCP: Lorena Talbot MD Status: [facility] DATE OF SERVICE: DATE OF SURGERY: April [...] needed. Galileo Quinones DPM T: KRISHAN JOB: [id number] 04/18/15 0757 <Electronic ally signed by Galileo Quinones DPM> Date Galileo Quinones DPM Cosigner Signature (If Indicated): Date CC: Lorena Talbot MD; Galileo Quinones DPM Date Dictated: 04/12/151647 Date Transcribed: 04/12/151647 Cage Clerk: Signed 12-Apr-2015 Discharge Instruction Result: Comments: See Note; NOTES: [facility] Medical Records Department [address] [place] [address] Instructions for Home/Discharge Instructions 04/12/15 1639 MR#: [id number] Acct: [id number] Name: SYLVIA RAMIREZ Rep #: [id number] : 1955 60 From: Galileo Quinones DPM [...] DAILY 04/04/15 Please Follow Up With: Galileo Qiunones When: 1 wee k or sooner if needed 04/12/151640 <Electronically signed by Galileo Quinones DPM> Date Galileo Quinones DPM CC: Lorena Talbot MD 04-Apr-2015 Chest PA and Lateral Result: Comments: See Note; NOTES: [facility] Imaging Services [address] [place] [address] Verdana 4d Chest PA and Lateral MR#: [id number] Acct: [id number] Name: SYLVIA RAMIREZ Rep #: [id number] : 1955 F 60 From: Jose Fagan MD PCP: Lorena Talbot MD Status: PRE [place] Study: Chest PA and Lateral Date of Exam: 04/04/15 Exam# [id number] Ordering Dr: Virgen Quinones DPM STUDY: X-RAY [...] FACR at 13:58 EST , Service support [phone], RAD/Chest PA and Lateral IMPRESSION: No signs of acute cardiopulmonary disease Electronically Signed: Jose Fagan MD, FACR at 13:58 EST , Service support [phone], CC: Lorena Talbot MD; Galileo Quinones DPM Cage Clerk: Signed 29-Mar-2015 EKG ([id number]) Comments: nsr no acute chg poor R wave progression Result: [MEASUREMENTS ANALYSIS] Date of Test: 03/29/2015 13:38:32; Heart Rate: 73; WA Interval: 180; QRS: 88; QT Interval: 380; Corrected QT Interval (QTc): 402; P Wave Malcolm: 33; QRS Wave Malcolm: 30; T Wave Malcolm: 29; Blood Pressure: 120/78 [ECG DIAGNOSTIC STATEMENTS] Date of Test: 03/29/2015 13:38:32; Summary: Sinus Rhythm WITHIN NORMAL LIMITS -Mar-2015 Inital Evaluation - PT Result: Comments: See Note; NOTES: [facility] Physical Therapy [facility] [address] [place] [address] Fax REHABILITATION SE RVICES INITIAL EVALUATION MR#: [id number] Acct: [id number] Name: SYLVIA RAMIREZ Rep #: [id number] : 1955 60 From: Gurdeep Carson Referring Dr.: Gailleo Quinones DPM Status: REG RCR Ins urance: [facility] Date: Patient's Visit Information SYLVIA [...] to be FAXED BACK to us at [phone] for Medicare purposes. Please let me know if there are questions or concerns regarding this plan of care. Physician Signature: Date: <Electronically signed by Gurdeep Carson > 03/28/15 1140 CC: Lorena Talbot MD; Galileo Quinones DPM [facility] Jeanne d For Medicare only, by signing this I certify the plan of care. Physicians Signature Date 08-Mar-2015 Unilat Rt Scrn Digital AND CAD Result: Comments: See Note; NOTES: [facility] Imaging Services [address] [place] [address] Verdana 4d Unilat Rt Scrn Digital AND CAD MR#: [id number] Acct: [id number] Na me: SYLVIA RAMIREZ Rep #: [id number] : 1955 F 59 From: Tobin Sawant MD PCP: Lorena Talbot MD Status: REG CLI Study: Unilat Rt Scrn Digital AND CAD Date of Exam: 03/08/15 Exam# [id number] Ordering Dr: Pat Buchanan MAMMOGRAPHY - UNILATERAL [...] delay biopsy of a clinically suspicious abnormality. [id number] Electronically Signed: Tobin Sawant MD 201 09/03/12 at 11:11 EST Tel [phone], Service support [phone], CC: Pat uBchanan; Lorena Talbot MD Cage Clerk: Signed 04-Mar-2015 Lower Ext/No Jt/w/o Result: Comments: See Note; NOTES: [facility] Imaging Services [address] [place] [address] Verdana 4d Lower Ext/No Jt/w/o MR#: [id number] Acct: [id number] Name: Cirilo RAMIREZ Rep #: [id number] : 1955 F 59 From: Jose Fagan MD PCP: Lorena Talbot MD Status: REG CLI Study: Lower Ext/No Jt/w/o Date of Exam: 03/04/15 Exam# [id number] Ordering Dr: Ward Quinones DPM STUDY: MRI [...] at 10:47 EST Tel , Service support [phone], CC: Lorena Talbot MD; Galileo Quinones DPM Cage Clerk: Signed 15-Jan-2015 Breast Limited Unilateral Result: Comments: See Note; NOTES: [facility] Imaging Services [address] [place] [address] Ultrasound Report MR#: [id number] Acct: [id number] Name: SYLVIA RAMIREZ Rep #: [id number] : 1955 F 59 From: Tobin Sawant MD PCP: Lorena Talbot MD Status: REG CLI Study: Breast Limited Unilateral Date of Exam: 01/15/15 Exam# [id number] Ordering Dr: Pat Buchanan STUDY : ULTRASOUND [...] Tobin Sawant MD at 13:27 EDT Tel [phone], Service support [phone], CC: Pat Buchanan ; Lorena Talbot MD Cage Clerk: Signed 01-Jan-2015 Breast Limited Unilateral Result: Comments: See Note; NOTES: [facility] Imaging Services [address] [place] [address] Ultrasound Report MR#: [id number] Acct: [id number] Name: SYLVIA RAMIREZ Rep #: [id number] : 1955 F 59 From: Frantz Rojas MD PCP: Lorena Talbot MD Status: REG CLI Study: Breast Limited Unilateral Date of Exam: 01/01/15 Exam# [id number] Ordering Dr: Pat Buchanan STUDY: ULT RASOUND [...] at 15:39 EDT Tel , Service support [phone], CC: Pat Buchanan; Lorena Talbot MD Cage Clerk: Signed 01-Jan-2015 Unilat Lt Diag Digital AND CAD Result: Comments: See Note; NOTES: [facility] Imaging Services [address] [place] [address] Breast Imaging Report MR#: [id number] Acct: [id number] Name: SYLVIA RAMIREZ Rep #: [id number] : 1955 F 59 From: Frantz Rojas MD PCP: Lorena Talbot MD Status: REG CLI Study: Unilat Lt Diag Digital AND CAD Date of Exam: 01/01/15 Exam# [id number] Ordering Dr: Pat Buchanan AMMOGRAPHY - UNILATERAL [...] t 15:34 EDT Tel , Service support [phone], CC: Pat Buchanan; Lorena Talbot MD Cage Clerk: Signed 21-Feb-2014 Bilmarcin Moraes Digital & CAD Result: Comments: See Note; NOTES: [facility] Imaging Services [address] [place] [address] Breast Imaging Report MR#: [id number] Acct: [id number] Name: SYLVIA RAMIREZ Rep #: [id number] : 1955 F 58 From: Tobin Sawant MD PCP: Lorena Talbot MD [facility]# [id number] Ordering Dr: Lorena Talbot MD MAMMOGRAPHY - [...] MD 201 08/03/28 at 9:41 EDT Tel [phone], Service support [phone], CC: Lorena Talbot MD Cage Clerk: Signed 21-Feb-2014 Dexa Bone Density Study (HP) Result: Comments: See Note; NOTES: [facility] Imaging Services [address] [place] [address] Bone Density Report MR#: [id number] Acct: [id number] Name: SYLVIA RAMIREZ Rep #: [id number] : 1955 F 58 From: Tobin Sawant MD PCP: Lorena Talbot MD Status: REG CLI Study: Dexa Bone Density Study (HP) Date of Exam: 02/21/14 Exam# [id number] Ordering Dr: Lorena Talbot MD STUDY: DUAL [...] Tobin Sawant MD at 12:35 EDT Tel [phone], Service support [phone], CC: Lorena Talbot MD Cage Clerk: Signed 08-Feb-2014 PT Discharge Summary Result: Comments: See Note; NOTES: [facility] Physical Therapy [address] [place] [address] Fax REHABILITATION SERVICES DISCHARGE SUMMARY MR#: [id number] Acct: [id number] Name: SYLVIA RAMIREZ Rep #: [id number] : 1955 58 From: Karrie Chris Referring [...] it is appropriate she be discharged from [facility] Physical Therapy and continue independent home exercise progra m. The patient was encouraged to call if she does have any questions or concerns. Karrie Chris DPT T: NTS JOB: [id number] <Electronically signed by Karrie Chris > 02/08/14 0705 CC: Signed 02-Jan-2014 Inital Evaluation - PT Result: Comments: See Note; NOTES: [facility] Physical Therapy [facility] [address] [place], [place] [address] Fax REHABILITATION SERVICES INITIAL EVALUATION MR#: [id number] Acct: [id number] Name: SYLVIA RAMIREZ Rep #: [id number] : 1955 58 From: Karrie Chris Referring Dr.: Haile Aguilera DO Status: REG R Insurance: [facility] Eval Date: DATE OF SERVICE: 01/01/2014 [...] On Wednesday she is leaving for the [place] and will be gone for approximately 2 [...] pain. Karrie Chris DPT T: NTS JOB: [id number] <Electronically signed by Karrie Chris > 01/02/14907 [...] Situation Comments: single lives alone, annie olivares [phone] dtr Status: Active No Drug Use Status: Active Non Smoker/No Tobacco Use Status: Active Number of Adult (age 18 or over) Dependents Comments: 2 Status: Active Tobacco use: Former smoker. Status: Active Smoking Status Name Dates Details Former smoker Vital Signs Date Test Result Details 14-Zva-105573:39 Pulse 70 /min Comments: Pattern: Regular Respiration Rate 18 /min O2 SAT 97 % Comments: Room air BP Systolic 114 mm[Hg] Comments: Patient Position: Sitting BP Diastolic 70 mm[Hg] Comments: Patient Position: Sitting 34-Qrp-480700:58 Temperature 97.6 f Comments: Method: Temporal Pulse [...] kg/m2 Body Surface Area Calculated 1.69 m2 46-Wog-093528:17 Temperature 97.6 f Comments: Method: Temporal Pulse [...] kg/m2 Body Surface Area Calculated 1.74 m2 06-Gqm-984504:02 Temperature 98.9 f Comments: Method: Oral Pulse [...] Value Details :49 CBC W/Diff, Automated Comments: [facility] [address] [place], [place], [id number] SMEAR COMMENT (Normal) Comments: LYMPHOPENIA NOTED Absolute [...] 4.2-5.4 WBC 6.0 K/mm3 (Normal) Range: 4.4-11.0 26-Dzp-427253:49 CPK Total, Creatine Kinase Comments: [address], [id number] CPK TOTAL 1954 U/L (Abnormal) Range: 26-192 21-Ggu-748196:49 Liver Profile Comments: [address], [address] D BILI 0.14 mg/dL (Normal) Range: 0.00-0.30 T BILI 0.60 mg/dL (Normal) Range: 0.20-1.00 ALT 92 U/L (Abnormal) Range: 13-56 ALK P 61 U/L (Normal) Range: 45-117 AST 76 U/L (Abnormal) Range: 15-37 GLOB 3.7 g/dL (Normal) Range: 2.2-4.2 ALB 3.6 g/dL (Normal) Range: 3.2-5.0 T PROT 7.3 g/dL (Normal) Range: 6.4-8.2 47-Ods-546347:49 Serum Creatinine AND GFR Comments: [address], [id number] EST GFR - AA 137 mL/min (Normal) Comments: GFR Calc EST GFR 113 mL/min (Normal) Comments: Non- GFR Calc CREAT,SERUM 0.57 mg/dL (Normal) Range: 0.55-1.02 Comments: The validity of the calculated GFR AND GFRAA in patients over70 years has not been determined. Clinical correlation isessential. 95-Igq-150104:35 Methymalonic Acid, Serum Comments: PATIENT NOT FASTINGPERFORMED BY: [address] [id number] BY: [place] [id number] [facility] [id number] ([id number]) Disclaimer: SPRCS (Normal) Comments: This test was developed and its performance characteristicsdetermined by [employer]. It has not been cleared or approvedby the Food and Drug Administration. Methylmalonic Acid, Serum 82 nmol/L (Normal) Range: 0-378 26-Naz-281801:35 Vitamin B-12 Comments: PATIENT NOT FASTINGPERFORMED BY: [address] [id number] BY: [facility] HospitalRen[facility] FibreChristopher [place] [id number] [facility] [id number] (cyanocobalamin) (29517) Vitamin B12 852 pg/mL (Normal) Range: 232-1245 43-Wzn-301075:35 HELICOBACTER PYLORI Comments: PATIENT NOT FASTINGPERFORMED BY: [address] [id number] BY: [place] [id number] [facility] [id number] ANTIBODY (25026) H. pylori, IgG Abs 0.17 {Index_Value} (Normal) Range: 0.00-0.79 Comments: Negative <0.80 Equivocal 0.80 - 0.89 Positive >0.89 51-Why-162817:35 Creatine Kinase Total Comments: PATIENT NOT FASTINGPERFORMED BY: [address] [id number] BY: [place] [id number] [facility] [id number] (12939) Creatine Kinase,Total 425 U/L (Abnormal) Range: 24-173 47-Cnv-696317:35 C-Reactive Protein Comments: PATIENT NOT FASTINGPERFORMED BY: [address] [place] [id number] BY: [facility]PH [facility] [address] Brian FoxRandolph Healthbrigitte [place] [id number] ([address]) C-Reactive Protein, Quant 6.0 mg/L (Abnormal) Range: 0.0-4.9 :50 Basic Metabolic Profile (BMP) Comments: [facility] [address] [place], [place], [address] GAP 10 (Normal) Range: 5-15 CO2 26.0 [...] A.D.A. criteria.Please note revised GLUCOSE reference range nwxpregqa22/02/2018. :50 CBC W/Diff, Automated Comments: [facility] [address] [place], [place], [id number] SMEAR COMMENT SCANNED (Normal) Absolute Lymph 0.21 [...] K/mm3 (Abnormal) Range: 4.4-11.0 :50 Lipase Comments: [facility] [address] [place] [address], [address] LIPASE 171 U/L (Normal) Range: 73-393 :50 Liver Profile Comments: [facility] [address] [place] [address], [address] D BILI 0.27 mg/dL (Normal) Range: 0.00-0.30 T BILI 1.10 mg/dL (Abnormal) Range: 0.20-1.00 ALT 36 U/L (Normal) Range: 13-56 ALK P 46 U/L (Normal) Range: 45-117 AST 32 U/L (Normal) Range: 15-37 GLOB 3.9 g/dL (Normal) Range: 2.2-4.2 ALB 3.6 g/dL (Normal) Range: 3.2-5.0 T PROT 7.5 g/dL (Normal) Range: 6.4-8.2 14-Wvd-591489:27 CBC-Complete Blood Cnt No Diff Comments: [facility] [address] [place], [place], [address] MPV 10.2 fL (Normal) Range: 6.2-12.0 PLT [...] 4.2-5.4 WBC 4.0 K/mm3 (Abnormal) Range: 4.4-11.0 68-Evm-531503:27 CPK Total, Creatine Kinase Comments: [facility] [address] [place], [place], [phone] CPK TOTAL 577 U/L (Abnormal) Range: 26-192 25-Bhj-004326:27 Liver Profile Comments: [facility] [address] [place], [place], [id number] D BILI 0.16 mg/dL (Normal) Range: 0.00-0.30 T BILI 0.90 mg/dL (Normal) Range: 0.20-1.00 ALT 36 U/L (Normal) Range: 13-56 ALK P 43 U/L (Abnormal) Range: 45-117 AST 33 U/L (Normal) Range: 15-37 GLOB 3.7 g/dL (Normal) Range: 2.2-4.2 ALB 3.8 g/dL (Normal) Range: 3.2-5.0 T PROT 7.5 g/dL (Normal) Range: 6.4-8.2 16-Vnv-664630:27 Serum Creatinine AND GFR Comments: [facility] Xmbhbfejii[address] [place], [place], [address] EST GFR - AA 163 mL/min (Normal) Comments: GFR Calc EST GFR 135 mL/min (Normal) Comments: Non- GFR Calc CREAT,SERUM 0.49 mg/dL (Abnormal) Range: 0.55-1.02 Comments: The validity of the calculated GFR AND GFRAA in patients over70 years has not been determined. Clinical correlation isessential. 96-Hol-925477:23 CBC W/Diff, Automated Comments: [facility] Rxnfmbxyon00[address] [place], [place], [id number] BASO STIP RARE (Normal) PLT EST ADEQUATE [...] :34 CBC-Complete Blood Cnt No Diff Comments: [facility] Sectinnfjl9[address] [place], [place], [address] MPV 10.1 fL (Normal) Range: 6.2-12.0 PLT [...] 4.4-11.0 :34 CPK Total, Creatine Kinase Comments: [facility] [address]jgrxy[address] [place], [place], [address] CPK TOTAL 909 U/L (Abnormal) Range: 26-192 :34 Liver Profile Comments: [address] [place], [place], [address] D BILI 0.16 mg/dL (Normal) Range: 0.00-0.30 T BILI 0.70 mg/dL (Normal) Range: 0.20-1.00 ALT 49 U/L (Normal) Range: 13-56 ALK P 52 U/L (Normal) Range: 45-117 AST 44 U/L (Abnormal) Range: 15-37 GLOB 3.8 g/dL (Normal) Range: 2.2-4.2 ALB 3.5 g/dL (Normal) Range: 3.2-5.0 T PROT 7.3 g/dL (Normal) Range: 6.4-8.2 :34 Serum Creatinine AND GFR Comments: [facility] Hsqfotdnjv[address] [place], [place], [address] EST GFR - AA 192 mL/min (Normal) [...] B CORE,TOT Negative (Normal) Comments: Performed at: [facility] [address] [id number] Director: Arsh Cuellar PhD, Phone: [phone] :23 Hepatitis C Antibodies Comments: [facility]? [facility] (refer to report for specific site)refer to report for address and phone number HEP C AB 0.1 {s/co_ratio} (Normal) Range: 0.0-0.9 Comments: Negative: < 0.8 Indeterminate: 0.8 - 0.9 Positive: > 0.9 The CDC recommends that a positive HCV antibody result be followed up with a HCV Nucleic Acid Amplification test (682241). :23 Immunoglobulins G/A/M Comments: Is Patient Fasting? [facility] (refer to report for specific site)refer to report for address and phone number IMMUNOGL M 202 mg/dL (Normal) Range: 26-217 IMMUNO A 165 mg/dL (Normal) Range: 87-352 IMMUNO G 1092 mg/dL (Normal) Range: 700-1600 49-Hgi-037349:18 CBC-Complete Blood Cnt No Diff Comments: [facility] Oqvhltcbvu49[address] [place], [place], [address] MPV 11.1 fL (Normal) Range: 6.2-12.0 PLT [...] 4.2-5.4 WBC 4.9 K/mm3 (Normal) Range: 4.4-11.0 89-Szd-365996:18 Liver Profile Comments: [facility] [address]kn[address]oplom9416 [address] [place], [place], [address] D BILI 0.13 mg/dL (Normal) Range: 0.00-0.30 T BILI 0.60 mg/dL (Normal) Range: 0.20-1.00 ALT 56 U/L (Normal) Range: 13-56 Comments: Please note revised ALT reference range qcxoratpz53/28/2018. ALK P 49 U/L (Normal) Range: 45-117 AST 57 U/L (Abnormal) Range: 15-37 GLOB 3.6 g/dL (Normal) Range: 2.2-4.2 ALB 3.6 g/dL (Normal) Range: 3.2-5.0 T PROT 7.2 g/dL (Normal) Range: 6.4-8.2 16-Bzv-128363:18 Serum Creatinine AND GFR Comments: [facility] Fpnobeybhn6[address] [place], [place], [address] EST GFR - AA 164 mL/min (Normal) Comments: GFR Calc EST GFR 135 mL/min (Normal) Comments: Non- GFR Calc CREAT,SERUM 0.49 mg/dL (Abnormal) Range: 0.55-1.02 Comments: The validity of the calculated GFR AND GFRAA in patients over70 years has not been determined. Clinical correlation isessential. :40 CBC-Complete Blood Cnt No Diff Comments: [facility] [address]is[address]jl[address] [place], [address] MPV 11.0 fL (Normal) Range: [...] 4.4-11.0 :40 CPK Total, Creatine Kinase Comments: [facility] [address] [place], [address] CPK TOTAL 1418 U/L (Abnormal) Range: 26-192 61-Ebn-36654:40 Liver Profile Comments: [facility] [address] [place], [address] D BILI 0.12 mg/dL (Normal) Range: 0.00-0.30 T BILI 0.60 mg/dL (Normal) Range: 0.20-1.00 ALT 59 U/L (Abnormal) Range: 13-56 Comments: Please note revised ALT reference range snhkzzibr05/28/2018. ALK P 48 U/L (Normal) Range: 45-117 AST 60 U/L (Abnormal) Range: 15-37 GLOB 3.6 g/dL (Normal) Range: 2.2-4.2 ALB 3.4 g/dL (Normal) Range: 3.2-5.0 T PROT 7.0 g/dL (Normal) Range: 6.4-8.2 60-Jye-37687:40 Serum Creatinine AND GFR Comments: [facility] Aud[address]vcqe[address] [place], [place], [address] EST GFR - AA 201 mL/min (Normal) Comments: GFR Calc EST GFR 166 mL/min (Normal) Comments: Non- GFR Calc CREAT,SERUM 0.41 mg/dL (Abnormal) Range: 0.55-1.02 Comments: The validity of the calculated GFR AND GFRAA in patients over70 years has not been determined. Clinical correlation isessential. 10-Bqd-517569:31 CBC-Complete Blood Cnt No Diff Comments: [facility] F[address]bpbvech64[address] [place], [place], [address] MPV 10.5 fL (Normal) Range: 6.2-12.0 PLT [...] 4.2-5.4 WBC 5.0 K/mm3 (Normal) Range: 4.4-11.0 07-Bys-246833:31 CPK Total, Creatine Kinase Comments: [facility] Uicbeiyjsh79[address] [place], [place], [address] CPK TOTAL 924 U/L (Abnormal) Range: 26-192 78-Rbz-032544:31 Liver Profile Comments: [facility] Ozadnurhya7[address] [place], [place], [address] D BILI 0.12 mg/dL (Normal) Range: 0.00-0.30 T BILI 0.70 mg/dL (Normal) Range: 0.20-1.00 ALT 49 U/L (Normal) Range: 12-78 ALK P 45 U/L (Normal) Range: 45-117 AST 49 U/L (Abnormal) Range: 15-37 GLOB 4.0 g/dL (Normal) Range: 2.2-4.2 ALB 3.6 g/dL (Normal) Range: 3.4-5.0 Comments: Please note revised Albumin AND Globulin reference rangeeffective 2017. T PROT 7.6 g/dL (Normal) Range: 6.4-8.2 38-Tfk-001366:31 Serum Creatinine AND GFR Comments: [facility] Eefkhynscw[address] [place], [place], [address] EST GFR - AA 142 mL/min (Normal) Comments: GFR Calc EST GFR 117 mL/min (Normal) Comments: Non- GFR Calc CREAT,SERUM 0.56 mg/dL (Normal) Range: 0.55-1.02 Comments: The validity of the calculated GFR AND GFRAA in patients over70 years has not been determined. Clinical correlation isessential. 96-Jdf-55420:18 CBC-Complete Blood Cnt No Diff Comments: [facility] Wgpsenvvgo75[address] [place], [place], [address] MPV 10.6 fL (Normal) Range: 6.2-12.0 PLT [...] 4.4-11.0 :18 CPK Total, Creatine Kinase Comments: [facility] [address] [place], [place], [address] CPK TOTAL 1718 U/L (Abnormal) Range: 26-192 :18 Liver Profile Comments: [facility] [address] [place], [place], [address] D BILI 0.14 mg/dL (Normal) Range: 0.00-0.30 [...] 6.4-8.2 :18 Serum Creatinine AND GFR Comments: [facility] [address] [place], [place], [address] EST GFR - AA 175 mL/min (Normal) Comments: GFR Calc EST GFR 145 mL/min (Normal) Comments: Non- GFR Calc CREAT,SERUM 0.46 mg/dL (Abnormal) Range: 0.55-1.02 Comments: The validity of the calculated GFR AND GFRAA in patients over70 years has not been determined. Clinical correlation isessential. 62-Taw-081309:43 Basic Metabolic Profile (BMP) Comments: [facility] [address] [place], [place], [address] GAP 9 (Normal) Range: 5-15 CO2 26.0 [...] 7-18 GLU 97 mg/dL (Normal) Range: 70-110 28-Tug-566202:43 CBC W/Diff, Automated Comments: [facility] Gyec[address]avvwk26[address] [place], [place], [address] OVALOCYTE RARE (Normal) MACROCYTE 1+ (Normal) PLT [...] 4.2-5.4 WBC 5.5 K/mm3 (Normal) Range: 4.4-11.0 42-Cbc-709028:43 CPK Total, Creatine Kinase Comments: [facility] [address] [place], [place], [address] CPK TOTAL 1846 U/L (Abnormal) Range: 26-192 58-Krh-880605:43 Liver Profile Comments: [facility] [address] [place], [place], [address] D BILI 0.17 mg/dL (Normal) Range: 0.00-0.30 T BILI 0.70 mg/dL (Normal) Range: 0.20-1.00 ALT 60 U/L (Normal) Range: 12-78 ALK P 55 U/L (Normal) Range: 45-117 AST 69 U/L (Abnormal) Range: 15-37 GLOB 3.4 g/dL (Normal) Range: 2.3-3.5 ALB 3.7 g/dL (Normal) Range: 3.4-5.0 T PROT 7.1 g/dL (Normal) Range: 6.4-8.2 09-Nwj-596403:26 Basic Metabolic Profile (BMP) Comments: [facility] [address] [place], [place], [address] GAP 6 (Normal) Range: 5-15 CO2 27.0 [...] 7-18 GLU 96 mg/dL (Normal) Range: 70-110 96-Ocl-563238:26 CBC W/Diff, Automated Comments: [facility] Gldbulomlp58[address] [place], [place], [address] Absolute Lymph 0.33 {X10_3/ul} (Abnormal) Range: 0.83-4.51 [...] 4.2-5.4 WBC 5.2 K/mm3 (Normal) Range: 4.4-11.0 79-Kjt-314886:26 CPK Total, Creatine Kinase Comments: [facility] B[address]jqzsf4[address] [place], [place], [address] CPK TOTAL 1661 U/L (Abnormal) Range: 26-192 97-Mrr-626371:26 Liver Profile Comments: [facility] Zgizxhqoci9310 [address] [place], [place], [address] D BILI 0.12 mg/dL (Normal) Range: 0.00-0.30 T BILI 0.60 mg/dL (Normal) Range: 0.20-1.00 ALT 54 U/L (Normal) Range: 12-78 ALK P 50 U/L (Normal) Range: 45-117 AST 58 U/L (Abnormal) Range: 15-37 GLOB 3.9 g/dL (Abnormal) Range: 2.3-3.5 ALB 3.6 g/dL (Normal) Range: 3.4-5.0 T PROT 7.5 g/dL (Normal) Range: 6.4-8.2 6-Taa-787582:44 CBC W/Diff, Automated Comments: ADD TO 0503:F041WFC TO 0503:O877LdxayzqJerry V[place] [address] [place], [address] SMEAR COMMENT COMMENT (Normal) Comments: [...] 4.2-5.4 WBC 5.4 K/mm3 (Normal) Range: 4.4-11.0 5-Fij-945761:42 CPK Total, Creatine Comments: ADD CPK/BMP/AHRYPYK6-4-[facility]ksnftz[facility] Zmuwvuoaju8965 [facility] [address]. [place], [place], [address] Kinase CPK TOTAL 1438 U/L (Abnormal) Range: 26-192 9-Wod-487209:42 CRP Comments: ADD CPK/BMP/XHZRNRD1-3-XRwwhtnrEast [facility] City Hospital Zeszrrokfh9806 [address] [place], [place], [address] C-REACTIVE PROT 4.67 mg/L (Abnormal) Range: 0.0-3.0 Comments: C-Reactive Protein (CRP) provides useful information for thediagnosis, therapy and monitoring of inflammatory processesand associated diseases. For the evaluation of Relative Riskfor Cardiovascular Dise ase, a High Sensitivity CRP (HSCRP)should be ordered. 5-Mko-101556:42 Erythrocyte Sed Rate Comments: [facility] Owvktusgul88[address] [place], [place], [address] SED RATE 39 mm/h (Abnormal) Range: 0-30 2-Slk-797686:42 Hepatitis ABC Profile Comments: [facility] (refer to report for specific site)refer to report for address and phone number COMMENT Comment (Normal) Comments: Non reactive HCV antibody screen is consistent with no HCVinfection, unless recent infection is suspected or otherevidence exists to indicate HCV infection.Performed at: - [facility] [address] [id number] Director: Arsh Cuellar PhD, Phone: [phone] HCV Ab <0.1 {s/co_ratio} (Normal) Range: 0.0-0.9 Hep B Michael AB Reactive (Normal) Comments: Non Reactive: Inconsistent with immunity, less than 10 mIU/mL Reactive: Consistent with immunity, greater than 9.9 mIU/mL HEP B CORE,TOT Negative (Normal) HB CORE [id number] Negative (Normal) HB SURF AG Negative (Normal) HEP A AB,T.6726 Positive (Abnormal) HEP A IgM 6734 Negative (Normal) 89-Ams-795691:35 Basic Metabolic Profile (BMP) Comments: [facility] [address] [facility] [address] [place], [place], [address] GAP 7 (Normal) Range: 5-15 CO2 26.0 [...] 7-18 GLU 105 mg/dL (Normal) Range: 70-110 84-Bia-090967:35 CBC W/Diff, Automated Comments: [facility] [address] [place], [place], [address] Absolute Lymph 0.28 {X10_3/ul} (Abnormal) Range: 0.83-4.51 [...] 4.2-5.4 WBC 5.3 K/mm3 (Normal) Range: 4.4-11.0 30-Qsu-554044:35 CPK Total, Creatine Kinase Comments: [facility] [address] [place], [place], [address] CPK TOTAL 2479 U/L (Abnormal) Range: 26-192 18-Quo-534757:35 Liver Profile Comments: [facility] [address]kqa[address] [facility] [address] [place], [place], [address] D BILI 0.17 mg/dL (Normal) Range: 0.00-0.30 T BILI 0.90 mg/dL (Normal) Range: 0.20-1.00 ALT 105 U/L (Abnormal) Range: 12-78 ALK P 52 U/L (Normal) Range: 45-117 AST 102 U/L (Abnormal) Range: 15-37 GLOB 3.6 g/dL (Abnormal) Range: 2.3-3.5 ALB 3.5 g/dL (Normal) Range: 3.4-5.0 T PROT 7.1 g/dL (Normal) Range: 6.4-8.2 :33 Basic Metabolic Profile (BMP) Comments: [facility] [address]vv[address] [place], [place], [address] GAP 9 (Normal) Range: 5-15 CO2 27.0 [...] Range: 70-110 :33 CBC W/Diff, Automated Comments: [facility] Vimjxedtkz037[address] [place], [place], [address] ANISO 2+ (Normal) Absolute Lymph 0.32 {X10_3/ul} [...] 4.2-5.4 WBC 4.8 K/mm3 (Normal) Range: 4.4-11.0 1-Iwp-720566:33 CPK Total, Creatine Kinase Comments: [facility] [address] [place], [place], [address] CPK TOTAL 2987 U/L (Abnormal) Range: 26-192 0-Uln-762628:33 Liver Profile Comments: [facility] [address] [place], [place], [address] D BILI 0.09 mg/dL (Normal) Range: 0.00-0.30 T BILI 0.60 mg/dL (Normal) Range: 0.20-1.00 ALT 120 U/L (Abnormal) Range: 12-78 ALK P 62 U/L (Normal) Range: 45-117 AST 115 U/L (Abnormal) Range: 15-37 GLOB 3.6 g/dL (Abnormal) Range: 2.3-3.5 ALB 3.5 g/dL (Normal) Range: 3.4-5.0 T PROT 7.1 g/dL (Normal) Range: 6.4-8.2 92-Exh-992886:54 Basic Metabolic Profile (BMP) Comments: [facility] [address] [place], [place], [address] GAP 11 (Normal) Range: 5-15 CO2 25.0 [...] 7-18 GLU 102 mg/dL (Normal) Range: 70-110 02-Qbq-251293:54 CBC W/Diff, Automated Comments: [facility] Mumkzkbpgx6618 [facility] [address] [place], [place], [address] POIK RARE (Normal) PLT EST ADEQUATE (Normal) [...] 4.2-5.4 WBC 5.1 K/mm3 (Normal) Range: 4.4-11.0 69-Cgk-193107:54 CPK Total, Creatine Kinase Comments: [address], [address] CPK TOTAL 1840 U/L (Abnormal) Range: 26-192 81-Lfl-419633:54 Liver Profile Comments: [address], [address] D BILI 0.13 mg/dL (Normal) Range: 0.00-0.30 T BILI 0.50 mg/dL (Normal) Range: 0.20-1.00 ALT 70 U/L (Normal) Range: 12-78 ALK P 56 U/L (Normal) Range: 45-117 AST 76 U/L (Abnormal) Range: 15-37 GLOB 3.7 g/dL (Abnormal) Range: 2.3-3.5 ALB 3.5 g/dL (Normal) Range: 3.4-5.0 T PROT 7.2 g/dL (Normal) Range: 6.4-8.2 44-Dcy-538772:55 TEMPORAL ARTERY BX See Note (Normal) Comments: [address], [address] Comments: Patient: SYLVIA RAMIREZ : 1955 (60/F) Acct Num: [id number] Phys: Keri HERRING,Lyndon Unit Num: [id number] Loc: [facility] Specimen: [id number] Received: 01/20/16 - 1814 Spec Type : [...] fixation serial sectioning. / AM:rickie 01/21/16 TC:5 CPT:50728, 63212 HEADER OPERATION: Left temporal artery biopsy PRE-OP DIAGNOSIS: Increased sed. rate; possible temporal arteri tis; S/P left temporal artery biopsy TISSUE SUBMITTED: Portion of left temporal artery MICROSCOPIC DESCRIPTION Slides are reviewed. MICROSCOPIC DIAGNOSIS Left temporal artery, biopsy: Negative for giant cell arteritis. Mild intimal hyperplasia. SJ:rickie 01/22/16 Signed Hi Hernandez 01/22/16 <signature on file> 57-Opp-96093:05 CBC W/Diff, Automated Comments: Order Date: 01/10/16[facility] Date[facility] Thcwvhlozx0338 [address] [place], [place], [address] SMEAR COMMENT SCANNED (Normal) Absolute Lymph 0.26 [...] :05 CRP Comments: Order Date: 01/10/16Order Date: 01/10/16[facility] [address] [place], [place], [address] C-REACTIVE PROT 192.00 mg/L (Abnormal) Range: 0.0-3.0 Comments: C-Reactive Protein (CRP) provides useful information for thediagnosis, therapy and monitoring of inflammatory processesand associated diseases. For the evaluation of Relative Riskfor Cardiovascular Dise ase, a High Sensitivity CRP (HSCRP)should be ordered. :05 Erythrocyte Sed Rate Comments: Order Date: 01/10/16Order Date: 01/10/16[facility] [address]rw[address] [place], [address] SED RATE 79 mm/h (Abnormal) Range: 0-30 :46 Basic Metabolic Profile (BMP) Comments: [facility] [address]bdlqkg6[address] [place], [address] GAP 3 (Abnormal) Range: 5-15 CO2 27.0 [...] <126 mg/dLsuggests IMPAIRED HOMEOSTASIS per A.D.A. criteria. 16-Npu-423672:46 CBC W/Diff, Automated Comments: [facility] [address]ax[address] [place], [place], [address] ANISO 1+ (Normal) PLT EST ADEQUATE (Normal) [...] : NEUROMA - See Note (Normal) Comments: [facility] [address] [place], [place], [address] 00 [facility]/TRAUMATIC Comments: Patient: SYLVIA RAMIREZ : 1955 (60/F) Acct Num: [id number] Phys: Omari Quinones DPMrey Unit Num: [id number] Loc: [place] Specimen: [id number] Received: 04/15/15 - 0755 Spec Type: N EUROMA TISSUES TISSUES: GROSS DESCRIPTION Received is one container labeled with the patient name and designated right third intermetatarsal space neuroma. The specimen consists of multiple pieces of wiley-yellow soft tissue measuring in aggregate 2.5 x 2 x 0.3 cm. The specimenis totally submitted in one cassette. 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 MICROSCOPIC DIAGNOSIS Soft tissue of right hand, third intermetatarsal space, excision: Consistent with neuroma. AM: 04/16/[address] [facility] 04/16/15 <signature on file> : BREAST BIOPSY (CHOOSE See Note (Normal) Comments: [facility] [address]kk[address] [place], [address] 10 SITE) Comments: Patient: SYLVIA RAMIREZ : 1955 (59/F) Acct Num: [id number] Phys: Preeti HERRING,Jaxon Unit Num: [id number] Loc: [facility] Specimen: [id number] Received: 02/06/151614 Spec Type: BREAST BX TISSUES [...] one cassette. / AM: 02/07/15 TC:5 CPT: 01959 HEADER OPERATION: U/S guided core biopsy left [...] CHOL 213 mg/dL (Abnormal) Comments: <200 mg/dL Wsoimdfyj320-398 mg/dL Borderline>240 mg/dL High Risk 08-Lnp-099935:03 PARATHORMONE (73180) Comments: PATIENT NOT FASTINGPERFORMED BY: CB [facility] Mynkha[address]Dublin [place] [id number] Information: I51795,2ND ORDER NO DRAW F EE PTH, Intact 23 pg/mL (Normal) Range: 15-65 51-Qzp-622102:02 TSH (THYROID STIMULATING Comments: PATIENT NOT FASTINGPERFORMED BY: [facility] Qbjumi45[address]Dublin [place] [id number] HORMONE) (58104) TSH 0.733 {uIU/mL} (Normal) Range: 0.450-4.500 59-Tpv-544857:02 CALCIFEDIOL (79314) Comments: PATIENT NOT FASTINGPERFORMED BY: [facility] Olxrin0777 [address] RoadDublin [place] [id number] Vitamin D, 25-Hydroxy 28.9 ng/mL (Abnormal) Range: 30.0-100.0 Comments: Vitamin D deficiency has been defined by the Rule ofMedicine and an Endocrine Society practice guideline as alevel of serum 25-OH vitamin D less than 20 ng/mL (1,2).The Endocrine Society went on to further define vitamin Dinsufficiency as a level between 21 and 29 ng/mL (2).1. IOM (Rule of Medicine). 2010. Dietary reference intakes for calcium and D. [place]: The National Academies Press.2. Fernie MF, Saida NC, Esdras JIMENEZ, et al. Evaluation, treatment, and prevention of vitamin D deficiency: an Endocrine Society clinical practice guideline. JCEM. 2010; 96(7):1911-30. 19-Dvk-170223:02 METABOLIC PANEL, Comments: PATIENT NOT FASTINGPERFORMED BY: CB [facility] Espuzl34[address]Dublin [place] [id number] Information: [id number] COMPREHENSIVE (10638) ALT (SGPT) 77 [iU]/L (Abnormal) Range: 0-32 [...] Glucose, Serum 110 mg/dL (Abnormal) Range: 65-99 29-Lka-721231:28 CBCD Comments: NO CHARGE REDRAW ANC 7.5 [...] 4.2-5.4 WBC 8.6 K/mm3 (Normal) Range: 4.4-11.0 65-Bzz-268220:29 SED Comments: NO CHARGE REDRAW tSEDRATE 20 mm/h (Normal) Range: 0-30 49-Xls-414454:42 Urinalysis, Office (68342) UA - LEUKOCYTE ESTERASE Negative (Normal) UA - NITRITE Negative (Normal) URINE UROBILINGN MARIE TIMED Normal mg/dL (Normal) UA - PROTEIN Negative mg/dL (Normal) UA - PH 7 (Normal) UA - BLOOD Negative (Normal) UA - SPECIFIC GRAVITY 1.020 (Normal) UA - KETONES Small mg/dL (Normal) UA - BILIRUBIN Negative (Normal) UA - GLUCOSE Negative (Normal) 4-Bkt-298349:38 Systemic Lupus Profile Comments: PATIENT NOT FASTINGPERFORMED BY: LabCoChristopher Ville [id number] [facility] [id number] Information: [id number] (31954) Anti-DNA (DS) Ab Qn 3 {IU/mL} (Normal) Range: 0-9 Comments: Negative <5 Equivocal 5 - 9 Positive >9 Sjogren's Anti-SS-B 0.2 {AI} (Normal) Range: 0.0-0.9 Sjogren's Anti-SS-A <0.2 {AI} (Normal) Range: 0.0-0.9 Antichromatin Antibodies <0.2 {AI} (Normal) Range: 0.0-0.9 RA Latex Turbid. 8.4 {IU/mL} (Normal) Range: 0.0-13.9 Iraheta Antibodies <0.2 {AI} (Normal) Range: 0.0-0.9 LARRIMAN HELPER Antibodies <0.2 {AI} (Normal) Range: 0.0-0.9 7-Uhe-404860:05 HAND MIN 3 VIEWS Radiology Report See [...] Sawant M.D.November 25 3 at 2:42:01 PM [id number] Signed GP/GP If you are the referring physician and would like to consult with theradiologist who provided this interpretation, please contact Amber calixto M.D. at [phone]. If this radiologist is unavailable, youwill be directed to another radiologist to assist. If you are a patient with a question regarding this report, pleasecontactyour referr ing physician directly. Professional Interpretation Provided By: [employer], Phone , These documents contain legally protected [...] 11/25/12 1454 Sign by: Tobin Sawant MD 7-Oqu-837588:04 HAND MIN 3 VIEWS Radiology Report See [...] swelling. Signed:Tobin Sawant M.D.November at 2:42:30 PM [id number] Signed GP/GP If you are the referring physician and would like to consult with theradiologist who provided this interpretation, please contact Tobin Sawant M.D. at [phone]. If this radiologist is unavailable, youwill be directed to another radiologist to assist. If you are a patient with a question regarding this report, pleasecontactyour [facility] physician directly. Professional Interpretation Provided By: [employer], Phone , These documents contain legally protected [...] 11/25/12 1454 Sign by: Tobin Sawant MD 3-Knc-130011:04 WRIST MIN 3 VIEWS Radiology See Note [...] Sawant M.D.November 25, 2012 at 2:43:33 PM [id number] Signed GP/GP If you are the referring physician and would like to co nsult with theradiologist who provided this interpretation, please contact Jaz Falk at [phone]. If this radiologist is unavailable, youwill be directed to another radiologist to [facility]. If you are a patient with a question regarding this report, pleasecontactyour referring physician directly. Professional Interpretation Provided By: [employer], Phone ,Fax These documents contain legally protected [...] 11/25/12 1456 Sign by: Tobin Sawant MD [id number] WRIST MIN 3 VIEWS Radiology See Note [...] Sawant M.D.November 25, 2012 at 2:42:31 PM [id number] Signed GP/GP If you are the referring physician and would like to con sult with theradiologist who provided this interpretation, please contact Jaz Falk at [phone]. If this radiologist is unavailable, youwill be directed to another radiologist to ed slaughter. If you are a patient with a question regarding this report, pleasecontactyour referring physician directly. Professional Interpretation Provided By: [employer], Phone , These documents contain legally protected [...] on 11/25/121456 Sign by: Tobin Sawant MD [id number] CCP ANTIBODY ([id number]) Comments: PATIENT NOT FASTINGPERFORMED BY: [facility] MedicalBach[facility] Institute for RehabilitationSxhriw9058 [facility] [id number] BY: [id number] [id number] CCP Antibodies IgG/IgA 21 {units} (Abnormal) Range: 0-19 Comments: Negative <20 Weak positive 20 - 39 Moderate positive 40 - 59 Strong positive >59 8-Ynf-578791:50 SED RATE ERYTHROCYTE Comments: PATIENT NOT FASTINGPERFORMED BY: [employer] ([employer])[facility] RehabilitationCkofzh0371 [facility] [id number] BY: MOBITRAC[address] [id number] ([id number]) Sedimentation Rate-Westergren 2 mm/h (Normal) Range: 0-40 6-Bjb-241533:50 C-REACTIVE PROTEIN (25253) Comments: PATIENT NOT FASTINGPERFORMED BY: [employer] ([employer])[facility] RehabilitationMcfver8448 [facility] [id number] BY: [address] [id number] C-Reactive Protein, Quant 1.6 mg/L (Normal) Range: 0.0-4.9 4-Fsu-747203:50 TSH (49884) Comments: PATIENT NOT FASTINGPERFORMED BY: [facility]6370 [facility] [id number] BY: [address] [id number] TSH 1.410 {uIU/mL} (Normal) Range: 0.450-4.500 3-Zcx-686341:50 RHEUMATOID FACTOR-QUANT Comments: PATIENT NOT FASTINGPERFORMED BY: [facility] [place] 8799170 [facility] [id number] BY: [address] [id number] ([id number]) RA Latex Turbid. 5.4 {IU/mL} (Normal) Range: 0.0-13.9 4-Hme-773984:50 PATRICK (ANTINUCLEAR ANTIBODY) Comments: PATIENT NOT FASTINGPERFORMED BY: [facility] 8799170 [facility] [id number] BY: [address] [id number] ([id number]) PATRICK Direct Positive (Abnormal) 2-Wdv-969175:50 CBC WITH MANUAL DIFF Comments: PATIENT NOT FASTINGPERFORMED BY: [facility] 8799170 [facility] [id number] BY: [address] [id number] Inf ormation: [id number] ([id number]) Immature Grans (Abs) 0.0 {x10E3/uL} (Normal) Range: [...] 3.77-5.28 WBC 4.7 {x10E3/uL} (Normal) Range: 4.0-10.5 2-Lqj-394576:50 METABOLIC PANEL, Comments: PATIENT NOT FASTINGPERFORMED BY: CB [facility] Qxxhuf5612 [facility] [id number] BY: BN [facility] [address] [id number] [facility] ([id number]) ALT (SGPT) 22 [iU]/L (Normal) Range: 0-32 [...] PANEL, COMPREHENSIVE Comments: PATIENT WAS FASTINGPERFORMED BY: LabCoBacharach Institute for RehabilitationCdgxqs4889 [facility] [id number] (40356) ALT (SGPT) 20 [iU]/L (Normal) Range: 0-40 [...] MANUAL DIFF Comments: PATIENT WAS FASTINGPERFORMED BY: [facility]6370 [facility] [id number] Information: [id number] (19517) Baso (Absolute) 0.0 {x10E3/uL} (Normal) Range: 0.0-0.2 [...] {x10E3/uL} (Abnormal) Range: 4.0-10.5 :18 LIPID PANEL (27805) Comments: PATIENT WAS FASTINGPERFORMED BY: [facility]CoB[facility]ar[facility] Institute for RehabilitationWsvvku5411 [facility] [id number] LDL Cholesterol Calc 128 mg/dL (Abnormal) Range: [...] Report See Note (Normal) Comments: Exam Number: [id number] UNILATERAL LEFT RIBS Several views of the [...] Report See Note (Normal) Comments: Exam Number: [id number] DORSAL SPINE AP and lateral views were [...] unspecified laterality Planned Observations METABOLIC PANEL, COMPREHENSIVE (00309)Indication: Hyperlipidemia, mild On: :49 Request LIPOPROTEIN, BLD, BY NMR (21777)Indication: Hyperlipidemia, mild On: :49 Request HEPATIC FUNCTION PANEL (96884)Indication: Hyperlipidemia, mild On: Request LIPOPROTEIN, BLD, BY NMR (94909)Indication: Hyperlipidemia, mild On: Request CBC, Platelets & Auto Diff (13538)Indication: Headache, occipital On: Request Comments: all labs stat C-Reactive Protein (84290)Indication: Headache, occipital On: : Request Sed Rate Erythrocyte (69609)Indication: Headache, occipital On: Request Sed Rate Erythrocyte (72395)Indication: Headache, occipital On: :09 Request LIPID PANEL (03573)Indication: Osteoarthrosis, not specified whether generalized/localized, lower leg On: Request Parathyroid Hormone-related Peptide (PTH-rP) (01785)Indication: Abnormal blood chemistry On: 47-Iwi-495055:02 Request METABOLIC PANEL, COMPREHENSIVE (68410)Indication: Swelling On: 15 Request Comments: Add to standing order to be done today CPK TOTAL & ISOENZYMES (63102)Indication: Elevated CPK On: :14 Request Comments: repeat today add to standing labs C-Reactive Protein (89377)Indication: Elevated CPK On: :14 Request Comments: include with standing labs today TSH (56649)Indication: Swelling On: :12 Request Comments: Add to current standing order for today only Print this for pt MICROALBUMIN URINE QUANT (02155)Indication: Swelling On: 43 Request MICROALBUMIN: CREATININE RATIO (20933) AND (38844)Indication: Swelling On: :43 Request EXTRCTBL NUCLR ANTGEN EA (29471) test code 232780Twgaopkhip: Abnormal blood chemistry On: Request ANTI-Sm (ANTI [place] ANTIBODY) (24130) test code 543810Qbukjndlwz: Abnormal blood chemistry On: Request ANTI-LARRIMAN HELPER (ANTI RIBONUCLEAR PROTEIN ANTIBODY) (93829) test code 331413Gwfxgrlknh: Abnormal blood chemistry On: Request DNA ANTIBODY-NATV/DBL ST (34641) test code 985763Qnithitbve: Abnormal blood chemistry On: 9-Mmm-360451:25 Request URINALYSIS (54888)Indication: Malignant neoplasm of breast (female) On: :27 Request CBC (Auto) (20451)Indication: Malignant neoplasm of breast (female) On: :22 Request Metabolic Panel, Comprehensive (22637)Indication: Malignant neoplasm of breast (female) On: : Request Planned Procedures MAMMOGRAM BREAST BILATERAL On: 21-Mar-2018 Intent SCREENING DIGITAL (54203)By: Lorena Talbot MD, MD, Dana M INJECTION, PROLIA (J0897)By: Visit, On: 24-Feb-2018 Intent Nurse Comments: [id number] syringer arm, SCMLONG Bone Density StudyBy: Dahiana HERRING, On: 01-Feb-2018 Intent Lorena Hopson MD Comments: due after 03-10-18 INJECTION, PROLIA (J0897)By: On: 14-Jul-2017 Intent Lorena Talbot MD, MD, Dana Comments: lot: [id number]: 09/2019site/route: R arm/SQamt: prefilled syringeVIS signed when applicableBLU Waters INJECTION, PROLIA (J0897)By: On: 17-Dec-2016 Lorena Holbrook MD, MD, Dana Comments: Lot:[id number]:02/11Dose:60mlRoute:sub q Site:r armGiven By:CHARLETTE signed M Radiology - ChestBy: Dahiana HERRING, On: 02-Jul-2016 Intent Lorena Hopson MD Comments: recheck approx. 4 weeks check before 08-03-16 follow up Radiology - Chest- PA and LatBy: On: 02-Jul-2016 Intent Lorena Talbot MD, MD, Dana M Inhaler Demo (14315)By: Dahiana HERRING, On: 02-Jul-2016 Intent Lorena Hopson MD Aerosol Treatment (06612)By: On: 02-Jul-2016 Intent Lorena Talbot MD, MD, Dana M INJECTION, PROLIA (J0897)By: On: 12-Jun-2016 Intent Lorena Talbot MD, MD, Dana Comments: lot: [id number]: 08/12site/route: R arm/SQamt: prefilled syringe 60mgVIS signed when applicableBLU Waters LE Arterial Exam - LowerBy: Dahiana On: 02-Apr-2016 Intent Lorena HERRING MD, Dana M Aerosol Treatment (58143)By: Dewayne On: 04-Mar-2015 Intent Pat GARCIA RIGHT MAMMOGRAM (46031)By: Dewayne On: 04-Mar-2015 Pat Patel CNP Breast Ultrasound - LeftBy: Dewayne On: 01-Jan-2015 Pat Patel CNP Comments: call results to [facility] at [facility] LEFT MAMMOGRAM (75788)By: Dewayne On: 01-Jan-2015 Intent Pat GARCIA Comments: call MMontrell Buchanan at [facility] with results Bone Density StudyBy: Dahiana HERRING, On: 31-Jan-2014 Intent Lorena Hopson MD BILATERAL MAMMOGRAMS (02294)By: On: 31-Jan-2014 Intent Lorena Talbot MD, MD, Dana M Kenalog Injection, 10 mgm On: 05-Dec-2013 Intent (J3301)By: Lorena Talbot MD Comments: lot: [id number]: 04/09site/route: L and R knee/joint injamt: 1cc [...] Bryan DO On: 08-Jun-2013 Intent Ear Irrigation (05694)By: Randi On: 08-Jun-2013 Intent Becky THOMAS Comments: small amt came out of both ears but still thin film on rim Radiology - Wrist - BilateralBy: On: 25-Nov-2012 Intent Becky Bryan DO Radiology - Hand - BilateralBy: On: 25-Nov-2012 Intent Becky Bryan DO IMMUNIZATION ADMIN (73194)By: On: 04-May-2012 Intent Katerina Broderick Comments: Lot:[id number]:07-30-13Dose:prefilledRoute:IMSite:R armGiven By:ALYSSA COMPLETE ON THIS DATE IMMUNIZATION ADMIN (11037)By: On: 09-Jun-2011 Intent Eneida Beth Comments: Lot:[id number]:01/30/13Amt:prefilledRoute:IMSite:right deltGiven By: KENNEDY Greene IMMUNIZATION ADMIN (73228)By: On: 11-May-2011 Intent Shavon Bunch LPN Comments: Lot #[id number]/1/13Site-right deltoidgiven by: Jeffrey Bunch LPN TDAP VACCINE >7 IM (63783)By: On: 04-May-2011 Intent Lorena Talbot MD, MD, Dana M IMMUNIZATION ADMIN (24254)By: On: 04-May-2011 Intent Lorena Talbot MD, MD, Dana M Kenalog Injection, 10 mgm On: 27-Jun-2010 Intent (J3301)By: Lorena Talbot MD, MD, Dana M Kenalog Injection, 10 mgm On: 27-Jun-2010 Intent (J3301)By: Lorena Talbot MD, MD, Dana M DXA, BONE DENSITY, AXIAL SKELETON On: 14-Nov-2009 Intent (22461)By: Lorena Talbot MD Comments: estrogen def, medication high risk Lorena Talbot MD Venous Doppler - LeftBy: Dahiana On: 25-Sep-2009 Intent Lorena HERRING MD, Dana M Comments: lower Glmxelqgy-Odf-Njxf (50496)By: On: 31-May-2009 Intent Dahiana HERRING, Lorena Hopson MD Comments: pain along rib M Radiology - Thoracic SpineBy: On: 31-May-2009 Intent Lorena Talbot MD, MD, Dana M PHYSICAL THERAPY EVALUATION On: 03-Apr-2008 Intent (75382)By: Dewayne GARCIA, Asuncion Radiology - ChestBy: Ciesa ROUGH PATCHER, On: 03-Apr-2008 Intent Asuncion Kenalog Injection, 10 [...] for Follow up acute care visit: In [place] and noted left arm red streak from [...] for Earache: will be leaving wednesday for [facility]. had sinusitis month ag o. feel great [...] Diagnosis: Obesity,unspecified (278.00), Carpel tunnel syndrome (354.0), [facility] End: 14-Nov-2009 13:25 [facility] [...] (left). Note for Calf pain: drove to [place] and at [employer]. wearing fit flops. in 4-10 left knee [...] incident not at work (working out at [employer]) and has been occurring in an intermittent [...] Osteoarthritis (715.96), Sleep disorder (780.50), Obesity,unspecified (278.00), [facility] Medicine Office Visit On: 31-May-2009 [...]
--- OUTSIDE RECORDS SUMMARY | 2018-05-19 10:08 | XMS RPT_ITS | Continuity of Care Document ---
:1955 Author Organization [facility] Address [address] [facility] [address] [place] [address] Phone Care Team Providers Name Role Phone [...] Active Cough (R05, 786.2) Comments: [place] in [place] here in [place]. some PND no reflux. Status: Active Deliveries (Parity) Comments: 2 Status: Active Disordered sleep (G47.9, 780.50) Comments: using calm day and working stay away from [facility]. 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 CPPD. Status: Inactive as of 11-Jul-2015 Lipoma (D17.9, 214.9) Status: Inactive as of 11-Jul-2015 Low back pain (M54.5, 724.2) Status: Inactive as of 03-Oct-2008 Malnutrition (E46, 263.9) Status: Inactive as of 11-Jul-2015 Neck pain (M54.2, 723.1) Status: Inactive as of 22-Sep-2016 Obesity, unspecified (E66.9, 278.00) Status: Inactive as of 22-Sep-2016 Osteoarthritis (M17.10, 715.96) [facility] compartment Status: [...] knee surgery left 1999 Completed bilateral foot [id number] Completed Carpal Tunnel Completed Comments: left 2010 Dr. Chandler Carpal Tunnel right wrist Completed Comments: Dr. Chandler 06-03-10 Colonoscopy Completed Comments: 11-06-13 Dr. Gimenez repeat in 10 years Hernia 1998 Completed Hysterectomy, Total Completed Comments: Dr. Mabry Lumpectomy Completed Comments: 06/2006-lft breast Tonsillectomy Completed Comments: 1959 Date Value Details 30-Nov-2017 Emergency Department Summary Result: Comments: See Note; NOTES: [facility] Medical Records Department [address] [facility] [place] [address] Emergency Department Summary 11/30/17 0934 MR#: [id number] Acct: [id number] Name: SYLVIA RAMIREZ Rep #: [id number] : 1955 62 From: Eliezer Ojeda DO PCP: Lorena Talbot MD Status: REG ER - ER Visit Summary Date of Service: 11/30/17 Chief Complaint: [] History of Present Il lness: The patient is a 62 F [] Physical Examination: [] Test Results: [] Emergency Department Course and Treatment: [] Treatment Plan: [] Disposition: [] Impression: [] This note was generated with Siineation software. It may contain incorrect words, spelling, and punctuation that were not noted in review of the chart prior to signing ED Disposition - Plan for ED Patient: Dispositio n: Home or Assisted Living Chief Complaint: Abd Pain Diagnosis: Right upper quadrant abdominal pain of unknown etiology Instructions: ED Abdominal Pain Unkn Cause Prescriptions: Hydrocodone Bitart/Apap 5-325 [Tunnelton 5MG-325MG] 1 tab PO Q6H PRN PRN 3 Days #10 tab PRN Reason: Pain Omeprazole [Prilosec] 20 mg PO DAILY #30 cap Referrals: Lorena Talbot MD [Primary Care Provider] - What to do if you have Problems For any increased pain, shortness of breath, bleeding, nausea or vomiting, chest pain, or any unexpected problems, contact your Primary Care Provider. Call [facility] ([phone]) or report to the closest Emergency Room. Call 911 if necessary. 11/30/17 0937 <Electronically signed by Eliezer Ojeda DO> Date Eliezer sanchez DO Cosigner Signature (If Indicated): Date CC: Lorena Talbot MD 30-Nov-2017 Emergency Department Summary Result: Comments: See Note; NOTES: [facility] Medical Records Department [address] [facility] [place] [address] Emergency Department Summary 11/30/17 0417 MR#: [id number] Acct: [id number] Name: SYLVIA RAMIREZ Rep #: [id number] : 1955 62 From: Bladimir Parikh MD PCP: Lorena Talbot MD Status: REG ER ADDENDUM by Eliezer Ojeda DO on 11/30/17 at 0934 Care of the patient was turned over to me a t 7 AM. Right upper quadrant ultrasound was obtained and was normal. Patient was given a prescription for Prilosec and a short course of Tunnelton. Patient was instructed to follow-up with her [...] given opti on of staying until the package checker presents in the morning for ultrasound or [...] and vomiting This note was generated with [employer] dictation software. It may contain incorrect words, [...] your Primary Care Provider. Call [facility] ([phone]) or report to the closest Emerge ncy Room. Call 911 if necessary. 11/30/17 0702 <Electronically signed by Bladimir Parikh MD> Date Bladimir Parikh MD Cosigner Signature (If Ind icated): Date CC: Lorena Talbot MD 30-Nov-2017 Emergency Department Summary Result: Comments: See Note; NOTES: [facility] Medical Records Department [address] [place] [address] Emergency Department Summary 11/30/17 0417 MR#: [id number] Acct: [id number] Name: SYLVIA RAMIREZ Rep #: [id number] : 1955 62 From: Bladimir Parikh MD [...] or night sweats. 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 She denies [...] was given option of staying until the package checker presents in the morning for ultrasound or [...] and vomiting This note was generated with [employer] oftware. It may contain incorrect words, [...] your Primary Care Provider. Call [facility] ([phone]) or report to the closest Emergency Room. Call 911 if necessary. 11/30/17 0702 <Electronically signed by Bladimir Parikh MD&#62 ; Date Bladimir Parikh MD Cosigner Signature (If Indicated): Date CC: Lorena Talbot MD 30-Nov-2017 Gallbladder Result: Comments: See Note; NOTES: [facility] Imaging Services [address] [place], [place] [address] [address] Gallbladder MR#: [id number] Acct: [id number] Name: SYLVIA RAMIREZ Rep #: [id number] : 1 05/18/1954 F 62 From: Joseph Tony DO PCP: Lorena Talbot MD Status: REG ER Study: Gallbladder Date of Exam: 11/30/17 Exam# [id number] Ordering Dr: Bladimir Parikh MD STUDY: ABDOMINAL [...] CC: Lorena Talbot MD; Bladimir Parikh MD Salvage Machine Operator: Signed 16-Mar-2017 SCREENING MAMM (CAD), BILAT Result: Comments: See Note; NOTES: [facility] Imaging Services [address] [place] [address] SCREENING MAMM (CAD), BILAT MR#: [id number] Acct: [id number] Name: SYLVIA RAMIREZ Rep #: [id number] : 1955 F 61 From: Tobin Sawant MD PCP: Lorena Talbot MD Status: REG CLI Study: SCREENING MAMM (CAD), BILAT Date of Exam: 03/16/17 Exam# [id number] Ordering Dr: Yomi Pérez AMMOGRAPHY - BILATERAL [...] delay biopsy of a clinically suspicious abnormality. [id number] Electronically Signed: Tobin Sawant MD at 10:39 EST Tel [phone], Service support , CC: Lorena Talbot MD; Yomi Pérez DO Salvage Machine Operator: Signed 02-Jul-2016 Chest PA and Lateral Result: Comments: See Note; NOTES: [facility] Imaging Services [address] [place] [address] Verdana 4d Chest PA and Lateral MR#: [id number] Acct: [id number] Name: SYLVIA RAMIREZ Rep #: [id number] : 1955 F 61 From: Yecenia Khan MD PCP: Lorena Talbot MD Status: REG CLI Study: Chest PA and Lateral Date of Exam: 07/02/16 Exam# [id number] Ordering Dr: Lorena Talbot MD STUDY: X-RAY [...] MD at 15:38 EST , Service support [phone], CC: Lorena Talbot MD Salvage Machine Operator: Signed 10-Apr-2016 Vascular Test/LEAS/UEAS Result: Comments: See Note; NOTES: [facility] Cardiovascular Services [address] [place] [address] Verdana 4d Lower Ext Art Exam w/o Exercis MR#: [id number] Acct: [id number] Name: SYLVIA GUADARRAMA Rep #: [id number] : 1955 61 From: Jim Martin MD [...] bilaterally. Jim Vidal MD T: NTS JOB: [id number] 04/10/16 1306 <Electronically signed by Jim Martin MD> Date Jim Martin MD CC: Lorena Talbot MD Date Dictated: 04/08/161722 Date Transcribed: 04/08/161722 Salvage Machine Operator: Signed 10-Mar-2016 Bilat Scrn Digital AND CAD Result: Comments: See Note; NOTES: [facility] Imaging Services [address] [place] [address] Verdana 4d Bilat Scrn Digital AND CAD MR#: [id number] Acct: [id number] Name: SYLVIA RAMIREZ Rep #: [id number] : 1955 F 60 From: Tobin Sawant MD PCP: Lorena Talbot MD Status: REG CLI Study: Bilat Scrn Digital AND CAD Date of Exam: 03/10/16 Exam# [id number] Ordering Dr: Jose Pérez ul DO MAMMOGRAPHY [...] these results will be sent to the [facility] by the facility within 30 days. Approximately 10% of breast cancers are not detected by mammography. A normal mammogram should not delay biopsy of a clinically suspicious abnormality. [id number] Elect ronically Signed: Tobin Sawant MD at 11:03 EST Tel [phone], Service support [phone], CC: Lorena Talbot MD; Yomi Pérez DO Salvage Machine Operator: Signed 10-Mar-2016 Dexa Bone Density Study (HP) Result: Comments: See Note; NOTES: [facility] Imaging Services [address] [place] [address] Verdana 4d Dexa Bone Density Study (HP) MR#: [id number] Acct: [id number] Name: MARCELA RAMIREZ Rep #: [id number] : 1955 F 60 From: Tobin Sawant MD PCP: Lorena Talbot MD Status: REG CLI Study: Dexa Bone Density Study (HP) Date of Exam: 03/10/16 Exam# [id number] Ordering Dr: KODY NESBITT STUDY: DUAL ENERGY [...] Tobin Sawant MD at 10:18 EST Tel [phone], Service support [phone], CC: Lorena Talbot MD; KODY NESBITT Salvage Machine Operator: Signed 07-Jul-2015 History and Physical Exam Result: Comments: See Note; NOTES: [facility] Medical Records Department [address] [place] [address] History and Physical 07/07/15 1809 MR#: [id number] Acct: [id number] Name: ANNAMARIASYLVIA Rep #: [id number] : 1955 60 From: Lucy Figueroa MD [...] presented to the emergency room [facility] of left upper extremity soreness, [...] [Vitamin 2,000 unit PO DAILY 07/07/15 D] Tilton-3 Fatty Acids/Fish Oil 2 each PO DAILY 07/07/15 [Tilton 3 1,000 mg Softgel] Turmeric [Turmeric Root] [...] 92.3 H Lymph % (Auto) 4.1 L Warren % (Auto) 2.2 Eos % (Auto) 1.0 [...] Subcu Lovenox. This note was generated with Siineation software. It may contain incorrect words, spelling, and punct uation that were not noted in checking the note before signing. 07/07/15 1818 <Electronically signed by Lucy Figueroa MD> Date Lucy Figueroa MD Cosigner Signature (if applicable): Date CC: Lorena Talbot MD; Lucy Figueroa Signed 18-Apr-2015 Operative Report Result: Comments: See Note; NOTES: [facility] Medical Records Department [address] [place] [address] Operative Report MR#: [id number] Acct: [id number] Name: KIRSTEN RAMIREZ Rep #: [id number] : 1955 60 From: Galileo Quinones DPM PCP: Lorena Talbot MD Status: [facility] DATE OF SERVICE: DATE OF SURGERY: April [...] needed. Galileo Quinones DPM T: NTS JOB: [id number] 04/18/15 0757 <Electronic ally signed by Galileo Quinones DPM> Date Galileo Quinones DPM Cosigner Signature (If Indicated): Date CC: Lorena Talbot MD; Galileo Quinones DPM Date Dictated: 04/12/15 1647 Date Transcribed: 04/12/151647 Salvage Machine Operator: Signed 12-Apr-2015 Discharge Instruction Result: Comments: See Note; NOTES: [facility] Medical Records Department [address] [place] [address] Instructions for Home/Discharge Instructions 04/12/15 1639 MR#: [id number] Acct: [id number] Name: SYLVIA RAMIREZ Rep #: [id number] : 1955 60 From: Galileo Quinones DPM PCP: Lorena Talbot MD Status: REG [facility] Discharge Diet: Light diet - advance as [...] and Lateral Result: Comments: See Note; NOTES: [facility] Imaging Services [address] [place] [address] Verdana 4d Chest PA and Lateral MR#: [id number] Acct: [id number] Name: ALICIA RAMIREZETTE Rep #: [id number] : 1955 F 60 From: Jose Fagan MD PCP: Lorena Talbot MD Status: PRE SDC Study: Chest PA and Lateral Date of Exam: 04/04/15 Exam# [id number] Ordering Dr: Virgen Quinones DPM STUDY: X-RAY [...] FACR at 13:58 EST , Service support [phone], RAD/Chest PA and Lateral IMPRESSION: No signs of acute cardiopulmonary disease Electronically Signed: Jose Fagan MD, FACR at 13:58 EST , Service support [phone], CC: Lorena Talbot MD; Galileo Quinones DPM Salvage Machine Operator: Signed 29-Mar-2015 EKG (86606) Comments: nsr no acute chg poor R wave progression Result: [MEASUREMENTS ANALYSIS] Date of Test: 03/29/2015 13:38:32; Heart Rate: 73; IA Interval: 180; QRS: 88; QT Interval: 380; Corrected QT Interval (QTc): 402; P Wave Lake[place]: 33; QRS Wave [place]: 30; T Wave [place]: 29; Blood Pressure: 120/78 [ECG DIAGNOSTIC STATEMENTS] Date of Test: 03/29/2015 13:38:32; Summary: Sinus Rhythm WITHIN NORMAL LIMITS -Mar-2015 Inital Evaluation - PT Result: Comments: See Note; NOTES: [facility] Physical Therapy [facility] [address] [place] [address] Fax REHABILITATION SE DEL CID INITIAL EVALUATION MR#: [id number] Acct: [id number] Name: SYLVIA RAMIREZ Rep #: [id number] : 1955 60 From: Gurdeep Carson Referring Dr.: Galileo Quinones DPM Status: REG RCR Ins urance: [facility] Evfl Date: Patient's Visit Information SYLVIA RAMIREZ is [...] to be FAXED BACK to us at [phone] for Medicare purposes. Please let me know if there are questions or concerns regarding this plan of care. Physician Signature: Date: <Electronically signed by Gurdeep Carson > 03/28/15 1140 CC: Lorena Talbot MD; Galileo Quinones DPM [facility] Jeanne d For Medicare only, by signing this I certify the plan of care. Physicians Signature Date 08-Mar-2015 Unilat Rt Scrn Digital AND CAD Result: Comments: See Note; NOTES: [facility] Imaging Services [address] [place] [address] Verdana 4d Unilat Rt Scrn Digital AND CAD MR#: [id number] Acct: [id number] Na me: SYLVIA RAMIREZ Rep #: [id number] : 1955 F 59 From: Tobin Sawant MD PCP: Lorena Talbot MD Status: REG CLI Study: Unilat Rt Scrn Digital AND CAD Date of Exam: 03/08/15 Exam# [id number] Ordering Dr: Pat Buchanan MAMMOGRAPHY - UNILATERAL [...] delay biopsy of a clinically suspicious abnormality. [id number] Electronically Signed: Tobin Sawant MD 201 09/03/12 at 11:11 EST Tel [phone], Service support [phone], CC: Pat Buchanan; Lorena Talbot MD Salvage Machine Operator: Signed 04-Mar-2015 Lower Ext/No Jt/w/o Result: Comments: See Note; NOTES: [facility] Imaging Services [address] [place] [address] Verdalila 4d Lower Ext/No Jt/w/o MR#: [id number] Acct: [id number] Name: Cirilo RAMIREZ Rep #: [id number] : 1955 F 59 From: Jose Fagan MD PCP: Lorena Talbot MD Status: REG CLI Study: Lower Ext/No Jt/w/o Date of Exam: 03/04/15 Exam# [id number] Ordering Dr: Ward Quinones DPM STUDY: MRI [...] at 10:47 EST Tel , Service support [phone], CC: Lorena Talbot MD; Galileo Quinones DPM Salvage Machine Operator: Signed 15-Jan-2015 Breast Limited Unilateral Result: Comments: See Note; NOTES: [facility] Imaging Services [address] [place] [address] Ultrasound Report MR#: [id number] Acct: [id number] Name: SYLVIA RAMIREZ Rep #: [id number] : 1955 F 59 From: Tobin Sawant MD PCP: Lorena Talbot MD Status: REG CLI Study: Breast Limited Unilateral Date of Exam: 01/15/15 Exam# [id number] Ordering Dr: Pat Buchanan STUDY : ULTRASOUND [...] Tobin Sawant MD at 13:27 EDT Tel [phone], Service support [phone], CC: Pat Buchanan ; Lorena Talbot MD Salvage Machine Operator: Signed 01-Jan-2015 Breast Limited Unilateral Result: Comments: See Note; NOTES: [facility] Imaging Services [address] [place] [address] Ultrasound Report MR#: [id number] Acct: [id number] Name: SYLVIA RAMIREZ Rep #: [id number] : 1955 F 59 From: Frantz Rojas MD PCP: Lorena Talbot MD Status: REG CLI Study: Breast Limited Unilateral Date of Exam: 01/01/15 Exam# [id number] Ordering Dr: Pat Buchanan STUDY: ULT RASOUND [...] at 15:39 EDT Tel , Service support [phone], CC: Pat Buchanan; Lorena Talbot MD Salvage Machine Operator: Signed 01-Jan-2015 Unilat Lt Diag Digital AND CAD Result: Comments: See Note; NOTES: [facility] Imaging Services [address] [place] [address] Breast Imaging Report MR#: [id number] Acct: [id number] Name: SYLVIA RAMIREZ Rep #: [id number] : 1955 F 59 From: Frantz Rojas MD PCP: Lorena Talbot MD Status: REG CLI Study: Unilat Lt Diag Digital AND CAD Date of Exam: 01/01/15 Exam# [id number] Ordering Dr: Pat Buchanan AMMOGRAPHY - UNILATERAL [...] t 15:34 EDT Tel , Service support [phone], CC: Pat Buchanan; Lorena Talbot MD Salvage Machine Operator: Signed 21-Feb-2014 Bilat Scrn Digital & CAD Result: Comments: See Note; NOTES: [facility] Imaging Services [address] [place] [address] Breast Imaging Report MR#: [id number] Acct: [id number] Name: SYLVIA RAMIREZ Rep #: [id number] : 1955 F 58 From: Tobin Sawant MD PCP: Lorena Talbot MD Status: REG CLI Exam# [id number] Ordering Dr: Lorena Talbot MD MAMMOGRAPHY - [...] MD 201 08/03/28 at 9:41 EDT Tel [phone], Service support [phone], CC: Lorena Talbot MD Salvage Machine Operator: Signed 21-Feb-2014 Dexa Bone Density Study (HP) Result: Comments: See Note; NOTES: [facility] Imaging Services [address] [place] [address] Bone Density Report MR#: [id number] Acct: [id number] Name: SYLVIA RAMIREZ Rep #: [id number] : 1955 F 58 From: Tobin Sawant MD PCP: Lorena Talbot MD Status: [facility] CLI Study: Dexa Bone Density Study (HP) Date of Exam: 02/21/14 Exam# [id number] Ordering Dr: Lorena Talbot MD STUDY: DUAL [...] Tobin Sawant MD at 12:35 EDT Tel [phone], Service support [phone], CC: Lorena Talbot MD Salvage Machine Operator: Signed 08-Feb-2014 PT Discharge Summary Result: Comments: See Note; NOTES: [facility] Physical Therapy [facility] [facility] [place] [address] Fax REHABILITATION SERVICES DISCHARGE SUMMARY MR#: [id number] Acct: [id number] Name: SYLVIA RAMIREZ Rep #: [id number] : 1955 58 From: Karrie Chris Referring [...] it is appropriate she be discharged from [facility] Physical Therapy and continue independent home exercise progra m. The patient was encouraged to call if she does have any questions or concerns. Karrie Chris DPT T: KRISHAN JOB: [id number] <Electronically signed by Karrie Chris > 02/08/14 0705 CC: Signed 02-Jan-2014 Inital Evaluation - PT Result: Comments: See Note; NOTES: [facility] Physical Therapy [facility] [address] [facility] [address] [facility] [facility] [place] [address] Fax REHABILITATION SERVICES INITIAL EVALUATION MR#: [id number] Acct: [id number] Name: SYLVIA RAMIREZ Rep #: [id number] : 1955 58 From: Karrie Chris Referring Dr.: Haile Aguilera DO Status: REG R [facility] Eval Date: DATE OF SERVICE: [...] On Wednesday she is leaving for [place] and will be gone for approximately 2 [...] with decreased pain. ERIN Bolton: KRISHAN JOB: [id number] <Electronically signed by Karrie Chris > 01/02/14 [...] Situation Comments: single lives alone, annie olivares [phone] dtr Status: Active No Drug Use Status: [...] 0.00 cm Results Date Description Value Details 30-Pab-689820:35 Methymalonic Acid, Serum Comments: PATIENT NOT FASTINGPERFORMED BY: [facility] [id number] BY: [facility] [employer] [facility] [id number] ([address]) Disclaimer: SPRCS (Normal) Comments: This test was developed and its performance characteristicsdetermined by [employer]. It has not been cleared or approvedby the Food and Drug Administration. Methylmalonic Acid, Serum 82 nmol/L (Normal) Range: 0-378 67-Vnj-325655:35 Vitamin B-12 Comments: PATIENT NOT FASTINGPERFORMED BY: [facility] [id number] BY: [facility] [employer] [facility] [id number] (cyanocobalamin) (00430) Vitamin B12 852 pg/mL (Normal) Range: 232-1245 36-Ryn-730075:35 HELICOBACTER PYLORI Comments: PATIENT NOT FASTINGPERFORMED BY: [facility] [facility] [employer] [facility] [id number] BY: [facility] [facility] [id number] ANTIBODY (28590) H. pylori, IgG Abs 0.17 {Index_Value} (Normal) Range: 0.00-0.79 Comments: Negative <0.80 Equivocal 0.80 - 0.89 Positive >0.89 92-Bsv-773491:35 Creatine Kinase Total Comments: PATIENT NOT FASTINGPERFORMED BY: [address] [id number] BY: [place] 7934370 [facility] [id number] ([address]) Creatine Kinase,Total 425 U/L (Abnormal) Range: 24-173 07-Hkc-160242:35 C-Reactive Protein Comments: PATIENT NOT FASTINGPERFORMED BY: [facility] [id number] BY: [address] [id number] ([address]) C-Reactive Protein, Quant 6.0 mg/L (Abnormal) Range: 0.0-4.9 30-Nov-20172:50 Basic Metabolic Profile (BMP) Comments: [facility] [address] [place], [address] GAP 10 (Normal) Range: 5-15 CO2 26.0 [...] A.D.A. criteria.Please note revised GLUCOSE reference range kgsobreow33/02/2018. :50 CBC W/Diff, Automated Comments: [facility] [address] [place], [place], [address] SMEAR COMMENT SCANNED (Normal) Absolute Lymph 0.21 [...] K/mm3 (Abnormal) Range: 4.4-11.0 :50 Lipase Comments: [facility] [address] [place], [address] LIPASE 171 U/L (Normal) Range: 73-393 30-Nov-20172:50 Liver Profile Comments: [address] [place], [id number] D BILI 0.27 mg/dL (Normal) Range: 0.00-0.30 T BILI 1.10 mg/dL (Abnormal) Range: 0.20-1.00 ALT 36 U/L (Normal) Range: 13-56 ALK P 46 U/L (Normal) Range: 45-117 AST 32 U/L (Normal) Range: 15-37 GLOB 3.9 g/dL (Normal) Range: 2.2-4.2 ALB 3.6 g/dL (Normal) Range: 3.2-5.0 T PROT 7.5 g/dL (Normal) Range: 6.4-8.2 01-Ytq-520063:27 CBC-Complete Blood Cnt No Diff Comments: [facility] [address] [place], [place], [id number] MPV 10.2 fL (Normal) Range: 6.2-12.0 PLT [...] 4.2-5.4 WBC 4.0 K/mm3 (Abnormal) Range: 4.4-11.0 00-Tpk-469331:27 CPK Total, Creatine Kinase Comments: [address] [place], [id number] CPK TOTAL 577 U/L (Abnormal) Range: 26-192 13-Swd-642957:27 Liver Profile Comments: [facility] [address] [place], [place], [address] D BILI 0.16 mg/dL (Normal) Range: 0.00-0.30 T BILI 0.90 mg/dL (Normal) Range: 0.20-1.00 ALT 36 U/L (Normal) Range: 13-56 ALK P 43 U/L (Abnormal) Range: 45-117 AST 33 U/L (Normal) Range: 15-37 GLOB 3.7 g/dL (Normal) Range: 2.2-4.2 ALB 3.8 g/dL (Normal) Range: 3.2-5.0 T PROT 7.5 g/dL (Normal) Range: 6.4-8.2 26-Efd-554155:27 Serum Creatinine AND GFR Comments: [facility] [address] [place], [place], [id number] EST GFR - AA 163 mL/min (Normal) Comments: GFR Calc EST GFR 135 mL/min (Normal) Comments: Non- GFR Calc CREAT,SERUM 0.49 mg/dL (Abnormal) Range: 0.55-1.02 Comments: The validity of the calculated GFR AND GFRAA in patients over70 years has not been determined. Clinical correlation isessential. 70-Kpf-238004:23 CBC W/Diff, Automated Comments: [facility] [address] [place], [place], [address] BASO STIP RARE (Normal) PLT EST ADEQUATE [...] :34 CBC-Complete Blood Cnt No Diff Comments: [facility] [address] [place], [place], [id number] MPV 10.1 fL (Normal) Range: 6.2-12.0 PLT [...] 4.4-11.0 :34 CPK Total, Creatine Kinase Comments: [facility] [address] [place], [place], [address] CPK TOTAL 909 U/L (Abnormal) Range: 26-192 :34 Liver Profile Comments: [facility] [facility] [address] [place], [address] D BILI 0.16 mg/dL (Normal) Range: 0.00-0.30 T BILI 0.70 mg/dL (Normal) Range: 0.20-1.00 ALT 49 U/L (Normal) Range: 13-56 ALK P 52 U/L (Normal) Range: 45-117 AST 44 U/L (Abnormal) Range: 15-37 GLOB 3.8 g/dL (Normal) Range: 2.2-4.2 ALB 3.5 g/dL (Normal) Range: 3.2-5.0 T PROT 7.3 g/dL (Normal) Range: 6.4-8.2 :34 Serum Creatinine AND GFR Comments: [facility] [address] [place], [place], [address] EST GFR - AA 192 mL/min (Normal) [...] B CORE,TOT Negative (Normal) Comments: Performed at: [facility] [place], [place] [id number] Director: Arsh Cuellar PhD, Phone: [phone] 39-Wtd-78559:23 Hepatitis C Antibodies Comments: Is Patient Fasting? [facility] (refer to report for specific site)refer to report for address and phone number HEP C AB 0.1 {s/co_ratio} (Normal) Range: 0.0-0.9 Comments: Negative: < 0.8 Indeterminate: 0.8 - 0.9 Positive: > 0.9 The CDC recommends that a positive HCV antibody result be followed up with a HCV Nucleic Acid Amplification test (811593). :23 Immunoglobulins G/A/M Comments: Is Patient Fasting? [facility] (refer to report for specific site)refer to report for address and phone number IMMUNOGL M 202 mg/dL (Normal) Range: 26-217 IMMUNO A 165 mg/dL (Normal) Range: 87-352 IMMUNO G 1092 mg/dL (Normal) Range: 700-1600 73-Xkl-932413:18 CBC-Complete Blood Cnt No Diff Comments: [facility] [address] [place], [place], [id number] MPV 11.1 fL (Normal) Range: 6.2-12.0 PLT [...] 4.2-5.4 WBC 4.9 K/mm3 (Normal) Range: 4.4-11.0 88-Gkt-297031:18 Liver Profile Comments: [facility] [address] [place], [address] D BILI 0.13 mg/dL (Normal) Range: 0.00-0.30 T BILI 0.60 mg/dL (Normal) Range: 0.20-1.00 ALT 56 U/L (Normal) Range: 13-56 Comments: Please note revised ALT reference range kreodlkau08/28/2018. ALK P 49 U/L (Normal) Range: 45-117 AST 57 U/L (Abnormal) Range: 15-37 GLOB 3.6 g/dL (Normal) Range: 2.2-4.2 ALB 3.6 g/dL (Normal) Range: 3.2-5.0 T PROT 7.2 g/dL (Normal) Range: 6.4-8.2 81-Jtw-740720:18 Serum Creatinine AND GFR Comments: [facility] [address] [facility] [address] [place], [place], [address] EST GFR - AA 164 mL/min (Normal) Comments: GFR Calc EST GFR 135 mL/min (Normal) Comments: Non- GFR Calc CREAT,SERUM 0.49 mg/dL (Abnormal) Range: 0.55-1.02 Comments: The validity of the calculated GFR AND GFRAA in patients over70 years has not been determined. Clinical correlation isessential. 87-Qor-19943:40 CBC-Complete Blood Cnt No Diff Comments: [facility] [address] [place], [address] MPV 11.0 fL (Normal) Range: [...] 4.4-11.0 :40 CPK Total, Creatine Kinase Comments: [facility] [address] [place], [address] CPK TOTAL 1418 U/L (Abnormal) Range: 26-192 19-Bpx-35091:40 Liver Profile Comments: [facility] [address] [place], [address] D BILI 0.12 mg/dL (Normal) Range: 0.00-0.30 T BILI 0.60 mg/dL (Normal) Range: 0.20-1.00 ALT 59 U/L (Abnormal) Range: 13-56 Comments: Please note revised ALT reference range imzcsukon19/28/2018. ALK P 48 U/L (Normal) Range: 45-117 AST 60 U/L (Abnormal) Range: 15-37 GLOB 3.6 g/dL (Normal) Range: 2.2-4.2 ALB 3.4 g/dL (Normal) Range: 3.2-5.0 T PROT 7.0 g/dL (Normal) Range: 6.4-8.2 :40 Serum Creatinine AND GFR Comments: [facility] [address] [place], [address] EST GFR - AA 201 mL/min (Normal) Comments: GFR Calc EST GFR 166 mL/min (Normal) Comments: Non- GFR Calc CREAT,SERUM 0.41 mg/dL (Abnormal) Range: 0.55-1.02 Comments: The validity of the calculated GFR AND GFRAA in patients over70 years has not been determined. Clinical correlation isessential. 50-Bed-844809:31 CBC-Complete Blood Cnt No Diff Comments: [facility] [address] [place], [address] MPV 10.5 fL (Normal) Range: 6.2-12.0 PLT [...] 4.2-5.4 WBC 5.0 K/mm3 (Normal) Range: 4.4-11.0 75-Mjf-066950:31 CPK Total, Creatine Kinase Comments: [facility] [address] [facility] [address] [place], [place], [address] CPK TOTAL 924 U/L (Abnormal) Range: 26-192 61-Iau-182716:31 Liver Profile Comments: [facility] [address] [place], [address] D BILI 0.12 mg/dL (Normal) [...] T PROT 7.6 g/dL (Normal) Range: 6.4-8.2 27-Yww-934825:31 Serum Creatinine AND GFR Comments: [facility] [address] [place], [place], [address] EST GFR - AA 142 mL/min (Normal) Comments: GFR Calc EST GFR 117 mL/min (Normal) Comments: Non- GFR Calc CREAT,SERUM 0.56 mg/dL (Normal) Range: 0.55-1.02 Comments: The validity of the calculated GFR AND GFRAA in patients over70 years has not been determined. Clinical correlation isessential. :18 CBC-Complete Blood Cnt No Diff Comments: [facility] [address] [place], [place], [address] MPV 10.6 fL (Normal) Range: 6.2-12.0 PLT [...] 4.2-5.4 WBC 5.3 K/mm3 (Normal) Range: 4.4-11.0 53-Ydl-83620:18 CPK Total, Creatine Kinase Comments: [facility] [address] [place], [place], [address] CPK TOTAL 1718 U/L (Abnormal) Range: 26-192 17-Zde-94060:18 Liver Profile Comments: [facility] [address] [place], [place], [address] D BILI 0.14 mg/dL (Normal) Range: 0.00-0.30 T BILI 0.60 mg/dL (Normal) Range: 0.20-1.00 ALT 58 U/L (Normal) Range: 12-78 ALK P 48 U/L (Normal) Range: 45-117 AST 60 U/L (Abnormal) Range: 15-37 GLOB 3.7 g/dL (Normal) Range: 2.2-4.2 ALB 3.5 g/dL (Normal) Range: 3.4-5.0 Comments: Please note revised Albumin AND Globulin reference rangeeffective 2017. T PROT 7.2 g/dL (Normal) Range: 6.4-8.2 00-Lch-40611:18 Serum Creatinine AND GFR Comments: [facility] [address] [place], [place], [address] EST GFR - AA 175 mL/min (Normal) Comments: GFR Calc EST GFR 145 mL/min (Normal) Comments: Non- GFR Calc CREAT,SERUM 0.46 mg/dL (Abnormal) Range: 0.55-1.02 Comments: The validity of the calculated GFR AND GFRAA in patients over70 years has not been determined. Clinical correlation isessential. 10-Lmo-967709:43 Basic Metabolic Profile (BMP) Comments: [facility] [address] [place], [address] GAP 9 (Normal) Range: 5-15 [...] 7-18 GLU 97 mg/dL (Normal) Range: 70-110 91-Bps-058110:43 CBC W/Diff, Automated Comments: [facility] [address] [place], [address] OVALOCYTE RARE (Normal) MACROCYTE 1+ [...] 4.2-5.4 WBC 5.5 K/mm3 (Normal) Range: 4.4-11.0 57-Nnj-843743:43 CPK Total, Creatine Kinase Comments: [facility] [address] [place], [place], [address] CPK TOTAL 1846 U/L (Abnormal) Range: 26-192 46-Yhw-610859:43 Liver Profile Comments: [facility] [address] [facility]. [place], [place], [address] D BILI 0.17 mg/dL (Normal) Range: 0.00-0.30 T BILI 0.70 mg/dL (Normal) Range: 0.20-1.00 ALT 60 U/L (Normal) Range: 12-78 ALK P 55 U/L (Normal) Range: 45-117 AST 69 U/L (Abnormal) Range: 15-37 GLOB 3.4 g/dL (Normal) Range: 2.3-3.5 ALB 3.7 g/dL (Normal) Range: 3.4-5.0 T PROT 7.1 g/dL (Normal) Range: 6.4-8.2 01-Ela-100809:26 Basic Metabolic Profile (BMP) Comments: [facility] [address] [place], [place], [address] GAP 6 (Normal) Range: 5-15 CO2 27.0 [...] 7-18 GLU 96 mg/dL (Normal) Range: 70-110 51-Bok-225022:26 CBC W/Diff, Automated Comments: [facility] [address] [place], [place], [address] Absolute Lymph 0.33 {X10_3/ul} (Abnormal) Range: 0.83-4.51 [...] 4.2-5.4 WBC 5.2 K/mm3 (Normal) Range: 4.4-11.0 52-Tyf-239233:26 CPK Total, Creatine Kinase Comments: [facility] [address] [place] [address], [address] CPK TOTAL 1661 U/L (Abnormal) Range: 26-192 97-Gws-981038:26 Liver Profile Comments: [address], [address] D BILI 0.12 mg/dL (Normal) Range: 0.00-0.30 T BILI 0.60 mg/dL (Normal) Range: 0.20-1.00 ALT 54 U/L (Normal) Range: 12-78 ALK P 50 U/L (Normal) Range: 45-117 AST 58 U/L (Abnormal) Range: 15-37 GLOB 3.9 g/dL (Abnormal) Range: 2.3-3.5 ALB 3.6 g/dL (Normal) Range: 3.4-5.0 T PROT 7.5 g/dL (Normal) Range: 6.4-8.2 7-Kql-262041:44 CBC W/Diff, Automated Comments: ADD TO 0503:H015YYE TO 0503:P253ThbmibjTrinity [facility] [address] [place] [address], [address] SMEAR COMMENT COMMENT (Normal) Comments: SLIDE [...] 4.2-5.4 WBC 5.4 K/mm3 (Normal) Range: 4.4-11.0 4-Ixn-174319:42 CPK Total, Creatine Comments: ADD CPK/BMP/NCBYHTF7-7-BFldpibrMemorial [facility] [address] [place], [place], [address] Kinase CPK TOTAL 1438 U/L (Abnormal) Range: 26-192 0-Hlp-482942:42 CRP Comments: ADD CPK/BMP/MQOEQFL5-5-LWfcupjeMemorial Health [facility] [address] [place], [place], [address] C-REACTIVE PROT 4.67 mg/L (Abnormal) Range: 0.0-3.0 Comments: C-Reactive Protein (CRP) provides useful information for thediagnosis, therapy and monitoring of inflammatory processesand associated diseases. For the evaluation of Relative Riskfor Cardiovascular Dise ase, a High Sensitivity CRP (HSCRP)should be ordered. 8-Mmi-033639:42 Erythrocyte Sed Rate Comments: [facility] [address] [place], [address] SED RATE 39 mm/h (Abnormal) Range: 0-30 8-Xjv-227815:42 Hepatitis ABC Profile Comments: [facility] (refer to report for specific site)refer to report for address and phone number COMMENT Comment (Normal) Comments: Non reactive HCV antibody screen is consistent with no HCVinfection, unless recent infection is suspected or otherevidence exists to indicate HCV infection.Performed at: [facility] [address] [id number] Director: Arsh Cuellar PhD, Phone: [phone] HCV Ab <0.1 {s/co_ratio} (Normal) Range: 0.0-0.9 Hep B Michael AB Reactive (Normal) Comments: Non Reactive: Inconsistent with immunity, less than 10 mIU/mL Reactive: Consistent with immunity, greater than 9.9 mIU/mL HEP B CORE,TOT Negative (Normal) HB CORE [id number] Negative (Normal) HB SURF AG Negative (Normal) HEP A AB,T.6726 Positive (Abnormal) HEP A IgM 6734 Negative (Normal) 66-Chn-382861:35 Basic Metabolic Profile (BMP) Comments: [facility] [address] [place], [address] GAP 7 (Normal) Range: 5-15 [...] 7-18 GLU 105 mg/dL (Normal) Range: 70-110 49-Xfm-912936:35 CBC W/Diff, Automated Comments: [facility] [address] [place], [place], [address] Absolute Lymph 0.28 {X10_3/ul} (Abnormal) Range: 0.83-4.51 [...] 4.2-5.4 WBC 5.3 K/mm3 (Normal) Range: 4.4-11.0 59-Jht-514345:35 CPK Total, Creatine Kinase Comments: [facility] [address] [place], [place], [address] CPK TOTAL 2479 U/L (Abnormal) Range: 26-192 64-Cgw-726665:35 Liver Profile Comments: [facility] [address] [place], [place], [address] D BILI 0.17 mg/dL (Normal) Range: 0.00-0.30 T BILI 0.90 mg/dL (Normal) Range: 0.20-1.00 ALT 105 U/L (Abnormal) Range: 12-78 ALK P 52 U/L (Normal) Range: 45-117 AST 102 U/L (Abnormal) Range: 15-37 GLOB 3.6 g/dL (Abnormal) Range: 2.3-3.5 ALB 3.5 g/dL (Normal) Range: 3.4-5.0 T PROT 7.1 g/dL (Normal) Range: 6.4-8.2 1-Ozn-830441:33 Basic Metabolic Profile (BMP) Comments: [facility] [address] [place], [place], [address] GAP 9 (Normal) Range: 5-15 CO2 27.0 [...] 7-18 GLU 94 mg/dL (Normal) Range: 70-110 2-Bmr-724616:33 CBC W/Diff, Automated Comments: [facility] [address] [place], [address] ANISO 2+ (Normal) Absolute Lymph [...] 4.2-5.4 WBC 4.8 K/mm3 (Normal) Range: 4.4-11.0 5-Bcz-948121:33 CPK Total, Creatine Kinase Comments: [facility] [address] [place], [place], [address] CPK TOTAL 2987 U/L (Abnormal) Range: 26-192 8-Gqr-007818:33 Liver Profile Comments: [facility] [address] [place], [place], [address] D BILI 0.09 mg/dL (Normal) Range: 0.00-0.30 T BILI 0.60 mg/dL (Normal) Range: 0.20-1.00 ALT 120 U/L (Abnormal) Range: 12-78 ALK P 62 U/L (Normal) Range: 45-117 AST 115 U/L (Abnormal) Range: 15-37 GLOB 3.6 g/dL (Abnormal) Range: 2.3-3.5 ALB 3.5 g/dL (Normal) Range: 3.4-5.0 T PROT 7.1 g/dL (Normal) Range: 6.4-8.2 77-Tnf-758811:54 Basic Metabolic Profile (BMP) Comments: [facility] [address] [place], [place], [address] GAP 11 (Normal) Range: 5-15 CO2 25.0 [...] 7-18 GLU 102 mg/dL (Normal) Range: 70-110 29-Drj-544349:54 CBC W/Diff, Automated Comments: [facility] [address] [place], [place], [address] POIK RARE (Normal) PLT EST ADEQUATE (Normal) [...] 4.2-5.4 WBC 5.1 K/mm3 (Normal) Range: 4.4-11.0 26-Dtd-874036:54 CPK Total, Creatine Kinase Comments: [facility] [address] [place], [place], [address] CPK TOTAL 1840 U/L (Abnormal) Range: 26-192 64-Haa-546111:54 Liver Profile Comments: [facility] [address] [place], [place], [address] D BILI 0.13 mg/dL (Normal) Range: 0.00-0.30 T BILI 0.50 mg/dL (Normal) Range: 0.20-1.00 ALT 70 U/L (Normal) Range: 12-78 ALK P 56 U/L (Normal) Range: 45-117 AST 76 U/L (Abnormal) Range: 15-37 GLOB 3.7 g/dL (Abnormal) Range: 2.3-3.5 ALB 3.5 g/dL (Normal) Range: 3.4-5.0 T PROT 7.2 g/dL (Normal) Range: 6.4-8.2 :55 TEMPORAL ARTERY BX See Note (Normal) Comments: [facility] [address] [place], [place], [address] Comments: Patient: SYLVIA RAMIREZ : 1955 (60/F) Acct Num: [id number] Phys: Lyndon Saavedra MD Unit Num: [id number] Loc: [facility]SPEC Specimen: [id number] Received: 01/20/161813 Spec Type : TEMPORAL TISSUES TISSUES: COMMENT Elastic stain with matched control is used in the evaluation of the specimen. GROSS DESCRIPTION Received is one container labeled with the pat ient's name and designated left temporal artery. The specimen consists of a single elongated fragment of wiley tissue measuring 0.5 x <0.1 x <0.1 cm. The specimen is totally submitted in [facility] ette for post fixation serial sectioning. / AM:rickie 01/21/16 TC:5 CPT:52516, 77998 HEADER OPERATION: Left temporal artery biopsy PRE-OP [...] W/Diff, Automated Comments: Order Date: 01/10/16[facility] [address]plc[address] [place], [place], [address] SMEAR COMMENT SCANNED (Normal) Absolute Lymph 0.26 [...] :05 CRP Comments: Order Date: 01/10/16Order Date: [facility]16[facility] [address] [place], [place], [address] C-REACTIVE PROT 192.00 mg/L (Abnormal) Range: 0.0-3.0 Comments: C-Reactive Protein (CRP) provides useful information for thediagnosis, therapy and monitoring of inflammatory processesand associated diseases. For the evaluation of Relative Riskfor Cardiovascular Dise ase, a High Sensitivity CRP (HSCRP)should be ordered. :05 Erythrocyte Sed Rate Comments: Order Date: 01/10/16Order Date: [facility]10[facility]16[facility] [address] [place], [address] SED RATE 79 mm/h (Abnormal) Range: 0-30 06-Tos-038212:46 Basic Metabolic Profile (BMP) Comments: [facility] [address] [place], [address] GAP 3 (Abnormal) Range: 5-15 CO2 27.0 [...] A.D.A. criteria. :46 CBC W/Diff, Automated Comments: [facility] [address] [place], [address] ANISO 1+ (Normal) PLT EST ADEQUATE (Normal) [...] (Abnormal) WBC 5.1 K/mm3 (Normal) Range: 4.4-11.0 52-Uxu-931334: NEUROMA - See Note (Normal) Comments: [facility] [address] [place], [address] FOUNTAIN'S/TRAUMATIC Comments: Patient: SYLVIA RAMIREZ : 1955 (60/F) Acct Num: [id number] Phys: Stacie [facility] Unit Num: [id number] Loc: [facility] Specimen: [id number] Received: 04/15/15 - 0755 Spec Type: N EUROMA TISSUES TISSUES: GROSS DESCRIPTION Received is one container labeled with the patient name and designated right third intermetatarsal space neuroma. The specimen consists of multiple pieces of wiley-yellow soft tissue measuring in aggregate 2.5 x 2 x 0.3 cm. The specimenis totally submitted in one cassette. 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 MICROSCOPIC DIAGNOSIS Soft tissue of right hand, third intermetatarsal space, excision: Consistent with neuroma. AM: 04/16/15 Signed [facility] 04/16/15 <signature on file> 15-Fbu-100120: BREAST BIOPSY (CHOOSE See Note (Normal) Comments: [facility] [address] [place], [address] 10 SITE) Comments: Patient: SYLVIA RAMIREZ : 1955 (59/F) Acct Num: [id number] Phys: Preeti HERRING,Jaxon Unit Num: [id number] Loc: LABSPEC Specimen: [id number] Received: 02/06/151614 Spec Type: BREAST BX TISSUES [...] one cassette. / AM: 02/07/15 TC:5 CPT: 28439 HEADER OPERATION: U/S guided core biopsy left [...] CHOL 213 mg/dL (Abnormal) Comments: <200 mg/dL Vrgqlrfer433-355 mg/dL Borderline>240 mg/dL High Risk 35-Mnh-553350:03 PARATHORMONE (15820) Comments: PATIENT NOT FASTINGPERFORMED BY: Poq StudioFormerly [facility] [id number] Information: [id number],2ND ORDER NO DRAW F EE PTH, Intact 23 pg/mL (Normal) Range: 15-65 99-Lwb-249785:02 TSH (THYROID STIMULATING Comments: PATIENT NOT FASTINGPERFORMED BY: [employer] LabChirpifyrp Iqbvjs7771 [employer] TechnologyFormerly [facility] [id number] HORMONE) (59435) TSH 0.733 {uIU/mL} (Normal) Range: 0.450-4.500 :02 CALCIFEDIOL (90022) Comments: PATIENT NOT FASTINGPERFORMED BY: [employer] [facility] Hecmzc4172 [facility] [place] [id number] Vitamin D, 25-Hydroxy 28.9 ng/mL (Abnormal) Range: 30.0-100.0 Comments: Vitamin D deficiency has been defined by the [place] ofMedicine and an Endocrine Society practice guideline as alevel of serum 25-OH vitamin D less than 20 ng/mL (1,2).The Endocrine Society went on to further define vitamin Dinsufficiency as a level between 21 and 29 ng/mL (2).1. IOM ([place] of Medicine). 2010. Dietary reference intakes for calcium and D. [place]: The National Academies Press.2. Fernie FERGUSON, Saida OCONNOR, Esdras JIMENEZ, et al. Evaluation, treatment, and prevention of vitamin D deficiency: an Endocrine Society clinical practice guideline. JCEM. 2010; 96(7):1911-30. 99-Iki-573177:02 METABOLIC PANEL, Comments: PATIENT NOT FASTINGPERFORMED BY: STEPH [facility] Pmxolp2511 [facility] [id number] Information: [id number] COMPREHENSIVE (80101) ALT (SGPT) 77 [iU]/L (Abnormal) Range: 0-32 [...] Glucose, Serum 110 mg/dL (Abnormal) Range: 65-99 03-Gld-493541:28 CBCD Comments: NO CHARGE REDRAW ANC 7.5 [...] 4.2-5.4 WBC 8.6 K/mm3 (Normal) Range: 4.4-11.0 40-Wvn-747599:29 SED Comments: NO CHARGE REDRAW tSEDRATE 20 mm/h (Normal) Range: 0-30 76-Jlw-382744:42 Urinalysis, Office (00838) UA - LEUKOCYTE ESTERASE Negative (Normal) UA - NITRITE Negative (Normal) URINE UROBILINGN MARIE TIMED Normal mg/dL (Normal) UA - PROTEIN Negative mg/dL (Normal) UA - PH 7 (Normal) UA - BLOOD Negative (Normal) UA - SPECIFIC GRAVITY 1.020 (Normal) UA - KETONES Small mg/dL (Normal) UA - BILIRUBIN Negative (Normal) UA - GLUCOSE Negative (Normal) 6-Hqp-717302:38 Systemic Lupus Profile Comments: PATIENT NOT FASTINGPERFORMED BY: LabCoUnion County General HospitalBbfdbv2436 [facility] [id number] Information: [id number] (99925) Anti-DNA (DS) Ab Qn 3 {IU/mL} (Normal) Range: 0-9 Comments: Negative <5 Equivocal 5 - 9 Positive >9 Sjogren's Anti-SS-B 0.2 {AI} (Normal) Range: 0.0-0.9 Sjogren's Anti-SS-A <0.2 {AI} (Normal) Range: 0.0-0.9 Antichromatin Antibodies <0.2 {AI} (Normal) Range: 0.0-0.9 RA Latex Turbid. 8.4 {IU/mL} (Normal) Range: 0.0-13.9 Iraheta Antibodies <0.2 {AI} (Normal) Range: 0.0-0.9 EARTH SCIENCE TECHNICAL OFFICER Antibodies <0.2 {AI} (Normal) Range: 0.0-0.9 3-Lcv-120062:05 HAND MIN 3 VIEWS Radiology Report See [...] Signed:Tobin Sawant M.D.November 25 at 2:42:01 PM [id number] Signed GP/GP If you are the referring physician and would like to consult with theradiologist who provided this interpretation, please contact Amber calixto M.D. at [phone]. If this radiologist is unavailable, youwill be directed to another radiologist to assist. If you are a patient with a question regarding this report, pleasecontactyour referr ing physician directly. Professional Interpretation Provided By: [employer], Phone , These documents contain legally protected [...] on 11/25/124 Sign by: Tobin Sawant MD 9-Ujv-008408:04 HAND MIN 3 VIEWS Radiology Report See [...] swelling. Signed:Tobin Sawant M.D.November at 2:42:30 PM [id number] Signed GP/GP If you are the referring physician and would like to consult with theradiologist who provided this interpretation, please contact Tobin Sawant M.D. at [phone]. If this radiologist is unavailable, youwill be directed to another radiologist to assist. If you are a patient with a question regarding this report, pleasecontactyoanur daniel fry physician directly. Professional Interpretation Provided By: [employer], Phone , These documents contain legally protected [...] 11/25/12 1454 Sign by: Tobin Sawant MD 0-Von-856627:04 WRIST MIN 3 VIEWS Radiology See Note [...] Sawant M.D.November 25, 2012 at 2:42:31 PM [id number] Signed GP/GP If you are the referring physician and would like to con sult with theradiologist who provided this interpretation, please contact Jaz Falk at [phone]. If this radiologist is unavailable, youwill be directed to another radiologist to ed slaughter. If you are a patient with a question regarding this report, pleasecontactyour referring physician directly. Professional Interpretation Provided By: [employer], Phone , These documents contain legally protected [...] 11/25/12 1457 Sign by: Tobin Sawant MD 3-Ohx-157712:04 WRIST MIN 3 VIEWS Radiology See Note [...] Sawant M.D.November 25, 2012 at 2:43:33 PM [id number] Signed GP/GP If you are the referring physician and would like to co nsult with theradiologist who provided this interpretation, please contact Jaz Falk at [phone]. If this radiologist is unavailable, youwill be directed to another radi[facility] to [facility]. If you are a patient with a question regarding this report, pleasecontactyour referring physician directly. Professional Interpretation Provided By: [employer], Phone ,Fax These documents contain legally protected [...] 11/25/12 1456 Sign by: Tobin Sawant MD 2-Jpt-463702:50 CCP ANTIBODY ([id number]) Comments: PATIENT NOT FASTINGPERFORMED BY: CB [facility] [id number] [facility] [id number] BY: [facility] [address] [id number] CCP Antibodies IgG/IgA 21 {units} (Abnormal) Range: 0-19 Comments: Negative <20 Weak positive 20 - 39 Moderate positive 40 - 59 Strong positive >59 [id number] SED RATE ERYTHROCYTE Comments: PATIENT NOT FASTINGPERFORMED BY: CB [facility] Gpdoyr2107 [facility] [place] [id number] BY: [address] [id number] ([id number]) Sedimentation Rate-Westergren 2 mm/h (Normal) Range: 0-40 3-Tel-777642:50 C-REACTIVE PROTEIN (72990) Comments: PATIENT NOT FASTINGPERFORMED BY: [facility] Ziyejo6496 [facility] [id number] BY: [address] [id number] C-Reactive Protein, Quant 1.6 mg/L (Normal) Range: 0.0-4.9 7-Acg-071971:50 TSH (74279) Comments: PATIENT NOT FASTINGPERFORMED BY: [facility] Sxfvot4957 [facility] [id number] BY: [address] [id number] TSH 1.410 {uIU/mL} (Normal) Range: 0.450-4.500 4-Gxp-981638:50 RHEUMATOID FACTOR-QUANT Comments: PATIENT NOT FASTINGPERFORMED BY: [facility]6370 [facility] [id number] BY: [address] [id number] ([id number]) RA Latex Turbid. 5.4 {IU/mL} (Normal) Range: 0.0-13.9 8-Evl-200958:50 PATRICK (ANTINUCLEAR ANTIBODY) Comments: PATIENT NOT FASTINGPERFORMED BY: [facility] Djqohd7337 [facility] [id number] BY: [address] [id number] ([id number]) PATRICK Direct Positive (Abnormal) 3-Auz-158155:50 CBC WITH MANUAL DIFF Comments: PATIENT NOT FASTINGPERFORMED BY: [facility] Utiwlc3540 [facility] [id number] BY: [place] [address] [facility] [id number] Inf ormation: [id number] (64073) Immature Grans (Abs) 0.0 {x10E3/uL} (Normal) Range: [...] 3.77-5.28 WBC 4.7 {x10E3/uL} (Normal) Range: 4.0-10.5 1-Onm-987524:50 METABOLIC PANEL, Comments: PATIENT NOT FASTINGPERFORMED BY: LabCoThe Valley HospitalTixfjy7982 [facility] [id number] BY: LabChirpifyLeslie [place] 054067 [facility] [id number] COMPREHENSIVE ([id number]) ALT (SGPT) 22 [iU]/L (Normal) Range: 0-32 [...] COMPREHENSIVE Comments: PATIENT WAS FASTINGPERFORMED BY: STEPH [place] [employer] Rnwyje8464 [facility] [id number] ([id number]) ALT (SGPT) 20 [iU]/L (Normal) Range: 0-40 [...] MANUAL DIFF Comments: PATIENT WAS FASTINGPERFORMED BY: [place] [employer] Dpolvf1646 [facility] [id number] Information: [id number] (65578) Baso (Absolute) 0.0 {x10E3/uL} (Normal) Range: 0.0-0.2 [...] {x10E3/uL} (Abnormal) Range: 4.0-10.5 31-Jul-20099:18 LIPID PANEL (69393) Comments: PATIENT WAS FASTINGPERFORMED BY: LabCoN[place] [id number] [facility] [id number] LDL Cholesterol Calc 128 mg/dL (Abnormal) Range: [...] Report See Note (Normal) Comments: Exam Number: [id number] UNILATERAL LEFT RIBS Several views of the [...] Report See Note (Normal) Comments: Exam Number: [id number] DORSAL SPINE AP and lateral views were [...] unspecified laterality Planned Observations METABOLIC PANEL, COMPREHENSIVE (72741)Indication: Hyperlipidemia, mild On: :49 Request LIPOPROTEIN, BLD, BY NMR (89776)Indication: Hyperlipidemia, mild On: :49 Request HEPATIC FUNCTION PANEL (20439)Indication: Hyperlipidemia, mild On: :28 Request LIPOPROTEIN, BLD, BY NMR (58752)Indication: Hyperlipidemia, mild On: :28 Request CBC, Platelets & Auto Diff (83498)Indication: Headache, occipital On: :26 Request Comments: all labs stat C-Reactive Protein (53641)Indication: Headache, occipital On: : Request Sed Rate Erythrocyte (36957)Indication: Headache, occipital On: : Request Sed Rate Erythrocyte (48656)Indication: Headache, occipital On: :09 Request LIPID PANEL (47366)Indication: Osteoarthrosis, not specified whether generalized/localized, lower leg On: 8-Fim-809667:11 Request Parathyroid Hormone-related Peptide (PTH-rP) (14683)Indication: Abnormal blood chemistry On: 04-Pkb-085566:02 Request METABOLIC PANEL, COMPREHENSIVE (15837)Indication: Swelling On: :15 Request Comments: Add to standing order to be done today CPK TOTAL & ISOENZYMES (18278)Indication: Elevated CPK On: 62-Dxo-270893:14 Request Comments: repeat today add to standing labs C-Reactive Protein (72948)Indication: Elevated CPK On: 49-Wje-835026:14 Request Comments: include with standing labs today TSH (47943)Indication: Swelling On: 25-Mkt-734117:12 Request Comments: Add to current standing order for today only Print this for pt MICROALBUMIN URINE QUANT (81379)Indication: Swelling On: 68-Kxb-582151:43 Request MICROALBUMIN: CREATININE RATIO (62039) AND (55037)Indication: Swelling On: :43 Request EXTRCTBL NUCLR ANTGEN EA (98680) test code 420047Kfgleyprpj: Abnormal blood chemistry On: : Request ANTI-Sm (ANTI IRAHETA ANTIBODY) (26774) test code 432001Ffkyxdhpre: Abnormal blood chemistry On: Request ANTI-EARTH SCIENCE TECHNICAL OFFICER (ANTI RIBONUCLEAR PROTEIN ANTIBODY) (25011) test code 442528Szelfseggj: Abnormal blood chemistry On: Request DNA ANTIBODY-NATV/DBL ST (22012) test code 600736Wpuvbiqljh: Abnormal blood chemistry On: Request URINALYSIS (76351)Indication: Malignant neoplasm of breast (female) On: :27 Request CBC (Auto) (72408)Indication: Malignant neoplasm of breast (female) On: :22 Request Metabolic Panel, Comprehensive (25805)Indication: Malignant neoplasm of breast (female) On: :22 Request Planned Procedures INJECTION, PROLIA (J0897)By: On: 24-Feb-2018 Intent Visit, Nurse Comments: [id number] syringer arm, SCMLONG Bone Density StudyBy: Dahiana On: 01-Feb-2018 Lorena Patel MD, MD, Dana M Comments: due after 03-10-18 INJECTION, PROLIA (J0897)By: On: 14-Jul-2017 Amanda Talbot MD, Lorena Talbot MD, Comments: lot: [id number]: 09/2019site/route: R arm/SQamt: prefilled syringeVIS signed when applicableBLU Waters INJECTION, PROLIA (J0897)By: On: 17-Dec-2016 Amanda Talbot MD, Lorena Talbot MD, Comments: Lot:[id number]:02/11Dose:60mlRoute:sub q Site:r armGiven By:JKMVIS signed Lorena Lewis Radiology - ChestBy: Dahiana On: 02-Jul-2016 Lorena Patel MD, MD, Dana M Comments: recheck approx. 4 weeks check before 08-03-16 follow up Radiology - Chest- PA and On: 02-Jul-2016 Intent LatBy: Lorena Talbot MD, MD, Dana M Inhaler Demo (45040)By: Dahiana On: 02-Jul-2016 Lorena Patel MD, MD, Dana M Aerosol Treatment (85997)By: On: 02-Jul-2016 Lorena Holbrook MD, MD, Dana M INJECTION, PROLIA (J0897)By: On: 12-Jun-2016 Lorena Holbrook MD, MD, Comments: lot: [id number]: 08/12site/route: R arm/SQamt: prefilled syringe 60mgVIS signed when applicableBLU Waters LE Arterial Exam - LowerBy: On: 02-Apr-2016 Intent Lorena Talbot MD, MD, Dana M Aerosol Treatment (27056)By: On: 04-Mar-2015 Pat Bright CNP RIGHT MAMMOGRAM (16004)By: On: 04-Mar-2015 Pat Bright CNP Breast Ultrasound - LeftBy: On: 01-Jan-2015 Pat Bright CNP Comments: call results to Nabil at [facility] LEFT MAMMOGRAM ([id number])By: Dewayne On: 01-Jan-2015 Pat Patel CNP Comments: call Agus Buchanan at [facility] with results Bone Density StudyBy: Dahiana On: 31-Jan-2014 Lorena Patel MD, MD, Dana M BILATERAL MAMMOGRAMS ([id number])By: On: 31-Jan-2014 Lorena Holbrook MD, MD, Dana M Kenalog Injection, 10 mgm On: 05-Dec-2013 Intent (J3301)By: Lorena Talbot MD Comments: lot: [id number]: 04/09site/route: L and R knee/joint injamt: 1cc [...] THOMAS, On: 08-Jun-2013 Intent Becky Ear Irrigation (06540)By: On: 08-Jun-2013 Intent Becky Bryan DO Comments: small amt came out of both ears but still thin film on rim Radiology - Wrist - On: 25-Nov-2012 Intent BilateralBy: Becky Bryan DO Radiology - Hand - BilateralBy: On: 25-Nov-2012 Intent Becky Bryan DO IMMUNIZATION ADMIN (11987)By: On: 04-May-2012 Intent Katerina Broderick Comments: Lot:[id number]:07-30-13Dose:prefilledRoute:IMSite:R armGiven By:ALYSSA COMPLETE ON THIS DATE IMMUNIZATION ADMIN ([id number])By: On: 09-Jun-2011 Intent Eneida Beth Comments: Lot:[id number]:01/30/13Amt:prefilledRoute:IMSite:right deltGiven By: KENNEDY Greene IMMUNIZATION ADMIN ([id number])By: On: 11-May-2011 Intent Shavon Bunch LPN Comments: Lot #[id number]/1/13Site-right deltoidgiven by: Jeffrey Bunch LPN TDAP VACCINE >7 IM (76429)By: On: 04-May-2011 Intent Lorena Talbot MD, MD, Dana M IMMUNIZATION ADMIN ([id number])By: On: 04-May-2011 Intent Lorena Talbot MD, MD, Lorena Lewis Kenalog Injection, 10 mgm On: 27-Jun-2010 Intent (J3301)By: Lorena Talbot MD, MD, Dana M Kenalog Injection, 10 mgm On: 27-Jun-2010 Intent (J3301)By: Lorena Talbot MD, MD, Dana M DXA, BONE DENSITY, AXIAL On: 14-Nov-2009 Intent SKELETON (28416)By: Dahiana HERRING, Comments: estrogen def, medication high risk Lorena Hopson MD Venous Doppler - LeftBy: On: 25-Sep-2009 Intent Lorena Talbot MD, MD, Comments: lower Lorena Lewis Kcnsbgovw-Qoi-Xkre (74439)By: On: 31-May-2009 Intent Lorena Talbot MD, MD, Comments: pain along rib Lorena Lewis Radiology - Thoracic SpineBy: On: 31-May-2009 Intent Lorena Talbot MD, MD, Dana M PHYSICAL THERAPY EVALUATION On: 03-Apr-2008 Intent (21322)By: Dewayne GARCIA, [place] Radiology - ChestBy: [employer] 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 had sinusitis month ag o. feel great [...] (left). Note for Calf pain: [place] to [place] and at [employer]. wearing fit flops. in - left knee [...] incident not at work (working out at [email or web address]) and has been occurring in an intermittent [...] Sleep disorder (780.50), Obesity,unspecified (278.00), [facility] Comprehensive Internal Medicine Office Visit On: [...] and type alot and also restart at [facility] Diagnosis: Parasthesia (782.0) Comprehensive Internal Medicine Office [...]
--- OUTSIDE RECORDS SUMMARY | 2018-05-19 10:10 | XMS RPT_ITS | Continuity of Care Document ---
:1955 Author Organization [facility] Address [facility]7 [facility] [address] [place] [address] Phone Care Team Providers Name Role Phone Dahiana HERRING, Lorena Lewis Unavailable Trevor HERRING, Darline Lewis Unavailable Betzy HERRING, Jaxon Tee Unavailable Cricket Paz Unavailable Antonio Vang Unavailable Dr. Arsh Gimenez Unavailable VINICIO Hillman Unavailable Unavailable Unavailable Unavailable [...] Active Cough (R05, 786.2) Comments: [place] in [place] here in [place]. some PND no reflux. Status: Active Deliveries (Parity) Comments: 2 Status: Active Disordered sleep (G47.9, 780.50) Comments: using calm day and working [facility]. 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 CPPD. Status: Inactive as of 11-Jul-2015 Lipoma (D17.9, 214.9) Status: Inactive as of 11-Jul-2015 Low back pain (M54.5, 724.2) Status: Inactive as of 03-Oct-2008 Malnutrition (E46, 263.9) Status: Inactive as of 11-Jul-2015 Neck pain (M54.2, 723.1) Status: Inactive as of 22-Sep-2016 Obesity, unspecified (E66.9, 278.00) Status: Inactive as of 22-Sep-2016 Osteoarthritis (M17.10, 715.96) Comments[facility] lateral left joint compartment Status: [...] knee surgery left 1999 Completed bilateral foot [id number] Completed Carpal Tunnel Completed Comments: left 2010 Dr. Chandler Carpal Tunnel right wrist Completed Comments: Dr. Chandler 06-03-10 Colonoscopy Completed Comments: 11-06-13 Dr. Gimenez repeat in 10 years Hernia 1998 Completed Hysterectomy, Total Completed Comments: Dr. Mabry Lumpectomy Completed Comments: 06/2006-lft breast Tonsillectomy Completed Comments: 1959 Date Value Details 30-Nov-2017 Emergency Department Summary Result: Comments: See Note; NOTES: [facility] Medical Records Department [address] [place] [address] Emergency Department Summary 11/30/17 0934 MR#: [id number] Acct: [id number] Name: SYLVIA RAMIREZ Rep #: [id number] : 1955 62 From: Eliezer Ojeda DO PCP: Lorena Talbot MD Status: REG ER - ER Visit Summary Date of Service: 11/30/17 Chief Complaint: [] History of Present Il lness: The patient is a 62 F [] Physical Examination: [] Test Results: [] Emergency Department Course and Treatment: [] Treatment Plan: [] Disposition: [] Impression: [] This note was generated with Cameo dictation software. It may contain incorrect words, spelling, and punctuation that were not noted in review of the chart prior to signing ED Disposition - Plan for ED Patient: Dispositio n: Home or Assisted Living Chief Complaint: Abd Pain Diagnosis: Right upper quadrant abdominal pain of unknown etiology Instructions: ED Abdominal Pain Unkn Cause Prescriptions: Hydrocodone Bitart/Apap 5-325 [[place] 5MG-325MG] 1 tab PO Q6H PRN PRN 3 Days #10 tab PRN Reason: Pain Omeprazole [Prilosec] 20 mg PO DAILY #30 cap Referrals: Lorena Talbot MD [Primary Care Provider] - What to do if you have Problems For any increased pain, shortness of breath, bleeding, nausea or vomiting, chest pain, or any unexpected problems, contact your Primary Care Provider. Call [facility] ([phone]) or report to the closest Emergency Room. Call 911 if necessary. 11/30/17 0937 <Electronically signed by Eliezer Ojeda DO> Date Eliezer sanchez DO Cosigner Signature (If Indicated): Date CC: Lorena Talbot MD 30-Nov-2017 Emergency Department Summary Result: Comments: See Note; NOTES: [facility] Medical Records Department [address] [place] [address] Emergency Department Summary 11/30/17 0417 MR#: [id number] Acct: [id number] Name: SYLVIA RAMIREZ Rep #: [id number] : 1955 62 From: Bladimir Parikh MD PCP: Lorena Talbot MD Status: REG ER ADDENDUM by Eliezer Ojeda DO on 11/30/17 at 0934 Care of the patient was turned over to me a t 7 AM. Right upper quadrant ultrasound was obtained and was normal. Patient was given a prescription for Prilosec and a short course of [place]. Patient was instructed to follow-up with her [...] given opti on of staying until the student career development specialist presents in the morning for ultrasound or [...] and vomiting This note was generated with Cameo dictation software. It may contain incorrect words, [...] your Primary Care Provider. Call [facility] ([phone]) or report to the closest Emerge ncy Room. Call 911 if necessary. 11/30/17 0702 <Electronically signed by Bladimir Parikh MD> Date Bladimir Parikh MD Cosigner Signature (If Ind icated): Date CC: Lorena Talbot MD 30-Nov-2017 Emergency Department Summary Result: Comments: See Note; NOTES: [facility] Medical Records Department [address] [place] [address] Emergency Department Summary 11/30/17 0417 MR#: [id number] Acct: [id number] Name: SYLVIA RAMIREZ Rep #: [id number] : 1955 62 From: Bladimir Parikh MD [...] or night sweats. She denies any ocular, fruit inspector y or visual symptoms. She denies trauma. [...] was given option of staying until the student career development specialist presents in the morning for ultrasound or [...] and vomiting This note was generated with MindBites s oftware. It may contain incorrect words, [...] your Primary Care Provider. Call [facility] ([phone]) or report to the closest Emergency Room. Call 911 if necessary. 11/30/17 0702 <Electronically signed by Bladimir Parikh MD&#62 ; Date Bladimir Parikh MD Cosigner Signature (If Indicated): Date CC: Lorena Talbot MD 30-Nov-2017 Gallbladder Result: Comments: See Note; NOTES: [facility] Imaging Services [address] [place], [place] [address] [address] Gallbladder MR#: [id number] Acct: [id number] Name: SYLVIA RAMIREZ Rep #: [id number] : 1 05/18/1954 F 62 From: Joseph Tony DO PCP: Lorena Talbot MD Status: REG ER Study: Gallbladder Date of Exam: 11/30/17 Exam# [id number] Ordering Dr: Bladimir Parikh MD STUDY: ABDOMINAL [...] CC: Lorena Talbot MD; Bladimir Parikh MD Hris Specialist: Signed 16-Mar-2017 SCREENING MAMM (CAD), BILAT Result: Comments: See Note; NOTES: [facility] Imaging Services [address] [place] [address] SCREENING MAMM (CAD), BILAT MR#: [id number] Acct: [id number] Name: SYLVIA RAMIREZ Rep #: [id number] : 1955 F 61 From: Tobin Sawant MD PCP: Lorena Talbot MD Status: REG CLI Study: SCREENING MAMM (CAD), BILAT Date of Exam: 03/16/17 Exam# [id number] Ordering Dr: Yomi Pérez AMMOGRAPHY - BILATERAL [...] delay biopsy of a clinically suspicious abnormality. [id number] Electronically Signed: Tobin Sawant MD at 10:39 EST Tel [phone], Service support , CC: Lorena Talbot MD; Yomi Pérez DO Hris Specialist: Signed 02-Jul-2016 Chest PA and Lateral Result: Comments: See Note; NOTES: [facility] Imaging Services [address] [place] [address] Verdana 4d Chest PA and Lateral MR#: [id number] Acct: [id number] Name: SYLVIA RAMIREZ Rep #: [id number] : 1955 F 61 From: Yecenia Khan MD PCP: Lorena Talbot MD Status: REG CLI Study: Chest PA and Lateral Date of Exam: 07/02/16 Exam# [id number] Ordering Dr: Lorena Talbot MD STUDY: X-RAY [...] MD at 15:38 EST , Service support [phone], CC: Lorena Talbot MD Hris Specialist: Signed 10-Apr-2016 Vascular Test/LEAS/UEAS Result: Comments: See Note; NOTES: [facility] Cardiovascular Services [address] [place] [address] Verdana 4d Lower Ext Art Exam w/o Exercis MR#: [id number] Acct: [id number] Name: SYLVIA GUADARRAMA Rep #: [id number] : 1955 61 From: Jim Martin MD [...] bilaterally. Jim Vidal MD T: NTS JOB: [id number] 04/10/16 1306 <Electronically signed by Jim Martin MD> Date Jim Martin MD CC: Lorena Talbot MD Date Dictated: 04/08/161722 Date Transcribed: 04/08/161722 Hris Specialist: Signed 10-Mar-2016 Bilat Scrn Digital AND CAD Result: Comments: See Note; NOTES: [facility] Imaging Services [address] [place] [address] Verdana 4d Bilat Scrn Digital AND CAD MR#: [id number] Acct: [id number] Name: SYLVIA RAMIREZ Rep #: [id number] : 1955 F 60 From: Tobin Sawant MD PCP: Lorena Talbot MD Status: REG CLI Study: Bilat Scrn Digital AND CAD Date of Exam: 03/10/16 Exam# [id number] Ordering Dr: oJse Pérez ul DO MAMMOGRAPHY - BILATERAL SCREENING [...] these results will be sent to the [facility] by the facility within 30 days. Approximately 10% of breast cancers are not detected by mammography. A normal mammogram should not delay biopsy of a clinically suspicious abnormality. [id number] Elect ronically Signed: Tobin Sawant MD at 11:03 EST Tel [phone], Service support [phone], CC: Lorena Talbot MD; Yomi Pérez DO Hris Specialist: Signed 10-Mar-2016 Dexa Bone Density Study (HP) Result: Comments: See Note; NOTES: [facility] Imaging Services [address] [place] [address] Verdana 4d Dexa Bone Density Study (HP) MR#: [id number] Acct: [id number] Name: MARCELA RAMIREZ Rep #: [id number] : 1955 F 60 From: Tobin Sawant MD PCP: Lorena Talbot MD Status: REG CLI Study: Dexa Bone Density Study (HP) Date of Exam: 03/10/16 Exam# [id number] Ordering Dr: KODY NESBITT STUDY: DUAL ENERGY [...] Tobin Sawant MD at 10:18 EST Tel [phone], Service support [phone], CC: Lorena Talbot MD; KODY NESBITT Hris Specialist: Signed 07-Jul-2015 History and Physical Exam Result: Comments: See Note; NOTES: [facility] Medical Records Department [address] [place] [address] History and Physical 07/07/15 1809 MR#: [id number] Acct: [id number] Name: SYLVIA RAMIREZ Rep #: [id number] : 1955 60 From: Lucy Figueroa MD [...] mentioned above presented to the emergency room [facility] of left upper extremity soreness, [...] [Vitamin 2,000 unit PO DAILY 07/07/15 D] [place]-3 Fatty Acids/Fish Oil 2 each PO DAILY 07/07/15 [[place] 3 1,000 mg Softgel] Turmeric [Turmeric Root] [...] 92.3 H Lymph % (Auto) 4.1 L [place] % (Auto) 2.2 Eos % (Auto) 1.0 [...] on prednisone and azathioprine. Plan: Admit to [facility] floor, IV fluids for hydration, blood cultur [...] Subcu Lovenox. This note was generated with Cameo dictation software. It may contain incorrect words, spelling, and punct uation that were not noted in checking the note before signing. 07/07/15 2996 <Electronically signed by Lucy Figueroa MD> Date Lucy Figueroa MD Cosigner Signature (if applicable): Date CC: Lorena Talbot MD; Lucy Figueroa Signed 18-Apr-2015 Operative Report Result: Comments: See Note; NOTES: [facility] Medical Records Department [address] [place] [address] Operative Report MR#: [id number] Acct: [id number] Name: KIRSTEN RAMIREZ Rep #: [id number] : 1955 60 From: Galileo Quinones DPM PCP: Lorena Talbot MD Status: [facility] DATE OF SERVICE: DATE OF SURGERY: April [...] The patient received MAC [facility] and then a total of 10 [...] needed. Galileo Quinones DPM T: NTS JOB: [id number] 04/18/15 0757 <Electronic ally signed by Galileo Quinones DPM> Date Galileo Quinones DPM Cosigner Signature (If Indicated): Date CC: Lorena Talbot MD; Galileo Quinones DPM Date Dictated: 04/12/151647 Date Transcribed: 04/12/151647 Hris Specialist: Signed 12-Apr-2015 Discharge Instruction Result: Comments: See Note; NOTES: [facility] Medical Records Department [address] [place] [address] Instructions for Home/Discharge Instructions 04/12/15 1639 MR#: [id number] Acct: [id number] Name: SYLVIA RAMIREZ Rep #: [id number] : 1955 60 From: Galileo Quinones DPM [...] and Lateral Result: Comments: See Note; NOTES: [facility] Imaging Services [address] [place] [address] Verdana 4d Chest PA and Lateral MR#: [id number] Acct: [id number] Name: SYLVIA RAMIREZ Rep #: [id number] : 1955 F 60 From: Jose Fagan MD PCP: Lorena Talbot MD Status: PRE SDC Study: Chest PA and Lateral Date of Exam: 04/04/15 Exam# [id number] Ordering Dr: Viregn Quinones DPM STUDY: X-RAY CHEST REASON FOR [...] FACR at 13:58 EST , Service support [phone], RAD/Chest PA and Lateral IMPRESSION: No signs of acute cardiopulmonary disease Electronically Signed: Jose Fagan MD, FACR at 13:58 EST , Service support [phone], CC: Lorena Talbot MD; Galileo Quinones DPM Hris Specialist: Signed 29-Mar-2015 EKG (85246) Comments: nsr no acute chg poor R wave progression Result: [MEASUREMENTS ANALYSIS] Date of Test: 03/29/2015 13:38:32; Heart Rate: 73; MI Interval: 180; QRS: 88; QT Interval: 380; Corrected QT Interval (QTc): 402; P Wave [place]: 33; QRS Wave [place]: 30; T Wave [place]: 29; Blood Pressure: 120/78 [ECG DIAGNOSTIC STATEMENTS] Date of Test: 03/29/2015 13:38:32; Summary: Sinus Rhythm WITHIN NORMAL LIMITS -Mar-2015 Inital Evaluation - PT Result: Comments: See Note; NOTES: [facility] Physical [facility] [address] [place], [place] [address] Fax REHABILITATION SE NEHEMIAS INITIAL EVALUATION MR#: [id number] Acct: [id number] Name: SYLVIA RAMIREZ Rep #: [id number] : 1955 60 From: Gurdeep Carson Referring Dr.: Galileo Quinones DPM Status: REG RCR Ins urance: [facility] Date: Patient's Visit Information SYLVIA RAMIREZ [...] to be FAXED BACK to us at [phone] for Medicare purposes. Please let me know if there are questions or concerns regarding this plan of care. Physician Signature: Date: <Electronically signed by Gurdeep Carson > 03/28/15 1140 CC: Lorena Talbot MD; Galileo Quinones DPM [facility] Jeanne d For Medicare only, by signing this I certify the plan of care. Physicians Signature Date 08-Mar-2015 Unilat Rt Scrn Digital AND CAD Result: Comments: See Note; NOTES: [facility] Imaging Services [address] [place] [address] Verdana 4d Unilat Rt Scrn Digital AND CAD MR#: [id number] Acct: [id number] Na me: ALICIA RAMIREZETTE Rep #: [id number] : 1955 F 59 From: Tobin [place] MD PCP: Lorena Talbot MD Status: [facility] CL Study: Unilat Rt Scrn Digital AND CAD Date of Exam: 03/08/15 Exam# [id number] Ordering Dr: Pat Buchanan MAMMOGRAPHY - UNILATERAL [...] delay biopsy of a clinically suspicious abnormality. [id number] Electronically Signed: Tobin [place]ant MD 201 09/03/12 at 11:11 EST Tel [phone], Service support [phone], CC: Pat Buchanan; Lorena Talbot MD Hris Specialist: Signed 04-Mar-2015 Lower Ext/No Jt/w/o Result: Comments: See Note; NOTES: [facility] Imaging Services [address] [place] [address] Verdalila 4d Lower Ext/No Jt/w/o MR#: [id number] Acct: [id number] Name: Cirilo RAMIREZ Rep #: [id number] : 1955 F 59 From: Jose Fagan MD PCP: Lorena Talbot MD Status: REG CLI Study: Lower Ext/No Jt/w/o Date of Exam: 03/04/15 Exam# [id number] Ordering Dr: Ward Quinones DPM STUDY: MRI [...] at 10:47 EST Tel , Service support [phone], CC: Lorena Talbot MD; Galileo Quinones DPM Hris Specialist: Signed 15-Jan-2015 Breast Limited Unilateral Result: Comments: See Note; NOTES: [facility] Imaging Services [address] [place] [address] Ultrasound Report MR#: [id number] Acct: [id number] Name: SYLVIA RAMIREZ Rep #: [id number] : 1955 F 59 From: Tobin Sawant MD PCP: Lorena Talbot MD Status: REG CLI Study: Breast Limited Unilateral Date of Exam: 01/15/15 Exam# [id number] Ordering Dr: Pat Buchanan STUDY : ULTRASOUND [...] Tobin Sawant MD at 13:27 EDT Tel [phone], Service support [phone], CC: Pat Buchanan ; Lorena Talbot MD Hris Specialist: Signed 01-Jan-2015 Breast Limited Unilateral Result: Comments: See Note; NOTES: [facility] Imaging Services [address] [place] [address] Ultrasound Report MR#: [id number] Acct: [id number] Name: SYLVIA RAMIREZ Rep #: [id number] : 1955 F 59 From: Frantz Rojas MD PCP: Lorena Talbot MD Status: REG CLI Study: Breast Limited Unilateral Date of Exam: 01/01/15 Exam# [id number] Ordering Dr: Pat Buchanan STUDY: ULT RASOUND [...] at 15:39 EDT Tel , Service support [phone], CC: Pat Buchanan; Lorena Talbot MD Hris Specialist: Signed 01-Jan-2015 Unilat Lt Diag Digital AND CAD Result: Comments: See Note; NOTES: [facility] Imaging Services [address] [place] [address] Breast Imaging Report MR#: [id number] Acct: [id number] Name: SYLVIA RAMIREZ Rep #: [id number] : 1955 F 59 From: Frantz Rojas MD PCP: Lorena Talbot MD Status: REG CLI Study: Unilat Lt Diag Digital AND CAD Date of Exam: 01/01/15 Exam# [id number] Ordering Dr: Pat Buchanan AMMOGRAPHY - UNILATERAL [...] t 15:34 EDT Tel , Service support [phone], CC: Pat Buchanan; Lorena Talbot MD Hris Specialist: Signed 21-Feb-2014 Bilat Scrn Digital & CAD Result: Comments: See Note; NOTES: [facility] Imaging Services [address] [place] [address] Breast Imaging Report MR#: [id number] Acct: [id number] Name: SYLVIA RAMIREZ Rep #: [id number] : 1955 F 58 From: Tobin Sawant MD PCP: Lorena Talbot MD Status: REG CLI Exam# [id number] Ordering Dr: Lorena Talbot MD MAMMOGRAPHY - [...] MD 201 08/03/28 at 9:41 EDT Tel [phone], Service support [phone], CC: Lorena Talbot MD Hris Specialist: Signed 21-Feb-2014 Dexa Bone Density Study (HP) Result: Comments: See Note; NOTES: [facility] Imaging Services [address] [place] [address] Bone Density Report MR#: [id number] Acct: [id number] Name: SYLVIA RAMIREZ Rep #: [id number] : 1955 F 58 From: Tobin Sawant MD PCP: Lorena Talbot MD Status: [facility] CLI Study: Dexa Bone Density Study (HP) Date of Exam: 02/21/14 Exam# [id number] Ordering Dr: Lorena Talbot MD STUDY: DUAL [...] National [employer]opor[employer] Foundation [email or web address] Electronically Jeanne d: Toibn [place] MD at 12:35 EDT Tel [phone], Service support [phone], CC: Lorena Talbot MD Hris Specialist: Signed 08-Feb-2014 PT Discharge Summary Result: Comments: See Note; NOTES: [facility] Physical Therapy [facility] [facility] [place] [address] Fax REHABILITATION SERVICES DISCHARGE SUMMARY MR#: [id number] Acct: [id number] Name: SYLVIA RAMIREZ Rep #: [id number] : 1955 58 From: Karrie Chris Referring [...] it is appropriate she be discharged from [facility] and continue independent home exercise progra m. The patient was encouraged to call if she does have any questions or concerns. Karrie Chris DPT T: NTS JOB: [id number] <Electronically signed by Karrie Chris > 02/08/14 0705 CC: Signed 02-Jan-2014 Inital Evaluation - PT Result: Comments: See Note; NOTES: [facility] Physical Therapy [facility] [address] [facility] [facility] [address] [place] [address] Fax REHABILITATION SERVICES INITIAL EVALUATION MR#: [id number] Acct: [id number] Name: SYLVIA RAMIREZ Rep #: [id number] : 1955 58 From: Karrie Chris Referring DrMontrell: Haile Aguilera DO Status: REG R Insurance: [facility] Eval Date: DATE OF SERVICE: 01/01/2014 [...] On Wednesday she is leaving for the [place] and will be gone for approximately 2 [...] pain. Karrie Chris DPT T: KRISHAN JOB: [id number] <Electronically signed by Karrie Chris > 01/02/14 [...] Living Situation Comments: single lives alone, annie olvera elise [phone] dtr Status: Active No Drug Use Status: Active Non Smoker/No Tobacco Use Status: Active Number of Adult (age 18 or over) Dependents Comments: 2 Status: Active Tobacco use: Former smoker. Status: Active Smoking Status Name Dates Details Former smoker Vital Signs Date Test Result Details 84-Nwl-323424:39 Pulse 70 /min Comments: Pattern: Regular Respiration [...] 0.00 cm Results Date Description Value Details 39-Snl-864923:35 Methymalonic Acid, Serum Comments: PATIENT NOT FASTINGPERFORMED BY: [employer] [id number] BY: [facility]ria NetworksHackettstown Medical CenterLmkdpe[address] [place] [address] [id number] (88299) Disclaimer: SPRCS (Normal) Comments: This test was developed and its performance characteristicsdetermined by rumr: turn off the lights. It has not been cleared or approvedby the Food and Drug Administration. Methylmalonic Acid, Serum 82 nmol/L (Normal) Range: 0-378 48-Epa-828932:35 Vitamin B-12 Comments: PATIENT NOT FASTINGPERFORMED BY: [employer] [id number] BY: [employer] NetworksPriscilla [place] [address] [facility] [id number] (cyanocobalamin) (78085) Vitamin B12 852 pg/mL (Normal) Range: 232-1245 11-Cgp-420746:35 HELICOBACTER PYLORI Comments: PATIENT NOT FASTINGPERFORMED BY: [employer] [id number] BY: [facility] [facility] [id number] ANTIBODY (68989) H. pylori, IgG Abs 0.17 {Index_Value} (Normal) Range: 0.00-0.79 Comments: Negative <0.80 Equivocal 0.80 - 0.89 Positive >0.89 83-Lbe-651516:35 Creatine Kinase Total Comments: PATIENT NOT FASTINGPERFORMED BY: [employer] [id number] BY: [place] [address] [facility] [id number] (77682) Creatine Kinase,Total 425 U/L (Abnormal) Range: 24-173 89-Hie-421491:35 C-Reactive Protein Comments: PATIENT NOT FASTINGPERFORMED BY: [employer] [id number] BY: [address] [id number] ([address]) C-Reactive Protein, Quant 6.0 mg/L (Abnormal) Range: 0.0-4.9 30-Nov-20172:50 Basic Metabolic Profile (BMP) Comments: [facility] [id number] [place], [address] GAP 10 (Normal) Range: 5-15 CO2 26.0 [...] A.D.A. criteria.Please note revised GLUCOSE reference range dmjkkwelw88/02/2018. :50 CBC W/Diff, Automated Comments: [facility] [address] [place], [place], [id number] SMEAR COMMENT SCANNED (Normal) Absolute Lymph 0.21 [...] K/mm3 (Abnormal) Range: 4.4-11.0 :50 Lipase Comments: [facility] [address] [place], [address] LIPASE 171 U/L (Normal) Range: 73-393 30-Nov-20172:50 Liver Profile Comments: [address] [place], [id number] D BILI 0.27 mg/dL (Normal) Range: 0.00-0.30 T BILI 1.10 mg/dL (Abnormal) Range: 0.20-1.00 ALT 36 U/L (Normal) Range: 13-56 ALK P 46 U/L (Normal) Range: 45-117 AST 32 U/L (Normal) Range: 15-37 GLOB 3.9 g/dL (Normal) Range: 2.2-4.2 ALB 3.6 g/dL (Normal) Range: 3.2-5.0 T PROT 7.5 g/dL (Normal) Range: 6.4-8.2 66-Cce-478817:27 CBC-Complete Blood Cnt No Diff Comments: [address] [place], [place], [id number] MPV 10.2 fL (Normal) Range: 6.2-12.0 PLT [...] 4.2-5.4 WBC 4.0 K/mm3 (Abnormal) Range: 4.4-11.0 61-Ukm-811012:27 CPK Total, Creatine Kinase Comments: [address] [place], [place], [id number] CPK TOTAL 577 U/L (Abnormal) Range: 26-192 33-Okt-765160:27 Liver Profile Comments: [facility] [id number] [place], [place], [id number] D BILI 0.16 mg/dL (Normal) Range: 0.00-0.30 T BILI 0.90 mg/dL (Normal) Range: 0.20-1.00 ALT 36 U/L (Normal) Range: 13-56 ALK P 43 U/L (Abnormal) Range: 45-117 AST 33 U/L (Normal) Range: 15-37 GLOB 3.7 g/dL (Normal) Range: 2.2-4.2 ALB 3.8 g/dL (Normal) Range: 3.2-5.0 T PROT 7.5 g/dL (Normal) Range: 6.4-8.2 38-Pmn-083456:27 Serum Creatinine AND GFR Comments: [facility] [address] [place], [place], [id number] EST GFR - AA 163 mL/min (Normal) Comments: GFR Calc EST GFR 135 mL/min (Normal) Comments: Non- GFR Calc CREAT,SERUM 0.49 mg/dL (Abnormal) Range: 0.55-1.02 Comments: The validity of the calculated GFR AND GFRAA in patients over70 years has not been determined. Clinical correlation isessential. 92-Jdi-535519:23 CBC W/Diff, Automated Comments: [facility] [address] [place], [place], [id number] BASO STIP RARE (Normal) PLT EST ADEQUATE [...] 4.2-5.4 WBC 4.2 K/mm3 (Abnormal) Range: 4.4-11.0 77-Yzu-15031:34 CBC-Complete Blood Cnt No Diff Comments: [facility] A[address]mt[address] [facility] [place], [place], [address] MPV 10.1 fL (Normal) Range: 6.2-12.0 PLT [...] 4.4-11.0 :34 CPK Total, Creatine Kinase Comments: [facility] [address] [facility] [address] [place], [place], [address] CPK TOTAL 909 U/L (Abnormal) Range: 26-192 :34 Liver Profile Comments: [facility] [address] [place], [address] D BILI 0.16 mg/dL (Normal) Range: 0.00-0.30 T BILI 0.70 mg/dL (Normal) Range: 0.20-1.00 ALT 49 U/L (Normal) Range: 13-56 ALK P 52 U/L (Normal) Range: 45-117 AST 44 U/L (Abnormal) Range: 15-37 GLOB 3.8 g/dL (Normal) Range: 2.2-4.2 ALB 3.5 g/dL (Normal) Range: 3.2-5.0 T PROT 7.3 g/dL (Normal) Range: 6.4-8.2 :34 Serum Creatinine AND GFR Comments: [facility] Boy[address]we[address] [place], [address] EST GFR - AA 192 mL/min (Normal) [...] B CORE,TOT Negative (Normal) Comments: Performed at: [address], [place], [place] [id number] Director: Arsh Cuellar PhD, Phone: [phone] 62-Kxi-16296:23 Hepatitis C Antibodies Comments: Is Patient Fasting? [facility] (refer to report for specific site)refer to report for address and phone number HEP C AB 0.1 {s/co_ratio} (Normal) Range: 0.0-0.9 Comments: Negative: < 0.8 Indeterminate: 0.8 - 0.9 Positive: > 0.9 The CDC recommends that a positive HCV antibody result be followed up with a HCV Nucleic Acid Amplification test (221091). :23 Immunoglobulins G/A/M Comments: Is Patient Fasting? [facility] (refer to report for specific site)refer to report for address and phone number IMMUNOGL M 202 mg/dL (Normal) Range: 26-217 IMMUNO A 165 mg/dL (Normal) Range: 87-352 IMMUNO G 1092 mg/dL (Normal) Range: 700-1600 09-Eoy-864337:18 CBC-Complete Blood Cnt No Diff Comments: [facility] [address] [place], [place], [address] MPV 11.1 fL (Normal) Range: 6.2-12.0 PLT [...] 4.2-5.4 WBC 4.9 K/mm3 (Normal) Range: 4.4-11.0 11-Bsv-226342:18 Liver Profile Comments: [facility] [address] [place], [place], [address] D BILI 0.13 mg/dL (Normal) Range: 0.00-0.30 T BILI 0.60 mg/dL (Normal) Range: 0.20-1.00 ALT 56 U/L (Normal) Range: 13-56 Comments: Please note revised ALT reference range vxsexgumw50/28/2018. ALK P 49 U/L (Normal) Range: 45-117 AST 57 U/L (Abnormal) Range: 15-37 GLOB 3.6 g/dL (Normal) Range: 2.2-4.2 ALB 3.6 g/dL (Normal) Range: 3.2-5.0 T PROT 7.2 g/dL (Normal) Range: 6.4-8.2 06-Avr-410029:18 Serum Creatinine AND GFR Comments: [facility] [address]wx[address]kkw3[address] [facility] [address] [place], [place], [address] EST GFR - AA 164 mL/min (Normal) Comments: GFR Calc EST GFR 135 mL/min (Normal) Comments: Non- GFR Calc CREAT,SERUM 0.49 mg/dL (Abnormal) Range: 0.55-1.02 Comments: The validity of the calculated GFR AND GFRAA in patients over70 years has not been determined. Clinical correlation isessential. 88-Wel-75031:40 CBC-Complete Blood Cnt No Diff Comments: [facility] [address] [place], [place], [phone] MPV 11.0 fL (Normal) Range: 6.2-12.0 PLT [...] 4.4-11.0 :40 CPK Total, Creatine Kinase Comments: [facility] [address] [place], [address] CPK TOTAL 1418 U/L (Abnormal) Range: 26-192 :40 Liver Profile Comments: [facility] [address] [place], [address] D BILI 0.12 mg/dL (Normal) Range: 0.00-0.30 T BILI 0.60 mg/dL (Normal) Range: 0.20-1.00 ALT 59 U/L (Abnormal) Range: 13-56 Comments: Please note revised ALT reference range fvgcxxoxu95/28/2018. ALK P 48 U/L (Normal) Range: 45-117 AST 60 U/L (Abnormal) Range: 15-37 GLOB 3.6 g/dL (Normal) Range: 2.2-4.2 ALB 3.4 g/dL (Normal) Range: 3.2-5.0 T PROT 7.0 g/dL (Normal) Range: 6.4-8.2 :40 Serum Creatinine AND GFR Comments: [facility] [address] [place], [address] EST GFR - AA 201 mL/min (Normal) Comments: GFR Calc EST GFR 166 mL/min (Normal) Comments: Non- GFR Calc CREAT,SERUM 0.41 mg/dL (Abnormal) Range: 0.55-1.02 Comments: The validity of the calculated GFR AND GFRAA in patients over70 years has not been determined. Clinical correlation isessential. 49-Ipr-556039:31 CBC-Complete Blood Cnt No Diff Comments: [facility] L[address] [place], [address] MPV 10.5 fL (Normal) Range: 6.2-12.0 PLT [...] 4.2-5.4 WBC 5.0 K/mm3 (Normal) Range: 4.4-11.0 84-Yvn-017895:31 CPK Total, Creatine Kinase Comments: [facility] [address] [place], [place], [address] CPK TOTAL 924 U/L (Abnormal) Range: 26-192 06-Chg-113203:31 Liver Profile Comments: [facility] [address] [place], [address] D BILI 0.12 mg/dL (Normal) [...] T PROT 7.6 g/dL (Normal) Range: 6.4-8.2 31-Fqf-926021:31 Serum Creatinine AND GFR Comments: [facility] Evwh[address]frdj[address] [place], [address] EST GFR - AA 142 mL/min (Normal) Comments: GFR Calc EST GFR 117 mL/min (Normal) Comments: Non- GFR Calc CREAT,SERUM 0.56 mg/dL (Normal) Range: 0.55-1.02 Comments: The validity of the calculated GFR AND GFRAA in patients over70 years has not been determined. Clinical correlation isessential. :18 CBC-Complete Blood Cnt No Diff Comments: [facility] [address] [place], [address](287) MPV 10.6 fL (Normal) Range: 6.2-12.0 PLT [...] 4.4-11.0 :18 CPK Total, Creatine Kinase Comments: [facility] [address] [place], [address] CPK TOTAL 1718 U/L (Abnormal) Range: 26-192 :18 Liver Profile Comments: [facility] [address] [place], [place], [address] D BILI 0.14 mg/dL (Normal) Range: 0.00-0.30 T BILI 0.60 mg/dL (Normal) Range: 0.20-1.00 ALT 58 U/L (Normal) Range: 12-78 ALK P 48 U/L (Normal) Range: 45-117 AST 60 U/L (Abnormal) Range: 15-37 GLOB 3.7 g/dL (Normal) Range: 2.2-4.2 ALB 3.5 g/dL (Normal) Range: 3.4-5.0 Comments: Please note revised Albumin AND Globulin reference rangeeffective 2017. T PROT 7.2 g/dL (Normal) Range: 6.4-8.2 62-Ocx-48994:18 Serum Creatinine AND GFR Comments: [facility] [address] [place], [place], [address] EST GFR - AA 175 mL/min (Normal) Comments: GFR Calc EST GFR 145 mL/min (Normal) Comments: Non- GFR Calc CREAT,SERUM 0.46 mg/dL (Abnormal) Range: 0.55-1.02 Comments: The validity of the calculated GFR AND GFRAA in patients over70 years has not been determined. Clinical correlation isessential. 82-Oim-064798:43 Basic Metabolic Profile (BMP) Comments: [facility] [address] [place], [address] GAP 9 (Normal) Range: 5-15 [...] 7-18 GLU 97 mg/dL (Normal) Range: 70-110 92-Jmf-301460:43 CBC W/Diff, Automated Comments: [facility] [address] [place], [address] OVALOCYTE RARE (Normal) MACROCYTE 1+ [...] 4.2-5.4 WBC 5.5 K/mm3 (Normal) Range: 4.4-11.0 12-Pwz-635317:43 CPK Total, Creatine Kinase Comments: [facility] [address] [place] [address], [phone] CPK TOTAL 1846 U/L (Abnormal) Range: 26-192 62-Gnk-423959:43 Liver Profile Comments: [facility] G[address]qt[address]so[address]un4942 [facility]. [place], [place], [address] D BILI 0.17 mg/dL (Normal) Range: 0.00-0.30 T BILI 0.70 mg/dL (Normal) Range: 0.20-1.00 ALT 60 U/L (Normal) Range: 12-78 ALK P 55 U/L (Normal) Range: 45-117 AST 69 U/L (Abnormal) Range: 15-37 GLOB 3.4 g/dL (Normal) Range: 2.3-3.5 ALB 3.7 g/dL (Normal) Range: 3.4-5.0 T PROT 7.1 g/dL (Normal) Range: 6.4-8.2 01-Azs-249060:26 Basic Metabolic Profile (BMP) Comments: [facility] [address] [place], [place], [address] GAP 6 (Normal) Range: 5-15 CO2 27.0 [...] 7-18 GLU 96 mg/dL (Normal) Range: 70-110 86-Vcd-722655:26 CBC W/Diff, Automated Comments: [facility] [address] [place], [place], [address] Absolute Lymph 0.33 {X10_3/ul} (Abnormal) Range: 0.83-4.51 [...] 4.2-5.4 WBC 5.2 K/mm3 (Normal) Range: 4.4-11.0 45-Jzu-226441:26 CPK Total, Creatine Kinase Comments: [facility] [address] [place] [address], [address] CPK TOTAL 1661 U/L (Abnormal) Range: 26-192 83-Rlr-359788:26 Liver Profile Comments: [address], [address] D BILI 0.12 mg/dL (Normal) Range: 0.00-0.30 T BILI 0.60 mg/dL (Normal) Range: 0.20-1.00 ALT 54 U/L (Normal) Range: 12-78 ALK P 50 U/L (Normal) Range: 45-117 AST 58 U/L (Abnormal) Range: 15-37 GLOB 3.9 g/dL (Abnormal) Range: 2.3-3.5 ALB 3.6 g/dL (Normal) Range: 3.4-5.0 T PROT 7.5 g/dL (Normal) Range: 6.4-8.2 3-Jhe-709201:44 CBC W/Diff, Automated Comments: ADD TO 0503:T196QTA TO 0503:V193Jmzyx[address], [address] SMEAR COMMENT COMMENT (Normal) Comments: SLIDE [...] 4.2-5.4 WBC 5.4 K/mm3 (Normal) Range: 4.4-11.0 9-Myy-981855:42 CPK Total, Creatine Comments: ADD CPK/BMP/QWXLWNW7-4-[facility] [address]rucfy4[address] [place], [address] Kinase CPK TOTAL 1438 U/L (Abnormal) Range: 26-192 5-Qeg-490792:42 CRP Comments: ADD CPK/BMP/JIHJCUM3-8-[facility]xkKn[facility] S[address]jnwkw9733 [address] [place], [place], [address] C-REACTIVE PROT 4.67 mg/L (Abnormal) Range: 0.0-3.0 Comments: C-Reactive Protein (CRP) provides useful information for thediagnosis, therapy and monitoring of inflammatory processesand associated diseases. For the evaluation of Relative Riskfor Cardiovascular Dise ase, a High Sensitivity CRP (HSCRP)should be ordered. 5-Qsd-357859:42 Erythrocyte Sed Rate Comments: [facility] [address] [place], [address] SED RATE 39 mm/h (Abnormal) Range: 0-30 0-Yze-312588:42 Hepatitis ABC Profile Comments: [facility] (refer to report for specific site)refer to report for address and phone number COMMENT Comment (Normal) Comments: Non reactive HCV antibody screen is consistent with no HCVinfection, unless recent infection is suspected or otherevidence exists to indicate HCV infection.Performed at: [facility] [address] [id number] Director: Arsh Cuellar PhD, Phone: [phone] HCV Ab <0.1 {s/co_ratio} (Normal) Range: 0.0-0.9 Hep B Michael AB Reactive (Normal) Comments: Non Reactive: Inconsistent with immunity, less than 10 mIU/mL Reactive: Consistent with immunity, greater than 9.9 mIU/mL HEP B CORE,TOT Negative (Normal) HB CORE [id number] Negative (Normal) HB SURF AG Negative (Normal) HEP A AB,T.6726 Positive (Abnormal) HEP A IgM 6734 Negative (Normal) 23-Vzm-809537:35 Basic Metabolic Profile (BMP) Comments: [facility] [address] [place], [address] GAP 7 (Normal) Range: 5-15 [...] 7-18 GLU 105 mg/dL (Normal) Range: 70-110 17-Qic-874027:35 CBC W/Diff, Automated Comments: [facility] [address]rsf[address] [place], [place], [address] Absolute Lymph 0.28 {X10_3/ul} (Abnormal) Range: 0.83-4.51 [...] 4.2-5.4 WBC 5.3 K/mm3 (Normal) Range: 4.4-11.0 96-Ape-035781:35 CPK Total, Creatine Kinase Comments: [facility] [address] [place], [place], [address] CPK TOTAL 2479 U/L (Abnormal) Range: 26-192 26-Uik-330044:35 Liver Profile Comments: [facility] [address]la[address] [place], [place], [address] D BILI 0.17 mg/dL (Normal) Range: 0.00-0.30 T BILI 0.90 mg/dL (Normal) Range: 0.20-1.00 ALT 105 U/L (Abnormal) Range: 12-78 ALK P 52 U/L (Normal) Range: 45-117 AST 102 U/L (Abnormal) Range: 15-37 GLOB 3.6 g/dL (Abnormal) Range: 2.3-3.5 ALB 3.5 g/dL (Normal) Range: 3.4-5.0 T PROT 7.1 g/dL (Normal) Range: 6.4-8.2 8-Sji-763366:33 Basic Metabolic Profile (BMP) Comments: [facility] [address] [place], [place], [address] GAP 9 (Normal) Range: 5-15 CO2 27.0 [...] 7-18 GLU 94 mg/dL (Normal) Range: 70-110 2-Fei-025238:33 CBC W/Diff, Automated Comments: [facility] [address] [place], [address] ANISO 2+ (Normal) Absolute Lymph [...] 4.2-5.4 WBC 4.8 K/mm3 (Normal) Range: 4.4-11.0 0-Van-135591:33 CPK Total, Creatine Kinase Comments: [facility] T[address]iyogl[address] [place], [address] CPK TOTAL 2987 U/L (Abnormal) Range: 26-192 5-Mso-302300:33 Liver Profile Comments: [facility] [address] [place], [place], [address] D BILI 0.09 mg/dL (Normal) Range: 0.00-0.30 T BILI 0.60 mg/dL (Normal) Range: 0.20-1.00 ALT 120 U/L (Abnormal) Range: 12-78 ALK P 62 U/L (Normal) Range: 45-117 AST 115 U/L (Abnormal) Range: 15-37 GLOB 3.6 g/dL (Abnormal) Range: 2.3-3.5 ALB 3.5 g/dL (Normal) Range: 3.4-5.0 T PROT 7.1 g/dL (Normal) Range: 6.4-8.2 94-Czk-690212:54 Basic Metabolic Profile (BMP) Comments: [facility] [address] [place], [place], [address] GAP 11 (Normal) Range: 5-15 CO2 25.0 [...] 7-18 GLU 102 mg/dL (Normal) Range: 70-110 62-Yae-737803:54 CBC W/Diff, Automated Comments: [facility] [address]wz[address] [place], [place], [address] POIK RARE (Normal) PLT EST ADEQUATE (Normal) [...] 4.2-5.4 WBC 5.1 K/mm3 (Normal) Range: 4.4-11.0 04-Ory-941815:54 CPK Total, Creatine Kinase Comments: [facility] [address] [place] [address], [address] CPK TOTAL 1840 U/L (Abnormal) Range: 26-192 29-Wgo-360353:54 Liver Profile Comments: [facility] [address] [place], [place], [address] D BILI 0.13 mg/dL (Normal) Range: 0.00-0.30 T BILI 0.50 mg/dL (Normal) Range: 0.20-1.00 ALT 70 U/L (Normal) Range: 12-78 ALK P 56 U/L (Normal) Range: 45-117 AST 76 U/L (Abnormal) Range: 15-37 GLOB 3.7 g/dL (Abnormal) Range: 2.3-3.5 ALB 3.5 g/dL (Normal) Range: 3.4-5.0 T PROT 7.2 g/dL (Normal) Range: 6.4-8.2 :55 TEMPORAL ARTERY BX See Note (Normal) Comments: [facility] [address] [place], [place], [address] Comments: Patient: SYLVIA RAMIREZ : 1955 (60/F) Acct Num: [id number] Phys: Lyndon Saavedra MD Unit Num: [id number] Loc: [facility] Specimen: [id number] Received: 01/20/161813 Spec Type : TEMPORAL TISSUES TISSUES: COMMENT Elastic stain with matched control is used in the evaluation of the specimen. GROSS DESCRIPTION Received is one container labeled with the pat ient's name and designated left temporal artery. The specimen consists of a single elongated fragment of wiley tissue measuring 0.5 x <0.1 x <0.1 cm. The specimen is totally submitted in [facility] ette for post fixation serial sectioning. / AM:rickie 01/21/16 TC:5 CPT:40469, 02507 HEADER OPERATION: Left temporal artery biopsy PRE-OP [...] W/Diff, Automated Comments: Order Date: 01/10/16Order Date: 01/10/16[facility] [address] [place], [place], [address] SMEAR COMMENT SCANNED (Normal) Absolute Lymph 0.26 [...] :05 CRP Comments: Order Date: 01/10/16Order Date: 01/10/16[facility] [address] [place], [address] C-REACTIVE PROT 192.00 mg/L (Abnormal) Range: 0.0-3.0 Comments: C-Reactive Protein (CRP) provides useful information for thediagnosis, therapy and monitoring of inflammatory processesand associated diseases. For the evaluation of Relative Riskfor Cardiovascular Dise ase, a High Sensitivity CRP (HSCRP)should be ordered. 74-Nwx-42780:05 Erythrocyte Sed Rate Comments: Order Date: 01/10/16Order Date: 01/10/16[facility] [address] [place], [address] SED RATE 79 mm/h (Abnormal) Range: 0-30 :46 Basic Metabolic Profile (BMP) Comments: [facility] [address] [place], [address] GAP 3 (Abnormal) Range: 5-15 CO2 27.0 [...] A.D.A. criteria. :46 CBC W/Diff, Automated Comments: [facility] [address] [place] [place], [address] ANISO 1+ (Normal) PLT EST ADEQUATE (Normal) [...] (Abnormal) WBC 5.1 K/mm3 (Normal) Range: 4.4-11.0 05-Lav-984115: NEUROMA - See Note (Normal) Comments: [facility] [address] [place], [address] 00 [facility]S/TRAUMATIC Comments: Patient: SYLVIA RAMRIEZ : 1955 (60/F) Acct Num: [id number] Phys: Stacie [facility] Unit Num: [id number] Loc: [facility] Specimen: [id number] Received: 04/15/15 - 0755 Spec Type: N EUROMA TISSUES TISSUES: GROSS DESCRIPTION Received is one container labeled with the patient name and designated right third intermetatarsal space neuroma. The specimen consists of multiple pieces of wiley-yellow soft tissue measuring in aggregate 2.5 x 2 x 0.3 cm. The specimenis totally submitted in one cassette. 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 MICROSCOPIC DIAGNOSIS Soft tissue of right hand, third intermetatarsal space, excision: Consistent with neuroma. AM: 04/16/15 Signed Joel [facility] 04/16/15 <signature on file> 94-Evq-106521: BREAST BIOPSY (CHOOSE See Note (Normal) Comments: [facility] [address] [place], [address] 10 SITE) Comments: Patient: SYLVIA RAMIREZ : 1955 (59/F) Acct Num: [id number] Phys: Jaxon Álvarez MD Unit Num: [id number] Loc: [facility] Specimen: [id number] Received: 02/06/151614 Spec Type: BREAST BX TISSUES [...] one cassette. / AM: 02/07/15 TC:5 CPT: 12972 HEADER OPERATION: U/S guided core biopsy left [...] CHOL 213 mg/dL (Abnormal) Comments: <200 mg/dL Vbfsvccix533-048 mg/dL Borderline>240 mg/dL High Risk 41-Hhy-821671:03 PARATHORMONE (62609) Comments: PATIENT NOT FASTINGPERFORMED BY: [email or web address]6370 [employer] [place] [id number] Information: [id number],2ND ORDER NO DRAW F EE PTH, Intact 23 pg/mL (Normal) Range: 15-65 10-Lqe-468073:02 TSH (THYROID STIMULATING Comments: PATIENT NOT FASTINGPERFORMED BY: [facility] [employer] [facility] [address] [place] [id number] HORMONE) (63391) TSH 0.733 {uIU/mL} (Normal) Range: 0.450-4.500 :02 CALCIFEDIOL (82545) Comments: PATIENT NOT FASTINGPERFORMED BY: [facility] Anhylf[address] Torres RoadDublin [place] [id number] Vitamin D, 25-Hydroxy 28.9 ng/mL (Abnormal) Range: 30.0-100.0 Comments: Vitamin D deficiency has been defined by the Coulters ofMedicine and an Endocrine Society practice guideline as alevel of serum 25-OH vitamin D less than 20 ng/mL (1,2).The Endocrine Society went on to further define vitamin Dinsufficiency as a level between 21 and 29 ng/mL (2).1. IOM (Coulters of Medicine). 2010. Dietary reference intakes for calcium and D. [place]: The National Academies Press.2. Fernie FERGUSON, Saida OCONNOR, Esdras JIMENEZ, et al. Evaluation, treatment, and prevention of vitamin D deficiency: an Endocrine Society clinical practice guideline. JCEM. 2010; 96(7):1911-30. 91-Haq-209147:02 METABOLIC PANEL, Comments: PATIENT NOT FASTINGPERFORMED BY: [facility] Bjwgkt0326 [facility] [id number] Information: [id number] COMPREHENSIVE (78115) ALT (SGPT) 77 [iU]/L (Abnormal) Range: 0-32 [...] Glucose, Serum 110 mg/dL (Abnormal) Range: 65-99 86-Jqw-153310:28 CBCD Comments: NO CHARGE REDRAW ANC 7.5 [...] 4.2-5.4 WBC 8.6 K/mm3 (Normal) Range: 4.4-11.0 17-Ehm-414586:29 SED Comments: NO CHARGE REDRAW tSEDRATE 20 mm/h (Normal) Range: 0-30 79-Vjl-029062:42 Urinalysis, Office (22933) UA - LEUKOCYTE ESTERASE Negative (Normal) UA - NITRITE Negative (Normal) URINE UROBILINGN MARIE TIMED Normal mg/dL (Normal) UA - PROTEIN Negative mg/dL (Normal) UA - PH 7 (Normal) UA - BLOOD Negative (Normal) UA - SPECIFIC GRAVITY 1.020 (Normal) UA - KETONES Small mg/dL (Normal) UA - BILIRUBIN Negative (Normal) UA - GLUCOSE Negative (Normal) 1-Vdm-479827:38 Systemic Lupus Profile Comments: PATIENT NOT FASTINGPERFORMED BY: [facility] CenterNzhkpn7340 [facility] [id number] Information: [id number] (21507) Anti-DNA (DS) Ab Qn 3 {IU/mL} (Normal) Range: 0-9 Comments: Negative <5 Equivocal 5 - 9 Positive >9 Sjogren's Anti-SS-B 0.2 {AI} (Normal) Range: 0.0-0.9 Sjogren's Anti-SS-A <0.2 {AI} (Normal) Range: 0.0-0.9 Antichromatin Antibodies <0.2 {AI} (Normal) Range: 0.0-0.9 RA Latex Turbid. 8.4 {IU/mL} (Normal) Range: 0.0-13.9 Iraheta Antibodies <0.2 {AI} (Normal) Range: 0.0-0.9 ENAMEL APPLIER Antibodies <0.2 {AI} (Normal) Range: 0.0-0.9 9-Rxt-356731:05 HAND MIN 3 VIEWS Radiology Report See [...] Signed:Tobin Sawant M.D.November 25 at 2:42:01 PM [id number] Signed GP/GP If you are the referring physician and would like to consult with theradiologist who provided this interpretation, please contact Amber calixto M.D. at [phone]. If this radiologist is unavailable, youwill be directed to another radiologist to assist. If you are a patient with a question regarding this report, pleasecontactyour referr ing physician directly. Professional Interpretation Provided By: [employer], Phone , These documents contain legally protected [...] 11/25/12 1442 by Loly HERRING ,Ruranscribed on 11/25/124 by ITS IMPORTSign by Tobin Sawant MD on 11/25/121453 Sign by: Tobin Sawant MD 4-Tpq-203833:04 HAND MIN 3 VIEWS Radiology Report See [...] swelling. Signed:Tobin Sawant M.D.November at 2:42:30 PM [id number] Signed GP/GP If you are the referring physician and would like to consult with theradiologist who provided this interpretation, please contact Tobin Sawant M.D. at [phone]. If this radiologist is unavailable, youwill be directed to another radiologist to assist. If you are a patient with a question regarding this report, pleasecontactyour r rulaing physician directly. Professional Interpretation Provided By: [employer], Phone , These documents contain legally protected [...] 11/25/12 1454 Sign by: Tobin Sawant MD 6-Izv-132999:04 WRIST MIN 3 VIEWS Radiology See Note [...] Sawant M.D.November 25, 2012 at 2:43:33 PM [id number] Signed GP/GP If you are the referring physician and would like to co nsult with theradiologist who provided this interpretation, please contact Jaz Falk at [phone]. If this radiologist is unavailable, youwill be directed to another radiologist [facility]. If you are a patient with a question regarding this report, pleasecontactyour referring physician directly. Professional Interpretation Provided By: [employer], Phone ,Fax These documents contain legally protected [...] 11/25/12 1456 Sign by: Tobin Sawant MD [id number] WRIST MIN 3 VIEWS Radiology See Note [...] Sawant M.D.November 25, 2012 at 2:42:31 PM [id number] Signed GP/GP If you are the referring physician and would like to con sult with theradiologist who provided this interpretation, please contact Jaz Falk at [phone]. If this radiologist is unavailable, youwill be directed to another radiologist to ed slaughter. If you are a patient with a question regarding this report, pleasecontactyour referring physician directly. Professional Interpretation Provided By: [employer], Phone , These documents contain legally protected [...] 11/25/12 1457 Sign by: Tobin Sawant MD 1-Bcl-208621:50 CCP ANTIBODY ([id number]) Comments: PATIENT NOT FASTINGPERFORMED BY: [employer] Edamir4931 [facility] [id number] BY: rumr: turn off the lights [address] [id number] CCP Antibodies IgG/IgA 21 {units} (Abnormal) Range: 0-19 Comments: Negative <20 Weak positive 20 - 39 Moderate positive 40 - 59 Strong positive >59 1-Hkl-714579:50 SED RATE ERYTHROCYTE Comments: PATIENT NOT FASTINGPERFORMED BY: [employer] [facility]6370 [facility] [place] [id number] BY: [address] [id number] (57068) Sedimentation Rate-Westergren 2 mm/h (Normal) Range: 0-40 5-Aar-794805:50 C-REACTIVE PROTEIN (08669) Comments: PATIENT NOT FASTINGPERFORMED BY: [facility] Snpcbf2620 Torres [facility] [id number] BY: [address] [id number] C-Reactive Protein, Quant 1.6 mg/L (Normal) Range: 0.0-4.9 1-Dvk-689875:50 TSH (58976) Comments: PATIENT NOT FASTINGPERFORMED BY: [facility]Saint [facility] Akkruc0076 [facility] [id number] BY: [address] [id number] TSH 1.410 {uIU/mL} (Normal) Range: 0.450-4.500 0-Dbw-514344:50 RHEUMATOID FACTOR-QUANT Comments: PATIENT NOT FASTINGPERFORMED BY: [facility]6370 [facility] [id number] BY: [address] [id number] ([id number]) RA Latex Turbid. 5.4 {IU/mL} (Normal) Range: 0.0-13.9 5-Aiu-304656:50 PATRICK (ANTINUCLEAR ANTIBODY) Comments: PATIENT NOT FASTINGPERFORMED BY: [facility] Yxsckm1714 [facility] [id number] BY: [address] [id number] ([id number]) PATRICK Direct Positive (Abnormal) 3-Kkf-173232:50 CBC WITH MANUAL DIFF Comments: PATIENT NOT FASTINGPERFORMED BY: [facility] Tfupqd5834 [facility] [id number] BY: BN [facility] [id number] Inf ormation: [id number] (54879) Immature Grans (Abs) 0.0 {x10E3/uL} (Normal) Range: [...] 3.77-5.28 WBC 4.7 {x10E3/uL} (Normal) Range: 4.0-10.5 0-Xve-811817:50 METABOLIC PANEL, Comments: PATIENT NOT FASTINGPERFORMED BY: [facility]CoHackettstown Medical CenterPnptom9268 [facility] [id number] BY: Lab[address] [id number] COMPREHENSIVE (94505) ALT (SGPT) 22 [iU]/L (Normal) Range: 0-32 [...] PANEL, COMPREHENSIVE Comments: PATIENT WAS FASTINGPERFORMED BY: [employer] Xggpwp6080 [facility] [id number] (64771) ALT (SGPT) 20 [iU]/L (Normal) Range: 0-40 [...] MANUAL DIFF Comments: PATIENT WAS FASTINGPERFORMED BY: [employer] Enmxdm3455 [facility] [id number] Information: [id number] (05682) Baso (Absolute) 0.0 {x10E3/uL} (Normal) Range: 0.0-0.2 [...] {x10E3/uL} (Abnormal) Range: 4.0-10.5 :18 LIPID PANEL (37244) Comments: PATIENT WAS FASTINGPERFORMED BY: LabCoHackettstown Medical CenterLacuxo0449 [facility] [id number] LDL Cholesterol Calc 128 mg/dL (Abnormal) Range: [...] Report See Note (Normal) Comments: Exam Number: [id number] UNILATERAL LEFT RIBS Several views of the [...] Report See Note (Normal) Comments: Exam Number: [id number] DORSAL SPINE AP and lateral views were [...] unspecified laterality Planned Observations METABOLIC PANEL, COMPREHENSIVE (74361)Indication: Hyperlipidemia, mild On: :49 Request LIPOPROTEIN, BLD, BY NMR (14084)Indication: Hyperlipidemia, mild On: :49 Request HEPATIC FUNCTION PANEL (44441)Indication: Hyperlipidemia, mild On: :28 Request LIPOPROTEIN, BLD, BY NMR (38025)Indication: Hyperlipidemia, mild On: :28 Request CBC, Platelets & Auto Diff (45726)Indication: Headache, occipital On: :26 Request Comments: all labs stat C-Reactive Protein (91303)Indication: Headache, occipital On: : Request Sed Rate Erythrocyte (29126)Indication: Headache, occipital On: : Request Sed Rate Erythrocyte (87495)Indication: Headache, occipital On: :09 Request LIPID PANEL (16717)Indication: Osteoarthrosis, not specified whether generalized/localized, lower leg On: 2-Kui-086411:11 Request Parathyroid Hormone-related Peptide (PTH-rP) (82656)Indication: Abnormal blood chemistry On: 42-Rel-661133:02 Request METABOLIC PANEL, COMPREHENSIVE (15976)Indication: Swelling On: 05-Fap-209520:15 Request Comments: Add to standing order to be done today CPK TOTAL & ISOENZYMES (65015)Indication: Elevated CPK On: 68-Kpt-184644:14 Request Comments: repeat today add to standing labs C-Reactive Protein (07484)Indication: Elevated CPK On: 14-Xmk-984822:14 Request Comments: include with standing labs today TSH (12276)Indication: Swelling On: 20-Ote-084120:12 Request Comments: Add to current standing order for today only Print this for pt MICROALBUMIN URINE QUANT (34079)Indication: Swelling On: 97-Joe-349994:43 Request MICROALBUMIN: CREATININE RATIO (81852) AND (09837)Indication: Swelling On: 43-Dqp-472192:43 Request EXTRCTBL NUCLR ANTGEN EA (59276) test code 200954Jrbjudczzp: Abnormal blood chemistry On: Request ANTI-Sm (ANTI IRAHETA ANTIBODY) (15529) test code 448933Ordxncfdot: Abnormal blood chemistry On: Request ANTI-ENAMEL APPLIER (ANTI RIBONUCLEAR PROTEIN ANTIBODY) (39440) test code 275043Tuxbdcgvhf: Abnormal blood chemistry On: Request DNA ANTIBODY-NATV/DBL ST (32186) test code 669594Vpsuhsjmrg: Abnormal blood chemistry On: Request URINALYSIS (58227)Indication: Malignant neoplasm of breast (female) On: :27 Request CBC (Auto) (91527)Indication: Malignant neoplasm of breast (female) On: :22 Request Metabolic Panel, Comprehensive (57963)Indication: Malignant neoplasm of breast (female) On: :22 Request Planned Procedures Bone Density StudyBy: Dahiana HERRING, On: 01-Feb-2018 Intent Lorena Hopson MD Comments: due after 03-10-18 INJECTION, PROLIA (J0897)By: On: 14-Jul-2017 Intent Lorena Talbot MD, MD, Dana Comments: lot: [id number]: 09/2019site/route: R arm/SQamt: prefilled syringeVIS signed when applicableBLU Waters INJECTION, PROLIA (J0897)By: On: 17-Dec-2016 Intent Lorena Talbot MD, MD, Dana Comments: Lot:[id number]:02/11Dose:60mlRoute:sub q Site:r armGiven By:CHARLETTE signed M Radiology - ChestBy: Dahiana HERRING, On: 02-Jul-2016 Intent Lorena Hopson MD Comments: recheck approx. 4 weeks check before 08-03-16 follow up Radiology - Chest- PA and LatBy: On: 02-Jul-2016 Intent Lorena Talbot MD, MD, Dana M Inhaler Demo (39588)By: Dahiana HERRING, On: 02-Jul-2016 Intent Lorena Hopson MD Aerosol Treatment (90448)By: On: 02-Jul-2016 Intent Lorena Talbot MD, MD, Dana M INJECTION, PROLIA (J0897)By: On: 12-Jun-2016 Intent Lorena Talbot MD, MD, Dana Comments: lot: [id number]: 08/12site/route: R arm/SQamt: prefilled syringe 60mgVIS signed when applicableBLU Waters LE Arterial Exam - LowerBy: Dahiana On: 02-Apr-2016 Intent Lorena HERRING MD, Dana M Aerosol Treatment (41153)By: Dewayne On: 04-Mar-2015 Intent Pat GARCIA RIGHT MAMMOGRAM (39227)By: Dewayne On: 04-Mar-2015 Pat Patel CNP Breast Ultrasound - LeftBy: Dewayne On: 01-Jan-2015 Pat Patel CNP Comments: call results to Nabil at [facility] LEFT MAMMOGRAM ([id number])By: Dewayne On: 01-Jan-2015 Pat Patel CNP Comments: call Agus Buchanan at [facility] with results Bone Density StudyBy: Dahiana HERRING, On: 31-Jan-2014 Intent Lorena Hopson MD BILATERAL MAMMOGRAMS (09801)By: On: 31-Jan-2014 Intent Lorena Talbot MD, MD, Dana M Kenalog Injection, 10 mgm On: 05-Dec-2013 Intent (J3301)By: Lorena Talbot MD Comments: lot: [id number]: 04/09site/route: L and R knee/joint injamt: 1cc in each kneeVIS signed when applicablex8 Lorena Talbot MD Echo CompleteBy: Pat Buchanan CNP On: 11-Aug-2013 Intent Eprescribed prescriptions On: 11-Aug-2013 Intent (G8553)By: Dewayne GARCIA Pat Dowling Eprescribed prescriptions On: 18-Jul-2013 Intent (G8553)By: Lorena Talbot MD, MD, Dana M Eprescribed prescriptions On: 08-Jun-2013 Intent (G8553)By: Becky Bryan DO Wax CurettesBy: Becky Bryan DO On: 08-Jun-2013 Intent Ear Irrigation (71589)By: Randi On: 08-Jun-2013 Intent Becky THOMAS Comments: small amt came out of both ears but still thin film on rim Radiology - Wrist - BilateralBy: On: 25-Nov-2012 Intent Becky Bryan DO Radiology - Hand - BilateralBy: On: 25-Nov-2012 Intent Becky Bryan DO IMMUNIZATION ADMIN (37984)By: On: 04-May-2012 Intent Katerina Broderick Comments: Lot:[id number]:07-30-13Dose:prefilledRoute:IMSite:R armGiven By:ALSYSA COMPLETE ON THIS DATE IMMUNIZATION ADMIN (51491)By: On: 09-Jun-2011 Intent Eneiad Beth Comments: Lot:[id number]:01/30/13Amt:prefilledRoute:IMSite:right deltGiven By: KENNEDY Greene IMMUNIZATION ADMIN (68078)By: On: 11-May-2011 Intent Shavon Bunch LPN Comments: Lot #[id number]-75/1/13Site-right deltoidgiven by: Jeffrey Bunch LPN TDAP VACCINE >7 IM (85513)By: On: 04-May-2011 Intent Lorena Talbot MD, MD, Dana M IMMUNIZATION ADMIN (38507)By: On: 04-May-2011 Intent Lorena Talbot MD, MD, Dana M Kenalog Injection, 10 mgm On: 27-Jun-2010 Intent (J3301)By: Lorena Talbot MD, MD, Dana M Kenalog Injection, 10 mgm On: 27-Jun-2010 Intent (J3301)By: Lorena Talbot MD, MD, Dana M DXA, BONE DENSITY, AXIAL SKELETON On: 14-Nov-2009 Intent (92082)By: Lorena Talbot MD Comments: estrogen def, medication high risk Lorena Talbot MD Venous Doppler - LeftBy: Dahiana On: 25-Sep-2009 Intent Lorena HERRING MD, Dana M Comments: lower Oetbdiqco-Cby-Bzad (81006)By: On: 31-May-2009 Intent Lorena Talbot MD, MD, Dana Comments: pain along rib M Radiology - Thoracic SpineBy: On: 31-May-2009 Intent Lorena Talbot MD, MD, Dana M PHYSICAL THERAPY EVALUATION On: 03-Apr-2008 Intent (19284)By: Dewayne GARCIA, Asuncion Radiology - ChestBy: Dewayne WIRE CUTTER, On: 03-Apr-2008 Intent Asuncion Kenalog Injection, 10 [...] Lorena Talbot MD, MD, Lorena Lewis INJECTION, TRIAMCINOLONE ACETONIDE, NOT OTHERWISE SPECIFIED, 10 MG Ordered: 27-Jun-2010 Pending Lorena Talbot MD, MD, Dana M INJECTION, TRIAMCINOLONE ACETONIDE, NOT OTHERWISE SPECIFIED, 10 MG Ordered: 27-Jun-2010 Lorena Smith MD, MD, Dana M INJECTION, TRIAMCINOLONE ACETONIDE, [...] Indication: Cerumen impaction Encounters Phone Encounter On: 01-Feb-2018 11:20 Encounter Diagnosis: [...] for Follow up acute care visit: In [place] and noted left arm red streak from [...] for Earache: will be leaving wednesday for [facility]. had sinusitis month ag o. feel [...] (left). Note for Calf pain: drove to [place] and at [employer]. wearing fit flops. in 4-10 left knee [...] incident not at work (working out at [employer]) and has been occurring in an intermittent [...] Osteoarthritis (715.96), Sleep disorder (780.50), Obesity,unspecified (278.00), [facility] Comprehensive Internal Medicine Office Visit On: [...] alot and also restart at [facility] Diagnosis: Parasthesia (782.0) Comprehensive Internal Medicine Office [...]
--- OUTSIDE RECORDS SUMMARY | 2018-05-19 10:11 | XMS RPT_ITS | Continuity of Care Document ---
:1955 Author Organization [facility] Address [facility] [address] [place] [address] Phone Care Team Providers Name Role Phone [...] 786.2) Comments: not in [place] here in [place]. some PND no reflux. Status: Active Deliveries (Parity) Comments: 2 Status: Active Disordered sleep (G47.9, 780.50) Comments: using calm day and working stay away from [facility]. 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 Status: Active Interstitial lung disease (J84.9, 515) Comments: fall 2014 lung fcn was normal - counter roller dr Liang at [facility] 11-16 PFTs normal stable Status: Active [...] PPD (R76.11, 795.51) Comments: see ID at [facility] in past Status: Active Pregnancies () [...] 30 {Tablet} Refills: 0 Ordered:11-Jul-2015 Dahiana HERRING, Lroena Cheney MD, Lorena Lewis Start : 11-Jul-2015 [...] with patient xrays look up from the [facility]. CPPD. Status: Inactive as of 11-Jul-2015 Lipoma (D17.9, 214.9) Status: Inactive as of 11-Jul-2015 Low back pain (M54.5, 724.2) Status: Inactive as of 03-Oct-2008 Malnutrition (E46, 263.9) Status: Inactive as of 11-Jul-2015 Neck pain (M54.2, 723.1) Status: Inactive as of 22-Sep-2016 Obesity, unspecified (E66.9, 278.00) Status: Inactive as of 22-Sep-2016 Osteoarthritis (M17.10, 715.96) Comments[facility] lateral left joint compartment Status: [...] knee surgery left 1999 Completed bilateral foot [id number] Completed Carpal Tunnel Completed Comments: left 2010 Dr. Chandler Carpal Tunnel right wrist Completed Comments: Dr. Chandler 06-03-10 Colonoscopy Completed Comments: 11-06-13 Dr. Gimenez repeat in 10 years Hernia 1998 Completed Hysterectomy, Total Completed Comments: Dr. Mabry Lumpectomy Completed Comments: 06/2006-lft breast Tonsillectomy Completed Comments: 1959 Date Value Details 30-Nov-2017 Emergency Department Summary Result: Comments: See Note; NOTES: [facility] Medical Records Department [address] [place] [address] Emergency Department Summary 11/30/17 0934 MR#: [id number] Acct: [id number] Name: SYLVIA RAMIREZ Rep #: [id number] : 1955 62 From: Eliezer Ojeda DO PCP: Lorena Talbot MD Status: REG ER - ER Visit Summary Date of Service: 11/30/17 Chief Complaint: [] History of Present Il lness: The patient is a 62 F [] Physical Examination: [] Test Results: [] Emergency Department Course and Treatment: [] Treatment Plan: [] Disposition: [] Impression: [] This note was generated with [employer] dictation software. It may contain incorrect words, spelling, and punctuation that were not noted in review of the chart prior to signing ED Disposition - Plan for ED Patient: Dispositio n: Home or Assisted Living Chief Complaint: Abd Pain Diagnosis: Right upper quadrant abdominal pain of unknown etiology Instructions: ED Abdominal Pain Unkn Cause Prescriptions: Hydrocodone Bitart/Apap 5-325 [[place] 5MG-325MG] 1 tab PO Q6H PRN PRN 3 Days #10 tab PRN Reason: Pain Omeprazole [Prilosec] 20 mg PO DAILY #30 cap Referrals: Lorena Talbot MD [Primary Care Provider] - What to do if you have Problems For any increased pain, shortness of breath, bleeding, nausea or vomiting, chest pain, or any unexpected problems, contact your Primary Care Provider. Call [facility] ([phone]) or report to the closest Emergency Room. Call 911 if necessary. 11/30/17 0937 <Electronically signed by Eliezer Ojeda DO> Date Eliezer sanchez DO Cosigner Signature (If Indicated): Date CC: Lorena Talbot MD 30-Nov-2017 Emergency Department Summary Result: Comments: See Note; NOTES: [facility] Medical Records Department [address] [place] [address] Emergency Department Summary 11/30/17 0417 MR#: [id number] Acct: [id number] Name: SYLVIA RAMIREZ Rep #: [id number] : 1955 62 From: Bladimir Parikh MD PCP: Lorena Talbot MD Status: REG ER ADDENDUM by Eliezer Ojeda DO on 11/30/17 at 0934 Care of the patient was turned over to me a t 7 AM. Right upper quadrant ultrasound was obtained and was normal. Patient was given a prescription for Prilosec and a short course of [place]. Patient was instructed to follow-up with her [...] given opti on of staying until the merchandise handler presents in the morning for ultrasound or [...] and vomiting This note was generated with [employer] dictation software. It may contain incorrect words, [...] your Primary Care Provider. Call [facility] ([phone]) or report to the closest Emerge ncy Room. Call 911 if necessary. 11/30/17 0702 <Electronically signed by Bladimir Parikh MD> Date Bladimir Parikh MD Cosigner Signature (If Ind icated): Date CC: Lorena Talbot MD 30-Nov-2017 Emergency Department Summary Result: Comments: See Note; NOTES: [facility] Medical Records Department [address] [place] [address] Emergency Department Summary 11/30/17 0417 MR#: [id number] Acct: [id number] Name: SYLVIA RAMIREZ Rep #: [id number] : 1955 62 From: Bladimir Parikh MD [...] or night sweats. She denies any ocular, insurance auditor y or visual symptoms. She denies [...] was given option of staying until the merchandise handler presents in the morning for ultrasound or [...] and vomiting This note was generated with [employer] s oftware. It may contain incorrect words, [...] your Primary Care Provider. Call [facility] ([phone]) or report to the closest Emergency Room. Call 911 if necessary. 11/30/17 0702 <Electronically signed by Bladimir Parikh MD&#62 ; Date Bladimir Parikh MD Cosigner Signature (If Indicated): Date CC: Lorena Talbot MD 30-Nov-2017 Gallbladder Result: Comments: See Note; NOTES: [facility] Imaging Services [address] [place], [place] [address] [address] Gallbladder MR#: [id number] Acct: [id number] Name: SYLVIA RAMIREZ Rep #: [id number] : 1 05/18/1954 F 62 From: Joseph Tony DO PCP: Lorena Talbot MD Status: REG ER Study: Gallbladder Date of Exam: 11/30/17 Exam# [id number] Ordering Dr: Bladimir Parikh MD STUDY: ABDOMINAL [...] CC: Lorena Talbot MD; Bladimir Parikh MD Correctional Supervisor: Signed 16-Mar-2017 SCREENING MAMM (CAD), BILAT Result: Comments: See Note; NOTES: [facility] Imaging Services [address] [place] [address] SCREENING MAMM (CAD), BILAT MR#: [id number] Acct: [id number] Name: SYLVIA RAMIREZ Rep #: [id number] : 1955 F 61 From: Tobin Sawant MD PCP: Lorena Talbot MD Status: REG CLI Study: SCREENING MAMM (CAD), BILAT Date of Exam: 03/16/17 Exam# [id number] Ordering Dr: Yomi Pérez AMMOGRAPHY - BILATERAL [...] delay biopsy of a clinically suspicious abnormality. [id number] Electronically Signed: Tobin Sawant MD at 10:39 EST Tel [phone], Service support , CC: Lorena Talbot MD; Yomi Pérez DO Correctional Supervisor: Signed 02-Jul-2016 Chest PA and Lateral Result: Comments: See Note; NOTES: [facility] Imaging Services [address] [place] [address] Verdana 4d Chest PA and Lateral MR#: [id number] Acct: [id number] Name: SYLVIA RAMIREZ Rep #: [id number] : 1955 F 61 From: Yecenia Khan MD PCP: Lorena Talbot MD Status: REG CLI Study: Chest PA and Lateral Date of Exam: 07/02/16 Exam# [id number] Ordering Dr: Lorena Talbot MD STUDY: X-RAY [...] MD at 15:38 EST , Service support [phone], CC: Lorena Talbot MD Correctional Supervisor: Signed 10-Apr-2016 Vascular Test/LEAS/UEAS Result: Comments: See Note; NOTES: [facility] Cardiovascular Services [address] [place] [address] Verdana 4d Lower Ext Art Exam w/o Exercis MR#: [id number] Acct: [id number] Name: SYLVIA GUADARRAMA Rep #: [id number] : 1955 61 From: Jim Martin MD [...] bilaterally. Jim Vidal MD T: NTS JOB: [id number] 04/10/16 1306 <Electronically signed by Jim Martin MD> Date Jim Martin MD CC: Lorena Talbot MD Date Dictated: 04/08/161722 Date Transcribed: 04/08/161722 Correctional Supervisor: Signed 10-Mar-2016 Bilat Scrn Digital AND CAD Result: Comments: See Note; NOTES: [facility] Imaging Services [address] [place] [address] Verdana 4d Bilat Scrn Digital AND CAD MR#: [id number] Acct: [id number] Name: SYLVIA RAMIREZ Rep #: [id number] : 1955 F 60 From: Tobin Sawant MD PCP: Lorena Talbot MD Status: REG CLI Study: Bilat Scrn Digital AND CAD Date of Exam: 03/10/16 Exam# [id number] Ordering Dr: Jose Pérez ul DO MAMMOGRAPHY [...] these results will be sent to the [facility] by the facility within 30 days. Approximately 10% of breast cancers are not detected by mammography. A normal mammogram should not delay biopsy of a clinically suspicious abnormality. [id number] Elect ronically Signed: Tobin Sawant MD at 11:03 EST Tel [phone], Service support [phone], CC: Lorena Talbot MD; Yomi Pérez DO Correctional Supervisor: Signed 10-Mar-2016 Dexa Bone Density Study (HP) Result: Comments: See Note; NOTES: [facility] Imaging Services [address] [place] [address] Verdana 4d Dexa Bone Density Study (HP) MR#: [id number] Acct: [id number] Name: MARCELA RAMIREZ Rep #: [id number] : 1955 F 60 From: Tobin Sawant MD PCP: Lorena Talbot MD Status: REG CLI Study: Dexa Bone Density Study (HP) Date of Exam: 03/10/16 Exam# [id number] Ordering Dr: KODY NESBITT STUDY: DUAL ENERGY [...] Tobin Sawant MD at 10:18 EST Tel [phone], Service support [phone], CC: Lorena Talbot MD; KODY NESBITT Correctional Supervisor: Signed 07-Jul-2015 History and Physical Exam Result: Comments: See Note; NOTES: [facility] Medical Records Department [address] [place] [address] History and Physical 07/07/15 1809 MR#: [id number] Acct: [id number] Name: SYLVIA RAMIREZ Rep #: [id number] : 1955 60 From: Lucy Figueroa MD [...] [Vitamin 2,000 unit PO DAILY 07/07/15 D] Potomac-3 Fatty Acids/Fish Oil 2 each PO DAILY 07/07/15 [[place]ac 3 1,000 mg Softgel] Turmeric [Turmeric Root] [...] 92.3 H Lymph % (Auto) 4.1 L Webster % (Auto) 2.2 Eos % (Auto) 1.0 [...] Subcu Lovenox. This note was generated with [employer] dictation software. It may contain incorrect words, spelling, and punct uation that were not noted in checking the note before signing. 07/07/15 2200 <Electronically signed by Lucy Figueroa MD> Date Lucy Figueroa MD Cosigner Signature (if applicable): Date CC: Lorena Talbot MD; Lucy Figueroa Signed 18-Apr-2015 Operative Report Result: Comments: See Note; NOTES: [facility] Medical Records Department [address] [place] [address] Operative Report MR#: [id number] Acct: [id number] Name: KIRSTEN RAMIREZ Rep #: [id number] : 1955 60 From: Galileo Quinones DPM PCP: Lorena Talbot MD Status: [facility] DATE OF SERVICE: DATE OF SURGERY: April [...] The patient received MAC anesthesia per the [facility] thesiologist and then a total [...] needed. Galileo Quinones DPM T: NTS JOB: [id number] 04/18/15 0757 <Electronic ally signed by Galileo Quinones DPM> Date Galileo Quinones DPM Cosigner Signature (If Indicated): Date CC: Lorena Talbot MD; Galileo Quinones DPM Date Dictated: 04/12/151647 Date Transcribed: 04/12/151647 Correctional Supervisor: Signed 12-Apr-2015 Discharge Instruction Result: Comments: See Note; NOTES: [facility] Medical Records Department [address] [place] [address] Instructions for Home/Discharge Instructions 04/12/15 1639 MR#: [id number] Acct: [id number] Name: SYLVIA RAMIREZ Rep #: [id number] : 1955 60 From: Galileo Quinones DPM [...] and Lateral Result: Comments: See Note; NOTES: [facility] Imaging Services [address] [place] [address] Verdana 4d Chest PA and Lateral MR#: [id number] Acct: [id number] Name: SYLVIA RAMIREZ Rep #: [id number] : 1955 F 60 From: Jose Fagan MD PCP: Lorena Talbot MD Status: PRE SDC Study: Chest PA and Lateral Date of Exam: 04/04/15 Exam# [id number] Ordering Dr: Virgen Quinones DPM STUDY: X-RAY [...] FACR at 13:58 EST , Service support [phone], RAD/Chest PA and Lateral IMPRESSION: No signs of acute cardiopulmonary disease Electronically Signed: Jose Fagan MD, FACR at 13:58 EST , Service support [phone], CC: Lorena Talbot MD; Galileo Quinones DPM Correctional Supervisor: Signed 29-Mar-2015 EKG (09595) Comments: nsr no acute chg poor R wave progression Result: [MEASUREMENTS ANALYSIS] Date of Test: 03/29/2015 13:38:32; Heart Rate: 73; CA Interval: 180; QRS: 88; QT Interval: 380; Corrected QT Interval (QTc): 402; P Wave [place]: 33; QRS Wave [place]: 30; T Wave [place]: 29; Blood Pressure: 120/78 [ECG DIAGNOSTIC STATEMENTS] Date of Test: 03/29/2015 13:38:32; Summary: Sinus Rhythm WITHIN NORMAL LIMITS -Mar-2015 Inital Evaluation - PT Result: Comments: See Note; NOTES: [facility] Physical Therapy [facility] [address] [place], [place] [address] Fax REHABILITATION SE NEHEMIAS INITIAL EVALUATION MR#: [id number] Acct: [id number] Name: SYLVIA RAMIREZ Rep #: [id number] : 1955 60 From: Gurdeep Carson Referring Dr.: Galileo Quinones DPM Status: REG RCR Ins urance: [facility] Date: Patient's Visit Information SYLVIA RAMIREZ is [...] to be FAXED BACK to us at [phone] for Medicare purposes. Please let me know if there are questions or concerns regarding this plan of care. Physician Signature: Date: <Electronically signed by Gurdeep Carson > 03/28/15 1140 CC: Lorena Talbot MD; Galileo Quinones DPM [facility] Jeanne d For Medicare only, by signing this I certify the plan of care. Physicians Signature Date 08-Mar-2015 Unilat Rt Scrn Digital AND CAD Result: Comments: See Note; NOTES: [facility] Imaging Services [address] [place] [address] Verdana 4d Unilat Rt Scrn Digital AND CAD MR#: [id number] Acct: [id number] Na me: ALICIA RAMIREZETTE Rep #: [id number] : 1955 F 59 From: Tobin Sawant MD PCP: Lorena Talbot MD Status: [facility] CL Study: Unilat Rt Scrn Digital AND CAD Date of Exam: 03/08/15 Exam# [id number] Ordering Dr: Pat Buchanan MAMMOGRAPHY - UNILATERAL [...] delay biopsy of a clinically suspicious abnormality. [id number] Electronically Signed: Tobin Sawant MD 201 09/03/12 at 11:11 EST Tel [phone], Service support [phone], CC: Pat Buchanan; Lorena Talbot MD Correctional Supervisor: Signed 04-Mar-2015 Lower Ext/No Jt/w/o Result: Comments: See Note; NOTES: [facility] Imaging Services [address] [place] [address] Verdalila 4d Lower Ext/No Jt/w/o MR#: [id number] Acct: [id number] Name: Cirilo RAMIREZ Rep #: [id number] : 1955 F 59 From: Jose Fagan MD PCP: Lorena Talbot MD Status: REG CLI Study: Lower Ext/No Jt/w/o Date of Exam: 03/04/15 Exam# [id number] Ordering Dr: Ward Quinones DPM STUDY: MRI [...] at 10:47 EST Tel , Service support [phone], CC: Lorena Talbot MD; Galileo Quinones DPM Correctional Supervisor: Signed 15-Jan-2015 Breast Limited Unilateral Result: Comments: See Note; NOTES: [facility] Imaging Services [address] [place] [address] Ultrasound Report MR#: [id number] Acct: [id number] Name: SYLVIA RAMIREZ Rep #: [id number] : 1955 F 59 From: Tobin Sawant MD PCP: Lorena Talbot MD Status: REG CLI Study: Breast Limited Unilateral Date of Exam: 01/15/15 Exam# [id number] Ordering Dr: Pat Buchanan STUDY : ULTRASOUND [...] Tobin Sawant MD at 13:27 EDT Tel [phone], Service support [phone], CC: Pat Buchanan ; Lorena Talbot MD Correctional Supervisor: Signed 01-Jan-2015 Breast Limited Unilateral Result: Comments: See Note; NOTES: [facility] Imaging Services [address] [place] [address] Ultrasound Report MR#: [id number] Acct: [id number] Name: SYLVIA RAMIREZ Rep #: [id number] : 1955 F 59 From: Frantz Rojas MD PCP: Lorena Talbot MD Status: REG CLI Study: Breast Limited Unilateral Date of Exam: 01/01/15 Exam# [id number] Ordering Dr: Pat Buchanan STUDY: ULT RASOUND [...] at 15:39 EDT Tel , Service support [phone], CC: Pat Buchanan; Lorena Talbot MD Correctional Supervisor: Signed 01-Jan-2015 Unilat Lt Diag Digital AND CAD Result: Comments: See Note; NOTES: [facility] Imaging Services [address] [place] [address] Breast Imaging Report MR#: [id number] Acct: [id number] Name: SYLVIA RAMIREZ Rep #: [id number] : 1955 F 59 From: Frantz Rojas MD PCP: Lorena Talbot MD Status: REG CLI Study: Unilat Lt Diag Digital AND CAD Date of Exam: 01/01/15 Exam# [id number] Ordering Dr: Pat Buchanan AMMOGRAPHY - UNILATERAL [...] t 15:34 EDT Tel , Service support [phone], CC: Pat Buchanan; Lorena Talbot MD Correctional Supervisor: Signed 21-Feb-2014 Bilat Scrn Digital & CAD Result: Comments: See Note; NOTES: [facility] Imaging Services [address] [place] [address] Breast Imaging Report MR#: [id number] Acct: [id number] Name: SYLVIA RAMIREZ Rep #: [id number] : 1955 F 58 From: Tobin Sawant MD PCP: Lorena Talbot MD Status: REG CLI Exam# [id number] Ordering Dr: Lorena Talbot MD MAMMOGRAPHY - [...] MD 201 08/03/28 at 9:41 EDT Tel [phone], Service support [phone], CC: Lorena Talbot MD Correctional Supervisor: Signed 21-Feb-2014 Dexa Bone Density Study (HP) Result: Comments: See Note; NOTES: [facility] Imaging Services [address] [place] [address] Bone Density Report MR#: [id number] Acct: [id number] Name: SYLVIA RAMIREZ Rep #: [id number] : 1955 F 58 From: Tobin Sawant MD PCP: Lorena Talbot MD Status: [facility] CLI Study: Dexa Bone Density Study (HP) Date of Exam: 02/21/14 Exam# [id number] Ordering Dr: Lorena Talbot MD STUDY: DUAL [...] Tobin Sawant MD at 12:35 EDT Tel [phone], Service support [phone], CC: Lorena Talbot MD Correctional Supervisor: Signed 08-Feb-2014 PT Discharge Summary Result: Comments: See Note; NOTES: [facility] Physical Therapy [facility] [facility] [place] [address] Fax REHABILITATION SERVICES DISCHARGE SUMMARY MR#: [id number] Acct: [id number] Name: SYLVIA RAMIREZ Rep #: [id number] : 1955 58 From: Karrie Chris Referring [...] concerns. Karrie Chris DPT T: NTS JOB: [id number] <Electronically signed by Karrie Chris > 02/08/14 0705 CC: Signed 02-Jan-2014 Inital Evaluation - PT Result: Comments: See Note; NOTES: [facility] Physical [facility] [address] [facility] [address] [place] [address] Fax REHABILITATION SERVICES INITIAL EVALUATION MR#: [id number] Acct: [id number] Name: SYLVIA RAMIREZ Rep #: [id number] : 1955 58 From: Karrie Chris Referring DrMontrell: Haile Aguilera DO Status: REG R Insurance: [facility] Eval Date: DATE OF SERVICE: 01/01/2014 [...] [place] for [place] 2 [...] pain. Karrie Chris DPT T: KRISHAN JOB: [id number] <Electronically signed by Karrie Chris > 01/02/14 [...] Comments: single lives alone, annie olvera elise [phone] dtr Status: Active No Drug Use Status: Active Non Smoker/No Tobacco Use Status: Active Number of Adult (age 18 or over) Dependents Comments: 2 Status: Active Tobacco use: Former smoker. Status: Active Smoking Status Name Dates Details Former smoker Vital Signs Date Test Result Details 87-Tuw-717368:39 Pulse 70 /min Comments: Pattern: Regular Respiration [...] 0.00 cm Results Date Description Value Details 56-Rda-619375:35 Methymalonic Acid, Serum Comments: PATIENT NOT FASTINGPERFORMED BY: [employer] [id number] BY: [employer] AutomotiveCapital Health System [facility])Vtqvfy[address] [place] [address] [id number] (44785) Disclaimer: SPRCS (Normal) Comments: This test was developed and its performance characteristicsdetermined by [employer]. It has not been cleared or approvedby the Food and Drug Administration. Methylmalonic Acid, Serum 82 nmol/L (Normal) Range: 0-378 26-Qrl-358486:35 Vitamin B-12 Comments: PATIENT NOT FASTINGPERFORMED BY: [employer] [id number] BY: [employer] [id number] [facility] [id number] (cyanocobalamin) (41118) Vitamin B12 852 pg/mL (Normal) Range: 232-1245 62-Zqe-186338:35 HELICOBACTER PYLORI Comments: PATIENT NOT FASTINGPERFORMED BY: [employer] [id number] BY: [facility] [facility] [id number] ANTIBODY (64044) H. pylori, IgG Abs 0.17 {Index_Value} (Normal) Range: 0.00-0.79 Comments: Negative <0.80 Equivocal 0.80 - 0.89 Positive >0.89 01-Fvf-449080:35 Creatine Kinase Total Comments: PATIENT NOT FASTINGPERFORMED BY: [employer] [id number] BY: [place] [address]78[address] [facility] [id number] (17533) Creatine Kinase,Total 425 U/L (Abnormal) Range: 24-173 04-Cip-003326:35 C-Reactive Protein Comments: PATIENT NOT FASTINGPERFORMED BY: [employer] [id number] BY: [address] [id number] ([address]37) C-Reactive Protein, Quant 6.0 mg/L (Abnormal) Range: 0.0-4.9 30-Nov-20172:50 Basic Metabolic Profile (BMP) Comments: [facility] [address] [place], [address] GAP 10 (Normal) Range: 5-15 CO2 26.0 [...] A.D.A. criteria.Please note revised GLUCOSE reference range kyiummuxf71/02/2018. :50 CBC W/Diff, Automated Comments: [facility] [address] [place], [place], [id number] SMEAR COMMENT SCANNED (Normal) Absolute Lymph 0.21 [...] K/mm3 (Abnormal) Range: 4.4-11.0 :50 Lipase Comments: [facility] [address] [place], [address] LIPASE 171 U/L (Normal) Range: 73-393 30-Nov-20172:50 Liver Profile Comments: [address] [place], [id number] D BILI 0.27 mg/dL (Normal) Range: 0.00-0.30 T BILI 1.10 mg/dL (Abnormal) Range: 0.20-1.00 ALT 36 U/L (Normal) Range: 13-56 ALK P 46 U/L (Normal) Range: 45-117 AST 32 U/L (Normal) Range: 15-37 GLOB 3.9 g/dL (Normal) Range: 2.2-4.2 ALB 3.6 g/dL (Normal) Range: 3.2-5.0 T PROT 7.5 g/dL (Normal) Range: 6.4-8.2 94-Ltb-468209:27 CBC-Complete Blood Cnt No Diff Comments: [address] [place], [place], [id number] MPV 10.2 fL (Normal) Range: 6.2-12.0 PLT [...] 4.2-5.4 WBC 4.0 K/mm3 (Abnormal) Range: 4.4-11.0 44-Jxi-230844:27 CPK Total, Creatine Kinase Comments: [address] [place], [place], [id number] CPK TOTAL 577 U/L (Abnormal) Range: 26-192 44-Ubv-063040:27 Liver Profile Comments: [facility] [address] [place], [place], [address] D BILI 0.16 mg/dL (Normal) Range: 0.00-0.30 T BILI 0.90 mg/dL (Normal) Range: 0.20-1.00 ALT 36 U/L (Normal) Range: 13-56 ALK P 43 U/L (Abnormal) Range: 45-117 AST 33 U/L (Normal) Range: 15-37 GLOB 3.7 g/dL (Normal) Range: 2.2-4.2 ALB 3.8 g/dL (Normal) Range: 3.2-5.0 T PROT 7.5 g/dL (Normal) Range: 6.4-8.2 70-Vqr-899876:27 Serum Creatinine AND GFR Comments: [facility] [address] [place], [place], [address] EST GFR - AA 163 mL/min (Normal) Comments: GFR Calc EST GFR 135 mL/min (Normal) Comments: Non- GFR Calc CREAT,SERUM 0.49 mg/dL (Abnormal) Range: 0.55-1.02 Comments: The validity of the calculated GFR AND GFRAA in patients over70 years has not been determined. Clinical correlation isessential. 09-Zmp-344528:23 CBC W/Diff, Automated Comments: [facility] [address] [place], [place], [id number] BASO STIP RARE (Normal) PLT EST ADEQUATE [...] 4.2-5.4 WBC 4.2 K/mm3 (Abnormal) Range: 4.4-11.0 03-Yqa-20580:34 CBC-Complete Blood Cnt No Diff Comments: [facility] [address] [facility] [place], [place], [id number] MPV 10.1 fL (Normal) Range: 6.2-12.0 PLT [...] 4.4-11.0 :34 CPK Total, Creatine Kinase Comments: [facility] [address] [place], [place], [address] CPK TOTAL 909 U/L (Abnormal) Range: 26-192 :34 Liver Profile Comments: [facility] [address] [place], [address] D BILI 0.16 mg/dL (Normal) Range: 0.00-0.30 T BILI 0.70 mg/dL (Normal) Range: 0.20-1.00 ALT 49 U/L (Normal) Range: 13-56 ALK P 52 U/L (Normal) Range: 45-117 AST 44 U/L (Abnormal) Range: 15-37 GLOB 3.8 g/dL (Normal) Range: 2.2-4.2 ALB 3.5 g/dL (Normal) Range: 3.2-5.0 T PROT 7.3 g/dL (Normal) Range: 6.4-8.2 :34 Serum Creatinine AND GFR Comments: [facility] Rdxjdhasdh57[address] [place], [address] EST GFR - AA 192 [...] B CORE,TOT Negative (Normal) Comments: Performed at: [address], [place], [place] [address]Cxl Director: Arsh Cuellar PhD, Phone: [phone] 30-Tyn-08039:23 Hepatitis C Antibodies Comments: Is Patient Fasting? [facility] (refer to report for specific site)refer to report for address and phone number HEP C AB 0.1 {s/co_ratio} (Normal) Range: 0.0-0.9 Comments: Negative: < 0.8 Indeterminate: 0.8 - 0.9 Positive: > 0.9 The CDC recommends that a positive HCV antibody result be followed up with a HCV Nucleic Acid Amplification test (313364). :23 Immunoglobulins G/A/M Comments: Is Patient Fasting? [facility] (refer to report for specific site)refer to report for address and phone number IMMUNOGL M 202 mg/dL (Normal) Range: 26-217 IMMUNO A 165 mg/dL (Normal) Range: 87-352 IMMUNO G 1092 mg/dL (Normal) Range: 700-1600 03-Nqk-620499:18 CBC-Complete Blood Cnt No Diff Comments: [facility] [address] [place], [place], [address] MPV 11.1 fL (Normal) Range: 6.2-12.0 PLT [...] 4.2-5.4 WBC 4.9 K/mm3 (Normal) Range: 4.4-11.0 08-Skt-237235:18 Liver Profile Comments: [facility] [address] [place], [place], [address] D BILI 0.13 mg/dL (Normal) Range: 0.00-0.30 T BILI 0.60 mg/dL (Normal) Range: 0.20-1.00 ALT 56 U/L (Normal) Range: 13-56 Comments: Please note revised ALT reference range aewgpkrei99/28/2018. ALK P 49 U/L (Normal) Range: 45-117 AST 57 U/L (Abnormal) Range: 15-37 GLOB 3.6 g/dL (Normal) Range: 2.2-4.2 ALB 3.6 g/dL (Normal) Range: 3.2-5.0 T PROT 7.2 g/dL (Normal) Range: 6.4-8.2 27-Wwg-711823:18 Serum Creatinine AND GFR Comments: [facility] Bxticlskni7572 [facility] [address]. [place], [place], [address] EST GFR - AA 164 mL/min (Normal) Comments: GFR Calc EST GFR 135 mL/min (Normal) Comments: Non- GFR Calc CREAT,SERUM 0.49 mg/dL (Abnormal) Range: 0.55-1.02 Comments: The validity of the calculated GFR AND GFRAA in patients over70 years has not been determined. Clinical correlation isessential. 60-Hls-57157:40 CBC-Complete Blood Cnt No Diff Comments: [facility] Yrwlueutpf19[address] [place], [place], [id number] MPV 11.0 fL (Normal) Range: 6.2-12.0 PLT [...] 4.4-11.0 :40 CPK Total, Creatine Kinase Comments: [facility] [address]yukow[address]fs[address] [place], [address] CPK TOTAL 1418 U/L (Abnormal) Range: 26-192 :40 Liver Profile Comments: [facility] Tgurnombpv0[address] [place], [address] D BILI 0.12 mg/dL (Normal) Range: 0.00-0.30 T BILI 0.60 mg/dL (Normal) Range: 0.20-1.00 ALT 59 U/L (Abnormal) Range: 13-56 Comments: Please note revised ALT reference range /28/2018. ALK P 48 U/L (Normal) Range: 45-117 AST 60 U/L (Abnormal) Range: 15-37 GLOB 3.6 g/dL (Normal) Range: 2.2-4.2 ALB 3.4 g/dL (Normal) Range: 3.2-5.0 T PROT 7.0 g/dL (Normal) Range: 6.4-8.2 :40 Serum Creatinine AND GFR Comments: [facility] X[address]bjyhind[address] [place], [address] EST GFR - AA 201 mL/min (Normal) Comments: GFR Calc EST GFR 166 mL/min (Normal) Comments: Non- GFR Calc CREAT,SERUM 0.41 mg/dL (Abnormal) Range: 0.55-1.02 Comments: The validity of the calculated GFR AND GFRAA in patients over70 years has not been determined. Clinical correlation isessential. 15-Zms-543868:31 CBC-Complete Blood Cnt No Diff Comments: [facility] T[address]en[address]rhp4[address] [place], [address] MPV 10.5 fL (Normal) Range: 6.2-12.0 PLT [...] 4.2-5.4 WBC 5.0 K/mm3 (Normal) Range: 4.4-11.0 62-Fpw-782948:31 CPK Total, Creatine Kinase Comments: [facility] Yte[address]alhnpd[address] [place], [place], [address] CPK TOTAL 924 U/L (Abnormal) Range: 26-192 33-Jmg-233485:31 Liver Profile Comments: [facility] [address] [place], [address] D BILI 0.12 mg/dL (Normal) [...] T PROT 7.6 g/dL (Normal) Range: 6.4-8.2 93-Ckb-732780:31 Serum Creatinine AND GFR Comments: [facility] G[address]uglnouq7[address] [place], [address] EST GFR - AA 142 mL/min (Normal) Comments: GFR Calc EST GFR 117 mL/min (Normal) Comments: Non- GFR Calc CREAT,SERUM 0.56 mg/dL (Normal) Range: 0.55-1.02 Comments: The validity of the calculated GFR AND GFRAA in patients over70 years has not been determined. Clinical correlation isessential. :18 CBC-Complete Blood Cnt No Diff Comments: [facility] Xsvviqizvm97[address] [place], [address](052) MPV 10.6 fL (Normal) Range: 6.2-12.0 PLT [...] 4.4-11.0 :18 CPK Total, Creatine Kinase Comments: [facility] [address] [place], [address] CPK TOTAL 1718 U/L (Abnormal) Range: 26-192 :18 Liver Profile Comments: [facility] [address] [place], [place], [address] D BILI 0.14 mg/dL (Normal) Range: 0.00-0.30 T BILI 0.60 mg/dL (Normal) Range: 0.20-1.00 ALT 58 U/L (Normal) Range: 12-78 ALK P 48 U/L (Normal) Range: 45-117 AST 60 U/L (Abnormal) Range: 15-37 GLOB 3.7 g/dL (Normal) Range: 2.2-4.2 ALB 3.5 g/dL (Normal) Range: 3.4-5.0 Comments: Please note revised Albumin AND Globulin reference rangeeffective 2017. T PROT 7.2 g/dL (Normal) Range: 6.4-8.2 38-Gqn-03213:18 Serum Creatinine AND GFR Comments: [facility] N[address]fjot[address] [place], [place], [address] EST GFR - AA 175 mL/min (Normal) Comments: GFR Calc EST GFR 145 mL/min (Normal) Comments: Non- GFR Calc CREAT,SERUM 0.46 mg/dL (Abnormal) Range: 0.55-1.02 Comments: The validity of the calculated GFR AND GFRAA in patients over70 years has not been determined. Clinical correlation isessential. 21-Sdt-608019:43 Basic Metabolic Profile (BMP) Comments: [facility] [address]yr[address] [place], [address] GAP 9 (Normal) Range: 5-15 [...] 7-18 GLU 97 mg/dL (Normal) Range: 70-110 96-Zbr-180705:43 CBC W/Diff, Automated Comments: [facility] G[address]wmqc[address] [place], [address] OVALOCYTE RARE (Normal) MACROCYTE 1+ [...] 4.2-5.4 WBC 5.5 K/mm3 (Normal) Range: 4.4-11.0 96-Ecs-121200:43 CPK Total, Creatine Kinase Comments: [facility] [address] [place] [address], [address] CPK TOTAL 1846 U/L (Abnormal) Range: 26-192 39-Una-172152:43 Liver Profile Comments: [facility] Tdvuvmxaxy4518 [facility] [place], [place], [address] D BILI 0.17 mg/dL (Normal) Range: 0.00-0.30 T BILI 0.70 mg/dL (Normal) Range: 0.20-1.00 ALT 60 U/L (Normal) Range: 12-78 ALK P 55 U/L (Normal) Range: 45-117 AST 69 U/L (Abnormal) Range: 15-37 GLOB 3.4 g/dL (Normal) Range: 2.3-3.5 ALB 3.7 g/dL (Normal) Range: 3.4-5.0 T PROT 7.1 g/dL (Normal) Range: 6.4-8.2 29-Mib-319213:26 Basic Metabolic Profile (BMP) Comments: [facility] Tdspynhnxv74[address] [place], [place], [address] GAP 6 (Normal) Range: 5-15 CO2 27.0 [...] 7-18 GLU 96 mg/dL (Normal) Range: 70-110 74-Cua-803246:26 CBC W/Diff, Automated Comments: [facility] Pr[address]tejixx[address] [place], [place], [address] Absolute Lymph 0.33 {X10_3/ul} (Abnormal) Range: 0.83-4.51 [...] 4.2-5.4 WBC 5.2 K/mm3 (Normal) Range: 4.4-11.0 00-Ftp-163735:26 CPK Total, Creatine Kinase Comments: [facility] [address] [place] [address], [address] CPK TOTAL 1661 U/L (Abnormal) Range: 26-192 16-Vys-726390:26 Liver Profile Comments: [address], [address] D BILI 0.12 mg/dL (Normal) Range: 0.00-0.30 T BILI 0.60 mg/dL (Normal) Range: 0.20-1.00 ALT 54 U/L (Normal) Range: 12-78 ALK P 50 U/L (Normal) Range: 45-117 AST 58 U/L (Abnormal) Range: 15-37 GLOB 3.9 g/dL (Abnormal) Range: 2.3-3.5 ALB 3.6 g/dL (Normal) Range: 3.4-5.0 T PROT 7.5 g/dL (Normal) Range: 6.4-8.2 2-Tpv-965449:44 CBC W/Diff, Automated Comments: ADD TO 0503:U685MTD TO 0503:N411Jnctyyv[address], [address] SMEAR COMMENT COMMENT (Normal) Comments: [...] 4.2-5.4 WBC 5.4 K/mm3 (Normal) Range: 4.4-11.0 7-Bem-186418:42 CPK Total, Creatine Comments: ADD CPK/BMP/REJHLBB1-4-RFsomdwuAd[facility] Rclxwijsqs01[address] [place], [address] Kinase CPK TOTAL 1438 U/L (Abnormal) Range: 26-192 1-Lpe-192006:42 CRP Comments: ADD CPK/BMP/MVKKMCS6-0-RVzewqaqAdams County Regional Medical Center Kkbwfixjsj15[address] [place], [place], [address] C-REACTIVE PROT 4.67 mg/L (Abnormal) Range: 0.0-3.0 Comments: C-Reactive Protein (CRP) provides useful information for thediagnosis, therapy and monitoring of inflammatory processesand associated diseases. For the evaluation of Relative Riskfor Cardiovascular Dise ase, a High Sensitivity CRP (HSCRP)should be ordered. 9-Vpp-335907:42 Erythrocyte Sed Rate Comments: [facility] Xxxzvemaqq7[address] [place], [address] SED RATE 39 mm/h (Abnormal) Range: 0-30 9-Ril-383450:42 Hepatitis ABC Profile Comments: [facility] (refer to report for specific site)refer to report for address and phone number COMMENT Comment (Normal) Comments: Non reactive HCV antibody screen is consistent with no HCVinfection, unless recent infection is suspected or otherevidence exists to indicate HCV infection.Performed at: [facility] [address] [id number] Director: Arsh Cuellar PhD, Phone: [phone] HCV Ab <0.1 {s/co_ratio} (Normal) Range: 0.0-0.9 Hep B Michael AB Reactive (Normal) Comments: Non Reactive: Inconsistent with immunity, less than 10 mIU/mL Reactive: Consistent with immunity, greater than 9.9 mIU/mL HEP B CORE,TOT Negative (Normal) HB CORE BE61729 Negative (Normal) HB SURF AG Negative (Normal) HEP A AB,T.6726 Positive (Abnormal) HEP A IgM 6734 Negative (Normal) 17-Ovn-556870:35 Basic Metabolic Profile (BMP) Comments: [facility] Imchvhndwx12[address] [place], [address] GAP 7 (Normal) Range: 5-15 [...] 7-18 GLU 105 mg/dL (Normal) Range: 70-110 24-Skc-508755:35 CBC W/Diff, Automated Comments: [facility] Uvqaejlsvo[address] [place], [place], [address] Absolute Lymph 0.28 {X10_3/ul} (Abnormal) Range: 0.83-4.51 [...] 4.2-5.4 WBC 5.3 K/mm3 (Normal) Range: 4.4-11.0 08-Yqf-242952:35 CPK Total, Creatine Kinase Comments: [facility] Yjqsvydcma88[address] [place], [place], [address] CPK TOTAL 2479 U/L (Abnormal) Range: 26-192 20-Zqg-194033:35 Liver Profile Comments: [facility] Rpoqnnvaiq6[address] [place], [place], [address] D BILI 0.17 mg/dL (Normal) Range: 0.00-0.30 T BILI 0.90 mg/dL (Normal) Range: 0.20-1.00 ALT 105 U/L (Abnormal) Range: 12-78 ALK P 52 U/L (Normal) Range: 45-117 AST 102 U/L (Abnormal) Range: 15-37 GLOB 3.6 g/dL (Abnormal) Range: 2.3-3.5 ALB 3.5 g/dL (Normal) Range: 3.4-5.0 T PROT 7.1 g/dL (Normal) Range: 6.4-8.2 1-Tbc-429005:33 Basic Metabolic Profile (BMP) Comments: [facility] Kmut[address]fmrac[address] [place], [place], [address] GAP 9 (Normal) Range: 5-15 CO2 27.0 [...] 7-18 GLU 94 mg/dL (Normal) Range: 70-110 1-Hyd-495368:33 CBC W/Diff, Automated Comments: [facility] Xrypdljmnn47[address] [place], [address] ANISO 2+ (Normal) Absolute Lymph [...] 4.2-5.4 WBC 4.8 K/mm3 (Normal) Range: 4.4-11.0 0-Mqp-597125:33 CPK Total, Creatine Kinase Comments: [facility] R[address]abkfqtpc45[address] [place], [address] CPK TOTAL 2987 U/L (Abnormal) Range: 26-192 3-Rge-874513:33 Liver Profile Comments: [facility] [address]iggh[address] [place], [place], [address] D BILI 0.09 mg/dL (Normal) Range: 0.00-0.30 T BILI 0.60 mg/dL (Normal) Range: 0.20-1.00 ALT 120 U/L (Abnormal) Range: 12-78 ALK P 62 U/L (Normal) Range: 45-117 AST 115 U/L (Abnormal) Range: 15-37 GLOB 3.6 g/dL (Abnormal) Range: 2.3-3.5 ALB 3.5 g/dL (Normal) Range: 3.4-5.0 T PROT 7.1 g/dL (Normal) Range: 6.4-8.2 67-Sqd-912827:54 Basic Metabolic Profile (BMP) Comments: [facility] [address]ilfhnxq80[address] [place], [place], [address] GAP 11 (Normal) Range: 5-15 CO2 25.0 [...] 7-18 GLU 102 mg/dL (Normal) Range: 70-110 83-Xmh-044390:54 CBC W/Diff, Automated Comments: [facility] [address]enssdaxgc8[address] [place], [place], [address] POIK RARE (Normal) PLT EST ADEQUATE (Normal) [...] 4.2-5.4 WBC 5.1 K/mm3 (Normal) Range: 4.4-11.0 58-Veu-803081:54 CPK Total, Creatine Kinase Comments: [facility] [address] [place] [address], [address] CPK TOTAL 1840 U/L (Abnormal) Range: 26-192 59-Ndh-564053:54 Liver Profile Comments: [facility] [address] [place], [place], [address] D BILI 0.13 mg/dL (Normal) Range: 0.00-0.30 T BILI 0.50 mg/dL (Normal) Range: 0.20-1.00 ALT 70 U/L (Normal) Range: 12-78 ALK P 56 U/L (Normal) Range: 45-117 AST 76 U/L (Abnormal) Range: 15-37 GLOB 3.7 g/dL (Abnormal) Range: 2.3-3.5 ALB 3.5 g/dL (Normal) Range: 3.4-5.0 T PROT 7.2 g/dL (Normal) Range: 6.4-8.2 :55 TEMPORAL ARTERY BX See Note (Normal) Comments: [facility] [address] [place], [place], [address] Comments: Patient: SYLVIA RAMIREZ : 1955 (60/F) Acct Num: [id number] Phys: Lyndon Saavedra MD Unit Num: [id number] Loc: [facility]SPEC Specimen: [id number] Received: 01/20/161813 Spec Type : TEMPORAL TISSUES TISSUES: COMMENT Elastic stain with matched control is used in the evaluation of the specimen. GROSS DESCRIPTION Received is one container labeled with the pat ient's name and designated left temporal artery. The specimen consists of a single elongated fragment of wiley tissue measuring 0.5 x <0.1 x <0.1 cm. The specimen is totally submitted in [facility] ette for post fixation serial sectioning. / AM:rickie 01/21/16 TC:5 CPT:57680, 39694 HEADER OPERATION: Left temporal artery biopsy PRE-OP [...] W/Diff, Automated Comments: Order Date: 01/10/16[facility] Date[facility] Ocgtxvyawx9218 [address] [place], [place], [address] SMEAR COMMENT SCANNED (Normal) Absolute Lymph 0.26 [...] :05 CRP Comments: Order Date: 01/10/16Order Date: 01/10/16[facility] [address]iarzwlxcl[address] [place], [address] C-REACTIVE PROT 192.00 mg/L (Abnormal) Range: 0.0-3.0 Comments: C-Reactive Protein (CRP) provides useful information for thediagnosis, therapy and monitoring of inflammatory processesand associated diseases. For the evaluation of Relative Riskfor Cardiovascular Dise ase, a High Sensitivity CRP (HSCRP)should be ordered. 88-Lpr-66355:05 Erythrocyte Sed Rate Comments: Order Date: 01/10/16Order Date: [facility]16[facility] Ddpdgizpzy89[address] [place], [address] SED RATE 79 mm/h (Abnormal) Range: 0-30 :46 Basic Metabolic Profile (BMP) Comments: [facility] Bepbansfmk[address] [place], [address] GAP 3 (Abnormal) Range: 5-15 CO2 27.0 [...] A.D.A. criteria. :46 CBC W/Diff, Automated Comments: [facility] Ptamrgvdyp77[address] [place], [address] ANISO 1+ (Normal) PLT EST ADEQUATE (Normal) [...] (Abnormal) WBC 5.1 K/mm3 (Normal) Range: 4.4-11.0 48-Jcv-161632: NEUROMA - See Note (Normal) Comments: [facility] [address]qcirnzpr[address] [place], [address] 00 FOUNTAIN'S/TRAUMATIC Comments: Patient: SYLVIA RAMIREZ : 1955 (60/F) Acct Num: [id number] Phys: Stacie [facility] Unit Num: [id number] Loc: [facility] Specimen: [id number] Received: 04/15/15 - 0755 Spec Type: N EUROMA TISSUES TISSUES: GROSS DESCRIPTION Received is one container labeled with the patient name and designated right third intermetatarsal space neuroma. The specimen consists of multiple pieces of wiley-yellow soft tissue measuring in aggregate 2.5 x 2 x 0.3 cm. The specimenis totally submitted in one cassette. 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 MICROSCOPIC DIAGNOSIS Soft tissue of right hand, third intermetatarsal space, excision: Consistent with neuroma. AM: 04/16/15 Signed Joel [facility] 04/16/15 <signature on file> 32-Psk-196061: BREAST BIOPSY (CHOOSE See Note (Normal) Comments: [facility] Xrvonqodfu[address] [place], [address] 10 SITE) Comments: Patient: SYLVIA RAMIREZ : 1955 (59/F) Acct Num: [id number] Phys: Jaxon Álvarez MD Unit Num: [id number] Loc: LABSPEC Specimen: [id number] Received: 02/06/151614 Spec Type: BREAST BX TISSUES [...] one cassette. / AM: 02/07/15 TC:5 CPT: 24798 HEADER OPERATION: U/S guided core biopsy left [...] CHOL 213 mg/dL (Abnormal) Comments: <200 mg/dL Ilypdabvt622-872 mg/dL Borderline>240 mg/dL High Risk 57-Der-563291:03 PARATHORMONE (74368) Comments: PATIENT NOT FASTINGPERFORMED BY: [employer] [place] [id number] Information: Q24987,2ND ORDER NO DRAW F EE PTH, Intact 23 pg/mL (Normal) Range: 15-65 85-Evb-261027:02 TSH (THYROID STIMULATING Comments: PATIENT NOT FASTINGPERFORMED BY: MAYKOR [employer] Acl[address]ra[address] [id number] HORMONE) (44749) TSH 0.733 {uIU/mL} (Normal) Range: 0.450-4.500 :02 CALCIFEDIOL (48823) Comments: PATIENT NOT FASTINGPERFORMED BY: [facility] Cydfwe1048 Torres RoadDublin [place] [id number] Vitamin D, 25-Hydroxy 28.9 ng/mL (Abnormal) Range: 30.0-100.0 Comments: Vitamin D deficiency has been defined by the [place] ofMedicine and an Endocrine Society practice guideline as alevel of serum 25-OH vitamin D less than 20 ng/mL (1,2).The Endocrine Society went on to further define vitamin Dinsufficiency as a level between 21 and 29 ng/mL (2).1. IOM ([place] of Medicine). 2010. Dietary reference intakes for calcium and D. [place]: The National Academies Press.2. Fernie FERGUSON, Saida OCONNOR, Esdras JIMENEZ, et al. Evaluation, treatment, and prevention of vitamin D deficiency: an Endocrine Society clinical practice guideline. JCEM. 2010; 96(7):1911-30. 77-Dko-868473:02 METABOLIC PANEL, Comments: PATIENT NOT FASTINGPERFORMED BY: [facility] Utoztj4699 [facility] [id number] Information: [id number],S35912 COMPREHENSIVE (21935) ALT (SGPT) 77 [iU]/L (Abnormal) Range: 0-32 [...] Glucose, Serum 110 mg/dL (Abnormal) Range: 65-99 35-Tkr-773950:28 CBCD Comments: NO CHARGE REDRAW ANC 7.5 [...] 4.2-5.4 WBC 8.6 K/mm3 (Normal) Range: 4.4-11.0 61-Pln-640878:29 SED Comments: NO CHARGE REDRAW tSEDRATE 20 mm/h (Normal) Range: 0-30 60-Cir-917112:42 Urinalysis, Office (51885) UA - LEUKOCYTE ESTERASE Negative (Normal) UA - NITRITE Negative (Normal) URINE UROBILINGN MARIE TIMED Normal mg/dL (Normal) UA - PROTEIN Negative mg/dL (Normal) UA - PH 7 (Normal) UA - BLOOD Negative (Normal) UA - SPECIFIC GRAVITY 1.020 (Normal) UA - KETONES Small mg/dL (Normal) UA - BILIRUBIN Negative (Normal) UA - GLUCOSE Negative (Normal) 9-Nps-044997:38 Systemic Lupus Profile Comments: PATIENT NOT FASTINGPERFORMED BY: [facility]Biiklt7227 [facility] [id number] Information: [id number],V47489 (74258) Anti-DNA (DS) Ab Qn 3 {IU/mL} (Normal) Range: 0-9 Comments: Negative <5 Equivocal 5 - 9 Positive >9 Sjogren's Anti-SS-B 0.2 {AI} (Normal) Range: 0.0-0.9 Sjogren's Anti-SS-A <0.2 {AI} (Normal) Range: 0.0-0.9 Antichromatin Antibodies <0.2 {AI} (Normal) Range: 0.0-0.9 RA Latex Turbid. 8.4 {IU/mL} (Normal) Range: 0.0-13.9 Iraheta Antibodies <0.2 {AI} (Normal) Range: 0.0-0.9 PHYSIOLOGY TEACHER Antibodies <0.2 {AI} (Normal) Range: 0.0-0.9 5-Iua-450196:05 HAND MIN 3 VIEWS Radiology Report See [...] Signed:Tobin Sawant M.D.November 25 at 2:42:01 PM [id number] Signed GP/GP If you are the referring physician and would like to consult with theradiologist who provided this interpretation, please contact Amber calixto M.D. at [phone]. If this radiologist is unavailable, youwill be directed to another radiologist to assist. If you are a patient with a question regarding this report, pleasecontactyour referr ing physician directly. Professional Interpretation Provided By: [employer], Phone , These documents contain legally protected [...] on 11/25/121453 Sign by: Tobin Sawant MD 7-Wdm-075288:04 HAND MIN 3 VIEWS Radiology Report See [...] swelling. Signed:Tobin Sawant M.D.November at 2:42:30 PM [id number] Signed GP/GP If you are the referring physician and would like to consult with theradiologist who provided this interpretation, please contact Tobin Sawant M.D. at [phone]. If this radiologist is unavailable, youwill be directed to another radiologist to assist. If you are a patient with a question regarding this report, pleasecontactyour r rulaing physician directly. Professional Interpretation Provided By: [employer], Phone , These documents contain legally protected [...] 11/25/12 1454 Sign by: Tobin Sawant MD 7-Gmv-264982:04 WRIST MIN 3 VIEWS Radiology See Note [...] Sawant M.D.November 25, 2012 at 2:43:33 PM [id number] Signed GP/GP If you are the referring physician and would like to co nsult with theradiologist who provided this interpretation, please contact Jaz Falk at [phone]. If this radiologist is unavailable, youwill be directed to another radiologist to [facility]. If you are a patient with a question regarding this report, pleasecontactyour referring physician directly. Professional Interpretation Provided By: [employer], Phone ,Fax These documents contain legally protected [...] 11/25/12 1456 Sign by: Tobin Sawant MD 6-Zah-224920:04 WRIST MIN 3 VIEWS Radiology See Note [...] Sawant M.D.November 25, 2012 at 2:42:31 PM [id number] Signed GP/GP If you are the referring physician and would like to con sult with theradiologist who provided this interpretation, please contact Jaz Falk at [phone]. If this radiologist is unavailable, youwill be directed to another radiologist to ed slaughter. If you are a patient with a question regarding this report, pleasecontactyour referring physician directly. Professional Interpretation Provided By: [employer], Phone , These documents contain legally protected [...] 11/25/12 1457 Sign by: Tobin Sawant MD 7-Opp-289763:50 CCP ANTIBODY (05335) Comments: PATIENT NOT FASTINGPERFORMED BY: extraTKT Arswui6596 [facility] [id number] BY: [employer] [address] [id number] CCP Antibodies IgG/IgA 21 {units} (Abnormal) Range: 0-19 Comments: Negative <20 Weak positive 20 - 39 Moderate positive 40 - 59 Strong positive >59 8-Bcn-986479:50 SED RATE ERYTHROCYTE Comments: PATIENT NOT FASTINGPERFORMED BY: CalmSealin6370 [address] [facility] [place] [id number] BY: [address] [id number] ([address]) Sedimentation Rate-Westergren 2 mm/h (Normal) Range: 0-40 2-Emw-620413:50 C-REACTIVE PROTEIN (02463) Comments: PATIENT NOT FASTINGPERFORMED BY: [facility] Oeiejh7157 [facility] [id number] BY: [address] [id number] C-Reactive Protein, Quant 1.6 mg/L (Normal) Range: 0.0-4.9 2-Wbs-979523:50 TSH (50514) Comments: PATIENT NOT FASTINGPERFORMED BY: [facility] Pkjfnq7091 [facility] [id number] BY: [address] [id number] TSH 1.410 {uIU/mL} (Normal) Range: 0.450-4.500 7-Nhv-339276:50 RHEUMATOID FACTOR-QUANT Comments: PATIENT NOT FASTINGPERFORMED BY: [facility] [id number] BY: [address] [id number] ([id number]) RA Latex Turbid. 5.4 {IU/mL} (Normal) Range: 0.0-13.9 3-Mri-821974:50 PATRICK (ANTINUCLEAR ANTIBODY) Comments: PATIENT NOT FASTINGPERFORMED BY: [facility] [id number] [facility] [id number] BY: [address] [id number] ([id number]) PATRICK Direct Positive (Abnormal) 0-Gpr-144524:50 CBC WITH MANUAL DIFF Comments: PATIENT NOT FASTINGPERFORMED BY: [facility] [id number] [facility] [id number] BY: BN [facility] [id number] Inf ormation: [id number] ([id number]) Immature Grans (Abs) 0.0 {x10E3/uL} (Normal) Range: [...] 3.77-5.28 WBC 4.7 {x10E3/uL} (Normal) Range: 4.0-10.5 9-Qjy-037461:50 METABOLIC PANEL, Comments: PATIENT NOT FASTINGPERFORMED BY: [facility][id number] [facility] [id number] BY: Lab[address] [id number] COMPREHENSIVE ([id number]) ALT (SGPT) 22 [iU]/L (Normal) Range: 0-32 [...] PANEL, COMPREHENSIVE Comments: PATIENT WAS FASTINGPERFORMED BY: [employer] [id number] [facility] [id number] ([id number]) ALT (SGPT) 20 [iU]/L (Normal) Range: 0-40 [...] MANUAL DIFF Comments: PATIENT WAS FASTINGPERFORMED BY: [employer] [id number] [facility] [id number] Information: [id number] (93496) Baso (Absolute) 0.0 {x10E3/uL} (Normal) Range: 0.0-0.2 [...] {x10E3/uL} (Abnormal) Range: 4.0-10.5 :18 LIPID PANEL (59752) Comments: PATIENT WAS FASTINGPERFORMED BY: [facility][id number] [facility] [id number] LDL Cholesterol Calc 128 mg/dL (Abnormal) Range: [...] Report See Note (Normal) Comments: Exam Number: [id number] UNILATERAL LEFT RIBS Several views of the [...] Report See Note (Normal) Comments: Exam Number: [id number] DORSAL SPINE AP and lateral views were [...] unspecified laterality Planned Observations METABOLIC PANEL, COMPREHENSIVE (75854)Indication: Hyperlipidemia, mild On: :49 Request LIPOPROTEIN, BLD, BY NMR (58998)Indication: Hyperlipidemia, mild On: :49 Request HEPATIC FUNCTION PANEL (85534)Indication: Hyperlipidemia, mild On: :28 Request LIPOPROTEIN, BLD, BY NMR (56214)Indication: Hyperlipidemia, mild On: :28 Request CBC, Platelets & Auto Diff (71122)Indication: Headache, occipital On: :26 Request Comments: all labs stat C-Reactive Protein (19199)Indication: Headache, occipital On: : Request Sed Rate Erythrocyte (67855)Indication: Headache, occipital On: : Request Sed Rate Erythrocyte (56131)Indication: Headache, occipital On: :09 Request LIPID PANEL (74948)Indication: Osteoarthrosis, not specified whether generalized/localized, lower leg On: 8-Eok-057973:11 Request Parathyroid Hormone-related Peptide (PTH-rP) (97727)Indication: Abnormal blood chemistry On: 58-Ypm-041436:02 Request METABOLIC PANEL, COMPREHENSIVE (09542)Indication: Swelling On: 36-Nug-124399:15 Request Comments: Add to standing order to be done today CPK TOTAL & ISOENZYMES (96270)Indication: Elevated CPK On: 08-Tvw-092925:14 Request Comments: repeat today add to standing labs C-Reactive Protein (95268)Indication: Elevated CPK On: 24-Lur-030046:14 Request Comments: include with standing labs today TSH (85604)Indication: Swelling On: 50-Ezc-884714:12 Request Comments: Add to current standing order for today only Print this for pt MICROALBUMIN URINE QUANT (20083)Indication: Swelling On: 77-Gif-864506:43 Request MICROALBUMIN: CREATININE RATIO (77481) AND (20871)Indication: Swelling On: 55-Zgr-557293:43 Request EXTRCTBL NUCLR ANTGEN EA (84187) test code 006963Xdrxiyklwi: Abnormal blood chemistry On: Request ANTI-Sm (ANTI [place]HE[place] ANTIBODY) (19650) test code 950593Agovvqprue: Abnormal blood chemistry On: Request ANTI-PHYSIOLOGY TEACHER (ANTI RIBONUCLEAR PROTEIN ANTIBODY) (56360) test code 729154Sofwcihxkk: Abnormal blood chemistry On: Request DNA ANTIBODY-NATV/DBL ST (98774) test code 803292Wjazgicfei: Abnormal blood chemistry On: Request URINALYSIS (10323)Indication: Malignant neoplasm of breast (female) On: :27 Request CBC (Auto) (41526)Indication: Malignant neoplasm of breast (female) On: :22 Request Metabolic Panel, Comprehensive (28723)Indication: Malignant neoplasm of breast (female) On: :22 Request Planned Procedures Bone Density StudyBy: Dahiana HERRING, On: 01-Feb-2018 Intent Lorena Hopson MD Comments: due after 03-10-18 INJECTION, PROLIA (J0897)By: On: 14-Jul-2017 Intent Lorena Talbot MD, MD, Dana Comments: lot: [id number]: 09/2019site/route: R arm/SQamt: prefilled syringeVIS signed when applicableBLU Waters INJECTION, PROLIA (J0897)By: On: 17-Dec-2016 Intent Lorena Talbot MD, MD, Dana Comments: Lot:[id number]:02/11Dose:60mlRoute:sub q Site:r armGiven By:CHARLETTE signed M Radiology - ChestBy: Dahiana HERRING, On: 02-Jul-2016 Intent Lorena Hopson MD Comments: recheck approx. 4 weeks check before 08-03-16 follow up Radiology - Chest- PA and LatBy: On: 02-Jul-2016 Intent Lorena Talbot MD, MD, Dana M Inhaler Demo ([id number])By: Dahiana HERRING, On: 02-Jul-2016 Intent Lorena Hopson MD Aerosol Treatment (64788)By: On: 02-Jul-2016 Intent Lorena Talbot MD, MD, Dana M INJECTION, PROLIA (J0897)By: On: 12-Jun-2016 Intent Lorena Talbot MD, MD, Dana Comments: lot: [id number]: 08/12site/route: R arm/SQamt: prefilled syringe 60mgVIS signed when applicableBLU Waters LE Arterial Exam - LowerBy: Dahiana On: 02-Apr-2016 Intent Lorena HERRING MD, Dana M Aerosol Treatment (70899)By: Dewayne On: 04-Mar-2015 Intent Pat GARCIA RIGHT MAMMOGRAM (15227)By: Dewayne On: 04-Mar-2015 Pat Patel CNP Breast Ultrasound - LeftBy: Dewayne On: 01-Jan-2015 Pat Patel CNP Comments: call results to Nabil at [facility] LEFT MAMMOGRAM ([id number])By: Dewayne On: 01-Jan-2015 Pat Patel CNP Comments: call Agus Buchanan at [facility] with results Bone Density StudyBy: Dahiana HERRING, On: 31-Jan-2014 Intent Lorena Hopson MD BILATERAL MAMMOGRAMS (11579)By: On: 31-Jan-2014 Intent Lorena Talbot MD, MD, Dana M Kenalog Injection, 10 mgm On: 05-Dec-2013 Intent (J3301)By: Lorena Talbot MD Comments: lot: [id number]: 04/09site/route: L and R knee/joint injamt: 1cc [...] Bryan DO On: 08-Jun-2013 Intent Ear Irrigation (79002)By: Randi On: 08-Jun-2013 Intent Becky THOMAS Comments: small amt came out of both ears but still thin film on rim Radiology - Wrist - BilateralBy: On: 25-Nov-2012 Intent Becky Bryan DO Radiology - Hand - BilateralBy: On: 25-Nov-2012 Intent Becky Bryan DO IMMUNIZATION ADMIN ([id number])By: On: 04-May-2012 Intent Katerina Broderick Comments: Lot:[id number]:07-30-13Dose:prefilledRoute:IMSite:R armGiven By:ALYSSA COMPLETE ON THIS DATE IMMUNIZATION ADMIN ([id number])By: On: 09-Jun-2011 Intent Eneida Beth Comments: Lot:[id number]:01/30/13Amt:prefilledRoute:IMSite:right deltGiven By: KENNEDY Greene IMMUNIZATION ADMIN ([id number])By: On: 11-May-2011 Intent Shavon Bunch LPN Comments: Lot #[id number]/1/13Site-right deltoidgiven by: Jeffrey Bunch LPN TDAP VACCINE >7 IM ([id number])By: On: 04-May-2011 Intent Lorena Talbot MD, MD, Dana M IMMUNIZATION ADMIN ([id number])By: On: 04-May-2011 Intent Lorena Talbot MD, MD, Dana M Kenalog Injection, 10 mgm On: 27-Jun-2010 Intent (J3301)By: Lorena Talbot MD, MD, Dana M Kenalog Injection, 10 mgm On: 27-Jun-2010 Intent (J3301)By: Lorena Talbot MD, MD, Dana M DXA, BONE DENSITY, AXIAL SKELETON On: 14-Nov-2009 Intent (30786)By: Lorena Talbot MD Comments: estrogen def, medication high risk Lorena Talbot MD Venous Doppler - LeftBy: Dahiana On: 25-Sep-2009 Intent Lorena HERRING MD, Dana M Comments: lower Svuavvfeb-Khr-Xrgf (28140)By: On: 31-May-2009 Intent Lorena Talbot MD, MD, Dana Comments: pain along rib M Radiology - Thoracic SpineBy: On: 31-May-2009 Intent Lorena Talbot MD, MD, Dana M PHYSICAL THERAPY EVALUATION On: 03-Apr-2008 Intent ([id number])By: Dewayne GARCIA, [place] Radiology - ChestBy: Dewayne REBAR FABRICATOR, On: 03-Apr-2008 Intent Asuncion Kenalog Injection, 10 [...] for Follow up acute care visit: In [place] and noted left arm red streak from [...] (left). Note for Calf pain: drove to [place] and at [employer]. wearing fit flops. in 4-10 left knee [...] incident not at work (working out at [employer]) and has been occurring in an intermittent [...] Osteoarthritis (715.96), Sleep disorder (780.50), Obesity,unspecified (278.00), [facility] Comprehensive Internal Medicine Office Visit On: 31-May-2009 [...] and type alot and also restart at [facility] Diagnosis: Parasthesia (782.0) Comprehensive Internal Medicine [...]
--- OUTSIDE RECORDS SUMMARY | 2018-05-19 10:13 | XMS RPT_ITS | Continuity of Care Document ---
:1955 Author Organization [facility] Address [facility] [address] [place] [address] Phone Care Team Providers Name Role Phone [...] calm day and working stay away from [facility]. Status: Active Epigastric pain (R10.13, 789.06) [...] (M19.90, 714.9) Comments: saw Dr. 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 Status: Active Interstitial lung disease (J84.9, 515) Comments: fall 2014 lung fcn was normal - psychiatric cns dr Liang at [facility] 11-16 PFTs normal stable Status: Active Malignant [...] PPD (R76.11, 795.51) Comments: see ID at [facility] in past Status: Active Pregnancies () Comments: [...] days Quantity: 30 {Tablet} Refills: 0 Ordered:03-Apr-2016 Dahiana HERRING, Lorena Sanchez MD Start : 03-Apr-2016 Active Comments:thirty Levaquin 500 [...] Refills: 0 Ordered:28-Feb-2018 Lorena Talbot MD, MD, Lorena Lewis Start : 28-Feb-2018 Active Prolia 60 MG/ML [...] days Quantity: 1 {Suspension} Refills: 0 Ordered:04-May-2012 Dahiana HERRING, Lorena Cheney MD, Lorena Lewis Start : 04-May-2012 End [...] for 0 days Refills: 0 Ordered:27-Jun-2008 Marilee Villavicecnio End : 02-Sep-2007 Discontinued BONIVA, 150MG (Oral [...] 23-Oct-2008 Cough (R05, 786.2) Comments: [place] some PND no reflux. Status: Resolved as [...] with patient xrays look up from the [facility]. CPPD. Status: Inactive as of 11-Jul-2015 Lipoma (D17.9, 214.9) Status: Inactive as of 11-Jul-2015 Low back pain (M54.5, 724.2) Status: Inactive as of 03-Oct-2008 Malnutrition (E46, 263.9) Status: Inactive as of 11-Jul-2015 Neck pain (M54.2, 723.1) Status: Inactive as of 22-Sep-2016 Obesity, unspecified (E66.9, 278.00) Status: Inactive as of 22-Sep-2016 Osteoarthritis (M17.10, 715.96) Comments: sees [facility] in mdial lateral left joint compartment Status: [...] knee surgery left 1999 Completed bilateral foot kewloyqia-1413-1904 Completed Carpal Tunnel Completed Comments: left 2010 Dr. Chandler Carpal Tunnel right wrist Completed Comments: Dr. Chandler 06-03-10 Colonoscopy Completed Comments: 11-06-13 Dr. Gimenez repeat in 10 years Hernia 1998 Completed Hysterectomy, Total Completed Comments: Dr. Mabry Lumpectomy Completed Comments: 06/2006-lf breast Tonsillectomy Completed Comments: 1960 Date Value Details 24-Mar-2018 Dexa Bone Density Study Result: Comments: See Note; NOTES: [facility] Imaging Services [address] [place] [address] Dexa Bone Density Study MR#: [id number] Acct: [id number] Name: SYLVIA RAMIREZ Rep #: [id number] : 1955 F 63 From: Tobin Sawant MD PCP: Lorena Talbot MD Status: REG CLI Study: Dexa Bone Density Study Date of Exam: 03/24/18 Exam# [id number] Ordering Dr: Lorena Talbot MD STUDY: D [...] Tobin Sawant MD at 12:33 EST Tel [phone], Service support , CC: Lorena Talbot MD Cutting Table Operator: Signed 24-Mar-2018 SCREENING MAMM (CAD), BILAT Result: Comments: See Note; NOTES: [facility] Imaging Services [address] [place] [address] SCREENING MAMM (CAD), BILAT MR#: [id number] Acct: [id number] Name: SYLVIA RAMIREZ Rep #: [id number] : 1955 F 63 From: Tobin Sawant MD PCP: Lorena Talbot MD Status: REG CLI Study: SCREENING MAMM (CAD), BILAT Date of Exam: 03/24/18 Exam# [id number] Ordering Dr: Lorena Talbot MD MAMMOGRAPHY - [...] biopsy of a clin ically suspicious abnormality. [id number] Electronically Signed: Tobin Sawant MD at 11:21 EST Tel [phone], Service support , CC: Lorena Talbot MD Cutting Table Operator: Signed 30-Nov-2017 Emergency Department Summary Result: Comments: See Note; NOTES: [facility] Medical Records Department [address] [place] [address] Emergency Department Summary 11/30/17 0934 MR#: [id number] Acct: [id number] Name: SYLVIA RAMIREZ Rep #: [id number] : 1955 62 From: Eliezer Ojeda DO PCP: Lorena Talbot MD Status: REG ER - ER Visit Summary Date of Service: 11/30/17 Chief Complaint: [] History of Present Il lness: The patient is a 62 F [] Physical Examination: [] Test Results: [] Emergency Department Course and Treatment: [] Treatment Plan: [] Disposition: [] Impression: [] This note was generated with Multiplicom dictation software. It may contain incorrect words, spelling, and punctuation that were not noted in review of the chart prior to signing ED Disposition - Plan for ED Patient: Dispositio n: Home or Assisted Living Chief Complaint: Abd Pain Diagnosis: Right upper quadrant abdominal pain of unknown etiology Instructions: ED Abdominal Pain Unkn Cause Prescriptions: Hydrocodone Bitart/Apap 5-325 [Sandpoint 5MG-325MG] 1 tab PO Q6H PRN PRN 3 Days #10 tab PRN Reason: Pain Omeprazole [Prilosec] 20 mg PO DAILY #30 cap Referrals: Lorena Talbot MD [Primary Care Provider] - What to do if you have Problems For any increased pain, shortness of breath, bleeding, nausea or vomiting, chest pain, or any unexpected problems, contact your Primary Care Provider. Call [facility] ([phone]) or report to the closest Emergency Room. Call 911 if necessary. 11/30/17 0937 <Electronically signed by Eliezer Ojeda DO> Date Eliezer sanchez DO Cosigner Signature (If Indicated): Date CC: Lorena Talbot MD 30-Nov-2017 Emergency Department Summary Result: Comments: See Note; NOTES: [facility] Medical Records Department [address] [place] [address] Emergency Department Summary 11/30/17 0417 MR#: [id number] Acct: [id number] Name: SYLVIA RAMIREZ Rep #: [id number] : 1955 62 From: Bladimir Parikh MD PCP: Lorena Talbot MD Status: REG ER ADDENDUM by Eliezer Ojeda DO on 11/30/17 at 0934 Care of the patient was turned over to ne a t 7 AM. Right upper quadrant ultrasound was obtained and was normal. Patient was given a prescription for Prilosec and a short course of Sandpoint. Patient was instructed to follow-up with her [...] given opti on of staying until the litigation partner presents in the morning for ultrasound or [...] and vomiting This note was generated with Multiplicom dictation software. It may contain incorrect words, [...] your Primary Care Provider. Call [facility] ([phone]) or report to the closest Emerge ncy Room. Call 911 if necessary. 11/30/17 0702 <Electronically signed by Bladimir Parikh MD> Date Bladimir Parikh MD Cosigner Signature (If Ind icated): Date CC: Lorena Talbot MD 30-Nov-2017 Emergency Department Summary Result: Comments: See Note; NOTES: [facility] Medical Records Department [address] [place] [address] Emergency Department Summary 11/30/17 0417 MR#: [id number] Acct: [id number] Name: SYLVIA RAMIREZ Rep #: [id number] : 1955 62 From: Bladimir Parikh MD [...] or night sweats. She denies any ocular, auditor medical claims y or visual symptoms. She denies trauma. [...] was given option of staying until the litigation partner presents in the morning for ultrasound or [...] and vomiting This note was generated with TradeTools FXation s oftware. It may contain incorrect words, [...] your Primary Care Provider. Call [facility] ([phone]) or report to the closest Emergency Room. Call 911 if necessary. 11/30/17 0702 <Electronically signed by Bladimir Parikh MD&#62 ; Date Bladimir Parikh MD Cosigner Signature (If Indicated): Date CC: Lorena Talbot MD 30-Nov-2017 Gallbladder Result: Comments: See Note; NOTES: [facility] Imaging Services [address] [place] [address] Gallbladder MR#: [id number] Acct: [id number] Name: SYLVIA RAMIREZ Rep #: [id number] : 1 05/18/1954 F 62 From: Joseph Tony DO PCP: Lorena Talbot MD Status: REG ER Study: Gallbladder Date of Exam: 11/30/17 Exam# [id number] Ordering Dr: Bladimir Parikh MD STUDY: ABDOMINAL [...] CC: Lorena Talbot MD; Bladimir Parikh MD Cutting Table Operator: Signed 16-Mar-2017 SCREENING MAMM (CAD), BILAT Result: Comments: See Note; NOTES: [facility] Imaging Services [address] [place] [address] SCREENING MAMM (CAD), BILAT MR#: [id number] Acct: [id number] Name: SYLVIA RAMIREZ Rep #: [id number] : 1955 F 61 From: Tobin Sawant MD PCP: Lorena Talbot MD Status: REG CLI Study: SCREENING MAMM (CAD), BILAT Date of Exam: 03/16/17 Exam# [id number] Ordering Dr: Yomi Pérez AMMOGRAPHY - BILATERAL [...] delay biopsy of a clinically suspicious abnormality. [id number] Electronically Signed: Tobin Sawant MD at 10:39 EST Tel [phone], Service support , CC: Lorena Talbot MD; Yomi Pérez DO Cutting Table Operator: Signed 02-Jul-2016 Chest PA and Lateral Result: Comments: See Note; NOTES: [facility] Imaging Services [address] [place] [address] Verdana 4d Chest PA and Lateral MR#: [id number] Acct: [id number] Name: ALICIA RAMIREZCALLUM Kelley Rep #: [id number] : 1955 F 61 From: Yecenia Khan MD PCP: Lorena Talbot MD Status: REG CLI Study: Chest PA and Lateral Date of Exam: 07/02/16 Exam# [id number] Ordering Dr: Lorena Talbot MD STUDY: X-RAY [...] MD at 15:38 EST , Service support [phone], CC: Lorena Talbot MD Cutting Table Operator: Signed 10-Apr-2016 Vascular Test/LEAS/UEAS Result: Comments: See Note; NOTES: [facility] Cardiovascular Services [address] [place] [address] Verdana 4d Lower Ext Art Exam w/o Exercis MR#: [id number] Acct: [id number] Name: SYLVIA GUADARRAMA Rep #: [id number] : 1955 61 From: Jim Martin MD Primary Care: Lorena Talbto MD Status: REG CLI Ordering Dr: Lorena [...] bilaterally. Jim Vidal MD T: NTS JOB: [id number] 04/10/16 1306 <Electronically signed by Jim Martin MD> Date Jim Martin MD CC: Lorena Talbot MD Date Dictated: 04/08/161722 Date Transcribed: 04/08/161722 Cutting Table Operator: Signed 10-Mar-2016 Bilat Scrn Digital AND CAD Result: Comments: See Note; NOTES: [facility] Imaging Services [address] [place] [address] Verdana 4d Bilat Scrn Digital AND CAD MR#: [id number] Acct: [id number] Name: SYLVIA RAMIREZ Rep #: [id number] : 1955 F 60 From: Tobin Sawant MD PCP: Lorena Talbot MD Status: REG CLI Study: Abhay Mroaes Digital AND CAD Date of Exam: 03/10/16 Exam# [id number] Ordering Dr: Jose Pérez ul DO MAMMOGRAPHY [...] no significant change since the prior study. HPBI/Abhay Moraes Digital AND CAD IMPRESSION: Stable bilateral screeni ng mammogram. Yearly follow-up mammogram recommended. (A) ASSESSMENT CATEGORY: BIRADS Category 2: Benign. A letter regarding these results will be sent to the [facility] nt by the facility within 30 days. Approximately 10% of breast cancers are not detected by mammography. A normal mammogram should not delay biopsy of a clinically suspicious abnormality. [id number] Elect ronically Signed: Tobin Sawant MD at 11:03 EST Tel [phone], Service support [phone], CC: Lorena Talbot MD; Yomi Pérez DO Cutting Table Operator: Signed 10-Mar-2016 Dexa Bone Density Study (HP) Result: Comments: See Note; NOTES: [facility] Imaging Services [address] [place] [address] Verdana 4d Dexa Bone Density Study (HP) MR#: [id number] Acct: [id number] Name: MARCELA RAMIREZ Rep #: [id number] : 1955 F 60 From: Tobin Sawant MD PCP: Lorena Talbot MD Status: REG CLI Study: Dexa Bone Density Study (HP) Date of Exam: 03/10/16 Exam# [id number] Ordering Dr: KODY NESBITT STUDY: DUAL ENERGY [...] Tobin Sawant MD at 10:18 EST Tel [phone], Service support [phone], CC: Lorena Talbot MD; KODY NESBITT Cutting Table Operator: Signed 07-Jul-2015 History and Physical Exam Result: Comments: See Note; NOTES: [facility] Medical Records Department [address] [place] [address] History and Physical 07/07/15 1809 MR#: [id number] Acct: [id number] Name: SYLVIA RAMIREZ Rep #: [id number] : 1955 60 From: Lucy Figueroa MD [...] mentioned above presented to the emergency room [facility] of left upper extremity soreness, [...] 2,000 unit PO DAILY 07/07/15 D] [place]-3 Fatty Acids/Fish Oil 2 each PO DAILY 07/07/15 [[place] 3 1,000 mg Softgel] Turmeric [Turmeric Root] [...] 92.3 H Lymph % (Auto) 4.1 L [place] % (Auto) 2.2 Eos % (Auto) 1.0 [...] Subcu Lovenox. This note was generated with TradeTools FXation software. It may contain incorrect words, spelling, and punct uation that were not noted in checking the note before signing. 07/07/151817 <Electronically signed by Lucy Figueroa MD> Date Lucy Figueroa MD Cosigner Signature (if applicable): Date CC: Lorena Talbot MD; Lucy Figueroa Signed 18-Apr-2015 Operative Report Result: Comments: See Note; NOTES: [facility] Medical Records Department [address] [place] [address] Operative Report MR#: [id number] Acct: [id number] Name: KIRSTEN RAMIREZ Rep #: [id number] : 1955 60 From: Galileo Quinones DPM PCP: Lorena Talbot MD Status: [facility] DATE OF SERVICE: DATE OF SURGERY: April 12, 2015. PROCEDURE: Excision of right 3rd in termetatarsal space neuroma. PREOPERATIVE DIAGNOSIS: Third intermetatarsal space neuroma, right foot. POSTOPERATIVE DIAGNOSIS: Third intermetatarsal space neuroma, right foot. SURGEON: Marlon BartholomewPDavid ASSISTANTS: Rufino Haney D.P.M. ANESTHESIA: MAC anesthesia [...] corticosteroid injections, immobilization, anti- inflammatories, activity modifications; phelpsmaura nielsen, still has pain chronic pian to [...] needed. Galileo Quinones DPM T: KRISHAN JOB: [id number] 04/18/15 0757 <Electronic ally signed by Galileo Quinones DPM> Date Galileo Quinones DPM Cosigner Signature (If Indicated): Date CC: Lorena Talbot MD; Galileo Quinones DPM Date Dictated: 04/12/151647 Date Transcribed: 04/12/151647 Cutting Table Operator: Signed 12-Apr-2015 Discharge Instruction Result: Comments: See Note; NOTES: [facility] Medical Records Department [address] [place] [address] Instructions for Home/Discharge Instructions 04/12/15 1639 MR#: [id number] Acct: [id number] Name: SYLVIA RAMIREZ Rep #: [id number] : 1955 60 From: Galileo Quinones DPM PCP: Lorena Talbot MD Status: REG [facility] Discharge Diet: Light diet - advance as [...] and Lateral Result: Comments: See Note; NOTES: [facility] Imaging Services [address] [place] [address] Verdana 4d Chest PA and Lateral MR#: [id number] Acct: [id number] Name: SYLVIA RAMIREZ Rep #: [id number] : 1955 F 60 From: Jose Fagan MD PCP: Lorena Talbot MD Status: PRE TNC Study: Chest PA and Lateral Date of Exam: 04/04/15 Exam# [id number] Ordering Dr: Virgen Quinones DPM STUDY: X-RAY [...] FACR at 13:58 EST , Service support [phone], RAD/Chest PA and Lateral IMPRESSION: No signs of acute cardiopulmonary disease Electronically Signed: Jose Fagan MD, FACR at 13:58 EST , Service support [phone], CC: Lorena Talbot MD; Galileo Quinones DPM Cutting Table Operator: Signed 29-Mar-2015 EKG ([id number]) Comments: nsr no acute chg poor R wave progression Result: [MEASUREMENTS ANALYSIS] Date of Test: 03/29/2015 13:38:32; Heart Rate: 73; AK Interval: 180; QRS: 88; QT Interval: 380; Corrected QT Interval (QTc): 402; P Wave Norman: 33; QRS Wave Norman: 30; T Wave Norman: 29; Blood Pressure: 120/78 [ECG DIAGNOSTIC STATEMENTS] Date of Test: 03/29/2015 13:38:32; Summary: Sinus Rhythm WITHIN NORMAL LIMITS 28-Mar-2015 Inital Evaluation - PT Result: Comments: See Note; NOTES: [facility] [address] [place] [address]. [address] [place] [address] Fax [facility] IN[facility] MR#: [id number] Acct: [id number] Name: SYLVIA RAMIREZ Rep #: [id number] : 1955 60 From: Gurdeep Carson Referring Dr.: Galileo Quinones DPM Status: REG RCR Ins urance: [facility] Date: Patient's Visit Information SYLVIA RAMIREZ [...] to be FAXED BACK to us at [phone] for Medicare purposes. Please let me know if there are questions or concerns regarding this plan of care. Physician Signature: Date: <Electronically signed by Gurdeep Carson > 03/28/15 1140 CC: Lorena Talbot MD; Galileo Quinones DPM [facility] Jeanne d For Medicare only, by signing this I certify the plan of care. Physicians Signature Date 08-Mar-2015 Unilat Rt Scrn Digital AND CAD Result: Comments: See Note; NOTES: [facility] Imaging Services [address] [place] [address] Verdana 4d Unilat Rt Scrn Digital AND CAD MR#: [id number] Acct: [id number] Na me: SYLVIA RAMIREZ Rep #: [id number] : 1955 F 59 From: Tobin Sawant MD PCP: Lorena Talbot MD Status: REG CLI Study: Unilat Rt Scrn Digital AND CAD Date of Exam: 03/08/15 Exam# [id number] Ordering Dr: Pat Buchanan MAMMOGRAPHY - UNILATERAL [...] delay biopsy of a clinically suspicious abnormality. [id number] Electronically Signed: Tobin Sawant MD 201 09/03/12 at 11:11 EST Tel [phone], Service support [phone], CC: Pat Buchanan; Lorena Talbot MD Cutting Table Operator: Signed 04-Mar-2015 Lower Ext/No Jt/w/o Result: Comments: See Note; NOTES: [facility] Imaging Services [address] [place] [address] Verdana 4d Lower Ext/No Jt/w/o MR#: [id number] Acct: [id number] Name: Cirilo RAMIREZ Rep #: [id number] : 1955 F 59 From: Jose Fagan MD PCP: Lorena Talbot MD Status: REG CLI Study: Lower Ext/No Jt/w/o Date of Exam: 03/04/15 Exam# [id number] Ordering Dr: Ward Quinones DPM STUDY: MRI [...] at 10:47 EST Tel , Service support [phone], CC: Lorena Talbot MD; Galileo Quinones DPM Cutting Table Operator: Signed 15-Jan-2015 Breast Limited Unilateral Result: Comments: See Note; NOTES: [facility] Imaging Services [address] [place] [address] Ultrasound Report MR#: [id number] Acct: [id number] Name: SYLVIA RAMIREZ Rep #: [id number] : 1955 F 59 From: Tobin Sawant MD PCP: Lorena Talbot MD Status: REG CLI Study: Breast Limited Unilateral Date of Exam: 01/15/15 Exam# [id number] Ordering Dr: Pat Buchanan STUDY : ULTRASOUND [...] Tobin Sawant MD at 13:27 EDT Tel [phone], Service support [phone], CC: Pat Buchanan ; Lorena Talbot MD Cutting Table Operator: Signed 01-Jan-2015 Breast Limited Unilateral Result: Comments: See Note; NOTES: [facility] Imaging Services [address] [place] [address] Ultrasound Report MR#: [id number] Acct: [id number] Name: SYLVIA RAMIREZ Rep #: [id number] : 1955 F 59 From: Frantz Rojas MD PCP: Lorena Talbot MD Status: REG CLI Study: Breast Limited Unilateral Date of Exam: 01/01/15 Exam# [id number] Ordering Dr: Pat Buchanan STUDY: ULT RASOUND [...] at 15:39 EDT Tel , Service support [phone], CC: Pat Buchanan; Lorena Talbot MD Cutting Table Operator: Signed 01-Jan-2015 Unilat Lt Diag Digital AND CAD Result: Comments: See Note; NOTES: [facility] Imaging Services [address] [place] [address] Breast Imaging Report MR#: [id number] Acct: [id number] Name: SYLVIA RAMIREZ Rep #: [id number] : 1955 F 59 From: Frantz Rojas MD PCP: Lorena Talbot MD Status: REG CLI Study: Unilat Lt Diag Digital AND CAD Date of Exam: 01/01/15 Exam# [id number] Ordering Dr: Pat Buchanan AMMOGRAPHY - UNILATERAL [...] t 15:34 EDT Tel , Service support [phone], CC: Pat Buchanan; Lorena Talbot MD Cutting Table Operator: Signed 21-Feb-2014 Bilat Scrn Digital & CAD Result: Comments: See Note; NOTES: [facility] Imaging Services [address] [place] [address] Breast Imaging Report MR#: [id number] Acct: [id number] Name: SYLVIA RAMIREZ Rep #: [id number] : 1955 F 58 From: Tobin Sawant MD PCP: Lorena Talbot MD Status: REG CLI Exam# [id number] Ordering Dr: Lorena Talbot MD MAMMOGRAPHY - [...] MD 201 08/03/28 at 9:41 EDT Tel [phone], Service support [phone], CC: Lorena Talbot MD Cutting Table Operator: Signed 21-Feb-2014 Dexa Bone Density Study (HP) Result: Comments: See Note; NOTES: [facility] Imaging Services [address] [place] [address] Bone Density Report MR#: [id number] Acct: [id number] Name: SYLVIA RAMIREZ Rep #: [id number] : 1955 F 58 From: Tobin Sawant MD PCP: Lorena Talbot MD Status: REG CLI Study: Dexa Bone Density Study () Date of Exam: 02/21/14 Exam# [id number] Ordering Dr: Lorena Talbot MD STUDY: DUAL [...] Tobin Sawant MD at 12:35 EDT Tel [phone], Service support [phone], CC: Lorena Talbot MD Cutting Table Operator: Signed 08-Feb-2014 PT Discharge Summary Result: Comments: See Note; NOTES: [facility] [address] [place] [address]. [address] [place], [place] [address] Fax REHABILITATION SERVICES DISCHARGE SUMMARY MR#: [id number] Acct: [id number] Name: SYLVIA RAMIREZ Rep #: [id number] : 1955 58 From: Karrie Chris Referring [...] it is appropriate she be discharged from [facility] and continue independent home exercise progra m. The patient was encouraged to call if she does have any questions or concerns. Karrie Chris DPT T: KRISHAN JOB: [id number] <Electronically signed by Karrie Chris > 02/08/14 0705 CC: Signed 02-Jan-2014 Inital Evaluation - PT Result: Comments: See Note; NOTES: [facility] Physical Therapy [address] [place], [place] [address] Fax REHABILITATION SERVICES INITIAL EVALUATION MR#: [id number] Acct: [id number] Name: SYLVIA RAMIREZ Rep #: [id number] : 1955 58 From: Karrie Chris Referring DrMontrell: Haile Aguilera DO Status: REG R Insurance: [facility] Eval Date: DATE OF SERVICE: [...] On Wednesday she is leaving for the [employer] and will be gone for approximately 2 [...] pain. Karrie Chris DPT T: NTS JOB: [id number] <Electronically signed by Karrie Chris > 01/02/1408 CC: Signed For Medicare only, by signing [...] Situation Comments: single lives alone, annie olivares [phone] dtr Status: Active No Drug Use Status: Active Non Smoker/No Tobacco Use Status: Active Number of Adult (age 18 or over) Dependents Comments: 2 Status: Active Tobacco use: Former smoker. Status: Active Smoking Status Name Dates Details Former smoker Vital Signs Date Test Result Details 29-Avq-603483:39 Pulse 70 /min Comments: Pattern: Regular Respiration [...] kg/m2 Body Surface Area Calculated 1.76 m2 24-Pmz-479386:33 Temperature 97.4 f Comments: Method: Oral Pulse [...] Value Details :49 CBC W/Diff, Automated Comments: [facility] [address] [place], [place], [id number] SMEAR COMMENT (Normal) Comments: LYMPHOPENIA NOTED Absolute [...] 4.2-5.4 WBC 6.0 K/mm3 (Normal) Range: 4.4-11.0 07-Kaf-230801:49 CPK Total, Creatine Kinase Comments: [facility] [address] [place] [address], [id number] CPK TOTAL 1954 U/L (Abnormal) Range: 26-192 66-Vyh-526653:49 Liver Profile Comments: [facility] [address] [place] [address], [id number] D BILI 0.14 mg/dL (Normal) Range: 0.00-0.30 T BILI 0.60 mg/dL (Normal) Range: 0.20-1.00 ALT 92 U/L (Abnormal) Range: 13-56 ALK P 61 U/L (Normal) Range: 45-117 AST 76 U/L (Abnormal) Range: 15-37 GLOB 3.7 g/dL (Normal) Range: 2.2-4.2 ALB 3.6 g/dL (Normal) Range: 3.2-5.0 T PROT 7.3 g/dL (Normal) Range: 6.4-8.2 65-Frx-562855:49 Serum Creatinine AND GFR Comments: [facility] [address] [place], [address] EST GFR - AA 137 mL/min (Normal) Comments: GFR Calc EST GFR 113 mL/min (Normal) Comments: Non- GFR Calc CREAT,SERUM 0.57 mg/dL (Normal) Range: 0.55-1.02 Comments: The validity of the calculated GFR AND GFRAA in patients over70 years has not been determined. Clinical correlation isessential. 73-Gsz-245787:35 Methymalonic Acid, Serum Comments: PATIENT NOT FASTINGPERFORMED BY: [employer] [address] [id number] BY: [employer] [facility] [id number] ([id number]) Disclaimer: SPRCS (Normal) Comments: This test was developed and its performance characteristicsdetermined by [employer]. It has not been cleared or approvedby the Food and Drug Administration. Methylmalonic Acid, Serum 82 nmol/L (Normal) Range: 0-378 95-Jek-726056:35 Vitamin B-12 Comments: PATIENT NOT FASTINGPERFORMED BY: [employer] [id number] BY: [facility] CenterPlmswv[facility] [id number] (cyanocobalamin) (22634) Vitamin B12 852 pg/mL (Normal) Range: 232-1245 65-Cmx-217602:35 HELICOBACTER PYLORI Comments: PATIENT NOT FASTINGPERFORMED BY: [facility] [employer] [id number] BY: Jump On ItDiane [place] [id number] [facility] [id number] ANTIBODY (67329) H. pylori, IgG Abs 0.17 {Index_Value} (Normal) Range: 0.00-0.79 Comments: Negative <0.80 Equivocal 0.80 - 0.89 Positive >0.89 73-Gvi-225243:35 Creatine Kinase Total Comments: PATIENT NOT FASTINGPERFORMED BY: [address] [id number] BY: [facility] [facility] [id number] (10417) Creatine Kinase,Total 425 U/L (Abnormal) Range: 24-173 46-Qsf-051411:35 C-Reactive Protein Comments: PATIENT NOT FASTINGPERFORMED BY: Lab[address] [id number] BY: [address] [id number] (46770) C-Reactive Protein, Quant 6.0 mg/L (Abnormal) Range: 0.0-4.9 30-Nov-20172:50 Basic Metabolic Profile (BMP) Comments: [facility] Dwkkhxenhd0834 [place], [address] GAP 10 (Normal) Range: 5-15 CO2 26.0 [...] A.D.A. criteria.Please note revised GLUCOSE reference range xtwerbmbt66/02/2018. :50 CBC W/Diff, Automated Comments: [facility] Ycqspiazpf4146 [address] [place], [place], [address] SMEAR COMMENT SCANNED (Normal) Absolute Lymph 0.21 [...] K/mm3 (Abnormal) Range: 4.4-11.0 :50 Lipase Comments: [facility] Wzfufgrnez9905 [address] [place], [place], [address] LIPASE 171 U/L (Normal) Range: 73-393 :50 Liver Profile Comments: [facility] Sdljekwvhb1163 [address] [place], [place], [address] D BILI 0.27 mg/dL (Normal) Range: 0.00-0.30 T BILI 1.10 mg/dL (Abnormal) Range: 0.20-1.00 ALT 36 U/L (Normal) Range: 13-56 ALK P 46 U/L (Normal) Range: 45-117 AST 32 U/L (Normal) Range: 15-37 GLOB 3.9 g/dL (Normal) Range: 2.2-4.2 ALB 3.6 g/dL (Normal) Range: 3.2-5.0 T PROT 7.5 g/dL (Normal) Range: 6.4-8.2 21-Ppx-771515:27 CBC-Complete Blood Cnt No Diff Comments: [facility] [address] [place], [id number] MPV 10.2 fL (Normal) Range: 6.2-12.0 PLT [...] 4.2-5.4 WBC 4.0 K/mm3 (Abnormal) Range: 4.4-11.0 72-Les-878890:27 CPK Total, Creatine Kinase Comments: [facility] [address] [place], [address] CPK TOTAL 577 U/L (Abnormal) Range: 26-192 81-Zqv-292311:27 Liver Profile Comments: [facility] [address] [place], [address] D BILI 0.16 mg/dL (Normal) Range: 0.00-0.30 T BILI 0.90 mg/dL (Normal) Range: 0.20-1.00 ALT 36 U/L (Normal) Range: 13-56 ALK P 43 U/L (Abnormal) Range: 45-117 AST 33 U/L (Normal) Range: 15-37 GLOB 3.7 g/dL (Normal) Range: 2.2-4.2 ALB 3.8 g/dL (Normal) Range: 3.2-5.0 T PROT 7.5 g/dL (Normal) Range: 6.4-8.2 33-Nwx-233244:27 Serum Creatinine AND GFR Comments: [facility] Jcqvqrqyjm1145 [place], [address] EST GFR - AA 163 mL/min (Normal) Comments: GFR Calc EST GFR 135 mL/min (Normal) Comments: Non- GFR Calc CREAT,SERUM 0.49 mg/dL (Abnormal) Range: 0.55-1.02 Comments: The validity of the calculated GFR AND GFRAA in patients over70 years has not been determined. Clinical correlation isessential. 29-Cnp-332578:23 CBC W/Diff, Automated Comments: [facility] Rzrnqymhxg2175 [place], [address] BASO STIP RARE (Normal) PLT [...] :34 CBC-Complete Blood Cnt No Diff Comments: [facility] [address] [place], [address] MPV 10.1 fL (Normal) Range: 6.2-12.0 PLT [...] 4.4-11.0 :34 CPK Total, Creatine Kinase Comments: [facility] Dcnwvibanu[address] [facility] [address] [place], [place], [address] CPK TOTAL 909 U/L (Abnormal) Range: 26-192 :34 Liver Profile Comments: [facility] Sdavrqcvnh82[address] [facility] [place], [address] D BILI 0.16 mg/dL (Normal) Range: 0.00-0.30 T BILI 0.70 mg/dL (Normal) Range: 0.20-1.00 ALT 49 U/L (Normal) Range: 13-56 ALK P 52 U/L (Normal) Range: 45-117 AST 44 U/L (Abnormal) Range: 15-37 GLOB 3.8 g/dL (Normal) Range: 2.2-4.2 ALB 3.5 g/dL (Normal) Range: 3.2-5.0 T PROT 7.3 g/dL (Normal) Range: 6.4-8.2 :34 Serum Creatinine AND GFR Comments: [facility] Sepwoffwgj9[address] [place], [place], [address] EST GFR - AA 192 mL/min (Normal) [...] CORE,TOT Negative (Normal) Comments: Performed at: - [address] [id number] Director: Arsh Cuellar PhD, Phone: [phone] 75-Icn-21711:23 Hepatitis C Antibodies Comments: Is Patient F[facility]? [facility] (refer to report for specific site)refer to report for address and phone number HEP C AB 0.1 {s/co_ratio} (Normal) Range: 0.0-0.9 Comments: Negative: < 0.8 Indeterminate: 0.8 - 0.9 Positive: > 0.9 The CDC recommends that a positive HCV antibody result be followed up with a HCV Nucleic Acid Amplification test (600156). 03-Caf-06796:23 Immunoglobulins G/A/M Comments: Is Patient Fasting? [facility] (refer to report for specific site)refer to report for address and phone number IMMUNOGL M 202 mg/dL (Normal) Range: 26-217 IMMUNO A 165 mg/dL (Normal) Range: 87-352 IMMUNO G 1092 mg/dL (Normal) Range: 700-1600 73-Peq-961523:18 CBC-Complete Blood Cnt No Diff Comments: [facility] Cxgqipzlvu5732 [facility] [address]. [place], [place], [address] MPV 11.1 fL (Normal) Range: 6.2-12.0 PLT [...] 4.2-5.4 WBC 4.9 K/mm3 (Normal) Range: 4.4-11.0 35-Ftm-955072:18 Liver Profile Comments: [facility] Jhaccdtvzh0120 [facility]. [place], [place], [address] D BILI 0.13 mg/dL (Normal) Range: 0.00-0.30 T BILI 0.60 mg/dL (Normal) Range: 0.20-1.00 ALT 56 U/L (Normal) Range: 13-56 Comments: Please note revised ALT reference range lpnuawdkb56/28/2018. ALK P 49 U/L (Normal) Range: 45-117 AST 57 U/L (Abnormal) Range: 15-37 GLOB 3.6 g/dL (Normal) Range: 2.2-4.2 ALB 3.6 g/dL (Normal) Range: 3.2-5.0 T PROT 7.2 g/dL (Normal) Range: 6.4-8.2 41-Xyg-678475:18 Serum Creatinine AND GFR Comments: [facility] [address] [place], [place], [address] EST GFR - AA 164 mL/min (Normal) Comments: GFR Calc EST GFR 135 mL/min (Normal) Comments: Non- GFR Calc CREAT,SERUM 0.49 mg/dL (Abnormal) Range: 0.55-1.02 Comments: The validity of the calculated GFR AND GFRAA in patients over70 years has not been determined. Clinical correlation isessential. :40 CBC-Complete Blood Cnt No Diff Comments: [facility] [address] [place], [place], [address] MPV 11.0 fL (Normal) Range: 6.2-12.0 PLT [...] 4.4-11.0 :40 CPK Total, Creatine Kinase Comments: [facility] [address] [place], [place], [address] CPK TOTAL 1418 U/L (Abnormal) Range: 26-192 91-Caf-12626:40 Liver Profile Comments: [facility] Nsmsxusuud6074 [place], [address] D BILI 0.12 mg/dL (Normal) Range: 0.00-0.30 T BILI 0.60 mg/dL (Normal) Range: 0.20-1.00 ALT 59 U/L (Abnormal) Range: 13-56 Comments: Please note revised ALT reference range zkatyxgui22/28/2018. ALK P 48 U/L (Normal) Range: 45-117 AST 60 U/L (Abnormal) Range: 15-37 GLOB 3.6 g/dL (Normal) Range: 2.2-4.2 ALB 3.4 g/dL (Normal) Range: 3.2-5.0 T PROT 7.0 g/dL (Normal) Range: 6.4-8.2 :40 Serum Creatinine AND GFR Comments: [facility] Mbrygdxxnp4871 [place], [address] EST GFR - AA 201 mL/min (Normal) Comments: GFR Calc EST GFR 166 mL/min (Normal) Comments: Non- GFR Calc CREAT,SERUM 0.41 mg/dL (Abnormal) Range: 0.55-1.02 Comments: The validity of the calculated GFR AND GFRAA in patients over70 years has not been determined. Clinical correlation isessential. 65-Iuh-461682:31 CBC-Complete Blood Cnt No Diff Comments: [facility] Yneedrpmiw23[address] [place], [place], [address] MPV 10.5 fL (Normal) Range: 6.2-12.0 PLT [...] 4.2-5.4 WBC 5.0 K/mm3 (Normal) Range: 4.4-11.0 24-Liz-126042:31 CPK Total, Creatine Kinase Comments: [facility] [address] [place], [place], [address] CPK TOTAL 924 U/L (Abnormal) Range: 26-192 81-Huk-696472:31 Liver Profile Comments: [facility] [address] [place], [address] D BILI 0.12 mg/dL (Normal) [...] T PROT 7.6 g/dL (Normal) Range: 6.4-8.2 51-Ehf-926504:31 Serum Creatinine AND GFR Comments: [facility] [address] [place], [address] EST GFR - AA 142 mL/min (Normal) Comments: GFR Calc EST GFR 117 mL/min (Normal) Comments: Non- GFR Calc CREAT,SERUM 0.56 mg/dL (Normal) Range: 0.55-1.02 Comments: The validity of the calculated GFR AND GFRAA in patients over70 years has not been determined. Clinical correlation isessential. 15-Skk-78339:18 CBC-Complete Blood Cnt No Diff Comments: [facility] [address] [place], [address] MPV 10.6 fL (Normal) Range: 6.2-12.0 PLT [...] 4.4-11.0 :18 CPK Total, Creatine Kinase Comments: [facility] [address] [place], [place], [address] CPK TOTAL 1718 U/L (Abnormal) Range: 26-192 06-Pbw-72625:18 Liver Profile Comments: [facility] [address] [place], [place], [address] D BILI 0.14 mg/dL (Normal) Range: 0.00-0.30 T BILI 0.60 mg/dL (Normal) Range: 0.20-1.00 ALT 58 U/L (Normal) Range: 12-78 ALK P 48 U/L (Normal) Range: 45-117 AST 60 U/L (Abnormal) Range: 15-37 GLOB 3.7 g/dL (Normal) Range: 2.2-4.2 ALB 3.5 g/dL (Normal) Range: 3.4-5.0 Comments: Please note revised Albumin AND Globulin reference rangeeffective 2017. T PROT 7.2 g/dL (Normal) Range: 6.4-8.2 62-Fgd-65791:18 Serum Creatinine AND GFR Comments: [facility] [address] [place], [place], [address] EST GFR - AA 175 mL/min (Normal) Comments: GFR Calc EST GFR 145 mL/min (Normal) Comments: Non- GFR Calc CREAT,SERUM 0.46 mg/dL (Abnormal) Range: 0.55-1.02 Comments: The validity of the calculated GFR AND GFRAA in patients over70 years has not been determined. Clinical correlation isessential. 60-Qge-731896:43 Basic Metabolic Profile (BMP) Comments: [facility] Xxpgzbpuvx5[address] [place], [address] GAP 9 (Normal) Range: 5-15 [...] 7-18 GLU 97 mg/dL (Normal) Range: 70-110 31-Hdp-762120:43 CBC W/Diff, Automated Comments: [facility] [address]lbhhhcmix[address] [place], [place], [address] OVALOCYTE RARE (Normal) MACROCYTE 1+ (Normal) PLT [...] 4.2-5.4 WBC 5.5 K/mm3 (Normal) Range: 4.4-11.0 72-Twq-584796:43 CPK Total, Creatine Kinase Comments: [facility] [address] [place] [address], [address] CPK TOTAL 1846 U/L (Abnormal) Range: 26-192 94-Uje-847378:43 Liver Profile Comments: [facility] [address] [place] [address], 2194[address] D BILI 0.17 mg/dL (Normal) Range: 0.00-0.30 T BILI 0.70 mg/dL (Normal) Range: 0.20-1.00 ALT 60 U/L (Normal) Range: 12-78 ALK P 55 U/L (Normal) Range: 45-117 AST 69 U/L (Abnormal) Range: 15-37 GLOB 3.4 g/dL (Normal) Range: 2.3-3.5 ALB 3.7 g/dL (Normal) Range: 3.4-5.0 T PROT 7.1 g/dL (Normal) Range: 6.4-8.2 55-Jwo-877357:26 Basic Metabolic Profile (BMP) Comments: [facility] [address]ockarby59[address]. [place], [place], [address] GAP 6 (Normal) Range: 5-15 CO2 27.0 [...] 7-18 GLU 96 mg/dL (Normal) Range: 70-110 25-Xnx-044411:26 CBC W/Diff, Automated Comments: [facility] [address] [place], [place], [address] Absolute Lymph 0.33 {X10_3/ul} (Abnormal) Range: 0.83-4.51 [...] 4.2-5.4 WBC 5.2 K/mm3 (Normal) Range: 4.4-11.0 79-Uco-020999:26 CPK Total, Creatine Kinase Comments: [address] [place], [place], [address] CPK TOTAL 1661 U/L (Abnormal) Range: 26-192 11-Iiu-767568:26 Liver Profile Comments: [address] [place], [place], [address] D BILI 0.12 mg/dL (Normal) Range: 0.00-0.30 T BILI 0.60 mg/dL (Normal) Range: 0.20-1.00 ALT 54 U/L (Normal) Range: 12-78 ALK P 50 U/L (Normal) Range: 45-117 AST 58 U/L (Abnormal) Range: 15-37 GLOB 3.9 g/dL (Abnormal) Range: 2.3-3.5 ALB 3.6 g/dL (Normal) Range: 3.4-5.0 T PROT 7.5 g/dL (Normal) Range: 6.4-8.2 3-Prz-008279:44 CBC W/Diff, Automated Comments: ADD TO 0503:X616WIL TO 0503:Q616Fwptzke[address]al[address]a Loomis [place], [place], [address] SMEAR COMMENT COMMENT (Normal) Comments: SLIDE SCANNED [...] 4.2-5.4 WBC 5.4 K/mm3 (Normal) Range: 4.4-11.0 2-Omm-184400:42 CPK Total, Creatine Comments: ADD CPK/BMP/RBTCDGB3-8-FWsbthefMetroHealth [facility] Yghgxngful0724 [facility], [place], [address] Kinase CPK TOTAL 1438 U/L (Abnormal) Range: 26-192 3-Bre-688865:42 CRP Comments: ADD CPK/BMP/HPIBUUV2-5-AIascfeoMetroHealth Main Campus Medical Center Ibfknindha4816 [facility] [place], [place], [address] C-REACTIVE PROT 4.67 mg/L (Abnormal) Range: 0.0-3.0 Comments: C-Reactive Protein (CRP) provides useful information for thediagnosis, therapy and monitoring of inflammatory processesand associated diseases. For the evaluation of Relative Riskfor Cardiovascular Dise ase, a High Sensitivity CRP (HSCRP)should be ordered. 0-Ggf-400216:42 Erythrocyte Sed Rate Comments: [facility] Zmwgoofjeq57[address] [place], [address] SED RATE 39 mm/h (Abnormal) Range: 0-30 4-Kjr-269271:42 Hepatitis ABC Profile Comments: [facility] (refer to report for specific site)refer to report for address and phone number COMMENT Comment (Normal) Comments: Non reactive HCV antibody screen is consistent with no HCVinfection, unless recent infection is suspected or otherevidence exists to indicate HCV infection.Performed at: - [facility] [id number] Director: Arsh Cuellar PhD, Phone: [phone] HCV Ab <0.1 {s/co_ratio} (Normal) Range: 0.0-0.9 Hep B Michael AB Reactive (Normal) Comments: Non Reactive: Inconsistent with immunity, less than 10 mIU/mL Reactive: Consistent with immunity, greater than 9.9 mIU/mL HEP B CORE,TOT Negative (Normal) HB CORE [id number] Negative (Normal) HB SURF AG Negative (Normal) HEP A AB,T.6726 Positive (Abnormal) HEP A IgM 6734 Negative (Normal) 10-Bdf-862107:35 Basic Metabolic Profile (BMP) Comments: [facility] Labwvdokju6[address] [place], [place], [address] GAP 7 (Normal) Range: 5-15 CO2 26.0 [...] 7-18 GLU 105 mg/dL (Normal) Range: 70-110 65-Ymj-808382:35 CBC W/Diff, Automated Comments: [facility] [address] [place], [place], [address] Absolute Lymph 0.28 {X10_3/ul} (Abnormal) Range: 0.83-4.51 [...] 4.2-5.4 WBC 5.3 K/mm3 (Normal) Range: 4.4-11.0 23-Wgy-127127:35 CPK Total, Creatine Kinase Comments: [facility] [address] [place], [place], [address] CPK TOTAL 2479 U/L (Abnormal) Range: 26-192 34-Qef-975649:35 Liver Profile Comments: [facility] S[address]acugcnm56[address] [place], [place], [address] D BILI 0.17 mg/dL (Normal) Range: 0.00-0.30 T BILI 0.90 mg/dL (Normal) Range: 0.20-1.00 ALT 105 U/L (Abnormal) Range: 12-78 ALK P 52 U/L (Normal) Range: 45-117 AST 102 U/L (Abnormal) Range: 15-37 GLOB 3.6 g/dL (Abnormal) Range: 2.3-3.5 ALB 3.5 g/dL (Normal) Range: 3.4-5.0 T PROT 7.1 g/dL (Normal) Range: 6.4-8.2 4-Hbg-929611:33 Basic Metabolic Profile (BMP) Comments: [facility] Elsocmbhkj05[address] [place], [place], [address] GAP 9 (Normal) Range: 5-15 CO2 27.0 [...] 7-18 GLU 94 mg/dL (Normal) Range: 70-110 8-Hcq-464027:33 CBC W/Diff, Automated Comments: [facility] Alhszlwqug6[address] [place], [address] ANISO 2+ (Normal) Absolute Lymph 0.32 {X10_3/ul} [...] 4.2-5.4 WBC 4.8 K/mm3 (Normal) Range: 4.4-11.0 2-Akm-435779:33 CPK Total, Creatine Kinase Comments: [facility] Wrixqtifws3079 [facility]. [place], [place], [address] CPK TOTAL 2987 U/L (Abnormal) Range: 26-192 8-Hmt-065543:33 Liver Profile Comments: [facility] Wv[address]zwkqzri[address] [facility] [address] [place], [place], [address] D BILI 0.09 mg/dL (Normal) Range: 0.00-0.30 T BILI 0.60 mg/dL (Normal) Range: 0.20-1.00 ALT 120 U/L (Abnormal) Range: 12-78 ALK P 62 U/L (Normal) Range: 45-117 AST 115 U/L (Abnormal) Range: 15-37 GLOB 3.6 g/dL (Abnormal) Range: 2.3-3.5 ALB 3.5 g/dL (Normal) Range: 3.4-5.0 T PROT 7.1 g/dL (Normal) Range: 6.4-8.2 85-Eut-432334:54 Basic Metabolic Profile (BMP) Comments: [facility] Kezkuetoii[address] [facility] [address] [place], [place], [address] GAP 11 (Normal) Range: 5-15 CO2 25.0 [...] 7-18 GLU 102 mg/dL (Normal) Range: 70-110 94-Icc-661176:54 CBC W/Diff, Automated Comments: [facility] [address] [place], [address] POIK RARE (Normal) PLT EST [...] 4.2-5.4 WBC 5.1 K/mm3 (Normal) Range: 4.4-11.0 40-Ucs-708099:54 CPK Total, Creatine Kinase Comments: [facility] [address] [place] [address], [address] CPK TOTAL 1840 U/L (Abnormal) Range: 26-192 11-Ijb-876990:54 Liver Profile Comments: [facility] [address] [place] [address], [address] D BILI 0.13 mg/dL (Normal) Range: 0.00-0.30 T BILI 0.50 mg/dL (Normal) Range: 0.20-1.00 ALT 70 U/L (Normal) Range: 12-78 ALK P 56 U/L (Normal) Range: 45-117 AST 76 U/L (Abnormal) Range: 15-37 GLOB 3.7 g/dL (Abnormal) Range: 2.3-3.5 ALB 3.5 g/dL (Normal) Range: 3.4-5.0 T PROT 7.2 g/dL (Normal) Range: 6.4-8.2 :55 TEMPORAL ARTERY BX See Note (Normal) Comments: [facility] [address] [place], [address] Comments: Patient: SYLVIA RAMIREZ : 1955 (60/F) Acct Num: [id number] Phys: Lyndon Saavedra MD Unit Num: [id number] Loc: [facility] Specimen: [id number] Received: 01/20/161813 Spec Type : TEMPORAL TISSUES TISSUES: COMMENT Elastic stain with matched control is used in the evaluation of the specimen. GROSS DESCRIPTION Received is one container labeled with the pat ient's name and designated left temporal artery. The specimen consists of a single elongated fragment of wiley tissue measuring 0.5 x <0.1 x <0.1 cm. The specimen is totally submitted in [facility] for post fixation serial sectioning. / AM:rickie 01/21/16 TC:5 CPT:27237, 28082 HEADER OPERATION: Left temporal artery biopsy PRE-OP [...] W/Diff, Automated Comments: Order Date: 01/10/16[facility] Date: [facility] Vvpvpljyvw[address] [place], [address] SMEAR COMMENT SCANNED (Normal) Absolute Lymph 0.26 [...] :05 CRP Comments: Order Date: 01/10/16Order Date: 01/10/16[facility] Purxceefne[address] [place], [place], [address] C-REACTIVE PROT 192.00 mg/L (Abnormal) Range: 0.0-3.0 Comments: C-Reactive Protein (CRP) provides useful information for thediagnosis, therapy and monitoring of inflammatory processesand associated diseases. For the evaluation of Relative Riskfor Cardiovascular Dise ase, a High Sensitivity CRP (HSCRP)should be ordered. :05 Erythrocyte Sed Rate Comments: Order Date: 01/10/16Order Date: 01/10/16[facility] Txalteiyne20[address] [place], [place], [address] SED RATE 79 mm/h (Abnormal) Range: 0-30 08-Ywg-667561:46 Basic Metabolic Profile (BMP) Comments: [facility] Esmyocuqbb90[address] [place], [address] GAP 3 (Abnormal) Range: 5-15 CO2 27.0 [...] <126 mg/dLsuggests IMPAIRED HOMEOSTASIS per A.D.A. criteria. 52-Ebn-897842:46 CBC W/Diff, Automated Comments: [facility] Xonkaoveqs[address] [place], [place], [address] ANISO 1+ (Normal) PLT EST ADEQUATE (Normal) [...] (Abnormal) WBC 5.1 K/mm3 (Normal) Range: 4.4-11.0 97-Jip-806506: NEUROMA - See Note (Normal) Comments: [facility] R[address]qvlipw7[address] [place], [address] 00 FOUNTAIN'S/TRAUMATIC Comments: Patient: SYLVIA RAMIREZ : 1955 (60/F) Acct Num: [id number] Phys: Stacie BEARDENAlbany Unit Num: [id number] Loc: [facility] Specimen: [id number] Received: 04/15/15 - 0755 Spec Type: N EUROMA TISSUES TISSUES: GROSS DESCRIPTION Received is one container labeled with the patient name and designated right third intermetatarsal space neuroma. The specimen consists of multiple pieces of wiley-yellow soft tissue measuring in aggregate 2.5 x 2 x 0.3 cm. The specimenis totally submitted in one cassette. 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 MICROSCOPIC DIAGNOSIS Soft tissue of right hand, third intermetatarsal space, excision: Consistent with neuroma. AM: 04/16/15 Signed Joel Quinn 04/16/15 <signature on file> : BREAST BIOPSY (CHOOSE See Note (Normal) Comments: [facility] [address]impdkao[address] [place], [address] 10 SITE) Comments: Patient: SYLVIA RAMIREZ : 1955 (59/F) Acct Num: [id number] Phys: Preeti HERRING,Jaxon Unit Num: [id number] Loc: [facility] Specimen: [id number] Received: 02/06/151614 Spec Type: BREAST BX TISSUES [...] one cassette. / AM: 02/07/15 TC:5 CPT: 67161 HEADER OPERATION: U/S guided core biopsy left [...] CHOL 213 mg/dL (Abnormal) Comments: <200 mg/dL Wnikdekyj681-868 mg/dL Borderline>240 mg/dL High Risk 71-Ijr-611223:03 PARATHORMONE (78040) Comments: PATIENT NOT FASTINGPERFORMED BY: Sputnik8 [facility] Bcmphi[address] [employer] Be[place] SystemsDuin [place] [id number] Information: F90419,2ND ORDER NO DRAW F EE PTH, Intact 23 pg/mL (Normal) Range: 15-65 19-Osm-650096:02 TSH (THYROID STIMULATING Comments: PATIENT NOT FASTINGPERFORMED BY: [facility] Nnuxxl0479 [address] RoadDublin [place] [id number] HORMONE) (11175) TSH 0.733 {uIU/mL} (Normal) Range: 0.450-4.500 30-Sfw-369632:02 CALCIFEDIOL (83849) Comments: PATIENT NOT FASTINGPERFORMED BY: Sputnik8 [facility] Prsdic5930 Torres RoadDublin [place] [id number] Vitamin D, 25-Hydroxy 28.9 ng/mL (Abnormal) Range: 30.0-100.0 Comments: Vitamin D deficiency has been defined by the Edwards [facility] and an Endocrine Society practice guideline as alevel of serum 25-OH vitamin D less than 20 ng/mL (1,2).The Endocrine Society went on to further define vitamin Dinsufficiency as a level between 21 and 29 ng/mL (2).1. IOM (Edwards of Medicine). 2010. Dietary reference intakes for calcium and D. [place]: The National Academies Press.2. Fernie MF, Saida OOCNNOR, Esdras JIMENEZ, et al. Evaluation, treatment, and prevention of vitamin D deficiency: an Endocrine Society clinical practice guideline. JCEM. 2010; 96(7):1911-30. 63-Fwl-142133:02 METABOLIC PANEL, Comments: PATIENT NOT FASTINGPERFORMED BY: STEPH [facility] [id number] [facility] [id number] Information: [id number] RUST ([id number]) ALT (SGPT) 77 [iU]/L (Abnormal) Range: 0-32 [...] Glucose, Serum 110 mg/dL (Abnormal) Range: 65-99 [id number] CBCD Comments: NO CHARGE REDRAW ANC 7.5 [...] 4.2-5.4 WBC 8.6 K/mm3 (Normal) Range: 4.4-11.0 [id number] SED Comments: NO CHARGE REDRAW tSEDRATE 20 mm/h (Normal) Range: 0-30 45-Zah-[id number]:42 Urinalysis, Office (24069) UA - LEUKOCYTE ESTERASE Negative (Normal) UA - NITRITE Negative (Normal) URINE UROBILINGN MARIE TIMED Normal mg/dL (Normal) UA - PROTEIN Negative mg/dL (Normal) UA - PH 7 (Normal) UA - BLOOD Negative (Normal) UA - SPECIFIC GRAVITY 1.020 (Normal) UA - KETONES Small mg/dL (Normal) UA - BILIRUBIN Negative (Normal) UA - GLUCOSE Negative (Normal) [id number] Systemic Lupus Profile Comments: PATIENT NOT FASTINGPERFORMED BY: [id number] [id number] Information: [id number] ([id number]) Anti-DNA (DS) Ab Qn 3 {IU/mL} (Normal) Range: 0-9 Comments: Negative <5 Equivocal 5 - 9 Positive >9 Sjogren's Anti-SS-B 0.2 {AI} (Normal) Range: 0.0-0.9 Sjogren's Anti-SS-A <0.2 {AI} (Normal) Range: 0.0-0.9 Antichromatin Antibodies <0.2 {AI} (Normal) Range: 0.0-0.9 RA Latex Turbid. 8.4 {IU/mL} (Normal) Range: 0.0-13.9 Iraheta Antibodies <0.2 {AI} (Normal) Range: 0.0-0.9 COMBINATION SAW OPERATOR Antibodies <0.2 {AI} (Normal) Range: 0.0-0.9 [id number]:05 HAND MIN 3 VIEWS Radiology Report See [...] Signed:Tobin Sawant M.D.November 25 at 2:42:01 PM [id number] Signed GP/GP If you are the referring physician and would like to consult with theradiologist who provided this interpretation, please contact Amber calixto M.D. at [phone]. If this radiologist is unavailable, youwill be directed to another radiologist to assist. If you are a patient with a question regarding this report, pleasecontactyour referr ing physician directly. Professional Interpretation Provided By: [employer], Phone , These documents contain legally protected and confidential healthinformation intended only for the use of the individual or entity namedabnika. If you are not the intended recipient, [...] 11/25/12 1454 Sign by: Tobin Sawant MD 3-Wdp-953589:04 HAND MIN 3 VIEWS Radiology Report See [...] swelling. Signed:Tobin Sawant M.D.November at 2:42:30 PM [id number] Signed GP/GP If you are the referring physician and would like to consult with theradiologist who provided this interpretation, please contact Tobin Sawant M.D. at [phone]. If this radiologist is unavailable, youwill be directed to another radiologist to assist. If you are a patient with a question regarding this report, pleasecontactyour daniel fry physician directly. Professional Interpretation Provided By: Jonathan Phone , These documents contain legally protected [...] 11/25/12 1442 by Judy harden MD,Ruranscribed on 11/25/123 by ITS IMPORTSign by Loly HERRING,Tobin on 11/25/12 1454 Sign by: Tobin Sawant MD 4-Qkw-557244:04 WRIST MIN 3 VIEWS Radiology See Note [...] Sawant M.D.November 25, 2012 at 2:43:33 PM [id number] Signed GP/GP If you are the referring physician and would like to co nsult with theradiologist who provided this interpretation, please contact Jaz Falk at [phone]. If this radiologist is unavailable, youwill be directed to another radiologist to nan . If you are a patient with a question regarding this report, pleasecontactyour referring physician directly. Professional Interpretation Provided By: [employer], Phone ,Fax These documents contain legally protected [...] destructionofthese documents. Dictated on 11/25/12 1443 by Loly HERRING,Verascribed on 11/25/12 1455 by ITS IMPORTSign by Tobin Sawant MD on 11/25/12 1456 Sign by: Tobin Sawant MD 8-Icf-729661:04 WRIST MIN 3 VIEWS Radiology See Note [...] Sawant M.D.November 25, 2012 at 2:42:31 PM [id number] Signed GP/GP If you are the referring physician and would like to con sult with theradiologist who provided this interpretation, please contact Jaz Falk at [phone]. If this radiologist is unavailable, youwill be directed to another radiologist to ed slaughter. If you are a patient with a question regarding this report, pleasecontactyour referring physician directly. Professional Interpretation Provided By: [employer], Phone , These documents contain legally protected [...] 11/25/12 1457 Sign by: Tobin Sawant MD 4-Zge-625547:50 CCP ANTIBODY (45617) Comments: PATIENT NOT FASTINGPERFORMED BY: c8apps Pxktyg75[address] [facility] [id number] BY: [employer] [id number] CCP Antibodies IgG/IgA 21 {units} (Abnormal) Range: 0-19 Comments: Negative <20 Weak positive 20 - 39 Moderate positive 40 - 59 Strong positive >59 3-Zox-312360:50 SED RATE ERYTHROCYTE Comments: PATIENT NOT FASTINGPERFORMED BY: c8apps Tijazt1602 [facility] [id number] BY: [employer] [id number] ([id number]) Sedimentation Rate-Westergren 2 mm/h (Normal) Range: 0-40 :50 C-REACTIVE PROTEIN (64745) Comments: PATIENT NOT FASTINGPERFORMED BY: LabDavid [facility]ille [id number] [facility] [id number] BY: [address] [id number] C-Reactive Protein, Quant 1.6 mg/L (Normal) Range: 0.0-4.9 :50 TSH (57064) Comments: PATIENT NOT FASTINGPERFORMED BY: [place] [id number] [facility] [id number] BY: [address] [id number] TSH 1.410 {uIU/mL} (Normal) Range: 0.450-4.500 8-Xnb-583914:50 RHEUMATOID FACTOR-QUANT Comments: PATIENT NOT FASTINGPERFORMED BY: [address] [id number] BY: [address] [id number] ([id number]) RA Latex Turbid. 5.4 {IU/mL} (Normal) Range: 0.0-13.9 :50 PATRICK (ANTINUCLEAR ANTIBODY) Comments: PATIENT NOT FASTINGPERFORMED BY: [place] [id number] [facility] [id number] BY: [address] [id number] ([id number]) PATRICK Direct Positive (Abnormal) :50 CBC WITH MANUAL DIFF Comments: PATIENT NOT FASTINGPERFORMED BY: [place] [id number] [facility] [id number] BY: [address] [id number] Inf ormation: [id number] ([id number]) Immature Grans (Abs) 0.0 {x10E3/uL} (Normal) Range: [...] 3.77-5.28 WBC 4.7 {x10E3/uL} (Normal) Range: 4.0-10.5 5-Ygv-270068:50 METABOLIC PANEL, Comments: PATIENT NOT FASTINGPERFORMED BY: CB [facility] Jfnmef2401 [facility] [id number] BY: BN [facility] Pfkgrjzbys0238 [facility] [id number] RUST (59954) ALT (SGPT) 22 [iU]/L (Normal) Range: 0-32 [...] Glucose, Serum 93 mg/dL (Normal) Range: 65-99 73-End-24752:49 LIPID,HEALTHPNT VLDL 14 mg/dL (Normal) Range: 5-40 [...] PANEL, COMPREHENSIVE Comments: PATIENT WAS FASTINGPERFORMED BY: [facility] Zftqid3206 [facility] [id number] (35730) ALT (SGPT) 20 [iU]/L (Normal) Range: 0-40 [...] MANUAL DIFF Comments: PATIENT WAS FASTINGPERFORMED BY: [facility] [id number] Information: [id number] (31376) Baso (Absolute) 0.0 {x10E3/uL} (Normal) Range: 0.0-0.2 [...] {x10E3/uL} (Abnormal) Range: 4.0-10.5 :18 LIPID PANEL (09380) Comments: PATIENT WAS FASTINGPERFORMED BY: [facility]CoNew [facility] CenterQfpnya7187 [facility] [id number] LDL Cholesterol Calc 128 mg/dL (Abnormal) Range: [...] Report See Note (Normal) Comments: Exam Number: [id number] UNILATERAL LEFT RIBS Several views of the [...] Report See Note (Normal) Comments: Exam Number: [id number] DORSAL SPINE AP and lateral views were obtained. HISTORYThimoises is a 54-year-old female patient with history [...] unspecified laterality Planned Observations METABOLIC PANEL, COMPREHENSIVE (56106)Indication: Hyperlipidemia, mild On: :49 Request LIPOPROTEIN, BLD, BY NMR (79182)Indication: Hyperlipidemia, mild On: :49 Request HEPATIC FUNCTION PANEL (66716)Indication: Hyperlipidemia, mild On: :28 Request LIPOPROTEIN, BLD, BY NMR (85279)Indication: Hyperlipidemia, mild On: : Request CBC, Platelets & Auto Diff (18182)Indication: Headache, occipital On: :26 Request Comments: all labs stat C-Reactive Protein (88551)Indication: Headache, occipital On: : Request Sed Rate Erythrocyte (21514)Indication: Headache, occipital On: : Request Sed Rate Erythrocyte (05058)Indication: Headache, occipital On: :09 Request LIPID PANEL (78661)Indication: Osteoarthrosis, not specified whether generalized/localized, lower leg On: 3-Slf-387708:11 Request Parathyroid Hormone-related Peptide (PTH-rP) (71232)Indication: Abnormal blood chemistry On: 42-Whp-500792:02 Request METABOLIC PANEL, COMPREHENSIVE (40446)Indication: Swelling On: :15 Request Comments: Add to standing order to be done today CPK TOTAL & ISOENZYMES (83170)Indication: Elevated CPK On: 19-Jou-029424:14 Request Comments: repeat today add to standing labs C-Reactive Protein (09883)Indication: Elevated CPK On: 32-Puh-906938:14 Request Comments: include with standing labs today TSH (96297)Indication: Swelling On: 57-Bth-303177:12 Request Comments: Add to current standing order for today only Print this for pt MICROALBUMIN URINE QUANT (70298)Indication: Swelling On: 45-Rql-033701:43 Request MICROALBUMIN: CREATININE RATIO (01168) AND (73769)Indication: Swelling On: 66-Fmc-144566:43 Request EXTRCTBL NUCLR ANTGEN EA (59255) test code 465091Xzaxuqrtnc: Abnormal blood chemistry On: : Request ANTI-Sm (ANTI IRAHETA ANTIBODY) (93949) test code 235649Pozvjvkuwo: Abnormal blood chemistry On: : Request ANTI-COMBINATION SAW OPERATOR (ANTI RIBONUCLEAR PROTEIN ANTIBODY) (26462) test code 405262Bucjtsmtur: Abnormal blood chemistry On: : Request DNA ANTIBODY-NATV/DBL ST (83954) test code 454052Junzguixch: Abnormal blood chemistry On: : Request URINALYSIS (56322)Indication: Malignant neoplasm of breast (female) On: :27 Request CBC (Auto) (26355)Indication: Malignant neoplasm of breast (female) On: : Request Metabolic Panel, Comprehensive (77369)Indication: Malignant neoplasm of breast (female) On: :22 Request Planned Procedures MAMMOGRAM BREAST BILATERAL On: 21-Mar-2018 Intent SCREENING DIGITAL (30880)By: Dahiana HERRING, Lorena Hopson MD INJECTION, PROLIA (J0897)By: Visit, On: 24-Feb-2018 Intent Nurse Comments: [id number]/20prefilled syringer arm, SCMLONG Bone Density StudyBy: Dahiana HERRING, On: 01-Feb-2018 Intent Lorena Hopson MD Comments: due after 03-10-18 INJECTION, PROLIA (J0897)By: On: 14-Jul-2017 Intent Lorena Talbot MD, MD, Dana Comments: lot: [id number]: 09/2019site/route: R arm/SQamt: prefilled syringeVIS signed when applicableBLU Waters INJECTION, PROLIA (J0897)By: On: 17-Dec-2016 Intent Lorena Talbot MD, MD, Dana Comments: Lot:[id number]:02/11Dose:60mlRoute:sub q Site:r armGiven By:JKMVIS signed M Radiology - ChestBy: Dahiana HERRING, On: 02-Jul-2016 Intent Lorena Hopson MD Comments: recheck approx. 4 weeks check before 08-03-16 follow up Radiology - Chest- PA and LatBy: On: 02-Jul-2016 Intent Lorena Talbot MD, MD, Dana M Inhaler Demo (55962)By: Dahiana HERRING, On: 02-Jul-2016 Intent Lorena Hopson MD Aerosol Treatment (04937)By: On: 02-Jul-2016 Intent Lorena Talbot MD, MD, Dana M INJECTION, PROLIA (J0897)By: On: 12-Jun-2016 Intent Lorena Talbot MD, MD, Dana Comments: lot: [id number]: 08/12site/route: R arm/SQamt: prefilled syringe 60mgVIS signed when applicableBLU Waters LE Arterial Exam - LowerBy: Dahiana On: 02-Apr-2016 Intent Lorena HERRING MD, Dana M Aerosol Treatment (08227)By: Dewayne On: 04-Mar-2015 Intent Pat GARCIA RIGHT MAMMOGRAM (16414)By: Dewayne On: 04-Mar-2015 Pat Patel CNP Breast Ultrasound - LeftBy: Dewayne On: 01-Jan-2015 Intent Pat GARCIA Comments: call results to Nabil at [facility] LEFT MAMMOGRAM (60056)By: Dewayne On: 01-Jan-2015 Intent Pat GARCIA Comments: call Agus Buchanan at [facility] with results Bone Density StudyBy: Dahiana HERRING, On: 31-Jan-2014 Intent Lorena Hopson MD BILATERAL MAMMOGRAMS (59061)By: On: 31-Jan-2014 Intent Lorena Talbot MD, MD, Dana M Kenalog Injection, 10 mgm On: 05-Dec-2013 Intent (J3301)By: Lorena Talbot MD Comments: lot: [id number]: 04/09site/route: L and R knee/joint injamt: 1cc in each kneeVIS signed when applicablex8 Lorena Talbot MD Echo CompleteBy: Dewayne GARCIA Pat Dowling On: 11-Aug-2013 Intent Eprescribed prescriptions On: 11-Aug-2013 Intent (G8553)By: Dewayne GARCIA Asuncion Eprescribed prescriptions On: 18-Jul-2013 Intent (G8553)By: Lorena Talbot MD, MD, Lorena Lewis Eprescribed prescriptions On: 08-Jun-2013 Intent (G8553)By: Becky Bryan DO Wax CurettesBy: Becky Bryan DO On: 08-Jun-2013 Intent Ear Irrigation (51455)By: Randi On: 08-Jun-2013 Intent Becky THOMAS Comments: small amt came out of both ears but still thin film on rim Radiology - Wrist - BilateralBy: On: 25-Nov-2012 Intent Becky Bryan DO Radiology - Hand - BilateralBy: On: 25-Nov-2012 Intent Becky Bryan DO IMMUNIZATION ADMIN (12072)By: On: 04-May-2012 Intent Katerina Broderick Comments: Lot:[id number]:07-30-13Dose:prefilledRoute:IMSite:R armGiven By:JKMKAYE COMPLETE ON THIS DATE IMMUNIZATION ADMIN (05761)By: On: 09-Jun-2011 Intent Eneida Beth Comments: Lot:[id number]:01/30/13Amt:prefilledRoute:IMSite:right deltGiven By: KENNEDY Greene IMMUNIZATION ADMIN (63193)By: On: 11-May-2011 Intent Shavon Bunch LPN Comments: Lot #[id number]-19/1/13Site-right deltoidgiven by: Jeffrey Bunch LPN TDAP VACCINE >7 IM (15631)By: On: 04-May-2011 Intent Dahiana HERRING, Lorena Hopson MD IMMUNIZATION ADMIN (59431)By: On: 04-May-2011 Intent Lorena Talbot MD, MD, Lorena Lewis Kenalog Injection, 10 mgm On: 27-Jun-2010 Intent (J3301)By: BoneLorena burroughs MD, MD, Dana M Kenalog Injection, 10 mgm On: 27-Jun-2010 Intent (J3301)By: Lorena Talbot MD, MD, Dana M DXA, BONE DENSITY, AXIAL SKELETON On: 14-Nov-2009 Intent (30638)By: Lorena Talbot MD Comments: estrogen def, medication high risk Lorena Talbot MD Venous Doppler - LeftBy: Dahiana On: 25-Sep-2009 Intent Lorena HERRING MD, Dana M Comments: lower Xvbvhyqre-Nmg-Tybp (95352)By: On: 31-May-2009 Intent Lorena Talbot MD, MD, Dana Comments: pain along rib M Radiology - Thoracic SpineBy: On: 31-May-2009 Intent Lorena Talbot MD, MD, Dana M PHYSICAL THERAPY EVALUATION On: 03-Apr-2008 Intent (54872)By: Dewayne GARCIA, Asuncion Radiology - ChestBy: Cimark TABLE GAMES MANAGER, On: 03-Apr-2008 Intent Asuncion Kenalog Injection, 10 [...] Indication: Cerumen impaction Encounters Office Visit On: 25-Mar-2018 10:33 Encounter Diagnosis: [...] for Follow up acute care visit: In [place] and noted left arm red streak from [...] will be leaving wednesday for [facility]. had sinusitis month ag [...] (left). Note for Calf pain: drove to [place] and at [employer]. wearing fit flops. in 08-03 left knee injury and better now.Encounter Diagnosis: [...] incident not at work (working out at [employer]) and has been occurring in an intermittent [...] Osteoarthritis (715.96), Sleep disorder (780.50), Obesity,unspecified (278.00), [facility] Comprehensive Internal Medicine Office Visit [...] and type alot and also restart at curvesEncounter Diagnosis: Parasthesia (782.0) Comprehensive Internal Medicine Office [...]
--- OUTSIDE RECORDS SUMMARY | 2018-05-19 10:14 | XMS RPT_ITS ---
:1955 Author Organization [facility] Care Team Providers Name Role Phone DOCTOR, OUT OF TOWN Attending Unavailable Bonezzi, Levar Primary Care Unavailable DOCTOR, OUT OF TOWN Attending Unavailable RODRIGO LUJAN Referring Unavailable Bonezzi, Levar Primary Care Unavailable Robert Garza Attending Unavailable Bonezzi, Levar Primary Care Unavailable Robert Garza Attending Unavailable Bonezzi, Levar Primary Care Unavailable RODRIGO LUJAN Attending Unavailable Bonezzi, Levar Primary Care Unavailable RODRIGO LUJAN Referring Unavailable Robert Garza Attending Unavailable Robert Garza Referring Unavailable Bonezzi, Levar Primary Care Unavailable Robert Garza Attending Unavailable DesanRobert Referring Unavailable Bonezzi, Levar Primary Care Unavailable Bonezzi, Levar Primary Care Unavailable ParikhDaovno Attending Unavailable Robert Garza Attending Unavailable DesanRobert Referring Unavailable Bonezzi, Levar Primary Care Unavailable Bonezzi, Levar Attending Unavailable Bonezzi, Levar Referring Unavailable Bonezzi, Levar Primary Care Unavailable ANTONIO VANG Attending Unavailable BONEZZI, LEVAR VIRGINIE Referring Unavailable ANTONIO VANG Referring Unavailable ANTONIO VANG Admitting Unavailable ANTONIO VANG Attending Unavailable ANTONIO VANG Attending Unavailable ANTONIO VANG Referring Unavailable ANTONIO VANG Attending Unavailable ANTONIO VANG Attending Unavailable ANTONIO VANG Referring Unavailable ROBERT NESBITT () Attending Unavailable ROBERT NESBITT () Referring Unavailable NESBITTROBERT () Attending Unavailable ROBERT NESBITT () Referring Unavailable NESBITTROBERT ZAIDI () Attending Unavailable NESBITTROBERT ZAIDI () Referring Unavailable Bonezzi Levar HERRING Attending Unavailable Bonezzi Levar HERRING Referring Unavailable Bonezzi Levar HERRING Consulting Unavailable Cain VANG Attending Unavailable BONEZZI, LEVAR Referring Unavailable BONEZZI, LEVAR Primary Care Unavailable Cain VANG Attending Unavailable Cain VANG P Referring Unavailable BONEZZI, LEVAR Primary Care Unavailable Cain VANG P Attending Unavailable Cain VANG P Referring Unavailable BONEZZI, LEVAR Primary Care Unavailable IMCA Referring Unavailable Cain VANG P Attending Unavailable BONEZZI, LEVAR Primary Care Unavailable IMCA Referring Unavailable Cain VANG P Attending Unavailable BONEZZI, LEVAR Primary Care Unavailable Adela VANG.Agus HAGER P Referring Unavailable Cain VANG P Attending Unavailable BONEZZI, LEVAR Primary Care Unavailable Cain VANG P Admitting Unavailable aCin VANG P Attending Unavailable BONEZZI, LEVAR Primary Care Unavailable Cain VANG P Referring Unavailable BONEZZI, LEVAR Primary Care Unavailable Cain VANG Referring Unavailable Cain VANG Attending Unavailable LEVAR EUBANKS Primary Care Unavailable Cain VANG Attending Unavailable LEVAR EUBANKS Referring Unavailable LEVAR EUBANKS Primary Care Unavailable Purpose Purpose PROBLEMS PROBLEMS DATE TYPE CONDITION / CODE ATTENDING STATUS SOURCE 03/14/2018 Unknown Z79.899 - Other long Robert Garza Active [facility] term (current) drug Community therapy / Hospital Z79.899(ICD-10) Repository 03/14/2018 Unknown D89.89 - Other Robert Garza Active [facility] specified disorders Community involving the immune Hospital mechanism, not Repository elsewhere classified / D89.89(ICD-10) 03/22/2017 Unknown 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, 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[facility] INJURED IN [facility] Community W PED/ANML * DO NOT Hospital USE * / Repository V70.5(ICD-10) 01/26/2018 Active Other specified Jonnathan VANG postprocedural [facility] Other states / [place] Z98.890(ICD-10) Repository 01/17/2018 Active Primary JAMIE Active [place] osteoarthritis, [facility] Other right ankle and foot [place] / M19.071(ICD-10) Repository 01/17/2018 Active Hallux varus JAMIE Active [place] (acquired), right [facility] Other foot / [place] M20.31(ICD-10) Repository 01/17/2018 Admitting Unknown / JAMIE Active [facility] diagnosis ALBERT(Unknown) Cain [facility] P Repository 01/05/2018 Active Encounter for other NA Active [facility] preprocedural [facility] Other examination / [place] Z01.818(ICD-10) Repository 12/28/2017 Active Unknown / ROBERT NESBITT Active [place] UNK(Unknown) () Clinic Main [place] Repository 11/30/2017 Unknown R10.11 - Right upper Parikh, Bladimir Active [facility] quadrant pain / Community R10.11(ICD-10) Hospital Repository 09/16/2017 Active ArthropathyJAMIE Active [place] unspecified / [facility] Other M12.9(ICD-10) [place] Repository 09/13/2017 Unknown D72.819 - Decreased Robert Garza Active [facility] white blood cell Community count, unspecified / Hospital D72.819(ICD-10) Repository PROCEDURES PROCEDURES No Procedure Records FoundVITAL SIGNS VITAL SIGNS No Vital Signs Records FoundRESULTS RESULTS SCREENING MAMM (CAD), Observed: 03/24/2018 Status: F Source: [facility] 9:21 AM [facility] REPOSITORY [facility] Imaging Services [address] [place] [address] SCREENING MAMM (CAD), BILAT MR#: [id number] Acct: [id number] Name: SYLVIA RAMIREZ Rep #: [id number] : 1955 F 63 From: Tobin Salcido MD PCP: Levar Eubanks MD Status: REG CLI Study: SCREENING MAMM (CAD), BILAT Date of Exam: 03/24/18 Exam# [id number] Ordering Dr: eLvar Eubanks MD MAMMOGRAPHY - BILATERAL SCREENING REASON FOR EXAM: Female, 63 years old. Routine annual screening examination. PERTINENT HISTORY: Personal history of breast cancer. Prior left lumpectomy with radiation therapy. Sr. With breast cancer. Mother with [...] the left breast in keeping with prior lumpectomy and radiation therapy. Stable postoperative scarring and focal calcification. A tissue clip marker is seen in the deep slightly lateral portion of the left breast. Stable skin thickening of the left breast. No other significant abnormalities are identified. There has been no significant change since the prior study. BI/SCREENING MAMM (CAD), BILAT IMPRESSION: Stable bilateral screening mammogram. Yearly follow-up mammogram recommended. (A) ASSESSMENT CATEGORY: BIRADS Category 2: Benign. A letter regarding these results will be sent to the patient by the facility within 30 days. Approximately 10% of breast cancers are not detected by mammography. A normal mammogram should not delay biopsy of a clinically suspicious abnormality. [id number] Electronically Signed: Tobin Salcido MD at 11:21 EST Tel [phone], Service support , CC: Levar Eubanks MD Fur Drummer: Signed DEXA BONE DENSITY Observed: 03/24/2018 Status: F Source: [facility] 9:21 AM [facility] REPOSITORY [facility] Imaging Services [address] [place] [address] Dexa Bone Density Study MR#: [id number] Acct: [id number] Name: SYLVIA RAMIREZ Rep #: [id number] : 1955 F 63 From: Tobin Salcido MD PCP: Levar Eubanks MD Status: REG CLI Study: Dexa Bone Density Study Date of Exam: 03/24/18 Exam# [id number] Ordering Dr: Levar Eubanks MD STUDY: DUAL ENERGY X-RAY ABSORPTIOMETRY / DXA REASON FOR EXAM: Female, 63 years old. The patient is postmenopausal. Loss of height. TECHNIQUE: Bone Mineral Density (BMD) measurements of lumbar spine and bilateral hips were obtained. COMPARISON: Comparison is made with prior study dated March 10, 2016. FINDINGS: Lumbar Spine (L1-L4): g/cm2 (1.214) / T-score (0.4) / Z-score (1.8) Findings are suggestive of normal bone density with a low fracture risk. Left Femur Total: g/cm2 (0.788) / T-score (-1.7) / Z- score (-0.7) Left Femoral Neck: g/cm2 (0.727) / T-score (-2.2) / Z- score (-0.9) Right Femur Total: g/cm2 (0.791) / T-score (-1.7) / Z- score (-0.6) Right Femoral Neck: g/cm2 (0.728) / T-score (-2.2) / Z-score (0.9) The T-Scores on the most recent prior examination were: Lumbar Spine (L1-L4): There has been improvement of bone density since the previous examination. Left Femur Total: which represents an improvement of 2.1%. Right Femur Total: which represents an improvement of 0.8%. BD/Dexa Bone Density Study [...] Health Organization (WHO) interprets the T-scores as follows: Above -1 Normal bone [...] would be considered abnormal. References: 1. NIH Osteoporosis and Related Bone Diseases http://www.osteo.org 2. International Society for Clinical Densitometry http://www.iscd.org 3. National Osteoporosis Foundation http://www.nof.org Electronically Signed: Tobin Salcido MD at 12:33 EST Tel [phone], Service support , CC: Levar Eubanks MD Fur Drummer: Signed CBC W/DIFF, AUTOMATED Collected: 03/14/2018 Status: F Source: [place] 1:49 PM [facility] REPOSITORY TYPE CODE TESTS RESULT OUT OF RANGE REFERENCE UNITS LAB L100.1000 4.4-11.0 K/mm3 Normal WBC 6.0 LAB L100.1200 4.2-5.4 M/mm3 Low RBC 3.93 LAB L100.1300 12.0-15.0 g/dl Normal HGB 13.5 LAB L100.1400 37-47 % Normal HCT 41.1 LAB L100.1500 81-99 fL High MCV 104.6 LAB L100.1600 27.0-32.0 pg High MCH 34.4 LAB L100.1700 32-36 g/gl Normal MCHC 32.8 LAB L100.1810 11.6-14.6 % High RDW CV 15.6 LAB L100.1820 35.1-43.9 fl High RDW SD 58.5 LAB L100.1900 150-450 K/mm3 Normal PLT 255 LAB L100.2000 6.2-12.0 fl Normal MPV 9.9 LAB L100.2100 47-70 % High NEUT% 91.6 LAB L100.2200 19-41 % Low LY% 4.8 LAB L100.2300 0-10 % Normal MONO% 2.3 LAB L100.2400 0-5 % Normal EO% 1.0 LAB L100.2500 0-1 % Normal BASO% 0.3 LAB L100.2550 0.0-0.9 % Normal IM GRAN % 0.000 Result Comment: IG% - Immature Granulocytes (promyelocytes, myelocytes and metamyelocytes) > 1% indicates that a LEFT SHIFT is Present. LAB L100.2620 2.0-7.7 X10 3/uL Normal Absolute Neut 5.5 LAB L100.2720 0.83-4.51 X10 3/ul Low Absolute Lymph 0.29 LAB L100.4500 SMEAR Normal COMMENT Result Comment: LYMPHOPENIA NOTED Performed By: #### L100.0100 #### [facility] [address] [place], [address] LIVER PROFILE Collected: 03/14/2018 Status: F Source: [place] 1:49 PM [facility] REPOSITORY TYPE CODE TESTS RESULT OUT OF RANGE REFERENCE UNITS LAB L501.1500 6.4-8.2 g/dL Normal T PROT 7.3 LAB L501.1800 3.2-5.0 g/dL Normal ALB 3.6 LAB L501.1950 2.2-4.2 g/dL Normal GLOB 3.7 LAB L501.4100 15-37 U/L High AST 76 LAB L501.4305 45-117 U/L Normal ALK P 61 LAB L501.4405 13-56 U/L High ALT 92 LAB L501.4600 0.20-1.00 mg/dL Normal T BILI 0.60 LAB L501.4700 0.00-0.30 mg/dL Normal D BILI 0.14 Performed By: #### L500.3400, L501.1105, L501.3620 #### [facility] [address] [place], [place], [address] SERUM CREATININE AND Collected: 03/14/2018 Status: F Source: [place] GFR 1:49 PM [facility] REPOSITORY TYPE CODE TESTS RESULT OUT OF RANGE REFERENCE UNITS LAB L501.1100 0.55-1.02 mg/dL Normal 0.57 CREAT,SERUM Result Comment: The validity of the calculated GFR AND GFRAA in patients over 70 years has not been determined. Clinical correlation is essential. LAB L501.1110 >60 mL/min Normal EST GFR 113 Result Comment: Non- GFR Calc LAB L501.1115 >60 mL/min Normal EST GFR - AA 137 Result Comment: GFR Calc Performed By: #### L500.3400, L501.1105, L501.3620 #### [facility] [address] [place], [address] CPK TOTAL, CREATINE Collected: 03/14/2018 Status: F Source: [place] KINASE 1:49 PM [facility] REPOSITORY TYPE CODE TESTS RESULT OUT OF RANGE REFERENCE UNITS LAB L501.3620 26-192 U/L High CPK TOTAL 195 Performed By: #### L500.3400, L501.1105, L501.3620 #### [facility] [address] [place], [address] PROGRESS Observed: 03/05/2018 Status: COMPLETED Source: [facility] 8:02 PM CLINIC OTHER CAMPUS REPOSITORY HNO ID: [id number] Author: Antonio Vang Service: (none) Author Type: Physician Type: Progress Notes Filed: 03/05/2018 8:08 PM Note Text: DOS: 01/17/18 POD: 17 POV: 2 Procedure: 1st MTPJ arthrodesis, abductor hallucis tenotomy, right foot This 62 year old female presents for a post op visit. Patient states they are doing well. Pain is well controlled. Has been icing and elevating the extremity as instructed preoperatively and has been partial weightbearing to the right lower extremity with CAM boot. Denies any current nausea, vomiting, fever, chills, shortness of breath, chest pain or calf pain. Has been taking nothing for DVT prophylaxis. 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 OMEPRAZOLE ORAL Take 20 mg by mouth. predniSONE (DELTASONE) 1 mg tablet Take 4mg/day traMADol (ULTRAM) 50 mg tablet Take 1 tablet by mouth once daily as needed. BiotaGen capsules (Klaire/Prothera) 4 capsules once daily Glutathione (SpoonRocket) 8 pumps twice daily Magnesium Citrate 150mg 90 ct. (Pure Encapsulations) Take 3 capsules daily at night B-Complex Plus (Pure Encapsulations) Take 1 capsule by mouth daily with food. CurcumaSorb (Pure Encapsulations) 2?-3 capsules daily between meals LACTOBACILLUS COMBINATION NO.8 (ADULT PROBIOTIC ORAL) Take by mouth. ACETAMINOPHEN/DIPHENHYDRAMINE (TYLENOL PM ORAL) Take 1 tablet by mouth daily at bedtime. Diclofenac Sodium (VOLTAREN) 1 % gel Apply moderate amount to painful areas on hands (2g) up to four times daily as needed. Don't exceed a total of 32g daily. turmeric root extract 500 mg cap Take by mouth once daily. Cholecalciferol, Vitamin D3, (VITAMIN D) 1,000 unit ORAL Tab Take one(1) tablet daily. omega-3 fatty acids 1,000 mg ORAL Cap Take one(1) capsule daily. No current facility-administered medications for this visit. ALLERGIES No Known Allergies Objective: Patient presents partial weightbearing to right leg. Dressing is dry, clean, and intact. Problem focus examination to the right lower extremity: Incision site is well coapted without evidence of dehiscence. No erythema and mild edema surrounding surgical site. No drainage. No lymphadenopathy. No lymphangitis. No surrounding cellulitis. No signs of infection. Patient has no pain to palpation of calf. The calf is soft, supple and nontender without evidence of DVT. Negative Jose David's test. Satisfactory alignment is noted. Pedal pulses are palpable. Capillary refill time is less than three seconds to all digits. Sensations are intact to light touch. Radiographs: 3 views right foot obtained 02/03/18. Anatomic alignment of 1st metatarsal phalangeal joint with hardware intact. No evidence of lucency or backing out. No signs of acute fracture or bony degeneration. Assessment: Satisfactory post-operative progress Plan: The patient was educated on clinical examination findings, postoperative prognosis and protocol. All questions were answered to patient's apparent satisfaction. - Bandage removed and new dressing applied. - Sutures were removed today, steri-strips placed over incision site. - Ice and elevation for pain/swelling - Continue weight bearing with CAM boot - Remove boot when non-weight bearing, perform ankle ROM exercises to prevent stiffness Follow up 4 weeks Antonio Vang DPM FACFAS PROGRESS Observed: 03/03/2018 Status: COMPLETED Source: [facility] [place] 7:50 AM CLINIC OTHER CAMPUS REPOSITORY O ID: [id number] Author: Antonio Vang Service: (none) Author Type: Physician Type: Progress Notes Filed: 03/03/2018 8:15 AM Note Text: DOS: 01/17/18 POD: 7 week POV: 2 Procedure: 1st MTPJ arthrodesis, abductor hallucis tenotomy, right foot This 62 year old female presents for a post op visit. Patient states they are doing well. Pain is well controlled. Has been WBAT to the right lower extremity in boot. Denies any current nausea, vomiting, fever, chills, shortness of breath, chest pain or calf pain. Has been taking nothing for DVT prophylaxis. Denies any other pedal complaints. 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 OMEPRAZOLE ORAL Take 20 mg by mouth. predniSONE (DELTASONE) 1 mg tablet Take 4mg/day BiotaGen capsules (Klaire/Prothera) 4 capsules once daily Glutathione (SpoonRocket) 8 pumps twice daily Magnesium Citrate 150mg 90 ct. (Pure Encapsulations) Take 3 capsules daily at night B-Complex Plus (Pure Encapsulations) Take 1 capsule by mouth daily with food. LACTOBACILLUS COMBINATION NO.8 (ADULT PROBIOTIC ORAL) Take by mouth. Diclofenac Sodium (VOLTAREN) 1 % gel Apply moderate amount to painful areas on hands (2g) up to four times daily as needed. Don't exceed a total of 32g daily. Cholecalciferol, Vitamin D3, (VITAMIN D) 1,000 unit ORAL Tab Take one(1) tablet daily. omega-3 fatty acids 1,000 mg ORAL Cap Take one(1) capsule daily. traMADol (ULTRAM) 50 mg tablet Take 1 tablet by mouth once daily as needed. CurcumaSorb (Pure Encapsulations) 2?-3 capsules daily between meals ACETAMINOPHEN/DIPHENHYDRAMINE (TYLENOL PM ORAL) Take 1 tablet by mouth daily at bedtime. turmeric root extract 500 mg cap Take by mouth once daily. No current facility-administered medications for this visit. ALLERGIES No Known Allergies Objective: Patient presents WBAT to right leg. Problem focus examination to the right lower extremity: Incision site is well coapted without evidence of dehiscence. Mild erythema and edema surrounding surgical site. No drainage. No lymphadenopathy. No lymphangitis. No surrounding cellulitis. No signs of infection. Patient has no pain to palpation of calf. The calf is soft, supple and nontender without evidence of DVT. Negative Jose David's test. Satisfactory alignment is noted. Pedal pulses are palpable. Capillary refill time is less than three seconds to all digits. Sensations are intact to light touch. Assessment: Satisfactory post-operative progress Plan: The patient was educated on clinical examination findings, postoperative prognosis and protocol. All questions were answered to patient's apparent satisfaction. - Patient may weight bear as tolerated with CAM boot she can start transitioning to a stiff sole shoe. -She needs to wait 3 weeks then she can begin walking on a treadmill. Let pain be her guide. Follow up 6 weeks get xrays Scribe Attestation Statement: Scribe Statement: I, Jaky Perez LPN , am scribing for, and in the presence of Antonio Vang DPM, FACFAS Scribe: Jaky Perez LPN Clinician Attestation Statement: The information in this document, created by the medical information specialist for me, accurately reflects the services I personally performed and the decisions made by me. I have reviewed and approved this document for accuracy. Antonio Vang DPM, FACFAS CNOV Observed: 03/03/2018 Status: COMPLETED Source: [place] 7:45 AM [facility] OTHER CAMPUS REPOSITORY Office Visit (AGHWW1) SYLVIA RAMIREZ ([id number]) 1955 F [facility] Date Time Provider Department 03/03/18 7:45 AM ANTONIO VANG AGHWW1 During your visit today, we recorded the following information about you: Respiration Weight Height 16/minute 65.8 kg 1.6 m Antonio Vang DPM 03/03/2018 8:15 AM Signed DOS: 01/17/18 POD: 7 week POV: 2 Procedure: 1st MTPJ arthrodesis, abductor hallucis tenotomy, right foot This 62 year old female presents for a post op visit. Patient states they are doing well. Pain is well controlled. Has been WBAT to the right lower extremity in boot. Denies any current nausea, vomiting, fever, chills, shortness of breath, chest pain or calf pain. Has been taking nothing for DVT prophylaxis. Denies any other pedal complaints. 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 OMEPRAZOLE ORAL Take 20 mg by mouth. predniSONE (DELTASONE) 1 mg tablet Take 4mg/day BiotaGen capsules (Klaire/Prothera) 4 capsules once daily Glutathione (SpoonRocket) 8 pumps twice daily Magnesium Citrate 150mg 90 ct. (Pure Encapsulations) Take 3 capsules daily at night B-Complex Plus (Pure Encapsulations) Take 1 capsule by mouth daily with food. LACTOBACILLUS COMBINATION NO.8 (ADULT PROBIOTIC ORAL) Take by mouth. Diclofenac Sodium (VOLTAREN) 1 % gel Apply moderate amount to painful areas on hands (2g) up to four times daily as needed. Don't exceed a total of 32g daily. Cholecalciferol, Vitamin D3, (VITAMIN D) 1,000 unit ORAL Tab Take one(1) tablet daily. omega-3 fatty acids 1,000 mg ORAL Cap Take one(1) capsule daily. traMADol (ULTRAM) 50 mg tablet Take 1 tablet by mouth once daily as needed. CurcumaSorb (Pure Encapsulations) 2?-3 capsules daily between meals ACETAMINOPHEN/DIPHENHYDRAMINE (TYLENOL PM ORAL) Take 1 tablet by mouth daily at bedtime. turmeric root extract 500 mg cap Take by mouth once daily. No current facility-administered medications for this visit. ALLERGIES No Known Allergies Objective: Patient presents WBAT to right leg. Problem focus examination to the right lower extremity: Incision site is well coapted without evidence of dehiscence. Mild erythema and edema surrounding surgical site. No drainage. No lymphadenopathy. No lymphangitis. No surrounding cellulitis. No signs of infection. Patient has no pain to palpation of calf. The calf is soft, supple and nontender without evidence of DVT. Negative Jose David's test. Satisfactory alignment is noted. Pedal pulses are palpable. Capillary refill time is less than three seconds to all digits. Sensations are intact to light touch. Assessment: Satisfactory post-operative progress Plan: The patient was educated on clinical examination findings, postoperative prognosis and protocol. All questions were answered to patient's apparent satisfaction. - Patient may weight bear as tolerated with CAM boot she can start transitioning to a stiff sole shoe. -She needs to wait 3 weeks then she can begin walking on a treadmill. Let pain be her guide. Follow up 6 weeks get xrays Scribe Attestation Statement: Scribe Statement: I, Jaky Perez LPN , am scribing for, and in the presence of Antonio Vang DPM, SANA Scribe: Jaky Perez LPN Clinician Attestation Statement: The information in this document, created by the medical information specialist for me, accurately reflects the services I personally performed and the decisions made by me. I have reviewed and approved this document for accuracy. Antonio Vang DPM, SANA Referring Provider: ANTONIO VANG [[id number]] Allergies As of Date: 03/03/2018 (No Known Allergies) Date Reviewed: 03/03/2018 Reviewed by: Antonio Vang - Fully Assessed Reason for Visit: Pain (foot) [760] Cmt: rt foot Primary Visit Diagnosis:Post-operative state [Z98.890] Prescriptions as of 03/03/2018 Sig: AZATHIOPRINE 50 MG TABLET Take 4 tablets by mouth once * OMEPRAZOLE ORAL Take 20 mg by mouth. PREDNISONE 1 MG TABLET Take 4mg/day OTC NUTRITIONAL SUPPLEMENT 4 capsules once daily OTC NUTRITIONAL SUPPLEMENT 8 pumps twice daily OTC NUTRITIONAL SUPPLEMENT Take 3 capsules daily at night OTC NUTRITIONAL SUPPLEMENT Take 1 capsule by mouth daily* ADULT PROBIOTIC ORAL Take by mouth. DICLOFENAC 1 % TOPICAL GEL Apply moderate amount to pain* * CHOLECALCIFEROL (VITAMIN D3) * Take one(1) tablet daily. * OMEGA-3 FATTY ACIDS 1,000 MG * Take one(1) capsule daily. TRAMADOL 50 MG TABLET Take 1 tablet by mouth once d* OTC NUTRITIONAL SUPPLEMENT 2?-3 capsules daily between m* TYLENOL PM ORAL Take 1 tablet by mouth daily * TURMERIC ROOT EXTRACT 500 MG * Take by mouth once daily. Problem List As Of Date 03/03/2018 Noted Resolved BREAST CANCER LOWER OUTER [C50.519] INVALID FOR* CERVICALGIA [M54.2] INVALID FOR* Constipation [K59.00] INVALID FOR* Localized adiposity [E65] INVALID FOR* Personal history of malignant neoplasm of breas*INVALID FOR* Antisynthetase syndrome [D89.89] INVALID FOR* ILD (interstitial lung disease) (HCC) [J84.9] INVALID FOR* High risk medication use [Z79.899] INVALID FOR* Heavy metal exposure [Z77.018] INVALID FOR* Acquired hallux varus of right foot [M20.31] INVALID FOR*01/17/2018 More... Arthritis of first metatarsophalangeal (MTP) sheila*INVALID FOR*01/17/2018 More... Long-term use of immunosuppressant medication [*INVALID FOR* Level of Service: POST-OP VISIT (NO CHARGE) NON-OB [74513] Disposition: Return in about 6 weeks (around 04/14/2018). Follow-up and Disposition History Recorded Letter Text Antonio Vang DPM Orthopedics [address], [facility] [address] [address], [facility] [address] [address] [facility], [address], [facility] [address] [address], [facility] [address] [address] [facility], [facility] [address] [phone] [email or web address] . March 03, 2018 Sylvia Ramirez 03/03/2018 Ms. Ramirez was last examined by me on 03/03/18 and does not have my permission to return to gym on from 01/17/18 to 02/28/18. Sincerely, Antonio Vang DPM (Signed electronically to expedite mailing) . Encounter Status:Closed by ANTONIO VANG DPM on 03/03/18 PROGRESS Observed: 02/28/2018 Status: COMPLETED Source: [facility] 10:57 AM [facility] OTHER CAMPUS REPOSITORY O ID: [id number] Author: Antonio Vang Service: (none) Author Type: Physician Type: Progress Notes Filed: 03/05/2018 8:08 PM Note Text: DOS: 01/17/18 POD: 9 POV: 1 Procedure: 1st MTPJ arthrodesis, abductor hallucis tenotomy, right foot This 62 year old female presents for a post op visit. Patient states they are doing well. Pain is well controlled. Has been icing and elevating the extremity as instructed preoperatively and has been nonweightbearing to the right lower extremity. Denies any current nausea, vomiting, fever, chills, shortness of breath, chest pain or calf pain. Has been taking nothing for DVT prophylaxis. 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 traMADol (ULTRAM) 50 mg tablet Take 1 tablet by mouth once daily as needed. BiotaGen capsules (Klaire/Prothera) 4 capsules once daily Glutathione (SpoonRocket) 8 pumps twice daily Magnesium Citrate 150mg 90 ct. (Pure Encapsulations) Take 3 capsules daily at night B-Complex Plus (Pure Encapsulations) Take 1 capsule by mouth daily with food. CurcumaSorb (Pure Encapsulations) 2?-3 capsules daily between meals LACTOBACILLUS COMBINATION NO.8 (ADULT PROBIOTIC ORAL) Take by mouth. ACETAMINOPHEN/DIPHENHYDRAMINE (TYLENOL PM ORAL) Take 1 tablet by mouth daily at bedtime. Diclofenac Sodium (VOLTAREN) 1 % gel Apply moderate amount to painful areas on hands (2g) up to four times daily as needed. Don't exceed a total of 32g daily. turmeric root extract 500 mg cap Take by mouth once daily. Cholecalciferol, Vitamin D3, (VITAMIN D) 1,000 unit ORAL Tab Take one(1) tablet daily. omega-3 fatty acids 1,000 mg ORAL Cap Take one(1) capsule daily. OMEPRAZOLE ORAL Take 20 mg by mouth. predniSONE (DELTASONE) 1 mg tablet Take 4mg/day No current facility-administered medications for this visit. ALLERGIES No Known Allergies Objective: Patient presents nonweightbearing to right leg. Dressing is dry, clean, and intact with normal strike through noted. Problem focus examination to the right lower extremity: Incision site is well coapted without evidence of dehiscence. Mild erythema and edema surrounding surgical site. No drainage. No lymphadenopathy. No lymphangitis. No surrounding cellulitis. No signs of infection. Patient has no pain to palpation of calf. The calf is soft, supple and nontender without evidence of DVT. Negative Jose David's test. Satisfactory alignment is noted. Pedal pulses are palpable. Capillary refill time is less than three seconds to all digits. Sensations are intact to light touch. Radiographs: 3 views right foot obtained 01/26/18. Anatomic alignment of 1st metatarsal phalangeal joint with hardware intact. No evidence of lucency or backing out. No signs of acute fracture or bony degeneration. Assessment: Satisfactory post-operative progress Plan: The patient was educated on clinical examination findings, postoperative prognosis and protocol. All questions were answered to patient's apparent satisfaction. - Bandage removed and new dressing applied. - Sutures were left in place. - Tubigrip, JONAH, and CAM boot fitted and dispensed today - Ok to begin showering - Patient may weight bear as tolerated with CAM boot. Follow up 1 week for suture removal. Antonio Vang DPM FACFAS PROGRESS Observed: 02/03/2018 Status: COMPLETED Source: [facility] 11:16 AM [facility] REPOSITORY HNO ID: [id number] Author: Marily Chirinos Service: (none) Author Type: Paraprofessional Aide Teacher Type: Progress Notes Filed: 03/05/2018 8:08 PM Note Text: REVIEW OF SYSTEMS: GENERAL: Well developed, well nourished. No acute distress PAIN: Pain right foot CARDIOVASCULAR: Negative for chest pain, leg swelling and palpations. MSK: Negative for joint pain, swelling, back pain, muscle pain. SKIN: Negative for lesions, rash, itching, metal sensitivity NEURO: Negative for seizure, trauma, numbness/tingling of extremities. ENDOCRINE: Negative for Diabetes Type 1 and Type 2 HEMATOLOGY: Negative for excessive bleeding, clots, bleeding disorders. CNOV Observed: 02/03/2018 Status: COMPLETED Source: [facility] 11:00 AM [facility] REPOSITORY Office Visit (AGHWW1) SYLVIA RAMIREZ ([id number]) 1955 F [facility] Date Time Provider Department 02/03/18 11:00 AM ANTONIO VANG AGHWW1 During your visit today, we recorded the following information about you: Respiration Weight Height 16/minute 65.8 kg 1.6 m Marily Chirinos CMA 03/05/2018 8:08 PM Signed REVIEW OF SYSTEMS: GENERAL: Well developed, well nourished. No acute distress PAIN: Pain right foot CARDIOVASCULAR: Negative for chest pain, leg swelling and palpations. MSK: Negative for joint pain, swelling, back pain, muscle pain. SKIN: Negative for lesions, rash, itching, metal sensitivity NEURO: Negative for seizure, trauma, numbness/tingling of extremities. ENDOCRINE: Negative for Diabetes Type 1 and Type 2 HEMATOLOGY: Negative for excessive bleeding, clots, bleeding disorders. Antonio Vang DPM 03/05/2018 8:08 PM Signed DOS: 01/17/18 POD: 17 POV: 2 Procedure: 1st MTPJ arthrodesis, abductor hallucis tenotomy, right foot This 62 year old female presents for a post op visit. Patient states they are doing well. Pain is well controlled. Has been icing and elevating the extremity as instructed preoperatively and has been partial weightbearing to the right lower extremity with CAM boot. Denies any current nausea, vomiting, fever, chills, shortness of breath, chest pain or calf pain. Has been taking nothing for DVT prophylaxis. 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 OMEPRAZOLE ORAL Take 20 mg by mouth. predniSONE (DELTASONE) 1 mg tablet Take 4mg/day traMADol (ULTRAM) 50 mg tablet Take 1 tablet by mouth once daily as needed. BiotaGen capsules (Klaire/Prothera) 4 capsules once daily Glutathione (SpoonRocket) 8 pumps twice daily Magnesium Citrate 150mg 90 ct. (Pure Encapsulations) Take 3 capsules daily at night B-Complex Plus (Pure Encapsulations) Take 1 capsule by mouth daily with food. CurcumaSorb (Pure Encapsulations) 2?-3 capsules daily between meals LACTOBACILLUS COMBINATION NO.8 (ADULT PROBIOTIC ORAL) Take by mouth. ACETAMINOPHEN/DIPHENHYDRAMINE (TYLENOL PM ORAL) Take 1 tablet by mouth daily at bedtime. Diclofenac Sodium (VOLTAREN) 1 % gel Apply moderate amount to painful areas on hands (2g) up to four times daily as needed. Don't exceed a total of 32g daily. turmeric root extract 500 mg cap Take by mouth once daily. Cholecalciferol, Vitamin D3, (VITAMIN D) 1,000 unit ORAL Tab Take one(1) tablet daily. omega-3 fatty acids 1,000 mg ORAL Cap Take one(1) capsule daily. No current facility-administered medications for this visit. ALLERGIES No Known Allergies Objective: Patient presents partial weightbearing to right leg. Dressing is dry, clean, and intact. Problem focus examination to the right lower extremity: Incision site is well coapted without evidence of dehiscence. No erythema and mild edema surrounding surgical site. No drainage. No lymphadenopathy. No lymphangitis. No surrounding cellulitis. No signs of infection. Patient has no pain to palpation of calf. The calf is soft, supple and nontender without evidence of DVT. Negative Jose David's test. Satisfactory alignment is noted. Pedal pulses are palpable. Capillary refill time is less than three seconds to all digits. Sensations are intact to light touch. Radiographs: 3 views right foot obtained 02/03/18. Anatomic alignment of 1st metatarsal phalangeal joint with hardware intact. No evidence of lucency or backing out. No signs of acute fracture or bony degeneration. Assessment: Satisfactory post-operative progress Plan: The patient was educated on clinical examination findings, postoperative prognosis and protocol. All questions were answered to patient's apparent satisfaction. - Bandage removed and new dressing applied. - Sutures were removed today, steri-strips placed over incision site. - Ice and elevation for pain/swelling - Continue weight bearing with CAM boot - Remove boot when non-weight bearing, perform ankle ROM exercises to prevent stiffness Follow up 4 weeks Antonio Vang DPM FACFAS Referring Provider: SELF [[id number]] Allergies As of Date: 02/03/2018 (No Known Allergies) Date Reviewed: 02/03/2018 Reviewed by: Antonio Vang - Fully Assessed Reason for Visit: fu right foot, post op 01/17/2018 [Other] Primary Visit Diagnosis:Post-operative state [Z98.890] Order(s):XR FOOT GENERAL 3V AP/LAT/OBL RT [[id number]] Order #: [id number] REMOVAL OF SUTURES [[id number]] Order #: [id number] Prescriptions as of 02/03/2018 Sig: OMEPRAZOLE ORAL Take 20 mg by mouth. PREDNISONE 1 MG TABLET Take 4mg/day X AZATHIOPRINE 50 MG TABLET Take 4 tablets by mouth once * TRAMADOL 50 MG TABLET Take 1 tablet by mouth once d* OTC NUTRITIONAL SUPPLEMENT 4 capsules once daily OTC NUTRITIONAL SUPPLEMENT 8 pumps twice daily OTC NUTRITIONAL SUPPLEMENT Take 3 capsules daily at night OTC NUTRITIONAL SUPPLEMENT Take 1 capsule by mouth daily* OTC NUTRITIONAL SUPPLEMENT 2?-3 capsules daily between m* ADULT PROBIOTIC ORAL Take by mouth. TYLENOL PM ORAL Take 1 tablet by mouth daily * DICLOFENAC 1 % TOPICAL GEL Apply moderate amount to pain* TURMERIC ROOT EXTRACT 500 MG * Take by mouth once daily. * CHOLECALCIFEROL (VITAMIN D3) * Take one(1) tablet daily. * OMEGA-3 FATTY ACIDS 1,000 MG * Take one(1) capsule daily. Problem List As Of Date 02/03/2018 Noted Resolved BREAST CANCER LOWER OUTER [C50.519] INVALID FOR* CERVICALGIA [M54.2] INVALID FOR* Constipation [K59.00] INVALID FOR* Localized adiposity [E65] INVALID FOR* Personal history of malignant neoplasm of breas*INVALID FOR* Antisynthetase syndrome [D89.89] INVALID FOR* ILD (interstitial lung disease) (HCC) [J84.9] INVALID FOR* High risk medication use [Z79.899] INVALID FOR* Heavy metal exposure [Z77.018] INVALID FOR* Acquired hallux varus of right foot [M20.31] INVALID FOR*01/17/2018 More... Arthritis of first metatarsophalangeal (MTP) sheila*INVALID FOR*01/17/2018 More... Long-term use of immunosuppressant medication [*INVALID FOR* Disposition: Return in about 4 weeks (around 03/03/2018). Follow-up and Disposition History Recorded Letter Text Antonio Vang DPM Orthopedics [address], [facility] [address], [facility] [address] [address], [facility] [address] [address], [facility] [address] [facility], [facility] [address] [phone] [email or web address] . February 03, 2018 Sylvia Moises James 02/03/2018 Sylvia Ramirez is under my care for treatment of rt foot. Ms. Ramirez was last examined by me on 02/03/18 and does not have my permission to return to gym for 6 weeks. Sincerely, Antonio Vang DPM (Signed electronically to expedite mailing) . Encounter Status:Closed by ANTONIO VANG DPM on 03/05/18 PROGRESS Observed: 01/26/2018 Status: COMPLETED Source: [facility] 10:26 AM [facility] REPOSITORY HNO ID: [id number] Author: John Evans) [address] Service: (none) Author Type: Fine Arts Packer Type: Progress Notes Filed: 02/28/2018 11:24 AM Note Text: REVIEW OF SYSTEMS: GENERAL: Well developed, well nourished. No acute distress PAIN: Negative for pain, history of chronic pain or current treatment for chronic pain conditions CARDIOVASCULAR: Negative for chest pain, leg swelling and palpations. MSK: Negative for joint pain, swelling, back pain, muscle pain. SKIN: Negative for lesions, rash, itching, metal sensitivity NEURO: Negative for seizure, trauma, numbness/tingling of extremities. ENDOCRINE: Negative for Diabetes Type 1 and Type 2 HEMATOLOGY: Negative for excessive bleeding, clots, bleeding disorders. CNOV Observed: 01/26/2018 Status: COMPLETED Source: [facility] 10:15 AM [facility] REPOSITORY Office Visit (AGPOB1) SYLVIA RAMIREZ ([id number]) 1955 F T Date Time Provider Department 01/26/18 10:15 AM ANTONIO VANG AGPOB1 During your visit today, we recorded the following information about you: Temperature Weight Height 98.2 degrees 65.8 kg 1.6 m Cristobal Galeana 02/28/2018 11:24 AM Signed REVIEW OF SYSTEMS: GENERAL: Well developed, well nourished. No acute distress PAIN: Negative for pain, history of chronic pain or current treatment for chronic pain conditions CARDIOVASCULAR: Negative for chest pain, leg swelling and palpations. MSK: Negative for joint pain, swelling, back pain, muscle pain. SKIN: Negative for lesions, rash, itching, metal sensitivity NEURO: Negative for seizure, trauma, numbness/tingling of extremities. ENDOCRINE: Negative for Diabetes Type 1 and Type 2 HEMATOLOGY: Negative for excessive bleeding, clots, bleeding disorders. Antonio Vang DPM 03/05/2018 8:08 PM Addendum DOS: 01/17/18 POD: 9 POV: 1 Procedure: 1st MTPJ arthrodesis, abductor hallucis tenotomy, right foot This 62 year old female presents for a post op visit. Patient states they are doing well. Pain is well controlled. Has been icing and elevating the extremity as instructed preoperatively and has been nonweightbearing to the right lower extremity. Denies any current nausea, vomiting, fever, chills, shortness of breath, chest pain or calf pain. Has been taking nothing for DVT prophylaxis. 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 traMADol (ULTRAM) 50 mg tablet Take 1 tablet by mouth once daily as needed. BiotaGen capsules (Klaire/Prothera) 4 capsules once daily Glutathione (SpoonRocket) 8 pumps twice daily Magnesium Citrate 150mg 90 ct. (Pure Encapsulations) Take 3 capsules daily at night B-Complex Plus (Pure Encapsulations) Take 1 capsule by mouth daily with food. CurcumaSorb (Pure Encapsulations) 2?-3 capsules daily between meals LACTOBACILLUS COMBINATION NO.8 (ADULT PROBIOTIC ORAL) Take by mouth. ACETAMINOPHEN/DIPHENHYDRAMINE (TYLENOL PM ORAL) Take 1 tablet by mouth daily at bedtime. Diclofenac Sodium (VOLTAREN) 1 % gel Apply moderate amount to painful areas on hands (2g) up to four times daily as needed. Don't exceed a total of 32g daily. turmeric root extract 500 mg cap Take by mouth once daily. Cholecalciferol, Vitamin D3, (VITAMIN D) 1,000 unit ORAL Tab Take one(1) tablet daily. omega-3 fatty acids 1,000 mg ORAL Cap Take one(1) capsule daily. OMEPRAZOLE ORAL Take 20 mg by mouth. predniSONE (DELTASONE) 1 mg tablet Take 4mg/day No current facility-administered medications for this visit. ALLERGIES No Known Allergies Objective: Patient presents nonweightbearing to right leg. Dressing is dry, clean, and intact with normal strike through noted. Problem focus examination to the right lower extremity: Incision site is well coapted without evidence of dehiscence. Mild erythema and edema surrounding surgical site. No drainage. No lymphadenopathy. No lymphangitis. No surrounding cellulitis. No signs of infection. Patient has no pain to palpation of calf. The calf is soft, supple and nontender without evidence of DVT. Negative Jose David's test. Satisfactory alignment is noted. Pedal pulses are palpable. Capillary refill time is less than three seconds to all digits. Sensations are intact to light touch. Radiographs: 3 views right foot obtained 01/26/18. Anatomic alignment of 1st metatarsal phalangeal joint with hardware intact. No evidence of lucency or backing out. No signs of acute fracture or bony degeneration. Assessment: Satisfactory post-operative progress Plan: The patient was educated on clinical examination findings, postoperative prognosis and protocol. All questions were answered to patient's apparent satisfaction. - Bandage removed and new dressing applied. - Sutures were left in place. - Tubigrip, JONAH, and CAM boot fitted and dispensed today - Ok to begin showering - Patient may weight bear as tolerated with CAM boot. Follow up 1 week for suture removal. Antonio Vang DPM FACFAS Referring Provider: ANTONIO VANG [[id number]] Allergies As of Date: 01/26/2018 (No Known Allergies) Date Reviewed: 01/26/2018 Reviewed by: Antonio Vang - Fully Assessed Reason for Visit: Follow Up [171] Cmt: right foot Primary Visit Diagnosis:Post-operative state [Z98.890] Order(s):XR FOOT GENERAL 3V AP/LAT/OBL RT [[id number]] Order #: [id number] PNEUMATI WALKING BOOT PREFAB [[id number]] Order #: [id number] Prescriptions as of 01/26/2018 Sig: X AZATHIOPRINE 50 MG TABLET Take 4 tablets by mouth once * TRAMADOL 50 MG TABLET Take 1 tablet by mouth once d* OTC NUTRITIONAL SUPPLEMENT 4 capsules once daily OTC NUTRITIONAL SUPPLEMENT 8 pumps twice daily OTC NUTRITIONAL SUPPLEMENT Take 3 capsules daily at night OTC NUTRITIONAL SUPPLEMENT Take 1 capsule by mouth daily* OTC NUTRITIONAL SUPPLEMENT 2?-3 capsules daily between m* ADULT PROBIOTIC ORAL Take by mouth. TYLENOL PM ORAL Take 1 tablet by mouth daily * DICLOFENAC 1 % TOPICAL GEL Apply moderate amount to pain* TURMERIC ROOT EXTRACT 500 MG * Take by mouth once daily. * CHOLECALCIFEROL (VITAMIN D3) * Take one(1) tablet daily. * OMEGA-3 FATTY ACIDS 1,000 MG * Take one(1) capsule daily. OMEPRAZOLE ORAL Take 20 mg by mouth. PREDNISONE 1 MG TABLET Take 4mg/day Problem List As Of Date 01/26/2018 Noted Resolved BREAST CANCER LOWER OUTER [C50.519] INVALID FOR* CERVICALGIA [M54.2] INVALID FOR* Constipation [K59.00] INVALID FOR* Localized adiposity [E65] INVALID FOR* Personal history of malignant neoplasm of breas*INVALID FOR* Antisynthetase syndrome [D89.89] INVALID FOR* ILD (interstitial lung disease) (HCC) [J84.9] INVALID FOR* High risk medication use [Z79.899] INVALID FOR* Heavy metal exposure [Z77.018] INVALID FOR* Acquired hallux varus of right foot [M20.31] INVALID FOR*01/17/2018 More... Arthritis of first metatarsophalangeal (MTP) sheila*INVALID FOR*01/17/2018 More... Long-term use of immunosuppressant medication [*INVALID FOR* Disposition: Return in about 1 week (around 02/02/2018). Follow-up and Disposition History Recorded Encounter Status:Closed by ANTONIO VANG DPM on 02/28/18 ANES POST Observed: 01/17/2018 Status: COMPLETED Source: [facility] 10:30 AM [facility] REPOSITORY HNO ID: [id number] Author: Jaxon Thomas Service: Anesthesiology Author Type: Physician Type: Anesthesia PostOp Filed: 01/17/2018 10:49 AM Note Text: POST ANESTHESIA EVALUATION NOTE SERVICE DATE: 01/17/2018 SERVICE TIME: 10:48 AM : 1955 Vitals: 01/17/18 0639 01/17/18 0905 Temp: 36.8 ?C (98.2 ?F) 36.2 ?C (97.2 ?F) 01/17/18 0910 01/17/18 0920 01/17/18 0930 01/17/18 1010 BP: 134/79 126/63 109/59 122/61 01/17/18 0910 01/17/18 0920 01/17/18 0930 01/17/18 1010 Pulse: 71 71 77 78 01/17/18 0910 01/17/18 0920 01/17/18 0930 01/17/18 1010 Resp: 17 13 20 16 01/17/18 0905 01/17/18 0910 01/17/18 0920 01/17/18 0930 SpO2: 100% 100% 99% 95% Validated Vital Signs: Yes POST ANES STATUS: No apparent anesthetic complications. The patient is appropriately hydrated with stable respiratory and cardiovascular status. Patient has safe and adequate airway control. The patient has appropriate pain relief and no significant post operative nausea or vomiting. The patient has achieved baseline mental status. Intra-Operative Events: No Significant Anesthesia Events Further assessment by Anesthesia Service: None Other Remarks: SIGNATURE: Jaxon Thomas MD PATIENT NAME: Sylvia Ramirez DATE: January 17, 2018 TIME: 10:48 AM PAGER/CONTACT #: [phone] FLUORO UP TO 1 HOUR Observed: 01/17/2018 Status: F Source: [facility] [id number] 8:58 AM HEALTH SYSTEM REPOSITORY Performed at [facility] APPROVED BY: Cecilio Hernandez MD IMPRESSION: 1 minute 27 seconds of fluoroscopy time was utilized for this exam. BRIEF OP NOT Observed: 01/17/2018 Status: COMPLETED Source: [facility] 8:33 AM [facility]IN[facility] OTHER [facility]AMP[facility] REPOSITORY HNO ID: [id number] Author: Antonio Vang Service: Podiatry Author Type: Physician Type: Brief Op Note Filed: 01/17/2018 8:35 AM Note Text: BRIEF OPERATIVE / PROCEDURE NOTE LOG ID: [id number] Surgery/Procedure Date: 01/17/2018 Incision/Procedure Start Time: 7:38 AM Incision Close/Procedure End Time: Surgeon(s)/Proceduralist(s) and Marketing Designer(s): Surgeon(s) and Role: * Antonio Vang - Primary 1st Marketing Designer: Lindy Chong DPM Procedure(s): 1. 1st MTP arthrodesis, right foot 2. Abductor hallucis tenotomy, right foot Anesthesia: General Findings: Per dictation Estimated Blood Loss: <25 mls Specimens: None Complications: None Pre-Op/Pre-Procedure Diagnosis: 1. 1st MTP arthritis, right foot 2. Hallux varus, right foot Post-Op/Post-Procedure Diagnosis: 1. 1st MTP arthritis, right foot 2. Hallux varus, right foot SIGNATURE: Antonio Vang DPM, FACFAS PATIENT NAME: Sylvia Ramirez DATE: January 17, 2018 TIME: 8:33 AM PAGER/CONTACT #: [phone] Observed: 01/17/2018 Status: COMPLETED Source: [facility] 6:59 AM CLINIC OTHER CAMPUS REPOSITORY O ID: [id number] Author: Antonio Vang Service: Podiatry Author Type: Physician Type: Progress Notes Filed: 01/17/2018 7:26 AM Note Text: ORTHOPAEDIC PRE-OPERATIVE NOTE SERVICE DATE: 01/17/2018 SERVICE TIME: 659 DIAGNOSIS: Hallux varus of the R 1st MTPJ PROCEDURE(S): R 1st MTPJ arthrodesis, Abductor hallucis tenotomy, right great toe Consent on chart: Yes LABS: CBC: WBC 5.83 04/13/2016 Hemoglobin 13.0 04/13/2016 Hematocrit 39.4 04/13/2016 Platelet Count 239 04/13/2016 CMP: Sodium 136 04/13/2016 Potassium 4.1 04/13/2016 BUN 7 04/13/2016 Creatinine 0.46 04/13/2016 Glucose 97 04/13/2016 COAGS: No results found for this basename: aptt,inr URINALYSIS: Ketones, Urine Negative 05/22/2013 Nitrites Negative 05/22/2013 Specific [place], Ur 1.008 05/22/2013 Protein, Urine Negative 05/22/2013 Leukest Negative 05/22/2013 Type AND cross: No Medical Clearance: Yes CXR/EKG: Yes Medications/Preop Antibiotics: Ancef ALLERGIES No Known Allergies Surgical site identified: Yes NPO: Yes IV Fluids: Yes Risks and benefits, complications, treatment options, expected outcome and rehabilitation explained, patient understands. All questions were entertained and answered. Patient wishes to proceed with above procedure(s). SIGNATURE: Lindy Chong DPM PATIENT NAME: Sylvia Ramirez DATE: January 17, 2018 TIME: 6:59 AM I personally saw and evaluated the patient. I reviewed the resident's note. I agree with the resident's assessment and plan unless otherwise noted. Antonio Vang DPM, SANA HISTORY PHYSICAL Observed: 01/17/2018 Status: COMPLETED Source: [place] 6:58 AM [facility] HNO ID: [id number] Author: Antonio Vang Service: Podiatry Author Type: Physician Type: HANDP Filed: 01/17/2018 7:26 AM Note Text: HISTORY AND PHYSICAL UPDATE EVALUATION DATE: 01/17/2018 EVALUATION TIME: 658 PHYSICAL EXAM MUST BE COMPLETED ON ADMISSION The History and Physical (completed in the past 30 days) has been reviewed and the patient has been examined. The contents accurately reflect the patient's condition with the following additions or revisions since the HANDP was completed. Examination indicates no changes This HANDP can be found in the EMR dated 01/05/18. SIGNATURE: Lindy Chong DPM PATIENT NAME: Sylvia Ramirez DATE: January 17, 2018 TIME: 6:58 AM I personally saw and evaluated the patient. I reviewed the resident's note. I agree with the resident's assessment and plan unless otherwise noted. Antonio Vang DPM, SANA ANES PREOP Observed: 01/17/2018 Status: COMPLETED Source: [place] 6:56 AM [facility] REPOSITORY HNO ID: [id number] Author: Jaxon Thomas Service: Anesthesiology Author Type: Physician Type: Anesthesia PreOp Filed: 01/17/2018 7:00 AM Note Text: ANESTHESIOLOGY DAY OF SURGERY NOTE SERVICE DATE: 01/17/2018 SERVICE TIME: 6:59 AM : 1955 Procedure(s) (LRB): ABDUCTOR HALLUCIS TENOTOMY RIGHT 1ST TOE (Right) ARTHRODESIS GREAT TOE METATARSOPHALANGEAL JOINT 1ST TOE (Right) Surgeon(s): Antonio Vang Estimated body mass index is 25.69 kg/m? as calculated from the following: Height as of this encounter: 160 cm (5' 3). Weight as of this encounter: 65.8 kg (145 lb). 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 Long-Term Use of Immunosuppressant Medication PAST MEDICAL HISTORY Diagnosis Date - 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; on prednisone, imuran - Malignant neoplasm of breast (female), unspecified site Breast cancer, left PAST SURGICAL HISTORY Procedure Laterality Date - APPENDECTOMY - BREAST BIOPSY 02/06/2015 Left breast - CARPAL TUNNEL RIGHT WRIST 05/2009 - CORRECT BUNION,SIMPLE Bunion, bilateral - HYSTERECTOMY HX 2007 laparoscopic and vaginal total hysterectomy - KNEE SCOPE,DIAGNOSTIC Arthroscopy, knee- left - MASTEC PARTIAL W AXILL NODE REMOV 07-06-06 sentinel node biopsy, left - PAST SURGICAL HISTORY OF 2006 Left lumpectomy - PAST SURGICAL HISTORY OF 02/2011 Carpal tunnel decomp left wrist - PAST SURGICAL HISTORY OF 07/2010 abdominoplasty;left breast reconstruction, right breast mastopexy - PAST SURGICAL HISTORY OF 11/2011 breast reconstruction left - PAST SURGICAL HISTORY OF 03/2015 Right foot - REMOVAL OF TONSILS,<12 Y/O Tonsillectomy - REPAIR INCISIONAL HERNIA,REDUCIBLE 1998 abdominal FAMILY HISTORY Problem Relation Age of Onset - Breast Cancer Mother 67 - Colon Cancer Mother - Breast Cancer Sister 46 - Breast Cancer Paternal Grandmother 75 - Breast Cancer Maternal Aunt 57 - Breast Cancer Maternal Aunt 55 - Arthritis Father Gout - Cancer Other First cousin; lymphoma. Social History: Social History Substance Use Topics - Smoking status: Former Smoker Packs/day: 1.00 Years: 10.00 Types: Cigarettes Quit date: 08/20/1979 - Smokeless tobacco: Never Used - Alcohol use 0.0 oz/week Comment: About one serving per month No current facility-administered medications on file prior to encounter. Current Outpatient Prescriptions on File Prior to Encounter: Magnesium Citrate 150mg 90 ct. (Pure Encapsulations) Take 3 capsules daily at night B-Complex Plus (Pure Encapsulations) Take 1 capsule by mouth daily with food. LACTOBACILLUS COMBINATION NO.8 (ADULT PROBIOTIC ORAL) Take by mouth. ACETAMINOPHEN/DIPHENHYDRAMINE (TYLENOL PM ORAL) Take 1 tablet by mouth daily at bedtime. Diclofenac Sodium (VOLTAREN) 1 % gel Apply moderate amount to painful areas on hands (2g) up to four times daily as needed. Don't exceed a total of 32g daily. turmeric root extract 500 mg cap Take by mouth once daily. Cholecalciferol, Vitamin D3, (VITAMIN D) 1,000 unit ORAL Tab Take one(1) tablet daily. traMADol (ULTRAM) 50 mg tablet Take 1 tablet by mouth once daily as needed. [employer]Gen capsules (Klaire/Prothera) 4 capsules once daily Glutathione (SpoonRocket) 8 pumps twice daily CurcumaSorb (Pure Encapsulations) 2?-3 capsules daily between meals omega-3 fatty acids 1,000 mg ORAL Cap Take one(1) capsule daily. Current Facility-Administered Medications: lactated ringers infusion 5-30 mL/hr INTRAVENOUS CONTINUOUS Antonio Vang Last Rate: 30 mL/hr at 01/17/1846 30 mL/hr at 01/17/18 0646 ceFAZolin iv piggyback 2 g in D5W (iso-osmotic) 100 mL (ANCEF) 2 g INTRAVENOUS Pre-Op Once Antonio Vang Allergies: ALLERGIES No Known Allergies DOS EXAM: Adequate NPO status: Yes Anesthetic risks, benefits, alternatives, personnel and consent discussed: Yes Patient agrees to proceed: Yes Previous Anesthesia: No history of adverse event. Airway Assessment: MP 2; Neck ROM: Full ROM without neurologic symptoms; Airway Evaluation: No significant abnormalities Symptoms of Sleep Apnea: None Dentition: Teeth intact Additional Physical Exam: Lungs: Patient health status unchanged since recent history and physical. See history and physical for exam findings. Cardiac: Patient health status unchanged since recent history and physical. See history and physical for exam findings. Additional Pertinent Findings: N/A Blood Products: Not anticipated for this procedure. Anesthetic Plan: General, Standard ASA Monitors. Consider steroid prep. Pain Management Plan: Parenteral or Oral ASA Class: 2 Other Medical Problems: None Chronic Beta Dillan medication administered within 24 hours: N/A I have interviewed and examined the patient. I have reviewed the medical record and/or the pre-anesthesia evaluation, pertinent labs, and test results. Significant changes in the patient's condition since the History and Physical, not otherwise documented in primary service progress notes: No This contains updated information obtained within 48 hours of Surgery/Procedure. SIGNATURE: Jaxon Thomas MD PATIENT NAME: Sylvia Ramirez DATE: January 17, 2018 TIME: 6:56 AM CSN: [id number] PT ED Observed: 01/17/2018 Status: COMPLETED Source: [place] 6:27 AM [facility] OTHER [place] REPOSITORY HNO ID: [id number] Author: Aide (Rn) YUE Irby Service: Nursing Author Type: Registered Nurse Type: Patient Education Filed: 01/17/2018 6:27 AM Note Text: ONGOING PATIENT EDUCATION TOPIC Reinforced: pain scale Patient Name: Sylvia Ramirez Patient Location: [facility] Readiness To Learn Motivation To Learn: Eager Instruction Provided To: Patient Learning Response Patient/Family Response: Verbalizes understanding of: PAIN MANAGEMENT-Effective strategies to manage pain in addition to pain medication Method of Instruction: Individual instruction Follow-Up Plan: Patient instructed to call with any further issues Electronically signed by: Aide Irby RN OPERATIVE NO Observed: 01/17/2018 Status: COMPLETED Source: [place] 12:00 AM [facility] OTHER CAMPUS REPOSITORY HNO ID: [id number] Author: Antonio Vang Service: Podiatry Author Type: Physician Type: Operative Report Filed: 01/18/2018 8:15 AM Note Text: [facility] - Operative Report - ASC SYLVIA RAMIREZ : 1955 AGE: 62. SEX: F PATIENT TYPE: A HOSP SVC: PODI LOCATION: [facility] ATTENDING PHYSICIAN: ANTONIO VANG CSN NUMBER: [id number] DATE OF SURGERY/PROCEDURE: 01/17/2018 PREOPERATIVE DIAGNOSIS: 1. Acquired hallux varus deformity, right foot. 2. First metatarsophalangeal joint arthritis, right foot. POSTOPERATIVE DIAGNOSIS: 1. Acquired hallux varus deformity, right foot. 2. First metatarsophalangeal joint arthritis, right foot. SURGEON: Antonio Vang DPM CONTOUR STITCHER: Lindy Chong DPM. SURGERY/PROCEDURE: 1. First metatarsophalangeal joint arthrodesis, right foot. 2. Abductor hallucis tenotomy, right foot. ANESTHESIA: General with local. ESTIMATED BLOOD LOSS: Less than 25 mL. FLUIDS: 600 mL of lactated Ringer's. SPECIMENS: None. COMPLICATION: None. SPECIAL MEDICATIONS: Ancef 2 g IV. CONDITION TO PACU: Stable and extubated. INDICATIONS: A 62-year-old female presents today for surgical management of painful right great toe secondary to hallux varus deformity, status post bunionectomy and first metatarsophalangeal joint arthritis. Condition is chronic, progressive, worsening, and was counseled on nonoperative care. Her symptoms are negatively affecting her activities of daily living and extracurricular exercises. In preoperative consultation, I had a lengthy discussion with the patient regarding conservative and surgical treatment options, advantages and disadvantages of both approaches. All questions were answered to her apparent satisfaction. She has opted to proceed with surgical intervention and I explained her details of procedure as well as medically reasonable risks, benefits, alternatives, prognosis, and potential complications. No guarantees were stated or implied as the outcome of surgery. DESCRIPTION OF PROCEDURE: In the preoperative area, the patient was identified and greeted. The right leg was marked as the operative extremity and the operative consent was reviewed, signed, and dated. A preoperative huddle was performed per standard protocol. The patient was brought to the operating room, placed on the operating room table in supine position. General anesthesia was administered via LMA by the Anesthesia Department. A 2 g of Ancef was infused intravenously and all extremities were padded and protected. A well-padded right calf tourniquet was applied. The right foot, ankle and lower leg were prepped and draped in usual sterile fashion and a preprocedure time-out was performed by all operative personnel verifying the patient, operative extremity, and surgical procedures. Hemostasis was achieved via elevation, exsanguination, and inflation of the right calf tourniquet to 250 mmHg. Attention was directed to the dorsal aspect of the right great toe joint, where a linear incision was made through a prior surgical scar over the first metatarsophalangeal joint. Blunt dissection was carried through subcutaneous tissue with care taken to clamp, ligate all bleeders as necessary and retract all peripheral nerves identified. Extensor tendon was identified and was retracted laterally. A dorsal incision was made over the periosteal and capsular tissues over the first metatarsophalangeal joint. Periarticular dissection was performed over the dorsal aspect of the first metatarsophalangeal joint. Dissection was deepened over the medial aspect of the first metatarsophalangeal joint. The abductor hallucis tendon was identified and noted to be extremely taut with the hallux varus condition. At this point, the abductor hallucis tendon was isolated and a tenotomy was performed of the abductor hallucis tendon. This allowed for significant improvement in the correction of the hallux varus deformity. Periarticular dissection was performed over the first metatarsophalangeal joint releasing medial and lateral collateral ligaments. Evaluation of the first metatarsophalangeal joint noted severe arthritic changes throughout the first metatarsophalangeal joint. At this point, the first metatarsophalangeal joint was prepared for arthrodesis utilizing standard cone and cup type reamers removing remaining articular cartilage and subchondral bone on the head of the first metatarsal base of proximal phalanx. Appropriate technique was utilized cooling the reamers with normal saline as the reaming process was occurring. Head of the first metatarsal and base of proximal phalanx were then fenestrated with 2.0 mm drill bit. At this point, the first metatarsophalangeal joint was placed in a neutral rectus position in all planes with approximately 10 degrees of dorsiflexion built into the arthrodesis position. At this point, this position was captured with a 1.6 mm K-wire and intraoperative fluoroscopy noted excellent aqyg-rw-[id number] apposition and excellent position of the first metatarsophalangeal joint arthrodesis. At this point, the first metatarsophalangeal joint arthrodesis was fixated with a 3.4 mm headless compression screw from [employer] from the head of the first metatarsal into the lateral aspect of the base of proximal phalanx. This screw provided excellent initial compression and stability at the first metatarsophalangeal joint arthrodesis. Next, a 6-hole locking plate from the [employer] set was selected and appropriately contoured to the predetermined position of the first metatarsophalangeal joint arthrodesis. The plate was bent appropriately, particularly in the sagittal plane to match the alignment of the first metatarsophalangeal joint. The plate was then appropriately positioned and then secured to the first metatarsal and proximal phalanx with three 2.5 mm cortical locking and nonlocking screws. There was a total of 6 screws utilized with 3 in the first metatarsal and 3 in the proximal phalanx. Simulated weightbearing was performed and there was noted to be excellent position of the first metatarsophalangeal joint arthrodesis in all planes with appropriate amount of sagittal plane position of the first metatarsophalangeal joint arthrodesis. The wound was flushed with copious amounts of sterile saline. Provisional fixation of the K-wire was removed. There was excellent gblc-cm-qqcv apposition and no clinical motion noted at the first metatarsophalangeal joint arthrodesis. At this point, the wound was again flushed with copious amounts of sterile saline. Periosteal and subcutaneous tissue was approximated with 2-0 Vicryl. The right calf tourniquet was deflated. Vascular status returned immediately to the right foot, ankle with palpable pedal pulse and immediate capillary refill time to all toes. Meticulous hemostasis was achieved via Bovie cauterization. Subcutaneous tissue closure was performed with 3-0 Vicryl and the skin was reapproximated with 4-0 nylon. Local anesthesia was performed at the surgical site with 0.5% Marcaine plain. Xeroform gauze was applied to the incision followed by dry sterile dressing to the right foot and ankle. A modified Andres compression dressing and a well-padded short-leg splint was applied to the right foot, ankle, lower leg with the right ankle in neutral position. Capillary refill time was immediate to all toes of the right foot at this point. The patient was extubated successfully within the operating room by the Anesthesia Department. The patient was then transferred to the PACU via [facility] with vital signs stable. The patient tolerated the anesthesia and procedure well, left the operating room in stable medical condition. Antonio Vang DPM, FACFAS JPG:[id number] /[id number] HISTORY PHYSICAL Observed: 01/05/2018 Status: COMPLETED Source: [place] 9:26 AM CLINIC OTHER CAMPUS REPOSITORY HNO ID: [id number] Author: Jaimee Sandoval (Boil Off Machine Operator Cloth) [place] Service: (none) Author Type: Nurse Practitioner Type: HANDP Filed: 01/05/2018 9:54 AM Note Text: HISTORY AND PHYSICAL EXAMINATION SERVICE DATE: 01/05/2018 SERVICE TIME: 9:26 AM PRIMARY CARE PHYSICIAN: Levar Eubanks MD SURGEON: Dr. Vang ANESTHESIA: General DIAGNOSIS: Arthritis of first metatarsophalangeal (MTP) joint of right foot PROCEDURE: Abductor Hallucis Tenotomy Right 1st toe Subjective CHIEF COMPLAINT: Right painful first toe s/p remote bunionectomy HPI: This is a very pleasant 62 year old female who presents for PAT at request of Dr. Vang for 0730 case on 01/17/18 She states she had a bunionectomy on the right great toe ~13 years ago She feels they over corrected it and she has experienced intermittent aching to sore pain in the toe, worse with shoegear, increasingly worse over the last few years due to her arthritis. 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 Maintains on prednisone and imuran. 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; on prednisone, imuran - Malignant neoplasm of breast (female), unspecified site Breast cancer, left PAST SURGICAL HISTORY Procedure Laterality Date - APPENDECTOMY - BREAST BIOPSY 02/06/2015 Left breast - CARPAL TUNNEL RIGHT WRIST 05/2009 - CORRECT BUNION,SIMPLE Bunion, bilateral - HYSTERECTOMY HX 2007 laparoscopic and vaginal total hysterectomy - KNEE SCOPE,DIAGNOSTIC Arthroscopy, knee- left - MASTEC PARTIAL W AXILL NODE REMOV 07-06-06 sentinel node biopsy, left - PAST SURGICAL HISTORY OF 2006 Left lumpectomy - PAST SURGICAL HISTORY OF 02/2011 Carpal tunnel decomp left wrist - PAST SURGICAL HISTORY OF 07/2010 abdominoplasty;left breast reconstruction, right breast mastopexy - PAST SURGICAL HISTORY OF 11/2011 breast reconstruction left - PAST SURGICAL HISTORY OF 03/2015 Right foot - REMOVAL OF TONSILS,<12 Y/O Tonsillectomy - REPAIR INCISIONAL HERNIA,REDUCIBLE 1998 abdominal FAMILY HISTORY Problem Relation Age of Onset - Breast Cancer Mother 67 - Colon Cancer Mother - Breast Cancer Sister 46 - Breast Cancer Paternal Grandmother 75 - Breast Cancer Maternal Aunt 57 - Breast Cancer Maternal Aunt 55 - Arthritis Father Gout - Cancer Other First cousin; lymphoma. Social History Substance Use Topics - Smoking status: Former Smoker Packs/day: 1.00 Years: 10.00 Types: Cigarettes Quit date: 08/20/1979 - Smokeless tobacco: Never Used - Alcohol use 0.0 oz/week Comment: About one serving per month Prior to Admission medications as of 12/28/17 1006 Medication Sig Last Dose Taking OMEPRAZOLE ORAL Take 20 mg by mouth. Taking predniSONE (DELTASONE) 1 mg tablet Take 4mg/day azaTHIOprine (IMURAN) 50 mg tablet Take 4 tablets by mouth once daily. traMADol (ULTRAM) 50 mg tablet Take 1 tablet by mouth once daily as needed. Taking Bi[employer]Gen capsules (Klaire/Prothera) 4 capsules once daily Taking Glutathione (SpoonRocket) 8 pumps twice daily Taking Magnesium Citrate 150mg 90 ct. (Pure Encapsulations) Take 3 capsules daily at night Taking B-Complex Plus (Pure Encapsulations) Take 1 capsule by mouth daily with food. Taking CurcumaSorb (Pure Encapsulations) 2?-3 capsules daily between meals Taking LACTOBACILLUS COMBINATION NO.8 (ADULT PROBIOTIC ORAL) Take by mouth. Taking ACETAMINOPHEN/DIPHENHYDRAMINE (TYLENOL PM ORAL) Take 1 tablet by mouth daily at bedtime. Taking Diclofenac Sodium (VOLTAREN) 1 % gel Apply moderate amount to painful areas on hands (2g) up to four times daily as needed. Don't exceed a total of 32g daily. Taking turmeric root extract 500 mg cap Take by mouth once daily. Taking Cholecalciferol, Vitamin D3, (VITAMIN D) 1,000 unit ORAL Tab Take one(1) tablet daily. Taking omega-3 fatty acids 1,000 mg ORAL Cap Take one(1) capsule daily. Taking ALLERGIES No Known Allergies COMPLETE REVIEW OF SYSTEMS: All systems reviewed and negative unless otherwise stated in the HPI. Objective PHYSICAL EXAM: MENTAL STATUS: alert, oriented to person, place and time HEENT: Normocephalic/atraumatic, pharynx clear LUNGS: Lungs clear to auscultation, even, unlabored CARDIAC: RRR, S1S2, no rubs, murmurs, or gallops ABDOMEN: Abdomen soft, non-tender, positive BSx4, No masses or organomegaly EXTREMITIES: +2 BLE pedal pulses, no clubbing, cyanosis, edema 0=0/10 01/05/18 0923 BP: 125/65 BP Site: Right Arm BP Position: Sitting Pulse: 70 Resp: 16 Temp: 36.3 ?C (97.4 ?F) SpO2: 98% Weight: 65.8 kg (145 lb) Height: 160 cm (5' 3) Body mass index is 25.69 kg/m?. Plan: 1) Arthritis of first metatarsophalangeal (MTP) joint of right foot - deferred to surgeon - pt instructions given. Pt verbalized understanding - PCP clearance obtained by Dr. Vang's office; please see telephone note 12/06/17 2) Antisynthetase syndrome - follows with pulm, rheumatology - on prednisone 4mg and imuran 200mg - pt has instructions to hold imuran for 1 week prior to procedure - she is asymptomatic from a cardiopulmonary stand point. - No recent CXR to review - lung diffusion capacity testing 03/22/17 IMPRESSION: Spirometry is normal. There is no significant bronchodilator response. Clinical improvement following bronchodilator therapy may occur even if there is no spirometric improvement. The TLC, RV and RV/TLC are normal. The diffusing capacity is normal. The diffusing capacity corrected for volume is normal. - normal PFTs per pulm note - she denies use of inhalers SIGNATURE: Jaimee Portillo APRN.CNP PATIENT NAME: Sylvia Ramirez DATE: January 05, 2018 TIME: 9:26 AM PAGER/CONTACT #: [email or web address] Observed: 01/05/2018 Status: COMPLETED Source: [place] 9:00 AM CLINIC OTHER CAMPUS REPOSITORY [facility] LEATHASYLVIA Kelley ([id number]) 1955 F T Date Time Provider Department 01/05/18 9:00 AM [facility] During your visit today, we recorded the following information about you: Temperature Pulse Respiration Blood pressure 97.4 degrees 70/minute 16/minute 125/65 Weight Height 65.8 kg 1.6 m Jaimee Portillo APRN.CNP 01/05/2018 9:00 AM Signed PATIENT INSTRUCTIONS FOR DAY OF SURGERY: Gordo Ramirez is scheduled for surgery at the [address] [address] Surgery Date: 01/17/18 Arrival Time: 0600 Surgeon: Dr. Vang Procedure: Abductor hallucis tenotomy right 1st toe Please read below carefully for your instructions. 1) Please bring with you any appointment folder / outside facility lab results 2) Do not eat or drink after midnight the day of your surgery (except morning medicines as listed below). Candy, mint and smoking are not permitted. If your surgery is in the afternoon, you may be allowed to drink water in the morning but this will be decided by your surgeon and communicated to you if it applies. Clear liquids may be taken until: N/A 3) STOP TAKING THESE MEDICATIONS prior to surgery: Aspirin - n/a NSAIDS - 7 days before surgery (aleve, motrin, ibuprofen, naproxen) Vitamin E - 10 to 14 days before surgery Mulitvitamins with Vit E - 10 to 14 days before surgery Herbal Medications/Diet pills - 10-14 days before surgery (NSAIDS include painkillers like Motrin, Aleve, Naprosyn, Mobic, Diclofenac, Ibuprofen) 4) Avoid NSAIDs for PAIN RELIEF. If needed you could take Tylenol on the day of surgery with sips of water. You may also use opiates prescribed by your physician which includes medications like percocet / vicodin / MS contin / Darvocet / Ultram 5) BLOOD THINNERS including coumadin, plavix and ticlid to be stopped as directed by surgeon / soundscriber mechanic 6) PATIENTS WITH DIABETES: Please check your blood sugar the day of surgery Please bring your glucometer and supplies with you Do not take oral diabetes medications on the day of surgery. Do not take byetta , symlin or any insulins on the day of surgery (lantus, Humalog, lispro, aspart etc). You may resume your medications after your procedure. If you see an head knitting machine fixer and have further questions about your insulin regimen, please contact them for further instructions 7) The following MEDICATIONS SHOULD BE TAKEN ON MORNING OF SURGERY with a few sips of water Omeprazole 8) FOR PATIENTS WITH ASTHMA /COPD Use your inhalers as prescribed / as needed on the day of surgery. Bring your inhalers with you to the hospital. If you have Obstructive Sleep Apnea and are on CPAP/BiPAP machine please bring it with you to the hospital. 9) DO NOT wear jewelry, body piercing, makeup, nail faroese, hairpins or contacts on the day of surgery. Leave all valuables and money with family members. Please leave your dentures with Family members if surgery is to done under General Anesthesia 10) IF you are undergoing an OUTPATIENT procedure (Ambulatory Surgery) you must have someone drive you home and stay with you for 24hrs. You cannot stay alone in a hotel room after outpatient surgery. Also, a it business analyst or cable mechanic cannot be made a responsible caregiver. Your surgery may be cancelled if you do not have someone take care of you for 24 hours. Jaimee Portillo APRN.MUKUND 01/05/2018 9:54 AM Addendum HISTORY AND PHYSICAL EXAMINATION SERVICE DATE: 01/05/2018 SERVICE TIME: 9:26 AM PRIMARY CARE PHYSICIAN: Levar Eubanks MD SURGEON: Dr. Vang ANESTHESIA: General DIAGNOSIS: Arthritis of first metatarsophalangeal (MTP) joint of right foot PROCEDURE: Abductor Hallucis Tenotomy Right 1st toe Subjective CHIEF COMPLAINT: Right painful first toe s/p remote bunionectomy HPI: This is a very pleasant 62 year old female who presents for PAT at request of Dr. Vang for 0730 case on 01/17/18 She states she had a bunionectomy on the right great toe ~13 years ago She feels they over corrected it and she has experienced intermittent aching to sore pain in the toe, worse with shoegear, increasingly worse over the last few years due to her arthritis. 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 Maintains on prednisone and imuran. 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; on prednisone, imuran - Malignant neoplasm of breast (female), unspecified site Breast cancer, left PAST SURGICAL HISTORY Procedure Laterality Date - APPENDECTOMY - BREAST BIOPSY 02/06/2015 Left breast - CARPAL TUNNEL RIGHT WRIST 05/2009 - CORRECT BUNION,SIMPLE Bunion, bilateral - HYSTERECTOMY HX 2007 laparoscopic and vaginal total hysterectomy - KNEE SCOPE,DIAGNOSTIC Arthroscopy, knee- left - MASTEC PARTIAL W AXILL NODE REMOV 07-06-06 sentinel node biopsy, left - PAST SURGICAL HISTORY OF 2006 Left lumpectomy - PAST SURGICAL HISTORY OF 02/2011 Carpal tunnel decomp left wrist - PAST SURGICAL HISTORY OF 07/2010 abdominoplasty;left breast reconstruction, right breast mastopexy - PAST SURGICAL HISTORY OF 11/2011 breast reconstruction left - PAST SURGICAL HISTORY OF 03/2015 Right foot - REMOVAL OF TONSILS,<12 Y/O Tonsillectomy - REPAIR INCISIONAL HERNIA,REDUCIBLE 1998 abdominal FAMILY HISTORY Problem Relation Age of Onset - Breast Cancer Mother 67 - Colon Cancer Mother - Breast Cancer Sister 46 - Breast Cancer Paternal Grandmother 75 - Breast Cancer Maternal Aunt 57 - Breast Cancer Maternal Aunt 55 - Arthritis Father Gout - Cancer Other First cousin; lymphoma. Social History Substance Use Topics - Smoking status: Former Smoker Packs/day: 1.00 Years: 10.00 Types: Cigarettes Quit date: 08/20/1979 - Smokeless tobacco: Never Used - Alcohol use 0.0 oz/week Comment: About one serving per month Prior to Admission medications as of 12/28/17 1006 Medication Sig Last Dose Taking OMEPRAZOLE ORAL Take 20 mg by mouth. Taking predniSONE (DELTASONE) 1 mg tablet Take 4mg/day azaTHIOprine (IMURAN) 50 mg tablet Take 4 tablets by mouth once daily. traMADol (ULTRAM) 50 mg tablet Take 1 tablet by mouth once daily as needed. Taking BiotaGen capsules (Klaire/Prothera) 4 capsules once daily Taking Glutathione (SpoonRocket) 8 pumps twice daily Taking Magnesium Citrate 150mg 90 ct[address] (Pure Encapsulations) Take 3 capsules daily at night Taking B-Complex Plus (Pure Encapsulations) Take 1 capsule by mouth daily with food. Taking CurcumaSorb (Pure Encapsulations) 2?-3 capsules daily between meals Taking LACTOBACILLUS COMBINATION NO.8 (ADULT PROBIOTIC ORAL) Take by mouth. Taking ACETAMINOPHEN/DIPHENHYDRAMINE (TYLENOL PM ORAL) Take 1 tablet by mouth daily at bedtime. Taking Diclofenac Sodium (VOLTAREN) 1 % gel Apply moderate amount to painful areas on hands (2g) up to four times daily as needed. Don't exceed a total of 32g daily. Taking turmeric root extract 500 mg cap Take by mouth once daily. Taking Cholecalciferol, Vitamin D3, (VITAMIN D) 1,000 unit ORAL Tab Take one(1) tablet daily. Taking omega-3 fatty acids 1,000 mg ORAL Cap Take one(1) capsule daily. Taking ALLERGIES No Known Allergies COMPLETE REVIEW OF SYSTEMS: All systems reviewed and negative unless otherwise stated in the HPI. Objective PHYSICAL EXAM: MENTAL STATUS: alert, oriented to person, place and time HEENT: Normocephalic/atraumatic, pharynx clear LUNGS: Lungs clear to auscultation, even, unlabored CARDIAC: RRR, S1S2, no rubs, murmurs, or gallops ABDOMEN: Abdomen soft, non-tender, positive BSx4, No masses or organomegaly EXTREMITIES: +2 BLE pedal pulses, no clubbing, cyanosis, edema 0=0/10 01/05/18 0923 BP: 125/65 BP Site: Right Arm BP Position: Sitting Pulse: 70 Resp: 16 Temp: 36.3 ?C (97.4 ?F) SpO2: 98% Weight: 65.8 kg (145 lb) Height: 160 cm (5' 3) Body mass index is 25.69 kg/m?. Plan: 1) Arthritis of first metatarsophalangeal (MTP) joint of right foot - deferred to surgeon - pt instructions given. Pt verbalized understanding - PCP clearance obtained by Dr. Vang's office; please see telephone note 12/06/17 2) Antisynthetase syndrome - follows with pulm, rheumatology - on prednisone 4mg and imuran 200mg - pt has instructions to hold imuran for 1 week prior to procedure - she is asymptomatic from a cardiopulmonary stand point. - No recent CXR to review - lung diffusion capacity testing 03/22/17 IMPRESSION: Spirometry is normal. There is no significant bronchodilator response. Clinical improvement following bronchodilator therapy may occur even if there is no spirometric improvement. The TLC, RV and RV/TLC are normal. The diffusing capacity is normal. The diffusing capacity corrected for volume is normal. - normal PFTs per pulm note - she denies use of inhalers SIGNATURE: Jaimee Portillo APRN.MUKUND PATIENT NAME: Sylvia Ramirez DATE: January 05, 2018 TIME: 9:26 AM PAGER/CONTACT #: Referring Provider: ANTONIO VANG [[id number]] Allergies As of Date: 01/05/2018 (No Known Allergies) Date Reviewed: 01/05/2018 Reviewed by: Jaimee Sandoval (Mukund) Lindsey - Fully Assessed Reason for Visit: Toe Pain (Big) [1588] Cmt: right great toe Primary Visit Diagnosis:Preop examination [Z01.818] Prescriptions as of 01/05/2018 Sig: OMEPRAZOLE ORAL Take 20 mg by mouth. PREDNISONE 1 MG TABLET Take 4mg/day AZATHIOPRINE 50 MG TABLET Take 4 tablets by mouth once * TRAMADOL 50 MG TABLET Take 1 tablet by mouth once d* OTC NUTRITIONAL SUPPLEMENT 4 capsules once daily OTC NUTRITIONAL SUPPLEMENT 8 pumps twice daily OTC NUTRITIONAL SUPPLEMENT Take 3 capsules daily at night OTC NUTRITIONAL SUPPLEMENT Take 1 capsule by mouth daily* OTC NUTRITIONAL SUPPLEMENT 2?-3 capsules daily between m* ADULT PROBIOTIC ORAL Take by mouth. TYLENOL PM ORAL Take 1 tablet by mouth daily * DICLOFENAC 1 % TOPICAL GEL Apply moderate amount to pain* TURMERIC ROOT EXTRACT 500 MG * Take by mouth once daily. * CHOLECALCIFEROL (VITAMIN D3) * Take one(1) tablet daily. * OMEGA-3 FATTY ACIDS 1,000 MG * Take one(1) capsule daily. Problem List As Of Date 01/05/2018 Noted Resolved BREAST CANCER LOWER OUTER [C50.519] INVALID FOR* CERVICALGIA [M54.2] INVALID FOR* Constipation [K59.00] INVALID FOR* Localized adiposity [E65] INVALID FOR* Personal history of malignant neoplasm of breas*INVALID FOR* Antisynthetase syndrome [D89.89] INVALID FOR* ILD (interstitial lung disease) (HCC) [J84.9] INVALID FOR* High risk medication use [Z79.899] INVALID FOR* Heavy metal exposure [Z77.018] INVALID FOR* Acquired hallux varus of right foot [M20.31] INVALID FOR* More... Arthritis of first metatarsophalangeal (MTP) sheila*INVALID FOR* More... Long-term use of immunosuppressant medication [*INVALID FOR* Other instructions from your clinician: PATIENT INSTRUCTIONS FOR DAY OF SURGERY: Gordo Ramirez is scheduled for surgery at the [address] [address] Surgery Date: 01/17/18 Arrival Time: 0600 Surgeon: Dr. Vang Procedure: Abductor hallucis tenotomy right 1st toe Please read below carefully for your instructions. 1) Please bring with you any appointment folder / outside facility lab results 2) Do not eat or drink after midnight the day of your surgery (except morning medicines as listed below). Candy, mint and smoking are not permitted. If your surgery is in the afternoon, you may be allowed to drink water in the morning but this will be decided by your surgeon and communicated to you if it applies. Clear liquids may be taken until: N/A 3) STOP TAKING THESE MEDICATIONS prior to surgery: Aspirin - n/a NSAIDS - 7 days before surgery (aleve, motrin, ibuprofen, naproxen) Vitamin E - 10 to 14 days before surgery Mulitvitamins with Vit E - 10 to 14 days before surgery Herbal Medications/Diet pills - 10-14 days before surgery (NSAIDS include painkillers like Motrin, Aleve, Naprosyn, Mobic, Diclofenac, Ibuprofen) 4) Avoid NSAIDs for PAIN RELIEF. If needed you could take Tylenol on the day of surgery with sips of water. You may also use opiates prescribed by your physician which includes medications like percocet / vicodin / MS contin / Darvocet / Ultram 5) BLOOD THINNERS including coumadin, plavix and ticlid to be stopped as directed by surgeon / soundscriber mechanic 6) PATIENTS WITH DIABETES: Please check your blood sugar the day of surgery Please bring your glucometer and supplies with you Do not take oral diabetes medications on the day of surgery. Do not take byetta , symlin or any insulins on the day of surgery (lantus, Humalog, lispro, aspart etc). You may resume your medications after your procedure. If you see an head knitting machine fixer and have further questions about your insulin regimen, please contact them for further instructions 7) The following MEDICATIONS SHOULD BE TAKEN ON MORNING OF SURGERY with a few sips of water Omeprazole 8) FOR PATIENTS WITH ASTHMA /COPD Use your inhalers as prescribed / as needed on the day of surgery. Bring your inhalers with you to the hospital. If you have Obstructive Sleep Apnea and are on CPAP/BiPAP machine please bring it with you to the hospital. 9) DO NOT wear jewelry, body piercing, makeup, nail faroese, hairpins or contacts on the day of surgery. Leave all valuables and money with family members. Please leave your dentures with Family members if surgery is to done under General Anesthesia 10) IF you are undergoing an OUTPATIENT procedure (Ambulatory Surgery) you must have someone drive you home and stay with you for 24hrs. You cannot stay alone in a hotel room after outpatient surgery. Also, a it business analyst or cable mechanic cannot be made a responsible caregiver. Your surgery may be cancelled if you do not have someone take care of you for 24 hours. Encounter Status:Closed by LINDSEY, JAIMEE N RADIOLOGY ADMINISTRATOR on 01/05/18 PROGRESS Observed: 12/28/2017 Status: COMPLETED Source: [place] 10:30 AM [facility] [place] REPOSITORY HNO ID: [id number] Author: Robert Orr) Carlos Service: (none) Author Type: Physician Type: Progress Notes Filed: 12/28/2017 10:57 AM Note Text: On 12/28/2017, I had the pleasure of seeing Sylvia Ramirez at the [facility] for follow-up of anti-synthetase syndrome on AZA. HPI: To review, Sylvia Ramirez is a 62 year old female - In October, noted onset of wrist swelling. Found to have a +PATRICK - In Jan, seen by outside rheumatology with joint pain and finger rash. Diagnosed with inflammatory arthritis. Started on MTX but stopped by patient 2 weeks laters - In Mar, developed joint stiffness so MTX restarted - In early Apr, MTX stopped due to elevated LFTs - In late Apr, established care with Dr. Fitzpatrick in [facility] with joint pain, myalgias, and rash. Labs with CK 1726, +PATRICK, and +Sheila-1. 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 - In May, started on MTX 20mg PO weekly - In July, symptoms and lab worsening. MTX stopped. Indeterminate TB so eventually saw ID and cleared to resume immunosuppression. - In September, started imuran - In Dec, reported improved symptoms but with some wrist pain and swelling. Dr. Fitzpatrick has been cautious with imuran dosage increases given hx of breast cancer. No medication changes made. - On May 15, 2014 found to have higher CK 1400<370. Dr. Fitzpatrick increased to imuran 200mg daily and started prednisone taper with plans to recheck labs 4 weeks later. - In late Apr, reported improved stiffness in PIPs and DIPs. With slight rash over distal fingertips. Was on prednisone 15mg daily with plans for taper by 5mg weekly. No muscle weakness. - In July, reported feeling well. Baseline aches in joints and muscles. Rash stable. Off prednisone, last dose in May. AZA 200mg/day continued - In Nov, placed on pred 10mg/day given high CK - In Mar, reported feeling well w/o any joint or muscle pain. No weakness or rash. - In early May, CK ~4000 although she felt well. Advised consideration of rituxan. She opted for prednisone 40mg with taper to 5mg/day. - June, had episode of cellulitis over L arm. Held AZA x8-9 days, restarted on 07/14/14 - In July, reported no muscle pain or weakness on pred 5mg/day x2 weeks. - In September, decreased to pred 4mg/day - In mid-Nov, alternated pred 4mg/5mg qod - In Dec, reported feeling well. - In Apr, reported feeling well on pred 5mg/day. Decreased to pred 4mg and 5mg alternating qod - In June, elevated CK to 2987 with increased weakness. Increased to prednisone 10mg/day. Adding rituxan was discussed, but deferred given subsequent improvement - In interim, started on prolia - In Nov, reported feeling well on pred 5mg/day. - In early Feb, increased to pred 20mg/day with taper to 5mg/day per PCP for flare involving wrist swelling. CK 900s - In Apr, reported feeling well. - In June, CK 1400s. Discussed starting rituxan - In August, reported feeling well - Today, reports feeling well. - Would like to take grandson to [facility] next year PAST MEDICAL HISTORY Diagnosis Date - Malignant neoplasm of breast (female), unspecified site Breast cancer, left PAST SURGICAL HISTORY Procedure Laterality Date - APPENDECTOMY - BREAST BIOPSY 02/06/2015 Left breast - CARPAL TUNNEL RIGHT WRIST 05/2009 - CORRECT BUNION,SIMPLE Bunion, bilateral - HYSTERECTOMY HX 2007 laparoscopic and vaginal total hysterectomy - KNEE SCOPE,DIAGNOSTIC Arthroscopy, knee- left - MASTEC PARTIAL W AXILL NODE REMOV 07-06-06 sentinel node biopsy, left - PAST SURGICAL HISTORY OF 2006 Left lumpectomy - PAST SURGICAL HISTORY OF 02/2011 Carpal tunnel decomp left wrist - PAST SURGICAL HISTORY OF 07/2010 abdominoplasty;left breast reconstruction, right breast mastopexy - PAST SURGICAL HISTORY OF 11/2011 breast reconstruction left - PAST SURGICAL HISTORY OF 03/2015 Right foot - REMOVAL OF TONSILS,<12 Y/O Tonsillectomy - REPAIR INCISIONAL HERNIA,REDUCIBLE 1998 abdominal Review of patient's allergies indicates: No Known Allergies MEDICATIONS: Current Outpatient Prescriptions: OMEPRAZOLE ORAL Take 20 mg by mouth. predniSONE (DELTASONE) 1 mg tablet Take 5mg/day azaTHIOprine (IMURAN) 50 mg tablet TAKE 4 TABLETS BY MOUTH DAILY traMADol (ULTRAM) 50 mg tablet Take 1 tablet by mouth once daily as needed. BiotaGen capsules (Klaire/Prothera) 4 capsules once daily Glutathione (SpoonRocket) 8 pumps twice daily Magnesium Citrate 150mg [address] ct[address] (Pure Encapsulations) Take 3 capsules daily at night B-Complex Plus (Pure Encapsulations) Take 1 capsule by mouth daily with food. CurcumaSorb (Pure Encapsulations) 2?-3 capsules daily between meals LACTOBACILLUS COMBINATION NO.8 (ADULT PROBIOTIC ORAL) Take by mouth. ACETAMINOPHEN/DIPHENHYDRAMINE (TYLENOL PM ORAL) Take 1 tablet by mouth daily at bedtime. Diclofenac Sodium (VOLTAREN) 1 % gel Apply moderate amount to painful areas on hands (2g) up to four times daily as needed. Don't exceed a total of 32g daily. turmeric root extract 500 mg cap Take by mouth once daily. Cholecalciferol, Vitamin D3, (VITAMIN D) 1,000 unit ORAL Tab Take one(1) tablet daily. omega-3 fatty acids 1,000 mg ORAL Cap Take one(1) capsule daily. No current facility-administered medications for this visit. FAMILY HISTORY Problem Relation Age of Onset - Breast Cancer Mother 67 - Colon Cancer Mother - Breast Cancer Sister 46 - Breast Cancer Paternal Grandmother 75 - Breast Cancer Maternal Aunt 57 - Breast Cancer Maternal Aunt 55 - Arthritis Father Gout - Cancer Other First cousin; lymphoma. SOCIAL HISTORY: Lives in [place]. 2 kids and 1 grandson Davis (in [place]) who is turned 4 in June. Son is PT in [place], son-in-law who is local is mechanical manufacturing technician. Tobacco Use: 1 pack/day, for 10 years. Quit 08/20/1979. Types: Cigarettes Alcohol Use: Approximately 0 oz/week (About one serving per month ) REVIEW OF SYSTEMS: Reviewed 02/06 systems, as above and as below: RESPIRATORY: Chronic cough MUSCULOSKELETAL: Joint pain, Joint swelling, Morning stiffness in joints ALLERGIC/ IMMUNOLOGIC: Allergies (other than medications) PHYSICAL EXAM: VITALS: Blood pressure 120/72, pulse 76, temperature 36.7 ?C (98.1 ?F), temperature source Oral, height 161.3 cm (5' 3.5), weight 66.7 kg (147 lb). CONSTITUTIONAL: Well-appearing, in NAD. SKIN: No rash. No alopecia. No sclerodactyly, calcinosis, telangiectasias, digitial ulcers, or skin thickening. EYES: No scleral icterus or conjunctivitis, PERRLA. ENT and Mouth: External ears normal. Nares normal. Mucous membranes normal. Oropharynx normal. NECK: No lymphadenopathy RESPIRATORY: Normal breath sounds, no significant crackles CARDIOVASCULAR: Regular rate and rhythm, no murmurs or rubs GASTROENTEROLOGY: Normal bowel sounds. Abdomen is soft and non-tender. EXTREMITIES/LYMPH: No edema bilaterally NEURO: Awake, alert and oriented, normal gait, strength 5/5 intact over upper and lower extremity muscles bilaterally MUSCULOSKELETAL: JOINT APPEARANCE: With Heberden's and Anam's nodes. No erythema or warmth of any upper or lower extremity joint. RANGE OF MOTION: Able to fully close fists bilaterally. SWOLLEN JOINTS/SYNOVITIS: No synovitis TENDER JOINTS: None LABORATORY: *12/06/17 high CK 425 and low wbc 3.5 with unremarkable hgb, plt, Cr, LFTs *08/23/17 high CK 909, low wbc 3.5 (4.4-11), and high AST 44 with unremarkable hgb, plt, cr, and alt *06/18/17 high CK 1418 *03/23/17 high AST 49 and high ck 924 with unremarkable wbc, hgb, plt, alt, and cr *12/17/16 high CK 1800s *10/08/16 high CK 1661 with wbc 5.2, hgb 13.3, plt 210, cr 0.4, alt 54 and ast 58 (ULN 37) *08/26/16 high ESR 39 (ULN 30), high CRP 4.67 (ULN 3), and unremarkable hep a/b/c (+hep A total with neg IgM indicating immunity) *05/13/16 High CK 1840 (ULN 192) and high AST 76 (37) with unremarkable wbc, hgb, p, cr, and ALT *Mar high CK 1210 *01/22/16 TA bx negative for GCA, with mild intimal hyperplasia. Steroids getting weaned by PCP *01/10/16 outside labs: high ESR 79 and CRP 192 with unremarkable CBC Component Latest Ref Rng 06/25/2015 07/16/2015 08/09/2015 09/17/2015 10/18/2015 11/15/2015 12/10/2015 CK 30 - 220 U/L 1216 (H) 1522 (H) 2111 (H) 1787 (H) 1315 (H) 1733 (H) 1587 (H) Component Latest Ref Rng 06/12/2014 07/10/2014 08/07/2014 CK 30 - 220 U/L 1405 (H) 1124 (H) 909 (H) WSR 0 - 15 mm/hr 11 15 CRP 0.0 - 1.0 mg/dL 0.8 0.7 Sm Antibody <1.0 AI <0.2 PILE DRIVER OPERATOR BARGE MOUNTED Antibody <1.0 AI <0.2 SSA Antibody <1.0 AI <0.2 SSB Antibody <1.0 AI <0.2 Centromere Ab <1.0 AI <0.2 Scleroderma Ab, IgG <1.0 AI <0.2 Sheila 1 Antibody <1.0 AI >8.0 (H) Ribosomal PILE DRIVER OPERATOR BARGE MOUNTED <1.0 AI <0.2 Chromatin Antibody <1.0 AI <0.2 Bilirubin, Conjug 0.0 - 0.4 mg/dL 0.1 CRP 0.0 - 1.0 mg/dL 2.5 (H) WSR 0 - 15 mm/hr 20 (H) CCP Antibody, IgG <20 Units <15 PATRICK by EIA <1.5 OD Ratio 5.0 (H) Aldolase 1.5 - 8.1 U/L 40.9 (H) Myoglobin, Serum 30 - 90 ng/mL 632 (H) CK 30 - 220 U/L 1726 (H) STUDIES: *Feb PFTs- unremarkable *Jan/Feb outside DEXA- osteoporosis, L fem neck t-score -2.5 *Jan outside DEXA- reportedly with osteopenia *Jan PFTs- IMPRESSION: Small airway obstruction. Normal total lung capacity. Normal gas exchange. 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 Elevated CK but stable. Of note, with personal hx of breast cancer. - Continue imuran 200mg daily along with routine lab monitoring every 4-6 weeks. Standing lab orders renewed, printed and signed for outside lab. Notify of results via MyChart - Decrease to prednisone 4mg - Continue pulmonary follow-up, reminded to schedule - Advised in past that if CK level significantly increases in future again, would advise treatment modification with addition of rituxan. R/B/A discussed, printed information on medication provided for review in past - Continue tramadol (last filled in Nov) 2. Finger pain: Likely OA - Continue voltaren gel prn - Continue tylenol prn 3. Osteopenia: Per Jan DEXA. Had not resumed boniva. - Continue prolia via another provider - Continue ca and vit D - Check DEXA in Jan 4. Leukopenia: Likely due to recent infection and antibiotic use. - Recheck CBC with diff in 2 weeks. Printed and signed order provided 5. General health maintenance: - Advised to continue follow-up with PCP for routine health maintenance and malignancy screening Follow-up in 4 months. Patient was instructed to call if any questions or concerns. Thank you for allowing me to participate in the care of your patient. Robert Nesbitt MD CNOV Observed: 12/28/2017 Status: COMPLETED Source: [place] 10:20 AM [facility] REPOSITORY Office Visit ([facility]) SYLVIA RAMIREZ ([id number]) 1955 F T Date Time Provider Department 12/28/17 10:20 AM ROBERT NESBITT) [place] During your visit today, we recorded the following information about you: Temperature Pulse Blood pressure Weight 98.1 degrees 76/minute 120/72 66.7 kg Height 1.613 m Robert Nesbitt MD 12/28/2017 10:57 AM Signed On 12/28/2017, I had the pleasure of seeing Sylvia Ramirez at the [facility] for follow-up of anti-synthetase syndrome on AZA. HPI: To review, Sylvia Ramirez is a 62 year old female - In October, noted onset of wrist swelling. Found to have a +PATRICK - In Jan, seen by outside rheumatology with joint pain and finger rash. Diagnosed with inflammatory arthritis. Started on MTX but stopped by patient 2 weeks laters - In Mar, developed joint stiffness so MTX restarted - In early Apr, MTX stopped due to elevated LFTs - In late Apr, established care with Dr. Fitzpatrick in [facility] with joint pain, myalgias, and rash. Labs with CK 1726, +PATRICK, and +Sheila-1. 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 - In May, started on MTX 20mg PO weekly - In July, symptoms and lab worsening. MTX stopped. Indeterminate TB so eventually saw ID and cleared to resume immunosuppression. - In September, started imuran - In Dec, reported improved symptoms but with some wrist pain and swelling. Dr. Fitzpatrick has been cautious with imuran dosage increases given hx of breast cancer. No medication changes made. - On May 15, 2014 found to have higher CK 1400<370. Dr. Fitzpatrick increased to imuran 200mg daily and started prednisone taper with plans to recheck labs 4 weeks later. - In late Apr, reported improved stiffness in PIPs and DIPs. With slight rash over distal fingertips. Was on prednisone 15mg daily with plans for taper by 5mg weekly. No muscle weakness. - In July, reported feeling well. Baseline aches in joints and muscles. Rash stable. Off prednisone, last dose in May. AZA 200mg/day continued - In Nov, placed on pred 10mg/day given high CK - In Mar, reported feeling well w/o any joint or muscle pain. No weakness or rash. - In early May, CK ~4000 although she felt well. Advised consideration of rituxan. She opted for prednisone 40mg with taper to 5mg/day. - June, had episode of cellulitis over L arm. Held AZA x8-9 days, restarted on 07/14/14 - In July, reported no muscle pain or weakness on pred 5mg/day x2 weeks. - In September, decreased to pred 4mg/day - In mid-Nov, alternated pred 4mg/5mg qod - In Dec, reported feeling well. - In Apr, reported feeling well on pred 5mg/day. Decreased to pred 4mg and 5mg alternating qod - In June, elevated CK to 2987 with increased weakness. Increased to prednisone 10mg/day. Adding rituxan was discussed, but deferred given subsequent improvement - In interim, started on prolia - In Nov, reported feeling well on pred 5mg/day. - In early Feb, increased to pred 20mg/day with taper to 5mg/day per PCP for flare involving wrist swelling. CK 900s - In Apr, reported feeling well. - In June, CK 1400s. Discussed starting rituxan - In August, reported feeling well - Today, reports feeling well. - Would like to take grandson to [facility] next year PAST MEDICAL HISTORY Diagnosis Date - Malignant neoplasm of breast (female), unspecified site Breast cancer, left PAST SURGICAL HISTORY Procedure Laterality Date - APPENDECTOMY - BREAST BIOPSY 02/06/2015 Left breast - CARPAL TUNNEL RIGHT WRIST 05/2009 - CORRECT BUNION,SIMPLE Bunion, bilateral - HYSTERECTOMY HX 2007 laparoscopic and vaginal total hysterectomy - KNEE SCOPE,DIAGNOSTIC Arthroscopy, knee- left - MASTEC PARTIAL W AXILL NODE REMOV 07-06-06 sentinel node biopsy, left - PAST SURGICAL HISTORY OF 2006 Left lumpectomy - PAST SURGICAL HISTORY OF 02/2011 Carpal tunnel decomp left wrist - PAST SURGICAL HISTORY OF 07/2010 abdominoplasty;left breast reconstruction, right breast mastopexy - PAST SURGICAL HISTORY OF 11/2011 breast reconstruction left - PAST SURGICAL HISTORY OF 03/2015 Right foot - REMOVAL OF TONSILS,<12 Y/O Tonsillectomy - REPAIR INCISIONAL HERNIA,REDUCIBLE 1998 abdominal Review of patient's allergies indicates: No Known Allergies MEDICATIONS: Current Outpatient Prescriptions: OMEPRAZOLE ORAL Take 20 mg by mouth. predniSONE (DELTASONE) 1 mg tablet Take 5mg/day azaTHIOprine (IMURAN) 50 mg tablet TAKE 4 TABLETS BY MOUTH DAILY traMADol (ULTRAM) 50 mg tablet Take 1 tablet by mouth once daily as needed. BiotaGen capsules (Klaire/Prothera) 4 capsules once daily Glutathione (SpoonRocket) 8 pumps twice daily Magnesium Citrate 150mg [address] ct[address] (Pure Encapsulations) Take 3 capsules daily at night B-Complex Plus (Pure Encapsulations) Take 1 capsule by mouth daily with food. CurcumaSorb (Pure Encapsulations) 2?-3 capsules daily between meals LACTOBACILLUS COMBINATION NO.8 (ADULT PROBIOTIC ORAL) Take by mouth. ACETAMINOPHEN/DIPHENHYDRAMINE (TYLENOL PM ORAL) Take 1 tablet by mouth daily at bedtime. Diclofenac Sodium (VOLTAREN) 1 % gel Apply moderate amount to painful areas on hands (2g) up to four times daily as needed. Don't exceed a total of 32g daily. turmeric root extract 500 mg cap Take by mouth once daily. Cholecalciferol, Vitamin D3, (VITAMIN D) 1,000 unit ORAL Tab Take one(1) tablet daily. omega-3 fatty acids 1,000 mg ORAL Cap Take one(1) capsule daily. No current facility-administered medications for this visit. FAMILY HISTORY Problem Relation Age of Onset - Breast Cancer Mother 67 - Colon Cancer Mother - Breast Cancer Sister 46 - Breast Cancer Paternal Grandmother 75 - Breast Cancer Maternal Aunt 57 - Breast Cancer Maternal Aunt 55 - Arthritis Father Gout - Cancer Other First cousin; lymphoma. SOCIAL HISTORY: Lives in [place]. 2 kids and 1 grandson Davis (in [place]) who is turned 4 in June. Son is PT in [place], son-in-law who is local is mechanical manufacturing technician. Tobacco Use: 1 pack/day, for 10 years. Quit 08/20/1979. Types: Cigarettes Alcohol Use: Approximately 0 oz/week (About one serving per month ) REVIEW OF SYSTEMS: Reviewed 02/06 systems, as above and as below: RESPIRATORY: Chronic cough MUSCULOSKELETAL: Joint pain, Joint swelling, Morning stiffness in joints ALLERGIC/ IMMUNOLOGIC: Allergies (other than medications) PHYSICAL EXAM: VITALS: Blood pressure 120/72, pulse 76, temperature 36.7 ?C (98.1 ?F), temperature source Oral, height 161.3 cm (5' 3.5), weight 66.7 kg (147 lb). CONSTITUTIONAL: Well-appearing, in NAD. SKIN: No rash. No alopecia. No sclerodactyly, calcinosis, telangiectasias, digitial ulcers, or skin thickening. EYES: No scleral icterus or conjunctivitis, PERRLA. ENT and Mouth: External ears normal. Nares normal. Mucous membranes normal. Oropharynx normal. NECK: No lymphadenopathy RESPIRATORY: Normal breath sounds, no significant crackles CARDIOVASCULAR: Regular rate and rhythm, no murmurs or rubs GASTROENTEROLOGY: Normal bowel sounds. Abdomen is soft and non-tender. EXTREMITIES/LYMPH: No edema bilaterally NEURO: Awake, alert and oriented, normal gait, strength 5/5 intact over upper and lower extremity muscles bilaterally MUSCULOSKELETAL: JOINT APPEARANCE: With Heberden's and Anam's nodes. No erythema or warmth of any upper or lower extremity joint. RANGE OF MOTION: Able to fully close fists bilaterally. SWOLLEN JOINTS/SYNOVITIS: No synovitis TENDER JOINTS: None LABORATORY: *12/06/17 high CK 425 and low wbc 3.5 with unremarkable hgb, plt, Cr, LFTs *08/23/17 high CK 909, low wbc 3.5 (4.4-11), and high AST 44 with unremarkable hgb, plt, cr, and alt *06/18/17 high CK 1418 *03/23/17 high AST 49 and high ck 924 with unremarkable wbc, hgb, plt, alt, and cr *12/17/16 high CK 1800s *10/08/16 high CK 1661 with wbc 5.2, hgb 13.3, plt 210, cr 0.4, alt 54 and ast 58 (ULN 37) *08/26/16 high ESR 39 (ULN 30), high CRP 4.67 (ULN 3), and unremarkable hep a/b/c (+hep A total with neg IgM indicating immunity) *05/13/16 High CK 1840 (ULN 192) and high AST 76 (37) with unremarkable wbc, hgb, p, cr, and ALT *Mar high CK 1210 *01/22/16 TA bx negative for GCA, with mild intimal hyperplasia. Steroids getting weaned by PCP *01/10/16 outside labs: high ESR 79 and CRP 192 with unremarkable CBC Component Latest Ref Rng 06/25/2015 07/16/2015 08/09/2015 09/17/2015 10/18/2015 11/15/2015 12/10/2015 CK 30 - 220 U/L 1216 (H) 1522 (H) 2111 (H) 1787 (H) 1315 (H) 1733 (H) 1587 (H) Component Latest Ref Rng 06/12/2014 07/10/2014 08/07/2014 CK 30 - 220 U/L 1405 (H) 1124 (H) 909 (H) WSR 0 - 15 mm/hr 11 15 CRP 0.0 - 1.0 mg/dL 0.8 0.7 Sm Antibody <1.0 AI <0.2 PILE DRIVER OPERATOR BARGE MOUNTED Antibody <1.0 AI <0.2 SSA Antibody <1.0 AI <0.2 SSB Antibody <1.0 AI <0.2 Centromere Ab <1.0 AI <0.2 Scleroderma Ab, IgG <1.0 AI <0.2 Sheila 1 Antibody <1.0 AI >8.0 (H) Ribosomal PILE DRIVER OPERATOR BARGE MOUNTED <1.0 AI <0.2 Chromatin Antibody <1.0 AI <0.2 Bilirubin, Conjug 0.0 - 0.4 mg/dL 0.1 CRP 0.0 - 1.0 mg/dL 2.5 (H) WSR 0 - 15 mm/hr 20 (H) CCP Antibody, IgG <20 Units <15 PATRICK by EIA <1.5 OD Ratio 5.0 (H) Aldolase 1.5 - 8.1 U/L 40.9 (H) Myoglobin, Serum 30 - 90 ng/mL 632 (H) CK 30 - 220 U/L 1726 (H) STUDIES: *Feb PFTs- unremarkable *Jan/Feb outside DEXA- osteoporosis, L fem neck t-score -2.5 *Jan outside DEXA- reportedly with osteopenia *Jan PFTs- IMPRESSION: Small airway obstruction. Normal total lung capacity. Normal gas exchange. 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 Elevated CK but stable. Of note, with personal hx of breast cancer. - Continue imuran 200mg daily along with routine lab monitoring every 4-6 weeks. Standing lab orders renewed, printed and signed for outside lab. Notify of results via MyChart - Decrease to prednisone 4mg - Continue pulmonary follow-up, reminded to schedule - Advised in past that if CK level significantly increases in future again, would advise treatment modification with addition of rituxan. R/B/A discussed, printed information on medication provided for review in past - Continue tramadol (last filled in Nov) 2. Finger pain: Likely OA - Continue voltaren gel prn - Continue tylenol prn 3. Osteopenia: Per Jan DEXA. Had not resumed boniva. - Continue prolia via another provider - Continue ca and vit D - Check DEXA in Jan 4. Leukopenia: Likely due to recent infection and antibiotic use. - Recheck CBC with diff in 2 weeks. Printed and signed order provided 5. General health maintenance: - Advised to continue follow-up with PCP for routine health maintenance and malignancy screening Follow-up in 4 months. Patient was instructed to call if any questions or concerns. Thank you for allowing me to participate in the care of your patient. Robert Nesbitt MD Referring Provider: ROBERT NESBITT) [[id number]] Allergies As of Date: 12/28/2017 (No Known Allergies) Date Reviewed: 12/28/2017 Reviewed by: Nadine Brooks Ma - Fully Assessed Reason for Visit: Established Patient [175] Primary Visit Diagnosis: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] Other Visit Diagnoses:ILD (interstitial lung disease) ([facility]) [J84.9] Long-term use of immunosuppressant medication [Z79.899] Leukopenia, unspecified type [D72.819] Order(s):predniSONE (DELTASONE) 1 mg tabletTake 4mg/dayDisp: 120 tabletRfl: 2 azaTHIOprine (IMURAN) 50 mg tabletTake 4 tablets by mouth once daily.Disp: 120 tabletRfl: 0 CBC + DIFF [SQCBCDIF] Order #: [id number] FUTURE CREATININE BLD [SQCRET] Order #: [id number] FUTURE HEPATIC FUNCTION PNL [SQHFP] Order #: [id number] FUTURE CK CREATINE KINASE [SQCK] Order #: [id number] FUTURE Prescriptions as of 12/28/2017 Sig: OMEPRAZOLE ORAL Take 20 mg by mouth. PREDNISONE 1 MG TABLET Take 4mg/day AZATHIOPRINE 50 MG TABLET Take 4 tablets by mouth once * TRAMADOL 50 MG TABLET Take 1 tablet by mouth once d* OTC NUTRITIONAL SUPPLEMENT 4 capsules once daily OTC NUTRITIONAL SUPPLEMENT 8 pumps twice daily OTC NUTRITIONAL SUPPLEMENT Take 3 capsules daily at night OTC NUTRITIONAL SUPPLEMENT Take 1 capsule by mouth daily* OTC NUTRITIONAL SUPPLEMENT 2?-3 capsules daily between m* ADULT PROBIOTIC ORAL Take by mouth. TYLENOL PM ORAL Take 1 tablet by mouth daily * DICLOFENAC 1 % TOPICAL GEL Apply moderate amount to pain* TURMERIC ROOT EXTRACT 500 MG * Take by mouth once daily. * CHOLECALCIFEROL (VITAMIN D3) * Take one(1) tablet daily. * OMEGA-3 FATTY ACIDS 1,000 MG * Take one(1) capsule daily. Problem List As Of Date 12/28/2017 Noted Resolved BREAST CANCER LOWER OUTER [C50.519] INVALID FOR* CERVICALGIA [M54.2] INVALID FOR* Constipation [K59.00] INVALID FOR* Localized adiposity [E65] INVALID FOR* Personal history of malignant neoplasm of breas*INVALID FOR* Antisynthetase syndrome [D89.89] INVALID FOR* ILD (interstitial lung disease) (HCC) [J84.9] INVALID FOR* High risk medication use [Z79.899] INVALID FOR* Heavy metal exposure [Z77.018] INVALID FOR* Acquired hallux varus of right foot [M20.31] INVALID FOR* More... Arthritis of first metatarsophalangeal (MTP) sheila*INVALID FOR* More... Long-term use of immunosuppressant medication [*INVALID FOR* Prescriptions ordered this encounter Disp Refills Start End PREDNISONE 1 MG TABLET 120 * 2 12/28/2017 Sig: Take 4mg/day AZATHIOPRINE 50 MG TABLET 120 * 0 12/28/2017 Route: ORAL Sig: Take 4 tablets by mouth once daily. Medications Discontinued During This Encounter OTC NUTRITIONAL SUPPLEMENT 12/28/2017 Class: Historical Med Sig: once daily. Immune activator [address] Disc: Reason for discontinue is not on file. Hepato-Thera Forte (Klaire/Prothera) 2 12/05/2015 12/28/2017 Class: OTC Route: ORAL Sig: Take 1 capsule by mouth daily at bedtime. Patient not taking: Reported on 12/28/2017 Disc: Reason for discontinue is not on file. PureGenomics Multivitamin (Pure Enca* 5 12/05/2015 12/28/2017 Class: OTC Route: ORAL Sig: Take 1 capsule by mouth daily with food. Disc: Reason for discontinue is not on file. PEC,CITRUS/INOSITOL/VIT C/SOYB (FIFI* 12/28/2017 Class: Historical Med Route: ORAL Sig: Take by mouth. Disc: Reason for discontinue is not on file. IRON FUM,PS CMP/VIT C/NIACIN (INTEGR* 12/28/2017 Class: Historical Med Route: ORAL Sig: Take by mouth. Disc: Reason for discontinue is not on file. PEPSIN/BETAINE HCL (PEPSIN-BETAINE O* 12/28/2017 Class: Historical Med Route: ORAL Sig: Take by mouth. Disc: Reason for discontinue is not on file. MULTIVITAMIN,THER AND MINERALS (KEVIN* 12/28/2017 Class: Historical Med Route: ORAL Sig: Take by mouth. Disc: Reason for discontinue is not on file. predniSONE (DELTASONE) 1 mg tablet 150 * 0 12/03/2017 12/28/2017 Sig: Take 5mg/day Disc: Reason for discontinue is not on file. azaTHIOprine (IMURAN) 50 mg tablet 120 * 0 11/02/2017 12/28/2017 Cmt: This prescription was filled on 11/02/2017. Any refills authorized will be placed on file. Sig: TAKE 4 TABLETS BY MOUTH DAILY Disc: Reason for discontinue is not on file. Disposition: Return in about 4 months (around 04/29/2018). Follow-up and Disposition History Recorded Encounter Status:Closed by ROBERT NESBITT MD on 12/28/17 EMERGENCY DEPARTMENT Observed: 11/30/2017 Status: F Source: [place] SUMMARY 9:37 AM [facility] REPOSITORY [facility] Medical Records Department [address] [place] [address] Emergency Department Summary 11/30/17 0934 MR#: [id number] Acct: [id number] Name: SYLVIA RAMIREZ Rep #: [id number] : 1955 62 From: Eliezer Ojeda DO PCP: Levar Eubanks MD Status: REG ER - ER Visit Summary Date of Service: 11/30/17 Chief Complaint: [] History of Present Illness: The patient is a 62 F [] Physical Examination: [] Test Results: [] Emergency Department Course and Treatment: [] Treatment Plan: [] Disposition: [] Impression: [] This note was generated with Netrada dictation software. It may contain incorrect words, spelling, and punctuation that were not noted in review of the chart prior to signing ED Disposition - Plan for ED Patient: Disposition: Home or Assisted Living Chief Complaint: Abd Pain Diagnosis: Right upper quadrant abdominal pain of unknown etiology Instructions: ED Abdominal Pain Unkn Cause Prescriptions: Hydrocodone Bitart/Apap 5-325 [Amite 5MG-325MG] 1 tab PO Q6H PRN PRN 3 Days #10 tab PRN Reason: Pain Omeprazole [Prilosec] 20 mg PO DAILY #30 cap Referrals: Levar Eubanks MD [Primary Care Provider] - What to do if you have Problems For any increased pain, shortness of breath, bleeding, nausea or vomiting, chest pain, or any unexpected problems, contact your Primary Care Provider. Call [facility] ([phone]) or report to the closest Emergency Room. Call 911 if necessary. 11/30/17 0937 <Electronically signed by Eliezer Ojeda DO> Date Eliezer Ojeda DO Cosigner Signature (If Indicated): Date CC: Levar Eubanks MD EMERGENCY DEPARTMENT Observed: 11/30/2017 Status: F Source: [place] SUMMARY 9:34 AM [facility] REPOSITORY [facility] Medical Records Department [address] [place] [address] Emergency Department Summary 11/30/17 0417 MR#: [id number] Acct: [id number] Name: SYLVIA RAMIREZ Rep #: [id number] : 1955 62 From: Bladimir Parikh MD PCP: Levar Eubanks MD Status: REG ER ADDENDUM by Eliezer Ojeda DO on 11/30/17 at 0934 Care of the patient was turned over to me at 7 AM. Right upper quadrant ultrasound was obtained and was normal. Patient was given a prescription for Prilosec and a short course of Amite. Patient was instructed to follow-up with her primary care physician in 3-5 days. Patient understood and was agreeable with the plan. All questions were answered. Date Eliezer Ojeda DO cc: Levar Eubanks MD * Signed - ER Visit Summary [...] was given option of staying until the staking engineer presents in the morning for ultrasound or [...] and vomiting This note was generated with Netrada dictation software. It may contain incorrect words, spelling, and punctuation that were not noted in review of the chart prior to signing ED Disposition - Plan for ED Patient: Chief Complaint: Abd Pain Referrals: Levar Eubanks MD [Primary Care Provider] - What to do if you have Problems For any increased pain, shortness of breath, bleeding, nausea or vomiting, chest pain, or any unexpected problems, contact your Primary Care Provider. Call [facility] ([phone]) or report to the closest Emergency Room. Call 911 if necessary. 11/30/17 0702 <Electronically signed by Bladimir Parikh MD> Date Bladimir Parikh MD Cosigner Signature (If Indicated): Date CC: Levar Eubanks MD GALLBLADDER Observed: 11/30/2017 Status: F Source: [place] 4:13 AM [facility]POS[facility]ORY [facility] Imaging Services [address] [place] [address] Gallbladder MR#: [id number] Acct: [id number] Name: SYLVIA RAMIREZ Rep #: [id number] : 1955 F 62 From: Joseph Tony DO PCP: Levar Eubanks MD Status: REG ER Study: Gallbladder Date of Exam: 11/30/17 Exam# [id number] Ordering Dr: Bladimir Parikh MD STUDY: ABDOMINAL ULTRASOUND - RIGHT UPPER QUADRANT REASON FOR VISIT: Female, 62 years old. Right upper quadrant pain, nausea and vomiting TECHNIQUE: Ultrasound evaluation of the right upper quadrant was performed with real-time and static coe-scale imaging. TECHNICAL QUALITY: Adequate. COMPARISON: None. FINDINGS: Liver: The liver measures 16.2 cm. There is normal echogenicity of the liver. The bile ducts are within normal limits. There is hepatic color flow. The direction of portal flow is hepatopetal. There is no demonstrated mass lesion. Gallbladder: Normal distended gallbladder. The gallbladder wall measures 3 mm. There is a negative sonographic Wan's sign. There is no pericholecystic fluid. There are no gallstones. Common Bile Duct (C.B.D.): The common bile duct measures 3.2 mm. Pancreas: Normal size of the head, body and tail of the pancreas. There is normal echogenicity of the pancreas. There is no demonstrated pancreatic mass or cyst. Right Kidney: Normal size of the right kidney. The right kidney measures 11.4 x 6.3 x 5.5 cm. Normal renal cortex. The right cortex measures 1.9 cm. There is no demonstrated renal mass or cyst. There is no right hydronephrosis. US/Gallbladder IMPRESSION: Normal right upper quadrant ultrasound examination. Electronically Signed: Joseph Tony DO at 8:59 EDT Tel , Service support , CC: Levar Eubanks MD; Bladimir Parikh MD Fur Drummer: Signed CBC W/DIFF, AUTOMATED Collected: 11/30/2017 Status: F Source: [place] 2:50 AM [facility] REPOSITORY TYPE CODE TESTS RESULT OUT OF RANGE REFERENCE UNITS LAB L100.1000 4.4-11.0 K/mm3 Low WBC 3.5 LAB L100.1200 4.2-5.4 M/mm3 Low RBC 3.62 LAB L100.1300 12.0-15.0 g/dl Normal HGB 13.6 LAB L100.1400 37-47 % Normal HCT 38.9 LAB L100.1500 81-99 fL High MCV 107.5 LAB L100.1600 27.0-32.0 pg High MCH 37.6 LAB L100.1700 32-36 g/gl Normal MCHC 35.0 LAB L100.1810 11.6-14.6 % High RDW CV 15.6 LAB L100.1820 35.1-43.9 fl High RDW SD 60.2 LAB L100.1900 150-450 K/mm3 Normal PLT 182 LAB L100.2000 6.2-12.0 fl Normal MPV 9.8 LAB L100.2100 47-70 % High NEUT% 84.4 LAB L100.2200 19-41 % Low LY% 6.1 LAB L100.2300 0-10 % Normal MONO% 6.3 LAB L100.2400 0-5 % Normal EO% 2.6 LAB L100.2500 0-1 % Normal BASO% 0.3 LAB L100.2550 0.0-0.9 % Normal IM GRAN % 0.300 Result Comment: IG% - Immature Granulocytes (promyelocytes, myelocytes and metamyelocytes) > 1% indicates that a LEFT SHIFT is Present. LAB L100.2620 2.0-7.7 X10 3/uL Normal Absolute Neut 2.9 LAB L100.2720 0.83-4.51 X10 3/ul Low Absolute Lymph 0.21 LAB L100.4500 Normal SMEAR COMMENT SCANNED Performed By: #### L100.0100 #### [facility] [address] [place], [place], [address] BASIC METABOLIC Collected: 11/30/2017 Status: F Source: [place] PROFILE (BMP) 2:50 AM [facility] REPOSITORY TYPE CODE TESTS RESULT OUT OF RANGE REFERENCE UNITS LAB L501.0100 74-106 mg/dL Normal GLU 103 Result Comment: Fasting Glucose result from 100 to 125 mg/dL suggests IMPAIRED HOMEOSTASIS per A.D.A. criteria. Please note revised GLUCOSE reference range effective 2017. LAB L501.1000 7-18 mg/dL Low BUN 6 LAB L501.1100 0.55-1.02 mg/dL Low CREAT,SERUM 0.53 Result Comment: The validity of the calculated GFR AND GFRAA in patients over 70 years has not been determined. Clinical correlation is essential. LAB L501.1110 >60 mL/min Normal EST GFR 125 Result Comment: Non- GFR Calc LAB L501.1115 >60 mL/min Normal EST GFR - AA 151 Result Comment: GFR Calc LAB L501.1255 ml/min Normal Estimated CRCL 95.04 LAB L501.1300 10-20 RATIO Normal BUN/CRE 11.4 LAB L501.2200 8.5-10 mg/dL Low .1 CA 8.2 LAB L501.5300 136-14 mmol/L Normal 5 NA 137 LAB L501.5600 3.5-5. mmol/L Normal 1 K 3.6 LAB L501.5900 98-107 mmol/L Normal CL 101 LAB L501.6100 21.0-3 mmol/L Normal 2.0 CO2 26.0 LAB L501.6200 5-15 Normal GAP 10 Performed By: #### L500.2500, L500.3400, L501.2450 #### [facility] [address] [place], [place], [address] LIVER PROFILE Collected: 11/30/2017 Status: F Source: [place] 2:50 AM [facility] REPOSITORY TYPE CODE TESTS RESULT OUT OF RANGE REFERENCE UNITS LAB L501.1500 6.4-8.2 g/dL Normal T PROT 7.5 LAB L501.1800 3.2-5.0 g/dL Normal ALB 3.6 LAB L501.1950 2.2-4.2 g/dL Normal GLOB 3.9 LAB L501.4100 15-37 U/L Normal AST 32 LAB L501.4305 45-117 U/L Normal ALK P 46 LAB L501.4405 13-56 U/L Normal ALT 36 LAB L501.4600 0.20-1.00 mg/dL High T BILI 1.10 LAB L501.4700 0.00-0.30 mg/dL Normal D BILI 0.27 Performed By: #### L500.2500, L500.3400, L501.2450 #### [facility] [address] [place], [address] LIPASE Collected: 11/30/2017 Status: F Source: [place] 2:50 AM [facility] REPOSITORY TYPE CODE TESTS RESULT OUT OF RANGE REFERENCE UNITS LAB L501.2450 73-393 U/L Normal LIPASE 171 Performed By: #### L500.2500, L500.3400, L501.2450 #### [facility] [address] [place], [address] CNCO Observed: 11/23/2017 Status: COMPLETED Source: [place] 12:00 AM [facility] REPOSITORY Letter Text Sylvia Ramirez [facility] [address] [place] [address] November 23, 2017 Dear Ms. Ward Moises Leathamoises, Due to a change in Dr. Liang's schedule, it is necessary to reschedule your appointment on 04/13/18. We apologize for the inconvenience. Please call the office at [phone] to reschedule and as always thank you for choosing the [facility]. [facility] PROGRESS Observed: 10/29/2017 Status: COMPLETED Source: [place] 8:57 AM [facility] REPOSITORY HNO ID: [id number] Author: Robert Orr) Carlos Service: (none) Author Type: Physician Type: Progress Notes Filed: 10/29/2017 8:57 AM Note Text: *10/22/17 high CK 577 CBC-COMPLETE BLOOD CNT Collected: 10/22/2017 Status: F Source: [place] NO DIFF 12:27 PM [facility] REPOSITORY TYPE CODE TESTS RESULT OUT OF RANGE REFERENCE UNITS LAB L100.1000 4.4-11.0 K/mm3 Low WBC 4.0 LAB L100.1200 4.2-5.4 M/mm3 Low RBC 3.84 LAB L100.1300 12.0-15.0 g/dl Normal HGB 13.2 LAB L100.1400 37-47 % Normal HCT 39.5 LAB L100.1500 81-99 fL High MCV 102.9 LAB L100.1600 27.0-32.0 pg High MCH 34.4 LAB L100.1700 32-36 g/gl Normal MCHC 33.4 LAB L100.1810 11.6-14.6 % High RDW CV 16.0 LAB L100.1820 35.1-43.9 fl High RDW SD 59.6 LAB L100.1900 150-450 K/mm3 Normal PLT 204 LAB L100.2000 6.2-12.0 fl Normal MPV 10.2 Performed By: #### L100.0500 #### [facility] [address] [facility]. [place], [place], [id number] LIVER PROFILE Collected: 10/22/2017 Status: F Source: [place] 12:27 PM [facility] REPOSITORY TYPE CODE TESTS RESULT OUT OF RANGE REFERENCE UNITS LAB L501.1500 6.4-8.2 g/dL Normal T PROT 7.5 LAB L501.1800 3.2-5.0 g/dL Normal ALB 3.8 LAB L501.1950 2.2-4.2 g/dL Normal GLOB 3.7 LAB L501.4100 15-37 U/L Normal AST 33 LAB L501.4305 45-117 U/L Low ALK P 43 LAB L501.4405 13-56 U/L Normal ALT 36 LAB L501.4600 0.20-1.00 mg/dL Normal T BILI 0.90 LAB L501.4700 0.00-0.30 mg/dL Normal D BILI 0.16 Performed By: #### L500.3400, L501.1105, L501.3620 #### [facility] [address] [place], [place], [id number] SERUM CREATININE AND Collected: 10/22/2017 Status: F Source: [place] GFR 12:27 PM [facility] REPOSITORY TYPE CODE TESTS RESULT OUT OF RANGE REFERENCE UNITS LAB L501.1100 0.55-1.02 mg/dL Low 0.49 CREAT,SERUM Result Comment: The validity of the calculated GFR AND GFRAA in patients over 70 years has not been determined. Clinical correlation is essential. LAB L501.1110 >60 mL/min Normal EST GFR 135 Result Comment: Non- GFR Calc LAB L501.1115 >60 mL/min Normal EST GFR - AA 163 Result Comment: GFR Calc Performed By: #### L500.3400, L501.1105, L501.3620 #### [facility] [address] [place], [address] CPK TOTAL, CREATINE Collected: 10/22/2017 Status: F Source: [place] KINASE 12:27 PM [facility] REPOSITORY TYPE CODE TESTS RESULT OUT OF RANGE REFERENCE UNITS LAB L501.3620 26-192 U/L High CPK TOTAL 577 Performed By: #### L500.3400, L501.1105, L501.3620 #### [facility] [address] [place], [address] PROGRESS Observed: 09/16/2017 Status: COMPLETED Source: [place] 4:33 PM CLINIC OTHER CAMPUS REPOSITORY HNO ID: [id number] Author: Annette (Jose) Fernando Service: (none) Author Type: Resident Type: Progress Notes Filed: 09/22/2017 8:51 PM Note Text: Chief Complaint: Patient presents with: New Patient Evaluation: r foot big toe HPI: This 62 year old female presents with chief complaint of right great toe joint pain. She relates the pain has been present several years with worsening course. She was seen in this clinic several years ago, but at that time was not ready to consider surgery. She has tried to continue with shoe gear modifications, padding, OTC medication without significant relief. Previous bunion surgery around 2004. Pain is interfering with activities and she would like to discuss surgical intervention. No other complaints. AMB ROOMING INTAKE FLOWSHEET DATA Risk Screening Do you have concerns about personal safety or safety in the home?: No Pain Pain Score: 5/10 Pain Location: Foot-Right Description: Aching Duration Units: Weeks Frequency: Intermittent Intervention: Medication, Relaxation PCP: Levar Eubanks MD: [facility] PAST MEDICAL HISTORY Diagnosis Date - Malignant neoplasm of breast (female), unspecified site Breast cancer, left : MEDICATIONS Current Outpatient Prescriptions: azaTHIOprine (IMURAN) 50 mg tablet TAKE 4 TABLETS BY MOUTH ONCE A DAY predniSONE (DELTASONE) 5 mg tablet Take 15mg/day x1 week, then 10mg/day x1 week, then 5mg/day thereafter predniSONE (DELTASONE) 1 mg tablet Take 5mg/day traMADol (ULTRAM) 50 mg tablet Take 1 tablet by mouth once daily as needed. MULTIVITAMIN,THER AND MINERALS (VITAMINS AND MINERALS ORAL) Take by mouth. PEPSIN/BETAINE HCL (PEPSIN-BETAINE ORAL) Take by mouth. IRON FUM,PS CMP/VIT C/NIACIN (INTEGRA ORAL) Take by mouth. PEC,CITRUS/INOSITOL/VIT C/SOYB (MODIFIED CITRUS PECTIN ORAL) Take by mouth. BiotaGen capsules (Klaire/Prothera) 4 capsules once daily Glutathione (SpoonRocket) 8 pumps twice daily Magnesium Citrate 150mg [address] ct[address] (Pure Encapsulations) Take 3 capsules daily at night B-Complex Plus (Pure Encapsulations) Take 1 capsule by mouth daily with food. PureGenomics Multivitamin (Pure Encapsulations) Take 1 capsule by mouth daily with food. Hepato-Thera Forte (Klaire/Prothera) Take 1 capsule by mouth daily at bedtime. CurcumaSorb (Pure Encapsulations) 2?-3 capsules daily between meals LACTOBACILLUS COMBINATION NO.8 (ADULT PROBIOTIC ORAL) Take by mouth. OTC NUTRITIONAL SUPPLEMENT once daily. Immune activator Nature's Way ACETAMINOPHEN/DIPHENHYDRAMINE (TYLENOL PM ORAL) Take 1 tablet by mouth daily at bedtime. Diclofenac Sodium (VOLTAREN) 1 % gel Apply moderate amount to painful areas on hands (2g) up to four times daily as needed. Don't exceed a total of 32g daily. turmeric root extract 500 mg cap Take by mouth once daily. Cholecalciferol, Vitamin D3, (VITAMIN D) 1,000 unit ORAL Tab Take one(1) tablet daily. omega-3 fatty acids 1,000 mg ORAL Cap Take one(1) capsule daily. No current facility-administered medications for this visit. : ALLERGIES No Known Allergies: PAST SURGICAL HISTORY Procedure Laterality Date - APPENDECTOMY - BREAST BIOPSY 02/06/2015 Left breast - CARPAL TUNNEL RIGHT WRIST 05/2009 - CORRECT BUNION,SIMPLE Bunion, bilateral - HYSTERECTOMY HX 2007 laparoscopic and vaginal total hysterectomy - KNEE SCOPE,DIAGNOSTIC Arthroscopy, knee- left - MASTEC PARTIAL W AXILL NODE REMOV 07-06-06 sentinel node biopsy, left - PAST SURGICAL HISTORY OF 2006 Left lumpectomy - PAST SURGICAL HISTORY OF 02/2011 Carpal tunnel decomp left wrist - PAST SURGICAL HISTORY OF 07/2010 abdominoplasty;left breast reconstruction, right breast mastopexy - PAST SURGICAL HISTORY OF 11/2011 breast reconstruction left - PAST SURGICAL HISTORY OF 03/2015 Right foot - REMOVAL OF TONSILS,<12 Y/O Tonsillectomy - REPAIR INCISIONAL HERNIA,REDUCIBLE 1998 abdominal FAMILY HISTORY Problem Relation Age of Onset - Breast Cancer Mother 67 - Colon Cancer Mother - Breast Cancer Sister 46 - Breast Cancer Paternal Grandmother 75 - Breast Cancer Maternal Aunt 57 - Breast Cancer Maternal Aunt 55 - Arthritis Father Gout - Cancer Other First cousin; lymphoma. 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 The patient is awake, alert and oriented to time, place, and person. Patient has a normal affect and mood and Resp 12 Ht 161.3 cm (5' 3.5) Wt 64.4 kg (142 lb) BMI 24.76 kg/m? Examination of Both Lower Extremities: Peripheral pulses are palpable. Capillary refill time is less than 3 seconds to all toes. The skin is warm and dry. No rashes or lesions. There are no open wounds or signs of infection, There is no lymphadenopathy noted. Peripheral sensation and reflexes are intact, bilateral and symmetrical. Motor strength is 5/5 of all groups. Normal range of motion, stability and coordination of both lower extremities. Focused Exam of Right Lower Extremity: Palpable peripheral pulses. No neurovascular deficits. The hallux is in an adducted position with pain and crepitus with 1st MPJ ROM. 1st ROM is restricted. The digits appear rectus. Muscle strength 5/5. Pain on palpation of taut FHL tendon just proximal to the 1st met head. Increased medial longitudinal arch. Radiographic Evaluation: Three views of the right foot were ordered and reviewed. These radiographs revealed no acute fractures or dislocations. The hallux is adducted on the 1st met head and there is joint space narrowing with signs of degeneration. There is a screw in the base of the 1st metatarsal and evidence of prior distal 1st met head medial resection. Pes cavus foot architecture. Diagnostic Assessment: Arthritis of first metatarsophalangeal (mtp) joint of right foot (primary encounter diagnosis) Hallux varus (acquired), right foot Treatment Plan and Recommendations: A comprehensive history and physical examination were preformed. The patient was educated on clinical and radiographic findings, diagnosis and treatment plans. Patient states that she understands all that has been explained and all questions were answered to her apparent satisfaction. Educated patient on conservative and surgical treatment options. The patient understands all explained to her and would like to proceed with surgical intervention. I've recommended 1st MPJ fusion, right foot. Patient was educated on the details of the procedures as well as medically reasonable risks, benefits, alternatives and prognosis. Patient was also educated on perioperative management including preoperative medical clearance, preoperative physical therapy consultation, postoperative care and rehabilitation, anticipated time to full weightbearing, return to shoes and maximum medical improvement. Lastly patient was educated to their apparent understanding on potential complications including but not limited to infection, recurrence, over correction or under correction, persistent pain, swelling or disability, nerve injury or entrapment, bone and soft tissue healing complications, complications with anesthesia and deep vein thrombosis or pulmonary embolism. All questions were answered to the patient?s apparent satisfaction. No guarantees were given as to the outcome of the surgery. Medical clearance pending and surgical scheduling to follow. Patient will call to schedule I personally saw and evaluated the patient. I reviewed the resident's note. I agree with the resident's assessment and plan unless otherwise noted. Antonio Vang DPM, SANA King DPM PGY-3 CNOV Observed: 09/16/2017 Status: COMPLETED Source: [place] 11:00 AM CLINIC OTHER CAMPUS REPOSITORY Office Visit (AGHWW1) SYLVIA RAMIREZ ([id number]) 1955 F [facility] Date Time Provider Department 09/16/17 11:00 AM ANTONIO VANG AGHWW1 During your visit today, we recorded the following information about you: Respiration Weight Height 12/minute 64.4 kg 1.613 m Medina King 09/22/2017 8:50 PM Addendum Chief Complaint: Patient presents with: New Patient Evaluation: r foot big toe HPI: This 62 year old female presents with chief complaint of right great toe joint pain. She relates the pain has been present several years with worsening course. She was seen in this clinic several years ago, but at that time was not ready to consider surgery. She has tried to continue with shoe gear modifications, padding, OTC medication without significant relief. Previous bunion surgery around 2004. Pain is interfering with activities and she would like to discuss surgical intervention. No other complaints. AMB ROOMING INTAKE FLOWSHEET DATA Risk Screening Do you have concerns about personal safety or safety in the home?: No Pain Pain Score: 5/10 Pain Location: Foot-Right Description: Aching Duration Units: Weeks Frequency: Intermittent Intervention: Medication, Relaxation PCP: Levar Eubanks MD: [facility] PAST MEDICAL HISTORY Diagnosis Date - Malignant neoplasm of breast (female), unspecified site Breast cancer, left : MEDICATIONS Current Outpatient Prescriptions: azaTHIOprine (IMURAN) 50 mg tablet TAKE 4 TABLETS BY MOUTH ONCE A DAY predniSONE (DELTASONE) 5 mg tablet Take 15mg/day x1 week, then 10mg/day x1 week, then 5mg/day thereafter predniSONE (DELTASONE) 1 mg tablet Take 5mg/day traMADol (ULTRAM) 50 mg tablet Take 1 tablet by mouth once daily as needed. MULTIVITAMIN,THER AND MINERALS (VITAMINS AND MINERALS ORAL) Take by mouth. PEPSIN/BETAINE HCL (PEPSIN-BETAINE ORAL) Take by mouth. IRON FUM,PS CMP/VIT C/NIACIN (INTEGRA ORAL) Take by mouth. PEC,CITRUS/INOSITOL/VIT C/SOYB (MODIFIED CITRUS PECTIN ORAL) Take by mouth. BiotaGen capsules (Klaire/Prothera) 4 capsules once daily Glutathione (SpoonRocket) 8 pumps twice daily Magnesium Citrate 150mg [address] ct[address] (Pure Encapsulations) Take 3 capsules daily at night B-Complex Plus (Pure Encapsulations) Take 1 capsule by mouth daily with food. PureGenomics Multivitamin (Pure Encapsulations) Take 1 capsule by mouth daily with food. Hepato-Thera Forte (Klaire/Prothera) Take 1 capsule by mouth daily at bedtime. CurcumaSorb (Pure Encapsulations) 2?-3 capsules daily between meals LACTOBACILLUS COMBINATION NO.8 (ADULT PROBIOTIC ORAL) Take by mouth. OTC NUTRITIONAL SUPPLEMENT once daily. Immune activator Nature's Way ACETAMINOPHEN/DIPHENHYDRAMINE (TYLENOL PM ORAL) Take 1 tablet by mouth daily at bedtime. Diclofenac Sodium (VOLTAREN) 1 % gel Apply moderate amount to painful areas on hands (2g) up to four times daily as needed. Don't exceed a total of 32g daily. turmeric root extract 500 mg cap Take by mouth once daily. Cholecalciferol, Vitamin D3, (VITAMIN D) 1,000 unit ORAL Tab Take one(1) tablet daily. omega-3 fatty acids 1,000 mg ORAL Cap Take one(1) capsule daily. No current facility-administered medications for this visit. : ALLERGIES No Known Allergies: PAST SURGICAL HISTORY Procedure Laterality Date - APPENDECTOMY - BREAST BIOPSY 02/06/2015 Left breast - CARPAL TUNNEL RIGHT WRIST 05/2009 - CORRECT BUNION,SIMPLE Bunion, bilateral - HYSTERECTOMY HX 2007 laparoscopic and vaginal total hysterectomy - KNEE SCOPE,DIAGNOSTIC Arthroscopy, knee- left - MASTEC PARTIAL W AXILL NODE REMOV 07-06-06 sentinel node biopsy, left - PAST SURGICAL HISTORY OF 2006 Left lumpectomy - PAST SURGICAL HISTORY OF 02/2011 Carpal tunnel decomp left wrist - PAST SURGICAL HISTORY OF 07/2010 abdominoplasty;left breast reconstruction, right breast mastopexy - PAST SURGICAL HISTORY OF 11/2011 breast reconstruction left - PAST SURGICAL HISTORY OF 03/2015 Right foot - REMOVAL OF TONSILS,<12 Y/O Tonsillectomy - REPAIR INCISIONAL HERNIA,REDUCIBLE 1998 abdominal FAMILY HISTORY Problem Relation Age of Onset - Breast Cancer Mother 67 - Colon Cancer Mother - Breast Cancer Sister 46 - Breast Cancer Paternal Grandmother 75 - Breast Cancer Maternal Aunt 57 - Breast Cancer Maternal Aunt 55 - Arthritis Father Gout - Cancer Other First cousin; lymphoma. 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 The patient is awake, alert and oriented to time, place, and person. Patient has a normal affect and mood and Resp 12 Ht 161.3 cm (5' 3.5) Wt 64.4 kg (142 lb) BMI 24.76 kg/m? Examination of Both Lower Extremities: Peripheral pulses are palpable. Capillary refill time is less than 3 seconds to all toes. The skin is warm and dry. No rashes or lesions. There are no open wounds or signs of infection, There is no lymphadenopathy noted. Peripheral sensation and reflexes are intact, bilateral and symmetrical. Motor strength is 5/5 of all groups. Normal range of motion, stability and coordination of both lower extremities. Focused Exam of Right Lower Extremity: Palpable peripheral pulses. No neurovascular deficits. The hallux is in an adducted position with pain and crepitus with 1st MPJ ROM. 1st ROM is restricted. The digits appear rectus. Muscle strength 5/5. Pain on palpation of taut FHL tendon just proximal to the 1st met head. Increased medial longitudinal arch. Radiographic Evaluation: Three views of the right foot were ordered and reviewed. These radiographs revealed no acute fractures or dislocations. The hallux is adducted on the 1st met head and there is joint space narrowing with signs of degeneration. There is a screw in the base of the 1st metatarsal and evidence of prior distal 1st met head medial resection. Pes cavus foot architecture. Diagnostic Assessment: Arthritis of first metatarsophalangeal (mtp) joint of right foot (primary encounter diagnosis) Hallux varus (acquired), right foot Treatment Plan and Recommendations: A comprehensive history and physical examination were preformed. The patient was educated on clinical and radiographic findings, diagnosis and treatment plans. Patient states that she understands all that has been explained and all questions were answered to her apparent satisfaction. Educated patient on conservative and surgical treatment options. The patient understands all explained to her and would like to proceed with surgical intervention. I've recommended 1st MPJ fusion, right foot. Patient was educated on the details of the procedures as well as medically reasonable risks, benefits, alternatives and prognosis. Patient was also educated on perioperative management including preoperative medical clearance, preoperative physical therapy consultation, postoperative care and rehabilitation, anticipated time to full weightbearing, return to shoes and maximum medical improvement. Lastly patient was educated to their apparent understanding on potential complications including but not limited to infection, recurrence, over correction or under correction, persistent pain, swelling or disability, nerve injury or entrapment, bone and soft tissue healing complications, complications with anesthesia and deep vein thrombosis or pulmonary embolism. All questions were answered to the patient?s apparent satisfaction. No guarantees were given as to the outcome of the surgery. Medical clearance pending and surgical scheduling to follow. Patient will call to schedule I personally saw and evaluated the patient. I reviewed the resident's note. I agree with the resident's assessment and plan unless otherwise noted. Antonio Vang, DPM, FACFAS Annette King DPM PGY-3 Referring Provider: LEVAR EUBANKS [[id number]] Allergies As of Date: 09/16/2017 (No Known Allergies) Date Reviewed: 09/16/2017 Reviewed by: Annette (Res) Fernando - Fully Assessed Reason for Visit: New Patient Evaluation [154] Cmt: r foot big toe Primary Visit Diagnosis:Arthritis of first metatarsophalangeal (MTP) joint of right foot [M12.9] Other Visit Diagnosis:Hallux varus (acquired), right foot [M20.31] Order(s):XR FOOT GENERAL 3V AP/LAT/OBL LT [[id number]] Order #: [id number] Prescriptions as of 09/16/2017 Sig: AZATHIOPRINE 50 MG TABLET TAKE 4 TABLETS BY MOUTH ONCE * PREDNISONE 5 MG TABLET Take 15mg/day x1 week, then 1* X PREDNISONE 1 MG TABLET Take 5mg/day TRAMADOL 50 MG TABLET Take 1 tablet by mouth once d* VITAMINS AND MINERALS ORAL Take by mouth. PEPSIN-BETAINE ORAL Take by mouth. INTEGRA ORAL Take by mouth. MODIFIED CITRUS PECTIN ORAL Take by mouth. OTC NUTRITIONAL SUPPLEMENT 4 capsules once daily OTC NUTRITIONAL SUPPLEMENT 8 pumps twice daily OTC NUTRITIONAL SUPPLEMENT Take 3 capsules daily at night OTC NUTRITIONAL SUPPLEMENT Take 1 capsule by mouth daily* OTC NUTRITIONAL SUPPLEMENT Take 1 capsule by mouth daily* OTC NUTRITIONAL SUPPLEMENT Take 1 capsule by mouth daily* OTC NUTRITIONAL SUPPLEMENT 2?-3 capsules daily between m* ADULT PROBIOTIC ORAL Take by mouth. OTC NUTRITIONAL SUPPLEMENT once daily. Immune activator * TYLENOL PM ORAL Take 1 tablet by mouth daily * DICLOFENAC 1 % TOPICAL GEL Apply moderate amount to pain* TURMERIC ROOT EXTRACT 500 MG * Take by mouth once daily. * CHOLECALCIFEROL (VITAMIN D3) * Take one(1) tablet daily. * OMEGA-3 FATTY ACIDS 1,000 MG * Take one(1) capsule daily. 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 Arthritis of first metatarsophalangeal (MTP) sheila*INVALID FOR* More... Disposition: Return after surgery. Follow-up and Disposition History Recorded Encounter Status:Closed by ANTONIO VANG DPM on 09/22/17 HOSP Observed: 09/16/2017 Status: COMPLETED Source: [place] 12:00 AM CLINIC OTHER CAMPUS REPOSITORY Patient:Sylvia Ramirez MRN: <[id number]> Height:5' 3(1.6 m) Weight:145 lb (65.772 kg) Outpatient Medications as of 01/17/18: OMEPRAZOLE ORAL predniSONE (DELTASONE) 1 mg tablet azaTHIOprine (IMURAN) 50 mg tablet traMADol (ULTRAM) 50 mg tablet BiotaGen capsules (Klaire/Prothera) Glutathione (SpoonRocket) Magnesium Citrate 150mg 90 ct[address] (Pure Encapsulations) B-Complex Plus (Pure Encapsulations) CurcumaSorb (Pure Encapsulations) LACTOBACILLUS COMBINATION NO.8 (ADULT PROBIOTIC ORAL) ACETAMINOPHEN/DIPHENHYDRAMINE (TYLENOL PM ORAL) Diclofenac Sodium (VOLTAREN) 1 % gel turmeric root extract 500 mg cap Cholecalciferol, Vitamin D3, (VITAMIN D) 1,000 unit ORAL Tab omega-3 fatty acids 1,000 mg ORAL Cap Admission/Clinic Administered Medications as of 01/17/18: lactated ringers infusion ceFAZolin iv piggyback 2 g in D5W (iso-osmotic) 100 mL (ANCEF) lactated ringers infusion fentaNYL 50 mcg/mL 25 mcg injection (SUBLIMAZE) HYDROmorphone 0.5 mg injection (DILAUDID) ondansetron (PF) 4 mg injection (ZOFRAN) oxyCODONE IR 5 mg tab(s) (ROXICODONE) Problem List: BREAST CANCER LOWER OUTER [C50.519] Cervicalgia [M54.2] Constipation [K59.00] Localized adiposity [E65] Personal history of malignant neoplasm of breast [Z85.3] 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] ILD (interstitial lung disease) (HCC) [J84.9] High risk medication use [Z79.899] Heavy metal exposure [Z77.018] Acquired hallux varus of right foot [M20.31] Arthritis of first metatarsophalangeal (MTP) joint of right foot [M19.071] Long-term use of immunosuppressant medication [Z79.899] Allergies: No Known Allergies Date Verified:01/17/18 Lab Values No results within the last 30 days for the following basenames: K,HCT Progress Notes ([facility]): Robert Nesbitt MD 12/28/2017 10:57 AM Signed On 12/28/2017, I had the pleasure of seeing Sylvia Ramirez at the [facility] for follow-up of anti-synthetase syndrome on AZA. HPI: To review, Sylvia Ramirez is a 62 year old female - In October, noted onset of wrist swelling. Found to have a +PATRICK - In Jan, seen by outside rheumatology with joint pain and finger rash. Diagnosed with inflammatory arthritis. Started on MTX but stopped by patient 2 weeks laters - In Mar, developed joint stiffness so MTX restarted - In early Apr, MTX stopped due to elevated LFTs - In late Apr, established care with Dr. Fitzpatrick in [facility] rheumatology with joint pain, myalgias, and rash. Labs with CK 1726, +PATRICK, and +Sheila-1. 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 - In May, started on MTX 20mg PO weekly - In July, symptoms and lab worsening. MTX stopped. Indeterminate TB so eventually saw ID and cleared to resume immunosuppression. - In September, started imuran - In Dec, reported improved symptoms but with some wrist pain and swelling. Dr. Fitzpatrick has been cautious with imuran dosage increases given hx of breast cancer. No medication changes made. - On May 15, 2014 found to have higher CK 1400<370. Dr. Fitzpatrick increased to imuran 200mg daily and started prednisone taper with plans to recheck labs 4 weeks later. - In late Apr, reported improved stiffness in PIPs and DIPs. With slight rash over distal fingertips. Was on prednisone 15mg daily with plans for taper by 5mg weekly. No muscle weakness. - In July, reported feeling well. Baseline aches in joints and muscles. Rash stable. Off prednisone, last dose in May. AZA 200mg/day continued - In Nov, placed on pred 10mg/day given high CK - In Mar, reported feeling well w/o any joint or muscle pain. No weakness or rash. - In early May, CK ~4000 although she felt well. Advised consideration of rituxan. She opted for prednisone 40mg with taper to 5mg/day. - June, had episode of cellulitis over L arm. Held AZA x8-9 days, restarted on 07/14/14 - In July, reported no muscle pain or weakness on pred 5mg/day x2 weeks. - In September, decreased to pred 4mg/day - In mid-Nov, alternated pred 4mg/5mg qod - In Dec, reported feeling well. - In Apr, reported feeling well on pred 5mg/day. Decreased to pred 4mg and 5mg alternating qod - In June, elevated CK to 2987 with increased weakness. Increased to prednisone 10mg/day. Adding rituxan was discussed, but deferred given subsequent improvement - In interim, started on prolia - In Nov, reported feeling well on pred 5mg/day. - In early Feb, increased to pred 20mg/day with taper to 5mg/day per PCP for flare involving wrist swelling. CK 900s - In Apr, reported feeling well. - In June, CK 1400s. Discussed starting rituxan - In August, reported feeling well - Today, reports feeling well. - Would like to take grandson to [facility] next year PAST MEDICAL HISTORY Diagnosis Date - Malignant neoplasm of breast (female), unspecified site Breast cancer, left PAST SURGICAL HISTORY Procedure Laterality Date - APPENDECTOMY - BREAST BIOPSY 02/06/2015 Left breast - CARPAL TUNNEL RIGHT WRIST 05/2009 - CORRECT BUNION,SIMPLE Bunion, bilateral - HYSTERECTOMY HX 2007 laparoscopic and vaginal total hysterectomy - KNEE SCOPE,DIAGNOSTIC Arthroscopy, knee- left - MASTEC PARTIAL W AXILL NODE REMOV 07-06-06 sentinel node biopsy, left - PAST SURGICAL HISTORY OF 2006 Left lumpectomy - PAST SURGICAL HISTORY OF 02/2011 Carpal tunnel decomp left wrist - PAST SURGICAL HISTORY OF 07/2010 abdominoplasty;left breast reconstruction, right breast mastopexy - PAST SURGICAL HISTORY OF 11/2011 breast reconstruction left - PAST SURGICAL HISTORY OF 03/2015 Right foot - REMOVAL OF TONSILS,<12 Y/O Tonsillectomy - REPAIR INCISIONAL HERNIA,REDUCIBLE 1998 abdominal Review of patient's allergies indicates: No Known Allergies MEDICATIONS: Current Outpatient Prescriptions: OMEPRAZOLE ORAL Take 20 mg by mouth. predniSONE (DELTASONE) 1 mg tablet Take 5mg/day azaTHIOprine (IMURAN) 50 mg tablet TAKE 4 TABLETS BY MOUTH DAILY traMADol (ULTRAM) 50 mg tablet Take 1 tablet by mouth once daily as needed. BiotaGen capsules (Klaire/Prothera) 4 capsules once daily Glutathione (SpoonRocket) 8 pumps twice daily Magnesium Citrate 150mg [address] ct[address] (Pure Encapsulations) Take 3 capsules daily at night B-Complex Plus (Pure Encapsulations) Take 1 capsule by mouth daily with food. CurcumaSorb (Pure Encapsulations) 2?-3 capsules daily between meals LACTOBACILLUS COMBINATION NO.8 (ADULT PROBIOTIC ORAL) Take by mouth. ACETAMINOPHEN/DIPHENHYDRAMINE (TYLENOL PM ORAL) Take 1 tablet by mouth daily at bedtime. Diclofenac Sodium (VOLTAREN) 1 % gel Apply moderate amount to painful areas on hands (2g) up to four times daily as needed. Don't exceed a total of 32g daily. turmeric root extract 500 mg cap Take by mouth once daily. Cholecalciferol, Vitamin D3, (VITAMIN D) 1,000 unit ORAL Tab Take one(1) tablet daily. omega-3 fatty acids 1,000 mg ORAL Cap Take one(1) capsule daily. No current facility-administered medications for this visit. FAMILY HISTORY Problem Relation Age of Onset - Breast Cancer Mother 67 - Colon Cancer Mother - Breast Cancer Sister 46 - Breast Cancer Paternal Grandmother 75 - Breast Cancer Maternal Aunt 57 - Breast Cancer Maternal Aunt 55 - Arthritis Father Gout - Cancer Other First cousin; lymphoma. SOCIAL HISTORY: Lives in [place]. 2 kids and 1 grandson Davis (in [place]) who is turned 4 in June. Son is PT in [place], son-in-law who is local is mechanical manufacturing technician. Tobacco Use: 1 pack/day, for 10 years. Quit 08/20/1979. Types: Cigarettes Alcohol Use: Approximately 0 oz/week (About one serving per month ) REVIEW OF SYSTEMS: Reviewed 02/06 systems, as above and as below: RESPIRATORY: Chronic cough MUSCULOSKELETAL: Joint pain, Joint swelling, Morning stiffness in joints ALLERGIC/ IMMUNOLOGIC: Allergies (other than medications) PHYSICAL EXAM: VITALS: Blood pressure 120/72, pulse 76, temperature 36.7 ?C (98.1 ?F), temperature source Oral, height 161.3 cm (5' 3.5), weight 66.7 kg (147 lb). CONSTITUTIONAL: Well-appearing, in NAD. SKIN: No rash. No alopecia. No sclerodactyly, calcinosis, telangiectasias, digitial ulcers, or skin thickening. EYES: No scleral icterus or conjunctivitis, PERRLA. ENT and Mouth: External ears normal. Nares normal. Mucous membranes normal. Oropharynx normal. NECK: No lymphadenopathy RESPIRATORY: Normal breath sounds, no significant crackles CARDIOVASCULAR: Regular rate and rhythm, no murmurs or rubs GASTROENTEROLOGY: Normal bowel sounds. Abdomen is soft and non-tender. EXTREMITIES/LYMPH: No edema bilaterally NEURO: Awake, alert and oriented, normal gait, strength 5/5 intact over upper and lower extremity muscles bilaterally MUSCULOSKELETAL: JOINT APPEARANCE: With Heberden's and Anam's nodes. No erythema or warmth of any upper or lower extremity joint. RANGE OF MOTION: Able to fully close fists bilaterally. SWOLLEN JOINTS/SYNOVITIS: No synovitis TENDER JOINTS: None LABORATORY: *12/06/17 high CK 425 and low wbc 3.5 with unremarkable hgb, plt, Cr, LFTs *08/23/17 high CK 909, low wbc 3.5 (4.4-11), and high AST 44 with unremarkable hgb, plt, cr, and alt *06/18/17 high CK 1418 *03/23/17 high AST 49 and high ck 924 with unremarkable wbc, hgb, plt, alt, and cr *12/17/16 high CK 1800s *10/08/16 high CK 1661 with wbc 5.2, hgb 13.3, plt 210, cr 0.4, alt 54 and ast 58 (ULN 37) *08/26/16 high ESR 39 (ULN 30), high CRP 4.67 (ULN 3), and unremarkable hep a/b/c (+hep A total with neg IgM indicating immunity) *05/13/16 High CK 1840 (ULN 192) and high AST 76 (37) with unremarkable wbc, hgb, p, cr, and ALT *Mar high CK 1210 *01/22/16 TA bx negative for GCA, with mild intimal hyperplasia. Steroids getting weaned by PCP *01/10/16 outside labs: high ESR 79 and CRP 192 with unremarkable CBC Component Latest Ref Rng 06/25/2015 07/16/2015 08/09/2015 09/17/2015 10/18/2015 11/15/2015 12/10/2015 CK 30 - 220 U/L 1216 (H) 1522 (H) 2111 (H) 1787 (H) 1315 (H) 1733 (H) 1587 (H) Component Latest Ref Rng 06/12/2014 07/10/2014 08/07/2014 CK 30 - 220 U/L 1405 (H) 1124 (H) 909 (H) WSR 0 - 15 mm/hr 11 15 CRP 0.0 - 1.0 mg/dL 0.8 0.7 Sm Antibody <1.0 AI <0.2 PILE DRIVER OPERATOR BARGE MOUNTED Antibody <1.0 AI <0.2 SSA Antibody <1.0 AI <0.2 SSB Antibody <1.0 AI <0.2 Centromere Ab <1.0 AI <0.2 Scleroderma Ab, IgG <1.0 AI <0.2 Sheila 1 Antibody <1.0 AI >8.0 (H) Ribosomal PILE DRIVER OPERATOR BARGE MOUNTED <1.0 AI <0.2 Chromatin Antibody <1.0 AI <0.2 Bilirubin, Conjug 0.0 - 0.4 mg/dL 0.1 CRP 0.0 - 1.0 mg/dL 2.5 (H) WSR 0 - 15 mm/hr 20 (H) CCP Antibody, IgG <20 Units <15 PATRICK by EIA <1.5 OD Ratio 5.0 (H) Aldolase 1.5 - 8.1 U/L 40.9 (H) Myoglobin, Serum 30 - 90 ng/mL 632 (H) CK 30 - 220 U/L 1726 (H) STUDIES: *Feb PFTs- unremarkable *Jan/Feb outside DEXA- osteoporosis, L fem neck t-score -2.5 *Jan outside DEXA- reportedly with osteopenia *Jan PFTs- IMPRESSION: Small airway obstruction. Normal total lung capacity. Normal gas exchange. 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 Elevated CK but stable. Of note, with personal hx of breast cancer. - Continue imuran 200mg daily along with routine lab monitoring every 4-6 weeks. Standing lab orders renewed, printed and signed for outside lab. Notify of results via MyChart - Decrease to prednisone 4mg - Continue pulmonary follow-up, reminded to schedule - Advised in past that if CK level significantly increases in future again, would advise treatment modification with addition of rituxan. R/B/A discussed, printed information on medication provided for review in past - Continue tramadol (last filled in Nov) 2. Finger pain: Likely OA - Continue voltaren gel prn - Continue tylenol prn 3. Osteopenia: Per Jan DEXA. Had not resumed boniva. - Continue prolia via another provider - Continue ca and vit D - Check DEXA in Jan 4. Leukopenia: Likely due to recent infection and antibiotic use. - Recheck CBC with diff in 2 weeks. Printed and signed order provided 5. General health maintenance: - Advised to continue follow-up with PCP for routine health maintenance and malignancy screening Follow-up in 4 months. Patient was instructed to call if any questions or concerns. Thank you for allowing me to participate in the care of your patient. Robert Nesbitt MD CBC W/DIFF, AUTOMATED Collected: 09/13/2017 Status: F Source: [place] 10:23 AM [facility] REPOSITORY TYPE CODE TESTS RESULT OUT OF RANGE REFERENCE UNITS LAB L100.1000 4.4-11.0 K/mm3 Low WBC 4.2 LAB L100.1200 4.2-5.4 M/mm3 Low RBC 3.69 LAB L100.1300 12.0-15.0 g/dl Normal HGB 13.1 LAB L100.1400 37-47 % Normal HCT 38.8 LAB L100.1500 81-99 fL High MCV 105.1 LAB L100.1600 27.0-32.0 pg High MCH 35.5 LAB L100.1700 32-36 g/gl Normal MCHC 33.8 LAB L100.1810 11.6-14.6 % High RDW CV 14.8 LAB L100.1820 35.1-43.9 fl High RDW SD 55.6 LAB L100.1900 150-450 K/mm3 Normal PLT 238 LAB L100.2000 6.2-12.0 fl Normal MPV 10.5 LAB L100.2100 47-70 % High NEUT% 84.4 LAB L100.2200 19-41 % Low LY% 6.5 LAB L100.2300 0-10 % Normal MONO% 6.0 LAB L100.2400 0-5 % Normal EO% 2.2 LAB L100.2500 0-1 % Normal BASO% 0.7 LAB L100.2550 0.0-0.9 % Normal IM GRAN % 0.200 Result Comment: IG% - Immature Granulocytes (promyelocytes, myelocytes and metamyelocytes) > 1% indicates that a LEFT SHIFT is Present. LAB L100.2620 2.0-7.7 X10 3/uL Normal Absolute Neut 3.5 LAB L100.2720 0.83-4.51 X10 3/ul Low Absolute Lymph 0.27 LAB L100.5500 ADEQ Normal PLT EST ADEQUATE LAB L100.7900 Normal BASO STIP RARE Performed By: #### L100.0100 #### [facility] [address] [place], [address] PROGRESS Observed: 08/31/2017 Status: COMPLETED Source: [place] 11:13 AM [facility] REPOSITORY HNO ID: [id number] Author: Robert Nesbitt) Service: (none) Author Type: Physician Type: Progress Notes Filed: 08/31/2017 11:14 AM Note Text: *08/23/17 unremarkable hep b core tot, hep c vir ab and IGs (IgG, IgM, IgA) CNOV Observed: 08/24/2017 Status: COMPLETED Source: [place] 10:00 AM [facility] REPOSITORY Office Visit (RHEUST) SYLVIA RAMIREZ ([id number]) 1955 F CHT Date Time Provider Department 08/24/17 10:00 AM ROBERT NESBITT) [place] During your visit today, we recorded the following information about you: Temperature Pulse Blood pressure Weight 97.6 degrees 68/minute 120/65 64.4 kg Height 1.613 m Robert Nesbitt MD 08/24/2017 10:55 AM Addendum On 08/24/2017, I had the pleasure of seeing Sylvia Ramirez at the [facility] for follow-up of anti-synthetase syndrome on AZA. HPI: To review, Sylvia Ramirez is a 62 year old female - In October, noted onset of wrist swelling. Found to have a +PATRICK - In Jan, seen by outside rheumatology with joint pain and finger rash. Diagnosed with inflammatory arthritis. Started on MTX but stopped by patient 2 weeks laters - In Mar, developed joint stiffness so MTX restarted - In early Apr, MTX stopped due to elevated LFTs - In late Apr, established care with Dr. Fitzpatrick in [facility] rheumatology with joint pain, myalgias, and rash. Labs with CK 1726, +PATRICK, and +Sheila-1. 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 - In May, started on MTX 20mg PO weekly - In July, symptoms and lab worsening. MTX stopped. Indeterminate TB so eventually saw ID and cleared to resume immunosuppression. - In September, started imuran - In Dec, reported improved symptoms but with some wrist pain and swelling. Dr. Fitzpatrick has been cautious with imuran dosage increases given hx of breast cancer. No medication changes made. - On May 15, 2014 found to have higher CK 1400<370. Dr. Fitzpatrick increased to imuran 200mg daily and started prednisone taper with plans to recheck labs 4 weeks later. - In late Apr, reported improved stiffness in PIPs and DIPs. With slight rash over distal fingertips. Was on prednisone 15mg daily with plans for taper by 5mg weekly. No muscle weakness. - In July, reported feeling well. Baseline aches in joints and muscles. Rash stable. Off prednisone, last dose in May. AZA 200mg/day continued - In Nov, placed on pred 10mg/day given high CK - In Mar, reported feeling well w/o any joint or muscle pain. No weakness or rash. - In early May, CK ~4000 although she felt well. Advised consideration of rituxan. She opted for prednisone 40mg with taper to 5mg/day. - June, had episode of cellulitis over L arm. Held AZA x8-9 days, restarted on 07/14/14 - In July, reported no muscle pain or weakness on pred 5mg/day x2 weeks. - In September, decreased to pred 4mg/day - In mid-Nov, alternated pred 4mg/5mg qod - In Dec, reported feeling well. - In Apr, reported feeling well on pred 5mg/day. Decreased to pred 4mg and 5mg alternating qod - In June, elevated CK to 2987 with increased weakness. Increased to prednisone 10mg/day. Adding rituxan was discussed, but deferred given subsequent improvement - In interim, started on prolia - In Nov, reported feeling well on pred 5mg/day. - In early Feb, increased to pred 20mg/day with taper to 5mg/day per PCP for flare involving wrist swelling. CK 900s - In Apr, reported feeling well. - In June, CK 1400s. Discussed starting rituxan - Today, reports feeling well - Came back from [facility] last week - Would like to take grandson to [facility] next year PAST MEDICAL HISTORY Diagnosis Date - Malignant neoplasm of breast (female), unspecified site Breast cancer, left PAST SURGICAL HISTORY Procedure Laterality Date - APPENDECTOMY - BREAST BIOPSY 02/06/2015 Left breast - CARPAL TUNNEL RIGHT WRIST 05/2009 - CORRECT BUNION,SIMPLE Bunion, bilateral - HYSTERECTOMY HX 2007 laparoscopic and vaginal total hysterectomy - KNEE SCOPE,DIAGNOSTIC Arthroscopy, knee- left - MASTEC PARTIAL W AXILL NODE REMOV 07-06-06 sentinel node biopsy, left - PAST SURGICAL HISTORY OF 2006 Left lumpectomy - PAST SURGICAL HISTORY OF 02/2011 Carpal tunnel decomp left wrist - PAST SURGICAL HISTORY OF 07/2010 abdominoplasty;left breast reconstruction, right breast mastopexy - PAST SURGICAL HISTORY OF 11/2011 breast reconstruction left - PAST SURGICAL HISTORY OF 03/2015 Right foot - REMOVAL OF TONSILS,<12 Y/O Tonsillectomy - REPAIR INCISIONAL HERNIA,REDUCIBLE 1998 abdominal Review of patient's allergies indicates: No Known Allergies MEDICATIONS: Current Outpatient Prescriptions: predniSONE (DELTASONE) 5 mg tablet Take 15mg/day x1 week, then 10mg/day x1 week, then 5mg/day thereafter azaTHIOprine (IMURAN) 50 mg tablet TAKE 4 TABLETS BY MOUTH ONCE A DAY predniSONE (DELTASONE) 1 mg tablet Take 5mg/day traMADol (ULTRAM) 50 mg tablet Take 1 tablet by mouth once daily as needed. MULTIVITAMIN,THER AND MINERALS (VITAMINS AND MINERALS ORAL) Take by mouth. PEPSIN/BETAINE HCL (PEPSIN-BETAINE ORAL) Take by mouth. IRON FUM,PS CMP/VIT C/NIACIN (INTEGRA ORAL) Take by mouth. PEC,CITRUS/INOSITOL/VIT C/SOYB (MODIFIED CITRUS PECTIN ORAL) Take by mouth. BiotaGen capsules (Klaire/Prothera) 4 capsules once daily Glutathione (SpoonRocket) 8 pumps twice daily Magnesium Citrate 150mg [address] ct[address] (Pure Encapsulations) Take 3 capsules daily at night B-Complex Plus (Pure Encapsulations) Take 1 capsule by mouth daily with food. PureGenomics Multivitamin (Pure Encapsulations) Take 1 capsule by mouth daily with food. Hepato-Thera Forte (Klaire/Prothera) Take 1 capsule by mouth daily at bedtime. CurcumaSorb (Pure Encapsulations) 2?-3 capsules daily between meals LACTOBACILLUS COMBINATION NO.8 (ADULT PROBIOTIC ORAL) Take by mouth. OTC NUTRITIONAL SUPPLEMENT once daily. Immune activator Nature's Way ACETAMINOPHEN/DIPHENHYDRAMINE (TYLENOL PM ORAL) Take 1 tablet by mouth daily at bedtime. Diclofenac Sodium (VOLTAREN) 1 % gel Apply moderate amount to painful areas on hands (2g) up to four times daily as needed. Don't exceed a total of 32g daily. turmeric root extract 500 mg cap Take by mouth once daily. Cholecalciferol, Vitamin D3, (VITAMIN D) 1,000 unit ORAL Tab Take one(1) tablet daily. omega-3 fatty acids 1,000 mg ORAL Cap Take one(1) capsule daily. No current facility-administered medications for this visit. FAMILY HISTORY Problem Relation Age of Onset - Breast Cancer Mother 67 - Breast Cancer Sister 46 - Breast Cancer Paternal Grandmother 75 - Breast Cancer Maternal Aunt 57 - Breast Cancer Maternal Aunt 55 - Colon Cancer Mother - Arthritis Father Gout - Cancer Other First cousin; lymphoma. SOCIAL HISTORY: Lives in [place]. 2 kids and 1 grandson Davis (in [place]) who is turned 4 in June. Son is PT in [place], son-in-law who is local is mechanical manufacturing technician. Tobacco Use: 1 pack/day, for 10 years. Quit 08/20/1979. Types: Cigarettes Alcohol Use: Approximately 0 oz/week (About one serving per month ) REVIEW OF SYSTEMS: Reviewed 02/06 systems, as above and as below: RESPIRATORY: Chronic cough MUSCULOSKELETAL: Joint swelling, Morning stiffness in joints SKIN: Color changes of hands or feet in the cold ALLERGIC/ IMMUNOLOGIC: Allergies (other than medications) PHYSICAL EXAM: VITALS: Blood pressure 120/65, pulse 68, temperature 36.4 ?C (97.6 ?F), temperature source Oral, height 161.3 cm (5' 3.5), weight 64.4 kg (142 lb). CONSTITUTIONAL: Well-appearing, in NAD. SKIN: No rash. No alopecia. No sclerodactyly, calcinosis, telangiectasias, digitial ulcers, or skin thickening. EYES: No scleral icterus or conjunctivitis, PERRLA. ENT and Mouth: External ears normal. Nares normal. Mucous membranes normal. Oropharynx normal. NECK: No lymphadenopathy RESPIRATORY: Normal breath sounds, no significant crackles CARDIOVASCULAR: Regular rate and rhythm, no murmurs or rubs GASTROENTEROLOGY: Normal bowel sounds. Abdomen is soft and non-tender. EXTREMITIES/LYMPH: No edema bilaterally NEURO: Awake, alert and oriented, normal gait, strength 5/5 intact over upper and lower extremity muscles bilaterally MUSCULOSKELETAL: JOINT APPEARANCE: With Heberden's and Anam's nodes. No erythema or warmth of any upper or lower extremity joint. RANGE OF MOTION: Able to fully close fists bilaterally. SWOLLEN JOINTS/SYNOVITIS: No synovitis TENDER JOINTS: None LABORATORY: *08/23/17 high CK 909, low wbc 3.5 (4.4-11), and high AST 44 with unremarkable hgb, plt, cr, and alt *06/18/17 high CK 1418 *03/23/17 high AST 49 and high ck 924 with unremarkable wbc, hgb, plt, alt, and cr *12/17/16 high CK 1800s *10/08/16 high CK 1661 with wbc 5.2, hgb 13.3, plt 210, cr 0.4, alt 54 and ast 58 (ULN 37) *08/26/16 high ESR 39 (ULN 30), high CRP 4.67 (ULN 3), and unremarkable hep a/b/c (+hep A total with neg IgM indicating immunity) *05/13/16 High CK 1840 (ULN 192) and high AST 76 (37) with unremarkable wbc, hgb, p, cr, and ALT *Mar high CK 1210 *01/22/16 TA bx negative for GCA, with mild intimal hyperplasia. Steroids getting weaned by PCP *01/10/16 outside labs: high ESR 79 and CRP 192 with unremarkable CBC Component Latest Ref Rng 06/25/2015 07/16/2015 08/09/2015 09/17/2015 10/18/2015 11/15/2015 12/10/2015 CK 30 - 220 U/L 1216 (H) 1522 (H) 2111 (H) 1787 (H) 1315 (H) 1733 (H) 1587 (H) Component Latest Ref Rng 06/12/2014 07/10/2014 08/07/2014 CK 30 - 220 U/L 1405 (H) 1124 (H) 909 (H) WSR 0 - 15 mm/hr 11 15 CRP 0.0 - 1.0 mg/dL 0.8 0.7 Sm Antibody <1.0 AI <0.2 PILE DRIVER OPERATOR BARGE MOUNTED Antibody <1.0 AI <0.2 SSA Antibody <1.0 AI <0.2 SSB Antibody <1.0 AI <0.2 Centromere Ab <1.0 AI <0.2 Scleroderma Ab, IgG <1.0 AI <0.2 Sheila 1 Antibody <1.0 AI >8.0 (H) Ribosomal PILE DRIVER OPERATOR BARGE MOUNTED <1.0 AI <0.2 Chromatin Antibody <1.0 AI <0.2 Bilirubin, Conjug 0.0 - 0.4 mg/dL 0.1 CRP 0.0 - 1.0 mg/dL 2.5 (H) WSR 0 - 15 mm/hr 20 (H) CCP Antibody, IgG <20 Units <15 PATRICK by EIA <1.5 OD Ratio 5.0 (H) Aldolase 1.5 - 8.1 U/L 40.9 (H) Myoglobin, Serum 30 - 90 ng/mL 632 (H) CK 30 - 220 U/L 1726 (H) STUDIES: *Feb PFTs- unremarkable * outside DEXA- osteoporosis, L fem neck t-score -2.5 *Jan outside DEXA- reportedly with osteopenia *Jan PFTs- IMPRESSION: Small airway obstruction. Normal total lung capacity. Normal gas exchange. 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 Elevated CK but stable. Of note, with personal hx of breast cancer. - Continue imuran 200mg daily along with routine lab monitoring - Continue prednisone 5mg. Reviewed potential side effects of prednisone including GI ulcer, hypertension, elevated blood glucose, weight gain, striae, cataracts, glaucoma, increased infection risk, glucocorticoid-induced osteoporosis, and avascular necrosis that sometimes requires joint replacement. - Check labs every 2 months. Notify of results via [facility] [place]. - Continue pulmonary follow-up, to see again in Feb - Advised that if CK level significantly increases in future again, would advise treatment modification with addition of rituxan. R/B/A discussed, printed information on medication provided for review in past - Continue tramadol (last filled in Nov) 2. Finger pain: Likely OA - Continue voltaren gel prn - Continue tylenol prn 3. Osteopenia: Per Jan DEXA. Had not resumed boniva. - Continue prolia via another provider - Continue ca and vit D - Check DEXA in Jan 4. Leukopenia: Likely due to recent infection and antibiotic use. - Recheck CBC with diff in 2 weeks. Printed and signed order provided 5. General health maintenance: - Advised to continue follow-up with PCP for routine health maintenance and malignancy screening Follow-up in 4 months. Patient was instructed to call if any questions or concerns. Thank you for allowing me to participate in the care of your patient. MD Robert Hurd MD 08/24/2017 10:30 AM Signed Please have just a CBC with differential checked in 2 weeks. Referring Provider: ROBERT NESBITT) [[id number]] Allergies As of Date: 08/24/2017 (No Known Allergies) Date Reviewed: 08/24/2017 Reviewed by: Saundra Forde Ma - Fully Assessed Reason for Visit: Established Patient [175] Primary Visit Diagnosis: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] Other Visit Diagnoses:ILD (interstitial lung disease) (HCC) [J84.9] technician terminal and repeater current use of immunosuppressive drug [Z79.899] technician terminal and repeater current use of systemic steroids [Z79.52] Osteopenia, unspecified location [M85.80] Leukopenia, unspecified type [D72.819] Order(s):CBC + DIFF [SQCBCDIF] Order #: [id number] FUTURE Prescriptions as of 08/24/2017 Sig: PREDNISONE 5 MG TABLET Take 15mg/day x1 week, then 1* AZATHIOPRINE 50 MG TABLET TAKE 4 TABLETS BY MOUTH ONCE * PREDNISONE 1 MG TABLET Take 5mg/day TRAMADOL 50 MG TABLET Take 1 tablet by mouth once d* VITAMINS AND MINERALS ORAL Take by mouth. PEPSIN-BETAINE ORAL Take by mouth. INTEGRA ORAL Take by mouth. MODIFIED CITRUS PECTIN ORAL Take by mouth. OTC NUTRITIONAL SUPPLEMENT 4 capsules once daily OTC NUTRITIONAL SUPPLEMENT 8 pumps twice daily OTC NUTRITIONAL SUPPLEMENT Take 3 capsules daily at night OTC NUTRITIONAL SUPPLEMENT Take 1 capsule by mouth daily* OTC NUTRITIONAL SUPPLEMENT Take 1 capsule by mouth daily* OTC NUTRITIONAL SUPPLEMENT Take 1 capsule by mouth daily* OTC NUTRITIONAL SUPPLEMENT 2?-3 capsules daily between m* ADULT PROBIOTIC ORAL Take by mouth. OTC NUTRITIONAL SUPPLEMENT once daily. Immune activator * TYLENOL PM ORAL Take 1 tablet by mouth daily * DICLOFENAC 1 % TOPICAL GEL Apply moderate amount to pain* TURMERIC ROOT EXTRACT 500 MG * Take by mouth once daily. * CHOLECALCIFEROL (VITAMIN D3) * Take one(1) tablet daily. * OMEGA-3 FATTY ACIDS 1,000 MG * Take one(1) capsule daily. Problem List As Of Date 08/24/2017 Noted Resolved BREAST CANCER LOWER OUTER [C50.519] INVALID FOR* CERVICALGIA [M54.2] INVALID FOR* Constipation [K59.00] INVALID FOR* Localized adiposity [E65] INVALID FOR* Personal history of malignant neoplasm of breas*INVALID FOR* Antisynthetase syndrome [D89.89] INVALID FOR* ILD (interstitial lung disease) ([facility]) [J84.9] INVALID FOR* High risk medication use [Z79.899] INVALID FOR* Heavy metal exposure [Z77.018] INVALID FOR* Other instructions from your clinician: Please have just a CBC with differential checked in 2 weeks. Disposition: Return in about 4 months (around 12/25/2017). Follow-up and Disposition History Recorded Encounter Status:Closed by ROBERT NESBITT MD on 08/24/17 PROGRESS Observed: 08/24/2017 Status: COMPLETED Source: [place] 9:47 AM [facility] REPOSITORY HNO ID: [id number] Author: Robert Orr) Carlos Service: (none) Author Type: Physician Type: Progress Notes Filed: 08/24/2017 10:55 AM Note Text: On 08/24/2017, I had the pleasure of seeing Sylvia Ramirez at the [facility] for follow-up of anti-synthetase syndrome on AZA. HPI: To review, Sylvia Ramirez is a 62 year old female - In October, noted onset of wrist swelling. Found to have a +PATRICK - In Jan, seen by outside rheumatology with joint pain and finger rash. Diagnosed with inflammatory arthritis. Started on MTX but stopped by patient 2 weeks laters - In Mar, developed joint stiffness so MTX restarted - In early Apr, MTX stopped due to elevated LFTs - In late Apr, established care with Dr. Fitzpatrick in [facility] rheumatology with joint pain, myalgias, and rash. Labs with CK 1726, +PATRICK, and +Sheila-1. 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 - In May, started on MTX 20mg PO weekly - In July, symptoms and lab worsening. MTX stopped. Indeterminate TB so eventually saw ID and cleared to resume immunosuppression. - In September, started imuran - In Dec, reported improved symptoms but with some wrist pain and swelling. Dr. Fitzpatrick has been cautious with imuran dosage increases given hx of breast cancer. No medication changes made. - On May 15, 2014 found to have higher CK 1400<370. Dr. Fitzpatrick increased to imuran 200mg daily and started prednisone taper with plans to recheck labs 4 weeks later. - In late Apr, reported improved stiffness in PIPs and DIPs. With slight rash over distal fingertips. Was on prednisone 15mg daily with plans for taper by 5mg weekly. No muscle weakness. - In July, reported feeling well. Baseline aches in joints and muscles. Rash stable. Off prednisone, last dose in May. AZA 200mg/day continued - In Nov, placed on pred 10mg/day given high CK - In Mar, reported feeling well w/o any joint or muscle pain. No weakness or rash. - In early May, CK ~4000 although she felt well. Advised consideration of rituxan. She opted for prednisone 40mg with taper to 5mg/day. - June, had episode of cellulitis over L arm. Held AZA x8-9 days, restarted on 07/14/14 - In July, reported no muscle pain or weakness on pred 5mg/day x2 weeks. - In September, decreased to pred 4mg/day - In mid-Nov, alternated pred 4mg/5mg qod - In Dec, reported feeling well. - In Apr, reported feeling well on pred 5mg/day. Decreased to pred 4mg and 5mg alternating qod - In June, elevated CK to 2987 with increased weakness. Increased to prednisone 10mg/day. Adding rituxan was discussed, but deferred given subsequent improvement - In interim, started on prolia - In Nov, reported feeling well on pred 5mg/day. - In early Feb, increased to pred 20mg/day with taper to 5mg/day per PCP for flare involving wrist swelling. CK 900s - In Apr, reported feeling well. - In June, CK 1400s. Discussed starting rituxan - Today, reports feeling well - Came back from [place] last week - Would like to take grandson to [facility] next year PAST MEDICAL HISTORY Diagnosis Date - Malignant neoplasm of breast (female), unspecified site Breast cancer, left PAST SURGICAL HISTORY Procedure Laterality Date - APPENDECTOMY - BREAST BIOPSY 02/06/2015 Left breast - CARPAL TUNNEL RIGHT WRIST 05/2009 - CORRECT BUNION,SIMPLE Bunion, bilateral - HYSTERECTOMY HX 2007 laparoscopic and vaginal total hysterectomy - KNEE SCOPE,DIAGNOSTIC Arthroscopy, knee- left - MASTEC PARTIAL W AXILL NODE REMOV 07-06-06 sentinel node biopsy, left - PAST SURGICAL HISTORY OF 2006 Left lumpectomy - PAST SURGICAL HISTORY OF 02/2011 Carpal tunnel decomp left wrist - PAST SURGICAL HISTORY OF 07/2010 abdominoplasty;left breast reconstruction, right breast mastopexy - PAST SURGICAL HISTORY OF 11/2011 breast reconstruction left - PAST SURGICAL HISTORY OF 03/2015 Right foot - REMOVAL OF TONSILS,<12 Y/O Tonsillectomy - REPAIR INCISIONAL HERNIA,REDUCIBLE 1998 abdominal Review of patient's allergies indicates: No Known Allergies MEDICATIONS: Current Outpatient Prescriptions: predniSONE (DELTASONE) 5 mg tablet Take 15mg/day x1 week, then 10mg/day x1 week, then 5mg/day thereafter azaTHIOprine (IMURAN) 50 mg tablet TAKE 4 TABLETS BY MOUTH ONCE A DAY predniSONE (DELTASONE) 1 mg tablet Take 5mg/day traMADol (ULTRAM) 50 mg tablet Take 1 tablet by mouth once daily as needed. MULTIVITAMIN,THER AND MINERALS (VITAMINS AND MINERALS ORAL) Take by mouth. PEPSIN/BETAINE HCL (PEPSIN-BETAINE ORAL) Take by mouth. IRON FUM,PS CMP/VIT C/NIACIN (INTEGRA ORAL) Take by mouth. PEC,CITRUS/INOSITOL/VIT C/SOYB (MODIFIED CITRUS PECTIN ORAL) Take by mouth. BiotaGen capsules (Klaire/Prothera) 4 capsules once daily Glutathione (SpoonRocket) 8 pumps twice daily Magnesium Citrate 150mg [address] ct[address] (Pure Encapsulations) Take 3 capsules daily at night B-Complex Plus (Pure Encapsulations) Take 1 capsule by mouth daily with food. PureGenomics Multivitamin (Pure Encapsulations) Take 1 capsule by mouth daily with food. Hepato-Thera Forte (Klaire/Prothera) Take 1 capsule by mouth daily at bedtime. CurcumaSorb (Pure Encapsulations) 2?-3 capsules daily between meals LACTOBACILLUS COMBINATION NO.8 (ADULT PROBIOTIC ORAL) Take by mouth. OTC NUTRITIONAL SUPPLEMENT once daily. Immune activator Nature's Way ACETAMINOPHEN/DIPHENHYDRAMINE (TYLENOL PM ORAL) Take 1 tablet by mouth daily at bedtime. Diclofenac Sodium (VOLTAREN) 1 % gel Apply moderate amount to painful areas on hands (2g) up to four times daily as needed. Don't exceed a total of 32g daily. turmeric root extract 500 mg cap Take by mouth once daily. Cholecalciferol, Vitamin D3, (VITAMIN D) 1,000 unit ORAL Tab Take one(1) tablet daily. omega-3 fatty acids 1,000 mg ORAL Cap Take one(1) capsule daily. No current facility-administered medications for this visit. FAMILY HISTORY Problem Relation Age of Onset - Breast Cancer Mother 67 - Breast Cancer Sister 46 - Breast Cancer Paternal Grandmother 75 - Breast Cancer Maternal Aunt 57 - Breast Cancer Maternal Aunt 55 - Colon Cancer Mother - Arthritis Father Gout - Cancer Other First cousin; lymphoma. SOCIAL HISTORY: Lives in [place]. 2 kids and 1 grandson Davis (in [place]) who is turned 4 in June. Son is PT in [place], son-in-law who is local is mechanical manufacturing technician. Tobacco Use: 1 pack/day, for 10 years. Quit 08/20/1979. Types: Cigarettes Alcohol Use: Approximately 0 oz/week (About one serving per month ) REVIEW OF SYSTEMS: Reviewed 02/06 systems, as above and as below: RESPIRATORY: Chronic cough MUSCULOSKELETAL: Joint swelling, Morning stiffness in joints SKIN: Color changes of hands or feet in the cold ALLERGIC/ IMMUNOLOGIC: Allergies (other than medications) PHYSICAL EXAM: VITALS: Blood pressure 120/65, pulse 68, temperature 36.4 ?C (97.6 ?F), temperature source Oral, height 161.3 cm (5' 3.5), weight 64.4 kg (142 lb). CONSTITUTIONAL: Well-appearing, in NAD. SKIN: No rash. No alopecia. No sclerodactyly, calcinosis, telangiectasias, digitial ulcers, or skin thickening. EYES: No scleral icterus or conjunctivitis, PERRLA. ENT and Mouth: External ears normal. Nares normal. Mucous membranes normal. Oropharynx normal. NECK: No lymphadenopathy RESPIRATORY: Normal breath sounds, no significant crackles CARDIOVASCULAR: Regular rate and rhythm, no murmurs or rubs GASTROENTEROLOGY: Normal bowel sounds. Abdomen is soft and non-tender. EXTREMITIES/LYMPH: No edema bilaterally NEURO: Awake, alert and oriented, normal gait, strength 5/5 intact over upper and lower extremity muscles bilaterally MUSCULOSKELETAL: JOINT APPEARANCE: With Heberden's and Anam's nodes. No erythema or warmth of any upper or lower extremity joint. RANGE OF MOTION: Able to fully close fists bilaterally. SWOLLEN JOINTS/SYNOVITIS: No synovitis TENDER JOINTS: None LABORATORY: *08/23/17 high CK 909, low wbc 3.5 (4.4-11), and high AST 44 with unremarkable hgb, plt, cr, and alt *06/18/17 high CK 1418 *03/23/17 high AST 49 and high ck 924 with unremarkable wbc, hgb, plt, alt, and cr *12/17/16 high CK 1800s *10/08/16 high CK 1661 with wbc 5.2, hgb 13.3, plt 210, cr 0.4, alt 54 and ast 58 (ULN 37) *08/26/16 high ESR 39 (ULN 30), high CRP 4.67 (ULN 3), and unremarkable hep a/b/c (+hep A total with neg IgM indicating immunity) *05/13/16 High CK 1840 (ULN 192) and high AST 76 (37) with unremarkable wbc, hgb, p, cr, and ALT *Mar high CK 1210 *01/22/16 TA bx negative for GCA, with mild intimal hyperplasia. Steroids getting weaned by PCP *01/10/16 outside labs: high ESR 79 and CRP 192 with unremarkable CBC Component Latest Ref Rng 06/25/2015 07/16/2015 08/09/2015 09/17/2015 10/18/2015 11/15/2015 12/10/2015 CK 30 - 220 U/L 1216 (H) 1522 (H) 2111 (H) 1787 (H) 1315 (H) 1733 (H) 1587 (H) Component Latest Ref Rng 06/12/2014 07/10/2014 08/07/2014 CK 30 - 220 U/L 1405 (H) 1124 (H) 909 (H) WSR 0 - 15 mm/hr 11 15 CRP 0.0 - 1.0 mg/dL 0.8 0.7 Sm Antibody <1.0 AI <0.2 PILE DRIVER OPERATOR BARGE MOUNTED Antibody <1.0 AI <0.2 SSA Antibody <1.0 AI <0.2 SSB Antibody <1.0 AI <0.2 Centromere Ab <1.0 AI <0.2 Scleroderma Ab, IgG <1.0 AI <0.2 Sheila 1 Antibody <1.0 AI >8.0 (H) Ribosomal PILE DRIVER OPERATOR BARGE MOUNTED <1.0 AI <0.2 Chromatin Antibody <1.0 AI <0.2 Bilirubin, Conjug 0.0 - 0.4 mg/dL 0.1 CRP 0.0 - 1.0 mg/dL 2.5 (H) WSR 0 - 15 mm/hr 20 (H) CCP Antibody, IgG <20 Units <15 PATRICK by EIA <1.5 OD Ratio 5.0 (H) Aldolase 1.5 - 8.1 U/L 40.9 (H) Myoglobin, Serum 30 - 90 ng/mL 632 (H) CK 30 - 220 U/L 1726 (H) STUDIES: *Feb PFTs- unremarkable *Jan/Feb outside DEXA- osteoporosis, L fem neck t-score -2.5 *Jan outside DEXA- reportedly with osteopenia *Jan PFTs- IMPRESSION: Small airway obstruction. Normal total lung capacity. Normal gas exchange. 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 Elevated CK but stable. Of note, with personal hx of breast cancer. - Continue imuran 200mg daily along with routine lab monitoring - Continue prednisone 5mg. Reviewed potential side effects of prednisone including GI ulcer, hypertension, elevated blood glucose, weight gain, striae, cataracts, glaucoma, increased infection risk, glucocorticoid-induced osteoporosis, and avascular necrosis that sometimes requires joint replacement. - Check labs every 2 months. Notify of results via [facility]. - Continue pulmonary follow-up, to see again in Feb - Advised that if CK level significantly increases in future again, would advise treatment modification with addition of rituxan. R/B/A discussed, printed information on medication provided for review in past - Continue tramadol (last filled in Nov) 2. Finger pain: Likely OA - Continue voltaren gel prn - Continue tylenol prn 3. Osteopenia: Per Jan DEXA. Had not resumed boniva. - Continue prolia via another provider - Continue ca and vit D - Check DEXA in Jan 4. Leukopenia: Likely due to recent infection and antibiotic use. - Recheck CBC with diff in 2 weeks. Printed and signed order provided 5. General health maintenance: - Advised to continue follow-up with PCP for routine health maintenance and malignancy screening Follow-up in 4 months. Patient was instructed to call if any questions or concerns. Thank you for allowing me to participate in the care of your patient. Robert Nesbitt MD LIVER PROFILE Collected: 08/23/2017 Status: F Source: [place] 9:34 AM [facility] REPOSITORY TYPE CODE TESTS RESULT OUT OF RANGE REFERENCE UNITS LAB L501.1500 6.4-8.2 g/dL Normal T PROT 7.3 LAB L501.1800 3.2-5.0 g/dL Normal ALB 3.5 LAB L501.1950 2.2-4.2 g/dL Normal GLOB 3.8 LAB L501.4100 15-37 U/L High AST 44 LAB L501.4305 45-117 U/L Normal ALK P 52 LAB L501.4405 13-56 U/L Normal ALT 49 LAB L501.4600 0.20-1.00 mg/dL Normal T BILI 0.70 LAB L501.4700 0.00-0.30 mg/dL Normal D BILI 0.16 Performed By: #### L500.3400, L501.1105, L501.3620 #### [facility] [address] [place], [place], [id number] SERUM CREATININE AND Collected: 08/23/2017 Status: F Source: [place] GFR 9:34 AM [facility] REPOSITORY TYPE CODE TESTS RESULT OUT OF RANGE REFERENCE UNITS LAB L501.1100 0.55-1.02 mg/dL Low 0.43 CREAT,SERUM Result Comment: The validity of the calculated GFR AND GFRAA in patients over 70 years has not been determined. Clinical correlation is essential. LAB L501.1110 >60 mL/min Normal EST GFR 159 Result Comment: Non- GFR Calc LAB L501.1115 >60 mL/min Normal EST GFR - AA 192 Result Comment: GFR Calc Performed By: #### L500.3400, L501.1105, L501.3620 #### [facility] [address] [place], [place], [id number] CPK TOTAL, CREATINE Collected: 08/23/2017 Status: F Source: [place] KINASE 9:34 AM [facility] REPOSITORY TYPE CODE TESTS RESULT OUT OF RANGE REFERENCE UNITS LAB L501.3620 26-192 U/L High CPK TOTAL 909 Performed By: #### L500.3400, L501.1105, L501.3620 #### [facility] [address] [place], [place], [address] CBC-COMPLETE BLOOD CNT Collected: 08/23/2017 Status: F Source: [place] NO DIFF 9:34 AM [facility] REPOSITORY TYPE CODE TESTS RESULT OUT OF RANGE REFERENCE UNITS LAB L100.1000 4.4-11.0 K/mm3 Low WBC 3.5 LAB L100.1200 4.2-5.4 M/mm3 Low RBC 3.87 LAB L100.1300 12.0-15.0 g/dl Normal HGB 14.0 LAB L100.1400 37-47 % Normal HCT 41.3 LAB L100.1500 81-99 fL High MCV 106.7 LAB L100.1600 27.0-32.0 pg High MCH 36.2 LAB L100.1700 32-36 g/gl Normal MCHC 33.9 LAB L100.1810 11.6-14.6 % High RDW CV 14.9 LAB L100.1820 35.1-43.9 fl High RDW SD 58.0 LAB L100.1900 150-450 K/mm3 Normal PLT 228 LAB L100.2000 6.2-12.0 fl Normal MPV 10.1 Performed By: #### L100.0500 #### [facility] [address] [place], [place], [address] HEPATITIS B SURFACE Collected: 08/23/2017 Status: F Source: [place] AG 9:23 AM [facility] REPOSITORY Order Comment: Is Patient Fasting? N TYPE CODE TESTS RESULT OUT OF RANGE REFERENCE UNITS LAB L3100.0400 Negative Normal HB Negative SURF AG Performed By: #### L3100.0390, L3100.0460, L3100.0528, L3100.0625, L3200.1200 #### [facility] (refer to report for specific site) refer to report for address and phone number HEPATITIS B CORE AB Collected: 08/23/2017 Status: F Source: [place] TOTAL 9:23 AM [facility] REPOSITORY Order Comment: Is Patient Fasting? N TYPE CODE TESTS RESULT OUT OF RANGE REFERENCE UNITS LAB L3100.0460 Negative Normal HEP B Negative CORE,TOT Result Comment: Performed at: [facility] [id number] Charge Poster: Arsh Cuellar PhD, Phone: [phone] Performed By: #### L3100.0390, L3100.0460, L3100.0528, L3100.0625, L3200.1200 #### [facility] (refer to report for specific site) refer to report for address and phone number HEP B SURFACE Collected: 08/23/2017 Status: F Source: [place] ANTIBODIES 9:23 AM [facility] REPOSITORY Order Comment: Is Patient Fasting? N TYPE CODE TESTS RESULT OUT OF RANGE REFERENCE UNITS LAB L3100.0528 . Normal Hep B Reactive Michael AB Result Comment: Non Reactive: Inconsistent with immunity, less than 10 mIU/mL Reactive: Consistent with immunity, greater than 9.9 mIU/mL Performed By: #### L3100.0390, L3100.0460, L3100.0528, L3100.0625, L3200.1200 #### [facility] (refer to report for specific site) refer to report for address and phone number HEPATITIS C ANTIBODIES Collected: 08/23/2017 Status: F Source: [place] 9:23 AM [facility] REPOSITORY Order Comment: Is Patient Fasting? N TYPE CODE TESTS RESULT OUT OF RANGE REFERENCE UNITS LAB L3100.0650 0.0-0.9 s/co ratio Normal HEP C AB 0.1 Result Comment: Negative: < 0.8 Indeterminate: 0.8 - 0.9 Positive: > 0.9 The CDC recommends that a positive HCV antibody result be followed up with a HCV Nucleic Acid Amplification test (601819). Performed By: #### L3100.0390, L3100.0460, L3100.0528, L3100.0625, L3200.1200 #### [facility] (refer to report for specific site) refer to report for address and phone number IMMUNOGLOBULINS G/A/M Collected: 08/23/2017 Status: F Source: [place] 9:23 AM [facility] REPOSITORY Order Comment: Is Patient Fasting? N TYPE CODE TESTS RESULT OUT OF RANGE REFERENCE UNITS LAB L3200.0130 370-6734 mg/dL Normal IMMUNO G 1092 LAB L3200.1400 87-352 mg/dL Normal IMMUNO A 165 LAB L3200.1500 26-217 mg/dL Normal IMMUNOGL M 202 Performed By: #### L3100.0390, L3100.0460, L3100.0528, L3100.0625, L3200.1200 #### [facility] (refer to report for specific site) refer to report for address and phone number PROGRESS Observed: 07/27/2017 Status: COMPLETED Source: [place] 8:11 AM [facility] REPOSITORY HNO ID: [id number] Author: Robert Orr) Carlos Service: (none) Author Type: Physician Type: Progress Notes Filed: 07/27/2017 8:11 AM Note Text: Labs done on 07/14/17 with high AST 57 and unremarkable wbc, hgb, plt, Cr and ALT CBC-COMPLETE BLOOD CNT Collected: 07/14/2017 Status: F Source: [place] NO DIFF 2:18 PM [facility] REPOSITORY TYPE CODE TESTS RESULT OUT OF RANGE REFERENCE UNITS LAB L100.1000 4.4-11.0 K/mm3 Normal WBC 4.9 LAB L100.1200 4.2-5.4 M/mm3 Low RBC 3.67 LAB L100.1300 12.0-15.0 g/dl Normal HGB 13.1 LAB L100.1400 37-47 % Normal HCT 39.0 LAB L100.1500 81-99 fL High MCV 106.3 LAB L100.1600 27.0-32.0 pg High MCH 35.7 LAB L100.1700 32-36 g/gl Normal MCHC 33.6 LAB L100.1810 11.6-14.6 % High RDW CV 15.0 LAB L100.1820 35.1-43.9 fl High RDW SD 57.7 LAB L100.1900 150-450 K/mm3 Normal PLT 209 LAB L100.2000 6.2-12.0 fl Normal MPV 11.1 Performed By: #### L100.0500 #### [facility] [place], [address] LIVER PROFILE Collected: 07/14/2017 Status: F Source: [place] 2:18 PM [facility] REPOSITORY TYPE CODE TESTS RESULT OUT OF RANGE REFERENCE UNITS LAB L501.1500 6.4-8.2 g/dL Normal T PROT 7.2 LAB L501.1800 3.2-5.0 g/dL Normal ALB 3.6 LAB L501.1950 2.2-4.2 g/dL Normal GLOB 3.6 LAB L501.4100 15-37 U/L High AST 57 LAB L501.4305 45-117 U/L Normal ALK P 49 LAB L501.4405 13-56 U/L Normal ALT 56 Result Comment: Please note revised ALT reference range effective 2017. LAB L501.4600 0.20-1.00 mg/dL Normal T BILI 0.60 LAB L501.4700 0.00-0.30 mg/dL Normal D BILI 0.13 Performed By: #### L500.3400, L501.1105 #### [facility] [address] [place], [place], [address] SERUM CREATININE AND Collected: 07/14/2017 Status: F Source: [place] GFR 2:18 PM [facility] REPOSITORY TYPE CODE TESTS RESULT OUT OF RANGE REFERENCE UNITS LAB L501.1100 0.55-1.02 mg/dL Low 0.49 CREAT,SERUM Result Comment: The validity of the calculated GFR AND GFRAA in patients over 70 years has not been determined. Clinical correlation is essential. LAB L501.1110 >60 mL/min Normal EST GFR 135 Result Comment: Non- GFR Calc LAB L501.1115 >60 mL/min Normal EST GFR - AA 164 Result Comment: GFR Calc Performed By: #### L500.3400, L501.1105 #### [facility] [address] [place], [place], [address] PROGRESS Observed: 06/18/2017 Status: COMPLETED Source: [place] 3:22 PM [facility] REPOSITORY HNO ID: [id number] Author: Robert Orr) Carlos Service: (none) Author Type: Physician Type: Progress Notes Filed: 06/18/2017 3:22 PM Note Text: Low WBC 4.1 High CK 1418 CBC-COMPLETE BLOOD CNT Collected: 06/18/2017 Status: F Source: [place] NO DIFF 9:40 AM [facility] REPOSITORY TYPE CODE TESTS RESULT OUT OF RANGE REFERENCE UNITS LAB L100.1000 4.4-11.0 K/mm3 Low WBC 4.1 LAB L100.1200 4.2-5.4 M/mm3 Low RBC 3.73 LAB L100.1300 12.0-15.0 g/dl Normal HGB 13.3 LAB L100.1400 37-47 % Normal HCT 39.9 LAB L100.1500 81-99 fL High MCV 107.0 LAB L100.1600 27.0-32.0 pg High MCH 35.7 LAB L100.1700 32-36 g/gl Normal MCHC 33.3 LAB L100.1810 11.6-14.6 % High RDW CV 15.9 LAB L100.1820 35.1-43.9 fl High RDW SD 61.8 LAB L100.1900 150-450 K/mm3 Normal PLT 209 LAB L100.2000 6.2-12.0 fl Normal MPV 11.0 Performed By: #### L100.0500 #### [facility] [address] [facility]. [place], [place], [id number] LIVER PROFILE Collected: 06/18/2017 Status: F Source: [place] 9:40 AM [facility] REPOSITORY TYPE CODE TESTS RESULT OUT OF RANGE REFERENCE UNITS LAB L501.1500 6.4-8.2 g/dL Normal T PROT 7.0 LAB L501.1800 3.2-5.0 g/dL Normal ALB 3.4 LAB L501.1950 2.2-4.2 g/dL Normal GLOB 3.6 LAB L501.4100 15-37 U/L High AST 60 LAB L501.4305 45-117 U/L Normal ALK P 48 LAB L501.4405 13-56 U/L High ALT 59 Result Comment: Please note revised ALT reference range effective 2017. LAB L501.4600 0.20-1.00 mg/dL Normal T BILI 0.60 LAB L501.4700 0.00-0.30 mg/dL Normal D BILI 0.12 Performed By: #### L500.3400, L501.1105, L501.3620 #### [facility] [address] [facility] [place], [place], [id number] SERUM CREATININE AND Collected: 06/18/2017 Status: F Source: [place] GFR 9:40 AM [facility] REPOSITORY TYPE CODE TESTS RESULT OUT OF RANGE REFERENCE UNITS LAB L501.1100 0.55-1.02 mg/dL Low 0.41 CREAT,SERUM Result Comment: The validity of the calculated GFR AND GFRAA in patients over 70 years has not been determined. Clinical correlation is essential. LAB L501.1110 >60 mL/min Normal EST GFR 166 Result Comment: Non- GFR Calc LAB L501.1115 >60 mL/min Normal EST GFR - AA 201 Result Comment: GFR Calc Performed By: #### L500.3400, L501.1105, L501.3620 #### [facility] [address] [place], [address] CPK TOTAL, CREATINE Collected: 06/18/2017 Status: F Source: [place] KINASE 9:40 AM [facility] REPOSITORY TYPE CODE TESTS RESULT OUT OF RANGE REFERENCE UNITS LAB L501.3620 26-192 U/L High CPK TOTAL 1418 Performed By: #### L500.3400, L501.1105, L501.3620 #### [facility] [address] [place], [address] PROGRESS Observed: 04/28/2017 Status: COMPLETED Source: [place] 2:29 PM [facility] [place] REPOSITORY HNO ID: [id number] Author: Robert Orr) Carlos Service: (none) Author Type: Physician Type: Progress Notes Filed: 04/28/2017 2:50 PM Note Text: On 04/28/2017, I had the pleasure of seeing Sylvia Ramirez at the [facility] for follow-up of anti-synthetase syndrome on AZA. HPI: To review, Sylvia Ramirez is a 62 year old female - In October, noted onset of wrist swelling. Found to have a +PATRICK - In Jan, seen by outside rheumatology with joint pain and finger rash. Diagnosed with inflammatory arthritis. Started on MTX but stopped by patient 2 weeks laters - In Mar, developed joint stiffness so MTX restarted - In early Apr, MTX stopped due to elevated LFTs - In late Apr, established care with Dr. Fitzpatrick in [facility] rheumatology with joint pain, myalgias, and rash. Labs with CK 1726, +PATRICK, and +Sheila-1. 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 - In May, started on MTX 20mg PO weekly - In July, symptoms and lab worsening. MTX stopped. Indeterminate TB so eventually saw ID and cleared to resume immunosuppression. - In September, started imuran - In Dec, reported improved symptoms but with some wrist pain and swelling. Dr. Fitzpatrick has been cautious with imuran dosage increases given hx of breast cancer. No medication changes made. - On May 15, 2014 found to have higher CK 1400<370. Dr. Fitzpatrick increased to imuran 200mg daily and started prednisone taper with plans to recheck labs 4 weeks later. - In late Apr, reported improved stiffness in PIPs and DIPs. With slight rash over distal fingertips. Was on prednisone 15mg daily with plans for taper by 5mg weekly. No muscle weakness. - In July, reported feeling well. Baseline aches in joints and muscles. Rash stable. Off prednisone, last dose in May. AZA 200mg/day continued - In Nov, placed on pred 10mg/day given high CK - In Mar, reported feeling well w/o any joint or muscle pain. No weakness or rash. - In early May, CK ~4000 although she felt well. Advised consideration of rituxan. She opted for prednisone 40mg with taper to 5mg/day. - June, had episode of cellulitis over L arm. Held AZA x8-9 days, restarted on 07/14/14 - In July, reported no muscle pain or weakness on pred 5mg/day x2 weeks. - In September, decreased to pred 4mg/day - In mid-Nov, alternated pred 4mg/5mg qod - In Dec, reported feeling well. - In Apr, reported feeling well on pred 5mg/day. Decreased to pred 4mg and 5mg alternating qod - In June, elevated CK to 2987 with increased weakness. Increased to prednisone 10mg/day. Adding rituxan was discussed, but deferred given subsequent improvement - In interim, started on prolia - In Nov, reported feeling well on pred 5mg/day. - In early Nov '17, increased to pred 20mg/day with taper to 5mg/day per PCP for flare involving wrist swelling. CK 900s - Today, reports feeling well. - Tylenol helps - Going [place] this winter. Niece getting Crohn's surgery at [facility] in several weeks PAST MEDICAL HISTORY Diagnosis Date - Malignant neoplasm of breast (female), unspecified site Breast cancer, left PAST SURGICAL HISTORY Procedure Laterality Date - APPENDECTOMY - BREAST BIOPSY 02/06/2015 Left breast - CARPAL TUNNEL RIGHT WRIST 05/2009 - CORRECT BUNION,SIMPLE Bunion, bilateral - HYSTERECTOMY HX 2007 laparoscopic and vaginal total hysterectomy - KNEE SCOPE,DIAGNOSTIC Arthroscopy, knee- left - MASTEC PARTIAL W AXILL NODE REMOV 07-06-06 sentinel node biopsy, left - PAST SURGICAL HISTORY OF 2006 Left lumpectomy - PAST SURGICAL HISTORY OF 02/2011 Carpal tunnel decomp left wrist - PAST SURGICAL HISTORY OF 07/2010 abdominoplasty;left breast reconstruction, right breast mastopexy - PAST SURGICAL HISTORY OF 11/2011 breast reconstruction left - PAST SURGICAL HISTORY OF 03/2015 Right foot - REMOVAL OF TONSILS,<12 Y/O Tonsillectomy - REPAIR INCISIONAL HERNIA,REDUCIBLE 1998 abdominal Review of patient's allergies indicates: No Known Allergies MEDICATIONS: Current Outpatient Prescriptions: azaTHIOprine (IMURAN) 50 mg tablet TAKE 4 TABS BY MOUTH ONCE DAILY traMADol (ULTRAM) 50 mg tablet Take 1 tablet by mouth once daily as needed. predniSONE (DELTASONE) 1 mg tablet Take 5mg/day MULTIVITAMIN,THER AND MINERALS (VITAMINS AND MINERALS ORAL) Take by mouth. PEPSIN/BETAINE HCL (PEPSIN-BETAINE ORAL) Take by mouth. IRON FUM,PS CMP/VIT C/NIACIN (INTEGRA ORAL) Take by mouth. PEC,CITRUS/INOSITOL/VIT C/SOYB (MODIFIED CITRUS PECTIN ORAL) Take by mouth. BiotaGen capsules (Klaire/Prothera) 4 capsules once daily Glutathione (SpoonRocket) 8 pumps twice daily Magnesium Citrate 150mg [address] ct[address] (Pure Encapsulations) Take 3 capsules daily at night B-Complex Plus (Pure Encapsulations) Take 1 capsule by mouth daily with food. PureGenomics Multivitamin (Pure Encapsulations) Take 1 capsule by mouth daily with food. Hepato-Thera Forte (Klaire/Prothera) Take 1 capsule by mouth daily at bedtime. CurcumaSorb (Pure Encapsulations) 2?-3 capsules daily between meals LACTOBACILLUS COMBINATION NO.8 (ADULT PROBIOTIC ORAL) Take by mouth. OTC NUTRITIONAL SUPPLEMENT once daily. Immune activator Nature's Way ACETAMINOPHEN/DIPHENHYDRAMINE (TYLENOL PM ORAL) Take 1 tablet by mouth daily at bedtime. Diclofenac Sodium (VOLTAREN) 1 % gel Apply moderate amount to painful areas on hands (2g) up to four times daily as needed. Don't exceed a total of 32g daily. turmeric root extract 500 mg cap Take by mouth once daily. Cholecalciferol, Vitamin D3, (VITAMIN D) 1,000 unit ORAL Tab Take one(1) tablet daily. omega-3 fatty acids 1,000 mg ORAL Cap Take one(1) capsule daily. No current facility-administered medications for this visit. FAMILY HISTORY Problem Relation Age of Onset - Breast Cancer Mother 67 - Breast Cancer Sister 46 - Breast Cancer Paternal Grandmother 75 - Breast Cancer Maternal Aunt 57 - Breast Cancer Maternal Aunt 55 - Colon Cancer Mother - Arthritis Father Gout - Cancer Other First cousin; lymphoma. SOCIAL HISTORY: Lives in [place]. 2 kids and 1 grandson (in [place]) who is turning 3 in June. Son is PT in [place], son-in-law who is local is mechanical manufacturing technician. from boyfriend of 14 yrs. Tobacco Use: 1 pack/day, for 10 years. Quit 08/20/1979. Types: Cigarettes Alcohol Use: Approximately 0 oz/week (About one serving per month ) REVIEW OF SYSTEMS: Reviewed 02/06 systems, as above and as below: MUSCULOSKELETAL: Joint pain, Joint swelling, Morning stiffness in joints, Back pain SKIN: Rashes, Color changes of hands or feet in the cold PHYSICAL EXAM: VITALS: Blood pressure 99/62, pulse 84, temperature 36.6 ?C (97.8 ?F), temperature source Oral, height 161.3 cm (5' 3.5), weight 65.8 kg (145 lb). CONSTITUTIONAL: Well-appearing, in NAD. SKIN: No rash. No alopecia. No sclerodactyly, calcinosis, telangiectasias, digitial ulcers, or skin thickening. EYES: No scleral icterus or conjunctivitis, PERRLA. ENT and Mouth: External ears normal. Nares normal. Mucous membranes normal. Oropharynx normal. NECK: No lymphadenopathy RESPIRATORY: Normal breath sounds, no significant crackles CARDIOVASCULAR: Regular rate and rhythm, no murmurs or rubs GASTROENTEROLOGY: Normal bowel sounds. Abdomen is soft and non-tender. EXTREMITIES/LYMPH: No edema bilaterally NEURO: Awake, alert and oriented, normal gait, strength 5/5 intact over upper and lower extremity muscles bilaterally MUSCULOSKELETAL: JOINT APPEARANCE: With Heberden's and Anam's nodes. No erythema or warmth of any upper or lower extremity joint. RANGE OF MOTION: Able to fully close fists bilaterally. SWOLLEN JOINTS/SYNOVITIS: No synovitis TENDER JOINTS: None LABORATORY: *03/23/17 high AST 49 and high ck 924 with unremarkable wbc, hgb, plt, alt, and cr *12/17/16 high CK 1800s *10/08/16 high CK 1661 with wbc 5.2, hgb 13.3, plt 210, cr 0.4, alt 54 and ast 58 (ULN 37) *08/26/16 high ESR 39 (ULN 30), high CRP 4.67 (ULN 3), and unremarkable hep a/b/c (+hep A total with neg IgM indicating immunity) *05/13/16 High CK 1840 (ULN 192) and high AST 76 (37) with unremarkable wbc, hgb, p, cr, and ALT *Mar high CK 1210 *01/22/16 TA bx negative for GCA, with mild intimal hyperplasia. Steroids getting weaned by PCP *01/10/16 outside labs: high ESR 79 and CRP 192 with unremarkable CBC Component Latest Ref Rng 06/25/2015 07/16/2015 08/09/2015 09/17/2015 10/18/2015 11/15/2015 12/10/2015 CK 30 - 220 U/L 1216 (H) 1522 (H) 2111 (H) 1787 (H) 1315 (H) 1733 (H) 1587 (H) Component Latest Ref Rng 06/12/2014 07/10/2014 08/07/2014 CK 30 - 220 U/L 1405 (H) 1124 (H) 909 (H) WSR 0 - 15 mm/hr 11 15 CRP 0.0 - 1.0 mg/dL 0.8 0.7 Sm Antibody <1.0 AI <0.2 PILE DRIVER OPERATOR BARGE MOUNTED Antibody <1.0 AI <0.2 SSA Antibody <1.0 AI <0.2 SSB Antibody <1.0 AI <0.2 Centromere Ab <1.0 AI <0.2 Scleroderma Ab, IgG <1.0 AI <0.2 Sheila 1 Antibody <1.0 AI >8.0 (H) Ribosomal PILE DRIVER OPERATOR BARGE MOUNTED <1.0 AI <0.2 Chromatin Antibody <1.0 AI <0.2 Bilirubin, Conjug 0.0 - 0.4 mg/dL 0.1 CRP 0.0 - 1.0 mg/dL 2.5 (H) WSR 0 - 15 mm/hr 20 (H) CCP Antibody, IgG <20 Units <15 PATRICK by EIA <1.5 OD Ratio 5.0 (H) Aldolase 1.5 - 8.1 U/L 40.9 (H) Myoglobin, Serum 30 - 90 ng/mL 632 (H) CK 30 - 220 U/L 1726 (H) STUDIES: *Feb PFTs- unremarkable *Jan/Feb outside DEXA- osteoporosis, L fem neck t-score -2.5 *Jan outside DEXA- reportedly with osteopenia *Jan PFTs- IMPRESSION: Small airway obstruction. Normal total lung capacity. Normal gas exchange. 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 Elevated CK but stable. Of note, with personal hx of breast cancer. - Continue imuran 200mg daily - Continue prednisone 5mg - Check labs every 2 months. Notify of results via [facility] [place]. - Continue pulmonary follow-up, to see again in Feb - Advised that if CK level significantly increases in future again, would advise treatment modification with addition of rituxan. R/B/A discussed, printed information on medication provided for review - Continue tramadol (last filled in Nov) 2. Finger pain: Likely OA - Continue voltaren gel prn - Continue tylenol prn 3. Osteopenia: Per Jan DEXA. Had not resumed boniva. - Continue prolia via another provider - Continue ca and vit D - Check DEXA in Jan 4. General health maintenance: - Advised to continue follow-up with PCP for routine health maintenance and malignancy screening Follow-up in 4 months. Patient was instructed to call if any questions or concerns. Thank you for allowing me to participate in the care of your patient. Robert Nesbitt MD CNOV Observed: 04/28/2017 Status: COMPLETED Source: [place] 2:20 PM [facility] REPOSITORY Office Visit (RHEUST) SYLVIA RAMIREZ ([id number]) 1955 F T Date Time Provider Department 04/28/17 2:20 PM ROBERT NESBITT) [place] During your visit today, we recorded the following information about you: Temperature Pulse Blood pressure Weight 97.8 degrees 84/minute 99/62 65.8 kg Height 1.613 m Robert Nesbitt MD 04/28/2017 2:50 PM Signed On 04/28/2017, I had the pleasure of seeing Sylvia Ramirez at the [facility] for follow-up of anti-synthetase syndrome on AZA. HPI: To review, Sylvia Ramirez is a 62 year old female - In October, noted onset of wrist swelling. Found to have a +PATRICK - In Jan, seen by outside rheumatology with joint pain and finger rash. Diagnosed with inflammatory arthritis. Started on MTX but stopped by patient 2 weeks laters - In Mar, developed joint stiffness so MTX restarted - In early Apr, MTX stopped due to elevated LFTs - In late Apr, established care with Dr. Fitzpatrick in [facility] rheumatology with joint pain, myalgias, and rash. Labs with CK 1726, +PATRICK, and +Sheila-1. 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 - In May, started on MTX 20mg PO weekly - In July, symptoms and lab worsening. MTX stopped. Indeterminate TB so eventually saw ID and cleared to resume immunosuppression. - In September, started imuran - In Dec, reported improved symptoms but with some wrist pain and swelling. Dr. Fitzpatrick has been cautious with imuran dosage increases given hx of breast cancer. No medication changes made. - On May 15, 2014 found to have higher CK 1400ANDlt;370. Dr. Fitzpatrick increased to imuran 200mg daily and started prednisone taper with plans to recheck labs 4 weeks later. - In late Apr, reported improved stiffness in PIPs and DIPs. With slight rash over distal fingertips. Was on prednisone 15mg daily with plans for taper by 5mg weekly. No muscle weakness. - In July, reported feeling well. Baseline aches in joints and muscles. Rash stable. Off prednisone, last dose in May. AZA 200mg/day continued - In Nov, placed on pred 10mg/day given high CK - In Mar, reported feeling well w/o any joint or muscle pain. No weakness or rash. - In early May, CK ~4000 although she felt well. Advised consideration of rituxan. She opted for prednisone 40mg with taper to 5mg/day. - June, had episode of cellulitis over L arm. Held AZA x8-9 days, restarted on 07/14/14 - In July, reported no muscle pain or weakness on pred 5mg/day x2 weeks. - In September, decreased to pred 4mg/day - In mid-Nov, alternated pred 4mg/5mg qod - In Dec, reported feeling well. - In Apr, reported feeling well on pred 5mg/day. Decreased to pred 4mg and 5mg alternating qod - In June, elevated CK to 2987 with increased weakness. Increased to prednisone 10mg/day. Adding rituxan was discussed, but deferred given subsequent improvement - In interim, started on prolia - In Nov, reported feeling well on pred 5mg/day. - In early Feb, increased to pred 20mg/day with taper to 5mg/day per PCP for flare involving wrist swelling. CK 900s - Today, reports feeling well. - Tylenol helps - Going to [place] this winter. Niece getting Crohn's surgery at [facility] in several weeks PAST MEDICAL HISTORY Diagnosis Date - Malignant neoplasm of breast (female), unspecified site Breast cancer, left PAST SURGICAL HISTORY Procedure Laterality Date - APPENDECTOMY - BREAST BIOPSY 02/06/2015 Left breast - CARPAL TUNNEL RIGHT WRIST 05/2009 - CORRECT BUNION,SIMPLE Bunion, bilateral - HYSTERECTOMY HX 2007 laparoscopic and vaginal total hysterectomy - KNEE SCOPE,DIAGNOSTIC Arthroscopy, knee- left - MASTEC PARTIAL W AXILL NODE REMOV 07-06-06 sentinel node biopsy, left - PAST SURGICAL HISTORY OF 2006 Left lumpectomy - PAST SURGICAL HISTORY OF 02/2011 Carpal tunnel decomp left wrist - PAST SURGICAL HISTORY OF 07/2010 abdominoplasty;left breast reconstruction, right breast mastopexy - PAST SURGICAL HISTORY OF 11/2011 breast reconstruction left - PAST SURGICAL HISTORY OF 03/2015 Right foot - REMOVAL OF TONSILS,ANDlt;12 Y/O Tonsillectomy - REPAIR INCISIONAL HERNIA,REDUCIBLE 1998 abdominal Review of patient's allergies indicates: No Known Allergies MEDICATIONS: Current Outpatient Prescriptions: azaTHIOprine (IMURAN) 50 mg tablet TAKE 4 TABS BY MOUTH ONCE DAILY traMADol (ULTRAM) 50 mg tablet Take 1 tablet by mouth once daily as needed. predniSONE (DELTASONE) 1 mg tablet Take 5mg/day MULTIVITAMIN,THER AND MINERALS (VITAMINS AND MINERALS ORAL) Take by mouth. PEPSIN/BETAINE HCL (PEPSIN-BETAINE ORAL) Take by mouth. IRON FUM,PS CMP/VIT C/NIACIN (INTEGRA ORAL) Take by mouth. PEC,CITRUS/INOSITOL/VIT C/SOYB (MODIFIED CITRUS PECTIN ORAL) Take by mouth. BiotaGen capsules (Klaire/Prothera) 4 capsules once daily Glutathione (SpoonRocket) 8 pumps twice daily Magnesium Citrate 150mg [address] ct[address] (Pure Encapsulations) Take 3 capsules daily at night B-Complex Plus (Pure Encapsulations) Take 1 capsule by mouth daily with food. PureGenomics Multivitamin (Pure Encapsulations) Take 1 capsule by mouth daily with food. Hepato-Thera Forte (Klaire/Prothera) Take 1 capsule by mouth daily at bedtime. CurcumaSorb (Pure Encapsulations) 2?-3 capsules daily between meals LACTOBACILLUS COMBINATION NO.8 (ADULT PROBIOTIC ORAL) Take by mouth. OTC NUTRITIONAL SUPPLEMENT once daily. Immune activator Nature's Way ACETAMINOPHEN/DIPHENHYDRAMINE (TYLENOL PM ORAL) Take 1 tablet by mouth daily at bedtime. Diclofenac Sodium (VOLTAREN) 1 % gel Apply moderate amount to painful areas on hands (2g) up to four times daily as needed. Don't exceed a total of 32g daily. turmeric root extract 500 mg cap Take by mouth once daily. Cholecalciferol, Vitamin D3, (VITAMIN D) 1,000 unit ORAL Tab Take one(1) tablet daily. omega-3 fatty acids 1,000 mg ORAL Cap Take one(1) capsule daily. No current facility-administered medications for this visit. FAMILY HISTORY Problem Relation Age of Onset - Breast Cancer Mother 67 - Breast Cancer Sister 46 - Breast Cancer Paternal Grandmother 75 - Breast Cancer Maternal Aunt 57 - Breast Cancer Maternal Aunt 55 - Colon Cancer Mother - Arthritis Father Gout - Cancer Other First cousin; lymphoma. SOCIAL HISTORY: Lives in [place]. 2 kids and 1 grandson (in [place]) who is turning 3 in June. Son is PT in [place], son-in-law who is local is mechanical manufacturing technician. from boyfriend of 14 yrs. Tobacco Use: 1 pack/day, for 10 years. Quit 08/20/1979. Types: Cigarettes Alcohol Use: Approximately 0 oz/week (About one serving per month ) REVIEW OF SYSTEMS: Reviewed 02/06 systems, as above and as below: MUSCULOSKELETAL: Joint pain, Joint swelling, Morning stiffness in joints, Back pain SKIN: Rashes, Color changes of hands or feet in the cold PHYSICAL EXAM: VITALS: Blood pressure 99/62, pulse 84, temperature 36.6 ?C (97.8 ?F), temperature source Oral, height 161.3 cm (5' 3.5ANDquot;), weight 65.8 kg (145 lb). CONSTITUTIONAL: Well-appearing, in NAD. SKIN: No rash. No alopecia. No sclerodactyly, calcinosis, telangiectasias, digitial ulcers, or skin thickening. EYES: No scleral icterus or conjunctivitis, PERRLA. ENT and Mouth: External ears normal. Nares normal. Mucous membranes normal. Oropharynx normal. NECK: No lymphadenopathy RESPIRATORY: Normal breath sounds, no significant crackles CARDIOVASCULAR: Regular rate and rhythm, no murmurs or rubs GASTROENTEROLOGY: Normal bowel sounds. Abdomen is soft and non-tender. EXTREMITIES/LYMPH: No edema bilaterally NEURO: Awake, alert and oriented, normal gait, strength 5/5 intact over upper and lower extremity muscles bilaterally MUSCULOSKELETAL: JOINT APPEARANCE: With Heberden's and Anam's nodes. No erythema or warmth of any upper or lower extremity joint. RANGE OF MOTION: Able to fully close fists bilaterally. SWOLLEN JOINTS/SYNOVITIS: No synovitis TENDER JOINTS: None LABORATORY: *03/23/17 high AST 49 and high ck 924 with unremarkable wbc, hgb, plt, alt, and cr *12/17/16 high CK 1800s *10/08/16 high CK 1661 with wbc 5.2, hgb 13.3, plt 210, cr 0.4, alt 54 and ast 58 (ULN 37) *08/26/16 high ESR 39 (ULN 30), high CRP 4.67 (ULN 3), and unremarkable hep a/b/c (+hep A total with neg IgM indicating immunity) *05/13/16 High CK 1840 (ULN 192) and high AST 76 (37) with unremarkable wbc, hgb, p, cr, and ALT *Mar high CK 1210 *01/22/16 TA bx negative for GCA, with mild intimal hyperplasia. Steroids getting weaned by PCP *01/10/16 outside labs: high ESR 79 and CRP 192 with unremarkable CBC Component Latest Ref Rng 06/25/2015 07/16/2015 08/09/2015 09/17/2015 10/18/2015 11/15/2015 12/10/2015 CK 30 - 220 U/L 1216 (H) 1522 (H) 2111 (H) 1787 (H) 1315 (H) 1733 (H) 1587 (H) Component Latest Ref Rng 06/12/2014 07/10/2014 08/07/2014 CK 30 - 220 U/L 1405 (H) 1124 (H) 909 (H) WSR 0 - 15 mm/hr 11 15 CRP 0.0 - 1.0 mg/dL 0.8 0.7 Sm Antibody ANDlt;1.0 AI ANDlt;0.2 PILE DRIVER OPERATOR BARGE MOUNTED Antibody ANDlt;1.0 AI ANDlt;0.2 SSA Antibody ANDlt;1.0 AI ANDlt;0.2 SSB Antibody ANDlt;1.0 AI ANDlt;0.2 Centromere Ab ANDlt;1.0 AI ANDlt;0.2 Scleroderma Ab, IgG ANDlt;1.0 AI ANDlt;0.2 Sheila 1 Antibody ANDlt;1.0 AI ANDgt;8.0 (H) Ribosomal PILE DRIVER OPERATOR BARGE MOUNTED ANDlt;1.0 AI ANDlt;0.2 Chromatin Antibody ANDlt;1.0 AI ANDlt;0.2 Bilirubin, Conjug 0.0 - 0.4 mg/dL 0.1 CRP 0.0 - 1.0 mg/dL 2.5 (H) WSR 0 - 15 mm/hr 20 (H) CCP Antibody, IgG ANDlt;20 Units ANDlt;15 PATRICK by EIA ANDlt;1.5 OD Ratio 5.0 (H) Aldolase 1.5 - 8.1 U/L 40.9 (H) Myoglobin, Serum 30 - 90 ng/mL 632 (H) CK 30 - 220 U/L 1726 (H) STUDIES: *Feb PFTs- unremarkable *Jan/Feb outside DEXA- osteoporosis, L fem neck t-score -2.5 *Jan outside DEXA- reportedly with osteopenia *Jan PFTs- IMPRESSION: Small airway obstruction. Normal total lung capacity. Normal gas exchange. 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 Elevated CK but stable. Of note, with personal hx of breast cancer. - Continue imuran 200mg daily - Continue prednisone 5mg - Check labs every 2 months. Notify of results via 1,2,3 [facility]. - Continue pulmonary follow-up, to see again in Feb - Advised that if CK level significantly increases in future again, would advise treatment modification with addition of rituxan. R/B/A discussed, printed information on medication provided for review - Continue tramadol (last filled in Nov) 2. Finger pain: Likely OA - Continue voltaren gel prn - Continue tylenol prn 3. Osteopenia: Per Jan DEXA. Had not resumed boniva. - Continue prolia via another provider - Continue ca and vit D - Check DEXA in Jan 4. General health maintenance: - Advised to continue follow-up with PCP for routine health maintenance and malignancy screening Follow-up in 4 months. Patient was instructed to call if any questions or concerns. Thank you for allowing me to participate in the care of your patient. Robert Nesbitt MD Referring Provider: ROBERT NESBITT) [[id number]] Allergies As of Date: 04/28/2017 (No Known Allergies) Date Reviewed: 04/28/2017 Reviewed by: Saundra Forde Ma - Fully Assessed Reason for Visit: Recheck [92] Primary Visit Diagnosis: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] Other Visit Diagnoses:Long-term use of immunosuppressant medication [Z79.899] longterm current use of systemic steroids [Z79.52] Osteopenia, unspecified location [M85.80] Order(s):azaTHIOprine (IMURAN) 50 mg tabletTAKE 4 TABS BY MOUTH ONCE DAILYDisp: 120 tabletRfl: 0 predniSONE (DELTASONE) 1 mg tabletTake 5mg/dayDisp: 150 tabletRfl: 3 HEPATIC FUNCTION PNL [SQHFP] Order #: [id number] STANDING CBC [SQCBC] Order #: [id number] STANDING CREATININE BLD [SQCRET] Order #: [id number] STANDING CK CREATINE KINASE [SQCK] Order #: [id number] STANDING Prescriptions as of 04/28/2017 Sig: AZATHIOPRINE 50 MG TABLET TAKE 4 TABS BY MOUTH ONCE RASHEED* PREDNISONE 1 MG TABLET Take 5mg/day TRAMADOL 50 MG TABLET Take 1 tablet by mouth once d* VITAMINS AND MINERALS ORAL Take by mouth. PEPSIN-BETAINE ORAL Take by mouth. INTEGRA ORAL Take by mouth. MODIFIED CITRUS PECTIN ORAL Take by mouth. OTC NUTRITIONAL SUPPLEMENT 4 capsules once daily OTC NUTRITIONAL SUPPLEMENT 8 pumps twice daily OTC NUTRITIONAL SUPPLEMENT Take 3 capsules daily at night OTC NUTRITIONAL SUPPLEMENT Take 1 capsule by mouth daily* OTC NUTRITIONAL SUPPLEMENT Take 1 capsule by mouth daily* OTC NUTRITIONAL SUPPLEMENT Take 1 capsule by mouth daily* OTC NUTRITIONAL SUPPLEMENT 2?-3 capsules daily between m* ADULT PROBIOTIC ORAL Take by mouth. OTC NUTRITIONAL SUPPLEMENT once daily. Immune activator * TYLENOL PM ORAL Take 1 tablet by mouth daily * DICLOFENAC 1 % TOPICAL GEL Apply moderate amount to pain* TURMERIC ROOT EXTRACT 500 MG * Take by mouth once daily. * CHOLECALCIFEROL (VITAMIN D3) * Take one(1) tablet daily. * OMEGA-3 FATTY ACIDS 1,000 MG * Take one(1) capsule daily. Problem List As Of Date 04/28/2017 Noted Resolved BREAST CANCER LOWER OUTER [C50.519] INVALID FOR* CERVICALGIA [M54.2] INVALID FOR* Constipation [K59.00] INVALID FOR* Localized adiposity [E65] INVALID FOR* Personal history of malignant neoplasm of breas*INVALID FOR* Antisynthetase syndrome [D89.89] INVALID FOR* ILD (interstitial lung disease) (HCC) [J84.9] INVALID FOR* High risk medication use [Z79.899] INVALID FOR* Heavy metal exposure [Z77.018] INVALID FOR* Prescriptions ordered this encounter Disp Refills Start End AZATHIOPRINE 50 MG TABLET 120 * 0 04/28/2017 Sig: TAKE 4 TABS BY MOUTH ONCE DAILY PREDNISONE 1 MG TABLET 150 * 3 04/28/2017 Sig: Take 5mg/day Medications Discontinued During This Encounter azaTHIOprine (IMURAN) 50 mg tablet 120 * 0 04/09/2017 04/28/2017 Sig: TAKE 4 TABS BY MOUTH ONCE DAILY Disc: Reason for discontinue is not on file. predniSONE (DELTASONE) 1 mg tablet 150 * 3 12/30/2016 04/28/2017 Sig: Take 5mg/day Disc: Reason for discontinue is not on file. Disposition: Return in about 4 months (around 08/26/2017). Follow-up and Disposition History Recorded Letter Text Sylvia Ramirez Robert Nesbitt M.D. Department of Rheumatic and Immunologic Disease [place] [address] Appointments: [phone] Office: [phone] Levar Eubanks MD ([facility]) [address] [place] [address] [address] [place] [address] April 28, 2017 RE: Sylvia Ramirez [id number] [address] [place] [id number] Eubanks It was a pleasure to see your patient, Ms. Ramirez in our Rheumatology department on April 28, 2017. Enclosed please find a copy of my office visit notes for your records. If you have any questions, please do not hesitate to contact my office. Sincerely yours, Robert Nesbitt MD (Electronically signed to expedite mailing) Encounter Status:Closed by ROBERT NESBITT MD on 04/28/17 PROGRESS Observed: 04/27/2017 Status: COMPLETED Source: [place] 9:41 AM [facility] REPOSITORY HNO ID: [id number] Author: Robert Orr) Carlos Service: (none) Author Type: Physician Type: Progress Notes Filed: 04/27/2017 9:41 AM Note Text: *04/22/17 high ck 924 HOSP Observed: 04/23/2017 Status: COMPLETED Source: [place] 12:00 AM [facility] REPOSITORY Abstract ([place]) SYLVIA RAMIREZ ([id number]) 1955 F T Date Time Provider Department 04/23/17 ROBERT NESBITT) [place] During your visit today, we recorded the following information about you: Nadine Brooks Ma 04/23/2017 3:32 PM Signed Labs done at [facility] on 03/23/2017 TEST RESULTS RANGE WBC 5.0 1.4-11.0 HGB 14.1 12.0-15.0 HCT 42.1 37-47 PLT 216 150-450 CRP N/A SED RATE N/A ALB 3.6 3.4-5.0 AST H49 15-37 ALT 49 12-78 CR 0.56 0.55-1.02 Robert Nesbitt MD 04/27/2017 9:41 AM Signed *04/22/17 high ck 924 Allergies As of Date: 04/23/2017 (No Known Allergies) Date Reviewed: 03/24/2017 Reviewed by: Laurie Liang - Fully Assessed Reason for Visit: Abstract [2] Prescriptions as of 04/23/2017 Sig: AZATHIOPRINE 50 MG TABLET TAKE 4 TABS BY MOUTH ONCE RASHEED* TRAMADOL 50 MG TABLET Take 1 tablet by mouth once d* PREDNISONE 1 MG TABLET Take 5mg/day VITAMINS AND MINERALS ORAL Take by mouth. PEPSIN-BETAINE ORAL Take by mouth. INTEGRA ORAL Take by mouth. MODIFIED CITRUS PECTIN ORAL Take by mouth. OTC NUTRITIONAL SUPPLEMENT 4 capsules once daily OTC NUTRITIONAL SUPPLEMENT 8 pumps twice daily OTC NUTRITIONAL SUPPLEMENT Take 3 capsules daily at night OTC NUTRITIONAL SUPPLEMENT Take 1 capsule by mouth daily* OTC NUTRITIONAL SUPPLEMENT Take 1 capsule by mouth daily* OTC NUTRITIONAL SUPPLEMENT Take 1 capsule by mouth daily* OTC NUTRITIONAL SUPPLEMENT 2?-3 capsules daily between m* ADULT PROBIOTIC ORAL Take by mouth. OTC NUTRITIONAL SUPPLEMENT once daily. Immune activator * TYLENOL PM ORAL Take 1 tablet by mouth daily * DICLOFENAC 1 % TOPICAL GEL Apply moderate amount to pain* TURMERIC ROOT EXTRACT 500 MG * Take by mouth once daily. * CHOLECALCIFEROL (VITAMIN D3) * Take one(1) tablet daily. * OMEGA-3 FATTY ACIDS 1,000 MG * Take one(1) capsule daily. Problem List As Of Date 04/23/2017 Noted Resolved BREAST CANCER LOWER OUTER [C50.519] INVALID FOR* CERVICALGIA [M54.2] INVALID FOR* Constipation [K59.00] INVALID FOR* Localized adiposity [E65] INVALID FOR* Personal history of malignant neoplasm of breas*INVALID FOR* Antisynthetase syndrome [D89.89] INVALID FOR* ILD (interstitial lung disease) (HCC) [J84.9] INVALID FOR* High risk medication use [Z79.899] INVALID FOR* Heavy metal exposure [Z77.018] INVALID FOR* Visit Notes: >> Nadine Brooks Ma WedApr 23, 2017 3:21 PM Status: Signed Labs done at [facility] on 03/23/2017 TEST RESULTS RANGE WBC 5.0 1.4-11.0 HGB 14.1 12.0-15.0 HCT 42.1 37-47 PLT 216 150-450 CRP N/A SED RATE N/A ALB 3.6 3.4-5.0 AST H49 15-37 ALT 49 12-78 CR 0.56 0.55-1.02 Encounter Status:Closed by NADINE BROOKS MA on 04/23/17 CBC-COMPLETE BLOOD CNT Collected: 04/22/2017 Status: F Source: [place] NO DIFF 12:31 PM [facility] REPOSITORY TYPE CODE TESTS RESULT OUT OF RANGE REFERENCE UNITS LAB L100.1000 4.4-11.0 K/mm3 Normal WBC 5.0 LAB L100.1200 4.2-5.4 M/mm3 Low RBC 3.96 LAB L100.1300 12.0-15.0 g/dl Normal HGB 14.1 LAB L100.1400 37-47 % Normal HCT 42.1 LAB L100.1500 81-99 fL High MCV 106.3 LAB L100.1600 27.0-32.0 pg High MCH 35.6 LAB L100.1700 32-36 g/gl Normal MCHC 33.5 LAB L100.1810 11.6-14.6 % High RDW CV 15.3 LAB L100.1820 35.1-43.9 fl High RDW SD 59.0 LAB L100.1900 150-450 K/mm3 Normal PLT 216 LAB L100.2000 6.2-12.0 fl Normal MPV 10.5 Performed By: #### L100.0500 #### [facility] [address] [place], [place], [address] LIVER PROFILE Collected: 04/22/2017 Status: F Source: [place] 12:31 PM [facility] REPOSITORY TYPE CODE TESTS RESULT OUT OF RANGE REFERENCE UNITS LAB L501.1500 6.4-8.2 g/dL Normal T PROT 7.6 LAB L501.1800 3.4-5.0 g/dL Normal ALB 3.6 Result Comment: Please note revised Albumin AND Globulin reference range effective 2017. LAB L501.1950 2.2-4.2 g/dL Normal GLOB 4.0 LAB L501.4100 15-37 U/L High AST 49 LAB L501.4305 45-117 U/L Normal ALK P 45 LAB L501.4405 12-78 U/L Normal ALT 49 LAB L501.4600 0.20-1.00 mg/dL Normal T BILI 0.70 LAB L501.4700 0.00-0.30 mg/dL Normal D BILI 0.12 Performed By: #### L500.3400, L501.1105, L501.3620 #### [facility] [address] [facility]. [place], [place], [id number] SERUM CREATININE AND Collected: 04/22/2017 Status: F Source: [place] GFR 12:31 PM [facility] REPOSITORY TYPE CODE TESTS RESULT OUT OF RANGE REFERENCE UNITS LAB L501.1100 0.55-1.02 mg/dL Normal 0.56 CREAT,SERUM Result Comment: The validity of the calculated GFR AND GFRAA in patients over 70 years has not been determined. Clinical correlation is essential. LAB L501.1110 >60 mL/min Normal EST GFR 117 Result Comment: Non- GFR Calc LAB L501.1115 >60 mL/min Normal EST GFR - AA 142 Result Comment: GFR Calc Performed By: #### L500.3400, L501.1105, L501.3620 #### [facility] [address] [place], [place], [address] CPK TOTAL, CREATINE Collected: 04/22/2017 Status: F Source: [place] KINASE 12:31 PM [facility] REPOSITORY TYPE CODE TESTS RESULT OUT OF RANGE REFERENCE UNITS LAB L501.3620 26-192 U/L High CPK TOTAL 924 Performed By: #### L500.3400, L501.1105, L501.3620 #### [facility] [address] [place], [address] ALLERGIES ALLERGIES DATE TYPE / CODE NAME / CODE REACTION SEVERITY SOURCE 11/30/2017 Drug No Known Unknown [facility] Allergy/416 Allergies/M89583 Hospital 715786(SNOM 0388(RXNORM) Repository ED CT) Drug NO KNOWN [facility] Class/48433 ALLERGIES Other [place] 1003(SNOMED Repository CT) NG/[id number] NO KNOWN [facility] 6(SNOMED ALLERGIES Health System CT) Repository ENCOUNTERS ENCOUNTERS ADMIT/DISCHARGE ACCOUNT NUMBER ADMITTING ENCOUNTER LOCATION SOURCE CLASS 03/25/2018 [id number] Ambulatory Building:[facility] [place] Practices Repository 03/24/2018 [id number] Ambulatory [facility] ding:OPBD Repository 03/14/2018 [id number] Ambulatory [facility] ding:MTLAB Repository 03/03/2018/03/03/20 [id number] Ambulatory [address] Other [place] Repository 03/03/2018/03/03/20 [id number] Ambulatory [facility] [address] MEDICAL Repository CENTERBuildi ng:AGHWW1 03/02/2018 [id number] Ambulatory [facility] MEDICAL Repository CENTERBuildi ng:AGPOB1 02/14/2018 [id number] Ambulatory [facility] ding:MASS Repository 02/03/2018/02/04/20 [id number] Ambulatory [address] Other [place] Repository 02/03/2018/02/04/20 [id number] Ambulatory [facility] [address] MEDICAL Repository CENTERBuildi ng:AGHWW1 02/02/2018 [id number] Ambulatory [facility] MEDICAL Repository CENTERBuildi ng:AGPOB1 01/27/2018 [id number] Ambulatory [facility] MEDICAL Repository CENTERBuildi ng:AGHWW1 01/26/2018/01/27/20 [id number] Ambulatory [address] Other [place] Repository 01/26/2018/01/27/20 [id number] Ambulatory [address] MEDICAL Repository CENTERBuildi ng:AGPOB1 01/17/2018/01/18/[id number] Other [place] Repository 01/17/2018/01/18/20 [id number] [place] [address] [facility] CENTERBuildi ng:ASCRoom: POOLBed: 01 01/05/2018/01/06/20 [id number] Ambulatory [address] Other [place] Repository 01/05/2018/01/06/20 [id number] Ambulatory [address] MEDICAL Repository CENTERBuildi ng:AKPASC 12/28/2017/12/30/19 [id number] Ambulatory [address] Main [place] Repository 11/30/2017/12/01/19 [id number] Emergency [address] ding:ED Repository 10/22/2017 [id number] Ambulatory [facility] ding:MTLAB Repository 09/16/2017/09/17/19 [id number] Ambulatory [address] Other [place] Repository 09/16/2017/09/17/19 [id number] Ambulatory [address] MEDICAL Repository CENTERBuildi ng:AGHWW1 09/13/2017 [id number] [facility] ding:MTLAB Repository 08/24/2017/08/26/19 [id number] Ambulatory [address] Repository 08/23/2017 [id number] [facility] ding:LAB.FUT Repository URE 07/14/2017 [id number] [facility] ding:MTLAB Repository 07/01/2017 [id number] Ambulatory [facility] MEDICAL Repository CENTERBuildi ng:AGHWW1 06/18/2017 [id number] [facility] ding:MTLAB Repository 04/28/2017/04/28/19 [id number] Ambulatory [address] Repository 04/22/2017 [id number] [facility] ding:MTLAB Repository FUNCTIONAL STATUS FUNCTIONAL STATUS No Functional Status Records FoundEQUIPMENT EQUIPMENT No Equipment Records FoundPAYERS PAYERS ENCOUNTER GUARANTOR PAYER SUBSCRIBER SOURCE 03/25/2018 SYLVIA Kelley Primary SYLVIA S OHIP Practices FEJESDOB: Insurance:[employer]Pol FEJESDOB: Repository [id number] icy Number: [id number] [address] [id number] [address] [place], [place] Date:4815-68-14[place], [place] [address]Rtd: (009) Name:[facility] [address]Yhk: [address] [place] [address] [phone] () ()Tel: [phone]: [phone] 03/25/2018 Secondary SYLVIA S OHIP Practices Insurance:[employer] FEJESDOB: Repository icy Number: [id number] [address] Date:2007[birth year]09[birth year] - [place], [place] [id number] 127[address]Vez: Name:[facility] Box ~([address] [place] [address] 30 HP) [id number]: 03/25/2018 [facility] SYLVIA [facility] Insurance:Medical FEJESDOB: Repository [facility] [id number] Number: [address] [id number] [place], [place] Date:2015-04-26 [address]Mni: [id number] ~(3 Name:[facility] [address] HP) [address], [place] [id number]: 03/24/2018 [facility] SYLVIA S [place] [id number] [facility] FEJESDOB: [facility] icy Number: [id number] [id number] Repository [address]Ozb: 330) Date:5648-03-61VF [phone] (HP) [address], [place] [address]TT: 03/24/2018 Secondary NOT GIVENUNK [place] Insurance:SELF PAY [facility] Number: Effective Repository Date:2018-02-02 03/14/2018 [facility] [place] [id number] Insurance:AULTCAREPol FejesDOB: [facility] icy Number: [id number], [place] [id number] Repository [address]Uqe: (330) Date:2226-29-00KT [phone] (HP) [address], [place] [address]NI: 03/14/2018 Secondary NOT GIVENUNK Tomasz Insurance:SELF PAY [facility] Number: Effective Repository Date:2018-03-14 03/03/2018 [facility] FEJESDOB: Insurance:AULTCARE FEJESDOB: Health System 2021-12-141646 HIXPolicy Number: [id number] Repository [address] [place] [id number] [facility] [place] Date: [address]Uub: (HP) 03/02/2018 SYLVIA S Primary SYLVIA S [facility] FEJESDOB: Insurance:AULTCARE FEJESDOB: Health System HIXPolicy Number: [id number] Repository [place] [place] [id number] [place] Date: [address]Vgl: (HP) 02/14/2018 Sylvia S [facility] [place] [id number] Insurance:SELF PAY [facility] [place] Number: Effective Repository [id number]: (330) Date:2014-12-25 [phone] (HP) 02/03/2018 SYLVIA Primary SYLVIA S [facility] FEJESDOB: Insurance:AULTCARE FEJESDOB: Health System HIXPolicy Number: [id number] Repository [address] [id number] [place], [place] Date: [address]Irk: (HP) 02/02/2018 SYLVIA S [facility] SYLVIA S [facility] FEJESDOB: Insurance:AULTCARE FEJESDOB: Health System HIXPolicy Number: [id number] Repository [place] [id number] [place] Date: [address]Jig: (HP) 01/27/2018 SYLVIA S Primary SYLVIA S [facility] FEJESDOB: Insurance:AULTCAREPol FEJESDOB: Health System icy Number: [id number] Repository [place] [id number] [place] Date: [address]Voy: (HP) 01/26/2018 SYLVIA S Primary SYLVIA S [facility] FEJESDOB: Insurance:AULTCARE FEJESDOB: Health System HIXPolicy Number: [id number] Repository [place] [id number] [place] Date: [address]Eet: (HP) 01/17/[address] [facility] FEJESDOB: Insurance:AULTCARE FEJESDOB: Health System HIXPolicy Number: [id number] Repository [place] [id number] [place] Date: [address]Awg: (HP) 01/05/[address] [facility] FEJESDOB: Insurance:AULTCAREPol FEJESDOB: Health System icy Number: [id number] Repository [place] [id number] [place] Date: [address]Swr: (HP) 11/30/2017 [facility] Tomasz [id number] Insurance:AULTCAREPol FejesDOB: Community [address] icy Number: [id number], [place] [id number] Repository [address]Ruf: (330) Date:1005-74-53ZJ [phone] (HP) [address], [place] [address]ZY: 11/30/2017 Secondary NOT GIVENUNK [place] Insurance:SELF PAY [facility] Number: Effective Repository Date:2017-11-30 10/22/2017 [facility] [place] [id number] Insurance:AULTCAREPol FejesDOB: Community [address] icy Number: [id number], [place] [id number] Repository [address]Jur: (330) Date:4074-96-45UV [phone] (HP) [address], [place] [address]KV: 10/22/2017 Secondary NOT GIVENUNK [place] Insurance:SELF PAY [facility] Number: Effective Repository Date:2017-10-22 09/16/2017 [facility] S [facility]JESD[facility]: Insurance:AULTCAREPol FEJESDOB: Health System icy Number: [id number] Repository [address] [id number] [place], [place] Date: [address]Wdd: () 09/13/2017 Sylvia S Primary Sylvia S [place] [id number] Insurance:AULTCAREPol FejesDOB: Community [address] icy Number: [id number], [place] [id number] Repository [address]Dty: Date:5374-71-85MO [phone] [place], [place] -4 () [address]ZU: 09/13/2017 Secondary NOT GIVENUNK [place] Insurance:SELF PAY [facility] Number: Effective Repository Date:2017-09-13 08/23/2017 [facility] Primary Sylvia S Tomasz [id number] Insurance:AULTCAREPol FejesDOB: Community [address] icy Number: [id number], [place] [id number] Repository [address]Dnu: Date:8199-70-86UX [phone] [facility] [place] -4 () [address]GN: 08/23/2017 Secondary NOT GIVENUNK [place] Insurance:SELF PAY [facility] Number: Effective Repository Date:2017-07-27 07/14/2017 Sylvia S Primary [facility] He[place] [id number] Insurance:AULTCAREPol FejesDOB: Community [address] icy Number: [id number], [place] [id number] Repository [address]Noz: Date:1490-39-61GS [phone] [address] -4 () [address]CV: 07/14/2017 Secondary NOT GIVENUNK Tomasz Insurance:SELF PAY [facility]: Effective Repository Date:2017-07-14 07/01/2017 SYLVIA S Primary SYLVIA S [facility] FEJESDOB: Insurance:AULTCAREPol FEJESDOB: Health System icy Number: [id number] Repository [place] [id number] [place], [place] Date: [address]Plj: () 06/18/2017 Sylvia S Primary Sylvia S [place] [id number] Insurance:AULTCAREPol FejesDOB: Community [address] icy Number: [id number] [place], [place] [id number] Repository [address]Uwr: Date:1368-22-31ST [phone] [place] [address] -4 () [address]CG: 06/18/2017 Secondary NOT GIVENUNK [place] Insurance:SELF PAY [facility] Number: Effective Repository Date:2017-06-18 04/22/2017 Sylvia S Primary Sylvia S [place] [id number] Insurance:AULTCAREPol FeyaronsDOB: [facility] [place] icy Number: [id number] [place], [place] [id number] Repository [address]Esi: Date:3634-85-74HI [phone] [place] [address] -4 () [address]AZ: 04/22/2017 Secondary NOT GIVENUNK [place] Insurance:SELF PAY [facility] Number: Effective Repository Date:2017-04-22 SOCIAL HISTORY SOCIAL HISTORY No Social History Records FoundFAMILY HISTORY FAMILY HISTORY No Family History Records FoundADVANCE DIRECTIVES ADVANCE DIRECTIVES No Advanced Directives Records FoundINFORMATION SOURCE INFORMATION SOURCE DATE CREATED AUTHOR AUTHOR'S ORGANIZATION 04/13/2018 JAMIL
== END ==
PROVIDERS: Family Provider Internal Medicine; PCP Internal Medicine; Referring Provider Internal Medicine; Visit Provider Internal Medicine
DX: Z12.31 Encounter for screening mammogram for malignant neoplasm of breast (principal); M81.0 Age-related osteoporosis without current pathological fracture
CPT/HCPCS: 77063; 77067; 77080

== ENCOUNTER → 2018-04-25 10:04 | Outpatient (CLI) | payer OTHER, SELFPAY ==
[2018-04-25 12:23] LABS: Hemoglobin 13.3 g/dl (12.0-15.0); Mean Corp Hgb Conc 34.1 g/gl (32-36); Mean Corpuscular Hgb 35.5 pg (27.0-32.0); Mean Platelet Vol. 10.3 fl (6.2-12.0); Platelet Count 221 K/mm3 (150-450); RBC Distribution Width CV 16.6 % (11.6-14.6); RBC Distribution Width SD 61.1 fl (35.1-43.9); Red Blood Count 3.75 M/mm3 (4.2-5.4); White Blood Count 4.3 K/mm3 (4.4-11.0)
[2018-04-25 12:25] LABS: Scan Indicated on CBC? Y/N NO
[2018-04-25 12:36] LABS: AST(SGOT) 38 U/L (15-37); Alanine Aminotransfer ALT/SGPT 44 U/L (13-56); Albumin, Serum 3.6 g/dL (3.2-5.0); Alkaline Phosphatase 48 U/L (45-117); Bilirubin, Direct 0.13 mg/dL (0.00-0.30); CPK Total, Creatine Kinase 812 U/L (26-192); EST Glomerular Filtration Rate 132 mL/min (>60); Est Glom Filt Rate - Afr Amer 160 mL/min (>60); Globulin 3.5 g/dL (2.2-4.2); Protein, Total 7.1 g/dL (6.4-8.2)
== END ==
PROVIDERS: Family Provider Internal Medicine; PCP Internal Medicine; Referring Provider Internal Medicine Rheumatology; Visit Provider Internal Medicine Rheumatology
DX: D89.89 Other specified disorders involving the immune mechanism, not elsewhere classified (principal); Z79.899 Other long term (current) drug therapy
CPT/HCPCS: 36415; 80076; 82550; 82565; 85027

== ENCOUNTER → 2018-07-05 09:31 | Outpatient (CLI) | payer OTHER, SELFPAY ==
[2018-07-05 12:27] LABS: Hematocrit 39.6 % (37-47); Hemoglobin 12.9 g/dl (12.0-15.0); Mean Corp Hgb Conc 32.6 g/gl (32-36); Mean Corpuscular Hgb 35.1 pg (27.0-32.0); Mean Corpuscular Volume 107.9 fL (81-99); Mean Platelet Vol. 10.2 fl (6.2-12.0); Platelet Count 201 K/mm3 (150-450); RBC Distribution Width CV 15.8 % (11.6-14.6); Red Blood Count 3.67 M/mm3 (4.2-5.4); White Blood Count 3.2 K/mm3 (4.4-11.0)
[2018-07-05 12:38] LABS: Scan Indicated on CBC? Y/N NO
[2018-07-05 12:41] LABS: AST(SGOT) 44 U/L (15-37); Alanine Aminotransfer ALT/SGPT 37 U/L (13-56); Albumin, Serum 3.5 g/dL (3.2-5.0); Alkaline Phosphatase 54 U/L (45-117); Bilirubin, Direct 0.12 mg/dL (0.00-0.30); CPK Total, Creatine Kinase 690 U/L (26-192); Creatinine, Serum 0.47 mg/dL (0.55-1.02); EST Glomerular Filtration Rate 143 mL/min (>60); Est Glom Filt Rate - Afr Amer 173 mL/min (>60); Protein, Total 7.5 g/dL (6.4-8.2)
== END ==
PROVIDERS: Family Provider Internal Medicine; PCP Internal Medicine; Referring Provider Internal Medicine Rheumatology; Visit Provider Internal Medicine Rheumatology
DX: D89.89 Other specified disorders involving the immune mechanism, not elsewhere classified (principal); Z79.899 Other long term (current) drug therapy
CPT/HCPCS: 36415; 80076; 82550; 82565; 85027

== ENCOUNTER → 2018-08-03 | Outpatient (CLI) | payer OTHER, SELFPAY ==
[2018-08-03 16:22] LABS: Absolute Lymphocyte Count 0.36 X10^3/ul (0.83-4.51); Absolute Neutrophil Count 4.6 X10^3/uL (2.0-7.7); Basophil# 0.04 X10^3/uL; Basophil% 0.8 % (0-1); Eosinophil# 0.11 X10^3/uL; Eosinophils% 2.1 % (0-5); Hematocrit 40.2 % (37-47); Hemoglobin 13.4 g/dl (12.0-15.0); Lymphocyte # 0.36 X10^3/ul (4.0); Lymphocyte % 6.8 % (19-41); Mean Corp Hgb Conc 33.3 g/gl (32-36); Mean Corpuscular Hgb 34.9 pg (27.0-32.0); Mean Corpuscular Volume 104.7 fL (81-99); Mean Platelet Vol. 10.5 fl (6.2-12.0); Monocyte# 0.18 X10^3/uL; Monocyte% 3.4 % (0-10); Neutrophil # 4.62 X10^3/uL (2.7-7.7); Neutrophil % 86.9 % (47-70); Platelet Count 227 K/mm3 (150-450); RBC Distribution Width CV 15.2 % (11.6-14.6); RBC Distribution Width SD 57.3 fl (35.1-43.9); Red Blood Count 3.84 M/mm3 (4.2-5.4); White Blood Count 5.3 K/mm3 (4.4-11.0)
[2018-08-03 16:24] LABS: Differential Indicated SCAN CRITERIA MET; POSITIVE COUNT NO; POSITIVE DIFFERENTIAL YES; POSITIVE MORPHOLOGY NO
== END | disposition home or self-care (01) ==
LOC: LAB.FUTURE 14:07
PROVIDERS: Family Provider Internal Medicine; PCP Internal Medicine; Referring Provider Internal Medicine Rheumatology; Visit Provider Internal Medicine Rheumatology
DX: D72.819 Decreased white blood cell count, unspecified (principal)
CPT/HCPCS: 36415; 85025

== ENCOUNTER 2018-10-04 10:00 | Outpatient (RCR) | payer OTHER, SELFPAY ==
--- NOTE | 2018-09-06 11:15 | HP.PTEVAL ---
Patient's Visit Information DEBBIE YIN is a 63 year old F referred to Physical Therapy by Lorena Talbot MD with a diagnosis of LBP and R hip pain. Date of Evaluation: 09/06/18 Physical Therapist: Gurdeep Carson PT, ATC - Visit Plan Frequency: 2x /Week Duration: 2-4 Weeks Plan: R hip strengthening and stretching, foam roller and stck to R glute, Core strengthening, DTR to piriformis, and HEP - Subjective Findings: Pt has had R hip pain for several months. Pt had foot surgery performed at this time and beleives she caused hip problems secondary to having an effected gait. Pt reports she saw her doctor and hip necrosis was mentioned. If PT doesnt help, she may need an MRI to rule that out. sitting and driving makes her pain worse. Pain is intermittent in nature. heating pad helps to decrease her pain. Massage also helps. Pt reports she has not had any xrays at this time. Occasional sleep difficulty secondary to pain. 4/10 at rest, 10/10 at worst. - Pain R hip Pain Intensity (Out of 10): 4 Pain Intensity Range: 10 - Objective Neuro: B LE sensation is WNL to light touch. B patellar reflex= 2/3. MMT: B LE's 5/5 throughout. L/S ROM: Ext and L SB produced mild pain in R glute region. All other ranges are WNL. Repeated movements: RFIS 10x3 NE, CEFERINO 10x3 NE. Palpation: Pt is very tender on the greater trochanter. Pt is also very tender over the piriformis muscle distribution. flexibility: Pt is moderately limited with quads, R IT band, and R piriformis muscles - Goals Goal 1:: Decrease R hip pain x 50% to aid with sleep Goal Time Frame: 2-4 Weeks Goal 2:: Increase R LE flexibility x 1 grade to aid with decreasing R glute pain Goal Time Frame: 2-4 Weeks Goal 3:: I with HEP Goal Time Frame: 2-4 Weeks - Rehabilitation Potential Physical Therapy Diagnosis: Pt has R glute pain, R LE radiculopathy, and limited tolerance for driving secondary to piriformis syndrome Rehabilitation Potential: Good - Anticipated Interventions Patient/Client Instruction: Educate patient on: Condition, Plan of Care For the Purpose of:: To improve self management Therapeutic Exercise to Include: Strength training, Endurance training, Flexibilty training, Dynamic Lumbar Stabilization For the Purpose of:: To decrease pain, To increase ROM, To improve muscle performance and motor function Thermo therapy (hot pack): Yes For the Purpose of:: To decrease pain Thank you for the opportunity to evaluate your patient. For Medicare and Medicare HMO plans, please review the plan of care and approve it. It will need to be FAXED BACK to us at [phone] for Medicare purposes. For Medicare only, by signing this I certify the plan of care. Please let me know if there are questions or concerns regarding this plan of care. Physician Signature: Date:
--- NOTE | 2018-10-04 10:42 | HP.PTDCSUM ---
HP - PT D/C Summary It has been my pleasure to treat DEBBIE YIN under orders from Lorena Talbot MD, for the diagnosis of LBP and R hip pain for a total of 7 visit(s). Discharge Date: Please see the following information for a summary of their discharge status. - Subjective Subjective: Minor pain with walking this date - Pain R hip Pain Intensity (Out of 10): 3 - Overall Improvement % Improvement: 75 - Objective Objective/Function: 0/10 pain at rest, 3/10 with walkiing. Pt is I with HEP. B LE flexibility is now WNL. Rx goals achieved - Goals Goal 1:: Decrease R hip pain x 50% to aid with sleep Goal Progress: Goal Met Goal 2:: Increase R LE flexibility x 1 grade to aid with decreasing R glute pain Goal Progress: Goal Met Goal 3:: I with HEP Goal Progress: Goal Met - Plan Plan: Discharge - D/C Information If there are questions or concerns regarding this patient's physical therapy, please feel free to call me at [phone]. Thank you for the referral of this patient. Sincerely, Gurdeep Carson, PT, ATC
== END 2018-10-04 10:50 | disposition home or self-care (01) ==
LOC: PT 10:00
PROVIDERS: Family Provider Internal Medicine; PCP Internal Medicine; Referring Provider Internal Medicine; Visit Provider Internal Medicine
DX: M54.5 Low back pain (principal); M25.551 Pain in right hip
CPT/HCPCS: 97110; 97161; 97530

== ENCOUNTER → 2019-06-26 | Outpatient (CLI) | payer OTHER, SELFPAY ==
[2018-10-26 09:51] VITALS: BMI 27.3
--- NOTE | 2019-06-26 07:58 | BI_ITS ---
MAMMOGRAPHY - BILATERAL SCREENING REASON FOR EXAM: Female, 64 years old. Routine annual screening examination. PERTINENT HISTORY: Personal history of breast cancer with prior left lumpectomy and radiation treatment. Prior bilateral breast reduction surgery. Sister with breast cancer. Mother with breast cancer. Grandmother with breast cancer. TECHNIQUE: Digital bilateral breast johann (3D mammographic acquisition) in the CC and MLO projections. 2-D mediolateral oblique (MLO) and craniocaudad (CC) views of both breasts were obtained. CAD: Full Field Digital Mammography with Computer Added Detection was performed. COMPARISON: Comparison is made with prior study dated March 24, 2018 and March 22, 2017. FINDINGS: Breast Composition: The breasts are heterogeneously dense, which may obscure small masses. There are no dominant masses or suspicious calcifications. Once again, the patient is status post right excisional breast biopsy with resultant architectural distortion lung the inferior midportion of the left breast. Stable calcification is seen at the operative site in keeping with the postoperative changes. Surgical clips are seen in the left axillary region. A tissue clip marker is once again seen in the deep slightly lateral portion of the left breast. No other significant abnormalities are identified. There has been no significant change since the prior study. BI/SCREEN MAMM (CAD) W/JOHANN BILAT IMPRESSION: Stable bilateral screening mammogram. Yearly follow-up mammogram recommended. (A) ASSESSMENT CATEGORY: BIRADS Category 2: Benign. A letter regarding these results will be sent to the patient by the facility within 30 days. Approximately 10% of breast cancers are not detected by mammography. A normal mammogram should not delay biopsy of a clinically suspicious abnormality. [id number] Electronically Signed: Tobin Salcido, at 9:34 EST , Service support ,
== END | disposition home or self-care (01) ==
LOC: OPBI 07:54
PROVIDERS: Family Provider Internal Medicine; PCP Internal Medicine; Referring Provider Internal Medicine; Visit Provider Internal Medicine
DX: Z12.31 Encounter for screening mammogram for malignant neoplasm of breast (principal)
CPT/HCPCS: 77063; 77067

== ENCOUNTER → 2019-09-19 17:22 | Outpatient (CLI) | payer OTHER, SELFPAY ==
[2018-10-26 09:51] VITALS: BMI 27.3
== END ==
PROVIDERS: PCP Internal Medicine; Referring Provider Internal Medicine; Visit Provider Internal Medicine
DX: R10.84 Generalized abdominal pain (principal)
CPT/HCPCS: 87086

== ENCOUNTER → 2019-10-23 | Outpatient (CLI) | payer OTHER, SELFPAY ==
[2018-10-26 09:51] VITALS: BMI 27.3
--- NOTE | 2019-10-23 10:53 | VDUE_ITS ---
Reason For Study: Swelling Left Proximal Left jugular vein is spontaneous, widely patent, phasic, with no intraluminal echogenicity noted. Left subclavian vein is spontaneous, widely patent, phasic, with no intraluminal echogenicity noted. Left Arm Left axillary vein is spontaneous, patent, phasic, competent, compressible and demonstrates augmentation. Left brachial vein is compressible. Left cephalic vein is compressible. Left basilic vein is compressible. Left Lower Arm Left radial vein is compressible. Left ulnar vein is compressible. Patient Safety Prelim to [place]. Interpretation Summary Deep veins of the left upper extremity are patent and compressible segmentally. There is no evidence of deep vein thrombosis. The superficial veins of the left upper extremity, the basilic and cephalic veins, are patent and compressible. There is no evidence of left upper extremity superficial thrombophlebitis involving the veins imaged. Ordering Physician: Lorena Talbot Referring Physician: Lorena Talbot Performed By: Breanne Hassan RVT ?
== END | disposition home or self-care (01) ==
LOC: CVS 10:51
PROVIDERS: PCP Internal Medicine; Referring Provider Internal Medicine; Visit Provider Internal Medicine
DX: M79.89 Other specified soft tissue disorders (principal)
CPT/HCPCS: 93971

== ENCOUNTER → 2019-11-17 | Outpatient (CLI) | payer OTHER, SELFPAY ==
[2018-10-26 09:51] VITALS: BMI 27.3
== END | disposition home or self-care (01) ==
LOC: LABSPEC 17:44
PROVIDERS: PCP Internal Medicine; Referring Provider Internal Medicine; Visit Provider Internal Medicine
DX: R50.9 Fever, unspecified (principal); R52 Pain, unspecified; R19.7 Diarrhea, unspecified
CPT/HCPCS: 87635; 87804; 87807; 94799; U0003

== ENCOUNTER → 2019-12-20 12:04 | Outpatient (CLI) | payer OTHER, SELFPAY ==
[2018-10-26 09:51] VITALS: BMI 27.3
--- NOTE | 2019-12-20 12:08 | RAD_ITS ---
STUDY: X-RAY - PELVIS AND RIGHT HIP REASON FOR EXAM: Female, 64 years old. RIGHT HIP PAIN X 6 MONTHS TECHNIQUE: 3 views of the pelvis and hip. COMPARISON: None. FINDINGS: There is a non-specific bowel gas pattern. Normal visualized soft tissue structures. There is diffuse demineralization of the osseous structures. There is narrowing with cortical sclerosis and osteophyte formation of the sacroiliac joint consistent with degenerative osteoarthritic changes. Normal bilateral superior and inferior pubic rami. There is narrowing with sclerosis of the pubic symphysis. Normal bilateral ischial tuberosities. Normal visualized femoral head. Normal acetabulum. There is mild articular joint space narrowing of the hip. RAD/HIP, UNI W/ Pelvis 2-3 Views IMPRESSION: Degenerative changes, no acute findings Electronically Signed: Thanh Carrera MD at 17:27 EDT , Service support ,
== END ==
PROVIDERS: PCP Internal Medicine; Referring Provider Internal Medicine; Visit Provider Internal Medicine
DX: M25.551 Pain in right hip (principal)
CPT/HCPCS: 73502

== ENCOUNTER → 2020-01-05 | Outpatient (CLI) | payer OTHER, SELFPAY ==
[2018-10-26 09:51] VITALS: BMI 27.3
--- NOTE | 2020-01-05 16:13 | MRI_ITS ---
STUDY: MRI RIGHT HIP REASON FOR EXAM: Female, 64 years old. RIGHT hip pain, concern for osteomyelitis, immunocompromised TECHNIQUE: Standardized fat and water weighted pulse sequences were obtained in all 3 orthogonal planes. COMPARISON: X-ray 12/20/2019. FINDINGS: Marrow signal is normal. There is no fracture, bone contusion or osteonecrosis. No marrow edema to indicate osteomyelitis. No hip dislocation or joint effusion. There is a full-thickness tear of the anterior fibers of the gluteus medius tendon. Fluid signal is noted around the posterior fibers of the gluteus medius tendon consistent with low-grade strain. Gluteus minimus and cherise are intact. Visualized iliopsoas muscle and tendon are unremarkable. Visualized pelvic structures are unremarkable. No free fluid or bowel obstruction. No soft tissue mass or collection. There is a 1.4 x 1 x 1.3 cm cystic lesion lateral to the acetabulum, most consistent with a small ganglion cyst. MRI/Lower Ext Joint Only W/WO Cont IMPRESSION: 1. Gluteus medius tendon tear. 2. No evidence of osteomyelitis. 3. Cystic lesion lateral to the acetabulum, probable ganglion. Electronically Signed: Aria Jensen MD at 23:42 EDT Tel , Service support ,
[2020-01-05 16:31] LABS: CREATININE FINGERSTICK < 0.6 mg/dL (0.55-1.02); EGFR FINGERSTICK > 60.0000 mL/min (>60)
== END | disposition home or self-care (01) ==
LOC: MRI 16:04
PROVIDERS: PCP Internal Medicine; Referring Provider Internal Medicine; Visit Provider Internal Medicine
DX: M25.551 Pain in right hip (principal)
CPT/HCPCS: 73723; A9575

== ENCOUNTER 2020-02-23 09:00 | Outpatient (RCR) | payer OTHER, SELFPAY ==
[2018-10-26 09:51] VITALS: BMI 27.3
--- NOTE | 2020-01-26 09:19 | HP.PTEVAL_ITS ---
Patient's Visit Information DEBBIE YIN is a 64 year old F referred to Physical Therapy by Dr. Krishna Elizabeth MD with a diagnosis of R hip strain. Date of Evaluation: 01/26/20 Physical Therapist: Eliezer Torres, DPT, OCS, CSCS - Visit Plan Frequency: 3x /Week Duration: 4-6 Weeks Plan: 3x/week for 2-4 weeks for. 1. ROM and stretch R hip gluts to tolerance. 2. gradual progression of painfree R glut med adn hip strength to HEP. 3. rollout and stretch glut med R. 4. TENS with if needed. 5. Gait training and progression with activity modification - Subjective Problems with R hip on and off. Left country earlier in year and much trouble on steps. Had some good days and bad days. Got cortisone injection in October and felt great for 4 weeks. Came back like [facility] and got x ray and MRI. Xray was good and MRI with contrast showed torn glut muscle, sent to ortho. Therapy or surgery are options. Pain is daily with 10/10 on steps but can stay on first level at home, a couple to get in, Lifting leg to get in car hurts. Can walk on level ground without pain, slight discomfort. Feels 5/10 after walking. Most pain is laterally or anteriorly and sometimes posteriorly. Sleep on it can hurt so she tries not to. Moslty comfortable at rest except a few jabs. Retired. Son is PT and tried some things. She knows she needs stretched. Activities include walking, [employer] girls [employer], [employer], and 6 yo grandson. Basic ADLs are getting done. - Pain R hip Pain Intensity (Out of 10): 1 Pain Intensity Range: 1, 10 - Objective Walks with R trendelenberg and slight pain each step. steps hurt 8/10 ascending with R adn poor R stance support. Better coming down. Transfers are I. AROM B hips WNl except IR and abduction painful on R especially against gravity. Strength ankles 4+/5, knees 4/5, hip IR 3R adn 4 L, ext 4- R and 4 L, ext rotation 4- R and 4 L, abduction 3 and painful R and 4 L, flexion 4 B no pain. Tightness in B quads mod and ITB R>L minimally. Tender to touch R glut med muscle belly and greater trochanter. - Goals Goal 1:: climb into car without noticing R hip Goal Time Frame: 2-4 Weeks Goal 2:: Ascend steps withotu pain Goal Time Frame: 2-4 Weeks Goal 3:: Gait without R trendelnberg Goal Time Frame: 4-6 Weeks Goal 4:: Pt feel hip pain 75% better adn 2/10 at worst Goal Time Frame: 2-4 Weeks Goal 5:: LEFS score 60/80 Goal Time Frame: 4-6 Weeks - Rehabilitation Potential Physical Therapy Diagnosis: R glut med strain. Rehabilitation Potential: Fair - Anticipated Interventions Patient/Client Instruction: Educate patient on: Condition, Plan of Care For the Purpose of:: To decrease pain, To increase ROM, To improve muscle performance and motor function, To increase tolerance to act ivity/condition/position Therapeutic Exercise to Include: Strength training, Flexibilty training, Gait and locomotor training, Passive ROM, Active ROM For the Purpose of:: To decrease pain, To increase ROM, To improve muscle performance and motor function, To increase tolerance to activity/condition/position, To improve ability of physical actions for home/community/work/leisure, To improve gait and locomotor functions Manual Therapy Techniques to Include: Soft tissue mobilization For the Purpose of:: To decrease pain, To increase ROM, To improve nutrient delivery to tissue TENS: Yes Cryotherapy (ice pack, ice massage): Yes For the Purpose of:: To decrease pain Thank you for the opportunity to evaluate your patient. For Medicare and Medicare HMO plans, please review the plan of care and approve it. It will need to be FAXED BACK to us at [phone] for Medicare purposes. For Medicare only, by signing this I certify the plan of care. Please let me know if there are questions or concerns regarding this plan of care. Physician Signature: Date:
--- NOTE | 2020-02-12 11:19 | HP.PTREVAL_ITS ---
Dr. Krishna Elizabeth MD, It has been my pleasure to treat DEBBIE YIN over the last 7 visits for R hip strain. Please see the progress note below for an update on the physical therapy plan of care! Subjective: Pt reports that she has good days and bad days. The pain tends to move around. She felt that the manual stuff last time helped some for a day or so. She did her exercises and she used the hot corn bag on it. She feels that the exercises and manual therapy are helpful. Pt would like to try at least one more week and see what happens. 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 Pt walks with decreased stance time on the R LE. Plan Plan: Pt wants to try at least one additional week of PT. She wants to talk to someone that had the Labral repair surgery (Brain C???). to continue manual as needed adn progress strength of hip to tolerance. Goals Goal 1:: climb into car without noticing R hip Goal Time Frame: 2-4 Weeks Goal Progress: Progressing Goal 2:: Ascend steps withotu pain Goal Time Frame: 2-4 Weeks Goal Progress: Progressing Goal 3:: Gait without R trendelnberg Goal Time Frame: 4-6 Weeks Goal Progress: Progressing Goal 4:: Pt feel hip pain 75% better adn 2/10 at worst Goal Time Frame: 2-4 Weeks Goal Progress: Progressing Goal 5:: LEFS score 60/80 Goal Time Frame: 4-6 Weeks Anticipated Interventions Patient/Client Instruction: Educate patient on: Condition, Plan of Care For the Purpose of:: To decrease pain, To increase ROM, To improve muscle performance and motor function, To increase tolerance to activity/condition/position Therapeutic Exercise to Include: Strength training, Flexibilty training, Gait and locomotor training, Passive ROM, Active ROM For the Purpose of:: To decrease pain, To increase ROM, To improve muscle performance and motor function, To increase tolerance to activity/condition/position, To improve ability of physical actions for home/community/work/leisure, To improve gait and locomotor functions Manual Therapy Techniques to Include: Soft tissue mobilization For the Purpose of:: To decrease pain, To increase ROM, To improve nutrient delivery to tissue TENS: Yes Cryotherapy (ice pack, ice massage): Yes For the Purpose of:: To decrease pain Please do not hesitate to contact me at [phone] by phone or if you have questions or concerns regarding this new plan of care! Sincerely, Carmen Fleming, MPT
--- NOTE | 2020-02-23 09:22 | HP.PTDCSUM ---
It has been my pleasure to treat DEBBIE YIN referred by Dr. Krishna Elizabeth MD, with the diagnosis of R hip strain for a total of 10 visit(s). Discharge Date: 02/23/20 Please see the following information for a summary of their discharge status. Subjective: To doctor in two weeks. Less pain intensity and severity adn duration. Doing HEP and machines. Sleep is fine. Activities are normal. Walking for fitness. R hip Pain Intensity (Out of 10): 3 % Improvement: 85 Objective/Function: Walks well with improving R trendelnberg but still present, not antalgic. steps reciprocal without rail, slight weak R vs L. AROM and PROM R hip symmetrical with L. Overall much improved Goal 1:: climb into car without noticing R hip Goal Progress: MUCH BETTER. Goal 2:: Ascend steps withotu pain Goal Progress: Goal Met Goal 3:: Gait without R trendelnberg Goal Progress: Progressing Goal 4:: Pt feel hip pain 75% better adn 2/10 at worst Goal Progress: Goal Met Goal 5:: LEFS score 60/80 Goal Progress: Goal Met Plan: d/c to HEP, gym ex,a dn stretching. Discharge Comments: To doctor in 2 weeks If there are questions or concerns regarding this patient's physical therapy, please feel free to call me at [phone]. Thank you for the referral of this patient. Sincerely, Eliezer Torres, DPT, OCS, CSCS
== END 2020-02-23 19:00 | disposition home or self-care (01) ==
LOC: PT 09:00
PROVIDERS: PCP Internal Medicine; Referring Provider Orthopaedic Surgery Sports Medicine; Visit Provider Orthopaedic Surgery Sports Medicine
DX: S76.011D Strain of muscle, fascia and tendon of right hip, subsequent encounter (principal)
CPT/HCPCS: 97014; 97110; 97140; 97161; 97164; 97530; G0283

== ENCOUNTER → 2020-05-03 09:13 | Outpatient (CLI) | payer MEDICARE, OTHER, SELFPAY ==
[2018-10-26 09:51] VITALS: BMI 27.3
--- NOTE | 2020-05-03 09:17 | US_ITS ---
STUDY: ULTRASOUND BREAST - LEFT REASON FOR EXAM: Female, 65 years old. One-week history of left lateral breast pain. Status post left lumpectomy. TECHNIQUE: Axial and longitudinal images of the LEFT breast were performed with a high resolution ultrasound transducer. # OF IMAGES: [id number] COMPARISON: Comparison is made with prior mammogram done earlier today as well as prior sonogram of the left breast dated 01/15/2015. FINDINGS: LEFT Breast: There is evidence of postoperative changes at the lumpectomy site. No definite mass lesion is seen. US/Breast Limited Unilateral IMPRESSION: Postoperative changes at the lumpectomy site. ASSESSMENT CATEGORY: BIRADS Category 2: Benign. A letter regarding these results will be sent to the patient by the facility within 30 days. Electronically Signed: Tobin Salcido, at 12:15 EST , Service support ,
--- NOTE | 2020-05-03 09:17 | BI_ITS ---
MAMMOGRAPHY - BILATERAL DIAGNOSTIC REASON FOR EXAM: Female, 65 years old. One week history of left lateral breast pain. PERTINENT HISTORY: Personal history of breast cancer. Prior left lumpectomy with radiation treatment. Prior bilateral breast reduction surgery. TECHNIQUE: Digital bilateral breast shanice (3D mammographic acquisition) in the CC and MLO projections. 2-D mediolateral oblique (MLO) and craniocaudad (CC) views of both breasts were obtained. CAD: Full Field Digital Mammography with Computer Added Detection was performed. COMPARISON: Comparison is made with prior study of 06/26/2019 and 03/24/2018. FINDINGS: Breast Composition: The breasts are heterogeneously dense, which may obscure small masses. The patient is status post lumpectomy in the deep slightly upper lateral portion of the left breast. Postoperative scarring and calcification is seen at the operative site. There is deformity of the left breast with the skin thickening. Surgical clips are seen in the left axillary region as well. There has been no change. A tissue clip marker is also seen in the deep slightly lateral portion of the left breast from prior biopsy. No other significant abnormalities are identified. There has been no significant change since the prior study. BI/DIAG MAMM W/CAD, BILAT IMPRESSION: Stable bilateral diagnostic mammogram. With the patient''s history of left breast pain, correlation with ultrasound is recommended. ASSESSMENT CATEGORY: BIRADS Category 0: Incomplete. Need additional imaging evaluation. A letter regarding these results will be sent to the patient by the facility within 30 days. Approximately 10% of breast cancers are not detected by mammography. A normal mammogram should not delay biopsy of a clinically suspicious abnormality. Electronically Signed: Tobin Salcido, at 11:19 EST , Service support ,
== END ==
PROVIDERS: PCP Internal Medicine; Referring Provider Internal Medicine; Visit Provider Internal Medicine
DX: N64.4 Mastodynia (principal)
CPT/HCPCS: 76642; 77062; 77066; G0279

== ENCOUNTER → 2020-06-03 13:08 | Outpatient (CLI) | payer MEDICARE, OTHER, SELFPAY ==
[2018-10-26 09:51] VITALS: BMI 27.3
--- NOTE | 2020-06-03 13:18 | MRI_ITS ---
STUDY: BILATERAL BREAST MR WITHOUT AND WITH CONTRAST REASON FOR EXAM: Female, 65 years old. left breast pain -- hx breast cancer 14 years ago , 2 prev surgeries left breast 2006,2011 TECHNIQUE: Multi-sequence multi-echo imaging of both breasts was performed with a dedicated breast coil. T1-weighted and T2-weighted images were performed before the administration of contrast. T1-weighted images were also performed after the administration of dotarem 13ml iv without complications. COMPARISON: Breast ultrasound dated 05/03/2020 and mammogram dated 05/03/2020, 06/26/2019 and 03/24/2018 FINDINGS: RIGHT BREAST: The breast tissue is heterogeneously dense with no background enhancement. There are no abnormal enhancing masses or areas of non-mass enhancement in the right breast. LEFT BREAST: The breast tissue is heterogeneously dense with no background enhancement. There are no abnormal enhancing masses or areas of non-mass enhancement in the left breast. Architectural distortion and scar tissue is seen in the lateral, far posterior aspect of the left breast at the post lumpectomy site. There are no enlarged or abnormal lymph nodes. There is no abnormality in the visualized regions of the chest or liver. MRI/Breast Bilateral W/O and W IMPRESSION: Unremarkable breast MR examination with contrast. CATEGORY: BIRADS Category 2: Benign. A letter regarding these results will be sent to the patient by the facility within 30 days. Electronically Signed: Lina Gonzalez DO at 14:04 EST Tel , Service support ,
[2020-06-03 14:06] LABS: CREATININE FINGERSTICK 0.8 mg/dL (0.55-1.02)
== END ==
PROVIDERS: PCP Internal Medicine; Referring Provider Internal Medicine; Visit Provider Internal Medicine
DX: N64.4 Mastodynia (principal)
CPT/HCPCS: 77049; A9575; A4216; C8908

== ENCOUNTER → 2021-04-08 13:47 | Outpatient (CLI) | payer MEDICARE, OTHER, SELFPAY ==
--- NOTE | 2021-04-08 13:54 | BD_ITS ---
STUDY: DUAL ENERGY X-RAY ABSORPTIOMETRY / DXA REASON FOR EXAM: Female, 66 years old. OSTEO TECHNIQUE: Bone Mineral Density (BMD) measurements of lumbar spine and bilateral hips were obtained. COMPARISON: Comparison is made with prior study dated 03/24/2018. FINDINGS: Lumbar Spine (L1-L4): g/cm2 (1.077) / T-score (0.6) / Z-score (2.4) Findings are suggestive of normal bone density with a low fracture risk. Left Femur Total: g/cm2 (0.759) / T-score (-1.5) / Z-score (-0.2) Left Femoral Neck: g/cm2 (0.567) / T-score (-2.5) / Z-score (-1.0) Right Femur Total: g/cm2 (0.761) / T-score (-1.5) / Z-score (-0.2) Right Femoral Neck: g/cm2 (0.655) / T-score (-1.7) / Z-score (-0.2) The T-Scores on the most recent prior examination were: Lumbar Spine (L1-L4): There has been improvement of bone density since the previous examination. Left Femur Total: which represents an improvement of 4.1%. Right Femur Total: which represents an improvement of 4%. BD/Dexa Bone Density Study IMPRESSION: The patient is considered osteopenic as outlined below according to World [place] Organization (WHO) criteria with a high fracture risk. There has been improvement of bone density since the previous examination. Reference Information: The T-score is the number of standard deviations above or below the standard which is normal for young adults at their peak bone mineral density. The World Health Organization (WHO) interprets the T-scores as follows: Above -1 Normal bone density Between -1 and -2.5 Osteopenia Equal to / or below -2.5 Osteoporosis As a practical clinical guideline, osteopenia may be graded as follows: Mild -1 through -1.5 Moderate -1.6 through -2.0 Severe -2.1 through -2.4 The Z-score is the number of standard deviations above or below age-matched controls. A Z-score of less than -1.5 would be considered abnormal. References: 1. NIH Osteoporosis and Related Bone Diseases www osteo.org 2. International Society for Clinical Densitometry www iscd.org 3. National Osteoporosis Foundation www nof.org Electronically Signed: Tobin Salcido MD at 15:34 EST , Service support ,
== END ==
PROVIDERS: PCP Internal Medicine; Visit Provider Internal Medicine
DX: M81.0 Age-related osteoporosis without current pathological fracture (principal)
CPT/HCPCS: 77080

== ENCOUNTER → 2021-09-03 | Outpatient (CLI) | payer MEDICARE, OTHER, SELFPAY ==
--- NOTE | 2021-09-03 10:10 | BI_ITS ---
MAMMOGRAPHY - BILATERAL SCREENING REASON FOR EXAM: Female, 66 years old. Routine annual screening examination. PERTINENT HISTORY: Personal history of breast cancer. Prior left lumpectomy and radiation therapy. Prior bilateral breast reduction surgery. Sister with breast cancer. Mother with breast cancer. Grandmother with breast cancer. TECHNIQUE: Digital bilateral breast johann (3D mammographic acquisition) in the CC and MLO projections. 2-D mediolateral oblique (MLO) and craniocaudad (CC) views of both breasts were obtained. CAD: Full Field Digital Mammography with Computer Added Detection was performed. COMPARISON: Comparison is made with prior study dated 06/26/2019 and 05/03/2020. FINDINGS: Breast Composition: The breasts are heterogeneously dense, which may obscure small masses. There are no dominant masses or suspicious calcifications. Once again, the patient is status post lumpectomy in the mid deep slightly lateral aspect of the left breast with resultant postoperative scarring and macrocalcifications. There has been no change. Stable deformity and skin thickening of the left breast. Surgical clips are also seen in the left axilla. A tissue clip marker is seen in the deep slightly lateral portion of the left breast. No other significant abnormalities are identified. There has been no significant change since the prior study. BI/SCRN MAMM (CAD)W/JOHANN BILAT IMPRESSION: Stable bilateral screening mammogram. Yearly follow-up mammogram recommended. (A) ASSESSMENT CATEGORY: BIRADS Category 2: Benign. A letter regarding these results will be sent to the patient by the facility within 30 days. Approximately 10% of breast cancers are not detected by mammography. A normal mammogram should not delay biopsy of a clinically suspicious abnormality. [id number] Electronically Signed: Tobin Salcido MD at 12:12 EDT ,
--- NOTE | 2021-09-03 10:50 | CT_ITS ---
STUDY: CT CHEST WITHOUT CONTRAST REASON FOR EXAM: Female, 66 years old. HYPERLIPIDEMIA. Cardiac over read examination. RADIATION DOSAGE (If Supplied By Facility): CTDIvol = ( 12.19 ) mGy, DLP = ( 219.42 ) mGycm TECHNIQUE: Transaxial imaging was performed without the administration of intravenous contrast material. Individualized dose optimization techniques were used for this CT. COMPARISON: No relevant priors. FINDINGS: CHEST Diffuse increased interstitial markings more prominent in the lower SUGGESTIVE of a interstitial scarring. There is no demonstrated pleural abnormality. Calcific plaque at the origin of the right coronary artery. There are multiple small lymph nodes within the mediastinum, which are normal in size and morphology most compatible with reactive lymph hyperplasia. Normal hilar regions. Normal unenhanced pulmonary arteries. There is atherosclerotic calcification of the aortic arch. Normal osseous structures. Small hiatal hernia. CT/Limited Chest CT w/CCTA IMPRESSION: Calcific plaque at the origin of the right coronary artery. Findings in comparison with the chronic interstitial scarring at the lung bases. Electronically Signed: Tobin Salcido MD at 13:23 EDT ,
[2021-09-03 10:54] VITALS: BP 114/57; PULSE 64; RESP 16; TEMP 36.7; O2SAT 100; BMI 25.1
--- NOTE | 2021-09-03 16:29 | CA.SCORE ---
Calcium Scoring Date of Study:: 09/03/21 Coronary Calcium Scoring: High-resolution Computed Tomographic imaging of the chest was performed on 09/03/2021 with particular attention paid to the coronary arteries. Images from the examination were analyzed for the presence and extent of coronary artery calcification , using coronary calcium quantification software. The patient tolerated the procedure well and there were no complications. The results of the coronary calcification analysis are provided below. Findings Coronary Artery Left Main (LM): 0 Left Anterior Descending (LAD): 0 Left Circumflex (LCX): 0 Right Coronary Artery (RCA): 16.7 Total Agatston Score: 16.7 Percentile Ranking: According to prepublished reference tables approximately 25% to 50% of patients of the same gender and/or similar age had the same and/or lower scores. Calcium Scoring Interpretation: 0 No identifiable atherosclerotic plaque. Very low cardiovascular disease risk. <5% chance of presence coronary artery disease A Negative Examination 1-10 Minimal Plaque burden. Significant coronary artery disease very unlikely. 11-100 Mild plaque burden. Likely mild or minimal coronary atherosclerosis. 101-400 Moderate plaque burden Moderate non-obstructive coronary artery disease highly likely. Over 400 Extensive plaque burden. High likelihood of at least one significant coronary stenosis (>50% diameter) Calcium Score: 11 - 100 Likely mild or minimal coronary stenosis Conclusion: Continue cardiovascular risk factor evaluation and care as deemed appropriate. This note was generated using a voice recognition system and there may be incorrect words, spelling or punctuation that were not noted when reviewing the office note prior to saving.
== END | disposition home or self-care (01) ==
PROVIDERS: PCP Internal Medicine; Referring Provider Internal Medicine; Visit Provider Internal Medicine
DX: Z12.31 Encounter for screening mammogram for malignant neoplasm of breast (principal); Z85.3 Personal history of malignant neoplasm of breast; E78.5 Hyperlipidemia, unspecified
CPT/HCPCS: 75571; 76380; 77063; 77067

== ENCOUNTER → 2022-04-30 | Outpatient (CLI) | payer MEDICARE, SELFPAY ==
[2022-04-30 12:21] LABS: Absolute Lymphocyte Count 0.29 X10^3/uL (0.83-4.51); Absolute Neutrophil Count 3.2 X10^3/uL (2.0-7.7); Basophil# 0.04 X10^3/uL; Eosinophil# 0.13 X10^3/uL; Eosinophils% 3.3 % (0-5); Hematocrit 40.6 % (37-47); Hemoglobin 13.6 g/dL (12.0-15.0); Lymphocyte # 0.29 X10^3/ul (0.83-4.51); Lymphocyte % 7.4 % (19-41); Mean Corp Hgb Conc 33.5 g/dL (32-36); Mean Corpuscular Hgb 34.3 pg (27.0-32.0); Mean Corpuscular Volume 102.5 fL (81-99); Mean Platelet Vol. 11.2 fl (6.2-12.0); Monocyte# 0.25 X10^3/uL; Monocyte% 6.4 % (0-10); NRBC Flagged by Analyzer 0.5 % (0-5); Neutrophil # 3.19 X10^3/uL (2.7-7.7); Neutrophil % 81.6 % (47-70); POSITIVE DIFFERENTIAL YES; Platelet Count 219 K/mm3 (150-450); RBC Distribution Width CV 14.6 % (11.6-14.6); RBC Distribution Width SD 55.3 fl (35.1-43.9); Red Blood Count 3.96 M/mm3 (4.2-5.4); White Blood Count 3.9 K/mm3 (4.4-11.0)
[2022-04-30 12:32] LABS: Differential Indicated SCAN CRITERIA MET
[2022-04-30 12:49] LABS: Vitamin B12 610 pg/mL (211-911); Vitamin D,25 Hydroxy 63.4 ng/mL
[2022-04-30 13:12] LABS: Progesterone Level < 0.21 ng/mL (See Comment)
[2022-04-30 13:32] LABS: ALB/GLOB Ratio 1.1 RATIO (0.9-2.4); AST(SGOT) 18 U/L (15-37); Alanine Aminotransfer ALT/SGPT 22 U/L (13-56); Albumin, Serum 3.7 g/dL (3.2-5.0); Alkaline Phosphatase 58 U/L (45-117); Anion Gap 9 (5-15); BUN 12 mg/dL (7-18); Calcium,Total 9.5 mg/dL (8.5-10.1); Chloride 105 mmol/L (98-107); Cholesterol 235 mg/dL (200); Creatinine, Serum 0.57 mg/dL (0.55-1.02); EST Glomerular Filtration Rate 112 mL/min (>60); Est Glom Filt Rate - Afr Amer 136 mL/min (>60); Estradiol < 11.0 pg/mL; Free T3 2.8 pg/mL (2.18-3.98); Globulin 3.4 g/dL (2.2-4.2); Glucose 97 mg/dL (74-106); High Density Lipoprotein 82 mg/dL; Potassium 3.8 mmol/L (3.5-5.1); Protein, Total 7.1 g/dL (6.4-8.2); Sodium Level 140 mmol/L (136-145); T4 Free Direct 1.13 ng/dL (0.76-1.46); Thyroid Stim Hormone (TSH) 1.31 uIU/mL (0.358-3.74); Triglycerides 86 mg/dL; Very Low Density Lipoprotein 17 mg/dL (5-40)
[2022-04-30 13:36] LABS: Differential Comment SCANNED
[2022-05-01 20:08] LABS: DHEA Sulfate 46.7 ug/dL (20.4-186.6)
[2022-05-04 10:56] LABS: Pathologist Review Reviewed
== END | disposition home or self-care (01) ==
PROVIDERS: PCP Internal Medicine; Referring Provider Specialist; Visit Provider Specialist
DX: R53.83 Other fatigue (principal); E78.5 Hyperlipidemia, unspecified; E55.9 Vitamin D deficiency, unspecified; N95.1 Menopausal and female climacteric states
CPT/HCPCS: 36415; 80053; 80061; 82306; 82607; 82627; 82670; 84144; 84403; 84439; 84443; 84481; 85025; 82626

== ENCOUNTER → 2022-10-13 | Outpatient (CLI) | payer MEDICARE, SELFPAY ==
--- NOTE | 2022-10-13 08:00 | BI_ITS ---
BI/SCRN MAMM (CAD)W/JOHANN BILAT IMPRESSION: Stable bilateral screening mammogram. Yearly follow-up mammogram recommended. (A) ASSESSMENT CATEGORY: BIRADS Category 2: Benign. A letter regarding these results will be sent to the patient by the facility within 30 days. Approximately 10% of breast cancers are not detected by mammography. A normal mammogram should not delay biopsy of a clinically suspicious abnormality. Electronically Signed: Akil Rosario DO at 15:04 EDT ,
== END | disposition home or self-care (01) ==
LOC: OPBI 07:58
PROVIDERS: PCP Internal Medicine; Referring Provider Internal Medicine; Visit Provider Internal Medicine
DX: Z12.31 Encounter for screening mammogram for malignant neoplasm of breast (principal); Z85.3 Personal history of malignant neoplasm of breast; Z80.3 Family history of malignant neoplasm of breast
CPT/HCPCS: 77063; 77067

== ENCOUNTER → 2023-04-13 | Outpatient (CLI) | payer MEDICARE, SELFPAY ==
--- NOTE | 2023-04-13 08:22 | BD_ITS ---
STUDY: DUAL ENERGY X-RAY ABSORPTIOMETRY / DXA REASON FOR EXAM: Female, 68 years old. 627.8Menopausal postmenopausal BONE DENSITY REASON FOR EXAM TECHNIQUE: Bone Mineral Density (BMD) measurements of lumbar spine and bilateral hips were obtained. COMPARISON: Comparison is made with prior study dated April 08, 2021. FINDINGS: Lumbar Spine (L1-L4): g/cm2 (1.062) / T-score (0.8) / Z-score (2.6) Findings are suggestive of normal bone density with a low fracture risk. Left Femur Total: g/cm2 (0.734) / T-score (-1.7) / Z-score (-0.3) Left Femoral Neck: g/cm2 (0.600) / T-score (-2.2) / Z-score (-0.6) Right Femur Total: g/cm2 (0.746) / T-score (-1.6) / Z-score (-0.2) Right Femoral Neck: g/cm2 (0.607) / T-score (-2.2) / Z-score (-0.5) The T-Scores on the most recent prior examination were: Lumbar Spine (L1-L4): There has been improvement of bone density since the previous examination. Left Femur Total: which represents a worsening of 3.2%. Right Femur Total: which represents a worsening of 1.9%. BD/Dexa Bone Density Study IMPRESSION: The patient is considered osteopenic as outlined below according to [place] Organization (WHO) criteria with a high fracture risk. There has been worsening of bone density since the previous examination. Reference Information: The T-score is the number of standard deviations above or below the standard which is normal for young adults at their peak bone mineral density. The World Health Organization (WHO) interprets the T-scores as follows: Above -1 Normal bone density Between -1 and -2.5 Osteopenia Equal to / or below -2.5 Osteoporosis As a practical clinical guideline, osteopenia may be graded as follows: Mild -1 through -1.5 Moderate -1.6 through -2.0 Severe -2.1 through -2.4 The Z-score is the number of standard deviations above or below age-matched controls. A Z-score of less than -1.5 would be considered abnormal. References: 1. NIH Osteoporosis and Related Bone Diseases www osteo.org 2. International Society for Clinical Densitometry www iscd.org 3. National Osteoporosis Foundation www nof.org Electronically Signed: Tobin Salcido MD at 15:10 EST ,
== END | disposition home or self-care (01) ==
LOC: OPBD 08:16
PROVIDERS: PCP Internal Medicine; Referring Provider Internal Medicine; Visit Provider Internal Medicine
DX: Z78.0 Asymptomatic menopausal state (principal)
CPT/HCPCS: 77080

== ENCOUNTER → 2023-06-25 | Outpatient (CLI) | payer MEDICARE, SELFPAY ==
--- NOTE | 2023-06-25 07:29 | MRI_ITS ---
EXAM: MR THORACIC SPINE WITHOUT INTRAVENOUS CONTRAST CLINICAL INDICATION: Pain in thoracic spine TECHNIQUE: Multiplanar and multisequence MR images of the thoracic spine without intravenous contrast. COMPARISON: No relevant prior studies available. FINDINGS: VERTEBRAE: Normal. No fracture. Normal vertebral bodies and posterior elements. Normal alignment. There is preservation of the normal thoracic kyphosis. No scoliosis. DISCS/SPINAL CANAL/NEURAL FORAMINA: Mild multilevel disc space narrowing at the midthoracic level. Normal spinal canal and neuroforamina. SPINAL CORD: Normal. Normal in signal and morphology. Normal conus medullaris. SOFT TISSUES: Normal. MRI/Spine Thoracic (Routine) IMPRESSION: Mild mid thoracic spondylosis. Normal caliber spinal canal and neuroforamina. Normal thoracic cord. Electronically Signed: Cecilio Blanchard MD at 14:47 EST ,
== END | disposition home or self-care (01) ==
PROVIDERS: PCP Internal Medicine; Referring Provider Internal Medicine; Visit Provider Internal Medicine
DX: M54.6 Pain in thoracic spine (principal)
CPT/HCPCS: 72146

== ENCOUNTER → 2023-09-07 | Outpatient (CLI) | payer MEDICARE, SELFPAY ==
--- NOTE | 2023-09-07 07:49 | AAVD_ITS ---
Reason For Study: CAD, family hx FMD, abnormal MARY CARMEN Aorta Measurements Aorta Doppler Measurements Proximal aorta measures1.7 x 1.64cm. in cross- Peak systolic flow velocities within the proximal sectional axis. aorta measure 72.3 cm/sec. Proximal aorta measures1.68cm. in longitudinal Peak systolic flow velocities within the mid aorta axis. measure 85.0 cm/sec. Mid aorta measures1.42 x 1.41cm. in cross- Peak systolic flow velocities within the distal sectional axis. aorta measure 83.2 cm/sec. Mid aorta measures1.41cm. in longitudinal axis. Distal aorta measures1.45 x 1.49cm. in cross- sectional axis. Distal aorta measures1.45cm. in longitudinal axis. Left Iliac Artery Left iliac artery measures .96 x 1.0 cm. in the cross-sectional axis. Left iliac artery measures .94 cm. in the longitudinal axis. Peak systolic velocity in the left iliac artery measures 122.1 cm/sec. Right Iliac Artery Right iliac artery measures .85 x .74 cm. in the cross-sectional axis. Right iliac artery measures .82 cm. in the longitudinal axis. Peak systolic velocity in the right iliac artery measures 152.8 cm/sec. Procedure Aorta IVC Iliac vasculature or bypass grafts 20060. The exam was diagnostic. Exam performed in department. VL/Abd Aortic/IVC Duplex scan Interpretation Summary Aorta patent, normal caliber. Bilateral iliac arteries patent, normal caliber. No abnormal vessel turbulence or structural abnormalities to suggest FMD Ordering Physician: Lorena Talbot Referring Physician: Lorena Talbot Performed By: Brent Montoya, RVT
--- NOTE | 2023-09-07 07:49 | RDU_ITS ---
Reason For Study: CAD, family hx FMD Right Renal Artery Left Renal Artery Right renal artery ostium 88.7/24.8 Left renal artery ostium 104.6/31.6 RSV/EDV. PSV/EDV. Right renal artery proximal Left renal artery proximal PSV/EDV 81.4/21.2 PSV/EDV. 95.5/17.0 . Right renal artery mid 136.8/44.1 Left renal artery mid 115.6/33.4 PSV/EDV. PSV/EDV . Right renal artery distal 82.7/31.6 Left renal artery distal 101.4/35.6 PSV/EDV. PSV/EDV. Right Renal Parenchyma Left Renal Parenchyma Upper Pole Medula 43.2/14.0 Left upper pole medulla 26.5/8.7 PSV/EDV. PSV/EDV . Right upper pole medulla EDR .32 . Left upper pole medulla EDR .33 . Right upper pole medulla R.I. .68 . Left upper pole medulla R.I. .67 . Upper Rios Cortx 27.7/9.4 PSV/EDV. UP Cortex 18.5/7.5 PSV/EDV. Right upper pole cortex EDR .34 . Left upper pole cortex EDR .4 . Right upper pole cortex R.I. .66 . Left upper pole cortex R.I. .6 . Right lower Pole medulla 49.6/19.4 Left lower Pole medulla 36.4/13.0 PSV/EDV . PSV/EDV . Right lower pole medulla EDR .39 . Left lower pole medulla EDR .36 . Right lower pole medulla R.I. .61 . Left lower pole medulla R.I. .64 . Lower Pole Cortex 27.7/12.1 Lower Pole Cortx 32.1/11.8 PSV/EDV. PSV/EDV. Left lower pole cortex EDR .37 . Right lower pole cortex EDR .44 . Left lower pole cortex R.I. .63 . Right lower pole cortex R.I. .56 . Left Renal Hilar Right Renal Hilar LT Hilar avg 59.5/22.2 PSV/EDV . Right Hilar avg 46.8/18.5 PSV/EDV. Left hilar acceleration time 50 Right hilar acceleration time 60 m/sec. m/sec. Left Renal Dimensions Right Renal Dimensions Left kidney size 11.4 cm . Right kidney size 11.08 cm . Left cortical dimension 1.71 cm . Right cortical dimension 1.67 cm . Aorta Proximal abdominal aorta 1.68 x 1.65 cm . Proximal abdominal aorta peak systolic velocity is 114.3 cm/sec . Distal abdominal aorta 1.41 x 1.34 cm . Distal abdominal aorta peak systolic velocity is 105.2 cm/sec . Normal renal veins bilat. VL/Renal Artery Duplex Ultrasound Interpretation Summary Right renal artery patent with normal velocities and no evidence of stenosis. Left renal artery patent with normal velocities and no evidence of stenosis. Right renal vein patent. Left renal vein patent. Right kidney normal in size. Left kidney normal in size. Ordering Physician: Lorena Talbot Referring Physician: Lorena Talbot Performed By: Brent Montoya RVT
--- NOTE | 2023-09-07 07:57 | CDU_ITS ---
Version 2 Reason For Study: CAD, family hx FMD Rt. Velocities/BP Lt. Velocities/BP Prox CCA 108.4/36.0 cm/sec. Prox CCA 116.2/36.4 cm/sec. Mid CCA 108.4/31.1 cm/sec. Mid CCA 107.6/31.5 cm/sec. Dist CCA 112.1/33.5 cm/sec. Dist CCA 123.6/38.9 cm/sec. Prox ICA 128.5/19.2 cm/sec. Prox ICA 47.5/19.2 cm/sec. Mid ICA 88.0/27.8 cm/sec. Mid ICA 75.8/31.3 cm/sec. Dist ICA 86.7/33.7 cm/sec. Dist ICA 78.3/27.0 cm/sec. Rt. ICA/CCA = 1.2. Lt. ICA/CCA = .7. Prox ECA 80.2/13.9 cm/sec. Prox ECA 95.3/15.5 cm/sec. Rt. Vert. 64.9/21.4 cm/sec. Lt. Vert. 86.6/30.6 cm/sec. Right Extracranial There is intimal thickening but no significant atherosclerotic plaque noted in the right common carotid artery. There is heterogeneous, irregular atherosclerotic plaque noted in the right internal carotid artery. The right internal carotid artery is very tortuous. There is intimal thickening but no significant atherosclerotic plaque noted in the right external carotid artery. Antegrade flow is noted in the right vertebral artery. Left Extracranial There is intimal thickening but no significant atherosclerotic plaque noted in the left common carotid artery. There is intimal thickening but no significant atherosclerotic plaque noted in the left internal carotid artery. The left internal carotid artery is very tortuous. There is intimal thickening but no significant atherosclerotic plaque noted in the left external carotid artery. Antegrade flow is noted in the left vertebral artery. Procedure Carotid Duplex [id number]. This is a Carotid Duplex examination using B-mode, color flow and specral Doppler. The exam was diagnostic. Exam performed in department. VL/Carotid Duplex Ultrasound Interpretation Summary Moderate (50-69%) stenosis right extracranial internal carotid. Normal left extracranial internal carotid. Patent and antegrade vertebrals bilaterally. No vessel structural abnormalities to indicate presence of FMD. Ordering Physician: Lorena Talbot Referring Physician: Lorena Talbot Performed By: Brent Montoya RVT
== END | disposition home or self-care (01) ==
PROVIDERS: PCP Internal Medicine; Referring Provider Internal Medicine; Visit Provider Internal Medicine
DX: I25.10 Atherosclerotic heart disease of native coronary artery without angina pectoris (principal); D89.89 Other specified disorders involving the immune mechanism, not elsewhere classified; M19.90 Unspecified osteoarthritis, unspecified site; R68.89 Other general symptoms and signs; Z82.49 Family history of ischemic heart disease and other diseases of the circulatory system; R07.81 Pleurodynia
CPT/HCPCS: 93880; 93975; 93978

== ENCOUNTER 2023-10-11 08:30 | Day surgery (SDC) | payer MEDICARE, SELFPAY ==
[2023-10-11] VITALS (8 sets, daily range): BP systolic 88–117; BP diastolic 47–68; PULSE 55–74; RESP 16; TEMP 36.4–36.7; O2SAT 97–100; BMI 25.9
[2023-10-11] MEDS: Lactated Ringers 1,000 ML 15 ML IV (09:38)
--- NOTE | 2023-10-11 09:55 | PCM.PRE.AN2 ---
ASA Classification* ASA Classification ASA Classification: 2 Assessment & Plan Anesthesia* Anesthesia Assessment Anesthesia Assessment: Discussed sedation and/or anesthesia options, risks, benefits, and alternatives with patient/parents/legal guardian/POA. Questions invited. The patient/parents/legal guardian/POA seems to understand and agrees to proceed with anesthesia plan. Reviewed the physical assessment, medical history, allergy history and patient home medications list prior to surgery/procedure/anesthetic and documented any changes. Performed airway and anesthesia risk assessments. 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 When Was Last Pacemaker Check QUESTION #4 FULL TEXT: You/Your Family Experience fever (hyperthermia) with Anesthesia Last Oral Intake Last Oral intake: Last Oral Intake NPO since 00:00 10/11/23 09:35 Meds taken in AM with sips of No 10/11/23 09:35 water? Meds patient instructed to take am of surgery PONV PONV - preschool teacher aide: PONV - preschool teacher aide Female Yes 10/05/23 15:54 HX of Motion Sickness No 10/05/23 15:54 HX of N/V After Surgery No 10/05/23 15:54 Non-Smoker Yes 10/05/23 15:54 Duration of Surgery greater No 10/05/23 15:54 than 60 minutes Number of Risk Factors 2 10/05/23 15:54 PONV Score Moderate Risk 10/05/23 15:54 Height & Weight Height & Weight: Anesthesia: Height & Weight Height 5 ft 4 in 10/11/23 09:35 Weight: 68.402 kg 10/11/23 09:35 Body Mass Index (BMI) 25.9 10/11/23 09:35 Respiratory Assessment Respiratory Assessment - preschool teacher aide: Respiratory Tract Infection Hx - preschool teacher aide Hx Respiratory Tract Infection No 10/05/23 15:54 STOP Sleep Apnea STOP Sleep Apnea - preschool teacher aide: STOP Sleep Apnea - preschool teacher aide Hx Hypertension No 10/05/23 15:54 Hx Sleep Apnea No 10/05/23 15:54 CPAP BIPAP Do you snore loudly (louder No 10/05/23 15:54 than talking or can be heard Do you often feel tired/ No 10/05/23 15:54 fatigued/ sleepy during daytime? Has anyone observed you stop No 10/05/23 15:54 breathing during sleep? STOP Results Negative 10/05/23 15:54 QUESTION #5 FULL TEXT : Do you snore loudly (louder than talking or can be heard through closed doors)? 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 Specify any problems Hx of Preganancy in last 3 N/A 10/05/23 15:54 Months Nurse Filling Out Transfusion NBUCHER 10/05/23 15:54 & Questions: Date: 10/05/23 10/05/23 15:54 Time: 15:55 10/05/23 15:54 Patient unable to answer at this time (ie. confused, unrespo /Reproduction History /Reproductive History - preschool teacher aide: /Reproductive Hx- preschool teacher aide Hx Now No 10/05/23 15:54 Gestational Age (in weeks): EDC: Hx Hx Para Hx Section SAB No 10/05/23 15:54 Active Medications Active Medications: Current Medications Generic Name Dose Route Start Last Admin Trade Name Freq PRN Reason Stop Dose Admin Lactated Ringer's 1,000 mls @ 15 mls/hr 10/11/23 09:30 10/11/23 09:38 IV 15 mls/hr .Q48H DEVANG Administration Anesthesia Focused Assessment* Temperature: 97.8 F Pulse Rate: 72 Blood Pressure: 117/68 Respiratory Rate: 16 Pulse Ox: 99 Airway Assessment Mouth opens: >3 cm Mallampati Score: II Focused Labs Anesthesia Preop lab: CBC WBC 3.9 K/mm3 (4.4-11.0) L 04/30/22 10:08 RBC 3.96 M/mm3 (4.2-5.4) L 04/30/22 10:08 Hgb 13.6 g/dL (12.0-15.0) 04/30/22 10:08 Hct 40.6 % (37-47) 04/30/22 10:08 Plt Count 219 K/mm3 (150-450) 04/30/22 10:08 CHEMISTRY Potassium 3.8 mmol/L (3.5-5.1) 04/30/22 10:08 Sodium 140 mmol/L (136-145) 04/30/22 10:08 BUN 12 mg/dL (7-18) 04/30/22 10:08 Creatinine 0.57 mg/dL (0.55-1.02) 04/30/22 10:08 Glucose 97 mg/dL (74-106) 04/30/22 10:08 TSH 1.31 uIU/mL (0.358-3.74) 04/30/22 10:08 COAG Review of Systems (Anesthesia) ROS Narrative System reviewed and no additional complaints, except as documented. PFSH Medical History History of ankle fracture (~1970) History of wrist fracture (~1960) Raynaud's disease Cancer History of steroid therapy Back pain Non-smoker Home Medications ?Medication ?Instructions ?Recorded ?Last Taken ?Type prednisone 5 mg tablet 3 mg PO DAILY 04/04/15 10/10/23 History acetaminophen 500 mg tablet 500 mg PO Q6H PRN PRN Sleep 07/07/15 10/10/23 History cholecalciferol (vitamin D3) 25 2,000 unit PO DAILY 07/07/15 10/10/23 History mcg (1,000 unit) tablet (Vitamin D3) diphenhydramine 25 1 ea PO QHS PRN Sleep 07/07/15 10/10/23 History mg-acetaminophen 500 mg tablet (Tylenol PM Extra Strength) omega-3 fatty acids-fish oil 300 2 ea PO DAILY 07/07/15 10/10/23 History mg-1,000 mg capsule turmeric (bulk) 100 % powder 1 cap PO DAILY 07/07/15 10/10/23 History azathioprine 50 mg tablet 150 mg PO DAILY 10/05/23 10/10/23 History [id number] oil-omega 3-vit E 1 cap PO DAILY 10/05/23 10/10/23 History 50 mg-550 mg-300 mg-30 unit capsule vitamins A,C,K-ifhi-pgsjgm 2,148 2 tab PO BID 10/05/23 10/10/23 History mcg-113 mg-45 mg-17.4 mg tablet (Eye Multivitamin) Allergy/AdvReac Type Severity Reaction Status Date / Time No Known Allergies Allergy Verified 10/11/23 09:34 Surgical History Hx of LASIK (~2004) History of blepharoplasty (~2022) History of foot surgery History of hand surgery (~2021) History of breast augmentation (~2007) History of bilateral carpal tunnel release History of bunionectomy of both great toes History of arthroscopy of left knee (~1998) History of lumpectomy of left breast (~2006) History of tonsillectomy (~1959) History of hysterectomy (~2007) History of hernia repair (~1998) History of appendectomy (~1963) Social History Smoking Status: Former smoker
--- NOTE | 2023-10-11 10:02 | RAD_ITS ---
STUDY: X-RAY - THORACIC SPINE REASON FOR EXAM: Female, 68 years old. Intraprocedural digital documentation views. TECHNIQUE: 3 intraprocedural documentation views of the thoracic spine were obtained. COMPARISON: None. FINDINGS: 3 intraprocedural digital documentation views show tip of needle at approximately the T10 vertebral level. RAD/Thoracic Spine Min 4 Views IMPRESSION: Intraprocedural digital documentation views. Electronically Signed: Dom Strange MD at 13:46 EDT ,
[2023-10-11] MEDS: MethylPREDNISolone Acetate 80 MG/ML Vial (10:08)
--- NOTE | 2023-10-11 10:19 | PCM.POST.ANE ---
Anesthesia: Postop Eval I Current Vital Signs Temperature: 98.1 F Pulse Rate: 74 Blood Pressure: 88/53 Respiratory Rate: 16 Pulse Ox: 97 Oxygen Delivery Method: Room Air Assessment Airway patent: Yes Spontaneous unlabored respirations: Yes Mental status: Awake and Calm nausea: No Vomiting: No Anesthesia Complication: No Fluid Hydration Crystalloid volume administer (ml): 500 Total IV fluid infused: 500 Progress Note Anesthesia document: Postop Eval 1 completed: Yes
--- NOTE | 2023-10-11 11:43 | OP.PCM_ITS ---
Report of Operation Date of Procedure: 10/11/23 Description of Surgical Findings:: PREOPERATIVE DIAGNOSES: Thoracic radiculopathy, thoracic degenerative disc disease, thoracic spinal stenosis POSTOPERATIVE DIAGNOSES:Thoracic radiculopathy, thoracic degenerative disc disease, thoracic spinal stenosis PROCEDURE PERFORMED: Thoracic epidural steroid injection, interlaminar at T8-9 under fluoroscopic guidance ANESTHESIA: MAC BLOOD LOSS: Minimal. COMPLICATIONS: None. DESCRIPTION OF PROCEDURE: History and physical of today was reviewed. Risks and benefits of the procedure were explained. The patient understood and agreed to proceed. Informed consent was obtained. IV inserted per routine protocol. The patient was taken to the operating room and placed in the prone position with a pillow positioned underneath the chest. The mid back area was prepped and draped in a sterile fashion using iodine x3. Under fluoroscopy guidance on an AP view, the T8-9 interlaminar space was identified. The skin and subcutaneous tissue was anesthetized with approximately 3 mL of 1% lidocaine using a 25-gauge regular needle. Under direct visualization on fluoroscopy, on AP view, using a 20-gauge 3-1/2-inch Tuohy needle, the needle was advanced via the skin. The tip of the needle was maneuvered and directed towards the interlaminar space at T8-9 loss of resistance technique was carried to air. Loss of resistance technique was encountered. Once encountered, after negative aspiration for blood and CSF, a total of 2 mL of contrast was injected to conf irm correct placement of the needle as well as cephalocaudal spread of the contrast. Confirmation was obtained on AP as well as lateral view. After repeated negative aspiration and confirmation, a total of 6 mL of preservative- free normal saline and 80 mg of Depo-Medrol was injected easily. The needle was then removed intact. The patient experienced no sign or symptoms of intrathecal or intravascular injection. The patient experienced no paresthesia. The procedure was completed without any apparent difficulty or any complications. The patient appeared to tolerate it well. ASSESSMENT AND PLAN: This is a 68-year-old female with thoracic radiculopathy, thoracic degenerative disc disease, thoracic spinal stenosis status post thoracic epidural steroid injection interlaminar at T8-9 under fluoroscopic guidance, patient will continue current medications, patient will follow approximately 2 weeks for reevaluation.
--- NOTE | 2023-10-11 12:38 | POSTOPAN2_ITS ---
Anesthesia Postop Eval I Sum Postop Eval Completion status Anesthesia document: Postop Eval 1 completed: Yes Anesthesia Postop Eval I Summary Anesthesia Postop Eval I Summary: Anesthesia Postop Eval I: Assessment Summary Airway patent Yes 10/11/23 10:20 FOREIGN LANGUAGE TEACHER.MDOT Spontaneous unlabored Yes 10/11/23 10:20 FOREIGN LANGUAGE TEACHER.MDOT respirations Mental status Awake,Calm 10/11/23 10:20 FOREIGN LANGUAGE TEACHER.MDOT nausea No 10/11/23 10:20 FOREIGN LANGUAGE TEACHER.MDOT Vomiting No 10/11/23 10:20 FOREIGN LANGUAGE TEACHER.MDOT Anesthesia Postop Eval I: Fluid Summary Crystalloid volume administer 500 10/11/23 10:20 FOREIGN LANGUAGE TEACHER.MDOT (ml) Colloids volume administered ( ml) Blood Product volume administered (ml) Total IV fluid infused 500 10/11/23 10:20 FOREIGN LANGUAGE TEACHER.MDOT Anesthesia Postop Eval I: Summary Notes Anesthesia Complication No 10/11/23 10:20 FOREIGN LANGUAGE TEACHER.MDOT Anesthesia Complication Comment: Post-operative progress note Anesthesia: Postop Eval II Evaluation Mental status: Awake Pain Level: 0 nausea: No Vomiting: No Complications Anesthesia Complication: No
--- NOTE | 2023-10-11 12:38 | PCM.POSTANE2 ---
Anesthesia Postop Eval I Sum Postop Eval Completion status Anesthesia document: Postop Eval 1 completed: Yes Anesthesia Postop Eval I Summary Anesthesia Postop Eval I Summary: Anesthesia Postop Eval I: Assessment Summary Airway patent Yes 10/11/23 10:20 PATHOLOGY LABORATORY DIRECTOR.MDOT Spontaneous unlabored Yes 10/11/23 10:20 PATHOLOGY LABORATORY DIRECTOR.MDOT respirations Mental status Awake,Calm 10/11/23 10:20 PATHOLOGY LABORATORY DIRECTOR.MDOT nausea No 10/11/23 10:20 PATHOLOGY LABORATORY DIRECTOR.MDOT Vomiting No 10/11/23 10:20 PATHOLOGY LABORATORY DIRECTOR.MDOT Anesthesia Postop Eval I: Fluid Summary Crystalloid volume administer 500 10/11/23 10:20 PATHOLOGY LABORATORY DIRECTOR.MDOT (ml) Colloids volume administered ( ml) Blood Product volume administered (ml) Total IV fluid infused 500 10/11/23 10:20 PATHOLOGY LABORATORY DIRECTOR.MDOT Anesthesia Postop Eval I: Summary Notes Anesthesia Complication No 10/11/23 10:20 PATHOLOGY LABORATORY DIRECTOR.MDOT Anesthesia Complication Comment: Post-operative progress note Anesthesia: Postop Eval II Evaluation Mental status: Awake Pain Level: 0 nausea: No Vomiting: No Complications Anesthesia Complication: No
== END 2023-10-11 11:13 | disposition home or self-care (01) ==
LOC: SDC 08:33 → AC 09:59
PROVIDERS: PCP Internal Medicine; Referring Provider Anesthesiology Pain Medicine; Visit Provider Anesthesiology Pain Medicine
PROC: 3E0S3BZ Introduction of Anesthetic Agent into Epidural Space, Percutaneous Approach (ICD-10-PCS; CPT 62321; principal; 2023-10-11 09:35)
DX: M51.14 Intervertebral disc disorders with radiculopathy, thoracic region (principal); M48.04 Spinal stenosis, thoracic region; Z79.899 Other long term (current) drug therapy
CPT/HCPCS: 62321; 01992; 64490; 72074; J7120

== ENCOUNTER → 2023-12-20 | Outpatient (CLI) | payer MEDICARE, SELFPAY ==
--- NOTE | 2023-12-20 08:30 | BI_ITS ---
MAMMOGRAPHY - BILATERAL SCREENING REASON FOR EXAM: Female, 68 years old. Routine annual screening examination. PERTINENT HISTORY: Personal history of breast cancer. Status post left lumpectomy. Sister with breast cancer. Mother with breast cancer. Grandmother with breast cancer. Aunts with breast cancer. TECHNIQUE: Digital bilateral breast johann (3D mammographic acquisition) in the CC and MLO projections. 2-D mediolateral oblique (MLO) and craniocaudad (CC) views of both breasts were obtained. CAD: Full Field Digital Mammography with Computer Added Detection was performed. COMPARISON: Comparison is made with prior study dated October 13, 2022 and September 03, 2021. FINDINGS: Breast Composition: The breasts are heterogeneously dense, which may obscure small masses. There are no dominant masses or suspicious calcifications. Once again, the patient is status post lumpectomy in the deep central lateral aspect of the left breast with resultant postoperative scarring and dystrophic calcification. Surgical clips are also seen in the left axilla. No other significant abnormalities are identified. There has been no significant change since the prior study. BI/SCRN MAMM (CAD)W/JOHANN BILAT IMPRESSION: Stable bilateral screening mammogram. Yearly follow-up mammogram recommended. (A) ASSESSMENT CATEGORY: BIRADS Category 2: Benign. A letter regarding these results will be sent to the patient by the facility within 30 days. Approximately 10% of breast cancers are not detected by mammography. A normal mammogram should not delay biopsy of a clinically suspicious abnormality. [id number] Electronically Signed: Tobin Salcido MD at 9:48 EDT ,
== END | disposition home or self-care (01) ==
LOC: OPBI 08:29
PROVIDERS: PCP Internal Medicine; Referring Provider Internal Medicine; Visit Provider Internal Medicine
DX: Z12.31 Encounter for screening mammogram for malignant neoplasm of breast (principal); Z85.3 Personal history of malignant neoplasm of breast; Z80.3 Family history of malignant neoplasm of breast
CPT/HCPCS: 77063; 77067

== ENCOUNTER → 2024-10-13 | Outpatient (CLI) | payer MEDICARE, SELFPAY ==
--- NOTE | 2024-10-13 15:35 | CT_ITS ---
EXAM: CT Angiography Chest Without and With Intravenous Contrast CLINICAL INDICATION: OTHER SPECIFIED ABNORMAL FINDINGS OF BLOOD CHEMISTRY TECHNIQUE: Axial computed tomographic angiography images of the chest without and with intravenous contrast. This CT exam was performed using one or more of the following dose reduction techniques: automated exposure control, adjustment of the mA and/or kV according to patient size, and/or use of iterative reconstruction technique. MIP reconstructed images were created and reviewed. COMPARISON: No relevant prior studies available. FINDINGS: LIMITATIONS: Suboptimal opacification of the pulmonary arteries. PULMONARY ARTERIES: No pulmonary embolism is identified. Some of the distal pulmonary arteries cannot be evaluated due to suboptimal opacification. AORTA: No acute findings. No thoracic aortic aneurysm. LUNGS AND PLEURAL SPACES: COPD with areas of heterogeneous inflation. No mass. No consolidation. No significant effusion. No pneumothorax. HEART: Unremarkable. No cardiomegaly. No significant pericardial effusion. No evidence of RV dysfunction. BONES/JOINTS: No acute fracture. No dislocation. SOFT TISSUES: Unremarkable. LYMPH NODES: Unremarkable. No enlarged lymph nodes. CT/CTA Chest W/WO Contrast IMPRESSION: 1. No pulmonary embolism is identified. Some of the distal pulmonary arteries cannot be evaluated due to suboptimal opacification. 2. COPD with areas of heterogeneous inflation. 3. Continue low-dose CT scan of the chest in 12 months is recommended. Reading Location: [id number]
== END | disposition home or self-care (01) ==
LOC: CT 15:02
PROVIDERS: PCP Internal Medicine; Referring Provider Internal Medicine; Visit Provider Internal Medicine
DX: R79.89 Other specified abnormal findings of blood chemistry (principal)
CPT/HCPCS: 71275; Q9967

== ENCOUNTER → 2024-10-13 | Outpatient (CLI) | payer MEDICARE, SELFPAY ==
[2024-10-13 12:58] LABS: D-Dimer Quantitative (DVT/PE) 0.95 FEU/ug/m (0.27-0.49)
== END | disposition home or self-care (01) ==
LOC: LABSPEC 12:05
PROVIDERS: PCP Internal Medicine; Referring Provider Internal Medicine; Visit Provider Internal Medicine
DX: I47.10 Supraventricular tachycardia, unspecified (principal)
CPT/HCPCS: 85379

== ENCOUNTER → 2024-11-17 | Outpatient (CLI) | payer MEDICARE, SELFPAY ==
--- NOTE | 2024-11-17 09:01 | ECHOD_ITS ---
Reason For Study Reason For Study: Abnormal EKG Procedure This was a 2D Doppler, Color Flow transthoracic echocardiogram. Myocardial strain analysis was performed in this exam to aid in the assessment of cardiac function. Exam performed in department. Left Ventricle Normal LV size. The left ventricular ejection fraction is 70 %. Stage 1 diastolic dysfunction. No regional wall motion abnormalities noted. Right Ventricle Normal RV size. Normal systolic function. Atria Normal left atrium. Normal right atrium. Mitral Valve Normal mitral valve. Tricuspid Valve Normal tricuspid valve. Mild (1+) tricuspid valve insufficiency. Pulmonary artery systolic pressure is 33 mmHg. Pulmonic Valve Normal pulmonic valve. Great Vessels Normal aortic root. The pulmonary artery is normal size. Inferior vena cava collapse with respiration. Pericardium/Pleural No pericardial effusion. MMode/2D Measurements & Calculations LVIDd: 4.3 cm IVSd: 0.91 cm Ao root diam: 2.9 cm LVIDs: 2.6 cm LVPWd: 0.88 cm RVDd: 3.2 cm FS: 39.8 % LAV(MOD-bp): 32.8 ml LVAd ap4: 24.4 cm2 SV(MOD-sp4): 43.5 ml LAV(MOD-bp) Indexed: 19.7 ml/m2 LVLd ap4: 7.8 cm SI(MOD-sp4): 26.2 ml/m2 LAV(MOD-sp2): 29.8 ml EDV(MOD-sp4): 62.4 ml LAV(MOD-sp4): 31.4 ml EDV(sp4-el): 64.7 ml LVAs ap4: 11.8 cm2 LVLs ap4: 6.4 cm ESV(MOD-sp4): 19.0 ml ESV(sp4-el): 18.4 ml EF(MOD-sp4): 69.6 % EF(sp4-el): 71.6 % SV(sp4-el): 46.3 ml LA A4 area: 15.2 cm2 RA A4 area: 13.5 cm2 Time Measurements MV dec time: 0.23 sec Doppler Measurements & Calculations MV E max mani: 65.0 cm/sec Lat Peak E' Mani: 8.5 cm/sec Med Peak E' Mani: 9.3 cm/sec MV A max mani: 85.4 cm/sec E/E' lat: 7.7 E/E' med: 7.0 MV E/A: 0.76 MV dec slope: 277.9 cm/sec2 Ao V2 max: 139.1 cm/sec LV V1 max: 101.4 cm/sec Ao max P.7 mmHg LV V1 max P.1 mmHg Ao V2 mean: 96.9 cm/sec LV V1 mean P.5 mmHg Ao mean P.2 mmHg LV V1 mean: 73.7 cm/sec Ao V2 VTI: 29.6 cm LV V1 VTI: 22.5 cm AV (velocity ratio): 0.76 PA V2 max: 81.3 cm/sec TR max mani: 271.1 cm/sec TR max P.4 mmHg ECHO/Echo Complete Interpretation Summary Normal LV size. The left ventricular ejection fraction is 70 %. Stage 1 diastolic dysfunction. Mild (1+) tricuspid valve insufficiency. The global longitudinal strain is normal. The global longitudinal strain = -20. 4 % (normal). Ordering Physician: Lorena Talbot Referring Physician: Lorena Talbot Performed By: Kiara Paz, RDCS, RVT
== END | disposition home or self-care (01) ==
PROVIDERS: PCP Internal Medicine; Referring Provider Internal Medicine; Visit Provider Internal Medicine
DX: R94.31 Abnormal electrocardiogram [ECG] [EKG] (principal); I47.10 Supraventricular tachycardia, unspecified
CPT/HCPCS: 93306

== ENCOUNTER → 2024-12-06 | Outpatient (CLI) | payer MEDICARE, SELFPAY | END | disposition home or self-care (01) | PROVIDERS: PCP Internal Medicine; Referring Provider Internal Medicine Cardiovascular Disease; Visit Provider Internal Medicine Cardiovascular Disease | DX: I47.10 Supraventricular tachycardia, unspecified (principal) | CPT/HCPCS: 93225; 93226 ==

== ENCOUNTER 2025-02-06 13:18 | Emergency (ER) | payer MEDICARE, SELFPAY ==
[2025-02-06 13:18] VITALS: BP 154/85; PULSE 68; RESP 16; TEMP 36.7; O2SAT 100
--- NOTE | 2025-02-06 13:30 | RAD_ITS ---
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 Joint spaces are normal Effusion: No effusion. Soft tissues: Soft tissues are unremarkable. Other: No foreign body RAD/Knee 4 or More Views IMPRESSION: 1. No acute abnormality. 2. Chondrocalcinosis of the menisci is seen. This can be seen with CPPD. Reading Location: [id number]
--- NOTE | 2025-02-06 14:40 | ED.VIS.FALL ---
HPI HPI - Fall History of Present Illness Chief Complaint: Fall Narrative Narrative: 69-year-old female who denies significant past medical history presents after falling into her trash can while she was trying to clean it. She states that she was bending over and fell directly into the bin. She states that her hands fell underneath the band and she scraped fingers on both of her hands. She also hit her right knee and is having pain on the right kneecap. While she may have struck her head and her right upper lip, she denies loss of consciousness. No neck pain. She states she does not take blood thinners. She believes her tetanus immunization is current, within the last 10 years. [facility] Medical History ILD (interstitial lung disease) Hyperlipidemia Anxiety CAD (coronary artery disease) Paroxysmal SVT (supraventricular tachycardia) Mild atherosclerosis of both carotid arteries Fatigue Tachycardia Palpitations Raynaud's disease History of steroid therapy Arthritis History of breast cancer Mild interstitial lung disease Antisynthetase syndrome Home Medications ?Medication ?Instructions ?Recorded ?Last Taken ?Type cholecalciferol (vitamin D3) 25 2,000 unit PO DAILY 07/07/15 10/10/23 History mcg (1,000 unit) tablet (Vitamin D3) omega-3 fatty acids-fish oil 300 2 ea PO DAILY 07/07/15 10/10/23 History mg-1,000 mg capsule turmeric (bulk) 100 % powder 1 cap PO DAILY 07/07/15 10/10/23 History azathioprine 50 mg tablet 150 mg PO DAILY 10/05/23 10/10/23 History vitamins A,C,C-lrwz-fouxng 2,148 2 tab PO BID 10/05/23 10/10/23 History mcg-113 mg-45 mg-17.4 mg tablet (Eye Multivitamin) anastrozole 1 mg tablet (Arimidex) 1 mg PO DAILY Breast cancer 11/09/24 Unknown History lorazepam 1 mg tablet (Ativan) 1 mg PO TID PRN 11/09/24 Unknown History mecobalamin (vitamin B12) 1,000 1,000 mcg PO QDAY 11/09/24 Unknown History mcg lozenges coenzyme Q10 30 mg capsule 30 mg PO QDAY 11/22/24 Unknown History magnesium citrate 100 mg tablet 150 mg PO QDAY 11/22/24 Unknown History prednisone 5 mg tablet 2 mg PO DAILY 11/22/24 Unknown History Allergy/AdvReac Type Severity Reaction Status Date / Time No Known Allergies Allergy Verified 02/06/25 13:19 Family History Brother Diabetes Cancer Sister Breast cancer COPD (chronic obstructive pulmonary disease) Heart disease Mother Breast cancer Colon cancer Surgical History History of ankle fracture (~1969) History of wrist fracture (~1959) Hx of LASIK (~2004) History of blepharoplasty (~2022) History of foot surgery History of hand surgery (~2021) History of breast augmentation (~2007) History of bilateral carpal tunnel release History of bunionectomy of both great toes History of arthroscopy of left knee (~1998) History of lumpectomy of left breast (~2006) History of tonsillectomy (~1959) History of hysterectomy (~2007) History of hernia repair (~1998) History of appendectomy (~1963) Social History Smoking Status: Former smoker alcohol intake: current substance use type: does not use ROS ROS ED ROS Narrative Review of systems positive for avulsion lacerations to bilateral hands, mainly on the 2nd through 3rd digits of her right and left hands. Positive right knee pain. No crepitance or pain in head or neck. No loss of consciousness. EXAM Physical Exam Narrative Exam Narrative: GCS 15. ABCs intact. HEENT examination shows slight redness to right forehead but no crepitance. PERRL, EOMI. No active bleeding 2 small laceration right upper lip, no gaping. Airway patent. Neck soft and supple without stridor. Full range of motion without pain. Cardiovascular semination regular rate and rhythm. Lungs are clear to auscultation bilaterally. Abdomen is soft and nontender without guarding or rebound. Positive bowel sounds. Mild tenderness palpation right patella. Right knee flexion and extension intact. Able to lift leg off bed without difficulty. Neurovascularly intact distally. No crepitance of right knee. I reviewed her prior records, and there is no history of immunization in her electronic medical record currently. However, once again she feels its current. On my individual interpretation of the x-rays of the right knee, there is no evidence of an acute fracture. I reviewed the radiology report which confirms my independent interpretation. At this point in time, she feels well enough to be discharged. Her skin avulsions on her fingers were cleansed and dressed, mainly the larger ones on her right hand and left hand. She does have small abrasions on digit 4 of her right hand and 2 and 3 at the PIP joints. I feel she can take kilp-ivy-fvzavhh medications as needed and follow-up with her primary care provider. She stated that she started to develop slight headache, and I offered CT scanning, but she declined. As she does not take blood thinners, and has a normal neurological examination, I feel she can be discharged to follow-up. Closed head injury instructions were given. Return instructions to the emergency department were reviewed. Disposition is discharged home in stable condition. Const Vital Signs: 02/06/25 13:18 02/06/25 13:40 Temperature 98.1 F Temperature Source Oral Pulse Rate 68 Respiratory Rate 16 Respiratory Effort Normal Blood Pressure 154/85 H Blood Pressure Mean 108 Pulse Ox 100 Oxygen Delivery Method Room Air Room Air MDM MDM Radiography Diagnostic Testing: Clinical Impression(s) from Imaging Studies Knee X-Ray 02/06/25 13:30 IMPRESSION: 1. No acute abnormality. 2. Chondrocalcinosis of the menisci is seen. This can be seen with CPPD. Reading Location: [facility] Discharge Plan Triage Chief Complaint: Fall ED Provider: Kwaku Patel Dx/Rx/DC Orders Clinical Impression: Avulsion of skin of finger, Contusion of mouth, Contusion of right knee, Closed head injury Instructions: ED Contusion, Lower Extremity, ED Mechanical Fall, ED Head Injury (Adult), ED Skin Tear (Skin Avulsion) Prescriptions: No Action lorazepam [Ativan] 1 mg tablet 1 mg PO TID PRN mecobalamin (vitamin B12) 1,000 mcg lozenge 1,000 mcg PO QDAY Rx Instructions: allow to dissolve in mouth OR may chew lightly before swallowing anastrozole [Arimidex] 1 mg tablet 1 mg PO DAILY coenzyme Q10 30 mg capsule 30 mg PO QDAY magnesium citrate 100 mg tablet 150 mg PO QDAY prednisone 5 mg tablet 2 mg PO DAILY Patient Comments: steroid cholecalciferol (vitamin D3) [Vitamin D3] 1,000 UNIT tablet 2,000 unit PO DAILY Patient Comments: supplement omega-3 fatty acids-fish oil 1 EACH capsule 2 ea PO DAILY Patient Comments: supplement turmeric (bulk) 5,000 GM powder 1 cap PO DAILY Patient Comments: SUPPLEMENT Eye Multivitamin 2,148 mcg-113 mg-45 mg-17.4mg tablet 2 tab PO BID Rx Instructions: administer with AM and PM meals azathioprine 50 MG tablet 150 mg PO DAILY Patient Comments: immunosuppress Rx Instructions: Resume Imuran 4 to 5 days after completion of antibiotics Primary Care Provider: Lorena Talbot Referrals: Lorena Talbot MD [Primary Care Provider, Internal Medicine] - 3-5 Days Activity Restrictions/Additional Instructions: Vwpb-nyv-wmomdid medications like Tylenol or ibuprofen as needed for pain. Follow-up with your primary care provider in 3 to 5 days if not improving. Return to the emergency department with new or worsening symptoms. Print Language: Kuwaiti Disposition Disposition: Home, Self Care
[2025-02-06 15:11] VITALS: BP 152/85; PULSE 61; RESP 18; TEMP 36.6; O2SAT 100
== END 2025-02-06 15:12 | disposition home or self-care (01) ==
PROVIDERS: Emergency Provider Emergency Medicine; PCP Internal Medicine; Visit Provider Emergency Medicine
DX: S09.90XA Unspecified injury of head, initial encounter (principal); I25.10 Atherosclerotic heart disease of native coronary artery without angina pectoris; E78.5 Hyperlipidemia, unspecified; Z87.891 Personal history of nicotine dependence; S80.01XA Contusion of right knee, initial encounter; S01.511A Laceration without foreign body of lip, initial encounter; S60.414A Abrasion of right ring finger, initial encounter; S61.210A Laceration without foreign body of right index finger without damage to nail, initial encounter; S61.211A Laceration without foreign body of left index finger without damage to nail, initial encounter; S61.212A Laceration without foreign body of right middle finger without damage to nail, initial encounter; S61.213A Laceration without foreign body of left middle finger without damage to nail, initial encounter; S60.410A Abrasion of right index finger, initial encounter; S60.412A Abrasion of right middle finger, initial encounter; W17.89XA Other fall from one level to another, initial encounter
CPT/HCPCS: 73564; 99282

== ENCOUNTER 2025-03-21 16:42 | Emergency (ER) | payer MEDICARE, SELFPAY ==
[2025-03-21 16:42] VITALS: BP 152/77; PULSE 130; RESP 22; TEMP 36.2; O2SAT 100; BMI 25.9
--- NOTE | 2025-03-21 16:46 | EX.ED.DYSGE1 ---
HPI History of Present Illness Chief Complaint: Palpitations Narrative Narrative: Patient is a 70-year-old female presenting to the emergency department for palpitations. Patient has a past medical history of anxiety, CAD, interstitial lung disease, paroxysmal SVT and hyperlipidemia. Patient just saw cardiology, Dr. De La Cruz in October 2024. Had a 48-hour Holter monitor that showed no events. She was not started on any beta-blockers. Patient states that right after 4 PM she started to feel palpitations like her prior episode of SVT. She states that she did drink 3 cups of coffee today and she thinks this is the reason. She denies any alcohol use today or drug use. Denies any chest pain, shortness of breath, abdominal pain, nausea, vomiting, diaphoresis. Denies any history of DVT or PE. Denies any recent travel, hospitalizations or surgeries. Denies any lower extremity edema. Prior similar symptoms: Yes Recent Illness/Hospitalization: No PFSH PFSH Medical History ILD (interstitial lung disease) Hyperlipidemia Anxiety CAD (coronary artery disease) Paroxysmal SVT (supraventricular tachycardia) Mild atherosclerosis of both carotid arteries Fatigue Tachycardia Palpitations Raynaud's disease History of steroid therapy Arthritis History of breast cancer Mild interstitial lung disease Antisynthetase syndrome Home Medications ?Medication ?Instructions ?Recorded ?Last Taken ?Type cholecalciferol (vitamin D3) 25 1,000 unit PO DAILY 07/07/15 03/21/25 History mcg (1,000 unit) tablet (Vitamin D3) omega-3 fatty acids-fish oil 300 2 ea PO DAILY 07/07/15 03/21/25 History mg-1,000 mg capsule turmeric (bulk) 100 % powder 1 cap PO DAILY 07/07/15 03/21/25 History azathioprine 50 mg tablet 150 mg PO DAILY 10/05/23 03/21/25 History lorazepam 1 mg tablet (Ativan) 1 mg PO TID PRN anxiety 11/09/24 Unknown History mecobalamin (vitamin B12) 1,000 1,000 mcg PO QDAY 11/09/24 03/21/25 History mcg lozenges coenzyme Q10 30 mg capsule 30 mg PO QDAY 11/22/24 03/21/25 History magnesium citrate 100 mg tablet 100 mg PO QDAY 11/22/24 03/21/25 History prednisone 5 mg tablet 2 mg PO DAILY 11/22/24 03/21/25 History acetaminophen 325 mg tablet 650 mg PO QPM PRN pain 03/21/25 03/21/25 History (Tylenol) ibuprofen 200 mg tablet (IBU-200) 400 mg PO BID 03/21/25 03/21/25 History meloxicam 7.5 mg tablet 7.5 mg PO DAILY 03/21/25 03/19/25 History vit C 250 mg-vit E 90 mg-zinc 40 1 tab PO DAILY 03/21/25 03/21/25 History mg-copper 1 wl-njfuhj-rqrrcy capsule (PreserVision AREDS-2) Allergy/AdvReac Type Severity Reaction Status Date / Time No Known Allergies Allergy Verified 03/21/25 16:44 Family History Brother Diabetes Cancer Sister Breast cancer COPD (chronic obstructive pulmonary disease) Heart disease Mother Breast cancer Colon cancer Surgical History History of ankle fracture (~1969) History of wrist fracture (~1959) Hx of LASIK (~2004) History of blepharoplasty (~2022) History of foot surgery History of hand surgery (~2021) History of breast augmentation (~2007) History of bilateral carpal tunnel release History of bunionectomy of both great toes History of arthroscopy of left knee (~1998) History of lumpectomy of left breast (~2006) History of tonsillectomy (~1959) History of hysterectomy (~2007) History of hernia repair (~1998) History of appendectomy (~1963) Social History Smoking Status: Former smoker alcohol intake: current substance use type: does not use ROS ROS ED ROS Narrative see HPI EXAM Physical Exam Narrative Exam Narrative: Vital signs: Reviewed General: Alert and oriented X 3. No acute distress HEENT: Head is normocephalic and atraumatic, sinuses nontender, pupils equal round and reactive. Nares are patent. Oropharynx and throat exams normal. Neck: Supple without lymphadenopathy nontender Cardiovascular: Tachycardic rate and regular rhythm, no murmurs. No rubs or gallops. Normal S1 and S2 Respiratory: Clear to auscultation bilaterally. No wheezes, rales, rhonchi Abdominal: Soft and nontender. Normal bowel sounds. No guarding or rebound. Nonsurgical abdomen Extremities: No lower extremity edema. No tenderness. No bruising. Normal range of motion. Normal sensation. Skin: No rash or redness. Neurological: Cranial nerves II through XII are grossly intact. Normal strength and sensation. Normal cerebellar function The rest of the physical exam is unremarkable Const Vital Signs: 03/21/25 16:42 03/21/25 16:59 03/21/25 17:42 Temperature 97.2 F L Temperature Source Temporal Pulse Rate 130 H 88 Respiratory Rate 22 H 16 Respiratory Effort Normal Non-Labored Blood Pressure 152/77 H 123/58 H Blood Pressure Mean 102 79 Pulse Ox 100 100 Oxygen Delivery Method Room Air 03/21/25 18:00 03/21/25 19:00 03/21/25 20:00 Temperature Temperature Source Pulse Rate 101 H 75 76 Respiratory Rate 18 Respiratory Effort Blood Pressure 129/74 H 123/58 H Blood Pressure Mean 92 79 Pulse Ox 98 Oxygen Delivery Method Room Air 03/21/25 21:00 Temperature Temperature Source Pulse Rate 74 Respiratory Rate 16 Respiratory Effort Blood Pressure 129/71 H Blood Pressure Mean 90 Pulse Ox 99 Oxygen Delivery Method MDM MDM MDM Narrative Medical decision making narrative: Patient is a 70-year-old female presenting to the emergency department for palpitations. Patient was seen and examined. Vitals are stable. She is tachycardic in the 120s on my exam. Stable BP of 152/77. Saturating 100% on room air. Patient resting bed comfortably no acute distress. Differential includes but is not limited to: ACS, cardiac arrhythmia, electrolyte imbalance, thyroid disturbance, pneumonia, PE EKG shows sinus tachycardia at a rate of 121 with a first-degree AV block with a [place] interval of 264. There is a narrow complex QRS. I do see P waves. No ischemic changes. I do not think this is SVT. CBC was leukocytosis and a normal hemoglobin. BMP with no significant abnormalities. TSH within normal limits. Magnesium within normal limits. Troponin reflex mildly elevated however stable with no significant delta change at 18. D-dimer is elevated and CTA of the chest was obtained. CTA of the chest shows no pulmonary embolism. No evidence of pneumonia. Patient was reevaluated after 1 L fluid bolus, heart rate now appears to be normal sinus rhythm on the monitor and the range from 70s to 80s. Patient is no longer experiencing palpitations. I did consult Dr. De La Cruz, on-call cardiology and also the patient's chemical production engineer who was delayed in returning my page and by that time the patient had asked to be discharged which I thought was appropriate given her prolonged wait. She was not agreeable with obtaining a repeat EKG to confirm normal sinus before discharge. Before discharge I did recommend that she call her chemical production engineer to follow-up with soon as possible and I did not think given this is only the second time since October she has had palpitations that she needed to be started on any rate controlling medications. When I did speak to Dr. De La Cruz, he also agreed with the management and plan and will follow-up with her in office. Patient discharged from the Emergency Department. I do not feel that the patient's evaluation reveals any acute reason for admission at this time. I instructed them to either follow-up with their primary care physician or promptly return to the Emergency Department for reevaluation should symptoms worsen or new symptoms develop. I explained what symptoms would indicate the need to return to the emergency department. Shared decision making was used. The patient voiced understanding of the treatment plan and is agreeable with it. Clinical impression: Palpitations History & Record Review Discussion w/independent historian: Patient Additional record(s) reviewed:: Prior outpatient record Lab Data Attestation: I reviewed the patient's lab results. Labs: Laboratory Results - last 24 hr 03/21/25 03/21/25 03/21/25 16:49 17:22 19:12 WBC 5.0 RBC 3.90 L Hgb 13.1 Hct 38.8 MCV 99.5 H MCH 33.6 H MCHC 33.8 RDW Std Deviation 60.6 H RDW Coeff of Mo 16.8 H Plt Count 259 MPV 9.8 Immature Gran % (Auto) 0.200 Neut % (Auto) 79.4 H Lymph % (Auto) 7.2 L [place] % (Auto) 7.2 Eos % (Auto) 5.2 H Baso % (Auto) 0.8 Absolute Neuts (auto) 3.9 Absolute Lymphs (auto) 0.36 L Nucleated RBC % 0 D-Dimer Quant (PE/DVT) 1.78 H* Sodium 135 Potassium 4.1 Chloride 100 Carbon Dioxide 21.6 Anion Gap 13 BUN 11 Creatinine 0.55 L Estim Creat Clear Calc 62.25 Est GFR (MDRD) Non-Af 98 BUN/Creatinine Ratio 19.7 Glucose 128 H Calcium 9.0 Magnesium 2.3 H Troponin T High Sens 18 H Troponin T Hi Sens 2 Hr 18 H TSH 1.390 Radiography Diagnostic Testing: Clinical Impression(s) from Imaging Studies Chest X-Ray 03/21/25 16:55 IMPRESSION: Cardiomegaly with mild congestion. Reading Location: [facility] Chest CTA 03/21/25 18:10 IMPRESSION: No pulmonary embolism. Reading Location: [facility] Discharge Plan Triage Chief Complaint: Palpitations ED Provider: Teresa Bishop Dx/Rx/DC Orders Clinical Impression: Heart palpitations Instructions: ED Heart Palpitations Prescriptions: No Action lorazepam [Ativan] 1 mg tablet 1 mg PO TID PRN (Reason: anxiety) mecobalamin (vitamin B12) 1,000 mcg lozenge 1,000 mcg PO QDAY Rx Instructions: allow to dissolve in mouth OR may chew lightly before swallowing coenzyme Q10 30 mg capsule 30 mg PO QDAY magnesium citrate 100 mg tablet 100 mg PO QDAY prednisone 5 mg tablet 2 mg PO DAILY Patient Comments: steroid cholecalciferol (vitamin D3) [Vitamin D3] 1,000 UNIT tablet 1,000 unit PO DAILY Patient Comments: supplement omega-3 fatty acids-fish oil 1 EACH capsule 2 ea PO DAILY Patient Comments: supplement turmeric (bulk) 5,000 GM powder 1 cap PO DAILY Patient Comments: SUPPLEMENT PreserVision AREDS-2 250-90-40-1 mg capsule 1 tab PO DAILY meloxicam 7.5 mg tablet 7.5 mg PO DAILY ibuprofen [IBU-200] 200 mg tablet 400 mg PO BID Patient Comments: pt says takes 2-3 tabs twice daily acetaminophen [Tylenol] 325 mg tablet 650 mg PO QPM PRN (Reason: pain) azathioprine 50 MG tablet 150 mg PO DAILY Patient Comments: immunosuppress Rx Instructions: Resume Imuran 4 to 5 days after completion of antibiotics Primary Care Provider: Lorena Talbot Referrals: Martin De La Cruz MD [Med Staff - Active Staff, Cardiology] - As soon as possible Lorena Talbot MD [Primary Care Provider, Internal Medicine] Activity Restrictions/Additional Instructions: Call Dr. De La Cruz's office Wednesday for follow-up as soon as possible. Your evaluation in the Emergency Department did not reveal any acute reason for admission. However, I want to emphasize that you may be early in the course of a disease process or illness even if it is not present. For this reason you should follow-up within 24 hours for reevaluation with either your primary care physician or if necessary back here in the Emergency Department. You should return to the Emergency Department immediately if your symptoms worsen or new symptoms develop. Your CT read as below: FINDINGS: PULMONARY ARTERIES: Unremarkable. No pulmonary embolism. AORTA: No acute findings. No thoracic aortic aneurysm. LUNGS AND PLEURAL SPACES: Lung emphysema/COPD. Bibasilar atelectasis or scarring. Fibrotic changes of the lung bases. No mass. No significant effusion. No pneumothorax. HEART: Unremarkable. No cardiomegaly. No significant pericardial effusion. No evidence of RV dysfunction. BONES/JOINTS: No acute fracture. No dislocation. SOFT TISSUES: Unremarkable. LYMPH NODES: Unremarkable. No enlarged lymph nodes. Print Language: Albanian Disposition Disposition: Home, Self Care Discharge Date/Time: 03/21/25 21:30
--- NOTE | 2025-03-21 16:55 | RAD_ITS ---
EXAM: XR Chest, 2 Views CLINICAL INDICATION: PALPITATIONS TECHNIQUE: Frontal and lateral views of the chest. COMPARISON: No relevant prior studies available. FINDINGS: LUNGS AND PLEURAL SPACES: See below. HEART: Cardiomegaly with mild congestion. MEDIASTINUM: Unremarkable. Normal mediastinal contour. BONES/JOINTS: Unremarkable. No acute fracture. RAD/Chest PA and Lateral IMPRESSION: Cardiomegaly with mild congestion. Reading Location: [id number]
[2025-03-21] MEDS: 0.9% Normal Saline (1000mL) 1,000 ML 1000 ML IV (16:58)
[2025-03-21 17:09] LABS: Hematocrit 38.8 % (37-47); Hemoglobin 13.1 g/dL (12.0-15.0); Immature Granulocytes Count 0.010 X10^3/uL (0.0-0.0); Mean Corp Hgb Conc 33.8 g/dL (32-36); Mean Corpuscular Volume 99.5 fL (81-99); Mean Platelet Vol. 9.8 fl (6.2-12.0); NRBC Flagged by Analyzer 0 % (0-5); POSITIVE DIFFERENTIAL YES; Platelet Count 259 K/mm3 (150-450); RBC Distribution Width CV 16.8 % (11.6-14.6); RBC Distribution Width SD 60.6 fl (35.1-43.9); Red Blood Count 3.90 M/mm3 (4.2-5.4); White Blood Count 5.0 K/mm3 (4.4-11.0)
--- NOTE | 2025-03-21 17:14 | EKG12_ITS ---
Test Reason : palp Blood Pressure : */* mmHG Vent. Rate : 121 BPM Atrial Rate : 121 BPM P-R Int : 264 ms QRS Dur : 78 ms QT Int : 318 ms P-R-T Axes : * 70 48 degrees QTcB Int : 451 ms Sinus tachycardia with 1st degree A-V block Otherwise normal ECG Confirmed by GINA COOLEY ([id number]), publishing editor MARICRUZ STARKS ([id number]) on 03/26/2025 6:14:00 AM Referred By: Talon/er Confirmed By: GINA COOLEY
[2025-03-21 17:42] VITALS: BP 123/58; PULSE 88; RESP 16; O2SAT 100
[2025-03-21 17:43] LABS: Troponin T High Sensitivity 18 ng/L (<=14)
[2025-03-21 17:50] LABS: Anion Gap 13 (5-15); BUN 11 mg/dL (4-19); BUN/Creat Ratio 19.7 RATIO (10-20); Calcium,Total 9.0 mg/dL (7.6-11.0); Carbon Dioxide 21.6 mmol/L (21.0-32.0); Chloride 100 mmol/L (98-108); Estimated Creatinine Clearance 62.25 ml/min (50-250); Glucose 128 mg/dL (70-99); Magnesium 2.3 mg/dL (1.5-2.2); Potassium 4.1 mmol/L (3.3-5.1)
[2025-03-21 18:00] VITALS: BP 129/74; PULSE 101
[2025-03-21 18:00] LABS: D-Dimer Quantitative (DVT/PE) 1.78 FEU/ug/m (0.27-0.49)
--- NOTE | 2025-03-21 18:10 | CT_ITS ---
EXAM: CT Angiography Chest Without and With Intravenous Contrast CLINICAL INDICATION: ELEVATED DDIMER TECHNIQUE: Axial computed tomographic angiography images of the chest without and with intravenous contrast. This CT exam was performed using one or more of the following dose reduction techniques: automated exposure control, adjustment of the mA and/or kV according to patient size, and/or use of iterative reconstruction technique. MIP reconstructed images were created and reviewed. CONTRAST: 100 cc Isovue-300 RADIATION DOSE: CTDIvol = 7.5 mGy, DLP = 165.9 mGy-cm COMPARISON: No relevant prior studies available. FINDINGS: PULMONARY ARTERIES: Unremarkable. No pulmonary embolism. AORTA: No acute findings. No thoracic aortic aneurysm. LUNGS AND PLEURAL SPACES: Lung emphysema/COPD. Bibasilar atelectasis or scarring. Fibrotic changes of the lung bases. No mass. No significant effusion. No pneumothorax. HEART: Unremarkable. No cardiomegaly. No significant pericardial effusion. No evidence of RV dysfunction. BONES/JOINTS: No acute fracture. No dislocation. SOFT TISSUES: Unremarkable. LYMPH NODES: Unremarkable. No enlarged lymph nodes. CT/CTA Chest W/WO Contrast IMPRESSION: No pulmonary embolism. Reading Location: [id number]
[2025-03-21 19:00] VITALS: PULSE 75
[2025-03-21 19:48] LABS: Troponin T High Sens 2 HR 18 ng/L (<=14)
[2025-03-21 20:00] VITALS: BP 123/58; PULSE 76; RESP 18; O2SAT 98
[2025-03-21 21:00] VITALS: BP 129/71; PULSE 74; RESP 16; O2SAT 99
--- NOTE | 2025-03-21 21:30 | ED.RN ---
pt tearful and requesting to leave. refusing repeat ekg. pt states its not the staff its family matters she just needed to go. reviewed dc orders with pt emphasized followup with cardiology
== END 2025-03-21 21:30 | disposition home or self-care (01) ==
PROVIDERS: Emergency Provider Student in an Organized Health Care Education/Training Program; PCP Internal Medicine; Visit Provider Student in an Organized Health Care Education/Training Program
DX: R00.2 Palpitations (principal); I25.10 Atherosclerotic heart disease of native coronary artery without angina pectoris; Z87.891 Personal history of nicotine dependence; E78.5 Hyperlipidemia, unspecified; F41.9 Anxiety disorder, unspecified
CPT/HCPCS: 71046; 71275; 80048; 83735; 84443; 84484; 85025; 85379; 93005; 96360; 96361; 99284; Q9967; A4216